=== PATIENT | male | born 1950 | race Caucasian/White ===

== ENCOUNTER → 2017-01-11 | Outpatient (CLI) | payer BC ==
[~2017-01-11] MED LIST: ASPEC325 PO; FLM4 PO; FLUO1TAB12 PO; LISI-461 PO; OMEG10007 PO; PLV75 PO; ZCR20 PO
== END | disposition home or self-care (01) ==
LOC: C.PATHSPEC 15:17
PROVIDERS: ATTEND Internal Medicine
DX: D23.5 Other benign neoplasm of skin of trunk (principal)

== ENCOUNTER → 2017-02-22 | Outpatient (CLI) | payer BC ==
[2017-02-22 14:06] LABS: URINE APPEARANCE TURBID (CLEAR); URINE BILIRUBIN NEG (NEG); URINE COLOR ORANGE; URINE NITRITE NEG (NEG); URINE SPECIFIC GRAVITY 1.024 (1.000-1.030); UROBILINOGEN NEG (NEG)
[2017-02-22 14:07] LABS: MANUAL MICROSCOPIC REQUIRED? NO; REVIEW REQ? NO
[2017-02-22 14:13] LABS: BLOOD UREA NITROGEN 15 mg/dl (7-18); BUN/CREATININE RATIO 15.3 (10-20); CALCIUM 8.7 mg/dl (8.5-10.1); CARBON DIOXIDE 26 mmol/L (21-32); CHLORIDE 107 mmol/L (98-107); GLUCOSE 134 mg/dl (70-99); POTASSIUM 3.7 mmol/L (3.5-5.1); SODIUM 141 mmol/L (136-145)
[2017-02-22 14:16] LABS: CHOLESTEROL 143 mg/dl (0-200); CHOLESTEROL/HDL RATIO 3.3; HDL CHOLESTEROL 43 mg/dl; TRIGLYCERIDES 126 mg/dl (0-150); VERY LOW DENSITY LIPOPROT CALC 25 mg/dl
[2017-02-22 14:30] LABS: ESTIMATED AVERAGE GLUCOSE 123 mg/dl; HA1C FLAG Normal (Normal)
== END | disposition home or self-care (01) ==
LOC: C.LABSPEC 12:42
PROVIDERS: ATTEND Internal Medicine
DX: Z00.00 Encounter for general adult medical examination without abnormal findings (principal); E11.9 Type 2 diabetes mellitus without complications; E78.5 Hyperlipidemia, unspecified; I10 Essential (primary) hypertension

== ENCOUNTER → 2017-09-15 | Outpatient (CLI) | payer BC ==
[2017-09-15 13:46] LABS: BLOOD UREA NITROGEN 17 mg/dl (7-18); BUN/CREATININE RATIO 17.4 (10-20); CALCIUM 8.4 mg/dl (8.5-10.1); CARBON DIOXIDE 24 mmol/L (21-32); CHLORIDE 109 mmol/L (98-107); CHOLESTEROL 146 mg/dl (0-200); CREATININE 0.98 mg/dl (0.60-1.40); GLUCOSE 151 mg/dl (70-99); POTASSIUM 3.7 mmol/L (3.5-5.1); SODIUM 141 mmol/L (136-145)
[2017-09-15 13:49] LABS: CHOLESTEROL/HDL RATIO 3.7; HDL CHOLESTEROL 39 mg/dl; TRIGLYCERIDES 166 mg/dl (0-150); VERY LOW DENSITY LIPOPROT CALC 33 mg/dl
[2017-09-15 13:51] LABS: ESTIMATED AVERAGE GLUCOSE 137 mg/dl; HA1C FLAG Normal (Normal)
== END | disposition home or self-care (01) ==
LOC: C.LABSPEC 12:29
PROVIDERS: ATTEND Internal Medicine
DX: E11.9 Type 2 diabetes mellitus without complications (principal); E78.5 Hyperlipidemia, unspecified; I10 Essential (primary) hypertension; Z11.59 Encounter for screening for other viral diseases

== ENCOUNTER → 2017-11-29 | Outpatient (CLI) | payer BC ==
[~2017-11-29] MED LIST changes: +ACET-1311 PO; +ASPI-113 PO; +DOCU100C PO; +OXYC-737 PO
--- NOTE | 2017-11-29 10:52 | DIAGNOSTIC IMAGING REPORT ---
CHEST PREADMISSION(PA/LAT) CLINICAL HISTORY: BRONCHITIS, R/O L SIDED PNEUMONIA dyspnea COMPARISON STUDY: No previous studies for comparison. FINDINGS: The bones soft tissues and hemidiaphragms are normal. The cardiomediastinal silhouette is normal. The lungs are clear. The pulmonary vasculature is normal. IMPRESSION: Negative chest. The above report was generated using voice recognition software. It may contain grammatical, syntax or spelling errors. Electronically signed by: Mick Dillard M.D. 11/29/2017 10:51 AM Dictated Date/Time: 11/29/2017 10:51 AM
== END | disposition home or self-care (01) ==
LOC: C.RAD 10:17
PROVIDERS: ATTEND Internal Medicine
DX: J40 Bronchitis, not specified as acute or chronic (principal)

== ENCOUNTER → 2018-02-16 | Outpatient (CLI) | payer BC ==
[~2018-02-16] MED LIST changes: -ACET-1311 PO; -ASPI-113 PO; -DOCU100C PO; -OXYC-737 PO
[2018-02-16 13:35] LABS: HEMOGLOBIN A1C 6.3 % (4.5-5.6)
[2018-02-16 13:47] LABS: BLOOD UREA NITROGEN 18 mg/dl (7-18); CARBON DIOXIDE 21 mmol/L (21-32); CREATININE 0.98 mg/dl (0.60-1.40); GLUCOSE 154 mg/dl (70-99); POTASSIUM 3.7 mmol/L (3.5-5.1); SODIUM 140 mmol/L (136-145)
[2018-02-16 13:50] LABS: CHOLESTEROL 150 mg/dl (0-200); LDL CHOLESTEROL (DIRECT) 100 mg/dl
== END | disposition home or self-care (01) ==
LOC: C.LABSPEC 12:32
PROVIDERS: ATTEND Internal Medicine
DX: E11.9 Type 2 diabetes mellitus without complications (principal); I10 Essential (primary) hypertension; E78.5 Hyperlipidemia, unspecified

== ENCOUNTER → 2018-06-25 | Outpatient (CLI) | payer BC ==
[~2018-06-25] MED LIST changes: +ACET-1311 PO; -ASPEC325 PO; +ASPI-113 PO; +DOCU100C PO
--- NOTE | 2018-06-25 14:42 | DIAGNOSTIC IMAGING REPORT ---
CHEST 2 VIEWS ROUTINE HISTORY: 67 years-old Male pat preoperative exam. No acute chest complaints COMPARISON: Chest radiograph 11/29/2017 TECHNIQUE: PA and lateral views of the chest FINDINGS: Mild right hemidiaphragmatic elevation. Cardiac mediastinal and hilar silhouettes are within normal limits. There is no pneumothorax, pleural effusion, focal airspace consolidation or overt pulmonary edema. The bones of the chest appear grossly intact. Multilevel spondylitic spurring of the spine. IMPRESSION: No acute process. The above report was generated using voice recognition software. It may contain grammatical, syntax or spelling errors. Electronically signed by: Jovanni Reed M.D. 06/25/2018 2:41 PM Dictated Date/Time: 06/25/2018 2:39 PM
[2018-06-25 14:55] LABS: BASO % 0.2 %; BASO ABS # 0.01 K/uL (0-0.2); EOS % 0.8 %; EOS ABS # 0.05 K/uL (0-0.5); HEMATOCRIT 42.6 % (42-52); HEMOGLOBIN 14.4 g/dL (14.0-18.0); IG# 0.02 K/uL (0.00-0.02); LYMPH ABS # 1.14 K/uL (1.2-3.4); MEAN CELL VOLUME 92.6 fL (80-100); MEAN CORPUSCULAR HEMOGLOBIN 31.3 pg (25-34); MEAN CORPUSCULAR HGB CONC 33.8 g/dl (32-36); MEAN PLATELET VOLUME 10.3 fL (7.4-10.4); MONO % 7.1 %; MONO ABS # 0.45 K/uL (0.11-0.59); NEUT % 73.6 %; NEUT ABS # 4.66 K/uL (1.4-6.5); PLATELET COUNT 212 K/uL (130-400); RED CELL DISTRIBUTION WIDTH CV 14.7 % (11.5-14.5); RED CELL DISTRIBUTION WIDTH SD 49.3 fL (36.4-46.3); WHITE BLOOD COUNT 6.33 K/uL (4.8-10.8)
[2018-06-25 15:01] LABS: BLOOD UREA NITROGEN 20 mg/dl (7-18); CALCIUM 8.5 mg/dl (8.5-10.1); CARBON DIOXIDE 25 mmol/L (21-32); CREATININE 1.01 mg/dl (0.60-1.40); GLUCOSE 208 mg/dl (70-99); POTASSIUM 4.2 mmol/L (3.5-5.1); SODIUM 140 mmol/L (136-145)
[2018-06-25 15:09] LABS: PTT PATIENT 25.4 SECONDS (21.0-31.0)
== END | disposition home or self-care (01) ==
LOC: C.RAD 13:46
PROVIDERS: ATTEND Surgery Vascular Surgery
DX: Z01.810 Encounter for preprocedural cardiovascular examination (principal); Z01.811 Encounter for preprocedural respiratory examination; Z01.812 Encounter for preprocedural laboratory examination

== ENCOUNTER 2018-06-29 05:58 | Observation (INO) | payer BC, OTHER ==
[2018-06-20 12:43] VITALS: BMI 26.0
--- NOTE | 2018-06-25 10:01 | DIAGNOSTIC IMAGING REPORT ---
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 3-D coronal and sagittal MIPS were obtained from the axial data set and were submitted for review. Additional 3-D rendering images were generated from a separate workstation. All measurements were obtained according to NASCET criteria. A dose lowering technique was used consistent with the principals of JEREMY. FINDINGS: CTA: The imaged inferior cardiac chambers are moderately enlarged with coronary arterial calcifications noted. The visualized ascending thoracic aorta appears mildly dilated measuring up to 4.1 cm in AP dimension. There is tortuosity of the descending thoracic aorta. Moderate mixed plaquing about the aorta and proximal vessels. There is fusiform aneurysmal dilation of the infrarenal abdominal aorta measuring up to 3.7 x 3.0 cm in AP and transverse dimension. Dilation of the left common iliac artery measures up to 2.4 cm. The bilateral common, external and internal iliac arteries are widely patent. Mixed plaque formation at the origin of the superior mesenteric artery which is widely patent. The celiac trunk and inferior mesenteric arteries are also widely patent. There is patency of the bilateral renal arteries. RIGHT LOWER EXTREMITY: The common femoral, profunda femoris and superficial femoral arteries are widely patent with moderate degree of mixed atheromatous and atherosclerotic plaquing present.. There is fusiform partially thrombosed aneurysmal dilation of the popliteal artery measuring up to 2.7 x 3.1 cm in AP and transverse dimension for a craniocaudal length of 6.0 cm, image 113 series 3 and image 11 series 301 which begins at the level of the distal femoral metaphysis extending to the level of the tibiofemoral articulation. Patent tibioperoneal trunk, posterior tibial, peroneal and anterior tibial arteries. Slightly diminished flow within the peroneal artery of the mid to distal lower leg with only two-vessel flow seen at the level of the ankle. LEFT LOWER EXTREMITY: The common femoral, profunda femoris and superficial femoral arteries are widely patent with moderate degree of mixed atheromatous and atherosclerotic plaquing. There is diminished flow about the left lower extremity extending from the knee distally. Within the limitations of the study, the popliteal artery, tibioperoneal trunk, posterior tibial, peroneal and anterior tibial arteries appear patent with three-vessel flow seen to level of the ankle. Degenerative changes about the knees and ankles. CT ABDOMEN AND PELVIS: Mild bronchial wall thickening about the lung bases. 4 mm solid nodule of the lateral basal segment left lower lobe, image 45 series 3. No pneumatosis or pneumoperitoneum. Gallbladder is mildly distended. Liver, spleen, and adrenal glands are unremarkable. The spleen appears mildly enlarged. Mild nonspecific bilateral perinephric stranding. 1.3 cm cyst of the inferior pole left kidney. Mild parenchymal thinning with cortical scarring of the superior pole right kidney. No ureteral calculi or obstructive uropathy. Prostamegaly. Partially decompressed bladder. Moderate fat filled left inguinal hernia. IVC is unremarkable. Mildly prominent likely physiologic nonenlarged inguinal lymph nodes. Small sliding-type hiatal hernia. No bowel obstruction or focal bowel wall thickening. Colonic diverticulosis without diverticulitis. Terminal ileum and appendix appear unremarkable. The soft tissues appear to be within normal limits. Small fat filled periumbilical hernia, diastases 1.6 cm. Bilateral gynecomastia. Degenerative changes of the spine noted. IMPRESSION: 1. Partially thrombosed popliteal artery aneurysm redemonstrated measuring up to 2.7 x 3.1 cm for a craniocaudal length of 6 cm. 2. Mild dilation of the ascending thoracic aorta is also noted along with fusiform aneurysmal dilation of the infrarenal abdominal aorta measuring up to 3.7 x 3.0 cm. Left common iliac artery is also dilated at 2.4 cm. 3. Diminished contrast opacification involving the left lower extremity arterial structures without evidence of a focal high-grade stenosis or vessel occlusion. 4. No acute intra-abdominal or intrapelvic abnormality identified. 5. Colonic diverticulosis without diverticulitis. 6. 4 mm solid nodule of the lateral basal segment left lower lobe. 7. Additional findings as above. Please refer to below summary of Fleischner criteria recommendations for follow-up of incidental CT nodules (Micha Mustafa, Guidelines for management of small pulmonary nodules detected on CT scans: A statement from the Fleischner Society, Radiology 237: [phone].) SOLID NODULES Solitary nodule size: <6 mm * Low risk patients: no follow-up needed * high risk patients: optional CT at 12 months Note: newly detected indeterminate nodule in persons 35 years of age or older. * Low risk patients: minimal or absent history of smoking and/or other known risk factors * high risk patients: history of smoking or of other known risk factors (e.g. first degree relative with lung cancer, or exposure to asbestos, radon, uranium) * if a nodule up to 8 mm is partly solid or is ground glass further follow-up is required after 24 months to exclude possible slow growing adenocarcinoma (BRAVO) The above report was generated using voice recognition software. It may contain grammatical, syntax or spelling errors. Electronically signed by: Jovanni Reed M.D. 06/25/2018 10:00 AM Dictated Date/Time: 06/25/2018 9:35 AM
--- NOTE | 2018-06-25 13:52 | PAT Medication Instructions ---
Service Date Jun 25, 2018. Current Home Medication List Acetaminophen (Tylenol), 3 TABS PO QD PRN for Pain Aspirin Enteric Coated (Ecotrin Or Generic), 325 MG PO QAM Clopidogrel Bisulfate (Clopidogrel), 75 MG PO QAM Docusate Sodium (Stool Softener), 100 MG PO BID Fish Oil (Gilbert-3), 1 CAP PO QAM Fluoxetine Hcl (Fluoxetine Hcl), 20 MG PO QAM Lisinopril (Zestril), 10 MG PO QAM Simvastatin (Simvastatin), 20 MG PO HS Tamsulosin HCl (Tamsulosin HCl), 0.4 MG PO QPM Medication Instructions For Your Scheduled Surgery - Hold the following medications starting 06/26/18: Fish Oil (Gilbert-3), 1 CAP PO QAM - Check with surgeon and prescribing physician for instructions: Aspirin Enteric Coated (Ecotrin Or Generic), 325 MG PO QAM Clopidogrel Bisulfate (Clopidogrel), 75 MG PO QAM - Hold the following medications the morning of surgery: Docusate Sodium (Stool Softener), 100 MG PO BID Lisinopril (Zestril), 10 MG PO QAM - Take the following medications the morning of surgery with a sip of water: Fluoxetine Hcl (Fluoxetine Hcl), 20 MG PO QAM Acetaminophen (Tylenol), 3 TABS PO QD PRN for Pain (okay to take up to 4 hours prior to surgery if needed) - Take the following medications as scheduled the night before surgery: Simvastatin (Simvastatin), 20 MG PO HS Tamsulosin HCl (Tamsulosin HCl), 0.4 MG PO QPM Docusate Sodium (Stool Softener), 100 MG PO BID Acetaminophen (Tylenol), 3 TABS PO QD PRN for Pain (if needed) If you have any questions please call us at [phone] or [phone] or [phone]
[2018-06-25 14:13] VITALS: Ht 182.9 cm; Wt 88.3 kg
[~2018-06-29] VITALS: Ht 182.9 cm; Wt 88.3 kg
[2018-06-29] VITALS (10 sets, daily range): BP systolic 120–153; BP diastolic 67–93; PULSE 56–68; TEMP 36.6–36.7; O2SAT 94–100
--- NOTE | 2018-06-29 05:39 | History and Physical ---
History & Physical Date of Service Jun 29, 2018. History & Physical CC: Right popliteal artery aneurysm HPI: I had the pleasure of seeing your patient in clinic today for followup of his incidentally diagnosed right popliteal artery aneurysm. As you know, he was recently in the emergency department for evaluation of right groin pain. The pain has significantly improved and he attributes it to muscle strain associated with getting in and out of the a large truck. At the time of workup for the right groin pain, he was found to have a right popliteal artery aneurysm that is 3.5 cm in diameter. He states that he has been asymptomatic and has not had any sudden onset of coolness or numbness of the foot, though does state that his bilateral feet are cool at most times. He denies any symptoms of claudication and states he is able to maintain a significant level of activity. 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 He also has hypertension and BPH. MEDICATIONS: Aspirin 325 daily, Plavix 75 daily, docusate, fluoxetine, lisinopril, omega-3 supplement, simvastatin 20, and tamsulosin 0.4 mg daily. He denies any known allergies to medications. FAMILY HISTORY: Significant for CAD and diabetes. 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 He is . He had a remote 5-pack-year history of smoking, however, quit almost 40 years ago. He does drink approximately 3 beers per week. He denies any illicit drug use. PHYSICAL EXAMINATION: Mr. Hill is well-appearing. His blood pressure is 124/ 78 on the left and 126/80 on the right. His heart rate is 64 and he is saturating at 95% on room air. His head is normocephalic and atraumatic. His neck does not have carotid bruits and is supple. His heart rate and rhythm are regular. His lungs are clear to auscultation bilaterally. His radial and femoral pulses are 2+. His left dorsalis pedis pulse is 2+ and right is 1+. His bilateral feet are cool and have sluggish capillary refill. His strength is 5/5 in bilateral upper and lower extremities. IMAGING: Mr. Hill does have a right popliteal artery aneurysm that is 3.5 cm in diameter with some clot noted therein. Imp: Popliteal artery aneurysm Plan: Because of the common incidence of bilateral popliteal aneurysms as well as the relationship to abdominal aortic aneurysms, we will schedule Mr. Hill for a CTA of the abdomen and pelvis with runoff to the lower extremities to evaluate for other sites of aneurysmal disease. We will plan on repairing the aneurysm endovascularly for Mr. Hill in the coming weeks. If you have any questions or concerns, please do not hesitate to contact us. Thank you very much for allowing us to participate in the care of your patient. Addendum: Patient underwent CTA which confirmed a right popliteal artery aneurysm and is now admitted for endovascular repair of his popliteal artery aneurysm. I have discussed the risks options and benefits of the procedure with the patient. The patient understands the risks options and benefits and agrees to the procedure.
[~2018-06-29 05:58] MED LIST changes: +OPTIRAY 320 IV PRN
[2018-06-29] MEDS ORDERED: CEFAZOLIN 2000MG IV PUSH 15 ML IV SCH (06:00)
[2018-06-29] MEDS ORDERED: LACTATED RINGER'S 1000ML 1,000 ML IV SCH ×2 (06:00)
[2018-06-29] MEDS ORDERED: HEPARIN SOD (PORCINE) 5000 UNIT/ML 1 ML VIAL ONE (06:59)
[2018-06-29] MEDS ORDERED: PAPAVERINE HCL INJ 30 MG/ML 2 ML VIAL ONE (06:59)
[2018-06-29] MEDS ORDERED: CEFAZOLIN SOD 1 GM VIAL ONE (07:00)
[2018-06-29] MEDS ORDERED: LIDOCAINE HCL 1% 20 ML VIAL ONE (07:00)
[2018-06-29] MEDS ORDERED: THROMBIN 5000 UNITS KIT ONE (07:00)
[2018-06-29] MEDS ORDERED: BUPIVACAINE/EPINEPHRINE 0.5% MPF 1:200,000 30 ML VIAL ONE (07:00)
[2018-06-29] MEDS ORDERED: IODIXANOL (VISIPAQUE) 270 MG/ML 50ML ONE (07:00)
[2018-06-29] MEDS ORDERED: GELATIN SPONGE SZ 100 ONE (07:01)
[2018-06-29] MEDS ORDERED: EpHEDrine SULFATE INJ 50 MG/ML AMP IV PRN (07:15)
[2018-06-29] MEDS ORDERED: ONDANSETRON INJ 2 MG/ML 2 ML VIAL IV PRN ×2 (07:15→09:45)
[2018-06-29] MEDS ORDERED: ATROPINE SULFATE 0.1 MG/ML 5ML SYR IV PRN (07:15)
[2018-06-29] MEDS ORDERED: FENTANYL CITRATE INJ 50 MCG/1 ML 2 ML VIAL IV PRN (07:15)
--- NOTE | 2018-06-29 07:16 | History & Physical Bridge Note ---
H&P Re-Evaluation Bridge Note: I have examined the patient, reviewed the History & Physical and in the interval since the performance of the History & Physical I have noted the following changes of clinical significance: No changes noted
[2018-06-29] MEDS ORDERED: FENTANYL CITRATE INJ 50 MCG/1 ML 2 ML VIAL ONE ×3 (07:32→09:11)
[2018-06-29] MEDS ORDERED: MIDAZOLAM HCL 1 MG/ML 2ML VIAL ONE ×2 (07:32→08:47)
[2018-06-29] MEDS ORDERED: THROMBIN FOR SOLN 20000 UNIT KIT ONE (07:38)
[2018-06-29] MEDS ORDERED: IV FLUIDS COMPLETED PRN ×2 (08:15→10:00)
[2018-06-29] MEDS ORDERED: KETAMINE HCL INJ 50 MG/ML 10 ML VIAL ONE (08:24)
[2018-06-29] MEDS ORDERED: ONDANSETRON INJ 2 MG/ML 2 ML VIAL ONE (08:41)
[2018-06-29] MEDS ORDERED: LIDOCAINE HCL 2% 2 ML VIAL (20MG/ML) ONE (08:41)
[2018-06-29] MEDS ORDERED: HEPARIN SOD (PORCINE) 1000 UNIT/ML 10 ML VIAL ONE (08:41)
[2018-06-29] MEDS ORDERED: PROPOFOL IV EMULSION 10 MG/ML 20 ML VIAL ONE ×2 (08:41→08:49)
[2018-06-29] MEDS ORDERED: GLYCOPYRROLATE INJ 0.2 MG/ML VIAL ONE (09:18)
[2018-06-29] MEDS ORDERED: ARISTA ABSORBABLE HEMOSTAT 3GM TOP ONE (09:31)
[2018-06-29] MEDS ORDERED: D5W AND 1/2NSS 1,000 ML IV SCH (09:32)
--- NOTE | 2018-06-29 09:32 | [facility] Post Operative Brief Note ---
Immediate Operative Summary Operative Date Jun 29, 2018. Pre-Operative Diagnosis Right popliteal artery aneurysm Post-Operative Diagnosis Same Procedure(s) Performed Endovascular Repair with Stenting of Right Popliteal Artery Aneurysm Surgeon Dr Hood Profile Shaper Operator Surgeon(s) Poornima Cruz MD Estimated Blood Loss 25 Findings Consistent with Post-Op Diagnosis Specimens None Anesthesia Type MAC Disposition Accompanied Pt To Recover: no Disposition: Recovery Room / PACU
[2018-06-29] MEDS ORDERED: IODIXANOL (VISIPAQUE) 270 MG/ML 50ML XX ONE (09:33)
[2018-06-29] MEDS ORDERED: ACETAMINOPHEN 325 MG TAB PO PRN (09:45)
[2018-06-29] MEDS ORDERED: OXYCODONE/ACETAMINOPHEN 5-325 TAB PO PRN (09:45)
--- NOTE | 2018-06-29 10:30 | Anesthesiology Progress Note ---
Anesthesia Post Op Note Date & Time Jun 29, 2018 at 10:30 Vital Signs Pain Intensity: 0 Vital Signs Past 12 Hours Date Time Temp Pulse Resp B/P (MAP) Pulse Ox O2 Delivery O2 Flow Rate FiO2 06/29/18 10:25 36.4 65 16 110/77 96 Room Air 06/29/18 10:15 36.4 73 16 117/76 96 Room Air 06/29/18 10:05 74 16 112/77 96 Room Air 06/29/18 09:55 71 16 108/75 96 Room Air 06/29/18 09:46 36.4 73 16 115/72 95 Oxymask 10 06/29/18 06:43 95 Room Air Notes Mental Status: alert / awake / arousable, participated in evaluation Pt Amnestic to Procedure: Yes Nausea / Vomiting: adequately controlled Pain: adequately controlled Airway Patency, RR, SpO2: stable & adequate BP & HR: stable & adequate Hydration State: stable & adequate Anesthetic Complications: no major complications apparent
[2018-06-29] MEDS: CEFAZOLIN IV 1,000 MG in SYRINGE 0 ML IV SCH ×2 (13:53→21:47)
[2018-06-29] MEDS ORDERED: NURSING DECISION MEDICATION ORDER SCH (15:15)
[2018-06-29] MEDS: DOCUSATE SODIUM 100 MG CAP PO SCH (20:50)
[2018-06-29] MEDS ORDERED: SIMVASTATIN 20 MG TAB PO SCH (21:00)
[2018-06-29] MEDS ORDERED: TAMSULOSIN HCL 0.4 MG CAP PO SCH (21:00)
[2018-06-30 03:10] VITALS: BP 125/75; PULSE 66; TEMP 37.1; O2SAT 95
[2018-06-30 06:55] VITALS: BP 134/76; PULSE 62; TEMP 36.9; O2SAT 95
--- NOTE | 2018-06-30 08:15 | Progress Note ---
Progress Note Date of Service: Jun 30, 2018. Subjective No complaints, Problem List Medical Problems: (1) Groin strain Status: Acute Objective Vital Signs Vital Signs Past 12 Hours Date Time Temp Pulse Resp B/P (MAP) Pulse Ox O2 Delivery O2 Flow Rate FiO2 06/30/18 06:55 36.9 62 16 134/76 (95) 95 Room Air 06/30/18 03:10 37.1 66 14 125/75 (92) 95 Room Air 06/30/18 00:00 Room Air 06/29/18 23:45 36.6 68 14 142/67 (92) 94 Room Air Exam Awake and alert VSS Afebrile Puncture site dry and clean No hematoma Good distal flow Imp: Post endo pop artery repair Plan: Doing well D/C today
--- NOTE | 2018-06-30 08:19 | Discharge Instructions ---
Discharge Instructions Date of Service Jun 30, 2018. Admission Reason for Admission: Right Popliteal Artery Aneurysm Discharge Discharge Diagnosis / Problem: Right popliteal artery aneuyrsm Discharge Goals Goal(s): Therapeutic intervention Activity Recommendations Activity Limitations: per Instructions/Follow-up section Lifting Limitations: none Exercise/Sports Limitations: none May Resume Sexual Activity: when tolerated Shower/Bathe: no limitations Driving or Machine Use: no limitations . Instructions / Follow-Up Instructions / Follow-Up Call [phone] to schedule a follow up appointment if one not already scheduled. SPECIAL CARE INSTRUCTIONS: Medications: * Continue to take your medications as directed. If you have been given a prescription for Plavix, please fill it immediately and take as directed. Incision Care: * Your puncture site may have some bruising and minor swelling for about one week. * You will have a small dressing covering your puncture site. You may remove the dressing after 24 hours and shower. You may let the warm soapy water run over it, but be sure to dry the puncture site well and keep it dry. * DO NOT IMMERSE THE INCISION IN A TUB/POOL/etc. UNTIL HEALED. * Puncture sites should be kept covered with a band-aid until it begins to heal. Restrictions: * Depending on whether you leg or arm was punctured to access the arteries, you will be required to lay flat, hold your arm still, or both, for about 4 hours after the procedure to prevent bleeding. * Limit your activity for the first 48 hours. You may walk and go up and down steps. Avoid excessive bending or movement at the puncture site. Possible Complications: * Excessive Swelling - after blood flow is improved you may notice increased swelling in the lower legs. This is a normal response. This usually depends on the amount of blockages in the leg, how long they have been there prior to your procedure and how much blood flow was restored. Elevating your legs will help to improve this. Please notify our office ([phone] ) if the swelling does not go away after lying in bed overnight. * Infection/Drainage/Bleeding - Drainage or bleeding from the puncture site should be minimal. If you have excessive bleeding or drainage, call our office ([phone]) right away. * Pain - You may experience some mild pain or soreness at your puncture site. If your pain does not improve, please contact our office ([phone]). Call your doctor and seek emergent treatment if you develop: * Temperature above 101 degrees * Any fever or chills * Any redness or purulent drainage from the puncture site * Any new dusky/blue colored toes or feet with coolness or sharp or aching pain. SKIN IRRITATION: * You may experience some redness and/or swelling in the area where radiation was administered. If any skin irritation occurs, please contact your family physician. FOLLOW UP VISIT: Keep any scheduled doctor appointments. Current Hospital Diet Patient's current hospital diet: AHA Diet (Heart Healthy) Discharge Diet Recommended Diet: AHA Diet (Heart Healthy) Procedures Procedures Performed: Endovascular Repair with Stenting of Right Popliteal Artery Aneurysm Pending Studies Studies pending at discharge: no Medical Emergencies . Who to Call and When: Medical Emergencies: If at any time you feel your situation is an emergency, please call 911 immediately. . Non-Emergent Contact Non-Emergency issues call your: Surgeon . "Provider Documentation" section prepared by Nathan Hood. .
[2018-06-30 08:22] VITALS: O2SAT 95
[2018-06-30 08:29] VITALS: BP 134/76; PULSE 62; TEMP 36.9; O2SAT 95
[2018-06-30] MEDS: DOCUSATE SODIUM 100 MG CAP PO SCH (08:38)
[2018-06-30] MEDS ORDERED: CLOPIDOGREL BISULFATE 75 MG TAB PO SCH (09:00)
[2018-06-30] MEDS ORDERED: ENOXAPARIN 30 MG/0.3 ML SYR SQ SCH (09:00)
[2018-06-30] MEDS ORDERED: ASPIRIN 325 MG ECTAB PO SCH (09:00)
[2018-06-30] MEDS ORDERED: LISINOPRIL 10 MG TAB PO SCH (09:00)
[2018-06-30] MEDS ORDERED: FLUOXETINE HCL 20 MG CAP PO SCH (09:00)
== END 2018-06-30 10:16 | disposition home or self-care (01) ==
LOC: C.ACU 05:58 → C.MSN 09:36 → ENRESERV 10:25
PROVIDERS: ADMIT Surgery Vascular Surgery; ATTEND Surgery Vascular Surgery
DX: I72.4 Aneurysm of artery of lower extremity (principal); I10 Essential (primary) hypertension; Z86.73 Personal history of transient ischemic attack (TIA), and cerebral infarction without residual deficits; Z79.82 Long term (current) use of aspirin

== ENCOUNTER → 2018-07-11 | Outpatient (CLI) | payer BC ==
[~2018-07-11] MED LIST changes: -OPTIRAY 320 IV PRN
--- NOTE | 2018-07-11 11:57 | DIAGNOSTIC IMAGING REPORT ---
RIGHT HIP 2 VIEWS HISTORY: Right HIP PAIN COMPARISON: None. FINDINGS: There is no fracture or dislocation. Soft tissues are unremarkable. The visualized pelvic bones are intact. Mild cartilage space narrowing and small marginal osteophyte within the right acetabulum. This is consistent with mild degenerative change. IMPRESSION: Moderate osteoarthritis within the right hip. No fractures. Electronically signed by: Alexey Hennessy M.D. 07/11/2018 11:56 AM Dictated Date/Time: 07/11/2018 11:49 AM
== END | disposition home or self-care (01) ==
LOC: C.RAD 10:50
PROVIDERS: ATTEND Internal Medicine
DX: M16.11 Unilateral primary osteoarthritis, right hip (principal)

== ENCOUNTER 2023-03-31 16:34 | Inpatient (IN) ==
[2023-03-31] MEDS ORDERED: PIPERACILLIN/TAZOBACTAM 4.5 GM/120 ML BAG IV ONE (16:43)
--- NOTE | 2023-03-31 16:53 | Emergency Department Note ---
Impression & Plan DKA (diabetic ketoacidosis), Acute pancreatitis, GUILLERMINA (acute kidney injury), Acute hyperkalemia, Elevated LFTs, Hypoxia, Metabolic acidosis ED Provider Note NAME: RADHA BERGMAN AGE: 72 SEX: M : 1950 ARRIVES VIA: Ambulance INFORMANT: Patient, EMS ED PROVIDER(S): Rome Corbett DO CHIEF COMPLAINT: Difficulty breathing HPI: The patient is a 72-year-old male who presented to the emergency department by ambulance for an evaluation of difficulty breathing. The patient was in his basement when family members thought he was having some difficulty breathing. On the way to check on him he seemed to be breathing very fast and he was some what confused. They called 911. The patient was evaluated by the prehospital personnel. He was found to have clear lungs but significant tachypnea and oxygen saturations were low. I did receive a prehospital notification about the patient. He was found to have hypoxia as well as hyperglycemia. The patient himself offers no complaints. He denies having any headache. He denies having any recent trauma. He denies having any abdominal pain or chest pain but he does seem somewhat slow and confused at times. ROS: See above HPI for pertinent positives & negatives. A total of 10 systems reviewed and were otherwise negative. PAST MEDICAL HISTORY: See Below PAST SURGICAL HISTORY: See Below FAMILY HISTORY: See Below SOCIAL HISTORY: See Below HOME MEDICATIONS: See Below ALLERGIES: See Below VITALS: See Below PHYSICAL EXAMINATION: GENERAL: Patient is very anxious. He is awake to verbal commands. He follows commands slowly. EYES: The conjunctivae are clear. The pupils are round and reactive. EARS, NOSE, MOUTH AND THROAT: The nose is without any evidence of any deformity. Mucous membranes are dry. NECK: The neck is nontender and supple. RESPIRATORY: Significant tachypnea was noted. Diminished breath sounds are noted at both bases but overall lungs were clear. CARDIOVASCULAR: Regular rate and rhythm noted there no murmurs rubs or gallops normal S1 normal S2. GASTROINTESTINAL: Abdomen is distended and tympanitic. There is significant tenderness over the entire abdomen. MUSCULOSKELETAL/EXTREMITIES: There is no evidence of gross deformity full range of motion is noted in the hips and shoulders. SKIN: The skin is cool and dry. There is no significant edema. NEUROLOGIC: Patient is awake to verbal commands. He is oriented to person place but not time. Strength was symmetric. MEDICAL DECISION MAKING: The patient is a 72-year-old male who presented to the emergency department with difficulty breathing. He was found to be hypoxic and tachypneic with clear lungs prior to arrival. The patient was found to have significant metabolic derangement with an acute elevation in his creatinine as well as his potassium. He was treated with IV fluid hydration as well as calcium and insulin and DuoNeb treatment. He was reevaluated multiple times. The patient did have a very distended abdomen. CT of the abdomen and pelvis was obtained. I discussed patient's laboratory and radiographic studies with him and his family members. He was treated with IV antibiotics as well. The patient continued to improve clinically. I discussed his condition with the on-call [place] [facility]ist group. They have agreed to evaluate the patient in the emergency department for further management and disposition. Triage Nursing notes reviewed. Prior medical records reviewed Vital Signs: reviewed and remarkable for tachypnea and hypothermia. Differential diagnosis: Infection, dehydration, metabolic abnormality, hypo/hyperglycemia, electrolyte disturbance, anemia, hypoxia, cardiac sources, intracerebral event, toxicologic, neurologic, as well as other pathologies. ER treatment provided: See below Diagnostics interpreted by me: ECG: EKG was obtained in the emergency department. My interpretation is sinus rhythm at 92 bpm. There is no ectopy. Nonspecific interventricular conduction delay was noted. This was compared to a tracing from July 31, 2022. There was a slight widening in the QRS complex otherwise no significant changes were noted. Cardiac Monitoring: An order was placed for continuous cardiac monitoring. The monitor shows a rate of 92 bpm with sinus rhythm. Laboratory studies: As stated above and show below. Imaging studies: See below. Radiographic imaging was reviewed by myself Consultation(s): I discussed this case with Dr. Bazan who is on-call for the [facility] hospitalist group. ED COURSE: Procedures: none Critical Care: I have personally spent greater than 45 minutes of critical care time in the direct management of this patient. This includes bedside care, interpretation of diagnostic studies, and testing, discussion with consultants, patient, and family members, and other required patient management activities. This 45 minutes is in excess of all separately billable procedures. 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 completed tx over 1 year ago; follows w/ [facility] last visit 06/2022 TIA (transient ischemic attack) x2 last one 8-10yrs ago; has problems processing info and takes longer to process, but can answer questions appropriately, per daughter Surgical History S/P colonoscopy S/P hernia repair Social History Smoking Status: Unknown if ever smoked Tobacco Type: Smokeless Tobacco (Dip or Chew) Second Hand Exposure: No; Do You Dip or Chew Tobacco: Yes; Hx Alcohol Use: Yes Alcohol type: beer Alcohol Intake Frequency: 2-4 x/Month Hx Substance Use: No Preferred Language: Latvian Communication Ability: Effective Visual Impairment: No Limitations Hearing Ability: Normal Ethnoarchaeologist Required: No Beliefs That Will Affect Care: None marital status: Current Living Situation: Alone Current Living Situation Comment: dtr goes to drs appointments - he lives by himself current occupational status: retired Feels Safe at Home: Yes Safety Concerns: Feels Safe At This Time Assistive Devices: None Allergies Allergies Allergy/AdvReac Type Severity Reaction Status Date / Time No Known Allergies Allergy Verified 07/31/22 18:11 Home Meds Home Medications Medication Instructions Recorded Confirmed clopidogrel 75 mg tablet 75 mg PO QAM 08/17/20 03/31/23 fluoxetine 20 mg capsule 20 mg PO QAM 08/17/20 03/31/23 lisinopril 10 mg tablet 10 mg PO QAM 08/17/20 03/31/23 metformin 500 mg tablet 1,000 mg PO BID 08/17/20 03/31/23 aspirin 81 mg tablet,delayed 81 mg PO DAILY 03/31/23 03/31/23 release levothyroxine 88 mcg tablet 88 mcg PO DAILY 03/31/23 03/31/23 (Synthroid) magnesium oxide 400 mg PO BID 03/31/23 03/31/23 simvastatin 40 mg tablet 40 mg PO DAILY 03/31/23 03/31/23 tamsulosin 0.4 mg capsule 0.4 mg PO DAILY 03/31/23 03/31/23 Previous Rx's Medication Instructions Recorded pantoprazole 40 mg tablet,delayed 40 mg PO DAILY #30 tabs 07/05/22 release Results & Data (ED) Vital Signs Vital Signs - 24 hr 03/31/23 16:51 03/31/23 16:38 03/31/23 17:30 Temperature 34.9 C L Temperature Source Rectal Pulse Rate 102 H 89 84 Pulse Rate from SpO2 Sensor 85 Respiratory Rate 35 H 45 H Respiratory Effort / Characteristics Spontaneous Respiratory Depth Shallow Respiratory Pattern Tachypnea Blood Pressure 107/80 94/70 L Blood Pressure Mean 89 78 Blood Pressure Position Lying Pulse Oximetry 88 L 88 L Oxygen Delivery Method Non-rebreather Non-rebreather Oxygen Flow Rate 15 Fraction of Inspired Oxygen Sepsis Recent Fever Within 48 Hours No Sepsis New/Unexplained Change in Mental Status Yes Sepsis Action Taken by Nursing Physician Notified 03/31/23 17:45 03/31/23 18:00 03/31/23 18:27 Temperature Temperature Source Pulse Rate 81 77 92 H Pulse Rate from SpO2 Sensor 79 76 Respiratory Rate 44 H 36 H 31 H Respiratory Effort / Characteristics Spontaneous Respiratory Depth Deep Respiratory Pattern Tachypnea Blood Pressure 93/66 L 111/76 Blood Pressure Mean 75 87 Blood Pressure Position Pulse Oximetry 90 93 90 Oxygen Delivery Method Non-rebreather Non-rebreather Oxygen Flow Rate 15 15 Fraction of Inspired Oxygen 70 Sepsis Recent Fever Within 48 Hours Sepsis New/Unexplained Change in Mental Status Sepsis Action Taken by Nursing 03/31/23 18:21 03/31/23 18:58 03/31/23 19:00 Temperature 35.3 C L 35.6 C L Temperature Source Pulse Rate 92 H 95 H 89 Pulse Rate from SpO2 Sensor 90 96 H 90 Respiratory Rate 33 H 35 H 31 H Respiratory Effort / Characteristics Respiratory Depth Respiratory Pattern Blood Pressure 115/83 121/87 127/70 Blood Pressure Mean 93 98 89 Blood Pressure Position Pulse Oximetry 90 92 95 Oxygen Delivery Method BiPAP BiPAP Oxygen Flow Rate Fraction of Inspired Oxygen 70 70 Sepsis Recent Fever Within 48 Hours Sepsis New/Unexplained Change in Mental Status Sepsis Action Taken by Nursing 03/31/23 19:15 03/31/23 19:39 Temperature 36.2 C L 36.4 C L Temperature Source Pulse Rate 84 84 Pulse Rate from SpO2 Sensor 85 85 Respiratory Rate 34 H 33 H Respiratory Effort / Characteristics Respiratory Depth Respiratory Pattern Blood Pressure 112/74 121/75 Blood Pressure Mean 86 90 Blood Pressure Position Pulse Oximetry 98 96 Oxygen Delivery Method BiPAP BiPAP Oxygen Flow Rate Fraction of Inspired Oxygen 70 70 Sepsis Recent Fever Within 48 Hours Sepsis New/Unexplained Change in Mental Status Sepsis Action Taken by [facility] Medications Current Medication List: was personally reviewed by me Laboratory Data Attestation: I reviewed the patient's lab results. 03/31/23 16:50 03/31/23 16:50 Lab Results 03/31/23 03/31/23 03/31/23 Range/Units 16:50 16:50 16:50 WBC 18.45 H (4.8-10.8) K/ul RBC 5.67 (4.70-6.10) M/uL Hgb 17.5 (14.0-18.0) g/dl POC Hgb (14.0-18.0) g/dl Hct 53.1 H (42.0-52.0) % POC Hct (42-52) % MCV 93.7 (80.0-100.0) fL MCH 30.9 (25.0-34.0) pg MCHC 33.0 (32.0-36.0) g/dL RDW Std Deviation 53.1 H (36.4-46.3) fL RDW Coeff of Dinorah 15.7 H (11.5-14.5) % Plt Count 210 (130-400) K/uL MPV 10.7 (9.4-12.4) fL Immature Gran % (Auto) 0.4 % Neut % (Auto) 90.6 % Lymph % (Auto) 3.1 % Nicholas % (Auto) 5.7 % Eos % (Auto) 0.0 % Baso % (Auto) 0.2 % Neut # (Auto) 16.72 H (1.40-6.50) K/uL Lymph # (Auto) 0.57 L (1.2-3.4) K/uL Nicholas # (Auto) 1.05 H (0.11-0.59) K/uL Eos # (Auto) 0.00 (0-0.50) K/uL Baso # (Auto) 0.03 (0-0.2) K/uL Immature Gran # (Auto) 0.08 (0.01-0.20) K/uL Dohle Bodies 1+ Polychromasia 1+ Echinocytes 2+ PT 13.0 H (9.0-12.0) Seconds INR 1.2 H (0.9-1.1) APTT 26.2 (21.0-31.0) Seconds PTT Ratio 0.9 ABG pH (7.35-7.45) ABG pCO2 (35-46) mmHg ABG pO2 (80-95) mmHg ABG HCO3 (19-24) mmol/L ABG O2 Saturation (90-95) % ABG Base Excess (-9-1.8) mEq/L Donnell Test (Pos) Oxygen Given POC Sodium (135-144) mmol/L Sodium 133 L (136-145) mmol/L POC Potassium (3.3-5.0) mmol/L Potassium 6.9 H* (3.5-5.1) mmol/L POC Chloride (101-112) mmol/L Chloride 98 (98-107) mmol/L Carbon Dioxide 11 L (21-32) mmol/L POC Total CO2 (24-31) mmol/L Anion Gap 24 H (3-11) POC Anion Gap (16-25) mmol/L POC BUN (7-18) mg/dl BUN 42 H (6-23) mg/dl Creatinine 2.35 H (0.6-1.4) mg/dl POC Creatinine (0.6-1.3) mg/dl Est Cr Clr Drug Dosing 32.1 ml/min Est GFR ( Amer) 30.9 ml/min Est GFR (Non-Af Amer) 26.6 ml/min BUN/Creatinine Ratio 17.9 (10-20) Glucose 576 H* (70-99(Fasting)) mg/dl POC Glucose (70-99) mg/dl POC Glucose (other) (70-99) mg/dl Lactate (0.4-2.0) mmol/L Calcium 9.1 (8.6-10.3) mg/dl POC Ioniz Calcium Misha (1.12-1.32) mmol/l Magnesium 2.1 (1.7-2.4) mg/dl Total Bilirubin 6.1 H (0.2-1.0) mg/dl Direct Bilirubin TNP AST 319 H (13-39) U/L ALT 721 H (7-52) U/L Alkaline Phosphatase 142 H (34-104) U/L Lactate Dehydrogenase (86-244) U/L Total Creatine Kinase (30-223) U/L Troponin I High Sens 29.8 H (0-20) pg/ml Total Protein 6.9 (6.0-8.3) gm/dl Albumin 4.1 (3.4-5.0) gm/dl Triglycerides (0-150) mg/dl Lipase 2410 H (11-82) U/L Procalcitonin (0-0.5) ng/ml TSH (0.300-4.500) uIu/ml Free T4 (0.61-1.60) ng/dl Urine Color Urine Appearance (Clear) Urine pH (4.5-7.5) Ur Specific [place] (1.000-1.030) Urine Protein (Negative) Urine Glucose (UA) (Negative) Urine Ketones (Negative) Urine Blood (Negative) Urine Nitrite (Negative) Urine Bilirubin (Negative) Urine Urobilinogen (Negative) Ur Leukocyte Esterase (Negative) Urine WBC (Auto) (0-5) /hpf Urine RBC (Auto) (0-4) /hpf U Hyaline Cast (Auto) (0-5) /lpf U Epithel Cells (Auto) (0-5) /lpf Urine Bacteria (Auto) (Negative) Salicylates (3.0-30) mg/dl Urine Opiates Screen (Neg) Ur Methadone, Qual (Neg) Acetaminophen (10-30) ug/ml Urine Barbiturates (Neg) Ur Phencyclidine (PCP) (Neg) U Amphetamin/Meth Scrn (Neg) MDMA (Ecstasy) Screen (Neg) U Benzodiazepines Scrn (Neg) Ur Cocaine Metabolite (Neg) U Marijuana (THC) Screen (Neg) Ethyl Alcohol mg/dL (<10.0) mg/dl Anaplasma Smear Babesia Smear Lyme Disease IgG Ab (Negative) Lyme Disease IgM Ab (Negative) SARS-CoV-2, RNA, NAAT (NEGATIVE) 03/31/23 03/31/23 03/31/23 Range/Units 16:50 16:54 17:20 WBC (4.8-10.8) K/ul RBC (4.70-6.10) M/uL Hgb (14.0-18.0) g/dl POC Hgb 17.7 (14.0-18.0) g/dl Hct (42.0-52.0) % POC Hct 52 (42-52) % MCV (80.0-100.0) fL MCH (25.0-34.0) pg MCHC (32.0-36.0) g/dL RDW Std Deviation (36.4-46.3) fL RDW Coeff of Dinorah (11.5-14.5) % Plt Count (130-400) K/uL MPV (9.4-12.4) fL Immature Gran % (Auto) % Neut % (Auto) % Lymph % (Auto) % Nicholas % (Auto) % Eos % (Auto) % Baso % (Auto) % Neut # (Auto) (1.40-6.50) K/uL Lymph # (Auto) (1.2-3.4) K/uL Nicholas # (Auto) (0.11-0.59) K/uL Eos # (Auto) (0-0.50) K/uL Baso # (Auto) (0-0.2) K/uL Immature Gran # (Auto) (0.01-0.20) K/uL Dohle Bodies Polychromasia Echinocytes PT (9.0-12.0) Seconds INR (0.9-1.1) APTT (21.0-31.0) Seconds PTT Ratio ABG pH (7.35-7.45) ABG pCO2 (35-46) mmHg ABG pO2 (80-95) mmHg ABG HCO3 (19-24) mmol/L ABG O2 Saturation (90-95) % ABG Base Excess (-9-1.8) mEq/L Donnell Test (Pos) Oxygen Given POC Sodium 133 L (135-144) mmol/L Sodium (136-145) mmol/L POC Potassium 7.2 H* (3.3-5.0) mmol/L Potassium (3.5-5.1) mmol/L POC Chloride 105 (101-112) mmol/L Chloride (98-107) mmol/L Carbon Dioxide (21-32) mmol/L POC Total CO2 13 L (24-31) mmol/L Anion Gap (3-11) POC Anion Gap 24.0 (16-25) mmol/L POC BUN 49 H (7-18) mg/dl BUN (6-23) mg/dl Creatinine (0.6-1.4) mg/dl POC Creatinine 2.2 H (0.6-1.3) mg/dl Est Cr Clr Drug Dosing ml/min Est GFR ( Amer) ml/min Est GFR (Non-Af Amer) ml/min BUN/Creatinine Ratio (10-20) Glucose (70-99(Fasting)) mg/dl POC Glucose (70-99) mg/dl POC Glucose (other) 571 H* (70-99) mg/dl Lactate 12.2 H* (0.4-2.0) mmol/L Calcium (8.6-10.3) mg/dl POC Ioniz Calcium Misha 1.06 L (1.12-1.32) mmol/l Magnesium (1.7-2.4) mg/dl Total Bilirubin (0.2-1.0) mg/dl Direct Bilirubin AST (13-39) U/L ALT (7-52) U/L Alkaline Phosphatase (34-104) U/L Lactate Dehydrogenase (86-244) U/L Total Creatine Kinase (30-223) U/L Troponin I High Sens (0-20) pg/ml Total Protein (6.0-8.3) gm/dl Albumin (3.4-5.0) gm/dl Triglycerides (0-150) mg/dl Lipase (11-82) U/L Procalcitonin 25.05 H (0-0.5) ng/ml TSH (0.300-4.500) uIu/ml Free T4 (0.61-1.60) ng/dl Urine Color Urine Appearance (Clear) Urine pH (4.5-7.5) Ur Specific [place] (1.000-1.030) Urine Protein (Negative) Urine Glucose (UA) (Negative) Urine Ketones (Negative) Urine Blood (Negative) Urine Nitrite (Negative) Urine Bilirubin (Negative) Urine Urobilinogen (Negative) Ur Leukocyte Esterase (Negative) Urine WBC (Auto) (0-5) /hpf Urine RBC (Auto) (0-4) /hpf U Hyaline Cast (Auto) (0-5) /lpf U Epithel Cells (Auto) (0-5) /lpf Urine Bacteria (Auto) (Negative) Salicylates (3.0-30) mg/dl Urine Opiates Screen (Neg) Ur Methadone, Qual (Neg) Acetaminophen (10-30) ug/ml Urine Barbiturates (Neg) Ur Phencyclidine (PCP) (Neg) U Amphetamin/Meth Scrn (Neg) MDMA (Ecstasy) Screen (Neg) U Benzodiazepines Scrn (Neg) Ur Cocaine Metabolite (Neg) U Marijuana (THC) Screen (Neg) Ethyl Alcohol mg/dL (<10.0) mg/dl Anaplasma Smear Babesia Smear Lyme Disease IgG Ab (Negative) Lyme Disease IgM Ab (Negative) SARS-CoV-2, RNA, NAAT (NEGATIVE) 03/31/23 03/31/23 03/31/23 Range/Units 17:24 17:25 18:30 WBC (4.8-10.8) K/ul RBC (4.70-6.10) M/uL Hgb (14.0-18.0) g/dl POC Hgb (14.0-18.0) g/dl Hct (42.0-52.0) % POC Hct (42-52) % MCV (80.0-100.0) fL MCH (25.0-34.0) pg MCHC (32.0-36.0) g/dL RDW Std Deviation (36.4-46.3) fL RDW Coeff of Dinorah (11.5-14.5) % Plt Count (130-400) K/uL MPV (9.4-12.4) fL Immature Gran % (Auto) % Neut % (Auto) % Lymph % (Auto) % Nicholas % (Auto) % Eos % (Auto) % Baso % (Auto) % Neut # (Auto) (1.40-6.50) K/uL Lymph # (Auto) (1.2-3.4) K/uL Nicholas # (Auto) (0.11-0.59) K/uL Eos # (Auto) (0-0.50) K/uL Baso # (Auto) (0-0.2) K/uL Immature Gran # (Auto) (0.01-0.20) K/uL Dohle Bodies Polychromasia Echinocytes PT (9.0-12.0) Seconds INR (0.9-1.1) APTT (21.0-31.0) Seconds PTT Ratio ABG pH 7.23 L (7.35-7.45) ABG pCO2 19 L (35-46) mmHg ABG pO2 65 L (80-95) mmHg ABG HCO3 8 L (19-24) mmol/L ABG O2 Saturation 91.1 (90-95) % ABG Base Excess -17.0 L (-9-1.8) mEq/L Donnell Test Pos (Pos) Oxygen Given ROOM AIR POC Sodium (135-144) mmol/L Sodium (136-145) mmol/L POC Potassium (3.3-5.0) mmol/L Potassium (3.5-5.1) mmol/L POC Chloride (101-112) mmol/L Chloride (98-107) mmol/L Carbon Dioxide (21-32) mmol/L POC Total CO2 (24-31) mmol/L Anion Gap (3-11) POC Anion Gap (16-25) mmol/L POC BUN (7-18) mg/dl BUN (6-23) mg/dl Creatinine (0.6-1.4) mg/dl POC Creatinine (0.6-1.3) mg/dl Est Cr Clr Drug Dosing ml/min Est GFR ( Amer) ml/min Est GFR (Non-Af Amer) ml/min BUN/Creatinine Ratio (10-20) Glucose (70-99(Fasting)) mg/dl POC Glucose (70-99) mg/dl POC Glucose (other) (70-99) mg/dl Lactate (0.4-2.0) mmol/L Calcium (8.6-10.3) mg/dl POC Ioniz Calcium Misha (1.12-1.32) mmol/l Magnesium (1.7-2.4) mg/dl Total Bilirubin (0.2-1.0) mg/dl Direct Bilirubin TNP AST (13-39) U/L ALT (7-52) U/L Alkaline Phosphatase (34-104) U/L Lactate Dehydrogenase (86-244) U/L Total Creatine Kinase (30-223) U/L Troponin I High Sens (0-20) pg/ml Total Protein (6.0-8.3) gm/dl Albumin (3.4-5.0) gm/dl Triglycerides (0-150) mg/dl Lipase (11-82) U/L Procalcitonin (0-0.5) ng/ml TSH (0.300-4.500) uIu/ml Free T4 (0.61-1.60) ng/dl Urine Color Urine Appearance (Clear) Urine pH (4.5-7.5) Ur Specific [place] (1.000-1.030) Urine Protein (Negative) Urine Glucose (UA) (Negative) Urine Ketones (Negative) Urine Blood (Negative) Urine Nitrite (Negative) Urine Bilirubin (Negative) Urine Urobilinogen (Negative) Ur Leukocyte Esterase (Negative) Urine WBC (Auto) (0-5) /hpf Urine RBC (Auto) (0-4) /hpf U Hyaline Cast (Auto) (0-5) /lpf U Epithel Cells (Auto) (0-5) /lpf Urine Bacteria (Auto) (Negative) Salicylates (3.0-30) mg/dl Urine Opiates Screen (Neg) Ur Methadone, Qual (Neg) Acetaminophen (10-30) ug/ml Urine Barbiturates (Neg) Ur Phencyclidine (PCP) (Neg) U Amphetamin/Meth Scrn (Neg) MDMA (Ecstasy) Screen (Neg) U Benzodiazepines Scrn (Neg) Ur Cocaine Metabolite (Neg) U Marijuana (THC) Screen (Neg) Ethyl Alcohol mg/dL (<10.0) mg/dl Anaplasma Smear Babesia Smear Lyme Disease IgG Ab (Negative) Lyme Disease IgM Ab (Negative) SARS-CoV-2, RNA, NAAT NEGATIVE (NEGATIVE) 03/31/23 03/31/23 03/31/23 Range/Units 18:31 18:58 18:58 WBC (4.8-10.8) K/ul RBC (4.70-6.10) M/uL Hgb (14.0-18.0) g/dl POC Hgb (14.0-18.0) g/dl Hct (42.0-52.0) % POC Hct (42-52) % MCV (80.0-100.0) fL MCH (25.0-34.0) pg MCHC (32.0-36.0) g/dL RDW Std Deviation (36.4-46.3) fL RDW Coeff of Dinorah (11.5-14.5) % Plt Count (130-400) K/uL MPV (9.4-12.4) fL Immature Gran % (Auto) % Neut % (Auto) % Lymph % (Auto) % Nicholas % (Auto) % Eos % (Auto) % Baso % (Auto) % Neut # (Auto) (1.40-6.50) K/uL Lymph # (Auto) (1.2-3.4) K/uL Nicholas # (Auto) (0.11-0.59) K/uL Eos # (Auto) (0-0.50) K/uL Baso # (Auto) (0-0.2) K/uL Immature Gran # (Auto) (0.01-0.20) K/uL Dohle Bodies Polychromasia Echinocytes PT (9.0-12.0) Seconds INR (0.9-1.1) APTT (21.0-31.0) Seconds PTT Ratio ABG pH (7.35-7.45) ABG pCO2 (35-46) mmHg ABG pO2 (80-95) mmHg ABG HCO3 (19-24) mmol/L ABG O2 Saturation (90-95) % ABG Base Excess (-9-1.8) mEq/L Donnell Test (Pos) Oxygen Given POC Sodium (135-144) mmol/L Sodium (136-145) mmol/L POC Potassium (3.3-5.0) mmol/L Potassium (3.5-5.1) mmol/L POC Chloride (101-112) mmol/L Chloride (98-107) mmol/L Carbon Dioxide (21-32) mmol/L POC Total CO2 (24-31) mmol/L Anion Gap (3-11) POC Anion Gap (16-25) mmol/L POC BUN (7-18) mg/dl BUN (6-23) mg/dl Creatinine (0.6-1.4) mg/dl POC Creatinine (0.6-1.3) mg/dl Est Cr Clr Drug Dosing ml/min Est GFR ( Amer) ml/min Est GFR (Non-Af Amer) ml/min BUN/Creatinine Ratio (10-20) Glucose (70-99(Fasting)) mg/dl POC Glucose (70-99) mg/dl POC Glucose (other) (70-99) mg/dl Lactate 5.2 H* (0.4-2.0) mmol/L Calcium (8.6-10.3) mg/dl POC Ioniz Calcium Misha (1.12-1.32) mmol/l Magnesium (1.7-2.4) mg/dl Total Bilirubin (0.2-1.0) mg/dl Direct Bilirubin AST (13-39) U/L ALT (7-52) U/L Alkaline Phosphatase (34-104) U/L Lactate Dehydrogenase (86-244) U/L Total Creatine Kinase (30-223) U/L Troponin I High Sens (0-20) pg/ml Total Protein (6.0-8.3) gm/dl Albumin (3.4-5.0) gm/dl Triglycerides (0-150) mg/dl Lipase (11-82) U/L Procalcitonin (0-0.5) ng/ml TSH 0.192 L (0.300-4.500) uIu/ml Free T4 1.06 (0.61-1.60) ng/dl Urine Color Dark Yellow Urine Appearance Cloudy A (Clear) Urine pH 5.0 (4.5-7.5) Ur Specific [place] 1.028 (1.000-1.030) Urine Protein 1+ H (Negative) Urine Glucose (UA) 3+ H (Negative) Urine Ketones 1+ H (Negative) Urine Blood Negative (Negative) Urine Nitrite Negative (Negative) Urine Bilirubin 1+ H (Negative) Urine Urobilinogen Negative (Negative) Ur Leukocyte Esterase Negative (Negative) Urine WBC (Auto) 5-10 H (0-5) /hpf Urine RBC (Auto) 5-10 H (0-4) /hpf U Hyaline Cast (Auto) 5-10 H (0-5) /lpf U Epithel Cells (Auto) 20-30 H (0-5) /lpf Urine Bacteria (Auto) Negative (Negative) Salicylates (3.0-30) mg/dl Urine Opiates Screen (Neg) Ur Methadone, Qual (Neg) Acetaminophen (10-30) ug/ml Urine Barbiturates (Neg) Ur Phencyclidine (PCP) (Neg) U Amphetamin/Meth Scrn (Neg) MDMA (Ecstasy) Screen (Neg) U Benzodiazepines Scrn (Neg) Ur Cocaine Metabolite (Neg) U Marijuana (THC) Screen (Neg) Ethyl Alcohol mg/dL (<10.0) mg/dl Anaplasma Smear Babesia Smear Lyme Disease IgG Ab (Negative) Lyme Disease IgM Ab (Negative) SARS-CoV-2, RNA, NAAT (NEGATIVE) 03/31/23 03/31/23 03/31/23 Range/Units 18:58 19:05 19:37 WBC (4.8-10.8) K/ul RBC (4.70-6.10) M/uL Hgb (14.0-18.0) g/dl POC Hgb (14.0-18.0) g/dl Hct (42.0-52.0) % POC Hct (42-52) % MCV (80.0-100.0) fL MCH (25.0-34.0) pg MCHC (32.0-36.0) g/dL RDW Std Deviation (36.4-46.3) fL RDW Coeff of Dinorah (11.5-14.5) % Plt Count (130-400) K/uL MPV (9.4-12.4) fL Immature Gran % (Auto) % Neut % (Auto) % Lymph % (Auto) % Nicholas % (Auto) % Eos % (Auto) % Baso % (Auto) % Neut # (Auto) (1.40-6.50) K/uL Lymph # (Auto) (1.2-3.4) K/uL Nicholas # (Auto) (0.11-0.59) K/uL Eos # (Auto) (0-0.50) K/uL Baso # (Auto) (0-0.2) K/uL Immature Gran # (Auto) (0.01-0.20) K/uL Dohle Bodies Polychromasia Echinocytes PT (9.0-12.0) Seconds INR (0.9-1.1) APTT (21.0-31.0) Seconds PTT Ratio ABG pH (7.35-7.45) ABG pCO2 (35-46) mmHg ABG pO2 (80-95) mmHg ABG HCO3 (19-24) mmol/L ABG O2 Saturation (90-95) % ABG Base Excess (-9-1.8) mEq/L Donnell Test (Pos) Oxygen Given POC Sodium (135-144) mmol/L Sodium 139 (136-145) mmol/L POC Potassium (3.3-5.0) mmol/L Potassium 5.2 H D (3.5-5.1) mmol/L POC Chloride (101-112) mmol/L Chloride 105 (98-107) mmol/L Carbon Dioxide 16 L (21-32) mmol/L POC Total CO2 (24-31) mmol/L Anion Gap 18 H (3-11) POC Anion Gap (16-25) mmol/L POC BUN (7-18) mg/dl BUN 41 H (6-23) mg/dl Creatinine 2.05 H D (0.6-1.4) mg/dl POC Creatinine (0.6-1.3) mg/dl Est Cr Clr Drug Dosing 36.8 ml/min Est GFR ( Amer) 36.4 ml/min Est GFR (Non-Af Amer) 31.4 ml/min BUN/Creatinine Ratio 20.0 (10-20) Glucose 390 H* (70-99(Fasting)) mg/dl POC Glucose 472 H* (70-99) mg/dl POC Glucose (other) (70-99) mg/dl Lactate (0.4-2.0) mmol/L Calcium 10.2 (8.6-10.3) mg/dl POC Ioniz Calcium Misha (1.12-1.32) mmol/l Magnesium (1.7-2.4) mg/dl Total Bilirubin (0.2-1.0) mg/dl Direct Bilirubin 3.1 H AST (13-39) U/L ALT (7-52) U/L Alkaline Phosphatase (34-104) U/L Lactate Dehydrogenase (86-244) U/L Total Creatine Kinase 136 (30-223) U/L Troponin I High Sens (0-20) pg/ml Total Protein (6.0-8.3) gm/dl Albumin (3.4-5.0) gm/dl Triglycerides 143 (0-150) mg/dl Lipase (11-82) U/L Procalcitonin (0-0.5) ng/ml TSH (0.300-4.500) uIu/ml Free T4 (0.61-1.60) ng/dl Urine Color Urine Appearance (Clear) Urine pH (4.5-7.5) Ur Specific [place] (1.000-1.030) Urine Protein (Negative) Urine Glucose (UA) (Negative) Urine Ketones (Negative) Urine Blood (Negative) Urine Nitrite (Negative) Urine Bilirubin (Negative) Urine Urobilinogen (Negative) Ur Leukocyte Esterase (Negative) Urine WBC (Auto) (0-5) /hpf Urine RBC (Auto) (0-4) /hpf U Hyaline Cast (Auto) (0-5) /lpf U Epithel Cells (Auto) (0-5) /lpf Urine Bacteria (Auto) (Negative) Salicylates (3.0-30) mg/dl Urine Opiates Screen Neg (Neg) Ur Methadone, Qual Neg (Neg) Acetaminophen (10-30) ug/ml Urine Barbiturates Neg (Neg) Ur Phencyclidine (PCP) Neg (Neg) U Amphetamin/Meth Scrn Neg (Neg) MDMA (Ecstasy) Screen Neg (Neg) U Benzodiazepines Scrn Neg (Neg) Ur Cocaine Metabolite Neg (Neg) U Marijuana (THC) Screen Neg (Neg) Ethyl Alcohol mg/dL (<10.0) mg/dl Anaplasma Smear Babesia Smear Lyme Disease IgG Ab (Negative) Lyme Disease IgM Ab (Negative) SARS-CoV-2, RNA, NAAT (NEGATIVE) 03/31/23 03/31/23 03/31/23 Range/Units 19:37 19:37 19:37 WBC (4.8-10.8) K/ul RBC (4.70-6.10) M/uL Hgb (14.0-18.0) g/dl POC Hgb (14.0-18.0) g/dl Hct (42.0-52.0) % POC Hct (42-52) % MCV (80.0-100.0) fL MCH (25.0-34.0) pg MCHC (32.0-36.0) g/dL RDW Std Deviation (36.4-46.3) fL RDW Coeff of Dinorah (11.5-14.5) % Plt Count (130-400) K/uL MPV (9.4-12.4) fL Immature Gran % (Auto) % Neut % (Auto) % Lymph % (Auto) % Nicholas % (Auto) % Eos % (Auto) % Baso % (Auto) % Neut # (Auto) (1.40-6.50) K/uL Lymph # (Auto) (1.2-3.4) K/uL Nicholas # (Auto) (0.11-0.59) K/uL Eos # (Auto) (0-0.50) K/uL Baso # (Auto) (0-0.2) K/uL Immature Gran # (Auto) (0.01-0.20) K/uL Dohle Bodies Polychromasia Echinocytes PT (9.0-12.0) Seconds INR (0.9-1.1) APTT (21.0-31.0) Seconds PTT Ratio ABG pH (7.35-7.45) ABG pCO2 (35-46) mmHg ABG pO2 (80-95) mmHg ABG HCO3 (19-24) mmol/L ABG O2 Saturation (90-95) % ABG Base Excess (-9-1.8) mEq/L Donnell Test (Pos) Oxygen Given POC Sodium (135-144) mmol/L Sodium (136-145) mmol/L POC Potassium (3.3-5.0) mmol/L Potassium (3.5-5.1) mmol/L POC Chloride (101-112) mmol/L Chloride (98-107) mmol/L Carbon Dioxide (21-32) mmol/L POC Total CO2 (24-31) mmol/L Anion Gap (3-11) POC Anion Gap (16-25) mmol/L POC BUN (7-18) mg/dl BUN (6-23) mg/dl Creatinine (0.6-1.4) mg/dl POC Creatinine (0.6-1.3) mg/dl Est Cr Clr Drug Dosing ml/min Est GFR ( Amer) ml/min Est GFR (Non-Af Amer) ml/min BUN/Creatinine Ratio (10-20) Glucose (70-99(Fasting)) mg/dl POC Glucose (70-99) mg/dl POC Glucose (other) (70-99) mg/dl Lactate (0.4-2.0) mmol/L Calcium (8.6-10.3) mg/dl POC Ioniz Calcium Misha (1.12-1.32) mmol/l Magnesium (1.7-2.4) mg/dl Total Bilirubin (0.2-1.0) mg/dl Direct Bilirubin AST (13-39) U/L ALT (7-52) U/L Alkaline Phosphatase (34-104) U/L Lactate Dehydrogenase 405 H (86-244) U/L Total Creatine Kinase (30-223) U/L Troponin I High Sens (0-20) pg/ml Total Protein (6.0-8.3) gm/dl Albumin (3.4-5.0) gm/dl Triglycerides (0-150) mg/dl Lipase (11-82) U/L Procalcitonin (0-0.5) ng/ml TSH (0.300-4.500) uIu/ml Free T4 (0.61-1.60) ng/dl Urine Color Urine Appearance (Clear) Urine pH (4.5-7.5) Ur Specific [place] (1.000-1.030) Urine Protein (Negative) Urine Glucose (UA) (Negative) Urine Ketones (Negative) Urine Blood (Negative) Urine Nitrite (Negative) Urine Bilirubin (Negative) Urine Urobilinogen (Negative) Ur Leukocyte Esterase (Negative) Urine WBC (Auto) (0-5) /hpf Urine RBC (Auto) (0-4) /hpf U Hyaline Cast (Auto) (0-5) /lpf U Epithel Cells (Auto) (0-5) /lpf Urine Bacteria (Auto) (Negative) Salicylates (3.0-30) mg/dl Urine Opiates Screen (Neg) Ur Methadone, Qual (Neg) Acetaminophen (10-30) ug/ml Urine Barbiturates (Neg) Ur Phencyclidine (PCP) (Neg) U Amphetamin/Meth Scrn (Neg) MDMA (Ecstasy) Screen (Neg) U Benzodiazepines Scrn (Neg) Ur Cocaine Metabolite (Neg) U Marijuana (THC) Screen (Neg) Ethyl Alcohol mg/dL (<10.0) mg/dl Anaplasma Smear See Comment Babesia Smear See Comment Lyme Disease IgG Ab Negative (Negative) Lyme Disease IgM Ab Positive A (Negative) SARS-CoV-2, RNA, NAAT (NEGATIVE) 03/31/23 03/31/23 Range/Units 19:37 19:37 WBC (4.8-10.8) K/ul RBC (4.70-6.10) M/uL Hgb (14.0-18.0) g/dl POC Hgb (14.0-18.0) g/dl Hct (42.0-52.0) % POC Hct (42-52) % MCV (80.0-100.0) fL MCH (25.0-34.0) pg MCHC (32.0-36.0) g/dL RDW Std Deviation (36.4-46.3) fL RDW Coeff of Dinorah (11.5-14.5) % Plt Count (130-400) K/uL MPV (9.4-12.4) fL Immature Gran % (Auto) % Neut % (Auto) % Lymph % (Auto) % Nicholas % (Auto) % Eos % (Auto) % Baso % (Auto) % Neut # (Auto) (1.40-6.50) K/uL Lymph # (Auto) (1.2-3.4) K/uL Nicholas # (Auto) (0.11-0.59) K/uL Eos # (Auto) (0-0.50) K/uL Baso # (Auto) (0-0.2) K/uL Immature Gran # (Auto) (0.01-0.20) K/uL Dohle Bodies Polychromasia Echinocytes PT (9.0-12.0) Seconds INR (0.9-1.1) APTT (21.0-31.0) Seconds PTT Ratio ABG pH (7.35-7.45) ABG pCO2 (35-46) mmHg ABG pO2 (80-95) mmHg ABG HCO3 (19-24) mmol/L ABG O2 Saturation (90-95) % ABG Base Excess (-9-1.8) mEq/L Donnell Test (Pos) Oxygen Given POC Sodium (135-144) mmol/L Sodium (136-145) mmol/L POC Potassium (3.3-5.0) mmol/L Potassium (3.5-5.1) mmol/L POC Chloride (101-112) mmol/L Chloride (98-107) mmol/L Carbon Dioxide (21-32) mmol/L POC Total CO2 (24-31) mmol/L Anion Gap (3-11) POC Anion Gap (16-25) mmol/L POC BUN (7-18) mg/dl BUN (6-23) mg/dl Creatinine (0.6-1.4) mg/dl POC Creatinine (0.6-1.3) mg/dl Est Cr Clr Drug Dosing ml/min Est GFR ( Amer) ml/min Est GFR (Non-Af Amer) ml/min BUN/Creatinine Ratio (10-20) Glucose (70-99(Fasting)) mg/dl POC Glucose (70-99) mg/dl POC Glucose (other) (70-99) mg/dl Lactate (0.4-2.0) mmol/L Calcium (8.6-10.3) mg/dl POC Ioniz Calcium Misha (1.12-1.32) mmol/l Magnesium (1.7-2.4) mg/dl Total Bilirubin (0.2-1.0) mg/dl Direct Bilirubin AST (13-39) U/L ALT (7-52) U/L Alkaline Phosphatase (34-104) U/L Lactate Dehydrogenase (86-244) U/L Total Creatine Kinase (30-223) U/L Troponin I High Sens (0-20) pg/ml Total Protein (6.0-8.3) gm/dl Albumin (3.4-5.0) gm/dl Triglycerides (0-150) mg/dl Lipase (11-82) U/L Procalcitonin (0-0.5) ng/ml TSH (0.300-4.500) uIu/ml Free T4 (0.61-1.60) ng/dl Urine Color Urine Appearance (Clear) Urine pH (4.5-7.5) Ur Specific [place] (1.000-1.030) Urine Protein (Negative) Urine Glucose (UA) (Negative) Urine Ketones (Negative) Urine Blood (Negative) Urine Nitrite (Negative) Urine Bilirubin (Negative) Urine Urobilinogen (Negative) Ur Leukocyte Esterase (Negative) Urine WBC (Auto) (0-5) /hpf Urine RBC (Auto) (0-4) /hpf U Hyaline Cast (Auto) (0-5) /lpf U Epithel Cells (Auto) (0-5) /lpf Urine Bacteria (Auto) (Negative) Salicylates < 3.0 L (3.0-30) mg/dl Urine Opiates Screen (Neg) Ur Methadone, Qual (Neg) Acetaminophen < 3 L (10-30) ug/ml Urine Barbiturates (Neg) Ur Phencyclidine (PCP) (Neg) U Amphetamin/Meth Scrn (Neg) MDMA (Ecstasy) Screen (Neg) U Benzodiazepines Scrn (Neg) Ur Cocaine Metabolite (Neg) U Marijuana (THC) Screen (Neg) Ethyl Alcohol mg/dL < 10.0 (<10.0) mg/dl Anaplasma Smear Babesia Smear Lyme Disease IgG Ab (Negative) Lyme Disease IgM Ab (Negative) SARS-CoV-2, RNA, NAAT (NEGATIVE) Administered Medications Heparin Sodium (Porcine) (Heparin Sod 5,000 Unit/0.5 Ml Vial) 5,000 units SQ Q12 [facility] Stop: 04/30/23 20:59 Last Admin: 03/31/23 22:06 Dose: 5,000 units Documented By: JIMMIE Insulin Human Regular 250 (units/ Sodium Chloride) 250 mls @ 8.8 mls/hr IV .Q24H [facility]; Protocol Stop: 04/30/23 19:14 Last Admin: 03/31/23 19:59 Dose: 8.8 units/hr, 8.8 mls/hr Documented By: DIO Co-signed By: ELLE Pantoprazole Sodium 40 mg/ (Syringe) 10 mls @ 5 mls/min IV DAILY@1100 [facility] Stop: 04/30/23 20:30 Last Admin: 03/31/23 21:58 Dose: 5 mls/min Documented By: JIMMIE Parenteral Electrolytes (Plasma-Lyte A Ph 7.4) 1,000 mls @ 150 mls/hr IV .Q6H40M [facility] Stop: 04/30/23 20:44 Last Admin: 03/31/23 21:52 Dose: 150 mls/hr Documented By: JIMMIE Insulin Aspart (Insulin Aspart Per Unit Charge) 0 units SC ACHS [facility] Stop: 04/30/23 20:59 Last Admin: 03/31/23 22:07 Dose: Not Given Documented By: JIMMIE Magnesium Oxide (Magnesium Oxide 400 Mg Tab) 400 mg PO BID [place] Stop: 04/30/23 20:59 Last Admin: 03/31/23 22:08 Dose: 400 mg Documented By: BRA Discontinued Medications Albuterol (Albut/Ipratrop 3mg/0.5mg Neb 3 Ml Vial) 12 ml NEB ONE ONE; Protocol Stop: 03/31/23 19:11 Last Admin: 03/31/23 19:55 Dose: 12 ml Documented By: ANTONINA Piperacillin Sod/Tazobactam Sod (Zosyn) 4.5 gm in 120 mls @ 240 mls/hr IV NOW ONE Stop: 03/31/23 17:12 Last Infusion: 03/31/23 18:08 Dose: 0 mls/hr Documented By: Admin: 03/31/23 17:08 Dose: 240 mls/hr Documented By: DIO Calcium Chloride 1,000 mg/ (Dextrose) 60 mls @ 240 mls/hr IV NOW STA Stop: 03/31/23 17:09 Last Infusion: 03/31/23 17:50 Dose: 0 mls/hr Documented By: Admin: 03/31/23 17:35 Dose: 240 mls/hr Documented By: ARS Sodium Chloride (Nss 1000ml) 1,000 mls @ 999 mls/hr IV .Q1H1M ONE Stop: 03/31/23 17:55 Last Infusion: 03/31/23 18:09 Dose: 0 mls/hr Documented By: Admin: 03/31/23 17:07 Dose: 999 mls/hr Documented By: BEZ Sodium Chloride (Nss 1000ml) 1,000 mls @ 999 mls/hr IV .Q1H1M ONE Stop: 03/31/23 18:45 Last Infusion: 03/31/23 19:12 Dose: 0 mls/hr Documented By: Admin: 03/31/23 18:06 Dose: 999 mls/hr Documented By: DIO Lactated Ringer's (Lr) 500 mls @ 999 mls/hr IV .Q31M ONE Stop: 03/31/23 19:38 Last Admin: 03/31/23 19:25 Dose: 999 mls/hr Documented By: RED Doxycycline Hyclate 100 mg/ (Dextrose) 110 mls @ 50 mls/hr IV NOW ONE Stop: 03/31/23 22:11 Last Admin: 03/31/23 19:59 Dose: 50 mls/hr Documented By: DIO Insulin Human Regular (Novolin-R Insulin Per Unit Charge) 10 units IV NOW STA Stop: 03/31/23 16:56 Last Admin: 03/31/23 17:08 Dose: 10 units Documented By: DIO Co-signed By: MARLEY Chapman (Stat Insulin Drip) 1 each N/A NOW STA Stop: 03/31/23 19:04 Last Admin: 03/31/23 20:04 Dose: 1 each Documented By: DIO Chapman (Dka Goal Range 150-250 Mg/Dl) 1 each N/A ONE ONE Stop: 03/31/23 19:04 Last Admin: 03/31/23 20:04 Dose: 1 each Documented By: DIO Imaging Data Attestation: I personally reviewed and interpreted this imaging study as follows: My Impression: 1 view chest x-ray was obtained in the emergency department. My interpretation is no free air, no definite infiltrate, final report below Radiologist's Impression: Chest X-Ray 03/31/23 16:40 SINGLE VIEW CHEST CLINICAL HISTORY: Sepsis. FINDINGS: An AP, portable, upright chest radiograph is compared to study dated 07/31/2022 and correlated with chest CT dated 04/04/2022. The heart is enlarged noting atherosclerotic calcification of the thoracic aorta. The pulmonary vasculature is noncongested. There is chronic elevation of the right hemidiaphragm with bibasilar scarring/atelectasis. No airspace consolidation or large pleural effusion is identified. No pneumothorax is seen. The skeletal structures are osteopenic. The bony thorax is grossly intact. Surgical clips are noted in the left axilla. IMPRESSION: Cardiomegaly with no acute cardiopulmonary abnormality identified. ACT 112: Negative or not required by law. Electronically signed by: Stephen Devlin M.D. 03/31/2023 5:36 PM Abdomen/Pelvis CT 03/31/23 17:45 CT SCAN OF THE ABDOMEN AND PELVIS WITHOUT IV CONTRAST CLINICAL HISTORY: Sepsis. Change in mental status. COMPARISON STUDY: Abdominal CT dated 07/29/2022. TECHNIQUE: CT scan of the abdomen and pelvis is performed from the lung bases to the proximal femora. Images are reviewed in the axial, sagittal, and coronal planes. IV contrast was not administered for this examination as per the referring clinician. Note that the examination was performed and significantly suboptimal fashion without oral and IV contrast. The examination is degraded by motion artifact, as well as by streak artifact from the arms which could not be elevated above the abdomen. A dose lowering technique was utilized adhering to the principles of ALARA. CT DOSE: 1703.59 mGy.cm FINDINGS: Lung bases: The heart is enlarged and without pericardial effusion. The coronary arteries are densely calcified. Evaluation of the lung bases is degraded by motion artifact. No airspace consolidation or pleural effusion is identified. A 3 mm pleural-based nodule in the right middle lobe on image #15 is unchanged. There is a small to moderate hiatal hernia. Gynecomastia is noted. Liver: Evaluation of the liver is compromised by streak artifact. The unenhanced liver is appears normal in size, contour, and attenuation. There is no intrahepatic biliary ductal dilatation. Gallbladder: Unremarkable. Spleen: Normal in size and attenuation. Pancreas: The unenhanced pancreas appears edematous. There is peripancreatic inflammation and fluid, and the appearance is typical for acute pancreatitis. No organized peripancreatic fluid collection is identified. Adrenal glands: Unremarkable. Kidneys: The unenhanced kidneys demonstrate mild cortical atrophy and are without hydronephrosis. There are no renal calculi identified. A 2.8 cm cyst arises from the left lower pole. Abdominal vasculature: There is advanced atherosclerotic calcification and ectasia of the abdominal aorta. 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 Bowel: There is mild colonic diverticulosis without CT evidence of acute diverticulitis. Moderate fecal attention is seen throughout the colon. No bowel obstruction is identified. The appendix is well-visualized and normal. Peritoneum: No discrete peritoneal free air is seen. There is a small volume of abdominopelvic ascites. There is a large fat-containing umbilical hernia. Lymphadenopathy: None. Pelvic viscera: The prostate gland is markedly enlarged and heterogeneous. The bladder is distended, and the wall is thickened/trabeculated indicating chronic outlet obstruction. There is a large fat-containing left inguinal hernia. There is evidence of previous right inguinal herniorrhaphy. Skeletal structures: The skeletal structures are osteopenic. Moderate lumbosacral spondylosis is observed. No lytic or blastic lesions are seen. There are chronic/healed right-sided rib fractures. IMPRESSION: 1. Suboptimal examination without oral and IV contrast. There is also streak and motion artifact. 2. Findings are typical for acute pancreatitis. Correlate with clinical and laboratory findings. 3. Small volume of abdominopelvic ascites. 4. Cardiomegaly with advanced coronary artery atherosclerosis. 5. Large fat-containing left inguinal hernia. 6. Marked prostatomegaly with evidence of chronic bladder outlet obstruction. 7. 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 8. Additional findings as above. ACT 112: Negative or not required by law. Electronically signed by: Stephen Devlin M.D. 03/31/2023 6:[address] 03/31/23 17:45 CT SCAN OF THE BRAIN WITHOUT IV CONTRAST CLINICAL HISTORY: Change in mental status. Sepsis. COMPARISON STUDY: CT of the brain dated 07/29/2022 TECHNIQUE: Unenhanced axial CT scan of the brain is performed from the vertex to the skull base. A dose lowering technique was utilized adhering to the principles of ALARA. FINDINGS: Brain parenchyma: There is age-related involutional change noting mild subcortical and periventricular microangiopathic disease. There is no hemorrhage, mass effect, or evidence of acute territorial ischemia by CT criteria. 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 There is a chronic lacunar infarct in the left thalamus. Garcia-white matter differentiation is preserved. No extra-axial fluid collection is seen. Ventricles, sulci, cisterns: Prominent secondary to involutional change. Intracranial vasculature: There is atherosclerotic calcification of the [place] carotid and vertebral arteries. Calvarium: Unremarkable. Sinuses and mastoids: The visualized paranasal sinuses are clear. The mastoid air cells are well pneumatized. Orbits: The bony orbits are grossly intact. IMPRESSION: There is no hemorrhage, mass effect, or evidence of acute territorial ischemia by CT criteria. ACT 112: Negative or not required by law. Electronically signed by: Stephen Devlin M.D. 03/31/2023 6:29 PM Discharge Plan Visit Data Chief Complaint: Weakness Stated Complaint: WEAKNESS, SOB, HYPERGLYCEMIA ED Provider: Rome Corbett Discharge Problem: DKA (diabetic ketoacidosis), Acute pancreatitis, GUILLERMINA (acute kidney injury), Acute hyperkalemia, Elevated LFTs, Hypoxia, Metabolic acidosis Patient Disposition: Admitted As Inpatient Discharge Instructions Interventions: ED Discharge Assessment Last Done: 03/31/23 20:28 DKA (diabetic ketoacidosis) Qualifiers: Diabetes mellitus type: type 1 Diabetes mellitus complication detail: with coma Qualified Code(s): E10.11 - Type 1 diabetes mellitus with ketoacidosis with coma Acute pancreatitis Qualifiers: Pancreatitis type: unspecified pancreatitis type Acute pancreatitis complication: unspecified Qualified Code(s): K85.90 - Acute pancreatitis without necrosis or infection, unspecified
[2023-03-31] MEDS ORDERED: SODIUM CHLORIDE 0.9% 1000ML 1,000 ML IV ONE ×2 (16:55→17:45)
[2023-03-31] MEDS ORDERED: CALCIUM CHLORIDE 10% 1,000 MG in DEXTROSE 5% 50 ML IV STA (16:55)
[2023-03-31] MEDS ORDERED: NovoLIN-R INSULIN PER UNIT CHARGE IV STA (16:55)
[2023-03-31 17:06] LABS: iSTAT Creatinine 2.2 mg/dl (0.6-1.3); iSTAT Hemoglobin 17.7 g/dl (14.0-18.0); iSTAT Ionized Calcium 1.06 mmol/l (1.12-1.32); iSTAT Potassium 7.2 mmol/L (3.3-5.0)
[2023-03-31 17:23] LABS: Hematocrit (blood only) 53.1 % (42.0-52.0); Hemoglobin 17.5 g/dl (14.0-18.0); Mean Corpuscular Hemoglobin 30.9 pg (25.0-34.0); Mean Corpuscular Volume 93.7 fL (80.0-100.0); Mean Platelet Volume 10.7 fL (9.4-12.4); Platelet Count 210 K/uL (130-400); RDW Coefficient of Variation 15.7 % (11.5-14.5); RDW Standard Deviation 53.1 fL (36.4-46.3); Red Blood Count 5.67 M/uL (4.70-6.10); White Blood Count 18.45 K/ul (4.8-10.8)
--- NOTE | 2023-03-31 17:38 | XRay Report ---
SINGLE VIEW CHEST CLINICAL HISTORY: Sepsis. FINDINGS: An AP, portable, upright chest radiograph is compared to study dated 07/31/2022 and correlate d with chest CT dated 04/04/2022. The heart is enlarged noting atherosclerotic calcification of the tho racic aorta. The pulmonary vasculature is noncongested. There is chronic elevation of the right hemid iaphragm with bibasilar scarring/atelectasis. No airspace consolidation or large pleural effusion is identified. No pneumothorax is seen. The skeletal structures are osteopenic. The bony thorax is gross ly intact. Surgical clips are noted in the left axilla. IMPRESSION: Cardiomegaly with no acute cardiopulmonary abnormality identified. ACT 112: Negative or not required by law. Electronically signed by: Stephen Devlin M.D. 03/31/2023 5:36 PM
[2023-03-31 17:41] LABS: Basophils # (auto) 0.03 K/uL (0-0.2); Basophils % (auto) 0.2 %; Dohle Bodies 1+; Echinocytes 2+; Immature Granulocytes # (auto) 0.08 K/uL (0.01-0.20); Immature Granulocytes % (auto) 0.4 %; Lymphocytes # (auto) 0.57 K/uL (1.2-3.4); Lymphocytes % (auto) 3.1 %; Monocytes # (auto) 1.05 K/uL (0.11-0.59); Monocytes % (auto) 5.7 %; Neutrophils # (auto) 16.72 K/uL (1.40-6.50); Neutrophils % (auto) 90.6 %; Polychromasia 1+
[2023-03-31 17:50] LABS: HCO3 ABG 8 mmol/L (19-24); Oxygen Saturation ABG 91.1 % (90-95); PCO2 ABG 19 mmHg (35-46); PO2 ABG 65 mmHg (80-95); pH ABG 7.23 (7.35-7.45)
[2023-03-31 17:53] LABS: INR 1.2 (0.9-1.1); Partial Thromboplastin Ratio 0.9; Partial Thromboplastin Time 26.2 Seconds (21.0-31.0)
[2023-03-31 18:12] LABS: Alanine Aminotransferase 721 U/L (7-52); Albumin Level 4.1 gm/dl (3.4-5.0); Alkaline Phosphatase 142 U/L (34-104); Anion Gap 24 (3-11); Aspartate Aminotransferase 319 U/L (13-39); BUN Creatinine Ratio 17.9 (10-20); Bilirubin,Total 6.1 mg/dl (0.2-1.0); Blood Urea Nitrogen 42 mg/dl (6-23); Calcium 9.1 mg/dl (8.6-10.3); Carbon Dioxide 11 mmol/L (21-32); Chloride 98 mmol/L (98-107); Creatinine Clr Calc Pharmacy 32.1 ml/min; Est GFR (African American) 30.9 ml/min; Est GFR (Non-African American) 26.6 ml/min; Glucose 576 mg/dl (70-99(Fasting)); Magnesium 2.1 mg/dl (1.7-2.4); Potassium 6.9 mmol/L (3.5-5.1); Sodium 133 mmol/L (136-145); Total Protein 6.9 gm/dl (6.0-8.3); Troponin I High Sensitivity 29.8 pg/ml (0-20)
--- NOTE | 2023-03-31 18:30 | CT Scan Report ---
CT SCAN OF THE BRAIN WITHOUT IV CONTRAST CLINICAL HISTORY: Change in mental status. Sepsis. COMPARISON STUDY: CT of the brain dated 07/29/2022 TECHNIQUE: Unenhanced axial CT scan of the brain is performed from the vertex to the skull base. A do se lowering technique was utilized adhering to the principles of ALARA. FINDINGS: Brain parenchyma: There is age-related involutional change noting mild subcortical and periventricula r microangiopathic disease. There is no hemorrhage, mass effect, or evidence of acute territorial isc hemia by CT criteria. 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 There is a chroni c lacunar infarct in the left thalamus. Garcia-white matter differentiation is preserved. No extra-axia l fluid collection is seen. Ventricles, sulci, cisterns: Prominent secondary to involutional change. Intracranial vasculature: There is atherosclerotic calcification of the cavernous carotid and vertebr al arteries. Calvarium: Unremarkable. Sinuses and mastoids: The visualized paranasal sinuses are clear. The mastoid air cells are well pneu matized. Orbits: The bony orbits are grossly intact. IMPRESSION: There is no hemorrhage, mass effect, or evidence of acute territorial ischemia by CT anival campbell. ACT 112: Negative or not required by law. Electronically signed by: Stephen Devlin M.D. 03/31/2023 6:29 PM
--- NOTE | 2023-03-31 18:52 | CT Scan Report ---
CT SCAN OF THE ABDOMEN AND PELVIS WITHOUT IV CONTRAST CLINICAL HISTORY: Sepsis. Change in mental status. COMPARISON STUDY: Abdominal CT dated 07/29/2022. TECHNIQUE: CT scan of the abdomen and pelvis is performed from the lung bases to the proximal femora. Images are reviewed in the axial, sagittal, and coronal planes. IV contrast was not administered for this examination as per the referring clinician. Note that the examination was performed and signifi cantly suboptimal fashion without oral and IV contrast. The examination is degraded by motion artifac t, as well as by streak artifact from the arms which could not be elevated above the abdomen. A dose lowering technique was utilized adhering to the principles of ALARA. CT DOSE: 1703.59 mGy.cm FINDINGS: Lung bases: The heart is enlarged and without pericardial effusion. The coronary arteries are densely calcified. Evaluation of the lung bases is degraded by motion artifact. No airspace consolidation or pleural effusion is identified. A 3 mm pleural-based nodule in the right middle lobe on image #15 is unchanged. There is a small to moderate hiatal hernia. Gynecomastia is noted. Liver: Evaluation of the liver is compromised by streak artifact. The unenhanced liver is appears nor mal in size, contour, and attenuation. There is no intrahepatic biliary ductal dilatation. Gallbladder: Unremarkable. Spleen: Normal in size and attenuation. Pancreas: The unenhanced pancreas appears edematous. There is peripancreatic inflammation and fluid, and the appearance is typical for acute pancreatitis. No organized peripancreatic fluid collection is identified. Adrenal glands: Unremarkable. Kidneys: The unenhanced kidneys demonstrate mild cortical atrophy and are without hydronephrosis. The re are no renal calculi identified. A 2.8 cm cyst arises from the left lower pole. Abdominal vasculature: There is advanced atherosclerotic calcification and ectasia of the abdominal a juan [place]. 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 There is aneurysmal dilat ation of the left common iliac artery which measures up to 2.7 cm. Bowel: There is mild colonic diverticulosis without CT evidence of acute diverticulitis. Moderate fec al attention is seen throughout the colon. No bowel obstruction is identified. The appendix is well- visualized and normal. Peritoneum: No discrete peritoneal free air is seen. There is a small volume of abdominopelvic ascite s. There is a large fat-containing umbilical hernia. Lymphadenopathy: None. Pelvic viscera: The prostate gland is markedly enlarged and heterogeneous. The bladder is distended, and the wall is thickened/trabeculated indicating chronic outlet obstruction. There is a large fat-co ntaining left inguinal hernia. There is evidence of previous right inguinal herniorrhaphy. Skeletal structures: The skeletal structures are osteopenic. Moderate lumbosacral spondylosis is obse rved. No lytic or blastic lesions are seen. There are chronic/healed right-sided rib fractures. IMPRESSION: 1. Suboptimal examination without oral and IV contrast. There is also streak and motion artifact. 2. Findings are typical for acute pancreatitis. Correlate with clinical and laboratory findings. 3. Small volume of abdominopelvic ascites. 4. Cardiomegaly with advanced coronary artery atherosclerosis. 5. Large fat-containing left inguinal hernia. 6. Marked prostatomegaly with evidence of chronic bladder outlet obstruction. 7. 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 8. Additional findings as above. ACT 112: Negative or not required by law. Electronically signed by: Stephen Devlin M.D. 03/31/2023 6:50 PM
[2023-03-31] MEDS ORDERED: STAT INSULIN DRIP STA (19:03)
[2023-03-31] MEDS ORDERED: DKA GOAL RANGE 150-250 mg/dl ONE (19:03)
[2023-03-31] MEDS ORDERED: DEXTROSE 50% 50 ML SYRINGE IV PRN (19:03)
[2023-03-31] MEDS ORDERED: CARBOHYDRATES FOR HYPOGLYCEMIA PO PRN (19:03)
[2023-03-31] MEDS ORDERED: GLUCAGON FOR INJ 1 MG VIAL SQ PRN (19:03)
[2023-03-31] MEDS ORDERED: GLUCOSE 10 TAB/TUBE PO PRN (19:03)
[2023-03-31] MEDS ORDERED: GLUCOSE 40% GEL 15 GM TUBE PO PRN (19:03)
[2023-03-31] MEDS ORDERED: SODIUM CHLORIDE 0.9% 1000ML 500 ML IV ONE (19:04)
[2023-03-31] MEDS ORDERED: LACTATED RINGER'S 500 ML IV ONE (19:08)
[2023-03-31] MEDS ORDERED: ALBUT/IPRATROP 3MG/0.5MG NEB 3 ML VIAL NEB ONE (19:10)
--- NOTE | 2023-03-31 19:13 | History & Physical Report ---
Date of Service March 31, 2023 Assessment & Plan (1) Acute pancreatitis: Plan: Severe pancreatitis regardless but LDH pending to complete scoring [place]'s criteria: 4-5, severe pancreatitis (consider ICU admission) [place] score: 4-5, high risk for severe pancreatitis No significant alcohol history Triglyceride level pending No CBD dilatation on CT, will get US liver and portal vein doppler Given severity of pancreatitis discussed with towboat operator (Luis Felipe WERNER) and patient will be admitted to ICU for ongoing care NSS 2L bolus given by ER, additional 500ml LR bolus now, will defer further IV fluids to ICU team (2) SIRS (systemic inflammatory response syndrome): Plan: Elevation in LFTs out of proportion to GUILLERMINA, not explained by pancreatitis without CBD dilatation on CT is concerning for a primary liver infection not just acute pancreatitis Blood cultures taken - empiric Zosyn given in ER, no specific source to continue this but will defer to ICU team given highly elevated procalcitonin and WBC although this can be alternatively be explained by severe pancreatitis. Generalized abdominal tenderness but doubtful spontaneous bacterial peritonitis given degree of ascites and this is amenable to paracentesis Lyme, anaplasmosis/babesiosis smear added, empiric doxycycline 100mg IV given, continue if smear positive, high suspicion of anaplasmosis given lack of alternative explanation for his overall clinical picture Recent melanoma surgery on his back although this area appears non-cellulitic Urine drug screen pending (3) Acute hepatitis: Plan: No previous liver problems known to patient or his daughters Hepatitis panel sent Acetaminophen level, alcohol level (family report he is not a heavy drinker) ?Anaplasmosis, smear pending Admission function unremarkable - INR 1.2, Plt 210 (4) High anion gap metabolic acidosis: Plan: Elevated lactic acid explains this without ketoacidosis and only 1+ ketones in urine do not suspect DKA Lactic acid unlikely to continue to respond to IV fluids give liver dysfunction Acetaminophen level, salicylate level, alcohol level pending (5) Hyperglycemia: Plan: ?secondary to acute pancreatitis Do not suspect DKA with only 1+ ketones in urine but agree with insulin IV drip with aim 150-250 initially Awaiting triglyceride level to determine if he needs constant IV insulin for this Consult pharmacy for ongoing glycemic control (6) Type 2 diabetes mellitus: Plan: Hemoglobin A1C 6.4 in September 2021, repeat with AM labs Holding metformin (7) Acute hyperkalemia: Plan: Calcium chloride 1g IV, Insulin 10 units IV in the ER Suspect secondary to GUILLERMINA and lisinopril use Stop lisinopril Continue to monitor as should come down with insulin IV drip Repeat BMP pending (8) GUILLERMINA (acute kidney injury): Plan: Suspect pre-renal, likely to improve with IV fluids alone (9) Acute respiratory failure with hypoxia: Plan: Requiring 15LPM O2 non-rebreather when he came into the ER BiPAP placed due to work of breathing, suspect due to metabolic acidosis and appropriate tachypnea Will defer ongoing management to ICU team to maintain O2 sats > 90% Suspect due to overall illness above rather than acute cardiopulmonary abnormality but if not resolving consider CT for PE (10) Malignant melanoma: Plan: History of this. Reportedly had melanoma removed on back 4 days ago. Site appears non cellulitic (11) Esophageal dysphagia: Plan: Switch oral pantoprazole to IV 40mg daily (12) HTN (hypertension): Plan: Holding lisinopril with current illness, hypotension and hyperkalemia (13) History of CVA (cerebrovascular accident): Plan: Presumably this is the reason for his aspirin and Plavix (14) Hypothyroidism: Plan: Continue levothyroxine TSH pending Plan VTE Prophylaxis - heparin 5000 units SQ BID Diet - NPO Disposition - admit to ICU Admission and Anticipated Discharge Date Admission Date: March 31, 2023 History of Present Illness Chief Complaint: Shortness of breath, confusion Primary Care Provider: Juanita Morgan MD Payam Hill is a 72 year old male who presents to the ER with confusion, shortness of breath and generalized weakness. The patient is unable to give me any significant history, he tells me both he woke up feeling ok this morning but also he has been sick for 3-4 days but cannot elaborate on this. His cognition is usually normal per his daughter although noted poor historian on his past medical history problem list. His daughter at bedside reports seeing him yesterday and he was his normal self. Today when she went to check on him he was breathing fast, appeared general unwell, pale and confused. At the time he reported no pain but did say he was unable to eat or drink anything today. Therefore EMS were called. Current he denies any fever, chills, respiratory, gastrointestinal or urinary symptoms. On Monday he underwent melena removal on his back. On Monday he restarted on metformin as his daughter asked him whether he had been taking as his pill bottles were empty and he was unable to say who long he had been out for. Otherwise no recent changes to his medications. In the ER CT and labs are concerning for acute pancreatitis. The patient denies any abdominal pain, nausea, vomiting or change in bowels. However when I press on his abdomen he is significantly tender. Allergies Allergy/AdvReac Type Severity Reaction Status Date / Time No Known Allergies Allergy Verified 07/31/22 18:11 Home Medications Medication Instructions Recorded Confirmed Type clopidogrel 75 mg tablet 75 mg PO QAM 08/17/20 03/31/23 History fluoxetine 20 mg capsule 20 mg PO QAM 08/17/20 03/31/23 History lisinopril 10 mg tablet 10 mg PO QAM 08/17/20 03/31/23 History metformin 500 mg tablet 1,000 mg PO BID 08/17/20 03/31/23 History pantoprazole 40 mg tablet,delayed 40 mg PO DAILY #30 tabs 07/05/22 03/31/23 Rx release aspirin 81 mg tablet,delayed 81 mg PO DAILY 03/31/23 03/31/23 History release levothyroxine 88 mcg tablet 88 mcg PO DAILY 03/31/23 03/31/23 History (Synthroid) magnesium oxide 400 mg PO BID 03/31/23 03/31/23 History simvastatin 40 mg tablet 40 mg PO DAILY 03/31/23 03/31/23 History tamsulosin 0.4 mg capsule 0.4 mg PO DAILY 03/31/23 03/31/23 History Past Med/Surg History Medical History (Updated 04/01/23 @ 07:07 by Casey Bazan MD) Aneurysm pts daughter unsure what type, they are watching, follows w/ ange last visit 07/01/2022 Borderline hyperlipidemia Diabetes Enlarged prostate History of COVID-19 11/16- congestion; no hospitalization, no current issues HTN (hypertension) Hypothyroidism Malignant melanoma On anticoagulant therapy plavix Poor historian phone interview done by pts daughter, whom recently took over his medical/care information after of his Skin cancer 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 w/ immunotherapy completed tx over 1 year ago; follows w/ [facility] last visit 06/2022 TIA (transient ischemic attack) x2 last one 8-10yrs ago; has problems processing info and takes longer to process, but can answer questions appropriately, per daughter Surgical History S/P colonoscopy S/P hernia repair Social History Smoking Status: Unknown if ever smoked Tobacco Type: Smokeless Tobacco (Dip or Chew) Second Hand Exposure: No; Do You Dip or Chew Tobacco: Yes; Hx Alcohol Use: Yes Alcohol type: beer Alcohol Intake Frequency: 2-4 x/Month Hx Substance Use: No Preferred Language: Telugu Communication Ability: Effective Visual Impairment: No Limitations Hearing Ability: Normal Geophysics Scientist Required: No Beliefs That Will Affect Care: None marital status: Current Living Situation: Alone Current Living Situation Comment: dtr goes to drs appointments - he lives by himself current occupational status: retired Feels Safe at Home: Yes Safety Concerns: Feels Safe At This Time Assistive Devices: None Review of Systems Review of Systems: All systems reviewed & are unremarkable except as noted in HPI & below Physical Exam Constitutional: well developed and + acute distress (respiratory); + not well nourished Eyes: PERRL and EOM intact bilaterally; sclerae not anicteric Respiratory: + labored breathing, + uses accessory muscles and + tachypneic; expiratory phase not prolonged and no stridor Auscultation: lungs clear to auscultation bilaterally; breath sounds present, no diminished lung sounds, no crackles, no rales, no rhonchi and no wheezes Cardiovascular: Rate/Rhythm: regular rhythm and + tachycardic Heart Sounds: no murmur Vessels: no JVD Extremities: + abnormal capillary refill (prolonged in peripheries 5 seconds, normal central), no calf tenderness and no pedal edema Gastrointestinal (Abdomen): Inspection/Auscultation: abdomen normal to inspection and + abdomen distended Percussion/Palpation: + abdomen tender (generalized without rebound tenderness), + guarding and + abdomen rigid; + abdomen not soft Musculoskeletal: no cyanosis or clubbing, extremities motor strength 5/5 Skin: + jaundice and + mottling Bandage removed surgical scar on upper back without surrounding cellulitis or fluctuance Neurologic: moves all extremities, awake and + confused; no focal motor deficits Speech / Cognition: normal speech Motor/Sensory: no tremor, no pronator drift, no asterixis and no sensory deficit Cranial Nerves: PERRL, EOM intact bilaterally, normal facial strength, tongue midline, able to rotate head bilaterally, able to elevate shoulders bilaterally, no nystagmus and symmetric palate elevation Psychiatric: Orientation: alert and oriented to person; + not oriented to place and + not oriented to time Genitourinary: no CVA tenderness Results & Data Results & Data Vital Signs (Past 12 Hours) Vital Signs Temp Pulse Resp BP Pulse Ox O2 Del Method O2 Flow Rate 03/31/23 18:58 35.3 C L 95 H 35 H 121/87 92 BiPAP 03/31/23 18:21 92 H 33 H 115/83 90 03/31/23 18:27 92 H 31 H 90 03/31/23 18:00 77 36 H 111/76 93 Non-rebreather 15 03/31/23 17:45 81 44 H 93/66 L 90 Non-rebreather 15 03/31/23 17:30 84 45 H 94/70 L 88 L Non-rebreather 15 03/31/23 16:38 34.9 C L 89 35 H 107/80 88 L Non-rebreather 03/31/23 16:51 102 H FiO2 03/31/23 18:58 70 03/31/23 18:21 03/31/23 18:27 70 03/31/23 18:00 03/31/23 17:45 03/31/23 17:30 03/31/23 16:38 03/31/23 16:51 Laboratory Results Abnormal lab results 03/31/23 03/31/23 03/31/23 Range/Units 16:50 16:50 16:50 WBC 18.45 H (4.8-10.8) K/ul Hct 53.1 H (42.0-52.0) % RDW Std Deviation 53.1 H (36.4-46.3) fL RDW Coeff of Dinorah 15.7 H (11.5-14.5) % Neut # (Auto) 16.72 H (1.40-6.50) K/uL Lymph # (Auto) 0.57 L (1.2-3.4) K/uL Boundary # (Auto) 1.05 H (0.11-0.59) K/uL PT 13.0 H (9.0-12.0) Seconds INR 1.2 H (0.9-1.1) ABG pH (7.35-7.45) ABG pCO2 (35-46) mmHg ABG pO2 (80-95) mmHg ABG HCO3 (19-24) mmol/L ABG Base Excess (-9-1.8) mEq/L POC Sodium (135-144) mmol/L Sodium 133 L (136-145) mmol/L POC Potassium (3.3-5.0) mmol/L Potassium 6.9 H* (3.5-5.1) mmol/L Carbon Dioxide 11 L (21-32) mmol/L POC Total CO2 (24-31) mmol/L Anion Gap 24 H (3-11) POC BUN (7-18) mg/dl BUN 42 H (6-23) mg/dl Creatinine 2.35 H (0.6-1.4) mg/dl POC Creatinine (0.6-1.3) mg/dl Glucose 576 H* (70-99(Fasting)) mg/dl POC Glucose (70-99) mg/dl POC Glucose (other) (70-99) mg/dl Lactate (0.4-2.0) mmol/L POC Ioniz Calcium Misha (1.12-1.32) mmol/l Total Bilirubin 6.1 H (0.2-1.0) mg/dl AST 319 H (13-39) U/L ALT 721 H (7-52) U/L Alkaline Phosphatase 142 H (34-104) U/L Troponin I High Sens 29.8 H (0-20) pg/ml Lipase 2410 H (11-82) U/L Procalcitonin (0-0.5) ng/ml Urine Appearance (Clear) Urine Protein (Negative) Urine Glucose (UA) (Negative) Urine Ketones (Negative) Urine Bilirubin (Negative) Urine WBC (Auto) (0-5) /hpf Urine RBC (Auto) (0-4) /hpf U Hyaline Cast (Auto) (0-5) /lpf U Epithel Cells (Auto) (0-5) /lpf 03/31/23 03/31/23 03/31/23 Range/Units 16:50 16:54 17:20 WBC (4.8-10.8) K/ul Hct (42.0-52.0) % RDW Std Deviation (36.4-46.3) fL RDW Coeff of Dinorah (11.5-14.5) % Neut # (Auto) (1.40-6.50) K/uL Lymph # (Auto) (1.2-3.4) K/uL Boundary # (Auto) (0.11-0.59) K/uL PT (9.0-12.0) Seconds INR (0.9-1.1) ABG pH (7.35-7.45) ABG pCO2 (35-46) mmHg ABG pO2 (80-95) mmHg ABG HCO3 (19-24) mmol/L ABG Base Excess (-9-1.8) mEq/L POC Sodium 133 L (135-144) mmol/L Sodium (136-145) mmol/L POC Potassium 7.2 H* (3.3-5.0) mmol/L Potassium (3.5-5.1) mmol/L Carbon Dioxide (21-32) mmol/L POC Total CO2 13 L (24-31) mmol/L Anion Gap (3-11) POC BUN 49 H (7-18) mg/dl BUN (6-23) mg/dl Creatinine (0.6-1.4) mg/dl POC Creatinine 2.2 H (0.6-1.3) mg/dl Glucose (70-99(Fasting)) mg/dl POC Glucose (70-99) mg/dl POC Glucose (other) 571 H* (70-99) mg/dl Lactate 12.2 H* (0.4-2.0) mmol/L POC Ioniz Calcium Misha 1.06 L (1.12-1.32) mmol/l Total Bilirubin (0.2-1.0) mg/dl AST (13-39) U/L ALT (7-52) U/L Alkaline Phosphatase (34-104) U/L Troponin I High Sens (0-20) pg/ml Lipase (11-82) U/L Procalcitonin 25.05 H (0-0.5) ng/ml Urine Appearance (Clear) Urine Protein (Negative) Urine Glucose (UA) (Negative) Urine Ketones (Negative) Urine Bilirubin (Negative) Urine WBC (Auto) (0-5) /hpf Urine RBC (Auto) (0-4) /hpf U Hyaline Cast (Auto) (0-5) /lpf U Epithel Cells (Auto) (0-5) /lpf 03/31/23 03/31/23 03/31/23 Range/Units 17:24 18:58 18:58 WBC (4.8-10.8) K/ul Hct (42.0-52.0) % RDW Std Deviation (36.4-46.3) fL RDW Coeff of Dinorah (11.5-14.5) % Neut # (Auto) (1.40-6.50) K/uL Lymph # (Auto) (1.2-3.4) K/uL Boundary # (Auto) (0.11-0.59) K/uL PT (9.0-12.0) Seconds INR (0.9-1.1) ABG pH 7.23 L (7.35-7.45) ABG pCO2 19 L (35-46) mmHg ABG pO2 65 L (80-95) mmHg ABG HCO3 8 L (19-24) mmol/L ABG Base Excess -17.0 L (-9-1.8) mEq/L POC Sodium (135-144) mmol/L Sodium (136-145) mmol/L POC Potassium (3.3-5.0) mmol/L Potassium (3.5-5.1) mmol/L Carbon Dioxide (21-32) mmol/L POC Total CO2 (24-31) mmol/L Anion Gap (3-11) POC BUN (7-18) mg/dl BUN (6-23) mg/dl Creatinine (0.6-1.4) mg/dl POC Creatinine (0.6-1.3) mg/dl Glucose (70-99(Fasting)) mg/dl POC Glucose (70-99) mg/dl POC Glucose (other) (70-99) mg/dl Lactate 5.2 H* (0.4-2.0) mmol/L POC Ioniz Calcium Misha (1.12-1.32) mmol/l Total Bilirubin (0.2-1.0) mg/dl AST (13-39) U/L ALT (7-52) U/L Alkaline Phosphatase (34-104) U/L Troponin I High Sens (0-20) pg/ml Lipase (11-82) U/L Procalcitonin (0-0.5) ng/ml Urine Appearance Cloudy A (Clear) Urine Protein 1+ H (Negative) Urine Glucose (UA) 3+ H (Negative) Urine Ketones 1+ H (Negative) Urine Bilirubin 1+ H (Negative) Urine WBC (Auto) 5-10 H (0-5) /hpf Urine RBC (Auto) 5-10 H (0-4) /hpf U Hyaline Cast (Auto) 5-10 H (0-5) /lpf U Epithel Cells (Auto) 20-30 H (0-5) /lpf // Range/Units 19:05 WBC (4.8-10.8) K/ul Hct (42.0-52.0) % RDW Std Deviation (36.4-46.3) fL RDW Coeff of Dinorah (11.5-14.5) % Neut # (Auto) (1.40-6.50) K/uL Lymph # (Auto) (1.2-3.4) K/uL Boundary # (Auto) (0.11-0.59) K/uL PT (9.0-12.0) Seconds INR (0.9-1.1) ABG pH (7.35-7.45) ABG pCO2 (35-46) mmHg ABG pO2 (80-95) mmHg ABG HCO3 (19-24) mmol/L ABG Base Excess (-9-1.8) mEq/L POC Sodium (135-144) mmol/L Sodium (136-145) mmol/L POC Potassium (3.3-5.0) mmol/L Potassium (3.5-5.1) mmol/L Carbon Dioxide (21-32) mmol/L POC Total CO2 (24-31) mmol/L Anion Gap (3-11) POC BUN (7-18) mg/dl BUN (6-23) mg/dl Creatinine (0.6-1.4) mg/dl POC Creatinine (0.6-1.3) mg/dl Glucose (70-99(Fasting)) mg/dl POC Glucose 472 H* (70-99) mg/dl POC Glucose (other) (70-99) mg/dl Lactate (0.4-2.0) mmol/L POC Ioniz Calcium Misha (1.12-1.32) mmol/l Total Bilirubin (0.2-1.0) mg/dl AST (13-39) U/L ALT (7-52) U/L Alkaline Phosphatase (34-104) U/L Troponin I High Sens (0-20) pg/ml Lipase (11-82) U/L Procalcitonin (0-0.5) ng/ml Urine Appearance (Clear) Urine Protein (Negative) Urine Glucose (UA) (Negative) Urine Ketones (Negative) Urine Bilirubin (Negative) Urine WBC (Auto) (0-5) /hpf Urine RBC (Auto) (0-4) /hpf U Hyaline Cast (Auto) (0-5) /lpf U Epithel Cells (Auto) (0-5) /lpf Diagnostic Findings CT SCAN OF THE BRAIN WITHOUT IV CONTRAST CLINICAL HISTORY: Change in mental status. Sepsis. COMPARISON STUDY: CT of the brain dated 07/29/2022 TECHNIQUE: Unenhanced axial CT scan of the brain is performed from the vertex to the skull base. A dose lowering technique was utilized adhering to the principles of ALARA. FINDINGS: Brain parenchyma: There is age-related involutional change noting mild subcortical and periventricular microangiopathic disease. There is no hemorrhage, mass effect, or evidence of acute territorial ischemia by CT criteria. 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 There is a chronic lacunar infarct in the left thalamus. Garcia-white matter diffe rentiation is preserved. No extra-axial fluid collection is seen. Ventricles, sulci, cisterns: Prominent secondary to involutional change. Intracranial vasculature: There is atherosclerotic calcification of the cavernous carotid and vertebral arteries. Calvarium: Unremarkable. Sinuses and mastoids: The visualized paranasal sinuses are clear. The mastoid air cells are well pneumatized. Orbits: The bony orbits are grossly intact. IMPRESSION: There is no hemorrhage, mass effect, or evidence of acute territorial ischemia by CT criteria. SINGLE VIEW CHEST CLINICAL HISTORY: Sepsis. FINDINGS: An AP, portable, upright chest radiograph is compared to study dated 07/31/2022 and correlated with chest CT dated 04/04/2022. The heart is enlarged noting atherosclerotic calcification of the thoracic aorta. The pulmonary vasculature is noncongested. There is chronic elevation of the right hemidiaphragm with bibasilar scarring/atelectasis. No airspace consolidation or large pleural effusion is identified. No pneumothorax is seen. The skeletal structures are osteopenic. The bony thorax is grossly intact. Surgical clips are noted in the left axilla. IMPRESSION: Cardiomegaly with no acute cardiopulmonary abnormality identified. CT SCAN OF THE ABDOMEN AND PELVIS WITHOUT IV CONTRAST CLINICAL HISTORY: Sepsis. Change in mental status. COMPARISON STUDY: Abdominal CT dated 07/29/2022. TECHNIQUE: CT scan of the abdomen and pelvis is performed from the lung bases to the proximal femora. Images are reviewed in the axial, sagittal, and coronal planes. IV contrast was not administered for this examination as per the referring clinician. Note that the examination was performed and significantly suboptimal fashion without oral and IV contrast. The examination is degraded by motion artifact, as well as by streak artifact from the arms which could not be elevated above the abdomen. A dose lowering technique was utilized adhering to the principles of ALARA. CT DOSE: 1703.59 mGy.cm FINDINGS: Lung bases: The heart is enlarged and without pericardial effusion. The coronary arteries are densely calcified. Evaluation of the lung bases is degraded by motion artifact. No airspace consolidation or pleural effusion is identified. A 3 mm pleural-based nodule in the right middle lobe on image #15 is unchanged. There is a small to moderate hiatal hernia. Gynecomastia is noted. Liver: Evaluation of the liver is compromised by streak artifact. The unenhanced liver is appears normal in size, contour, and attenuation. There is no intrahepatic biliary ductal dilatation. Gallbladder: Unremarkable. Spleen: Normal in size and attenuation. Pancreas: The unenhanced pancreas appears edematous. There is peripancreatic inflammation and fluid, and the appearance is typical for acute pancreatitis. No organized peripancreatic fluid collection is identified. Adrenal glands: Unremarkable. Kidneys: The unenhanced kidneys demonstrate mild cortical atrophy and are without hydronephrosis. There are no renal calculi identified. A 2.8 cm cyst arises from the left lower pole. Abdominal vasculature: There is advanced atherosclerotic calcification and ec karel of the abdominal aorta. 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 Bowel: There is mild colonic diverticulosis without CT evidence of acute diverticulitis. Moderate fecal attention is seen throughout the colon. No bowel obstruction is identified. The appendix is well-visualized and normal. Peritoneum: No discrete peritoneal free air is seen. There is a small volume of abdominopelvic ascites. There is a large fat-containing umbilical hernia. Lymphadenopathy: None. Pelvic viscera: The prostate gland is markedly enlarged and heterogeneous. The bladder is distended, and the wall is thickened/trabeculated indicating chronic outlet obstruction. There is a large fat-containing left inguinal hernia. There is evidence of previous right inguinal herniorrhaphy. Skeletal structures: The skeletal structures are osteopenic. Moderate lumbosacral spondylosis is observed. No lytic or blastic lesions are seen. There are chronic/healed right-sided rib fractures. IMPRESSION: 1. Suboptimal examination without oral and IV contrast. There is also streak and motion artifact. 2. Findings are typical for acute pancreatitis. Correlate with clinical and laboratory findings. 3. Small volume of abdominopelvic ascites. 4. Cardiomegaly with advanced coronary artery atherosclerosis. 5. Large fat-containing left inguinal hernia. 6. Marked prostatomegaly with evidence of chronic bladder outlet obstruction. 7. 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 8. Additional findings as above. Medications Administered ER Medications Given: Zosyn 4.5g IV Calcium chloride 1g IV NSS 1L bolus Insulin 10 units IV NSS 1L bolus ECG Rate (beats per minute): 92 Rhythm: normal sinus Findings: + 1st degree AV block and + LAFB Comparison ECG Date: from (July 31, 2022) Change: the following changes noted (peaking of T waves, RI interval increased) Code Status & VTE Plan Code Status DNR in the event or a cardiac arrest but all other treatment wanted outside of a cardiac arrest VTE Prophylaxis Plan VTE Prophylaxis will be ordered: Yes Critical Care Time Critical Care Time: Yes Total Critical Care Time: 40 PG Care Time/CCT Total # of Minutes Spent Total Time Spent with Patient: Total time spent is greater than 50% in coordination of care (as documented) at patient's floor/unit and/or counseling patient: Critical Care Time: Yes Total Critical Care Time: 40 Coding Level of Care Code 62583 INT INP/OBS CARE 75MIN Diagnoses Acute pancreatitis K85.90 Acute pancreatitis complication: unspecified Pancreatitis type: unspecified pancreatitis type SIRS (systemic inflammatory response syndrome) R65.10 Acute hepatitis B17.9 High anion gap metabolic acidosis E87.29 Hyperglycemia R73.9 Type 2 diabetes mellitus E11.9 Acute hyperkalemia E87.5 GUILLERMINA (acute kidney injury) N17.9 Acute respiratory failure with hypoxia J96.01 Malignant melanoma C43.9 Esophageal dysphagia R13.19 HTN (hypertension) I10 History of CVA (cerebrovascular accident) Z86.73 Hypothyroidism E03.9 Additional Codes Critical Care Time - Critical Care Time: Yes ([id number]) (1) Acute pancreatitis Acute pancreatitis complication: unspecified Pancreatitis type: unspecified pancreatitis type Qualified Code(s): K85.90 - Acute pancreatitis without necrosis or infection, unspecified
[2023-03-31] MEDS ORDERED: INSULIN REGULAR 250 UNITS in SODIUM CHLORIDE 0.9% 247.5 ML IV SCH (19:15)
[2023-03-31 19:26] LABS: Appearance Urine Cloudy (Clear); Bacteria Urine Automated Negative (Negative); Blood Urine Negative (Negative); Color Urine Dark Yellow; Epithelial Cell Urine Auto 20-30 /lpf (0-5); Glucose Urine UA 3+ (Negative); Ketones Urine 1+ (Negative); Leukocyte Esterase Urine Negative (Negative); Nitrite Urine Negative (Negative); Protein Urine 1+ (Negative); Specific Gravity Urine 1.028 (1.000-1.030); Urobilinogen Urine Negative (Negative)
[2023-03-31 19:30] LABS: Bilirubin Urine 1+ (Negative)
[2023-03-31 19:40] LABS: Allen Test Pos (Pos)
[2023-03-31 19:44] LABS: Lipase 2410 U/L (11-82)
[2023-03-31 19:55] LABS: Thyroid Stimulating Hormone 0.192 uIu/ml (0.300-4.500)
[2023-03-31] MEDS ORDERED: DOXYCYCLINE HYCLATE 100 MG in DEXTROSE 5% 100 ML IV ONE (20:00)
[2023-03-31 20:28] LABS: T4 Free Thyroxine 1.06 ng/dl (0.61-1.60)
[2023-03-31] MEDS ORDERED: PHARMACY GLYCEMIC MGMT CONSULT PRN (20:31)
[2023-03-31] MEDS ORDERED: PANTOprazole 40 MG in SYRINGE 0 ML IV SCH (20:31)
[2023-03-31 20:32] LABS: Acetaminophen < 3 ug/ml (10-30); Salicylate < 3.0 mg/dl (3.0-30)
[2023-03-31 20:38] LABS: Potassium 5.2 mmol/L (3.5-5.1)
[2023-03-31 20:45] LABS: Bilirubin Direct 3.1 mg/dl (0-0.2); Calcium 10.2 mg/dl (8.6-10.3); Creatinine Clr Calc Pharmacy 36.8 ml/min; Est GFR (African American) 36.4 ml/min; Est GFR (Non-African American) 31.4 ml/min
[2023-03-31 20:51] LABS: Lyme Ab IgG w/WB Rflx Negative (Negative)
[2023-03-31 20:59] LABS: Lyme Ab IgM w/WB Rflx Positive (Negative)
[2023-03-31] MEDS ORDERED: ICU Protocol for HYPERglycemia SCH (21:00)
[2023-03-31 21:16] LABS: Amphetamines+Metham, Urine Neg (Neg); Barbiturates, Urine Neg (Neg); Benzodiazepine, Urine Neg (Neg); Cocaine, Urine Neg (Neg); MDMA (Ecstacy), Urine Neg (Neg); Methadone, Urine Neg (Neg); Opiate, Urine Neg (Neg); Phencyclidine, Urine Neg (Neg)
--- NOTE | 2023-03-31 21:16 | Critical Care Consultation ---
Date of Consultation March 31, 2023 Assessment & Plan (1) Acute pancreatitis: Reason Critically Ill: 72-year-old male presents to the ICU with multisystem organ dysfunction including acute pancreatitis, acute hepatitis, hypoxic respiratory failure, DKA, metabolic acidosis, and GUILLERMINA. Neuro - [facility] ICU: Negative Encephalopathyimproved. CT head without acute intracranial findings History of TIAcontinue ASA, Plavix Cardiac - Elevated troponinmild elevation of troponin likely demand ischemia in the setting of hypoxia with GUILLERMINA. No ST elevation on EKG. Continuous monitoring on telemetry. Currently hemodynamically stable HLDcontinue statin Respiratory - Acute hypoxic respiratory failurepatient temporarily on BiPAP, now weaned to nasal cannula. Chest x-ray showing cardiomegaly without cardiopulmonary congestion. No hypercapnia on ABG. -Hypoxia improving, expect this is related to aggressive fluid resuscitation in the setting of pancreatitis. May have underlying diastolic dysfunction and could consider TTE. We will hold off on diuresis -Suspicion for PE is low considering oxygenation is improving and without tachycardia or hypotension. May consider CTA chest when renal function improves. -Continue with supplemental oxygen and wean as tolerated. Patient is high risk of elevating yards with pancreatitis -Continuous monitoring on pulse ox GI - Acute pancreatitisRanson score of 5 on admission consistent with severe pancreatitis and admitted to ICU -CT abdomen and pelvis consistent with acute pancreatitis without organized peripancreatic fluid collection and normal liver without ductal dilation -Received 2.5 L crystalloid bolus in the ED, continue with aggressive IV fluid resuscitation -Initial lipase of 2410, trend -We will continue with empiric antibiotics for now while infectious work-up is pending -GI consult Acute hepatitispatient with elevated liver enzymes. CT abdomen pelvis with normal liver without ductal dilation -Liver ultrasound with no evidence of gallstones, showing heterogeneous liver with trace perihepatic ascites -Portal vein US with patent hepatic and portal veins with normal directional flow -No significant alcohol history -Hepatitis panel pending -Acetaminophen and salicylate levels negative -Continue to trend LFTs -GI consulted RENAL/LYTES - AKIinitial creatinine 2.35 and BUN of 42. Improving following repeat BMP after fluid resuscitation. Suspect this is most likely prerenal in the setting of acute pancreatitis -Patient initially hyperkalemic with potassium of 7.2. Most likely related to severe acidosis which is now improving and repeat BMP shows potassium of 5.2. Currently responsive to medical treatment and no need for emergent dialysis. -Continue with fluid resuscitation with Plasma-Lyte at 150 mL/h -Continue to trend BMPs -Avoid nephrotoxins and renally adjust medications - BPHcontinue tamsulosin. Hernandez for strict I's and O's ENDO - DKApatient initially hyperglycemic with 1+ ketones in UA with evidence of mild DKA likely contributing to the patient's acidosis -Improved following fluid resuscitation and insulin drip -Hemoglobin A1c pending -We will transition to sliding scale once glucose is stable and acidosis has improved HEME - H&H stable, monitor routine CBC ID - Sepsis?Patient with elevated procalcitonin and lactate, leukocytosis of 18,000. Currently afebrile -No clear source of infection at this time and patient is currently undergoing treatment for severe pancreatitis -Blood cultures pending -Tick panel pending. Patient did receive 1 dose doxycycline in the ED -Continue with empiric Zosyn for now LINES/IV ACCESS - Peripheral IVs DVT PROPHYLAXIS - SCDs, subcu heparin I have personally spent 65 minutes of critical care time in the direct management of this patient. This is a life/limb threatening event. This includes time spent evaluating patient, direct bedside care, chart review, placing orders, interpretation of diagnostic studies, discussion with consultants, patient, and family members, as well as other required patient management activities. This time is exclusive of all separately billable procedures, and teaching time and separate from and in addition to any other critical care service time. Thank you for allowing us to participate in the care of this patient. Please refer to my attending physician's documentation for any further recommendations. (2) Acute hepatitis: (3) Acute respiratory failure with hypoxia: (4) Type 2 diabetes mellitus: (5) High anion gap metabolic acidosis: (6) SIRS (systemic inflammatory response syndrome): (7) DKA (diabetic ketoacidosis): (8) GUILLERMINA (acute kidney injury): (9) Acute hyperkalemia: History of Present Illness Attending Physician: Casey Bazan MD History of Present Illness Patient is a 72-year-old male with a past medical history of DM type II, HLD, hypothyroidism, HTN, GERD, BPH, TIA, melanoma who presented to the emergency department earlier today after having difficulty breathing. Family had called 911 after the patient was found to be in the basement with difficulty breathing and was found to be somewhat confused. In the emergency department patient was found to be tachypneic with a partially compensated metabolic acidosis, GUILLERMINA, elevated LFTs and a lipase, and lactic acidosis of 12. Patient was initially placed on BiPAP in the emergency department, and was given 2.5 L IV fluid bolus. He was also found to be hyperkalemic with potassium 7.2 which was treated with calcium, insulin, and DuoNeb. He is also noted to be hyper glycemic with lab work suspicious for a mild DKA, and he was started on insulin drip. He was also started on broad-spectrum antibiotics. CT abdomen and pelvis concerning for acute pancreatitis without organized peripancreatic fluid collection, and normal liver without intrahepatic biliary ductal dilation. Liver ultrasound without gallstones and with trace perihepatic ascites and portal renal ultrasound showed patent portal veins with normal directional flow. Patient is now admitted to ICU for further management. On evaluation, the patient is alert and oriented without acute distress. He is mildly tachypneic but no use of accessory muscles. He complains of mild shortness of breath and 2-day onset of general fatigue which was more associated with activity. Patient denies recent illness, fever, headache, dizziness, sore throat, congestion, cough, chest pain or palpitations, nausea vomiting or diarrhea, abdominal pain, changes in urinary stream or frequency, changes in gait, or swelling in hands or feet. Though he denies abdominal pain at rest, it is noted that his abdomen is very distended with generalized tenderness and guarding with light palpation. Patient denies any significant history of alcohol or ingestion of Tylenol, aspirin, or ibuprofen. He does have a history of Lyme disease and was given 1 dose of doxycycline for concern of anaplasmosis. Tick panel is pending. Allergies Allergy/AdvReac Type Severity Reaction Status Date / Time No Known Allergies Allergy Verified 07/31/22 18:11 Home Medications Medication Instructions Recorded Confirmed Type clopidogrel 75 mg tablet 75 mg PO QAM 08/17/20 03/31/23 History fluoxetine 20 mg capsule 20 mg PO QAM 08/17/20 03/31/23 History lisinopril 10 mg tablet 10 mg PO QAM 08/17/20 03/31/23 History metformin 500 mg tablet 1,000 mg PO BID 08/17/20 03/31/23 History pantoprazole 40 mg tablet,delayed 40 mg PO DAILY #30 tabs 07/05/22 03/31/23 Rx release aspirin 81 mg tablet,delayed 81 mg PO DAILY 03/31/23 03/31/23 History release levothyroxine 88 mcg tablet 88 mcg PO DAILY 03/31/23 03/31/23 History (Synthroid) magnesium oxide 400 mg PO BID 03/31/23 03/31/23 History simvastatin 40 mg tablet 40 mg PO DAILY 03/31/23 03/31/23 History tamsulosin 0.4 mg capsule 0.4 mg PO DAILY 03/31/23 03/31/23 History Patient History Medical History Aneurysm pts daughter unsure what type, they are watching, follows w/ ange last visit 07/01/2022 Borderline hyperlipidemia Diabetes Enlarged prostate History of COVID-19 11/16- congestion; no hospitalization, no current issues HTN (hypertension) Hypothyroidism Malignant melanoma On anticoagulant therapy plavix Poor historian phone interview done by pts daughter, whom recently took over his medic al/care information after of his Skin cancer 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 w/ immunotherapy completed tx over 1 year ago; follows w/ [facility] last visit 06/2022 TIA (transient ischemic attack) x2 last one 8-10yrs ago; has problems processing info and takes longer to process, but can answer questions appropriately, per daughter Surgical History S/P colonoscopy S/P hernia repair Social History Smoking Status: Unknown if ever smoked Tobacco Type: Smokeless Tobacco (Dip or Chew) Second Hand Exposure: No; Do You Dip or Chew Tobacco: Yes; Hx Alcohol Use: Yes Alcohol type: beer Alcohol Intake Frequency: 2-4 x/Month Hx Substance Use: No Preferred Language: Khmer Communication Ability: Effective Visual Impairment: No Limitations Hearing Ability: Normal News Cameraman Required: No Beliefs That Will Affect Care: None marital status: Current Living Situation: Alone Current Living Situation Comment: dtr goes to drs appointments - he lives by himself current occupational status: retired Feels Safe at Home: Yes Safety Concerns: Feels Safe At This Time Assistive Devices: None Review of Systems Review of Systems: All systems reviewed & are unremarkable except as noted in HPI & below Physical Exam Constitutional: WD/WN, vitals as above cooperative and comfortable Eyes: PERRL, conjunctivae normal, anicteric sclerae ENMT: external ear and nose normal, oropharynx normal Neck: trachea midline, no thyromegaly Respiratory: normal respiratory effort, lungs clear to auscultation Cardiovascular: RRR, no murmur, no edema Heart Sounds: normal S1 and normal S2; no murmur Vessels: no JVD Extremities: no edema Gastrointestinal (Abdomen): Abdomen distended, generalized tenderness in all 4 quadrants with light palpation, bowel sounds auscultated Musculoskeletal: no cyanosis or clubbing, extremities motor strength 5/5 Skin: Healing surgical wound on upper center back from prior malignant melanoma. No purulent drainage or erythema noted Neurologic: PERRL, EOMI, accommodation nl, no face palsy, no dysarthria Psychiatric: A+Ox3, euthymic affect Results & Data Results & Data Vital Signs (Past 12 Hours) Vital Signs Temp Pulse Pulse Resp BP BP Pulse Ox 03/31/23 20:51 36.8 C 89 24 143/86 H 100 03/31/23 19:50 36.5 C 101 H 28 H 128/91 94 03/31/23 19:45 36.5 C 95 H 31 H 113/94 95 03/31/23 19:39 36.4 C L 84 33 H 121/75 96 03/31/23 19:56 92 H 34 H 94 03/31/23 19:56 93 H 33 H 94 03/31/23 19:15 36.2 C L 84 34 H 112/74 98 03/31/23 19:00 35.6 C L 89 31 H 127/70 95 03/31/23 18:58 35.3 C L 95 H 35 H 121/87 92 03/31/23 18:21 92 H 33 H 115/83 90 03/31/23 18:27 92 H 31 H 90 03/31/23 18:00 77 36 H 111/76 93 03/31/23 17:45 81 44 H 93/66 L 90 03/31/23 17:30 84 45 H 94/70 L 88 L 03/31/23 16:38 34.9 C L 89 35 H 107/80 88 L 03/31/23 16:51 102 H O2 Del Method O2 Flow Rate FiO2 03/31/23 20:51 Room Air 50 03/31/23 19:50 BiPAP 70 03/31/23 19:45 BiPAP 70 03/31/23 19:39 BiPAP 70 03/31/23 19:56 55 03/31/23 19:56 BiPAP 55 03/31/23 19:15 BiPAP 70 03/31/23 19:00 BiPAP 70 03/31/23 18:58 BiPAP 70 03/31/23 18:21 03/31/23 18:27 70 03/31/23 18:00 Non-rebreather 15 03/31/23 17:45 Non-rebreather 15 03/31/23 17:30 Non-rebreather 15 03/31/23 16:38 Non-rebreather 03/31/23 16:51 Coding Level of Care Code 76630 CRITICAL CARE 1ST 30-74M Diagnoses Acute pancreatitis K85.90 Acute pancreatitis complication: unspecified Pancreatitis type: unspecified pancreatitis type Acute hepatitis B17.9 Acute respiratory failure with hypoxia J96.01 Type 2 diabetes mellitus E11.9 High anion gap metabolic acidosis E87.29 SIRS (systemic inflammatory response syndrome) R65.10 DKA (diabetic ketoacidosis) E10.11 Diabetes mellitus complication detail: with coma Diabetes mellitus type: type 1 GUILLERMINA (acute kidney injury) N17.9 Acute hyperkalemia E87.5 (1) Acute pancreatitis Acute pancreatitis complication: unspecified Pancreatitis type: unspecified pancreatitis type Qualified Code(s): K85.90 - Acute pancreatitis without necrosis or infection, unspecified (7) DKA (diabetic ketoacidosis) Diabetes mellitus complication detail: with coma Diabetes mellitus type: type 1 Qualified Code(s): E10.11 - Type 1 diabetes mellitus with ketoacidosis with coma
[2023-03-31 21:52] LABS: iSTAT Allen Test Pass; iSTAT Art Bld Gas pCO2 Correct 23 mmHg (35-46); iSTAT Art Bld Gas pH Corrected 7.426 (7.35-7.45); iSTAT Arterial Blood Gas HCO3 15 meg/L (19-24); iSTAT Arterial Blood Gas pCO2 23 mmHg (35-46); iSTAT Arterial Blood Gas pH 7.42 (7.35-7.45); iSTAT Arterial Blood Gas pO2 57 mmHg (80-95); iSTAT Arterial Blood Gas pO2 C 57; iSTAT Carbon Dioxide 16 mmol/L (24-31); iSTAT Hematocrit 43 % (42-52); iSTAT Hemoglobin 14.6 g/dl (14.0-18.0); iSTAT Potassium 4.2 mmol/L (3.3-5.0); iSTAT Site L Radial; iSTAT Sodium 138 mmol/L (135-144)
[2023-03-31] MEDS: PLASMA-LYTE A 1,000 ML IV SCH (21:52)
--- NOTE | 2023-03-31 21:57 | Ultrasound Report ---
ULTRASOUND RIGHT UPPER QUADRANT ABDOMEN CLINICAL HISTORY: Elevated hepatic transaminases. COMPARISON STUDY: Abdominal CT dated 03/31/2023 TECHNIQUE: Real-time, grayscale, and color flow sonography of the right upper quadrant of the abdomen was performed. Images are reviewed in the transverse and longitudinal planes. FINDINGS: Liver: The liver is normal in size and heterogeneous in echotexture. There is no intrahepatic biliary ductal dilatation. The main portal vein is patent. Gallbladder: The gallbladder is normal in appearance. No gallstones are identified. There is no gallb ladder wall thickening or pericholecystic fluid. A sonographic Dykes's sign could not be assessed. T he common bile duct measures up to 0.4 cm in diameter. Pancreas: Not visualized due to bowel gas. Right kidney: Survey images of the right kidney demonstrate cortical atrophy. Echotexture is normal. There is no hydronephrosis. Ascites: There is trace perihepatic ascites. IMPRESSION: 1. No gallstones are identified. 2. Heterogeneous liver with trace perihepatic ascites. 3. Nonvisualization of the pancreas. ACT 112: Negative or not required by law. Electronically signed by: Stephen Devlin M.D. 03/31/2023 9:56 PM
--- NOTE | 2023-03-31 22:02 | Ultrasound Report ---
DOPPLER ULTRASOUND OF THE HEPATIC AND PORTAL VASCULATURE CLINICAL HISTORY: Elevated hepatic transaminases. Pancreatitis. COMPARISON STUDY: Abdominal CT and abdominal ultrasound performed the same day 03/31/2023. FINDINGS: Real-time grayscale and color Doppler sonography of the hepatic and portal vasculature is p erformed. The main portal vein and right portal vein are patent with normal direction of flow. Veloci ties in the main portal vein measuring up to 26 cm/s. The left portal vein was not visualized. The ri ght hepatic vein and the middle hepatic vein are patent with preservation of the normal hepatic venou s waveforms. The left hepatic vein was not visualized. The hepatic artery is patent with velocities m easuring up to 106 cm/s. The abdominal aorta and IVC were not visualized due to overlying bowel gas. The splenic vein was not visualized. IMPRESSION: The visualized hepatic and portal veins are patent with normal direction of flow as detai led above. The left lobe vessels were not well-visualized. Electronically signed by: Stephen Devlin M.D. 03/31/2023 10:00 PM
[2023-03-31] MEDS: HEPARIN SOD 5,000 UNIT/0.5 ML VIAL SQ SCH (22:06)
[2023-03-31] MEDS: INSULIN ASPART PER UNIT CHARGE SC SCH (22:07)
[2023-03-31] MEDS: MAGNESIUM OXIDE 400 MG TAB PO SCH (22:08)
[2023-03-31] MEDS: PIPERACILLIN/TAZOBACTAM 4.5 GM in DEXTROSE 5% 100 ML IV SCH (22:38)
[2023-04-01 00:51] LABS: Calcium 8.8 mg/dl (8.6-10.3); Creatinine Clr Calc Pharmacy 52.8 ml/min; Est GFR (African American) 56.3 ml/min; Est GFR (Non-African American) 48.6 ml/min; Potassium 4.2 mmol/L (3.5-5.1)
[2023-04-01] MEDS: MoRPHine SULFATE 2 MG/ML CARP IV PRN ×2 (02:34→06:14)
[2023-04-01] MEDS: ONDANSETRON INJ 2 MG/ML 2 ML VIAL IV PRN (03:04)
[2023-04-01] MEDS: PLASMA-LYTE A 1,000 ML IV SCH ×3 (04:14→23:14)
[2023-04-01 05:18] LABS: Basophils # (auto) 0.04 K/uL (0-0.2); Basophils % (auto) 0.3 %; Hematocrit (blood only) 43.3 % (42.0-52.0); Hemoglobin 15.1 g/dl (14.0-18.0); Immature Granulocytes # (auto) 0.05 K/uL (0.01-0.20); Immature Granulocytes % (auto) 0.4 %; Lymphocytes # (auto) 0.92 K/uL (1.2-3.4); Lymphocytes % (auto) 6.9 %; Mean Corpuscular Hemoglobin 30.9 pg (25.0-34.0); Mean Corpuscular Hgb Conc 34.9 g/dL (32.0-36.0); Mean Corpuscular Volume 88.7 fL (80.0-100.0); Monocytes # (auto) 0.69 K/uL (0.11-0.59); Monocytes % (auto) 5.2 %; Neutrophils # (auto) 11.69 K/uL (1.40-6.50); Neutrophils % (auto) 87.2 %; Platelet Count 157 K/uL (130-400); RDW Coefficient of Variation 15.2 % (11.5-14.5); RDW Standard Deviation 49.4 fL (36.4-46.3); Red Blood Count 4.88 M/uL (4.70-6.10); White Blood Count 13.39 K/ul (4.8-10.8)
[2023-04-01 05:56] LABS: INR 1.3 (0.9-1.1); Prothrombin Time 13.6 Seconds (9.0-12.0)
[2023-04-01] MEDS: LEVOTHYROXINE SODIUM 88 MCG TABLET PO SCH (06:11)
[2023-04-01] MEDS: PIPERACILLIN/TAZOBACTAM 4.5 GM in DEXTROSE 5% 100 ML IV SCH ×3 (06:12→22:46)
[2023-04-01 06:30] LABS: Albumin Globulin Ratio 1.5 (0.9-2); Albumin Level 3.4 gm/dl (3.4-5.0); BUN Creatinine Ratio 28.9 (10-20); Calcium 8.6 mg/dl (8.6-10.3); Creatinine Clr Calc Pharmacy 55.9 ml/min; Est GFR (African American) 60.4 ml/min; Est GFR (Non-African American) 52.1 ml/min; Globulin 2.2 gm/dl (2.5-4.0); Magnesium 1.9 mg/dl (1.7-2.4); Phosphorus 3.1 mg/dl (2.5-4.9); Total Protein 5.6 gm/dl (6.0-8.3)
[2023-04-01] MEDS: INSULIN ASPART PER UNIT CHARGE SC SCH ×4 (07:56→21:12)
[2023-04-01 08:48] LABS: Estimated Average Glucose 171 mg/dl; Hemoglobin A1C 7.6 % (4.5-5.6)
[2023-04-01] MEDS: CLOPIDOGREL BISULFATE 75 MG TAB PO SCH (08:57)
[2023-04-01] MEDS: MAGNESIUM OXIDE 400 MG TAB PO SCH ×2 (08:57→21:12)
[2023-04-01] MEDS: ASPIRIN 81 MG ECTAB PO SCH (08:58)
[2023-04-01] MEDS: HEPARIN SOD 5,000 UNIT/0.5 ML VIAL SQ SCH ×2 (08:58→21:12)
[2023-04-01] MEDS: FLUoxetine HCL 20 MG CAP PO SCH (08:58)
--- NOTE | 2023-04-01 09:03 | Gastrointestinal Consultation ---
Date of Consultation April 01, 2023 Assessment & Plan (1) Acute pancreatitis: He has acute pancreatitis of unclear etiology. Could consider lipid induced but usually people have history of uncontrolled hyperlipidemia for this to be an issue. May well just be idiopathic acute pancreatitis. He seems to have some element of encephalopathy from this although I do not know what his baseline is. With me he has difficulty answering questions. At this point all we can do is continue aggressive fluid resuscitation and pain control. Also address any other complications that arise and follow as he progresses. (2) Acute hepatitis: Again working with lack of information but my guess is the elevated LFT's are related to the pancreatitis and will resolve as time goes on. Nothing acute to do to evaluate this at this time. History of Present Illness Reason for Consultation: acute pancreatitis, elevated LFT's Attending Physician: Emeka Parson MD History of Present Illness 72 year old man admitted with acute pancreatitis. He is somewhat confused now and is unable to cooperate with history. Apparently developed abdominal pain and was admitted to hospital with CT changes consistent with pancreatitis. No evidence of biliary tract disease. LFT's were elevated on admit as well. Allergies Allergy/AdvReac Type Severity Reaction Status Date / Time No Known Allergies Allergy Verified 07/31/22 18:11 Home Medications Medication Instructions Recorded Confirmed Type clopidogrel 75 mg tablet 75 mg PO QAM 08/17/20 03/31/23 History fluoxetine 20 mg capsule 20 mg PO QAM 08/17/20 03/31/23 History lisinopril 10 mg tablet 10 mg PO QAM 08/17/20 03/31/23 History metformin 500 mg tablet 1,000 mg PO BID 08/17/20 03/31/23 History pantoprazole 40 mg tablet,delayed 40 mg PO DAILY #30 tabs 07/05/22 03/31/23 Rx release aspirin 81 mg tablet,delayed 81 mg PO DAILY 03/31/23 03/31/23 History release levothyroxine 88 mcg tablet 88 mcg PO DAILY 03/31/23 03/31/23 History (Synthroid) magnesium oxide 400 mg PO BID 03/31/23 03/31/23 History simvastatin 40 mg tablet 40 mg PO DAILY 03/31/23 03/31/23 History tamsulosin 0.4 mg capsule 0.4 mg PO DAILY 03/31/23 03/31/23 History Patient History Medical History Aneurysm pts daughter unsure what type, they are watching, follows w/ [facility] last visit 07/01/2022 Borderline hyperlipidemia Diabetes Enlarged prostate History of COVID-19 11/16- congestion; no hospitalization, no current issues HTN (hypertension) Hypothyroidism Malignant melanoma On anticoagulant therapy plavix Poor historian phone interview done by pts daughter, whom recently took over his medical/care information after of his Skin cancer 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 w/ immunotherapy completed tx over 1 year ago; follows w/ [facility] last visit 06/2022 TIA (transient ischemic attack) x2 last one 8-10yrs ago; has problems processing info and takes longer to process, but can answer questions appropriately, per daughter Surgical History S/P colonoscopy S/P hernia repair Social History Smoking Status: Unknown if ever smoked Tobacco Type: Smokeless Tobacco (Dip or Chew) Second Hand Exposure: No; Do You Dip or Chew Tobacco: Yes; Hx Alcohol Use: Yes Alcohol type: beer Alcohol Intake Frequency: 2-4 x/Month Hx Substance Use: No Preferred Language: Telugu Communication Ability: Effective Visual Impairment: No Limitations Hearing Ability: Normal Line [employer] Required: No Beliefs That Will Affect Care: None marital status: Current Living Situation: Alone Current Living Situation Comment: dtr goes to drs appointments - he lives by himself current occupational status: retired Feels Safe at Home: Yes Safety Concerns: Feels Safe At This Time Assistive Devices: None Review of Systems Review of Systems: Unobtainable due to cognitive status Physical Exam Constitutional: WD/WN, vitals as above no acute distress Eyes: PERRL, conjunctivae normal, anicteric sclerae ENMT: external ear and nose normal, oropharynx normal Neck: trachea midline, no thyromegaly Respiratory: normal respiratory effort, lungs clear to auscultation Cardiovascular: RRR, no murmur, no edema Gastrointestinal (Abdomen): normal bowel sounds, soft, nontender, no hepatosplenomegaly Percussion/Palpation: + abdomen tender (diffusely) and + guarding Musculoskeletal: Extremities: no cyanosis and no clubbing Skin: no rashes, warm and dry Neurologic: PERRL, EOMI, accommodation nl, no face palsy, no dysarthria Psychiatric: Orientation: alert and oriented x 3 Results & Data Vital Signs (Past 12 Hours) Vital Signs Temp Pulse Resp BP Pulse Ox O2 Del Method O2 Flow Rate 04/01/23 06:27 96 Nasal Cannula 2 04/01/23 06:00 91 Room Air 04/01/23 06:27 91 Nasal Cannula 0 04/01/23 06:00 Room Air 04/01/23 03:00 Nasal Cannula 04/01/23 03:00 97 Nasal Cannula 2 04/01/23 03:50 37.2 C 77 35 H 97 4 04/01/23 03:40 37.2 C 78 32 H 97 04/01/23 03:30 36.9 C 78 37 H 95 04/01/23 03:20 36.9 C 81 35 H 95 04/01/23 03:10 36.9 C 83 33 H 94 04/01/23 03:00 36.9 C 85 33 H 95 04/01/23 03:00 124/76 04/01/23 02:50 36.7 C 79 35 H 97 04/01/23 02:40 36.6 C 82 36 H 96 04/01/23 02:37 36.6 C 86 38 H 96 04/01/23 02:37 133/76 04/01/23 02:30 36.6 C 84 35 H 96 04/01/23 02:20 37.3 C 76 35 H 98 04/01/23 02:10 37.1 C 86 34 H 98 04/01/23 02:01 153/74 H 04/01/23 02:01 37.1 C 78 36 H 99 04/01/23 02:00 37.5 C 79 31 H 98 04/01/23 01:50 37.5 C 96 H 34 H 100 04/01/23 01:40 37.5 C 74 37 H 100 04/01/23 01:30 37.5 C 77 36 H 99 04/01/23 01:20 37.5 C 83 34 H 97 04/01/23 01:10 37.5 C 81 36 H 96 04/01/23 01:00 37.5 C 98 H 36 H 96 04/01/23 01:00 142/87 H 04/01/23 00:50 37.5 C 36 H 95 04/01/23 00:40 37.5 C 89 34 H 95 04/01/23 00:30 37.4 C 83 33 H 95 04/01/23 00:20 37.4 C 85 36 H 95 04/01/23 00:10 37.4 C 85 32 H 96 04/01/23 02:00 Nasal Cannula 04/01/23 01:00 Nasal Cannula 04/01/23 00:00 Nasal Cannula 03/31/23 23:40 80 03/31/23 22:00 88 L Nasal Cannula 6 04/01/23 00:00 37.4 C 90 35 H 95 04/01/23 00:00 134/78 03/31/23 23:50 37.3 C 86 32 H 96 03/31/23 23:40 37.4 C 82 34 H 96 03/31/23 23:30 37.4 C 93 H 41 H 97 03/31/23 23:20 37.4 C 86 34 H 97 03/31/23 23:10 37.1 C 81 32 H 100 03/31/23 23:00 37.4 C 80 36 H 93 03/31/23 23:00 123/77 03/31/23 22:50 37.4 C 82 38 H 96 03/31/23 22:40 37.4 C 87 41 H 97 03/31/23 22:30 37.3 C 85 37 H 98 03/31/23 22:20 37.3 C 77 37 H 92 03/31/23 21:00 Nasal Cannula, BiPAP 03/31/23 22:00 Nasal Cannula 10 03/31/23 22:10 37.2 C 87 34 H 91 03/31/23 22:00 37.2 C 85 35 H 93 03/31/23 22:00 134/81 03/31/23 21:50 37.1 C 90 35 H 92 03/31/23 21:40 37.1 C 88 40 H 93 03/31/23 21:30 37.0 C 89 33 H 82 L 03/31/23 21:20 37.0 C 74 34 H 90 03/31/23 21:10 36.9 C 83 32 H 93 03/31/23 21:00 36.9 C 78 31 H 98 03/31/23 21:00 147/85 H Laboratory Results 04/01/23 04/01/23 04/01/23 Range/Units 08:29 07:30 07:11 WBC (4.8-10.8) K/ul RBC (4.70-6.10) M/uL Hgb (14.0-18.0) g/dl POC Hgb (14.0-18.0) g/dl Hct (42.0-52.0) % POC Hct (42-52) % MCV (80.0-100.0) fL MCH (25.0-34.0) pg MCHC (32.0-36.0) g/dL RDW Std Deviation (36.4-46.3) fL RDW Coeff of Dinorah (11.5-14.5) % Plt Count (130-400) K/uL MPV (9.4-12.4) fL Immature Gran % (Auto) % Neut % (Auto) % Lymph % (Auto) % Cobb % (Auto) % Eos % (Auto) % Baso % (Auto) % Neut # (Auto) (1.40-6.50) K/uL Lymph # (Auto) (1.2-3.4) K/uL Cobb # (Auto) (0.11-0.59) K/uL Eos # (Auto) (0-0.50) K/uL Baso # (Auto) (0-0.2) K/uL Immature Gran # (Auto) (0.01-0.20) K/uL Dohle Bodies Polychromasia Echinocytes PT (9.0-12.0) Seconds INR (0.9-1.1) APTT (21.0-31.0) Seconds PTT Ratio Sample Site POC pH (7.35-7.45) POC pCO2 (35-46) mmHg POC pO2 (80-95) mmHg POC HCO3 (19-24) amanda/L POC Base Excess (-9-1.8) amanda/L ABG pH (7.35-7.45) ABG pH (Temp Correct) (7.35-7.45) ABG pCO2 (35-46) mmHg ABG pCO2 (Temp Corrct (35-46) mmHg ABG pO2 (80-95) mmHg POC ABG pO2 at Pt Temp ABG HCO3 (19-24) mmol/L POC ABG O2 Sat (90-95) % ABG O2 Saturation (90-95) % ABG Base Excess (-9-1.8) mEq/L Donnell Test (Pos) Oxygen Given O2 Delivery Device POC Sodium (135-144) mmol/L Sodium (136-145) mmol/L POC Potassium (3.3-5.0) mmol/L Potassium (3.5-5.1) mmol/L POC Chloride (101-112) mmol/L Chloride (98-107) mmol/L Carbon Dioxide (21-32) mmol/L POC Total CO2 (24-31) mmol/L Anion Gap (3-11) POC Anion Gap (16-25) mmol/L POC BUN (7-18) mg/dl BUN (6-23) mg/dl Creatinine (0.6-1.4) mg/dl POC Creatinine (0.6-1.3) mg/dl Est Cr Clr Drug Dosing ml/min Est GFR ( Amer) ml/min Est GFR (Non-Af Amer) ml/min BUN/Creatinine Ratio (10-20) Glucose (70-99(Fasting)) mg/dl POC Glucose 133 H 117 H 108 H (70-99) mg/dl POC Glucose (other) (70-99) mg/dl Estimat Average Glucose mg/dl Hemoglobin A1c (4.5-5.6) % Lactate (0.4-2.0) mmol/L Calcium (8.6-10.3) mg/dl POC Ioniz Calcium Misha (1.12-1.32) mmol/l Ionized Calcium (1.12-1.32) mmol/L Phosphorus (2.5-4.9) mg/dl Magnesium (1.7-2.4) mg/dl Total Bilirubin (0.2-1.0) mg/dl Direct Bilirubin AST (13-39) U/L ALT (7-52) U/L Alkaline Phosphatase (34-104) U/L Lactate Dehydrogenase (86-244) U/L Total Creatine Kinase (30-223) U/L Troponin I High Sens (0-20) pg/ml Total Protein (6.0-8.3) gm/dl Albumin (3.4-5.0) gm/dl Globulin (2.5-4.0) gm/dl Albumin/Globulin Ratio (0.9-2) Triglycerides (0-150) mg/dl Lipase (11-82) U/L Procalcitonin (0-0.5) ng/ml TSH (0.300-4.500) uIu/ml Free T4 (0.61-1.60) ng/dl Urine Color Urine Appearance (Clear) Urine pH (4.5-7.5) Ur Specific [place] (1.000-1.030) Urine Protein (Negative) Urine Glucose (UA) (Negative) Urine Ketones (Negative) Urine Blood (Negative) Urine Nitrite (Negative) Urine Bilirubin (Negative) Urine Urobilinogen (Negative) Ur Leukocyte Esterase (Negative) Urine WBC (Auto) (0-5) /hpf Urine RBC (Auto) (0-4) /hpf U Hyaline Cast (Auto) (0-5) /lpf U Epithel Cells (Auto) (0-5) /lpf Urine Bacteria (Auto) (Negative) Nasal Screen MRSA (PCR) (Negative) Salicylates (3.0-30) mg/dl Urine Opiates Screen (Neg) Ur Methadone, Qual (Neg) Acetaminophen (10-30) ug/ml Urine Barbiturates (Neg) Ur Phencyclidine (PCP) (Neg) U Amphetamin/Meth Scrn (Neg) MDMA (Ecstasy) Screen (Neg) U Benzodiazepines Scrn (Neg) Ur Cocaine Metabolite (Neg) U Marijuana (THC) Screen (Neg) Ethyl Alcohol mg/dL (<10.0) mg/dl Anaplasma Smear A. phagocytophilum DNA Babesia Smear Babesia microti DNA PCR Lyme Disease IgG Ab (Negative) Lyme IgG (Western Blot) Lyme IgG 18 kDa Band Lyme IgG 23 kDa Band Lyme IgG 28 kDa Band Lyme IgG 30 kDa Band Lyme IgG 39 kDa Band Lyme IgG 41 kDa Band Lyme IgG 45 kDa Band Lyme IgG 58 kDa Band Lyme IgG 66 kDa Band Lyme IgG 93 kDa Band Lyme IgM Ab (WB) Lyme Disease IgM Ab (Negative) Lyme IgM 23 kDa Band Lyme IgM 39 kDa Band Lyme IgM 41 kDa Band Hepatitis A IgM Ab Hep Bs Antigen Hep Bs Ag Confirmation Hep B Core IgM Ab Hepatitis C Ab (EIA) Hep C Ab Signal/Cutoff SARS-CoV-2, RNA, NAAT (NEGATIVE) 0504/01/23 04/01/23 Range/Units 05:04 04:50 04:50 WBC (4.8-10.8) K/ul RBC (4.70-6.10) M/uL Hgb (14.0-18.0) g/dl POC Hgb (14.0-18.0) g/dl Hct (42.0-52.0) % POC Hct (42-52) % MCV (80.0-100.0) fL MCH (25.0-34.0) pg MCHC (32.0-36.0) g/dL RDW Std Deviation (36.4-46.3) fL RDW Coeff of Dinorah (11.5-14.5) % Plt Count (130-400) K/uL MPV (9.4-12.4) fL Immature Gran % (Auto) % Neut % (Auto) % Lymph % (Auto) % Cobb % (Auto) % Eos % (Auto) % Baso % (Auto) % Neut # (Auto) (1.40-6.50) K/uL Lymph # (Auto) (1.2-3.4) K/uL Cobb # (Auto) (0.11-0.59) K/uL Eos # (Auto) (0-0.50) K/uL Baso # (Auto) (0-0.2) K/uL Immature Gran # (Auto) (0.01-0.20) K/uL Dohle Bodies Polychromasia Echinocytes PT (9.0-12.0) Seconds INR (0.9-1.1) APTT (21.0-31.0) Seconds PTT Ratio Sample Site POC pH (7.35-7.45) POC pCO2 (35-46) mmHg POC pO2 (80-95) mmHg POC HCO3 (19-24) amanda/L POC Base Excess (-9-1.8) amanda/L ABG pH (7.35-7.45) ABG pH (Temp Correct) (7.35-7.45) ABG pCO2 (35-46) mmHg ABG pCO2 (Temp Corrct (35-46) mmHg ABG pO2 (80-95) mmHg POC ABG pO2 at Pt Temp ABG HCO3 (19-24) mmol/L POC ABG O2 Sat (90-95) % ABG O2 Saturation (90-95) % ABG Base Excess (-9-1.8) mEq/L Donnell Test (Pos) Oxygen Given O2 Delivery Device POC Sodium (135-144) mmol/L Sodium (136-145) mmol/L POC Potassium (3.3-5.0) mmol/L Potassium (3.5-5.1) mmol/L POC Chloride (101-112) mmol/L Chloride (98-107) mmol/L Carbon Dioxide (21-32) mmol/L POC Total CO2 (24-31) mmol/L Anion Gap (3-11) POC Anion Gap (16-25) mmol/L POC BUN (7-18) mg/dl BUN (6-23) mg/dl Creatinine (0.6-1.4) mg/dl POC Creatinine (0.6-1.3) mg/dl Est Cr Clr Drug Dosing ml/min Est GFR ( Amer) ml/min Est GFR (Non-Af Amer) ml/min BUN/Creatinine Ratio (10-20) Glucose (70-99(Fasting)) mg/dl POC Glucose 126 H (70-99) mg/dl POC Glucose (other) (70-99) mg/dl Estimat Average Glucose 171 mg/dl Hemoglobin A1c 7.6 H (4.5-5.6) % Lactate 2.4 H* (0.4-2.0) mmol/L Calcium (8.6-10.3) mg/dl POC Ioniz Calcium Misha (1.12-1.32) mmol/l Ionized Calcium (1.12-1.32) mmol/L Phosphorus (2.5-4.9) mg/dl Magnesium (1.7-2.4) mg/dl Total Bilirubin (0.2-1.0) mg/dl Direct Bilirubin AST (13-39) U/L ALT (7-52) U/L Alkaline Phosphatase (34-104) U/L Lactate Dehydrogenase (86-244) U/L Total Creatine Kinase (30-223) U/L Troponin I High Sens (0-20) pg/ml Total Protein (6.0-8.3) gm/dl Albumin (3.4-5.0) gm/dl Globulin (2.5-4.0) gm/dl Albumin/Globulin Ratio (0.9-2) Triglycerides (0-150) mg/dl Lipase (11-82) U/L Procalcitonin (0-0.5) ng/ml TSH (0.300-4.500) uIu/ml Free T4 (0.61-1.60) ng/dl Urine Color Urine Appearance (Clear) Urine pH (4.5-7.5) Ur Specific [place] (1.000-1.030) Urine Protein (Negative) Urine Glucose (UA) (Negative) Urine Ketones (Negative) Urine Blood (Negative) Urine Nitrite (Negative) Urine Bilirubin (Negative) Urine Urobilinogen (Negative) Ur Leukocyte Esterase (Negative) Urine WBC (Auto) (0-5) /hpf Urine RBC (Auto) (0-4) /hpf U Hyaline Cast (Auto) (0-5) /lpf U Epithel Cells (Auto) (0-5) /lpf Urine Bacteria (Auto) (Negative) Nasal Screen MRSA (PCR) (Negative) Salicylates (3.0-30) mg/dl Urine Opiates Screen (Neg) Ur Methadone, Qual (Neg) Acetaminophen (10-30) ug/ml Urine Barbiturates (Neg) Ur Phencyclidine (PCP) (Neg) U Amphetamin/Meth Scrn (Neg) MDMA (Ecstasy) Screen (Neg) U Benzodiazepines Scrn (Neg) Ur Cocaine Metabolite (Neg) U Marijuana (THC) Screen (Neg) Ethyl Alcohol mg/dL (<10.0) mg/dl Anaplasma Smear A. phagocytophilum DNA Babesia Smear Babesia microti DNA PCR Lyme Disease IgG Ab (Negative) Lyme IgG (Western Blot) Lyme IgG 18 kDa Band Lyme IgG 23 kDa Band Lyme IgG 28 kDa Band Lyme IgG 30 kDa Band Lyme IgG 39 kDa Band Lyme IgG 41 kDa Band Lyme IgG 45 kDa Band Lyme IgG 58 kDa Band Lyme IgG 66 kDa Band Lyme IgG 93 kDa Band Lyme IgM Ab (WB) Lyme Disease IgM Ab (Negative) Lyme IgM 23 kDa Band Lyme IgM 39 kDa Band Lyme IgM 41 kDa Band Hepatitis A IgM Ab Hep Bs Antigen Hep Bs Ag Confirmation Hep B Core IgM Ab Hepatitis C Ab (EIA) Hep C Ab Signal/Cutoff SARS-CoV-2, RNA, NAAT (NEGATIVE) 05/06/23 05/06/23 05/06/23 Range/Units 04:50 04:50 04:50 WBC 13.39 H (4.8-10.8) K/ul RBC 4.88 (4.70-6.10) M/uL Hgb 15.1 (14.0-18.0) g/dl POC Hgb (14.0-18.0) g/dl Hct 43.3 (42.0-52.0) % POC Hct (42-52) % MCV 88.7 D (80.0-100.0) fL MCH 30.9 (25.0-34.0) pg MCHC 34.9 (32.0-36.0) g/dL RDW Std Deviation 49.4 H (36.4-46.3) fL RDW Coeff of Dinorah 15.2 H (11.5-14.5) % Plt Count 157 (130-400) K/uL MPV 10.0 (9.4-12.4) fL Immature Gran % (Auto) 0.4 % Neut % (Auto) 87.2 % Lymph % (Auto) 6.9 % Cobb % (Auto) 5.2 % Eos % (Auto) 0.0 % Baso % (Auto) 0.3 % Neut # (Auto) 11.69 H (1.40-6.50) K/uL Lymph # (Auto) 0.92 L (1.2-3.4) K/uL Cobb # (Auto) 0.69 H (0.11-0.59) K/uL Eos # (Auto) 0.00 (0-0.50) K/uL Baso # (Auto) 0.04 (0-0.2) K/uL Immature Gran # (Auto) 0.05 (0.01-0.20) K/uL Dohle Bodies Polychromasia Echinocytes PT 13.6 H (9.0-12.0) Seconds INR 1.3 H (0.9-1.1) APTT (21.0-31.0) Seconds PTT Ratio Sample Site POC pH (7.35-7.45) POC pCO2 (35-46) mmHg POC pO2 (80-95) mmHg POC HCO3 (19-24) amanda/L POC Base Excess (-9-1.8) amadna/L ABG pH (7.35-7.45) ABG pH (Temp Correct) (7.35-7.45) ABG pCO2 (35-46) mmHg ABG pCO2 (Temp Corrct (35-46) mmHg ABG pO2 (80-95) mmHg POC ABG pO2 at Pt Temp ABG HCO3 (19-24) mmol/L POC ABG O2 Sat (90-95) % ABG O2 Saturation (90-95) % ABG Base Excess (-9-1.8) mEq/L Donnell Test (Pos) Oxygen Given O2 Delivery Device POC Sodium (135-144) mmol/L Sodium 139 (136-145) mmol/L POC Potassium (3.3-5.0) mmol/L Potassium 4.0 (3.5-5.1) mmol/L POC Chloride (101-112) mmol/L Chloride 109 H (98-107) mmol/L Carbon Dioxide 20 L (21-32) mmol/L POC Total CO2 (24-31) mmol/L Anion Gap 10 (3-11) POC Anion Gap (16-25) mmol/L POC BUN (7-18) mg/dl BUN 39 H (6-23) mg/dl Creatinine 1.35 (0.6-1.4) mg/dl POC Creatinine (0.6-1.3) mg/dl Est Cr Clr Drug Dosing 55.9 ml/min Est GFR ( Amer) 60.4 ml/min Est GFR (Non-Af Amer) 52.1 ml/min BUN/Creatinine Ratio 28.9 H (10-20) Glucose 143 H (70-99(Fasting)) mg/dl POC Glucose (70-99) mg/dl POC Glucose (other) (70-99) mg/dl Estimat Average Glucose mg/dl Hemoglobin A1c (4.5-5.6) % Lactate (0.4-2.0) mmol/L Calcium 8.6 (8.6-10.3) mg/dl POC Ioniz Calcium Misha (1.12-1.32) mmol/l Ionized Calcium (1.12-1.32) mmol/L Phosphorus 3.1 (2.5-4.9) mg/dl Magnesium 1.9 (1.7-2.4) mg/dl Total Bilirubin 4.0 H (0.2-1.0) mg/dl Direct Bilirubin AST 137 H (13-39) U/L ALT 450 H (7-52) U/L Alkaline Phosphatase 101 (34-104) U/L Lactate Dehydrogenase (86-244) U/L Total Creatine Kinase (30-223) U/L Troponin I High Sens (0-20) pg/ml Total Protein 5.6 L (6.0-8.3) gm/dl Albumin 3.4 (3.4-5.0) gm/dl Globulin 2.2 L (2.5-4.0) gm/dl Albumin/Globulin Ratio 1.5 (0.9-2) Triglycerides (0-150) mg/dl Lipase (11-82) U/L Procalcitonin (0-0.5) ng/ml TSH (0.300-4.500) uIu/ml Free T4 (0.61-1.60) ng/dl Urine Color Urine Appearance (Clear) Urine pH (4.5-7.5) Ur Specific [place] (1.000-1.030) Urine Protein (Negative) Urine Glucose (UA) (Negative) Urine Ketones (Negative) Urine Blood (Negative) Urine Nitrite (Negative) Urine Bilirubin (Negative) Urine Urobilinogen (Negative) Ur Leukocyte Esterase (Negative) Urine WBC (Auto) (0-5) /hpf Urine RBC (Auto) (0-4) /hpf U Hyaline Cast (Auto) (0-5) /lpf U Epithel Cells (Auto) (0-5) /lpf Urine Bacteria (Auto) (Negative) Nasal Screen MRSA (PCR) (Negative) Salicylates (3.0-30) mg/dl Urine Opiates Screen (Neg) Ur Methadone, Qual (Neg) Acetaminophen (10-30) ug/ml Urine Barbiturates (Neg) Ur Phencyclidine (PCP) (Neg) U Amphetamin/Meth Scrn (Neg) MDMA (Ecstasy) Screen (Neg) U Benzodiazepines Scrn (Neg) Ur Cocaine Metabolite (Neg) U Marijuana (THC) Screen (Neg) Ethyl Alcohol mg/dL (<10.0) mg/dl Anaplasma Smear A. phagocytophilum DNA Babesia Smear Babesia microti DNA PCR Lyme Disease IgG Ab (Negative) Lyme IgG (Western Blot) Lyme IgG 18 kDa Band Lyme IgG 23 kDa Band Lyme IgG 28 kDa Band Lyme IgG 30 kDa Band Lyme IgG 39 kDa Band Lyme IgG 41 kDa Band Lyme IgG 45 kDa Band Lyme IgG 58 kDa Band Lyme IgG 66 kDa Band Lyme IgG 93 kDa Band Lyme IgM Ab (WB) Lyme Disease IgM Ab (Negative) Lyme IgM 23 kDa Band Lyme IgM 39 kDa Band Lyme IgM 41 kDa Band Hepatitis A IgM Ab Hep Bs Antigen Hep Bs Ag Confirmation Hep B Core IgM Ab Hepatitis C Ab (EIA) Hep C Ab Signal/Cutoff SARS-CoV-2, RNA, NAAT (NEGATIVE) 04/01/23 04/01/23 04/01/23 Range/Units 03:11 01:07 00:17 WBC (4.8-10.8) K/ul RBC (4.70-6.10) M/uL Hgb (14.0-18.0) g/dl POC Hgb (14.0-18.0) g/dl Hct (42.0-52.0) % POC Hct (42-52) % MCV (80.0-100.0) fL MCH (25.0-34.0) pg MCHC (32.0-36.0) g/dL RDW Std Deviation (36.4-46.3) fL RDW Coeff of Dinorah (11.5-14.5) % Plt Count (130-400) K/uL MPV (9.4-12.4) fL Immature Gran % (Auto) % Neut % (Auto) % Lymph % (Auto) % Cobb % (Auto) % Eos % (Auto) % Baso % (Auto) % Neut # (Auto) (1.40-6.50) K/uL Lymph # (Auto) (1.2-3.4) K/uL Cobb # (Auto) (0.11-0.59) K/uL Eos # (Auto) (0-0.50) K/uL Baso # (Auto) (0-0.2) K/uL Immature Gran # (Auto) (0.01-0.20) K/uL Dohle Bodies Polychromasia Echinocytes PT (9.0-12.0) Seconds INR (0.9-1.1) APTT (21.0-31.0) Seconds PTT Ratio Sample Site POC pH (7.35-7.45) POC pCO2 (35-46) mmHg POC pO2 (80-95) mmHg POC HCO3 (19-24) amanda/L POC Base Excess (-9-1.8) amanda/L ABG pH (7.35-7.45) ABG pH (Temp Correct) (7.35-7.45) ABG pCO2 (35-46) mmHg ABG pCO2 (Temp Corrct (35-46) mmHg ABG pO2 (80-95) mmHg POC ABG pO2 at Pt Temp ABG HCO3 (19-24) mmol/L POC ABG O2 Sat (90-95) % ABG O2 Saturation (90-95) % ABG Base Excess (-9-1.8) mEq/L Donnell Test (Pos) Oxygen Given O2 Delivery Device POC Sodium (135-144) mmol/L Sodium (136-145) mmol/L POC Potassium (3.3-5.0) mmol/L Potassium (3.5-5.1) mmol/L POC Chloride (101-112) mmol/L Chloride (98-107) mmol/L Carbon Dioxide (21-32) mmol/L POC Total CO2 (24-31) mmol/L Anion Gap (3-11) POC Anion Gap (16-25) mmol/L POC BUN (7-18) mg/dl BUN (6-23) mg/dl Creatinine (0.6-1.4) mg/dl POC Creatinine (0.6-1.3) mg/dl Est Cr Clr Drug Dosing ml/min Est GFR ( Amer) ml/min Est GFR (Non-Af Amer) ml/min BUN/Creatinine Ratio (10-20) Glucose (70-99(Fasting)) mg/dl POC Glucose 124 H 152 H (70-99) mg/dl POC Glucose (other) (70-99) mg/dl Estimat Average Glucose mg/dl Hemoglobin A1c (4.5-5.6) % Lactate 2.7 H* (0.4-2.0) mmol/L Calcium (8.6-10.3) mg/dl POC Ioniz Calcium Misha (1.12-1.32) mmol/l Ionized Calcium (1.12-1.32) mmol/L Phosphorus (2.5-4.9) mg/dl Magnesium (1.7-2.4) mg/dl Total Bilirubin (0.2-1.0) mg/dl Direct Bilirubin AST (13-39) U/L ALT (7-52) U/L Alkaline Phosphatase (34-104) U/L Lactate Dehydrogenase (86-244) U/L Total Creatine Kinase (30-223) U/L Troponin I High Sens (0-20) pg/ml Total Protein (6.0-8.3) gm/dl Albumin (3.4-5.0) gm/dl Globulin (2.5-4.0) gm/dl Albumin/Globulin Ratio (0.9-2) Triglycerides (0-150) mg/dl Lipase (11-82) U/L Procalcitonin (0-0.5) ng/ml TSH (0.300-4.500) uIu/ml Free T4 (0.61-1.60) ng/dl Urine Color Urine Appearance (Clear) Urine pH (4.5-7.5) Ur Specific [place] (1.000-1.030) Urine Protein (Negative) Urine Glucose (UA) (Negative) Urine Ketones (Negative) Urine Blood (Negative) Urine Nitrite (Negative) Urine Bilirubin (Negative) Urine Urobilinogen (Negative) Ur Leukocyte Esterase (Negative) Urine WBC (Auto) (0-5) /hpf Urine RBC (Auto) (0-4) /hpf U Hyaline Cast (Auto) (0-5) /lpf U Epithel Cells (Auto) (0-5) /lpf Urine Bacteria (Auto) (Negative) Nasal Screen MRSA (PCR) (Negative) Salicylates (3.0-30) mg/dl Urine Opiates Screen (Neg) Ur Methadone, Qual (Neg) Acetaminophen (10-30) ug/ml Urine Barbiturates (Neg) Ur Phencyclidine (PCP) (Neg) U Amphetamin/Meth Scrn (Neg) MDMA (Ecstasy) Screen (Neg) U Benzodiazepines Scrn (Neg) Ur Cocaine Metabolite (Neg) U Marijuana (THC) Screen (Neg) Ethyl Alcohol mg/dL (<10.0) mg/dl Anaplasma Smear A. phagocytophilum DNA Babesia Smear Babesia microti DNA PCR Lyme Disease IgG Ab (Negative) Lyme IgG (Western Blot) Lyme IgG 18 kDa Band Lyme IgG 23 kDa Band Lyme IgG 28 kDa Band Lyme IgG 30 kDa Band Lyme IgG 39 kDa Band Lyme IgG 41 kDa Band Lyme IgG 45 kDa Band Lyme IgG 58 kDa Band Lyme IgG 66 kDa Band Lyme IgG 93 kDa Band Lyme IgM Ab (WB) Lyme Disease IgM Ab (Negative) Lyme IgM 23 kDa Band Lyme IgM 39 kDa Band Lyme IgM 41 kDa Band Hepatitis A IgM Ab Hep Bs Antigen Hep Bs Ag Confirmation Hep B Core IgM Ab Hepatitis C Ab (EIA) Hep C Ab Signal/Cutoff SARS-CoV-2, RNA, NAAT (NEGATIVE) 04/01/23 04/01/23 04/01/23 Range/Units 00:17 00:17 00:01 WBC (4.8-10.8) K/ul RBC (4.70-6.10) M/uL Hgb (14.0-18.0) g/dl POC Hgb (14.0-18.0) g/dl Hct (42.0-52.0) % POC Hct (42-52) % MCV (80.0-100.0) fL MCH (25.0-34.0) pg MCHC (32.0-36.0) g/dL RDW Std Deviation (36.4-46.3) fL RDW Coeff of Dinorah (11.5-14.5) % Plt Count (130-400) K/uL MPV (9.4-12.4) fL Immature Gran % (Auto) % Neut % (Auto) % Lymph % (Auto) % Cobb % (Auto) % Eos % (Auto) % Baso % (Auto) % Neut # (Auto) (1.40-6.50) K/uL Lymph # (Auto) (1.2-3.4) K/uL Cobb # (Auto) (0.11-0.59) K/uL Eos # (Auto) (0-0.50) K/uL Baso # (Auto) (0-0.2) K/uL Immature Gran # (Auto) (0.01-0.20) K/uL Dohle Bodies Polychromasia Echinocytes PT (9.0-12.0) Seconds INR (0.9-1.1) APTT (21.0-31.0) Seconds PTT Ratio Sample Site POC pH (7.35-7.45) POC pCO2 (35-46) mmHg POC pO2 (80-95) mmHg POC HCO3 (19-24) amanda/L POC Base Excess (-9-1.8) amanda/L ABG pH (7.35-7.45) ABG pH (Temp Correct) (7.35-7.45) ABG pCO2 (35-46) mmHg ABG pCO2 (Temp Corrct (35-46) mmHg ABG pO2 (80-95) mmHg POC ABG pO2 at Pt Temp ABG HCO3 (19-24) mmol/L POC ABG O2 Sat (90-95) % ABG O2 Saturation (90-95) % ABG Base Excess (-9-1.8) mEq/L Donnell Test (Pos) Oxygen Given O2 Delivery Device POC Sodium (135-144) mmol/L Sodium 140 (136-145) mmol/L POC Potassium (3.3-5.0) mmol/L Potassium 4.2 (3.5-5.1) mmol/L POC Chloride (101-112) mmol/L Chloride 108 H (98-107) mmol/L Carbon Dioxide 19 L (21-32) mmol/L POC Total CO2 (24-31) mmol/L Anion Gap 13 H (3-11) POC Anion Gap (16-25) mmol/L POC BUN (7-18) mg/dl BUN 40 H (6-23) mg/dl Creatinine 1.43 H D (0.6-1.4) mg/dl POC Creatinine (0.6-1.3) mg/dl Est Cr Clr Drug Dosing 52.8 ml/min Est GFR ( Amer) 56.3 ml/min Est GFR (Non-Af Amer) 48.6 ml/min BUN/Creatinine Ratio 28.0 H (10-20) Glucose 179 H (70-99(Fasting)) mg/dl POC Glucose 171 H (70-99) mg/dl POC Glucose (other) (70-99) mg/dl Estimat Average Glucose mg/dl Hemoglobin A1c (4.5-5.6) % Lactate (0.4-2.0) mmol/L Calcium 8.8 (8.6-10.3) mg/dl POC Ioniz Calcium Misha (1.12-1.32) mmol/l Ionized Calcium 1.12 (1.12-1.32) mmol/L Phosphorus (2.5-4.9) mg/dl Magnesium (1.7-2.4) mg/dl Total Bilirubin (0.2-1.0) mg/dl Direct Bilirubin AST (13-39) U/L ALT (7-52) U/L Alkaline Phosphatase (34-104) U/L Lactate Dehydrogenase (86-244) U/L Total Creatine Kinase (30-223) U/L Troponin I High Sens (0-20) pg/ml Total Protein (6.0-8.3) gm/dl Albumin (3.4-5.0) gm/dl Globulin (2.5-4.0) gm/dl Albumin/Globulin Ratio (0.9-2) Triglycerides (0-150) mg/dl Lipase 930 H (11-82) U/L Procalcitonin (0-0.5) ng/ml TSH (0.300-4.500) uIu/ml Free T4 (0.61-1.60) ng/dl Urine Color Urine Appearance (Clear) Urine pH (4.5-7.5) Ur Specific [place] (1.000-1.030) Urine Protein (Negative) Urine Glucose (UA) (Negative) Urine Ketones (Negative) Urine Blood (Negative) Urine Nitrite (Negative) Urine Bilirubin (Negative) Urine Urobilinogen (Negative) Ur Leukocyte Esterase (Negative) Urine WBC (Auto) (0-5) /hpf Urine RBC (Auto) (0-4) /hpf U Hyaline Cast (Auto) (0-5) /lpf U Epithel Cells (Auto) (0-5) /lpf Urine Bacteria (Auto) (Negative) Nasal Screen MRSA (PCR) (Negative) Salicylates (3.0-30) mg/dl Urine Opiates Screen (Neg) Ur Methadone, Qual (Neg) Acetaminophen (10-30) ug/ml Urine Barbiturates (Neg) Ur Phencyclidine (PCP) (Neg) U Amphetamin/Meth Scrn (Neg) MDMA (Ecstasy) Screen (Neg) U Benzodiazepines Scrn (Neg) Ur Cocaine Metabolite (Neg) U Marijuana (THC) Screen (Neg) Ethyl Alcohol mg/dL (<10.0) mg/dl Anaplasma Smear A. phagocytophilum DNA Babesia Smear Babesia microti DNA PCR Lyme Disease IgG Ab (Negative) Lyme IgG (Western Blot) Lyme IgG 18 kDa Band Lyme IgG 23 kDa Band Lyme IgG 28 kDa Band Lyme IgG 30 kDa Band Lyme IgG 39 kDa Band Lyme IgG 41 kDa Band Lyme IgG 45 kDa Band Lyme IgG 58 kDa Band Lyme IgG 66 kDa Band Lyme IgG 93 kDa Band Lyme IgM Ab (WB) Lyme Disease IgM Ab (Negative) Lyme IgM 23 kDa Band Lyme IgM 39 kDa Band Lyme IgM 41 kDa Band Hepatitis A IgM Ab Hep Bs Antigen Hep Bs Ag Confirmation Hep B Core IgM Ab Hepatitis C Ab (EIA) Hep C Ab Signal/Cutoff SARS-CoV-2, RNA, NAAT (NEGATIVE) 03/31/23 03/31/23 03/31/23 Range/Units 23:03 22:03 21:46 WBC (4.8-10.8) K/ul RBC (4.70-6.10) M/uL Hgb (14.0-18.0) g/dl POC Hgb (14.0-18.0) g/dl Hct (42.0-52.0) % POC Hct (42-52) % MCV (80.0-100.0) fL MCH (25.0-34.0) pg MCHC (32.0-36.0) g/dL RDW Std Deviation (36.4-46.3) fL RDW Coeff of Dinorah (11.5-14.5) % Plt Count (130-400) K/uL MPV (9.4-12.4) fL Immature Gran % (Auto) % Neut % (Auto) % Lymph % (Auto) % Cobb % (Auto) % Eos % (Auto) % Baso % (Auto) % Neut # (Auto) (1.40-6.50) K/uL Lymph # (Auto) (1.2-3.4) K/uL Cobb # (Auto) (0.11-0.59) K/uL Eos # (Auto) (0-0.50) K/uL Baso # (Auto) (0-0.2) K/uL Immature Gran # (Auto) (0.01-0.20) K/uL Dohle Bodies Polychromasia Echinocytes PT (9.0-12.0) Seconds INR (0.9-1.1) APTT (21.0-31.0) Seconds PTT Ratio Sample Site POC pH (7.35-7.45) POC pCO2 (35-46) mmHg POC pO2 (80-95) mmHg POC HCO3 (19-24) amanda/L POC Base Excess (-9-1.8) amanda/L ABG pH (7.35-7.45) ABG pH (Temp Correct) (7.35-7.45) ABG pCO2 (35-46) mmHg ABG pCO2 (Temp Corrct (35-46) mmHg ABG pO2 (80-95) mmHg POC ABG pO2 at Pt Temp ABG HCO3 (19-24) mmol/L POC ABG O2 Sat (90-95) % ABG O2 Saturation (90-95) % ABG Base Excess (-9-1.8) mEq/L Donnell Test (Pos) Oxygen Given O2 Delivery Device POC Sodium (135-144) mmol/L Sodium (136-145) mmol/L POC Potassium (3.3-5.0) mmol/L Potassium (3.5-5.1) mmol/L POC Chloride (101-112) mmol/L Chloride (98-107) mmol/L Carbon Dioxide (21-32) mmol/L POC Total CO2 (24-31) mmol/L Anion Gap (3-11) POC Anion Gap (16-25) mmol/L POC BUN (7-18) mg/dl BUN (6-23) mg/dl Creatinine (0.6-1.4) mg/dl POC Creatinine (0.6-1.3) mg/dl Est Cr Clr Drug Dosing ml/min Est GFR ( Amer) ml/min Est GFR (Non-Af Amer) ml/min BUN/Creatinine Ratio (10-20) Glucose (70-99(Fasting)) mg/dl POC Glucose 219 H 263 H (70-99) mg/dl POC Glucose (other) (70-99) mg/dl Estimat Average Glucose mg/dl Hemoglobin A1c (4.5-5.6) % Lactate (0.4-2.0) mmol/L Calcium (8.6-10.3) mg/dl POC Ioniz Calcium Misha (1.12-1.32) mmol/l Ionized Calcium (1.12-1.32) mmol/L Phosphorus (2.5-4.9) mg/dl Magnesium (1.7-2.4) mg/dl Total Bilirubin (0.2-1.0) mg/dl Direct Bilirubin AST (13-39) U/L ALT (7-52) U/L Alkaline Phosphatase (34-104) U/L Lactate Dehydrogenase (86-244) U/L Total Creatine Kinase (30-223) U/L Troponin I High Sens 30.9 H (0-20) pg/ml Total Protein (6.0-8.3) gm/dl Albumin (3.4-5.0) gm/dl Globulin (2.5-4.0) gm/dl Albumin/Globulin Ratio (0.9-2) Triglycerides (0-150) mg/dl Lipase (11-82) U/L Procalcitonin (0-0.5) ng/ml TSH (0.300-4.500) uIu/ml Free T4 (0.61-1.60) ng/dl Urine Color Urine Appearance (Clear) Urine pH (4.5-7.5) Ur Specific [place] (1.000-1.030) Urine Protein (Negative) Urine Glucose (UA) (Negative) Urine Ketones (Negative) Urine Blood (Negative) Urine Nitrite (Negative) Urine Bilirubin (Negative) Urine Urobilinogen (Negative) Ur Leukocyte Esterase (Negative) Urine WBC (Auto) (0-5) /hpf Urine RBC (Auto) (0-4) /hpf U Hyaline Cast (Auto) (0-5) /lpf U Epithel Cells (Auto) (0-5) /lpf Urine Bacteria (Auto) (Negative) Nasal Screen MRSA (PCR) (Negative) Salicylates (3.0-30) mg/dl Urine Opiates Screen (Neg) Ur Methadone, Qual (Neg) Acetaminophen (10-30) ug/ml Urine Barbiturates (Neg) Ur Phencyclidine (PCP) (Neg) U Amphetamin/Meth Scrn (Neg) MDMA (Ecstasy) Screen (Neg) U Benzodiazepines Scrn (Neg) Ur Cocaine Metabolite (Neg) U Marijuana (THC) Screen (Neg) Ethyl Alcohol mg/dL (<10.0) mg/dl Anaplasma Smear A. phagocytophilum DNA Babesia Smear Babesia microti DNA PCR Lyme Disease IgG Ab (Negative) Lyme IgG (Western Blot) Lyme IgG 18 kDa Band Lyme IgG 23 kDa Band Lyme IgG 28 kDa Band Lyme IgG 30 kDa Band Lyme IgG 39 kDa Band Lyme IgG 41 kDa Band Lyme IgG 45 kDa Band Lyme IgG 58 kDa Band Lyme IgG 66 kDa Band Lyme IgG 93 kDa Band Lyme IgM Ab (WB) Lyme Disease IgM Ab (Negative) Lyme IgM 23 kDa Band Lyme IgM 39 kDa Band Lyme IgM 41 kDa Band Hepatitis A IgM Ab Hep Bs Antigen Hep Bs Ag Confirmation Hep B Core IgM Ab Hepatitis C Ab (EIA) Hep C Ab Signal/Cutoff SARS-CoV-2, RNA, NAAT (NEGATIVE) 03/31/23 03/31/23 03/31/23 Range/Units 21:27 21:07 19:37 WBC (4.8-10.8) K/ul RBC (4.70-6.10) M/uL Hgb (14.0-18.0) g/dl POC Hgb 14.6 (14.0-18.0) g/dl Hct (42.0-52.0) % POC Hct 43 (42-52) % MCV (80.0-100.0) fL MCH (25.0-34.0) pg MCHC (32.0-36.0) g/dL RDW Std Deviation (36.4-46.3) fL RDW Coeff of Dinorah (11.5-14.5) % Plt Count (130-400) K/uL MPV (9.4-12.4) fL Immature Gran % (Auto) % Neut % (Auto) % Lymph % (Auto) % Cobb % (Auto) % Eos % (Auto) % Baso % (Auto) % Neut # (Auto) (1.40-6.50) K/uL Lymph # (Auto) (1.2-3.4) K/uL Cobb # (Auto) (0.11-0.59) K/uL Eos # (Auto) (0-0.50) K/uL Baso # (Auto) (0-0.2) K/uL Immature Gran # (Auto) (0.01-0.20) K/uL Dohle Bodies Polychromasia Echinocytes PT (9.0-12.0) Seconds INR (0.9-1.1) APTT (21.0-31.0) Seconds PTT Ratio Sample Site L Radial POC pH 7.42 (7.35-7.45) POC pCO2 23 L (35-46) mmHg POC pO2 57 L (80-95) mmHg POC HCO3 15 L (19-24) amanda/L POC Base Excess -10.0 L (-9-1.8) amanda/L ABG pH (7.35-7.45) ABG pH (Temp Correct) 7.426 (7.35-7.45) ABG pCO2 (35-46) mmHg ABG pCO2 (Temp Corrct 23 L (35-46) mmHg ABG pO2 (80-95) mmHg POC ABG pO2 at Pt Temp 57 ABG HCO3 (19-24) mmol/L POC ABG O2 Sat 91.0 (90-95) % ABG O2 Saturation (90-95) % ABG Base Excess (-9-1.8) mEq/L Donnell Test Pass (Pos) Oxygen Given O2 Delivery Device Cannula POC Sodium 138 (135-144) mmol/L Sodium (136-145) mmol/L POC Potassium 4.2 (3.3-5.0) mmol/L Potassium (3.5-5.1) mmol/L POC Chloride (101-112) mmol/L Chloride (98-107) mmol/L Carbon Dioxide (21-32) mmol/L POC Total CO2 16 L (24-31) mmol/L Anion Gap (3-11) POC Anion Gap (16-25) mmol/L POC BUN (7-18) mg/dl BUN (6-23) mg/dl Creatinine (0.6-1.4) mg/dl POC Creatinine (0.6-1.3) mg/dl Est Cr Clr Drug Dosing ml/min Est GFR ( Amer) ml/min Est GFR (Non-Af Amer) ml/min BUN/Creatinine Ratio (10-20) Glucose (70-99(Fasting)) mg/dl POC Glucose 300 H (70-99) mg/dl POC Glucose (other) (70-99) mg/dl Estimat Average Glucose mg/dl Hemoglobin A1c (4.5-5.6) % Lactate (0.4-2.0) mmol/L Calcium (8.6-10.3) mg/dl POC Ioniz Calcium Misha (1.12-1.32) mmol/l Ionized Calcium (1.12-1.32) mmol/L Phosphorus (2.5-4.9) mg/dl Magnesium (1.7-2.4) mg/dl Total Bilirubin (0.2-1.0) mg/dl Direct Bilirubin AST (13-39) U/L ALT (7-52) U/L Alkaline Phosphatase (34-104) U/L Lactate Dehydrogenase (86-244) U/L Total Creatine Kinase (30-223) U/L Troponin I High Sens (0-20) pg/ml Total Protein (6.0-8.3) gm/dl Albumin (3.4-5.0) gm/dl Globulin (2.5-4.0) gm/dl Albumin/Globulin Ratio (0.9-2) Triglycerides (0-150) mg/dl Lipase (11-82) U/L Procalcitonin (0-0.5) ng/ml TSH (0.300-4.500) uIu/ml Free T4 (0.61-1.60) ng/dl Urine Color Urine Appearance (Clear) Urine pH (4.5-7.5) Ur Specific [place] (1.000-1.030) Urine Protein (Negative) Urine Glucose (UA) (Negative) Urine Ketones (Negative) Urine Blood (Negative) Urine Nitrite (Negative) Urine Bilirubin (Negative) Urine Urobilinogen (Negative) Ur Leukocyte Esterase (Negative) Urine WBC (Auto) (0-5) /hpf Urine RBC (Auto) (0-4) /hpf U Hyaline Cast (Auto) (0-5) /lpf U Epithel Cells (Auto) (0-5) /lpf Urine Bacteria (Auto) (Negative) Nasal Screen MRSA (PCR) (Negative) Salicylates (3.0-30) mg/dl Urine Opiates Screen (Neg) Ur Methadone, Qual (Neg) Acetaminophen (10-30) ug/ml Urine Barbiturates (Neg) Ur Phencyclidine (PCP) (Neg) U Amphetamin/Meth Scrn (Neg) MDMA (Ecstasy) Screen (Neg) U Benzodiazepines Scrn (Neg) Ur Cocaine Metabolite (Neg) U Marijuana (THC) Screen (Neg) Ethyl Alcohol mg/dL (<10.0) mg/dl Anaplasma Smear A. phagocytophilum DNA Babesia Smear Babesia microti DNA PCR Lyme Disease IgG Ab (Negative) Lyme IgG (Western Blot) Pending Lyme IgG 18 kDa Band Pending Lyme IgG 23 kDa Band Pending Lyme IgG 28 kDa Band Pending Lyme IgG 30 kDa Band Pending Lyme IgG 39 kDa Band Pending Lyme IgG 41 kDa Band Pending Lyme IgG 45 kDa Band Pending Lyme IgG 58 kDa Band Pending Lyme IgG 66 kDa Band Pending Lyme IgG 93 kDa Band Pending Lyme IgM Ab (WB) Pending Lyme Disease IgM Ab (Negative) Lyme IgM 23 kDa Band Pending Lyme IgM 39 kDa Band Pending Lyme IgM 41 kDa Band Pending Hepatitis A IgM Ab Hep Bs Antigen Hep Bs Ag Confirmation Hep B Core IgM Ab Hepatitis C Ab (EIA) Hep C Ab Signal/Cutoff SARS-CoV-2, RNA, NAAT (NEGATIVE) 03/31/23 03/31/23 03/31/23 Range/Units 19:37 19:37 19:37 WBC (4.8-10.8) K/ul RBC (4.70-6.10) M/uL Hgb (14.0-18.0) g/dl POC Hgb (14.0-18.0) g/dl Hct (42.0-52.0) % POC Hct (42-52) % MCV (80.0-100.0) fL MCH (25.0-34.0) pg MCHC (32.0-36.0) g/dL RDW Std Deviation (36.4-46.3) fL RDW Coeff of Dinorah (11.5-14.5) % Plt Count (130-400) K/uL MPV (9.4-12.4) fL Immature Gran % (Auto) % Neut % (Auto) % Lymph % (Auto) % Cobb % (Auto) % Eos % (Auto) % Baso % (Auto) % Neut # (Auto) (1.40-6.50) K/uL Lymph # (Auto) (1.2-3.4) K/uL Cobb # (Auto) (0.11-0.59) K/uL Eos # (Auto) (0-0.50) K/uL Baso # (Auto) (0-0.2) K/uL Immature Gran # (Auto) (0.01-0.20) K/uL Dohle Bodies Polychromasia Echinocytes PT (9.0-12.0) Seconds INR (0.9-1.1) APTT (21.0-31.0) Seconds PTT Ratio Sample Site POC pH (7.35-7.45) POC pCO2 (35-46) mmHg POC pO2 (80-95) mmHg POC HCO3 (19-24) amanda/L POC Base Excess (-9-1.8) amanda/L ABG pH (7.35-7.45) ABG pH (Temp Correct) (7.35-7.45) ABG pCO2 (35-46) mmHg ABG pCO2 (Temp Corrct (35-46) mmHg ABG pO2 (80-95) mmHg POC ABG pO2 at Pt Temp ABG HCO3 (19-24) mmol/L POC ABG O2 Sat (90-95) % ABG O2 Saturation (90-95) % ABG Base Excess (-9-1.8) mEq/L Donnell Test (Pos) Oxygen Given O2 Delivery Device POC Sodium (135-144) mmol/L Sodium (136-145) mmol/L POC Potassium (3.3-5.0) mmol/L Potassium (3.5-5.1) mmol/L POC Chloride (101-112) mmol/L Chloride (98-107) mmol/L Carbon Dioxide (21-32) mmol/L POC Total CO2 (24-31) mmol/L Anion Gap (3-11) POC Anion Gap (16-25) mmol/L POC BUN (7-18) mg/dl BUN (6-23) mg/dl Creatinine (0.6-1.4) mg/dl POC Creatinine (0.6-1.3) mg/dl Est Cr Clr Drug Dosing ml/min Est GFR ( Amer) ml/min Est GFR (Non-Af Amer) ml/min BUN/Creatinine Ratio (10-20) Glucose (70-99(Fasting)) mg/dl POC Glucose (70-99) mg/dl POC Glucose (other) (70-99) mg/dl Estimat Average Glucose mg/dl Hemoglobin A1c (4.5-5.6) % Lactate (0.4-2.0) mmol/L Calcium (8.6-10.3) mg/dl POC Ioniz Calcium Misha (1.12-1.32) mmol/l Ionized Calcium (1.12-1.32) mmol/L Phosphorus (2.5-4.9) mg/dl Magnesium (1.7-2.4) mg/dl Total Bilirubin (0.2-1.0) mg/dl Direct Bilirubin AST (13-39) U/L ALT (7-52) U/L Alkaline Phosphatase (34-104) U/L Lactate Dehydrogenase (86-244) U/L Total Creatine Kinase (30-223) U/L Troponin I High Sens (0-20) pg/ml Total Protein (6.0-8.3) gm/dl Albumin (3.4-5.0) gm/dl Globulin (2.5-4.0) gm/dl Albumin/Globulin Ratio (0.9-2) Triglycerides (0-150) mg/dl Lipase (11-82) U/L Procalcitonin (0-0.5) ng/ml TSH (0.300-4.500) uIu/ml Free T4 (0.61-1.60) ng/dl Urine Color Urine Appearance (Clear) Urine pH (4.5-7.5) Ur Specific [place] (1.000-1.030) Urine Protein (Negative) Urine Glucose (UA) (Negative) Urine Ketones (Negative) Urine Blood (Negative) Urine Nitrite (Negative) Urine Bilirubin (Negative) Urine Urobilinogen (Negative) Ur Leukocyte Esterase (Negative) Urine WBC (Auto) (0-5) /hpf Urine RBC (Auto) (0-4) /hpf U Hyaline Cast (Auto) (0-5) /lpf U Epithel Cells (Auto) (0-5) /lpf Urine Bacteria (Auto) (Negative) Nasal Screen MRSA (PCR) (Negative) Salicylates < 3.0 L (3.0-30) mg/dl Urine Opiates Screen (Neg) Ur Methadone, Qual (Neg) Acetaminophen < 3 L (10-30) ug/ml Urine Barbiturates (Neg) Ur Phencyclidine (PCP) (Neg) U Amphetamin/Meth Scrn (Neg) MDMA (Ecstasy) Screen (Neg) U Benzodiazepines Scrn (Neg) Ur Cocaine Metabolite (Neg) U Marijuana (THC) Screen (Neg) Ethyl Alcohol mg/dL < 10.0 (<10.0) mg/dl Anaplasma Smear A. phagocytophilum DNA Babesia Smear Babesia microti DNA PCR Lyme Disease IgG Ab (Negative) Lyme IgG (Western Blot) Lyme IgG 18 kDa Band Lyme IgG 23 kDa Band Lyme IgG 28 kDa Band Lyme IgG 30 kDa Band Lyme IgG 39 kDa Band Lyme IgG 41 kDa Band Lyme IgG 45 kDa Band Lyme IgG 58 kDa Band Lyme IgG 66 kDa Band Lyme IgG 93 kDa Band Lyme IgM Ab (WB) Lyme Disease IgM Ab (Negative) Lyme IgM 23 kDa Band Lyme IgM 39 kDa Band Lyme IgM 41 kDa Band Hepatitis A IgM Ab Pending Hep Bs Antigen Pending Hep Bs Ag Confirmation Pending Hep B Core IgM Ab Pending Hepatitis C Ab (EIA) Pending Hep C Ab Signal/Cutoff Pending SARS-CoV-2, RNA, NAAT (NEGATIVE) 03/31/23 03/31/23 03/31/23 Range/Units 19:37 19:37 19:37 WBC (4.8-10.8) K/ul RBC (4.70-6.10) M/uL Hgb (14.0-18.0) g/dl POC Hgb (14.0-18.0) g/dl Hct (42.0-52.0) % POC Hct (42-52) % MCV (80.0-100.0) fL MCH (25.0-34.0) pg MCHC (32.0-36.0) g/dL RDW Std Deviation (36.4-46.3) fL RDW Coeff of Dinorah (11.5-14.5) % Plt Count (130-400) K/uL MPV (9.4-12.4) fL Immature Gran % (Auto) % Neut % (Auto) % Lymph % (Auto) % Cobb % (Auto) % Eos % (Auto) % Baso % (Auto) % Neut # (Auto) (1.40-6.50) K/uL Lymph # (Auto) (1.2-3.4) K/uL Cobb # (Auto) (0.11-0.59) K/uL Eos # (Auto) (0-0.50) K/uL Baso # (Auto) (0-0.2) K/uL Immature Gran # (Auto) (0.01-0.20) K/uL Dohle Bodies Polychromasia Echinocytes PT (9.0-12.0) Seconds INR (0.9-1.1) APTT (21.0-31.0) Seconds PTT Ratio Sample Site POC pH (7.35-7.45) POC pCO2 (35-46) mmHg POC pO2 (80-95) mmHg POC HCO3 (19-24) amanda/L POC Base Excess (-9-1.8) amanda/L ABG pH (7.35-7.45) ABG pH (Temp Correct) (7.35-7.45) ABG pCO2 (35-46) mmHg ABG pCO2 (Temp Corrct (35-46) mmHg ABG pO2 (80-95) mmHg POC ABG pO2 at Pt Temp ABG HCO3 (19-24) mmol/L POC ABG O2 Sat (90-95) % ABG O2 Saturation (90-95) % ABG Base Excess (-9-1.8) mEq/L Donnell Test (Pos) Oxygen Given O2 Delivery Device POC Sodium (135-144) mmol/L Sodium (136-145) mmol/L POC Potassium (3.3-5.0) mmol/L Potassium (3.5-5.1) mmol/L POC Chloride (101-112) mmol/L Chloride (98-107) mmol/L Carbon Dioxide (21-32) mmol/L POC Total CO2 (24-31) mmol/L Anion Gap (3-11) POC Anion Gap (16-25) mmol/L POC BUN (7-18) mg/dl BUN (6-23) mg/dl Creatinine (0.6-1.4) mg/dl POC Creatinine (0.6-1.3) mg/dl Est Cr Clr Drug Dosing ml/min Est GFR ( Amer) ml/min Est GFR (Non-Af Amer) ml/min BUN/Creatinine Ratio (10-20) Glucose (70-99(Fasting)) mg/dl POC Glucose (70-99) mg/dl POC Glucose (other) (70-99) mg/dl Estimat Average Glucose mg/dl Hemoglobin A1c (4.5-5.6) % Lactate (0.4-2.0) mmol/L Calcium (8.6-10.3) mg/dl POC Ioniz Calcium Misha (1.12-1.32) mmol/l Ionized Calcium (1.12-1.32) mmol/L Phosphorus (2.5-4.9) mg/dl Magnesium (1.7-2.4) mg/dl Total Bilirubin (0.2-1.0) mg/dl Direct Bilirubin AST (13-39) U/L ALT (7-52) U/L Alkaline Phosphatase (34-104) U/L Lactate Dehydrogenase (86-244) U/L Total Creatine Kinase (30-223) U/L Troponin I High Sens (0-20) pg/ml Total Protein (6.0-8.3) gm/dl Albumin (3.4-5.0) gm/dl Globulin (2.5-4.0) gm/dl Albumin/Globulin Ratio (0.9-2) Triglycerides (0-150) mg/dl Lipase (11-82) U/L Procalcitonin (0-0.5) ng/ml TSH (0.300-4.500) uIu/ml Free T4 (0.61-1.60) ng/dl Urine Color Urine Appearance (Clear) Urine pH (4.5-7.5) Ur Specific [place] (1.000-1.030) Urine Protein (Negative) Urine Glucose (UA) (Negative) Urine Ketones (Negative) Urine Blood (Negative) Urine Nitrite (Negative) Urine Bilirubin (Negative) Urine Urobilinogen (Negative) Ur Leukocyte Esterase (Negative) Urine WBC (Auto) (0-5) /hpf Urine RBC (Auto) (0-4) /hpf U Hyaline Cast (Auto) (0-5) /lpf U Epithel Cells (Auto) (0-5) /lpf Urine Bacteria (Auto) (Negative) Nasal Screen MRSA (PCR) (Negative) Salicylates (3.0-30) mg/dl Urine Opiates Screen (Neg) Ur Methadone, Qual (Neg) Acetaminophen (10-30) ug/ml Urine Barbiturates (Neg) Ur Phencyclidine (PCP) (Neg) U Amphetamin/Meth Scrn (Neg) MDMA (Ecstasy) Screen (Neg) U Benzodiazepines Scrn (Neg) Ur Cocaine Metabolite (Neg) U Marijuana (THC) Screen (Neg) Ethyl Alcohol mg/dL (<10.0) mg/dl Anaplasma Smear A. phagocytophilum DNA Pending Babesia Smear Babesia microti DNA PCR Pending Lyme Disease IgG Ab Negative (Negative) Lyme IgG (Western Blot) Lyme IgG 18 kDa Band Lyme IgG 23 kDa Band Lyme IgG 28 kDa Band Lyme IgG 30 kDa Band Lyme IgG 39 kDa Band Lyme IgG 41 kDa Band Lyme IgG 45 kDa Band Lyme IgG 58 kDa Band Lyme IgG 66 kDa Band Lyme IgG 93 kDa Band Lyme IgM Ab (WB) Lyme Disease IgM Ab Positive A (Negative) Lyme IgM 23 kDa Band Lyme IgM 39 kDa Band Lyme IgM 41 kDa Band Hepatitis A IgM Ab Hep Bs Antigen Hep Bs Ag Confirmation Hep B Core IgM Ab Hepatitis C Ab (EIA) Hep C Ab Signal/Cutoff SARS-CoV-2, RNA, NAAT (NEGATIVE) 03/31/23 03/31/23 03/31/23 Range/Units 19:37 19:37 19:37 WBC (4.8-10.8) K/ul RBC (4.70-6.10) M/uL Hgb (14.0-18.0) g/dl POC Hgb (14.0-18.0) g/dl Hct (42.0-52.0) % POC Hct (42-52) % MCV (80.0-100.0) fL MCH (25.0-34.0) pg MCHC (32.0-36.0) g/dL RDW Std Deviation (36.4-46.3) fL RDW Coeff of Dinorah (11.5-14.5) % Plt Count (130-400) K/uL MPV (9.4-12.4) fL Immature Gran % (Auto) % Neut % (Auto) % Lymph % (Auto) % Cobb % (Auto) % Eos % (Auto) % Baso % (Auto) % Neut # (Auto) (1.40-6.50) K/uL Lymph # (Auto) (1.2-3.4) K/uL Cobb # (Auto) (0.11-0.59) K/uL Eos # (Auto) (0-0.50) K/uL Baso # (Auto) (0-0.2) K/uL Immature Gran # (Auto) (0.01-0.20) K/uL Dohle Bodies Polychromasia Echinocytes PT (9.0-12.0) Seconds INR (0.9-1.1) APTT (21.0-31.0) Seconds PTT Ratio Sample Site POC pH (7.35-7.45) POC pCO2 (35-46) mmHg POC pO2 (80-95) mmHg POC HCO3 (19-24) amanda/L POC Base Excess (-9-1.8) amanda/L ABG pH (7.35-7.45) ABG pH (Temp Correct) (7.35-7.45) ABG pCO2 (35-46) mmHg ABG pCO2 (Temp Corrct (35-46) mmHg ABG pO2 (80-95) mmHg POC ABG pO2 at Pt Temp ABG HCO3 (19-24) mmol/L POC ABG O2 Sat (90-95) % ABG O2 Saturation (90-95) % ABG Base Excess (-9-1.8) mEq/L Donnell Test (Pos) Oxygen Given O2 Delivery Device POC Sodium (135-144) mmol/L Sodium 139 (136-145) mmol/L POC Potassium (3.3-5.0) mmol/L Potassium 5.2 H D (3.5-5.1) mmol/L POC Chloride (101-112) mmol/L Chloride 105 (98-107) mmol/L Carbon Dioxide 16 L (21-32) mmol/L POC Total CO2 (24-31) mmol/L Anion Gap 18 H (3-11) POC Anion Gap (16-25) mmol/L POC BUN (7-18) mg/dl BUN 41 H (6-23) mg/dl Creatinine 2.05 H D (0.6-1.4) mg/dl POC Creatinine (0.6-1.3) mg/dl Est Cr Clr Drug Dosing 36.8 ml/min Est GFR ( Amer) 36.4 ml/min Est GFR (Non-Af Amer) 31.4 ml/min BUN/Creatinine Ratio 20.0 (10-20) Glucose 390 H* (70-99(Fasting)) mg/dl POC Glucose (70-99) mg/dl POC Glucose (other) (70-99) mg/dl Estimat Average Glucose mg/dl Hemoglobin A1c (4.5-5.6) % Lactate (0.4-2.0) mmol/L Calcium 10.2 (8.6-10.3) mg/dl POC Ioniz Calcium Misha (1.12-1.32) mmol/l Ionized Calcium (1.12-1.32) mmol/L Phosphorus (2.5-4.9) mg/dl Magnesium (1.7-2.4) mg/dl Total Bilirubin (0.2-1.0) mg/dl Direct Bilirubin 3.1 H AST (13-39) U/L ALT (7-52) U/L Alkaline Phosphatase (34-104) U/L Lactate Dehydrogenase 405 H (86-244) U/L Total Creatine Kinase 136 (30-223) U/L Troponin I High Sens (0-20) pg/ml Total Protein (6.0-8.3) gm/dl Albumin (3.4-5.0) gm/dl Globulin (2.5-4.0) gm/dl Albumin/Globulin Ratio (0.9-2) Triglycerides 143 (0-150) mg/dl Lipase (11-82) U/L Procalcitonin (0-0.5) ng/ml TSH (0.300-4.500) uIu/ml Free T4 (0.61-1.60) ng/dl Urine Color Urine Appearance (Clear) Urine pH (4.5-7.5) Ur Specific [place] (1.000-1.030) Urine Protein (Negative) Urine Glucose (UA) (Negative) Urine Ketones (Negative) Urine Blood (Negative) Urine Nitrite (Negative) Urine Bilirubin (Negative) Urine Urobilinogen (Negative) Ur Leukocyte Esterase (Negative) Urine WBC (Auto) (0-5) /hpf Urine RBC (Auto) (0-4) /hpf U Hyaline Cast (Auto) (0-5) /lpf U Epithel Cells (Auto) (0-5) /lpf Urine Bacteria (Auto) (Negative) Nasal Screen MRSA (PCR) (Negative) Salicylates (3.0-30) mg/dl Urine Opiates Screen (Neg) Ur Methadone, Qual (Neg) Acetaminophen (10-30) ug/ml Urine Barbiturates (Neg) Ur Phencyclidine (PCP) (Neg) U Amphetamin/Meth Scrn (Neg) MDMA (Ecstasy) Screen (Neg) U Benzodiazepines Scrn (Neg) Ur Cocaine Metabolite (Neg) U Marijuana (THC) Screen (Neg) Ethyl Alcohol mg/dL (<10.0) mg/dl Anaplasma Smear See Comment A. phagocytophilum DNA Babesia Smear See Comment Babesia microti DNA PCR Lyme Disease IgG Ab (Negative) Lyme IgG (Western Blot) Lyme IgG 18 kDa Band Lyme IgG 23 kDa Band Lyme IgG 28 kDa Band Lyme IgG 30 kDa Band Lyme IgG 39 kDa Band Lyme IgG 41 kDa Band Lyme IgG 45 kDa Band Lyme IgG 58 kDa Band Lyme IgG 66 kDa Band Lyme IgG 93 kDa Band Lyme IgM Ab (WB) Lyme Disease IgM Ab (Negative) Lyme IgM 23 kDa Band Lyme IgM 39 kDa Band Lyme IgM 41 kDa Band Hepatitis A IgM Ab Hep Bs Antigen Hep Bs Ag Confirmation Hep B Core IgM Ab Hepatitis C Ab (EIA) Hep C Ab Signal/Cutoff SARS-CoV-2, RNA, NAAT (NEGATIVE) 03/31/23 03/31/23 03/31/23 Range/Units 19:05 18:58 18:58 WBC (4.8-10.8) K/ul RBC (4.70-6.10) M/uL Hgb (14.0-18.0) g/dl POC Hgb (14.0-18.0) g/dl Hct (42.0-52.0) % POC Hct (42-52) % MCV (80.0-100.0) fL MCH (25.0-34.0) pg MCHC (32.0-36.0) g/dL RDW Std Deviation (36.4-46.3) fL RDW Coeff of Dinorah (11.5-14.5) % Plt Count (130-400) K/uL MPV (9.4-12.4) fL Immature Gran % (Auto) % Neut % (Auto) % Lymph % (Auto) % Cobb % (Auto) % Eos % (Auto) % Baso % (Auto) % Neut # (Auto) (1.40-6.50) K/uL Lymph # (Auto) (1.2-3.4) K/uL Cobb # (Auto) (0.11-0.59) K/uL Eos # (Auto) (0-0.50) K/uL Baso # (Auto) (0-0.2) K/uL Immature Gran # (Auto) (0.01-0.20) K/uL Dohle Bodies Polychromasia Echinocytes PT (9.0-12.0) Seconds INR (0.9-1.1) APTT (21.0-31.0) Seconds PTT Ratio Sample Site POC pH (7.35-7.45) POC pCO2 (35-46) mmHg POC pO2 (80-95) mmHg POC HCO3 (19-24) amanda/L POC Base Excess (-9-1.8) amanda/L ABG pH (7.35-7.45) ABG pH (Temp Correct) (7.35-7.45) ABG pCO2 (35-46) mmHg ABG pCO2 (Temp Corrct (35-46) mmHg ABG pO2 (80-95) mmHg POC ABG pO2 at Pt Temp ABG HCO3 (19-24) mmol/L POC ABG O2 Sat (90-95) % ABG O2 Saturation (90-95) % ABG Base Excess (-9-1.8) mEq/L Donnell Test (Pos) Oxygen Given O2 Delivery Device POC Sodium (135-144) mmol/L Sodium (136-145) mmol/L POC Potassium (3.3-5.0) mmol/L Potassium (3.5-5.1) mmol/L POC Chloride (101-112) mmol/L Chloride (98-107) mmol/L Carbon Dioxide (21-32) mmol/L POC Total CO2 (24-31) mmol/L Anion Gap (3-11) POC Anion Gap (16-25) mmol/L POC BUN (7-18) mg/dl BUN (6-23) mg/dl Creatinine (0.6-1.4) mg/dl POC Creatinine (0.6-1.3) mg/dl Est Cr Clr Drug Dosing ml/min Est GFR ( Amer) ml/min Est GFR (Non-Af Amer) ml/min BUN/Creatinine Ratio (10-20) Glucose (70-99(Fasting)) mg/dl POC Glucose 472 H* (70-99) mg/dl POC Glucose (other) (70-99) mg/dl Estimat Average Glucose mg/dl Hemoglobin A1c (4.5-5.6) % Lactate (0.4-2.0) mmol/L Calcium (8.6-10.3) mg/dl POC Ioniz Calcium Misha (1.12-1.32) mmol/l Ionized Calcium (1.12-1.32) mmol/L Phosphorus (2.5-4.9) mg/dl Magnesium (1.7-2.4) mg/dl Total Bilirubin (0.2-1.0) mg/dl Direct Bilirubin AST (13-39) U/L ALT (7-52) U/L Alkaline Phosphatase (34-104) U/L Lactate Dehydrogenase (86-244) U/L Total Creatine Kinase (30-223) U/L Troponin I High Sens (0-20) pg/ml Total Protein (6.0-8.3) gm/dl Albumin (3.4-5.0) gm/dl Globulin (2.5-4.0) gm/dl Albumin/Globulin Ratio (0.9-2) Triglycerides (0-150) mg/dl Lipase (11-82) U/L Procalcitonin (0-0.5) ng/ml TSH (0.300-4.500) uIu/ml Free T4 (0.61-1.60) ng/dl Urine Color Dark Yellow Urine Appearance Cloudy A (Clear) Urine pH 5.0 (4.5-7.5) Ur Specific [place] 1.028 (1.000-1.030) Urine Protein 1+ H (Negative) Urine Glucose (UA) 3+ H (Negative) Urine Ketones 1+ H (Negative) Urine Blood Negative (Negative) Urine Nitrite Negative (Negative) Urine Bilirubin 1+ H (Negative) Urine Urobilinogen Negative (Negative) Ur Leukocyte Esterase Negative (Negative) Urine WBC (Auto) 5-10 H (0-5) /hpf Urine RBC (Auto) 5-10 H (0-4) /hpf U Hyaline Cast (Auto) 5-10 H (0-5) /lpf U Epithel Cells (Auto) 20-30 H (0-5) /lpf Urine Bacteria (Auto) Negative (Negative) Nasal Screen MRSA (PCR) (Negative) Salicylates (3.0-30) mg/dl Urine Opiates Screen Neg (Neg) Ur Methadone, Qual Neg (Neg) Acetaminophen (10-30) ug/ml Urine Barbiturates Neg (Neg) Ur Phencyclidine (PCP) Neg (Neg) U Amphetamin/Meth Scrn Neg (Neg) MDMA (Ecstasy) Screen Neg (Neg) U Benzodiazepines Scrn Neg (Neg) Ur Cocaine Metabolite Neg (Neg) U Marijuana (THC) Screen Neg (Neg) Ethyl Alcohol mg/dL (<10.0) mg/dl Anaplasma Smear A. phagocytophilum DNA Babesia Smear Babesia microti DNA PCR Lyme Disease IgG Ab (Negative) Lyme IgG (Western Blot) Lyme IgG 18 kDa Band Lyme IgG 23 kDa Band Lyme IgG 28 kDa Band Lyme IgG 30 kDa Band Lyme IgG 39 kDa Band Lyme IgG 41 kDa Band Lyme IgG 45 kDa Band Lyme IgG 58 kDa Band Lyme IgG 66 kDa Band Lyme IgG 93 kDa Band Lyme IgM Ab (WB) Lyme Disease IgM Ab (Negative) Lyme IgM 23 kDa Band Lyme IgM 39 kDa Band Lyme IgM 41 kDa Band Hepatitis A IgM Ab Hep Bs Antigen Hep Bs Ag Confirmation Hep B Core IgM Ab Hepatitis C Ab (EIA) Hep C Ab Signal/Cutoff SARS-CoV-2, RNA, NAAT (NEGATIVE) 03/31/23 03/31/23 03/31/23 Range/Units 18:58 18:31 18:30 WBC (4.8-10.8) K/ul RBC (4.70-6.10) M/uL Hgb (14.0-18.0) g/dl POC Hgb (14.0-18.0) g/dl Hct (42.0-52.0) % POC Hct (42-52) % MCV (80.0-100.0) fL MCH (25.0-34.0) pg MCHC (32.0-36.0) g/dL RDW Std Deviation (36.4-46.3) fL RDW Coeff of Dinorah (11.5-14.5) % Plt Count (130-400) K/uL MPV (9.4-12.4) fL Immature Gran % (Auto) % Neut % (Auto) % Lymph % (Auto) % Cobb % (Auto) % Eos % (Auto) % Baso % (Auto) % Neut # (Auto) (1.40-6.50) K/uL Lymph # (Auto) (1.2-3.4) K/uL Cobb # (Auto) (0.11-0.59) K/uL Eos # (Auto) (0-0.50) K/uL Baso # (Auto) (0-0.2) K/uL Immature Gran # (Auto) (0.01-0.20) K/uL Dohle Bodies Polychromasia Echinocytes PT (9.0-12.0) Seconds INR (0.9-1.1) APTT (21.0-31.0) Seconds PTT Ratio Sample Site POC pH (7.35-7.45) POC pCO2 (35-46) mmHg POC pO2 (80-95) mmHg POC HCO3 (19-24) amanda/L POC Base Excess (-9-1.8) amanda/L ABG pH (7.35-7.45) ABG pH (Temp Correct) (7.35-7.45) ABG pCO2 (35-46) mmHg ABG pCO2 (Temp Corrct (35-46) mmHg ABG pO2 (80-95) mmHg POC ABG pO2 at Pt Temp ABG HCO3 (19-24) mmol/L POC ABG O2 Sat (90-95) % ABG O2 Saturation (90-95) % ABG Base Excess (-9-1.8) mEq/L Donnell Test (Pos) Oxygen Given O2 Delivery Device POC Sodium (135-144) mmol/L Sodium (136-145) mmol/L POC Potassium (3.3-5.0) mmol/L Potassium (3.5-5.1) mmol/L POC Chloride (101-112) mmol/L Chloride (98-107) mmol/L Carbon Dioxide (21-32) mmol/L POC Total CO2 (24-31) mmol/L Anion Gap (3-11) POC Anion Gap (16-25) mmol/L POC BUN (7-18) mg/dl BUN (6-23) mg/dl Creatinine (0.6-1.4) mg/dl POC Creatinine (0.6-1.3) mg/dl Est Cr Clr Drug Dosing ml/min Est GFR ( Amer) ml/min Est GFR (Non-Af Amer) ml/min BUN/Creatinine Ratio (10-20) Glucose (70-99(Fasting)) mg/dl POC Glucose (70-99) mg/dl POC Glucose (other) (70-99) mg/dl Estimat Average Glucose mg/dl Hemoglobin A1c (4.5-5.6) % Lactate 5.2 H* (0.4-2.0) mmol/L Calcium (8.6-10.3) mg/dl POC Ioniz Calcium Misha (1.12-1.32) mmol/l Ionized Calcium (1.12-1.32) mmol/L Phosphorus (2.5-4.9) mg/dl Magnesium (1.7-2.4) mg/dl Total Bilirubin (0.2-1.0) mg/dl Direct Bilirubin TNP AST (13-39) U/L ALT (7-52) U/L Alkaline Phosphatase (34-104) U/L Lactate Dehydrogenase (86-244) U/L Total Creatine Kinase (30-223) U/L Troponin I High Sens (0-20) pg/ml Total Protein (6.0-8.3) gm/dl Albumin (3.4-5.0) gm/dl Globulin (2.5-4.0) gm/dl Albumin/Globulin Ratio (0.9-2) Triglycerides (0-150) mg/dl Lipase (11-82) U/L Procalcitonin (0-0.5) ng/ml TSH 0.192 L (0.300-4.500) uIu/ml Free T4 1.06 (0.61-1.60) ng/dl Urine Color Urine Appearance (Clear) Urine pH (4.5-7.5) Ur Specific [place] (1.000-1.030) Urine Protein (Negative) Urine Glucose (UA) (Negative) Urine Ketones (Negative) Urine Blood (Negative) Urine Nitrite (Negative) Urine Bilirubin (Negative) Urine Urobilinogen (Negative) Ur Leukocyte Esterase (Negative) Urine WBC (Auto) (0-5) /hpf Urine RBC (Auto) (0-4) /hpf U Hyaline Cast (Auto) (0-5) /lpf U Epithel Cells (Auto) (0-5) /lpf Urine Bacteria (Auto) (Negative) Nasal Screen MRSA (PCR) (Negative) Salicylates (3.0-30) mg/dl Urine Opiates Screen (Neg) Ur Methadone, Qual (Neg) Acetaminophen (10-30) ug/ml Urine Barbiturates (Neg) Ur Phencyclidine (PCP) (Neg) U Amphetamin/Meth Scrn (Neg) MDMA (Ecstasy) Screen (Neg) U Benzodiazepines Scrn (Neg) Ur Cocaine Metabolite (Neg) U Marijuana (THC) Screen (Neg) Ethyl Alcohol mg/dL (<10.0) mg/dl Anaplasma Smear A. phagocytophilum DNA Babesia Smear Babesia microti DNA PCR Lyme Disease IgG Ab (Negative) Lyme IgG (Western Blot) Lyme IgG 18 kDa Band Lyme IgG 23 kDa Band Lyme IgG 28 kDa Band Lyme IgG 30 kDa Band Lyme IgG 39 kDa Band Lyme IgG 41 kDa Band Lyme IgG 45 kDa Band Lyme IgG 58 kDa Band Lyme IgG 66 kDa Band Lyme IgG 93 kDa Band Lyme IgM Ab (WB) Lyme Disease IgM Ab (Negative) Lyme IgM 23 kDa Band Lyme IgM 39 kDa Band Lyme IgM 41 kDa Band Hepatitis A IgM Ab Hep Bs Antigen Hep Bs Ag Confirmation Hep B Core IgM Ab Hepatitis C Ab (EIA) Hep C Ab Signal/Cutoff SARS-CoV-2, RNA, NAAT (NEGATIVE) 03/31/23 03/31/23 03/31/23 Range/Units 17:25 17:24 17:20 WBC (4.8-10.8) K/ul RBC (4.70-6.10) M/uL Hgb (14.0-18.0) g/dl POC Hgb (14.0-18.0) g/dl Hct (42.0-52.0) % POC Hct (42-52) % MCV (80.0-100.0) fL MCH (25.0-34.0) pg MCHC (32.0-36.0) g/dL RDW Std Deviation (36.4-46.3) fL RDW Coeff of Dinorah (11.5-14.5) % Plt Count (130-400) K/uL MPV (9.4-12.4) fL Immature Gran % (Auto) % Neut % (Auto) % Lymph % (Auto) % Cobb % (Auto) % Eos % (Auto) % Baso % (Auto) % Neut # (Auto) (1.40-6.50) K/uL Lymph # (Auto) (1.2-3.4) K/uL Cobb # (Auto) (0.11-0.59) K/uL Eos # (Auto) (0-0.50) K/uL Baso # (Auto) (0-0.2) K/uL Immature Gran # (Auto) (0.01-0.20) K/uL Dohle Bodies Polychromasia Echinocytes PT (9.0-12.0) Seconds INR (0.9-1.1) APTT (21.0-31.0) Seconds PTT Ratio Sample Site POC pH (7.35-7.45) POC pCO2 (35-46) mmHg POC pO2 (80-95) mmHg POC HCO3 (19-24) amanda/L POC Base Excess (-9-1.8) amanda/L ABG pH 7.23 L (7.35-7.45) ABG pH (Temp Correct) (7.35-7.45) ABG pCO2 19 L (35-46) mmHg ABG pCO2 (Temp Corrct (35-46) mmHg ABG pO2 65 L (80-95) mmHg POC ABG pO2 at Pt Temp ABG HCO3 8 L (19-24) mmol/L POC ABG O2 Sat (90-95) % ABG O2 Saturation 91.1 (90-95) % ABG Base Excess -17.0 L (-9-1.8) mEq/L Donnell Test Pos (Pos) Oxygen Given ROOM AIR O2 Delivery Device POC Sodium (135-144) mmol/L Sodium (136-145) mmol/L POC Potassium (3.3-5.0) mmol/L Potassium (3.5-5.1) mmol/L POC Chloride (101-112) mmol/L Chloride (98-107) mmol/L Carbon Dioxide (21-32) mmol/L POC Total CO2 (24-31) mmol/L Anion Gap (3-11) POC Anion Gap (16-25) mmol/L POC BUN (7-18) mg/dl BUN (6-23) mg/dl Creatinine (0.6-1.4) mg/dl POC Creatinine (0.6-1.3) mg/dl Est Cr Clr Drug Dosing ml/min Est GFR ( Amer) ml/min Est GFR (Non-Af Amer) ml/min BUN/Creatinine Ratio (10-20) Glucose (70-99(Fasting)) mg/dl POC Glucose (70-99) mg/dl POC Glucose (other) (70-99) mg/dl Estimat Average Glucose mg/dl Hemoglobin A1c (4.5-5.6) % Lactate 12.2 H* (0.4-2.0) mmol/L Calcium (8.6-10.3) mg/dl POC Ioniz Calcium Misha (1.12-1.32) mmol/l Ionized Calcium (1.12-1.32) mmol/L Phosphorus (2.5-4.9) mg/dl Magnesium (1.7-2.4) mg/dl Total Bilirubin (0.2-1.0) mg/dl Direct Bilirubin AST (13-39) U/L ALT (7-52) U/L Alkaline Phosphatase (34-104) U/L Lactate Dehydrogenase (86-244) U/L Total Creatine Kinase (30-223) U/L Troponin I High Sens (0-20) pg/ml Total Protein (6.0-8.3) gm/dl Albumin (3.4-5.0) gm/dl Globulin (2.5-4.0) gm/dl Albumin/Globulin Ratio (0.9-2) Triglycerides (0-150) mg/dl Lipase (11-82) U/L Procalcitonin (0-0.5) ng/ml TSH (0.300-4.500) uIu/ml Free T4 (0.61-1.60) ng/dl Urine Color Urine Appearance (Clear) Urine pH (4.5-7.5) Ur Specific [place] (1.000-1.030) Urine Protein (Negative) Urine Glucose (UA) (Negative) Urine Ketones (Negative) Urine Blood (Negative) Urine Nitrite (Negative) Urine Bilirubin (Negative) Urine Urobilinogen (Negative) Ur Leukocyte Esterase (Negative) Urine WBC (Auto) (0-5) /hpf Urine RBC (Auto) (0-4) /hpf U Hyaline Cast (Auto) (0-5) /lpf U Epithel Cells (Auto) (0-5) /lpf Urine Bacteria (Auto) (Negative) Nasal Screen MRSA (PCR) (Negative) Salicylates (3.0-30) mg/dl Urine Opiates Screen (Neg) Ur Methadone, Qual (Neg) Acetaminophen (10-30) ug/ml Urine Barbiturates (Neg) Ur Phencyclidine (PCP) (Neg) U Amphetamin/Meth Scrn (Neg) MDMA (Ecstasy) Screen (Neg) U Benzodiazepines Scrn (Neg) Ur Cocaine Metabolite (Neg) U Marijuana (THC) Screen (Neg) Ethyl Alcohol mg/dL (<10.0) mg/dl Anaplasma Smear A. phagocytophilum DNA Babesia Smear Babesia microti DNA PCR Lyme Disease IgG Ab (Negative) Lyme IgG (Western Blot) Lyme IgG 18 kDa Band Lyme IgG 23 kDa Band Lyme IgG 28 kDa Band Lyme IgG 30 kDa Band Lyme IgG 39 kDa Band Lyme IgG 41 kDa Band Lyme IgG 45 kDa Band Lyme IgG 58 kDa Band Lyme IgG 66 kDa Band Lyme IgG 93 kDa Band Lyme IgM Ab (WB) Lyme Disease IgM Ab (Negative) Lyme IgM 23 kDa Band Lyme IgM 39 kDa Band Lyme IgM 41 kDa Band Hepatitis A IgM Ab Hep Bs Antigen Hep Bs Ag Confirmation Hep B Core IgM Ab Hepatitis C Ab (EIA) Hep C Ab Signal/Cutoff SARS-CoV-2, RNA, NAAT NEGATIVE (NEGATIVE) 03/31/23 03/31/23 03/31/23 Range/Units 16:54 16:50 16:50 WBC (4.8-10.8) K/ul RBC (4.70-6.10) M/uL Hgb (14.0-18.0) g/dl POC Hgb 17.7 (14.0-18.0) g/dl Hct (42.0-52.0) % POC Hct 52 (42-52) % MCV (80.0-100.0) fL MCH (25.0-34.0) pg MCHC (32.0-36.0) g/dL RDW Std Deviation (36.4-46.3) fL RDW Coeff of Dinorah (11.5-14.5) % Plt Count (130-400) K/uL MPV (9.4-12.4) fL Immature Gran % (Auto) % Neut % (Auto) % Lymph % (Auto) % Cobb % (Auto) % Eos % (Auto) % Baso % (Auto) % Neut # (Auto) (1.40-6.50) K/uL Lymph # (Auto) (1.2-3.4) K/uL Cobb # (Auto) (0.11-0.59) K/uL Eos # (Auto) (0-0.50) K/uL Baso # (Auto) (0-0.2) K/uL Immature Gran # (Auto) (0.01-0.20) K/uL Dohle Bodies Polychromasia Echinocytes PT (9.0-12.0) Seconds INR (0.9-1.1) APTT (21.0-31.0) Seconds PTT Ratio Sample Site POC pH (7.35-7.45) POC pCO2 (35-46) mmHg POC pO2 (80-95) mmHg POC HCO3 (19-24) amanda/L POC Base Excess (-9-1.8) amanda/L ABG pH (7.35-7.45) ABG pH (Temp Correct) (7.35-7.45) ABG pCO2 (35-46) mmHg ABG pCO2 (Temp Corrct (35-46) mmHg ABG pO2 (80-95) mmHg POC ABG pO2 at Pt Temp ABG HCO3 (19-24) mmol/L POC ABG O2 Sat (90-95) % ABG O2 Saturation (90-95) % ABG Base Excess (-9-1.8) mEq/L Donnell Test (Pos) Oxygen Given O2 Delivery Device POC Sodium 133 L (135-144) mmol/L Sodium 133 L (136-145) mmol/L POC Potassium 7.2 H* (3.3-5.0) mmol/L Potassium 6.9 H* (3.5-5.1) mmol/L POC Chloride 105 (101-112) mmol/L Chloride 98 (98-107) mmol/L Carbon Dioxide 11 L (21-32) mmol/L POC Total CO2 13 L (24-31) mmol/L Anion Gap 24 H (3-11) POC Anion Gap 24.0 (16-25) mmol/L POC BUN 49 H (7-18) mg/dl BUN 42 H (6-23) mg/dl Creatinine 2.35 H (0.6-1.4) mg/dl POC Creatinine 2.2 H (0.6-1.3) mg/dl Est Cr Clr Drug Dosing 32.1 ml/min Est GFR ( Amer) 30.9 ml/min Est GFR (Non-Af Amer) 26.6 ml/min BUN/Creatinine Ratio 17.9 (10-20) Glucose 576 H* (70-99(Fasting)) mg/dl POC Glucose (70-99) mg/dl POC Glucose (other) 571 H* (70-99) mg/dl Estimat Average Glucose mg/dl Hemoglobin A1c (4.5-5.6) % Lactate (0.4-2.0) mmol/L Calcium 9.1 (8.6-10.3) mg/dl POC Ioniz Calcium Misha 1.06 L (1.12-1.32) mmol/l Ionized Calcium (1.12-1.32) mmol/L Phosphorus (2.5-4.9) mg/dl Magnesium 2.1 (1.7-2.4) mg/dl Total Bilirubin 6.1 H (0.2-1.0) mg/dl Direct Bilirubin TNP AST 319 H (13-39) U/L ALT 721 H (7-52) U/L Alkaline Phosphatase 142 H (34-104) U/L Lactate Dehydrogenase (86-244) U/L Total Creatine Kinase (30-223) U/L Troponin I High Sens 29.8 H (0-20) pg/ml Total Protein 6.9 (6.0-8.3) gm/dl Albumin 4.1 (3.4-5.0) gm/dl Globulin (2.5-4.0) gm/dl Albumin/Globulin Ratio (0.9-2) Triglycerides (0-150) mg/dl Lipase 2410 H (11-82) U/L Procalcitonin 25.05 H (0-0.5) ng/ml TSH (0.300-4.500) uIu/ml Free T4 (0.61-1.60) ng/dl Urine Color Urine Appearance (Clear) Urine pH (4.5-7.5) Ur Specific [place] (1.000-1.030) Urine Protein (Negative) Urine Glucose (UA) (Negative) Urine Ketones (Negative) Urine Blood (Negative) Urine Nitrite (Negative) Urine Bilirubin (Negative) Urine Urobilinogen (Negative) Ur Leukocyte Esterase (Negative) Urine WBC (Auto) (0-5) /hpf Urine RBC (Auto) (0-4) /hpf U Hyaline Cast (Auto) (0-5) /lpf U Epithel Cells (Auto) (0-5) /lpf Urine Bacteria (Auto) (Negative) Nasal Screen MRSA (PCR) (Negative) Salicylates (3.0-30) mg/dl Urine Opiates Screen (Neg) Ur Methadone, Qual (Neg) Acetaminophen (10-30) ug/ml Urine Barbiturates (Neg) Ur Phencyclidine (PCP) (Neg) U Amphetamin/Meth Scrn (Neg) MDMA (Ecstasy) Screen (Neg) U Benzodiazepines Scrn (Neg) Ur Cocaine Metabolite (Neg) U Marijuana (THC) Screen (Neg) Ethyl Alcohol mg/dL (<10.0) mg/dl Anaplasma Smear A. phagocytophilum DNA Babesia Smear Babesia microti DNA PCR Lyme Disease IgG Ab (Negative) Lyme IgG (Western Blot) Lyme IgG 18 kDa Band Lyme IgG 23 kDa Band Lyme IgG 28 kDa Band Lyme IgG 30 kDa Band Lyme IgG 39 kDa Band Lyme IgG 41 kDa Band Lyme IgG 45 kDa Band Lyme IgG 58 kDa Band Lyme IgG 66 kDa Band Lyme IgG 93 kDa Band Lyme IgM Ab (WB) Lyme Disease IgM Ab (Negative) Lyme IgM 23 kDa Band Lyme IgM 39 kDa Band Lyme IgM 41 kDa Band Hepatitis A IgM Ab Hep Bs Antigen Hep Bs Ag Confirmation Hep B Core IgM Ab Hepatitis C Ab (EIA) Hep C Ab Signal/Cutoff SARS-CoV-2, RNA, NAAT (NEGATIVE) 03/31/23 03/31/23 03/31/23 Range/Units 16:50 16:50 16:00 WBC 18.45 H (4.8-10.8) K/ul RBC 5.67 (4.70-6.10) M/uL Hgb 17.5 (14.0-18.0) g/dl POC Hgb (14.0-18.0) g/dl Hct 53.1 H (42.0-52.0) % POC Hct (42-52) % MCV 93.7 (80.0-100.0) fL MCH 30.9 (25.0-34.0) pg MCHC 33.0 (32.0-36.0) g/dL RDW Std Deviation 53.1 H (36.4-46.3) fL RDW Coeff of Dinorah 15.7 H (11.5-14.5) % Plt Count 210 (130-400) K/uL MPV 10.7 (9.4-12.4) fL Immature Gran % (Auto) 0.4 % Neut % (Auto) 90.6 % Lymph % (Auto) 3.1 % Cobb % (Auto) 5.7 % Eos % (Auto) 0.0 % Baso % (Auto) 0.2 % Neut # (Auto) 16.72 H (1.40-6.50) K/uL Lymph # (Auto) 0.57 L (1.2-3.4) K/uL Cobb # (Auto) 1.05 H (0.11-0.59) K/uL Eos # (Auto) 0.00 (0-0.50) K/uL Baso # (Auto) 0.03 (0-0.2) K/uL Immature Gran # (Auto) 0.08 (0.01-0.20) K/uL Dohle Bodies 1+ Polychromasia 1+ Echinocytes 2+ PT 13.0 H (9.0-12.0) Seconds INR 1.2 H (0.9-1.1) APTT 26.2 (21.0-31.0) Seconds PTT Ratio 0.9 Sample Site POC pH (7.35-7.45) POC pCO2 (35-46) mmHg POC pO2 (80-95) mmHg POC HCO3 (19-24) amanda/L POC Base Excess (-9-1.8) amanda/L ABG pH (7.35-7.45) ABG pH (Temp Correct) (7.35-7.45) ABG pCO2 (35-46) mmHg ABG pCO2 (Temp Corrct (35-46) mmHg ABG pO2 (80-95) mmHg POC ABG pO2 at Pt Temp ABG HCO3 (19-24) mmol/L POC ABG O2 Sat (90-95) % ABG O2 Saturation (90-95) % ABG Base Excess (-9-1.8) mEq/L Donnell Test (Pos) Oxygen Given O2 Delivery Device POC Sodium (135-144) mmol/L Sodium (136-145) mmol/L POC Potassium (3.3-5.0) mmol/L Potassium (3.5-5.1) mmol/L POC Chloride (101-112) mmol/L Chloride (98-107) mmol/L Carbon Dioxide (21-32) mmol/L POC Total CO2 (24-31) mmol/L Anion Gap (3-11) POC Anion Gap (16-25) mmol/L POC BUN (7-18) mg/dl BUN (6-23) mg/dl Creatinine (0.6-1.4) mg/dl POC Creatinine (0.6-1.3) mg/dl Est Cr Clr Drug Dosing ml/min Est GFR ( Amer) ml/min Est GFR (Non-Af Amer) ml/min BUN/Creatinine Ratio (10-20) Glucose (70-99(Fasting)) mg/dl POC Glucose (70-99) mg/dl POC Glucose (other) (70-99) mg/dl Estimat Average Glucose mg/dl Hemoglobin A1c (4.5-5.6) % Lactate (0.4-2.0) mmol/L Calcium (8.6-10.3) mg/dl POC Ioniz Calcium Misha (1.12-1.32) mmol/l Ionized Calcium (1.12-1.32) mmol/L Phosphorus (2.5-4.9) mg/dl Magnesium (1.7-2.4) mg/dl Total Bilirubin (0.2-1.0) mg/dl Direct Bilirubin AST (13-39) U/L ALT (7-52) U/L Alkaline Phosphatase (34-104) U/L Lactate Dehydrogenase (86-244) U/L Total Creatine Kinase (30-223) U/L Troponin I High Sens (0-20) pg/ml Total Protein (6.0-8.3) gm/dl Albumin (3.4-5.0) gm/dl Globulin (2.5-4.0) gm/dl Albumin/Globulin Ratio (0.9-2) Triglycerides (0-150) mg/dl Lipase (11-82) U/L Procalcitonin (0-0.5) ng/ml TSH (0.300-4.500) uIu/ml Free T4 (0.61-1.60) ng/dl Urine Color Urine Appearance (Clear) Urine pH (4.5-7.5) Ur Specific [place] (1.000-1.030) Urine Protein (Negative) Urine Glucose (UA) (Negative) Urine Ketones (Negative) Urine Blood (Negative) Urine Nitrite (Negative) Urine Bilirubin (Negative) Urine Urobilinogen (Negative) Ur Leukocyte Esterase (Negative) Urine WBC (Auto) (0-5) /hpf Urine RBC (Auto) (0-4) /hpf U Hyaline Cast (Auto) (0-5) /lpf U Epithel Cells (Auto) (0-5) /lpf Urine Bacteria (Auto) (Negative) Nasal Screen MRSA (PCR) Negative (Negative) Salicylates (3.0-30) mg/dl Urine Opiates Screen (Neg) Ur Methadone, Qual (Neg) Acetaminophen (10-30) ug/ml Urine Barbiturates (Neg) Ur Phencyclidine (PCP) (Neg) U Amphetamin/Meth Scrn (Neg) MDMA (Ecstasy) Screen (Neg) U Benzodiazepines Scrn (Neg) Ur Cocaine Metabolite (Neg) U Marijuana (THC) Screen (Neg) Ethyl Alcohol mg/dL (<10.0) mg/dl Anaplasma Smear A. phagocytophilum DNA Babesia Smear Babesia microti DNA PCR Lyme Disease IgG Ab (Negative) Lyme IgG (Western Blot) Lyme IgG 18 kDa Band Lyme IgG 23 kDa Band Lyme IgG 28 kDa Band Lyme IgG 30 kDa Band Lyme IgG 39 kDa Band Lyme IgG 41 kDa Band Lyme IgG 45 kDa Band Lyme IgG 58 kDa Band Lyme IgG 66 kDa Band Lyme IgG 93 kDa Band Lyme IgM Ab (WB) Lyme Disease IgM Ab (Negative) Lyme IgM 23 kDa Band Lyme IgM 39 kDa Band Lyme IgM 41 kDa Band Hepatitis A IgM Ab Hep Bs Antigen Hep Bs Ag Confirmation Hep B Core IgM Ab Hepatitis C Ab (EIA) Hep C Ab Signal/Cutoff SARS-CoV-2, RNA, NAAT (NEGATIVE) Diagnostic Findings Chest X-Ray 03/31/23 16:40 SINGLE VIEW CHEST CLINICAL HISTORY: Sepsis. FINDINGS: An AP, portable, upright chest radiograph is compared to study dated 07/31/2022 and correlated with chest CT dated 04/04/2022. The heart is enlarged noting atherosclerotic calcification of the thoracic aorta. The pulmonary vasculature is noncongested. There is chronic elevation of the right hemidiaphragm with bibasilar scarring/atelectasis. No airspace consolidation or large pleural effusion is identified. No pneumothorax is seen. The skeletal structures are osteopenic. The bony thorax is grossly intact. Surgical clips are noted in the left axilla. IMPRESSION: Cardiomegaly with no acute cardiopulmonary abnormality identified. ACT 112: Negative or not required by law. Electronically signed by: Stephen Devlin M.D. 03/31/2023 5:36 PM Abdomen/Pelvis CT 03/31/23 17:45 CT SCAN OF THE ABDOMEN AND PELVIS WITHOUT IV CONTRAST CLINICAL HISTORY: Sepsis. Change in mental status. COMPARISON STUDY: Abdominal CT dated 07/29/2022. TECHNIQUE: CT scan of the abdomen and pelvis is performed from the lung bases to the proximal femora. Images are reviewed in the axial, sagittal, and coronal planes. IV contrast was not administered for this examination as per the referring clinician. Note that the examination was performed and significantly suboptimal fashion without oral and IV contrast. The examination is degraded by motion artifact, as well as by streak artifact from the arms which could not be elevated above the abdomen. A dose lowering technique was utilized adhering to the principles of ALARA. CT DOSE: 1703.59 mGy.cm FINDINGS: Lung bases: The heart is enlarged and without pericardial effusion. The coronary arteries are densely calcified. Evaluation of the lung bases is degraded by motion artifact. No airspace consolidation or pleural effusion is identified. A 3 mm pleural-based nodule in the right middle lobe on image #15 is unchanged. There is a small to moderate hiatal hernia. Gynecomastia is noted. Liver: Evaluation of the liver is compromised by streak artifact. The unenhanced liver is appears normal in size, contour, and attenuation. There is no intrahep atic biliary ductal dilatation. Gallbladder: Unremarkable. Spleen: Normal in size and attenuation. Pancreas: The unenhanced pancreas appears edematous. There is peripancreatic inflammation and fluid, and the appearance is typical for acute pancreatitis. No organized peripancreatic fluid collection is identified. Adrenal glands: Unremarkable. Kidneys: The unenhanced kidneys demonstrate mild cortical atrophy and are without hydronephrosis. There are no renal calculi identified. A 2.8 cm cyst arises from the left lower pole. Abdominal vasculature: There is advanced atherosclerotic calcification and ectasia of the abdominal aorta. 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 Bowel: There is mild colonic diverticulosis without CT evidence of acute diverticulitis. Moderate fecal attention is seen throughout the colon. No bowel obstruction is identified. The appendix is well-visualized and normal. Peritoneum: No discrete peritoneal free air is seen. There is a small volume of abdominopelvic ascites. There is a large fat-containing umbilical hernia. Lymphadenopathy: None. Pelvic viscera: The prostate gland is markedly enlarged and heterogeneous. The bladder is distended, and the wall is thickened/trabeculated indicating chronic outlet obstruction. There is a large fat-containing left inguinal hernia. There is evidence of previous right inguinal herniorrhaphy. Skeletal structures: The skeletal structures are osteopenic. Moderate lumbosacral spondylosis is observed. No lytic or blastic lesions are seen. There are chronic/healed right-sided rib fractures. IMPRESSION: 1. Suboptimal examination without oral and IV contrast. There is also streak and motion artifact. 2. Findings are typical for acute pancreatitis. Correlate with clinical and laboratory findings. 3. Small volume of abdominopelvic ascites. 4. Cardiomegaly with advanced coronary artery atherosclerosis. 5. Large fat-containing left inguinal hernia. 6. Marked prostatomegaly with evidence of chronic bladder outlet obstruction. 7. 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 8. Additional findings as above. ACT 112: Negative or not required by law. Electronically signed by: Stephen Devlin M.D. 03/31/2023 6:[address] 03/31/23 17:45 CT SCAN OF THE BRAIN WITHOUT IV CONTRAST CLINICAL HISTORY: Change in mental status. Sepsis. COMPARISON STUDY: CT of the brain dated 07/29/2022 TECHNIQUE: Unenhanced axial CT scan of the brain is performed from the vertex to the skull base. A dose lowering technique was utilized adhering to the principles of ALARA. FINDINGS: Brain parenchyma: There is age-related involutional change noting mild subcortical and periventricular microangiopathic disease. There is no hemorrhage, mass effect, or evidence of acute territorial ischemia by CT criteria. 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 There is a chronic lacunar infarct in the left thalamus. Garcia-white matter differentiation is preserved. No extra-axial fluid collection is seen. Ventricles, sulci, cisterns: Prominent secondary to involutional change. Intracranial vasculature: There is atherosclerotic calcification of the cavernous carotid and vertebral arteries. Calvarium: Unremarkable. Sinuses and mastoids: The visualized paranasal sinuses are clear. The mastoid air cells are well pneumatized. Orbits: The bony orbits are grossly intact. IMPRESSION: There is no hemorrhage, mass effect, or evidence of acute territorial ischemia by CT criteria. ACT 112: Negative or not required by law. Electronically signed by: Stephen Devlin M.D. 03/31/2023 6:29 PM Liver Ultrasound 03/31/23 19:50 ULTRASOUND RIGHT UPPER QUADRANT ABDOMEN CLINICAL HISTORY: Elevated hepatic transaminases. COMPARISON STUDY: Abdominal CT dated 03/31/2023 TECHNIQUE: Real-time, grayscale, and color flow sonography of the right upper quadrant of the abdomen was performed. Images are reviewed in the transverse and longitudinal planes. FINDINGS: Liver: The liver is normal in size and heterogeneous in echotexture. There is no intrahepatic biliary ductal dilatation. The main portal vein is patent. Gallbladder: The gallbladder is normal in appearance. No gallstones are identified. There is no gallbladder wall thickening or pericholecystic fluid. A sonographic Dykes's sign could not be assessed. The common bile duct measures up to 0.4 cm in diameter. Pancreas: Not visualized due to bowel gas. Right kidney: Survey images of the right kidney demonstrate cortical atrophy. Echotexture is normal. There is no hydronephrosis. Ascites: There is trace perihepatic ascites. IMPRESSION: 1. No gallstones are identified. 2. Heterogeneous liver with trace perihepatic ascites. 3. Nonvisualization of the pancreas. ACT 112: Negative or not required by law. Electronically signed by: Stephen Devlin M.D. 03/31/2023 9:56 PM Portal Vein US 03/31/23 19:50 DOPPLER ULTRASOUND OF THE HEPATIC AND PORTAL VASCULATURE CLINICAL HISTORY: Elevated hepatic transaminases. Pancreatitis. COMPARISON STUDY: Abdominal CT and abdominal ultrasound performed the same day 03/31/2023. FINDINGS: Real-time grayscale and color Doppler sonography of the hepatic and portal vasculature is performed. The main portal vein and right portal vein are patent with normal direction of flow. Velocities in the main portal vein measuring up to 26 cm/s. The left portal vein was not visualized. The right hepatic vein and the middle hepatic vein are patent with preservation of the normal hepatic venous waveforms. The left hepatic vein was not visualized. The hepatic artery is patent with velocities measuring up to 106 cm/s. The abdominal aorta and IVC were not visualized due to overlying bowel gas. The splenic vein was not visualized. IMPRESSION: The visualized hepatic and portal veins are patent with normal direction of flow as detailed above. The left lobe vessels were not well- visualized. Electronically signed by: Stephen Devlin M.D. 03/31/2023 10:00 PM (1) Acute pancreatitis Acute pancreatitis complication: unspecified Pancreatitis type: unspecified pancreatitis type Qualified Code(s): K85.90 - Acute pancreatitis without necrosis or infection, unspecified
--- NOTE | 2023-04-01 10:00 | Critical Care Progress Note ---
Date of Service April 01, 2023 Assessment & Plan (1) Acute pancreatitis: Plan: Reason Critically Ill: 72-year-old male presents to the ICU with multisystem organ dysfunction including acute pancreatitis, acute hepatitis, hypoxic respiratory failure, DKA, metabolic acidosis, and GUILLERMINA. Neuro - [facility] ICU: Negative Encephalopathyimproving History of TIAcontinue ASA, Plavix Cardiac - Elevated troponinmild elevation of troponin likely demand ischemia in the setting of hypoxia with GUILLERMINA. HLDcontinue statin Respiratory - Acute hypoxic respiratory failureimproving, decreased oxygen requirement -suspect largely VQ mismatch from pancreatits GI - Acute pancreatitispossibly ideopathic -lipase downtrending - triglycerides WNL Acute hepatitis unclear etiology at this time -Liver ultrasound with no evidence of gallstones, showing heterogeneous liver with trace perihepatic ascites -Portal vein US with patent hepatic and portal veins with normal directional flow -No significant alcohol history -Hepatitis panel pending -Acetaminophen and salicylate levels negative -LFTs improving -GI consult reviewed RENAL/LYTES - AKIimproving - BPHcontinue tamsulosin. Bender for strict I's and O' - D/C bender per protocol, once patient can follow instructions may d/c and track I/O with urinal ENDO - DKA resolved - transition off infusion Clear liquid diet - advance as tolerated HEME - H&H stable, monitor routine CBC ID - Doubtful this represents sepsis -Blood cultures pending: likely discontinue in 48 hours -Hx of lyme exposure: peripheral smear negative - Hepatits serology pending LINES/IV ACCESS - Peripheral IVs DVT PROPHYLAXIS - SCDs, transition to lovenox in am after heparin this evening Dispo: stable for downgrade out of ICU (2) Acute hepatitis: (3) Acute respiratory failure with hypoxia: (4) Type 2 diabetes mellitus: (5) High anion gap metabolic acidosis: (6) SIRS (systemic inflammatory response syndrome): (7) DKA (diabetic ketoacidosis): (8) GUILLERMINA (acute kidney injury): (9) Acute hyperkalemia: Admission and Anticipated Discharge Date Admission Date: March 31, 2023 Subjective Patient denies pain however he is unable to tell me exact date or month. He is aware he is in a hospital in [place]. Physical Exam Physical Exam: General: Alert. nontoxic. Oriented to self and location not oriented to time Skin: Warm, dry, Head: Atraumatic Ears, nose, mouth and throat: airway patent Cardiovascular: Normal peripheral perfusion Respiratory: no respiratory distress Gastrointestinal: Non distended, hypoactive bowel sounds, tenderness with deep palpation, no guarding no rebound Musculoskeletal: No deformity Results & Data Results & Data Vital Signs (Past 12 Hours) Vital Signs Temp Pulse Resp BP Pulse Ox O2 Del Method O2 Flow Rate 04/01/23 06:27 96 Nasal Cannula 2 04/01/23 06:00 91 Room Air 04/01/23 06:27 91 Nasal Cannula 0 04/01/23 06:00 Room Air 04/01/23 03:00 Nasal Cannula 04/01/23 03:00 97 Nasal Cannula 2 04/01/23 03:50 37.2 C 77 35 H 97 4 04/01/23 03:40 37.2 C 78 32 H 97 04/01/23 03:30 36.9 C 78 37 H 95 04/01/23 03:20 36.9 C 81 35 H 95 04/01/23 03:10 36.9 C 83 33 H 94 04/01/23 03:00 36.9 C 85 33 H 95 04/01/23 03:00 124/76 04/01/23 02:50 36.7 C 79 35 H 97 04/01/23 02:40 36.6 C 82 36 H 96 04/01/23 02:37 36.6 C 86 38 H 96 04/01/23 02:37 133/76 04/01/23 02:30 36.6 C 84 35 H 96 04/01/23 02:20 37.3 C 76 35 H 98 04/01/23 02:10 37.1 C 86 34 H 98 04/01/23 02:01 153/74 H 04/01/23 02:01 37.1 C 78 36 H 99 04/01/23 02:00 37.5 C 79 31 H 98 04/01/23 01:50 37.5 C 96 H 34 H 100 04/01/23 01:40 37.5 C 74 37 H 100 04/01/23 01:30 37.5 C 77 36 H 99 04/01/23 01:20 37.5 C 83 34 H 97 04/01/23 01:10 37.5 C 81 36 H 96 04/01/23 01:00 37.5 C 98 H 36 H 96 04/01/23 01:00 142/87 H 04/01/23 00:50 37.5 C 36 H 95 04/01/23 00:40 37.5 C 89 34 H 95 04/01/23 00:30 37.4 C 83 33 H 95 04/01/23 00:20 37.4 C 85 36 H 95 04/01/23 00:10 37.4 C 85 32 H 96 04/01/23 02:00 Nasal Cannula 04/01/23 01:00 Nasal Cannula 04/01/23 00:00 Nasal Cannula 03/31/23 23:40 80 03/31/23 22:00 88 L Nasal Cannula 6 04/01/23 00:00 37.4 C 90 35 H 95 04/01/23 00:00 134/78 03/31/23 23:50 37.3 C 86 32 H 96 03/31/23 23:40 37.4 C 82 34 H 96 03/31/23 23:30 37.4 C 93 H 41 H 97 03/31/23 23:20 37.4 C 86 34 H 97 03/31/23 23:10 37.1 C 81 32 H 100 03/31/23 23:00 37.4 C 80 36 H 93 03/31/23 23:00 123/77 03/31/23 22:50 37.4 C 82 38 H 96 03/31/23 22:40 37.4 C 87 41 H 97 03/31/23 22:30 37.3 C 85 37 H 98 03/31/23 22:20 37.3 C 77 37 H 92 03/31/23 22:00 Nasal Cannula 10 03/31/23 22:10 37.2 C 87 34 H 91 03/31/23 22:00 37.2 C 85 35 H 93 03/31/23 22:00 134/81 Critical Care Results & Data Vital Signs (Past 12 Hours) Vital Signs Temp Pulse Resp BP Pulse Ox O2 Del Method O2 Flow Rate 04/01/23 06:27 96 Nasal Cannula 2 04/01/23 06:00 91 Room Air 04/01/23 06:27 91 Nasal Cannula 0 04/01/23 06:00 Room Air 04/01/23 03:00 Nasal Cannula 04/01/23 03:00 97 Nasal Cannula 2 04/01/23 03:50 37.2 C 77 35 H 97 4 04/01/23 03:40 37.2 C 78 32 H 97 04/01/23 03:30 36.9 C 78 37 H 95 04/01/23 03:20 36.9 C 81 35 H 95 04/01/23 03:10 36.9 C 83 33 H 94 04/01/23 03:00 36.9 C 85 33 H 95 04/01/23 03:00 124/76 04/01/23 02:50 36.7 C 79 35 H 97 04/01/23 02:40 36.6 C 82 36 H 96 04/01/23 02:37 36.6 C 86 38 H 96 04/01/23 02:37 133/76 04/01/23 02:30 36.6 C 84 35 H 96 04/01/23 02:20 37.3 C 76 35 H 98 04/01/23 02:10 37.1 C 86 34 H 98 04/01/23 02:01 153/74 H 04/01/23 02:01 37.1 C 78 36 H 99 04/01/23 02:00 37.5 C 79 31 H 98 04/01/23 01:50 37.5 C 96 H 34 H 100 04/01/23 01:40 37.5 C 74 37 H 100 04/01/23 01:30 37.5 C 77 36 H 99 04/01/23 01:20 37.5 C 83 34 H 97 04/01/23 01:10 37.5 C 81 36 H 96 04/01/23 01:00 37.5 C 98 H 36 H 96 04/01/23 01:00 142/87 H 04/01/23 00:50 37.5 C 36 H 95 04/01/23 00:40 37.5 C 89 34 H 95 04/01/23 00:30 37.4 C 83 33 H 95 04/01/23 00:20 37.4 C 85 36 H 95 04/01/23 00:10 37.4 C 85 32 H 96 04/01/23 02:00 Nasal Cannula 04/01/23 01:00 Nasal Cannula 04/01/23 00:00 Nasal Cannula 03/31/23 23:40 80 04/01/23 00:00 37.4 C 90 35 H 95 04/01/23 00:00 134/78 03/31/23 23:50 37.3 C 86 32 H 96 03/31/23 23:40 37.4 C 82 34 H 96 03/31/23 23:30 37.4 C 93 H 41 H 97 03/31/23 23:20 37.4 C 86 34 H 97 03/31/23 23:10 37.1 C 81 32 H 100 03/31/23 23:00 37.4 C 80 36 H 93 03/31/23 23:00 123/77 Lab & Micro Results (Past 24 Hours) RBC 4.88 M/uL (4.70-6.10) 04/01/23 WBC 13.39 K/ul (4.8-10.8) H 04/01/23 Hgb 15.1 g/dl (14.0-18.0) 04/01/23 Hct 43.3 % (42.0-52.0) 04/01/23 MCV 88.7 fL (80.0-100.0) 04/01/23 MCH 30.9 pg (25.0-34.0) 04/01/23 MCHC 34.9 g/dL (32.0-36.0) 04/01/23 RDW Standard Deviation 49.4 fL (36.4-46.3) H 04/01/23 RDW Coefficient of Variation 15.2 % (11.5-14.5) H 04/01/23 Plt Count 157 K/uL (130-400) 04/01/23 MPV 10.0 fL (9.4-12.4) 04/01/23 Neutrophils (%) (Auto) 87.2 % 04/01/23 Lymphocytes (%) (Auto) 6.9 % 04/01/23 Monocytes # (Auto) 0.69 K/uL (0.11-0.59) H 04/01/23 Eosinophils # (Auto) 0.00 K/uL (0-0.50) 04/01/23 Immature Granulocyte % (Auto) 0.4 % 04/01/23 Neutrophils # (Auto) 11.69 K/uL (1.40-6.50) H 04/01/23 Lymphocytes # (Auto) 0.92 K/uL (1.2-3.4) L 04/01/23 Monocytes # (Auto) 0.69 K/uL (0.11-0.59) H 04/01/23 Eosinophils # (Auto) 0.00 K/uL (0-0.50) 04/01/23 Basophils # (Auto) 0.04 K/uL (0-0.2) 04/01/23 Immature Granulocyte # (Auto) 0.05 K/uL (0.01-0.20) 3 Polychromasia 1+ 03/31/23 Echinocytes 2+ 03/31/23 Dohle Bodies 1+ 03/31/23 Na 139 mmol/L (136-145) 04/01/23 K 4.0 mmol/L (3.5-5.1) 04/01/23 Cl 109 mmol/L (98-107) H 04/01/23 CO2 20 mmol/L (21-32) L 04/01/23 Anion Gap 10 (3-11) 04/01/23 BUN 39 mg/dl (6-23) H 04/01/23 Creatinine 1.35 mg/dl (0.6-1.4) 04/01/23 Estimated GFR ( Amer) 60.4 ml/min 04/01/23 Estimated GFR (Non-Af Amer) 52.1 ml/min 04/01/23 BUN/Creatinine Ratio 28.9 (10-20) H 04/01/23 Glu 143 mg/dl (70-99(Fasting)) H 04/01/23 Ca 8.6 mg/dl (8.6-10.3) 04/01/23 Phosphorus Level 3.1 mg/dl (2.5-4.9) 04/01/23 Total Bilirubin 4.0 mg/dl (0.2-1.0) H 04/01/23 Direct Bilirubin 3.1 mg/dl (0-0.2) H 03/31/23 AST 137 U/L (13-39) H 04/01/23 ALT 450 U/L (7-52) H 04/01/23 Alkaline Phosphatase 101 U/L (34-104) 04/01/23 TP 5.6 gm/dl (6.0-8.3) L 04/01/23 Albumin 3.4 gm/dl (3.4-5.0) 04/01/23 Globulin 2.2 gm/dl (2.5-4.0) L 04/01/23 Albumin/Globulin Ratio 1.5 (0.9-2) 04/01/23 Lactate Dehydrogenase 405 U/L (86-244) H 03/31/23 Mg 1.9 mg/dl (1.7-2.4) 04/01/23 04:50 Calcium Level 8.6 mg/dl (8.6-10.3) 04/01/23 04:50 Ionized Calcium 1.12 mmol/L (1.12-1.32) 04/01/23 00:17 Prothromb Time International Ratio 1.3 (0.9-1.1) H 04/01/23 04 :50 Arterial Blood pH 7.23 (7.35-7.45) L 03/31/23 17:24 Arterial Blood Partial Pressure CO2 19 mmHg (35-46) L 03/31/23 17:24 Arterial Blood Partial Pressure O2 65 mmHg (80-95) L 03/31/23 1 7:24 Arterial Blood HCO3 8 mmol/L (19-24) L 03/31/23 17:24 Arterial Blood Base Excess -17.0 mEq/L (-9-1.8) L 03/31/23 17:2 4 Arterial Blood Oxygen Saturation 91.1 % (90-95) 03/31/23 17:24 Blood Gas Oxygen Given ROOM AIR 03/31/23 17:24 Donnell Test Pass 03/31/23 21:27 Diagnostic Findings (Past 24 Hours) Chest X-Ray 03/31/23 16:40 SINGLE VIEW CHEST CLINICAL HISTORY: Sepsis. FINDINGS: An AP, portable, upright chest radiograph is compared to study dated 07/31/2022 and correlated with chest CT dated 04/04/2022. The heart is enlarged noting atherosclerotic calcification of the thoracic aorta. The pulmonary vasculature is noncongested. There is chronic elevation of the right hemidiaphragm with bibasilar scarring/atelectasis. No airspace consolidation or large pleural effusion is identified. No pneumothorax is seen. The skeletal structures are osteopenic. The bony thorax is grossly intact. Surgical clips are noted in the left axilla. IMPRESSION: Cardiomegaly with no acute cardiopulmonary abnormality identified. ACT 112: Negative or not required by law. Electronically signed by: Stephen Devlin M.D. 03/31/2023 5:36 PM Abdomen/Pelvis CT 03/31/23 17:45 CT SCAN OF THE ABDOMEN AND PELVIS WITHOUT IV CONTRAST CLINICAL HISTORY: Sepsis. Change in mental status. COMPARISON STUDY: Abdominal CT dated 07/29/2022. TECHNIQUE: CT scan of the abdomen and pelvis is performed from the lung bases to the proximal femora. Images are reviewed in the axial, sagittal, and coronal planes. IV contrast was not administered for this examination as per the referring clinician. Note that the examination was performed and significantly suboptimal fashion without oral and IV contrast. The examination is degraded by motion artifact, as well as by streak artifact from the arms which could not be elevated above the abdomen. A dose lowering technique was utilized adhering to the principles of ALARA. CT DOSE: 1703.59 mGy.cm FINDINGS: Lung bases: The heart is enlarged and without pericardial effusion. The coronary arteries are densely calcified. Evaluation of the lung bases is degraded by motion artifact. No airspace consolidation or pleural effusion is identified. A 3 mm pleural-based nodule in the right middle lobe on image #15 is unchanged. There is a small to moderate hiatal hernia. Gynecomastia is noted. Liver: Evaluation of the liver is compromised by streak artifact. The unenhanced liver is appears normal in size, contour, and attenuation. There is no intrahepatic biliary ductal dilatation. Gallbladder: Unremarkable. Spleen: Normal in size and attenuation. Pancreas: The unenhanced pancreas appears edematous. There is peripancreatic inflammation and fluid, and the appearance is typical for acute pancreatitis. No organized peripancreatic fluid collection is identified. Adrenal glands: Unremarkable. Kidneys: The unenhanced kidneys demonstrate mild cortical atrophy and are without hydronephrosis. There are no renal calculi identified. A 2.8 cm cyst arises from the left lower pole. Abdominal vasculature: There is advanced atherosclerotic calcification and ectasia of the abdominal aorta. 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 Bowel: There is mild colonic diverticulosis without CT evidence of acute diverticulitis. Moderate fecal attention is seen throughout the colon. No bowel obstruction is identified. The appendix is well-visualized and normal. Peritoneum: No discrete peritoneal free air is seen. There is a small volume of abdominopelvic ascites. There is a large fat-containing umbilical hernia. Lymphadenopathy: None. Pelvic viscera: The prostate gland is markedly enlarged and heterogeneous. The bladder is distended, and the wall is thickened/trabeculated indicating chronic outlet obstruction. There is a large fat-containing left inguinal hernia. There is evidence of previous right inguinal herniorrhaphy. Skeletal structures: The skeletal structures are osteopenic. Moderate lumbosacral spondylosis is observed. No lytic or blastic lesions are seen. There are chronic/healed right-sided rib fractures. IMPRESSION: 1. Suboptimal examination without oral and IV contrast. There is also streak and motion artifact. 2. Findings are typical for acute pancreatitis. Correlate with clinical and laboratory findings. 3. Small volume of abdominopelvic ascites. 4. Cardiomegaly with advanced coronary artery atherosclerosis. 5. Large fat-containing left inguinal hernia. 6. Marked prostatomegaly with evidence of chronic bladder outlet obstruction. 7. 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 8. Additional findings as above. ACT 112: Negative or not required by law. Electronically signed by: Stephen Devlin M.D. 03/31/2023 6:[address] 03/31/23 17:45 CT SCAN OF THE BRAIN WITHOUT IV CONTRAST CLINICAL HISTORY: Change in mental status. Sepsis. COMPARISON STUDY: CT of the brain dated 07/29/2022 TECHNIQUE: Unenhanced axial CT scan of the brain is performed from the vertex to the skull base. A dose lowering technique was utilized adhering to the principles of ALARA. FINDINGS: Brain parenchyma: There is age-related involutional change noting mild subcortical and periventricular microangiopathic disease. There is no hemorrhage, mass effect, or evidence of acute territorial ischemia by CT criteria. 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 There is a chronic lacunar infarct in the left thalamus. Garcia-white matter differentiation is preserved. No extra-axial fluid collection is seen. Ventricles, sulci, cisterns: Prominent secondary to involutional change. Intracranial vasculature: There is atherosclerotic calcification of the cavernous carotid and vertebral arteries. Calvarium: Unremarkable. Sinuses and mastoids: The visualized paranasal sinuses are clear. The mastoid air cells are well pneumatized. Orbits: The bony orbits are grossly intact. IMPRESSION: There is no hemorrhage, mass effect, or evidence of acute territorial ischemia by CT criteria. ACT 112: Negative or not required by law. Electronically signed by: Stephen Devlin M.D. 03/31/2023 6:29 PM Liver Ultrasound 03/31/23 19:50 ULTRASOUND RIGHT UPPER QUADRANT ABDOMEN CLINICAL HISTORY: Elevated hepatic transaminases. COMPARISON STUDY: Abdominal CT dated 03/31/2023 TECHNIQUE: Real-time, grayscale, and color flow sonography of the right upper quadrant of the abdomen was performed. Images are reviewed in the transverse and longitudinal planes. FINDINGS: Liver: The liver is normal in size and heterogeneous in echotexture. There is no intrahepatic biliary ductal dilatation. The main portal vein is patent. Gallbladder: The gallbladder is normal in appearance. No gallstones are identified. There is no gallbladder wall thickening or pericholecystic fluid. A sonographic Dykes's sign could not be assessed. The common bile duct measures up to 0.4 cm in diameter. Pancreas: Not visualized due to bowel gas. Right kidney: Survey images of the right kidney demonstrate cortical atrophy. Echotexture is normal. There is no hydronephrosis. Ascites: There is trace perihepatic ascites. IMPRESSION: 1. No gallstones are identified. 2. Heterogeneous liver with trace perihepatic ascites. 3. Nonvisualization of the pancreas. ACT 112: Negative or not required by law. Electronically signed by: Stephen Devlin M.D. 03/31/2023 9:56 PM Portal Vein US 03/31/23 19:50 DOPPLER ULTRASOUND OF THE HEPATIC AND PORTAL VASCULATURE CLINICAL HISTORY: Elevated hepatic transaminases. Pancreatitis. COMPARISON STUDY: Abdominal CT and abdominal ultrasound performed the same day 03/31/2023. FINDINGS: Real-time grayscale and color Doppler sonography of the hepatic and portal vasculature is performed. The main portal vein and right portal vein are patent with normal direction of flow. Velocities in the main portal vein measuring up to 26 cm/s. The left portal vein was not visualized. The right hepatic vein and the middle hepatic vein are patent with preservation of the normal hepatic venous waveforms. The left hepatic vein was not visualized. The hepatic artery is patent with velocities measuring up to 106 cm/s. The abdominal aorta and IVC were not visualized due to overlying bowel gas. The splenic vein was not visualized. IMPRESSION: The visualized hepatic and portal veins are patent with normal direction of flow as detailed above. The left lobe vessels were not well- visualized. Electronically signed by: Stephen Devlin M.D. 03/31/2023 10:00 PM I & O Totals 24 Hours 03/31/23 04/01/23 04/02/23 06:59 06:59 06:59 Intake Total 3901.697 / 3901.697 6.165 / 6.165 Output Total 810 / 810 Balance 3091.697 / 3091.697 6.165 / 6.165 Cumulative 03/31/23 16:12 thru 04/01/23 07:30 Intake Total 3907.862 Output Total 810 Balance 3097.862 RT Ventilator Mngmt (Last Documented) Ventilator Ordered Settings Respiratory Rate 35 04/01/23 03:50 Fraction of Inspired Oxygen 50 03/31/23 20:51 Ventilator - PT Measurements Respiratory Rate 35 Coding Level of Care Code 13770 SUB INP/OBS CARE 3/50MIN Diagnoses Acute pancreatitis K85.90 Acute pancreatitis complication: unspecified Pancreatitis type: unspecified pancreatitis type Acute hepatitis B17.9 Acute respiratory failure with hypoxia J96.01 Type 2 diabetes mellitus E11.9 High anion gap metabolic acidosis E87.29 SIRS (systemic inflammatory response syndrome) R65.10 DKA (diabetic ketoacidosis) E10.11 Diabetes mellitus complication detail: with coma Diabetes mellitus type: type 1 GUILLERMINA (acute kidney injury) N17.9 Acute hyperkalemia E87.5 (1) Acute pancreatitis Acute pancreatitis complication: unspecified Pancreatitis type: unspecified pancreatitis type Qualified Code(s): K85.90 - Acute pancreatitis without necrosis or infection, unspecified (7) DKA (diabetic ketoacidosis) Diabetes mellitus complication detail: with coma Diabetes mellitus type: type 1 Qualified Code(s): E10.11 - Type 1 diabetes mellitus with ketoacidosis with coma
--- NOTE | 2023-04-01 12:44 | Hospitalist Progress Note ---
Date of Service April 01, 2023 Assessment & Plan (1) Acute pancreatitis: Plan: Currently n.p.o. on IV fluids. Pain control measures. Lipase improved to 930 from 2410. Serial labs. No overt liver or gallbladder disease seen on imaging. Apparently he has no significant alcohol history. No CBD dilatation on CT, will get US liver and portal vein doppler. (2) SIRS (systemic inflammatory response syndrome): Plan: Present on admission. He is not requiring vasopressor support. He remains on intravenous Zosyn. Blood cultures negative to date. No overt infectious process involving the gallbladder. Spontaneous bacterial peritonitis remains in the differential. Lyme, anaplasmosis/babesiosis smear pending. Recent melanoma surgery on his back although this area appears non-cellulitic. (3) Acute hepatitis: Plan: Elevated LFTs on admission. Serial labs. Patient is unable to provide any accurate history regarding any recent alcohol intake. Apparently he has no past history of alcoholism. (4) High anion gap metabolic acidosis: Plan: Present on admission. Improving. Serial labs. (5) Hyperglycemia: Plan: Suspected DKA present on admission. Now on insulin drip. Serial labs. IV fluids. (6) Type 2 diabetes mellitus: Plan: Hemoglobin A1C 6.4 in September 2021. Suspected DKA present on admission. Currently on insulin drip. Holding metformin (7) Acute hyperkalemia: Plan: Due to acidosis and renal failure present on admission. Now improved. Lisinopril has been discontinued. Serial labs. (8) GUILLERMINA (acute kidney injury): Plan: Probably prerenal. Continue IV fluids. Monitor intake and output. Lisinopril has been discontinued (9) Acute respiratory failure with hypoxia: Plan: Required 15LPM O2 non-rebreather when he came into the ER. BiPAP placed due to work of breathing, suspect due to metabolic acidosis. Now resolved. Serial chest x-ray (10) Malignant melanoma: Plan: Reportedly had melanoma removed from his back 4 days ago. Site appears non cellulitic (11) Esophageal dysphagia: Plan: Switch oral pantoprazole to IV for now (12) HTN (hypertension): Plan: Holding lisinopril with current illness, hypotension and hyperkalemia (13) History of CVA (cerebrovascular accident): Plan: Currently on aspirin and Plavix (14) Hypothyroidism: Plan: Continue levothyroxine. TSH pending Plan VTE Prophylaxis - heparin 5000 units SQ BID Diet - NPO currently Disposition -to be determined Admission and Anticipated Discharge Date Admission Date: March 31, 2023 Subjective The patient is awake but disoriented. I do not believe this is his baseline. He denies any discomfort but upon abdominal exam he is diffusely tender and bowel sounds are absent. He remains on an insulin drip. Bicarb has improved from 11 up to 20. Creatinine also improved from 2.3 down to 1.3. He remains n.p.o. Portal vein ultrasound negative for thrombosis. Lipase has trended down to 930. He remains on intravenous Zosyn. Liver ultrasound is unremarkable. He is not requiring pressor support at this time Review of Systems Review of Systems: The patient is unable to answer any questions reliably regarding review of systems Physical Exam Physical Exam: General-alert but disoriented to time and place. No acute distress HEENT-head atraumatic and normocephalic, pupils equal and reactive to light, extraocular muscles intact Neck-no lymphadenopathy or thyromegaly, trachea midline Chest-clear to auscultation percussion. No rales wheezing or rhonchi Cardiac-slightly tachycardic rate, regular rhythm, normal S1 and S2 Abdomen-slightly dilated. Diffusely tender. Absent bowel sounds Extremities-no cyanosis, clubbing, or edema Neuro-cranial nerves II through XII intact, motor and sensory function within normal limits, strength symmetrical , no focal deficits Psych-disoriented. Cannot assess. Results & Data Results & Data Vital Signs (Past 12 Hours) Vital Signs Temp Pulse Resp BP Pulse Ox O2 Del Method O2 Flow Rate 04/01/23 12:00 37.4 C 70 30 H 137/86 95 04/01/23 11:00 37.1 C 72 32 H 143/85 H 94 04/01/23 10:00 36.7 C 71 28 H 135/86 94 04/01/23 09:00 37.2 C 73 28 H 149/88 H 96 04/01/23 08:00 37.2 C 64 29 H 124/73 94 04/01/23 07:00 37.2 C 71 29 H 115/70 96 High Flow Nasal Cannula 1 04/01/23 08:00 High Flow Nasal Cannula 2 04/01/23 06:27 96 Nasal Cannula 2 04/01/23 06:00 91 Room Air 04/01/23 06:27 91 Nasal Cannula 0 04/01/23 06:00 Room Air 04/01/23 03:00 Nasal Cannula 04/01/23 03:00 97 Nasal Cannula 2 04/01/23 03:50 37.2 C 77 35 H 97 4 04/01/23 03:40 37.2 C 78 32 H 97 04/01/23 03:30 36.9 C 78 37 H 95 04/01/23 03:20 36.9 C 81 35 H 95 04/01/23 03:10 36.9 C 83 33 H 94 04/01/23 03:00 36.9 C 85 33 H 95 04/01/23 03:00 124/76 04/01/23 02:50 36.7 C 79 35 H 97 04/01/23 02:40 36.6 C 82 36 H 96 04/01/23 02:37 36.6 C 86 38 H 96 04/01/23 02:37 133/76 04/01/23 02:30 36.6 C 84 35 H 96 04/01/23 02:20 37.3 C 76 35 H 98 04/01/23 02:10 37.1 C 86 34 H 98 04/01/23 02:01 153/74 H 04/01/23 02:01 37.1 C 78 36 H 99 04/01/23 02:00 37.5 C 79 31 H 98 04/01/23 01:50 37.5 C 96 H 34 H 100 04/01/23 01:40 37.5 C 74 37 H 100 04/01/23 01:30 37.5 C 77 36 H 99 04/01/23 01:20 37.5 C 83 34 H 97 04/01/23 01:10 37.5 C 81 36 H 96 04/01/23 01:00 37.5 C 98 H 36 H 96 04/01/23 01:00 142/87 H 04/01/23 00:50 37.5 C 36 H 95 04/01/23 00:40 37.5 C 89 34 H 95 04/01/23 02:00 Nasal Cannula 04/01/23 01:00 Nasal Cannula Laboratory Results 04/01/23 04:50 04/01/23 04:50 PG Care Time/CCT Total # of Minutes Spent Total Time Spent with Patient: Total time spent is greater than 50% in coordination of care (as documented) at patient's floor/unit and/or counseling patient: Coding Level of Care Code 44753 SUB INP/OBS CARE 3/50MIN Diagnoses Acute pancreatitis K85.90 Acute pancreatitis complication: unspecified Pancreatitis type: unspecified pancreatitis type SIRS (systemic inflammatory response syndrome) R65.10 Acute hepatitis B17.9 High anion gap metabolic acidosis E87.29 Hyperglycemia R73.9 Type 2 diabetes mellitus E11.9 Acute hyperkalemia E87.5 GUILLERMINA (acute kidney injury) N17.9 Acute respiratory failure with hypoxia J96.01 Malignant melanoma C43.9 Esophageal dysphagia R13.19 HTN (hypertension) I10 History of CVA (cerebrovascular accident) Z86.73 Hypothyroidism E03.9 (1) Acute pancreatitis Acute pancreatitis complication: unspecified Pancreatitis type: unspecified pancreatitis type Qualified Code(s): K85.90 - Acute pancreatitis without necrosis or infection, unspecified
[2023-04-01] MEDS ORDERED: LANTUS PER UNIT CHARGE SC ONE (13:15)
--- NOTE | 2023-04-01 13:16 | Pharmacy Report ---
Pharmacy Glycemic Short Note 2 - Date of Service April 01, 2023 - Glycemic Short BSG Results (Last 24 hours): 03/31/23 03/31/23 03/31/23 16:50 16:54 19:05 Glucose 576 H* POC Glucose 472 H* POC Glucose (other) 571 H* 03/31/23 03/31/23 03/31/23 19:37 21:07 22:03 Glucose 390 H* POC Glucose 300 H 263 H POC Glucose (other) 03/31/23 04/01/23 04/01/23 23:03 00:01 00:17 Glucose 179 H POC Glucose 219 H 171 H POC Glucose (other) 04/01/23 04/01/23 04/01/23 01:07 03:11 04:50 Glucose 143 H POC Glucose 152 H 124 H POC Glucose (other) 04/01/23 04/01/23 04/01/23 05:04 07:11 07:30 Glucose POC Glucose 126 H 108 H 117 H POC Glucose (other) 04/01/23 04/01/23 04/01/23 08:29 09:31 10:30 Glucose POC Glucose 133 H 131 H 140 H POC Glucose (other) 04/01/23 04/01/23 11:31 12:33 Glucose POC Glucose 155 H 181 H POC Glucose (other) OUTPATIENT ANTIDIABETIC REGIMEN: * metformin 1000 mg PO BID * HBA1C = 7.6% (04/01/23) ASSESSMENT: * Mr Hill is a 72 y/o M with a PMH of T2DM who presents with severe pancreatitis. He was initiated on an insulin infusion. * This morning BSGs are stable, within goal range. Insulin infusion reduced to 1 unit/hr. * Patient transitioned from NPO to clear liquid diet at lunch. * Will transition to SQ insulin. Will start with Lantus 25 units (~ 1 unit/hr - also is slightly less than full weight-based stress of 2). Titrate tomorrow based upon BSGs and overnight requirements. * Novolog weight-based stress of 2-3. PLAN FOR INPATIENT GLYCEMIC CONTROL: * Hold outpatient oral diabetes medications * Basal insulin * Lantus 25 units SQ x 1 then re-evaluate tomorrow * Bolus insulin * NovoLog per scale ACHS or Q6hrs while NPO * Goal Range: Low 110 mg/dL - High 140 mg/dL * Correction Factor: 25 mg/dL/unit * Nutritional / Prandial insulin per carb ratio of 1 unit per 6 grams CHO consumed
[2023-04-01] MEDS ORDERED: DC IV INSULIN INFUSION 1 EA DEVI ONE (19:00)
[2023-04-02] MEDS: INSULIN ASPART PER UNIT CHARGE SC SCH ×5 (00:29→18:06)
[2023-04-02] MEDS: PIPERACILLIN/TAZOBACTAM 4.5 GM in DEXTROSE 5% 100 ML IV SCH (06:04)
[2023-04-02] MEDS: LEVOTHYROXINE SODIUM 88 MCG TABLET PO SCH (06:05)
[2023-04-02] MEDS: CLOPIDOGREL BISULFATE 75 MG TAB PO SCH (08:31)
[2023-04-02] MEDS: FLUoxetine HCL 20 MG CAP PO SCH (08:31)
[2023-04-02] MEDS: MAGNESIUM OXIDE 400 MG TAB PO SCH ×2 (08:31→20:30)
[2023-04-02] MEDS: ASPIRIN 81 MG ECTAB PO SCH (08:32)
[2023-04-02] MEDS: ENOXAPARIN INJ 40 MG/0.4 ML SYR SQ SCH (08:57)
[2023-04-02] MEDS ORDERED: LANTUS PER UNIT CHARGE SC SCH (09:00)
[2023-04-02 09:29] LABS: Basophils # (auto) 0.04 K/uL (0-0.2); Basophils % (auto) 0.3 %; Eosinophils # (auto) 0.13 K/uL (0-0.50); Eosinophils % (auto) 1.1 %; Hematocrit (blood only) 42.1 % (42.0-52.0); Hemoglobin 14.5 g/dl (14.0-18.0); Immature Granulocytes # (auto) 0.09 K/uL (0.01-0.20); Immature Granulocytes % (auto) 0.7 %; Lymphocytes # (auto) 0.66 K/uL (1.2-3.4); Lymphocytes % (auto) 5.4 %; Mean Corpuscular Hemoglobin 30.5 pg (25.0-34.0); Mean Corpuscular Hgb Conc 34.4 g/dL (32.0-36.0); Mean Corpuscular Volume 88.4 fL (80.0-100.0); Mean Platelet Volume 10.5 fL (9.4-12.4); Monocytes # (auto) 0.55 K/uL (0.11-0.59); Monocytes % (auto) 4.5 %; Neutrophils # (auto) 10.81 K/uL (1.40-6.50); Platelet Count 137 K/uL (130-400); RDW Standard Deviation 49.1 fL (36.4-46.3); Red Blood Count 4.76 M/uL (4.70-6.10); White Blood Count 12.28 K/ul (4.8-10.8)
[2023-04-02 09:32] LABS: Albumin Globulin Ratio 1.3 (0.9-2); Albumin Level 3.4 gm/dl (3.4-5.0); BUN Creatinine Ratio 31.8 (10-20); Bilirubin,Total 2.4 mg/dl (0.2-1.0); Calcium 7.5 mg/dl (8.6-10.3); Creatinine Clr Calc Pharmacy 88.8 ml/min; Est GFR (African American) 100.9 ml/min; Est GFR (Non-African American) 87.1 ml/min; Globulin 2.6 gm/dl (2.5-4.0); Potassium 3.9 mmol/L (3.5-5.1)
[2023-04-02] MEDS ORDERED: OPTIRAY 320 100ml IV ONE (10:17)
[2023-04-02] MEDS: SODIUM CHLORIDE 0.9% 1000ML 1,000 ML IV SCH ×2 (10:41→20:07)
--- NOTE | 2023-04-02 10:53 | CT Scan Report ---
CT OF THE ABDOMEN AND PELVIS WITH CONTRAST CLINICAL HISTORY: Ileus, tenderness. COMPARISON STUDY: CT of the abdomen and pelvis and right upper quadrant ultrasound March 31, 2023. TECHNIQUE: Following IV administration of 95 mL of Optiray, axial images of the abdomen and pelvis we re obtained from the lung bases to the proximal femurs. Images were reviewed in the axial, sagittal, and coronal planes. IV contrast was administered without complication. Automated exposure control wa s utilized for the study. A dose lowering technique was utilized adhering to the principles of ALARA . CT DOSE: 708.81 mGy.cm FINDINGS: Small bilateral pleural effusions have developed since CT of March 31, 2023. Associated subple ural opacity reflects atelectasis. No hepatic lesions are noted. There is no biliary ductal dilatatio n. There is a probable common bile duct calculus measuring 4 mm on axial image 178 of 805 156. The ga llbladder is mildly distended. The spleen, adrenal glands and kidneys are unremarkable with the excep tion of a left renal cyst. Moderate peripancreatic stranding and fluid is noted. The pancreas is jasmyn atous. The head is slightly heterogeneous. A small amount of ascites within the abdomen and pelvis cunningham s slightly increased. The appendix is normal. There has been interval development of multiple loops o f mildly dilated fluid-filled small bowel. Possible transition point within the distal ileum within t he right lower quadrant on axial image [id number] is noted. Terminal ileum is decompressed. There is col onic diverticulosis. There is no evidence for acute diverticulitis. Note is made of a small tubular f ocus of extraluminal gas just deep to the right anterior abdominal wall on axial image [id number]. The s ource for this gas is not clear on this exam. No additional foci of extraluminal gas are present. A F oley balloon within the bladder is noted. The prostate is enlarged. Right inguinal hernia repair is n oted. Fat-containing left inguinal hernia is present. 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 Interstitial dilatation of the left common iliac artery is present. There is extensive plaque. IMPRESSION: 1. Findings consistent with acute pancreatitis, as shown on CT of March 31, 2023. Persistent peripancrea tic infiltration and fluid. A small amount of fluid within the abdomen and pelvis has increased since prior CT. 2. Suspected 4 mm common bile duct calculus. Therefore, the findings suggest gallstone pancreatitis. 3. Interval development of multiple loops of mildly dilated fluid-filled mid small bowel. Given pancr eatitis, this may reflect an ileus. However, a partial small bowel obstruction could appear similar g iven possible transition point within the distal ileum. 4. Small focus of extraluminal gas within the right anterior abdomen, possibly within a vein. The elva rce and clinical significance is gas is unclear. If persistent symptoms, short-term follow-up CT of t he abdomen and pelvis is recommended. 5. Small bilateral pleural effusions. ACT 112: Negative or not required by law. Electronically signed by: Valente Manriquez M.D. 04/02/2023 10:51 AM
--- NOTE | 2023-04-02 11:03 | Gastroenterology Progress Note ---
Date of Service April 02, 2023 Assessment & Plan (1) Acute pancreatitis: Plan: I can't tell how much better or worse he is now. Now with CBD stone. Will let therapeutic GI decide timing of ERCP Admission and Anticipated Discharge Date Admission Date: March 31, 2023 Subjective A little more oriented today. Doesn't elaborate much on abdominal pain until abdomen is palpated and then he says it hurts. CT done this morning now shows 4mm CBD stone Physical Exam Constitutional: WD/WN, vitals as above Gastrointestinal (Abdomen): Percussion/Palpation: + abdomen tender Results & Data Vital Signs (Past 12 Hours) Vital Signs Temp Pulse Pulse Resp BP Pulse Ox O2 Del Method 04/02/23 08:00 Room Air 04/02/23 08:02 37.1 C 75 22 138/78 93 Room Air 04/02/23 07:35 81 04/02/23 03:16 36.8 C 72 18 121/78 95 Room Air 04/01/23 23:03 85 Diagnostic Findings Chest X-Ray 03/31/23 16:40 SINGLE VIEW CHEST CLINICAL HISTORY: Sepsis. FINDINGS: An AP, portable, upright chest radiograph is compared to study dated 07/31/2022 and correlated with chest CT dated 04/04/2022. The heart is enlarged noting atherosclerotic calcification of the thoracic aorta. The pulmonary vasculature is noncongested. There is chronic elevation of the right hemidiaphragm with bibasilar scarring/atelectasis. No airspace consolidation or large pleural effusion is identified. No pneumothorax is seen. The skeletal structures are osteopenic. The bony thorax is grossly intact. Surgical clips are noted in the left axilla. IMPRESSION: Cardiomegaly with no acute cardiopulmonary abnormality identified. ACT 112: Negative or not required by law. Electronically signed by: Stephen Devlin M.D. 03/31/2023 5:[address] 03/31/23 17:45 CT SCAN OF THE BRAIN WITHOUT IV CONTRAST CLINICAL HISTORY: Change in mental status. Sepsis. COMPARISON STUDY: CT of the brain dated 07/29/2022 TECHNIQUE: Unenhanced axial CT scan of the brain is performed from the vertex to the skull base. A dose lowering technique was utilized adhering to the principles of ALARA. FINDINGS: Brain parenchyma: There is age-related involutional change noting mild subcortical and periventricular microangiopathic disease. There is no hemorrhage, mass effect, or evidence of acute territorial ischemia by CT criteria. 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 There is a chronic lacunar infarct in the left thalamus. Garcia-white matter differentiation is preserved. No extra-axial fluid collection is seen. Ventricles, sulci, cisterns: Prominent secondary to involutional change. Intracranial vasculature: There is atherosclerotic calcification of the cavernous carotid and vertebral arteries. Calvarium: Unremarkable. Sinuses and mastoids: The visualized paranasal sinuses are clear. The mastoid air cells are well pneumatized. Orbits: The bony orbits are grossly intact. IMPRESSION: There is no hemorrhage, mass effect, or evidence of acute territorial ischemia by CT criteria. ACT 112: Negative or not required by law. Electronically signed by: Stephen Devlin M.D. 03/31/2023 6:29 PM Liver Ultrasound 03/31/23 19:50 ULTRASOUND RIGHT UPPER QUADRANT ABDOMEN CLINICAL HISTORY: Elevated hepatic transaminases. COMPARISON STUDY: Abdominal CT dated 03/31/2023 TECHNIQUE: Real-time, grayscale, and color flow sonography of the right upper quadrant of the abdomen was performed. Images are reviewed in the transverse and longitudinal planes. FINDINGS: Liver: The liver is normal in size and heterogeneous in echotexture. There is no intrahepatic biliary ductal dilatation. The main portal vein is patent. Gallbladder: The gallbladder is normal in appearance. No gallstones are identified. There is no gallbladder wall thickening or pericholecystic fluid. A sonographic Dykes's sign could not be assessed. The common bile duct measures up to 0.4 cm in diameter. Pancreas: Not visualized due to bowel gas. Right kidney: Survey images of the right kidney demonstrate cortical atrophy. Echotexture is normal. There is no hydronephrosis. Ascites: There is trace perihepatic ascites. IMPRESSION: 1. No gallstones are identified. 2. Heterogeneous liver with trace perihepatic ascites. 3. Nonvisualization of the pancreas. ACT 112: Negative or not required by law. Electronically signed by: Stephen Devlin M.D. 03/31/2023 9:56 PM Portal Vein US 03/31/23 19:50 DOPPLER ULTRASOUND OF THE HEPATIC AND PORTAL VASCULATURE CLINICAL HISTORY: Elevated hepatic transaminases. Pancreatitis. COMPARISON STUDY: Abdominal CT and abdominal ultrasound performed the same day 03/31/2023. FINDINGS: Real-time grayscale and color Doppler sonography of the hepatic and portal vasculature is performed. The main portal vein and right portal vein are patent with normal direction of flow. Velocities in the main portal vein measuring up to 26 cm/s. The left portal vein was not visualized. The right hepatic vein and the middle hepatic vein are patent with preservation of the normal hepatic venous waveforms. The left hepatic vein was not visualized. The hepatic artery is patent with velocities measuring up to 106 cm/s. The abdominal aorta and IVC were not visualized due to overlying bowel gas. The splenic vein was not visualized. IMPRESSION: The visualized hepatic and portal veins are patent with normal direction of flow as detailed above. The left lobe vessels were not well- visualized. Electronically signed by: Stephen Devlin M.D. 03/31/2023 10:00 PM Abdomen/Pelvis CT 04/02/23 09:44 CT OF THE ABDOMEN AND PELVIS WITH CONTRAST CLINICAL HISTORY: Ileus, tenderness. COMPARISON STUDY: CT of the abdomen and pelvis and right upper quadrant ultrasound March 31, 2023. TECHNIQUE: Following IV administration of 95 mL of Optiray, axial images of the abdomen and pelvis were obtained from the lung bases to the proximal femurs. Images were reviewed in the axial, sagittal, and coronal planes. IV contrast was administered without complication. Automated exposure control was utilized for the study. A dose lowering technique was utilized adhering to the principles of ALARA. CT DOSE: 708.81 mGy.cm FINDINGS: Small bilateral pleural effusions have developed since CT of March 31, 2023. Associated subpleural opacity reflects atelectasis. No hepatic lesions are noted. There is no biliary ductal dilatation. There is a probable common bile duct calculus measuring 4 mm on axial image 178 of 805 156. The gallbladder is mildly distended. The spleen, adrenal glands and kidneys are unremarkable with the exception of a left renal cyst. Moderate peripancreatic stranding and fluid is noted. The pancreas is edematous. The head is slightly heterogeneous. A small amount of ascites within the abdomen and pelvis has slightly increased. The appendix is normal. There has been interval development of multiple loops of mildly dilated fluid-filled small bowel. Possible transition point within the distal ileum within the right lower quadrant on axial image [id number] is noted. Terminal ileum is decompressed. There is colonic diverticulosis. There is no evidence for acute diverticulitis. Note is made of a small tubular focus of extraluminal gas just deep to the right anterior abdominal wall on axial image 294 [id number]. The source for this gas is not clear on this exam. No additional foci of extraluminal gas are present. A Hernandez balloon within the bladder is noted. The prostate is enlarged. Right inguinal hernia repair is noted. Fat-containing left inguinal hernia is present. 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 Interstitial dilatation of the left common iliac artery is present. There is extensive plaque. IMPRESSION: 1. Findings consistent with acute pancreatitis, as shown on CT of March 31, 2023. Persistent peripancreatic infiltration and fluid. A small amount of fluid within the abdomen and pelvis has increased since prior CT. 2. Suspected 4 mm common bile duct calculus. Therefore, the findings suggest gallstone pancreatitis. 3. Interval development of multiple loops of mildly dilated fluid-filled mid small bowel. Given pancreatitis, this may reflect an ileus. However, a partial small bowel obstruction could appear similar given possible transition point within the distal ileum. 4. Small focus of extraluminal gas within the right anterior abdomen, possibly within a vein. The source and clinical significance is gas is unclear. If persistent symptoms, short-term follow-up CT of the abdomen and pelvis is recommended. 5. Small bilateral pleural effusions. ACT 112: Negative or not required by law. Electronically signed by: Valente Manriquez M.D. 04/02/2023 10:51 AM (1) Acute pancreatitis Acute pancreatitis complication: unspecified Pancreatitis type: unspecified pancreatitis type Qualified Code(s): K85.90 - Acute pancreatitis without necrosis or infection, unspecified
--- NOTE | 2023-04-02 11:28 | Hospitalist Progress Note ---
Date of Service April 02, 2023 Assessment & Plan (1) Acute pancreatitis: Plan: Currently n.p.o. on IV fluids. Pain control measures. Lipase improved to 123 from 2410. Serial labs. No overt liver or gallbladder disease seen on imaging. Apparently he has no significant alcohol history. No CBD dilatation on CT. liver ultrasound unremarkable. Portal vein ultrasound negative for thrombosis. (2) SIRS (systemic inflammatory response syndrome): Plan: Present on admission. Now resolved. Cultures negative. Antibiotics discontinued (3) Acute hepatitis: Plan: Elevated LFTs on admission. Probably due to pancreatitis. Improving. Apparently he has no past history of alcoholism. (4) High anion gap metabolic acidosis: Plan: Present on admission. Now resolved. Cultures are negative. Antibiotics discontinued. Serial labs. (5) Hyperglycemia: Plan: Suspected DKA present on admission. Treated with an insulin drip. Resolved. He is now on basal Lantus therapy. He does not take insulin at home however. Hopefully, when things settle down, he can be placed back on his usual oral medications and avoid insulin (6) Type 2 diabetes mellitus: Plan: Hemoglobin A1C 6.4 in September 2021. Suspected DKA present on admission. Now resolved. Metformin is on hold. He is on basal Lantus therapy but does not typically use insulin at home. (7) Acute hyperkalemia: Plan: Due to acidosis and renal failure present on admission. Now resolved. Erin nopril has been discontinued. Serial labs. (8) GUILLERMINA (acute kidney injury): Plan: Appears to be prerenal. Resolved with IV fluids. Monitor intake and output. Lisinopril has been discontinued (9) Acute respiratory failure with hypoxia: Plan: Required 15LPM O2 non-rebreather when he came into the ER. Now resolved. He is on room air. Serial chest x-ray as needed (10) Malignant melanoma: Plan: Reportedly had melanoma removed from his back 4 days ago. Site appears non cellulitic (11) Esophageal dysphagia: Plan: He currently is n.p.o. on IV Protonix for now (12) HTN (hypertension): Plan: Lisinopril has been discontinued and probably should not be restarted due to presence of hyperkalemia on admission although he was acidotic on admission whi ch likely contributed to the hyperkalemia. Blood pressure is currently stable (13) History of CVA (cerebrovascular accident): Plan: Currently on aspirin and Plavix (14) Hypothyroidism: Plan: Continue levothyroxine. Plan VTE Prophylaxis - heparin 5000 units SQ BID Diet - NPO currently. Waiting for ileus to resolve Disposition -to be determined Admission and Anticipated Discharge Date Admission Date: March 31, 2023 Subjective Alert but he remains encephalopathic. Clinical examination is consistent with ileus. This is confirmed by CT scan. No overt obstruction. He is now n.p.o. He is off the insulin drip and on Lantus. Creatinine improved to 0.8. Lipase down to 123. Cultures are negative. Will can discontinue antibiotic. Continue IV fluids for now. I spoke with his daughter, Christiane, by phone. Review of Systems Review of Systems: The patient is unable to answer any questions reliably regarding review of systems Physical Exam Physical Exam: General-alert but disoriented to time and place. No acute distress HEENT-head atraumatic and normocephalic, pupils equal and reactive to light, extraocular muscles intact Neck-no lymphadenopathy or thyromegaly, trachea midline Chest-clear to auscultation percussion. No rales wheezing or rhonchi Cardiac-slightly tachycardic rate, regular rhythm, normal S1 and S2 Abdomen-slightly dilated. Diffusely tender. Absent bowel sounds Extremities-no cyanosis, clubbing, or edema Neuro-cranial nerves II through XII intact, motor and sensory function within normal limits, strength symmetrical , no focal deficits Psych-disoriented. Cannot assess. Results & Data Results & Data Vital Signs (Past 12 Hours) Vital Signs Temp Pulse Pulse Resp BP Pulse Ox O2 Del Method 04/02/23 08:00 Room Air 04/02/23 08:02 37.1 C 75 22 138/78 93 Room Air 04/02/23 07:35 81 04/02/23 03:16 36.8 C 72 18 121/78 95 Room Air Laboratory Results 04/02/23 06:19 04/02/23 06:19 PG Care Time/CCT Total # of Minutes Spent Total Time Spent with Patient: Total time spent is greater than 50% in coordination of care (as documented) at patient's floor/unit and/or counseling patient: Coding Level of Care Code 28494 SUB INP/OBS CARE 3/50MIN Diagnoses Acute pancreatitis K85.90 Acute pancreatitis complication: unspecified Pancreatitis type: unspecified pancreatitis type SIRS (systemic inflammatory response syndrome) R65.10 Acute hepatitis B17.9 High anion gap metabolic acidosis E87.29 Hyperglycemia R73.9 Type 2 diabetes mellitus E11.9 Acute hyperkalemia E87.5 GUILLERMINA (acute kidney injury) N17.9 Acute respiratory failure with hypoxia J96.01 Malignant melanoma C43.9 Esophageal dysphagia R13.19 HTN (hypertension) I10 History of CVA (cerebrovascular accident) Z86.73 Hypothyroidism E03.9 (1) Acute pancreatitis Acute pancreatitis complication: unspecified Pancreatitis type: unspecified pancreatitis type Qualified Code(s): K85.90 - Acute pancreatitis without necrosis or infection, unspecified
[2023-04-02] MEDS ORDERED: Nursing to Pharmacy Communication SCH (14:30)
[2023-04-02 23:47] LABS: HBSAG NON-REACTIVE (NON-REACTIVE); Hepatitis A Antibody IgM NON-REACTIVE (NON-REACTIVE); Hepatitis B Core Antibody IgM NON-REACTIVE (NON-REACTIVE)
[2023-04-03] MEDS: INSULIN ASPART PER UNIT CHARGE SC SCH ×5 (00:30→23:50)
[2023-04-03] MEDS: SODIUM CHLORIDE 0.9% 1000ML 1,000 ML IV SCH (05:40)
[2023-04-03] MEDS: LEVOTHYROXINE SODIUM 88 MCG TABLET PO SCH (05:41)
[2023-04-03 07:01] LABS: Hematocrit (blood only) 37.9 % (42.0-52.0); Hemoglobin 13.5 g/dl (14.0-18.0); Mean Corpuscular Hemoglobin 31.1 pg (25.0-34.0); Mean Corpuscular Hgb Conc 35.6 g/dL (32.0-36.0); Mean Corpuscular Volume 87.3 fL (80.0-100.0); Mean Platelet Volume 10.1 fL (9.4-12.4); Platelet Count 123 K/uL (130-400); RDW Coefficient of Variation 14.6 % (11.5-14.5); RDW Standard Deviation 47.1 fL (36.4-46.3); Red Blood Count 4.34 M/uL (4.70-6.10); White Blood Count 12.23 K/ul (4.8-10.8)
[2023-04-03 07:30] LABS: Albumin Globulin Ratio 1.2 (0.9-2); Albumin Level 3.1 gm/dl (3.4-5.0); BUN Creatinine Ratio 40.8 (10-20); Bilirubin,Total 1.6 mg/dl (0.2-1.0); Est GFR (African American) 126.5 ml/min; Est GFR (Non-African American) 109.2 ml/min; Globulin 2.6 gm/dl (2.5-4.0); Potassium 3.4 mmol/L (3.5-5.1); Total Protein 5.7 gm/dl (6.0-8.3)
[2023-04-03 07:36] LABS: Basophils # (auto) 0.02 K/uL (0-0.2); Basophils % (auto) 0.2 %; Immature Granulocytes # (auto) 0.04 K/uL (0.01-0.20); Immature Granulocytes % (auto) 0.3 %; Lymphocytes # (auto) 0.62 K/uL (1.2-3.4); Lymphocytes % (auto) 5.1 %; Monocytes # (auto) 0.52 K/uL (0.11-0.59); Monocytes % (auto) 4.3 %; Neutrophils # (auto) 11.03 K/uL (1.40-6.50); Neutrophils % (auto) 90.1 %
[2023-04-03] MEDS: ENOXAPARIN INJ 40 MG/0.4 ML SYR SQ SCH ×2 (08:13→08:36)
[2023-04-03] MEDS: MAGNESIUM OXIDE 400 MG TAB PO SCH ×2 (08:13→20:33)
[2023-04-03] MEDS: FLUoxetine HCL 20 MG CAP PO SCH (08:13)
[2023-04-03] MEDS ORDERED: POTASSIUM CHLORIDE 20 MEQ in SODIUM CHLORIDE 0.9% 1000ML 1,000 ML IV SCH (08:30)
[2023-04-03] MEDS ORDERED: PIPERACILLIN/TAZOBACTAM 4.5 GM (over 30 mins) IV ONE (08:45)
--- NOTE | 2023-04-03 09:43 | Surgery Consultation ---
Date of Consultation April 03, 2023 History of Present Illness Attending Physician: Casey Falcon MD History of Present Illness This is a 72yM with a PMH of DM2, HLD, HTN, hypothyroid, CVA on plavix CT a/p performed showed findings consistent with acute pancreatitis with a suspected 4 mm common bile duct calculus, concerning for gallstone pancreatitis. Allergies Allergy/AdvReac Type Severity Reaction Status Date / Time No Known Allergies Allergy Verified 07/31/22 18:11 Home Medications Medication Instructions Recorded Confirmed Type clopidogrel 75 mg tablet 75 mg PO QAM 08/17/20 03/31/23 History fluoxetine 20 mg capsule 20 mg PO QAM 08/17/20 03/31/23 History lisinopril 10 mg tablet 10 mg PO QAM 08/17/20 03/31/23 History metformin 500 mg tablet 1,000 mg PO BID 08/17/20 03/31/23 History pantoprazole 40 mg tablet,delayed 40 mg PO DAILY #30 tabs 07/05/22 03/31/23 Rx release aspirin 81 mg tablet,delayed 81 mg PO DAILY 03/31/23 03/31/23 History release levothyroxine 88 mcg tablet 88 mcg PO DAILY 03/31/23 03/31/23 History (Synthroid) magnesium oxide 400 mg PO BID 03/31/23 03/31/23 History simvastatin 40 mg tablet 40 mg PO DAILY 03/31/23 03/31/23 History tamsulosin 0.4 mg capsule 0.4 mg PO DAILY 03/31/23 03/31/23 History Patient History Medical History Aneurysm pts daughter unsure what type, they are watching, follows w/ ange last visit 07/01/2022 Borderline hyperlipidemia Diabetes Enlarged prostate History of COVID-19 11/16- congestion; no hospitalization, no current issues HTN (hypertension) Hypothyroidism Malignant melanoma On anticoagulant therapy plavix Poor historian phone interview done by pts daughter, whom recently took over his medical/care information after of his Skin cancer 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 w/ immunotherapy completed tx over 1 year ago; follows w/ [facility] last visit 06/2022 TIA (transient ischemic attack) x2 last one 8-10yrs ago; has problems processing info and takes longer to process, but can answer questions appropriately, per daughter Surgical History S/P colonoscopy S/P hernia repair Social History Smoking Status: Unknown if ever smoked Tobacco Type: Smokeless Tobacco (Dip or Chew) Second Hand Exposure: No; Do You Dip or Chew Tobacco: Yes; Hx Alcohol Use: Yes Alcohol type: beer Alcohol Intake Frequency: 2-4 x/Month Hx Substance Use: No Preferred Language: B[place]ian Communication Ability: Effective Visual Impairment: No Limitations Hearing Ability: Normal Indoor Sports [employer] Manager Required: No Beliefs That Will Affect Care: None marital status: Current Living Situation: Alone Current Living Situation Comment: dtr goes to drs appointments - he lives by himself current occupational status: retired Feels Safe at Home: Yes Safety Concerns: Feels Safe At This Time Assistive Devices: None Results & Data Vital Signs (Past 12 Hours) Vital Signs Temp Pulse Pulse Resp BP Pulse Ox O2 Del Method 04/03/23 07:47 76 04/03/23 07:23 36.7 C 65 16 145/91 H 93 Room Air 04/03/23 03:42 37.1 C 76 18 148/87 H 93 Room Air 04/02/23 22:12 79 04/02/23 23:33 36.7 C 82 18 151/91 H [address] Air Diagnostic Findings [address] OF THE ABDOMEN AND PELVIS WITH CONTRAST CLINICAL HISTORY: Ileus, tenderness. COMPARISON STUDY: CT of the abdomen and pelvis and right upper quadrant ultrasound March 31, 2023. TECHNIQUE: Following IV administration of 95 mL of Optiray, axial images of the abdomen and pelvis were obtained from the lung bases to the proximal femurs. Images were reviewed in the axial, sagittal, and coronal planes. IV contrast was administered without complication. Automated exposure control was utilized for the study. A dose lowering technique was utilized adhering to the principles of ALARA. CT DOSE: 708.81 mGy.cm FINDINGS: Small bilateral pleural effusions have developed since CT of March 31, 2023. Associated subpleural opacity reflects atelectasis. No hepatic lesions are noted. There is no biliary ductal dilatation. There is a probable common bile duct calculus measuring 4 mm on axial image 178 of 805 156. The gallbladder is mildly distended. The spleen, adrenal glands and kidneys are unremarkable with the exception of a left renal cyst. Moderate peripancreatic stranding and fluid is noted. The pancreas is edematous. The head is slightly heterogeneous. A small amount of ascites within the abdomen and pelvis has slightly increased. The appendix is normal. There has been interval development of multiple loops of mildly dilated fluid-filled small bowel. Possible transition point within the distal ileum within the right lower quadrant on axial image 388 556 is noted. Terminal ileum is decompressed. There is colonic diverticulosis. There is no evidence for acute diverticulitis. Note is made of a small tubular focus of extraluminal gas just deep to the right anterior abdominal wall on axial image 294 556. The source for this gas is not clear on this exam. No additional foci of extraluminal gas are present. A Hernandez balloon within the bladder is noted. The prostate is enlarged. Right inguinal hernia repair is noted. Fat-containing left inguinal hernia is present. 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 Interstitial dilatation of the left common iliac artery is present. There is extensive plaque. IMPRESSION: 1. Findings consistent with acute pancreatitis, as shown on CT of March 31, 2023. Persistent peripancreatic infiltration and fluid. A small amount of fluid within the abdomen and pelvis has increased since prior CT. 2. Suspected 4 mm common bile duct calculus. Therefore, the findings suggest gallstone pancreatitis. 3. Interval development of multiple loops of mildly dilated fluid-filled mid small bowel. Given pancreatitis, this may reflect an ileus. However, a partial small bowel obstruction could appear similar given possible transition point within the distal ileum. 4. Small focus of extraluminal gas within the right anterior abdomen, possibly within a vein. The source and clinical significance is gas is unclear. If persistent symptoms, short-term follow-up CT of the abdomen and pelvis is recommended. 5. Small bilateral pleural effusions. ACT 112: Negative or not required by law. Electronically signed by: Valente Manriquez M.D. 04/02/2023 10:51 AM ULTRASOUND RIGHT UPPER QUADRANT ABDOMEN CLINICAL HISTORY: Elevated hepatic transaminases. COMPARISON STUDY: Abdominal CT dated 03/31/2023 TECHNIQUE: Real-time, grayscale, and color flow sonography of the right upper quadrant of the abdomen was performed. Images are reviewed in the transverse and longitudinal planes. FINDINGS: Liver: The liver is normal in size and heterogeneous in echotexture. There is no intrahepatic biliary ductal dilatation. The main portal vein is patent. Gallbladder: The gallbladder is normal in appearance. No gallstones are identified. There is no gallbladder wall thickening or pericholecystic fluid. A sonographic Dykes's sign could not be assessed. The common bile duct measures up to 0.4 cm in diameter. Pancreas: Not visualized due to bowel gas. Right kidney: Survey images of the right kidney demonstrate cortical atrophy. Echotexture is normal. There is no hydronephrosis. Ascites: There is trace perihepatic ascites. IMPRESSION: 1. No gallstones are identified. 2. Heterogeneous liver with trace perihepatic ascites. 3. Nonvisualization of the pancreas. ACT 112: Negative or not required by law. Electronically signed by: Stephen Devlin M.D. 03/31/2023 9:56 PM PG Care Time/CCT Total # of Minutes Spent Total Time Spent with Patient: Total time spent is greater than 50% in coordination of care (as documented) at patient's floor/unit and/or counseling patient: Coding Diagnoses
[2023-04-03] MEDS: NSS + 20MEQ KCL 20 MEQ/1,000 ML BAG IV SCH ×2 (10:00→20:37)
[2023-04-03] MEDS: PANTOprazole 40 MG in SYRINGE 0 ML IV SCH (10:00)
--- NOTE | 2023-04-03 10:54 | Gastroenterology Progress Note ---
Date of Service April 03, 2023 Assessment & Plan (1) SIRS (systemic inflammatory response syndrome): (2) Acute pancreatitis: Plan: Pt is a 72 yo male admitted w SIRS, found to have pancreatitis. LFTs up, but trending down. Noted on repeat CT study now with contrast that he may have 4mm CBD stone, so suspect he has gallstone pancreatitis. He is also noted to have ileus on CT - IVF hydration - He was on Plavix and ASA for hx of stroke. Last dose of Plavix was yesterday. He may have CL diet today but keep NPO after midnight for ERCP tomorrow in OR by Dr. Perez - Consult surgery to eval for possible cholecystectomy - For ileus: encourage OOB, ambulation when mental status improve and if safe; keep K >4 to promote GI motility; avoid narcotic. KUB daily until resolution of ileus noted - Above plans reviewed w pt's daughter (Gail) Admission and Anticipated Discharge Date Admission Date: March 31, 2023 Supervising Physician Co-Signing Physician Notes Patient was seen and examined on 04/03 with ALPHONSO Robles whose note reflects our findings and plan. Patient with what appears to be gallstone pancreatitis. ?4mm CBD stone on imaging that was repeated. LFTs improving. He will need eventual cholecystectomy. ERCP planned for Monday. Hold anticoagulants please. Subjective Pt oriented to self and place only. Denies having pain, n/v. Review of Systems Review of Systems: Unobtainable due to cognitive status and Other Physical Exam Constitutional: WD/WN, vitals as above well groomed, cooperative and comfortable Eyes: PERRL, conjunctivae normal, anicteric sclerae ENMT: external ear and nose normal, oropharynx normal Respiratory: normal respiratory effort, lungs clear to auscultation Cardiovascular: RRR, no murmur, no edema Gastrointestinal (Abdomen): normal bowel sounds, soft, nontender, no hepatosplenomegaly Skin: no rashes, warm and dry no jaundice Neurologic: Motor/Sensory: no asterixis Psychiatric: oriented to self and place only Lymphatic: no lymphedema Results & Data Vital Signs (Past 12 Hours) Vital Signs Temp Pulse Pulse Resp BP Pulse Ox O2 Del Method 04/03/23 07:47 76 04/03/23 07:23 36.7 C 65 16 145/91 H 93 Room Air 04/03/23 03:42 37.1 C 76 18 148/87 H 93 Room Air 04/02/23 23:33 36.7 C 82 18 151/91 H 91 Room Air (2) Acute pancreatitis Acute pancreatitis complication: unspecified Pancreatitis type: unspecified pancreatitis type Qualified Code(s): K85.90 - Acute pancreatitis without necrosis or infection, unspecified
--- NOTE | 2023-04-03 11:27 | Surgery Consultation ---
Date of Consultation April 03, 2023 Assessment & Plan (1) Acute pancreatitis: His ultrasound and 2 CT scan images and results were personally viewed by myself Most likely cause of his pancreatitis is gallstones He is scheduled for an ERCP tomorrow with GI At this point due to his severe pancreatitis and the fact that he is on Plavix as well as has an ileus from his pancreatitis we will hold off on any cholecystectomy at this time Plan would be to recover him from his acute pancreatitis and possibly schedule h im as an outpatient for cholecystectomy versus advance GI procedure for gallbladder drainage We will follow the patient while in the hospital (2) Elevated LFTs: History of Present Illness Reason for Consultation: Gallstone pancreatitis Attending Physician: Casey Falcon MD History of Present Illness Is a 72-year-old male who was admitted to the hospital on March 31 with severe acute pancreatitis. He also had acute renal failure at that time and was admitted to the ICU. He had an elevated lactate which is since come down. Initial ultrasound of the abdomen revealed no gallstones and initial CT of the abdomen revealed pancreatitis and unremarkable gallbladder. CT scan performed yesterday showed a suspected 4 mm distal common bile duct stone. The patient is since moved out of the ICU and looks to be improving clinically as his renal failure has improved and lipase has nearly come down to normal. Today I saw him and he is still complaining of diffuse abdominal pain, similar to his pain when he was admitted. Pain is without radiation. He has never had this type of pain in the past. He denies any previous abdominal surgeries. He does take aspirin and Plavix for history of a CVA in the past. He denies any nausea or vomiting. He does complain of bloating and distention. He denies any bowel movement or any flatus at this time. Allergies Allergy/AdvReac Type Severity Reaction Status Date / Time No Known Allergies Allergy Verified 07/31/22 18:11 Home Medications Medication Instructions Recorded Confirmed Type clopidogrel 75 mg tablet 75 mg PO QAM 08/17/20 03/31/23 History fluoxetine 20 mg capsule 20 mg PO QAM 08/17/20 03/31/23 History lisinopril 10 mg tablet 10 mg PO QAM 08/17/20 03/31/23 History metformin 500 mg tablet 1,000 mg PO BID 08/17/20 03/31/23 History pantoprazole 40 mg tablet,delayed 40 mg PO DAILY #30 tabs 07/05/22 03/31/23 Rx release aspirin 81 mg tablet,delayed 81 mg PO DAILY 03/31/23 03/31/23 History release levothyroxine 88 mcg tablet 88 mcg PO DAILY 03/31/23 03/31/23 History (Synthroid) magnesium oxide 400 mg PO BID 03/31/23 03/31/23 History simvastatin 40 mg tablet 40 mg PO DAILY 03/31/23 03/31/23 History tamsulosin 0.4 mg capsule 0.4 mg PO DAILY 03/31/23 03/31/23 History Patient History Medical History Aneurysm pts daughter unsure what type, they are watching, follows w/ ange last visit 07/01/2022 Borderline hyperlipidemia Diabetes Enlarged prostate History of COVID-19 11/16- congestion; no hospitalization, no current issues HTN (hypertension) Hypothyroidism Malignant melanoma On anticoagulant therapy plavix Poor historian phone interview done by pts daughter, whom recently took over his medical/care information after of his Skin cancer 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 w/ immunotherapy completed tx over 1 year ago; follows w/ [facility] last visit 06/2022 TIA (transient ischemic attack) x2 last one 8-10yrs ago; has problems processing info and takes longer to process, but can answer questions appropriately, per daughter Surgical History S/P colonoscopy S/P hernia repair Social History Smoking Status: Unknown if ever smoked Tobacco Type: Smokeless Tobacco (Dip or Chew) Second Hand Exposure: No; Do You Dip or Chew Tobacco: Yes; Hx Alcohol Use: Yes Alcohol type: beer Alcohol Intake Frequency: 2-4 x/Month Hx Substance Use: No Preferred Language: Icelandic Communication Ability: Effective Visual Impairment: No Limitations Hearing Ability: Normal Deflector Operator Required: No Beliefs That Will Affect Care: None marital status: Current Living Situation: Alone Current Living Situation Comment: dtr goes to drs appointments - he lives by himself current occupational status: retired Feels Safe at Home: Yes Safety Concerns: Feels Safe At This Time Assistive Devices: None Review of Systems Constitutional: no fever and no chills Eyes: no worsening vision Scleral icterus Ear, Nose, Mouth, Throat: + dysphagia; no ear pain and no hearing loss Respiratory: + dyspnea; no cough Cardiovascular: no chest pain and no dyspnea on exertion Gastrointestinal: + abdominal pain; no nausea, no vomiting, no constipation and no diarrhea/loose stools Genitourinary: no dysuria Musculoskeletal: no back pain and no neck pain Integumentary: no acne, no rash and no skin ulcer Neurologic: + confusion; no headache(s) Psychiatric: no behavioral changes and no depression Hematologic / Lymphatic: + easy bleeding and + easy bruising On Plavix Physical Exam Constitutional: WD/WN, vitals as above Eyes: PERRL, conjunctivae normal, anicteric sclerae ENMT: external ear and nose normal, oropharynx normal Neck: trachea midline, no thyromegaly Respiratory: normal respiratory effort, lungs clear to auscultation Cardiovascular: RRR, no murmur, no edema Gastrointestinal (Abdomen): Inspection/Auscultation: + abdomen distended and + visible herniation (At umbilicus); + abdomen abnormal to inspection Percussion/Palpation: + abdomen tender (Diffuse generalized) and abdomen soft; no guarding and abdomen not rigid Musculoskeletal: no cyanosis or clubbing, extremities motor strength 5/5 Skin: no rashes, warm and dry Neurologic: PERRL, EOMI, accommodation nl, no face palsy, no dysarthria Psychiatric: A+Ox3, euthymic affect Results & Data Vital Signs (Past 12 Hours) Vital Signs Temp Pulse Pulse Resp BP Pulse Ox O2 Del Method 04/03/23 07:47 76 04/03/23 07:23 36.7 C 65 16 145/91 H 93 Room Air 04/03/23 03:42 37.1 C 76 18 148/87 H 93 Room Air 04/02/23 23:33 36.7 C 82 18 151/91 H 91 Room Air PG Care Time/CCT Total # of Minutes Spent Total Time Spent with Patient: Total time spent is greater than 50% in coordination of care (as documented) at patient's floor/unit and/or counseling patient: Coding Level of Care Code 08377 IN/OBS CONSULT LVL 4,60M Diagnoses Acute pancreatitis K85.90 Acute pancreatitis complication: unspecified Pancreatitis type: unspecified pancreatitis type Elevated LFTs R79.89 (1) Acute pancreatitis Acute pancreatitis complication: unspecified Pancreatitis type: unspecified pancreatitis type Qualified Code(s): K85.90 - Acute pancreatitis without necrosis or infection, unspecified
--- NOTE | 2023-04-03 12:11 | Hospitalist Progress Note ---
Date of Service April 03, 2023 Assessment & Plan (1) Acute pancreatitis: Plan: Peak lipase 2410. Likely due to gallstones given the CT a/p findings on 04/02 showing concern for choledocholithiasis. Pancreatitis complicated by ileus. GI following. Gen surg following. Clears started this am by GI. He remains quite tender on exam today - see below. (2) Abdominal pain: Plan: Could be from resolving pancreatitis, the ileus itself with resulting abd distension, brewing cholecystitis, or some other entity. Yesterday his CT was c/w ileus, not SBO - but today he has significant tenderness around the site of his umbilicus. Will obtain 2-view abd x-rays - r/o free air, development of SBO, etc. Recheck LFTs and lipase in am. (3) Choledocholithiasis: Plan: Suspected, based on CT abd/pelvis yesterday. [facility] are following and are planning ERCP tomorrow. Restart zosyn IV. Blood cx's from admission negative. LFTs are down-trending. (4) Sepsis: Plan: uncertain but possible with #3 could have element of infection due to recent biliary obstruction cont IV zosyn blood cx's negative to date (5) Ileus: Plan: 2nd to #1. Cont clears as long as abd x-rays are stable. Defer on NG tube unless he develops significant vomiting. Keep K and Mag wnl. Add KCL to IV fluids. Abd x-rays ordered - see #2 above. (6) Acute metabolic encephalopathy: Plan: 2nd to #1, #3, other factors. Supportive care. Avoid sedatives/benzos. (7) Acute hepatitis: Plan: Improving. 2nd to #3. LFTs in am. Can't rule out a partially treated cholecystitis but imaging has not suggested such. (8) High anion gap metabolic acidosis: Plan: Present on admission. Now resolved. 2nd to DKA & lactic acidosis. (9) Type 2 diabetes mellitus: Plan: Hemoglobin A1C 7.6% this admission. Resolved DKA (had been on insulin infusion). Metformin is on hold. Cont bolus insulin therapy. Basal on hold but suspect we will need to resume given clears are being started. (10) Acute hyperkalemia: Plan: present on admission - resolved now with hypokalemia due to NPO status (11) GUILLERMINA (acute kidney injury): Plan: resolved (12) Acute respiratory failure with hypoxia: Plan: 2nd to acidosis at time of admission. required non-rebreather by report at time of ER presentation. resolved. (13) Malignant melanoma: Plan: back, s/p removal just prior to admission (14) Esophageal dysphagia: Plan: cont PPI (15) HTN (hypertension): Plan: Bps satisfactory JOSÉ MIGUEL inhibitor on hold (16) History of CVA (cerebrovascular accident): Plan: Currently on aspirin and Plavix - hold both due to need for ERCP (17) Hypothyroidism: Plan: Continue levothyroxine. TSH 0.192 - will not adjust at this time. Simply repeat as outpatient. (18) DKA (diabetic ketoacidosis): Plan: present on admission - resolved Plan VTE Prophylaxis - heparin 5000 units SC BID add flutter valve add incentive spirometry Admission and Anticipated Discharge Date Admission Date: March 31, 2023 Subjective tele wnl overnight patient with waxing/waning mental status per staff during my rounds he c/o central abd pain near his umbilicus "very hard" / distended abdomen remains passing little flatus if any no vomiting denies nausea per staff he had an episode in which he appeared mottled this was when he was working with PT earlier in the am Review of Systems Review of Systems: gen - weak cv - no chest pain pulm - no dyspnea GI - bloated/distended Physical Exam Physical Exam: gen - looks tired, weak, flushed on face mouth - MMM neck - no JVD heart - RRR, s1 s2, no murmur lungs - CTA b/l, decreased BS bases abd - very distended, BS+ but decreased, very tender over his umbilicus with borderline guarding, umbilical hernia present - reducible; no HSM ext - cool distal legs but pulses 1-2+ b/l skin - no jaundice; no rash; no mottling during my exam psych - oriented to person/place but cannot tell me the details of why he is here other than "my stomach" Results & Data Results & Data Vital Signs (Past 12 Hours) Vital Signs Temp Pulse Pulse Resp BP Pulse Ox O2 Del Method 04/03/23 11:42 36.7 C 79 19 155/91 H 91 Room Air 05/08/23 07:47 76 04/03/23 07:23 36.7 C 65 16 145/91 H 93 Room Air 04/03/23 03:42 37.1 C 76 18 148/87 H 93 Room Air Laboratory Results Laboratory Results - last 24 hr 03/31/23 04/02/23 04/03/23 19:37 17:52 00:21 WBC RBC Hgb Hct MCV MCH MCHC RDW Std Deviation RDW Coeff of Dinorah Plt Count MPV Immature Gran % (Auto) Neut % (Auto) Lymph % (Auto) [place] % (Auto) Eos % (Auto) Baso % (Auto) Neut # (Auto) Lymph # (Auto) [place] # (Auto) Eos # (Auto) Baso # (Auto) Immature Gran # (Auto) Sodium Potassium Chloride Carbon Dioxide Anion Gap BUN Creatinine Est Cr Clr Drug Dosing Est GFR ( Amer) Est GFR (Non-Af Amer) BUN/Creatinine Ratio Glucose POC Glucose 133 H 124 H Calcium Magnesium Total Bilirubin AST ALT Alkaline Phosphatase Total Protein Albumin Globulin Albumin/Globulin Ratio Hepatitis A IgM Ab NON-REACTIVE Hep Bs Antigen NON-REACTIVE Hep Bs Ag Confirmation TNP Hep B Core IgM Ab NON-REACTIVE Hepatitis C Ab (EIA) NON-REACTIVE Hep C Ab Signal/Cutoff 0.05 04/03/23 04/03/23 04/03/23 05:44 06:41 06:41 WBC 12.23 H RBC 4.34 L Hgb 13.5 L Hct 37.9 L MCV 87.3 MCH 31.1 MCHC 35.6 RDW Std Deviation 47.1 H RDW Coeff of Dinorah 14.6 H Plt Count 123 L MPV 10.1 Immature Gran % (Auto) 0.3 Neut % (Auto) 90.1 Lymph % (Auto) 5.1 [place] % (Auto) 4.3 Eos % (Auto) 0.0 Baso % (Auto) 0.2 Neut # (Auto) 11.03 H Lymph # (Auto) 0.62 L [place] # (Auto) 0.52 Eos # (Auto) 0.00 Baso # (Auto) 0.02 Immature Gran # (Auto) 0.04 Sodium 137 Potassium 3.4 L Chloride 105 Carbon Dioxide 22 Anion Gap 10 BUN 20 Creatinine 0.49 L D Est Cr Clr Drug Dosing 154.0 Est GFR ( Amer) 126.5 Est GFR (Non-Af Amer) 109.2 BUN/Creatinine Ratio 40.8 H Glucose 132 H POC Glucose 125 H Calcium 7.0 L Magnesium 2.0 Total Bilirubin 1.6 H AST 23 ALT 131 H Alkaline Phosphatase 83 Total Protein 5.7 L Albumin 3.1 L Globulin 2.6 Albumin/Globulin Ratio 1.2 Hepatitis A IgM Ab Hep Bs Antigen Hep Bs Ag Confirmation Hep B Core IgM Ab Hepatitis C Ab (EIA) Hep C Ab Signal/Cutoff 04/03/23 11:45 WBC RBC Hgb Hct MCV MCH MCHC RDW Std Deviation RDW Coeff of Dinorah Plt Count MPV Immature Gran % (Auto) Neut % (Auto) Lymph % (Auto) [place] % (Auto) Eos % (Auto) Baso % (Auto) Neut # (Auto) Lymph # (Auto) [place] # (Auto) Eos # (Auto) Baso # (Auto) Immature Gran # (Auto) Sodium Potassium Chloride Carbon Dioxide Anion Gap BUN Creatinine Est Cr Clr Drug Dosing Est GFR ( Amer) Est GFR (Non-Af Amer) BUN/Creatinine Ratio Glucose POC Glucose 149 H Calcium Magnesium Total Bilirubin AST ALT Alkaline Phosphatase Total Protein Albumin Globulin Albumin/Globulin Ratio Hepatitis A IgM Ab Hep Bs Antigen Hep Bs Ag Confirmation Hep B Core IgM Ab Hepatitis C Ab (EIA) Hep C Ab Signal/Cutoff Diagnostic Findings blood cx's from admission negative PG Care Time/CCT Total # of Minutes Spent Total Time Spent with Patient: Total time spent is greater than 50% in coordination of care (as documented) at patient's floor/unit and/or counseling patient: Coding Level of Care Code 89108 SUB INP/OBS CARE 3/50MIN Diagnoses Acute pancreatitis K85.90 Acute pancreatitis complication: unspecified Pancreatitis type: unspecified pancreatitis type Abdominal pain R10.9 Choledocholithiasis K80.50 Sepsis A41.9 Ileus K56.7 Acute metabolic encephalopathy G93.41 Acute hepatitis B17.9 High anion gap metabolic acidosis E87.29 Type 2 diabetes mellitus E11.9 Acute hyperkalemia E87.5 GUILLERMINA (acute kidney injury) N17.9 Acute respiratory failure with hypoxia J96.01 Malignant melanoma C43.9 Esophageal dysphagia R13.19 HTN (hypertension) I10 History of CVA (cerebrovascular accident) Z86.73 Hypothyroidism E03.9 DKA (diabetic ketoacidosis) E10.11 Diabetes mellitus complication detail: with coma Diabetes mellitus type: type 1 (1) Acute pancreatitis Acute pancreatitis complication: unspecified Pancreatitis type: unspecified pancreatitis type Qualified Code(s): K85.90 - Acute pancreatitis without nec rosis or infection, unspecified (18) DKA (diabetic ketoacidosis) Diabetes mellitus complication detail: with coma Diabetes mellitus type: type 1 Qualified Code(s): E10.11 - Type 1 diabetes mellitus with ketoacidosis with coma
--- NOTE | 2023-04-03 13:42 | Pharmacy Report ---
Pharmacy Glycemic Short Note 2 - Date of Service April 03, 2023 - Glycemic Short BSG Results (Last 24 hours): 04/02/23 04/03/23 04/03/23 17:52 00:21 05:44 Glucose POC Glucose 133 H 124 H 125 H 04/03/23 04/03/23 06:41 11:45 Glucose 132 H POC Glucose 149 H OUTPATIENT ANTIDIABETIC REGIMEN: * metformin 1000 mg PO BID * HBA1C = 7.6% (04/01/23) ASSESSMENT: 04/03 * Patient received total of 30 units of insulin yesterday, of which 25 units were basal insulin * Fasting BSG 125 mg/dL - only day 2 of starting basal insulin, not quite at steady state with dosing * Patient NPO this morning, confirmed with RN he will be NPO rest of the day. Will provide a reduced dose of basal insulin with dinner 04/01 * Mr Hill is a 72 y/o M with a PMH of T2DM who presents with severe panc reatitis. He was initiated on an insulin infusion. * This morning BSGs are stable, within goal range. Insulin infusion reduced to 1 unit/hr. * Patient transitioned from NPO to clear liquid diet at lunch. * Will transition to SQ insulin. Will start with Lantus 25 units (~ 1 unit/hr - also is slightly less than full weight-based stress of 2). Titrate tomorrow based upon BSGs and overnight requirements. * Novolog weight-based stress of 2-3. PLAN FOR INPATIENT GLYCEMIC CONTROL: * Hold outpatient oral diabetes medications * Basal insulin * Lantus 0-10 units daily at dinner * Bolus insulin * NovoLog per scale ACHS or Q6hrs while NPO * Goal Range: Low 110 mg/dL - High 140 mg/dL * Correction Factor: 25 mg/dL/unit * Nutritional / Prandial insulin per carb ratio of 1 unit per 6 grams CHO consumed
[2023-04-03] MEDS: PIPERACILLIN/TAZOBACTAM 4.5 GM in DEXTROSE 5% 100 ML IV SCH ×2 (14:39→20:36)
--- NOTE | 2023-04-03 15:54 | XRay Report ---
XR abdomen min 2V CLINICAL HISTORY: ileus, severe tenderness TECHNIQUE: 2 views of the abdomen were obtained. Comparison: Comparison is made to CT abdomen pelvis 04/02/2023 FINDINGS: Lung bases are unremarkable. Degenerative changes are seen in the visualized skeleton. Multiple gas-d istended loops of small bowel measure up to 43 mm in diameter. A moderate amount of stool is noted wi thin the large bowel. IMPRESSION: Multiple gas-distended loops of small bowel compatible with ileus in this patient with pancreatitis. ACT 112: Negative or not required by law. Electronically signed by: Humphrey Paiz M.D. 04/03/2023 3:53 PM
[2023-04-03] MEDS ORDERED: LANTUS PER UNIT CHARGE SC SCH ×2 (18:00)
[2023-04-04] MEDS: PIPERACILLIN/TAZOBACTAM 4.5 GM in DEXTROSE 5% 100 ML IV SCH ×3 (05:11→20:47)
[2023-04-04] MEDS ORDERED: TAMSULOSIN HCL 0.4 MG CAP PO ONE (05:27)
[2023-04-04] MEDS: INSULIN ASPART PER UNIT CHARGE SC SCH ×4 (06:05→23:45)
[2023-04-04 06:11] LABS: Appearance Urine Clear (Clear); Bacteria Urine Automated Negative (Negative); Bilirubin Urine Negative (Negative); Blood Urine 3+ (Negative); Color Urine Dark Yellow; Epithelial Cell Urine Auto >30 /lpf (0-5); Glucose Urine UA 3+ (Negative); Ketones Urine 1+ (Negative); Leukocyte Esterase Urine Trace (Negative); Nitrite Urine Negative (Negative); Protein Urine 2+ (Negative); Specific Gravity Urine 1.027 (1.000-1.030); Urobilinogen Urine Negative (Negative)
[2023-04-04] MEDS: LEVOTHYROXINE SODIUM 88 MCG TABLET PO SCH (06:45)
[2023-04-04 06:59] LABS: Basophils # (auto) 0.03 K/uL (0-0.2); Basophils % (auto) 0.2 %; Hematocrit (blood only) 40.8 % (42.0-52.0); Hemoglobin 14.1 g/dl (14.0-18.0); Immature Granulocytes # (auto) 0.11 K/uL (0.01-0.20); Immature Granulocytes % (auto) 0.8 %; Lymphocytes # (auto) 0.54 K/uL (1.2-3.4); Mean Corpuscular Hemoglobin 31.1 pg (25.0-34.0); Mean Corpuscular Hgb Conc 34.6 g/dL (32.0-36.0); Mean Corpuscular Volume 89.9 fL (80.0-100.0); Mean Platelet Volume 9.7 fL (9.4-12.4); Monocytes # (auto) 0.79 K/uL (0.11-0.59); Monocytes % (auto) 5.8 %; Neutrophils # (auto) 12.14 K/uL (1.40-6.50); Neutrophils % (auto) 89.2 %; Platelet Count 154 K/uL (130-400); RDW Standard Deviation 49.6 fL (36.4-46.3); Red Blood Count 4.54 M/uL (4.70-6.10); White Blood Count 13.61 K/ul (4.8-10.8)
[2023-04-04] MEDS: NSS + 20MEQ KCL 20 MEQ/1,000 ML BAG IV SCH ×2 (07:00→18:51)
[2023-04-04 07:28] LABS: Albumin Globulin Ratio 1.1 (0.9-2); Albumin Level 3.3 gm/dl (3.4-5.0); BUN Creatinine Ratio 18.9 (10-20); Bilirubin,Total 1.6 mg/dl (0.2-1.0); Calcium 7.3 mg/dl (8.6-10.3); Creatinine Clr Calc Pharmacy 59.4 ml/min; Est GFR (Non-African American) 56.1 ml/min; Globulin 3.1 gm/dl (2.5-4.0); Potassium 3.9 mmol/L (3.5-5.1); Total Protein 6.4 gm/dl (6.0-8.3)
[2023-04-04] MEDS: PHENAZOPYRIDINE HCL 200 MG TAB PO PRN (08:53)
[2023-04-04] MEDS: ENOXAPARIN INJ 40 MG/0.4 ML SYR SQ SCH (08:54)
[2023-04-04] MEDS: MAGNESIUM OXIDE 400 MG TAB PO SCH ×2 (08:54→20:16)
[2023-04-04] MEDS: FLUoxetine HCL 20 MG CAP PO SCH (08:54)
[2023-04-04] MEDS ORDERED: INDOMETHACIN 50 MG SUPP PR ONE ×2 (09:01→16:06)
--- NOTE | 2023-04-04 11:08 | Surgery Progress Note ---
Date of Service April 04, 2023 Assessment & Plan (1) Acute pancreatitis: Plan: Patient here with concern for gallstones pancreatitis Today's labs show WBC 13, Tb 1.6(1.6), lipase 24 Abdomen remains distended with generalized discomfort to palpation GI planning on performing ERCP sometime today We will f/u on ERCP results, however no plans for inpatient acute philly this admission. he may f/u with us as outpatient (2) Choledocholithiasis: Admission and Anticipated Discharge Date Admission Date: March 31, 2023 Supervising Physician Co-Signing Physician Notes I personally saw and evaluated the patient with Diana Laguerre PA-C and agree with assessment and plan. 72-year-old male with gallstone pancreatitis He is getting an ERCP today, we will follow-up these results With his fairly severe bout of pancreatitis, will hold off on cholecystectomy at this time No plans for cholecystectomy this admission We will continue to follow Subjective Patient says he feels okay. Not very talkative, offers no complaints. Discussed with RN, pt had large BM yesterday. Physical Exam Physical Exam: awake Constitutional: no acute distress Respiratory: normal respiratory effort Gastrointestinal (Abdomen): Inspection/Auscultation: + abdomen distended Percussion/Palpation: + abdomen tender (generalized discomfort throughout ) and abdomen soft Results & Data Vital Signs (Past 12 Hours) Vital Signs Temp Pulse Pulse Resp BP Pulse Ox O2 Del Method 04/04/23 08:35 36.8 C 74 18 131/72 93 Room Air 04/04/23 08:00 80 04/04/23 02:31 36.6 C 77 17 153/95 H 95 Room Air 04/04/23 00:00 72 PG Care Time/CCT Total # of Minutes Spent Total Time Spent with Patient: Total time spent is greater than 50% in coordination of care (as documented) at patient's floor/unit and/or counseling patient: Coding Level of Care Code 24715 SUB INP/OBS CARE 12/21MIN Diagnoses Acute pancreatitis K85.90 Acute pancreatitis complication: unspecified Pancreatitis type: unspecified pancreatitis type Choledocholithiasis K80.50 (1) Acute pancreatitis Acute pancreatitis complication: unspecified Pancreatitis type: unspecified pancreatitis type Qualified Code(s): K85.90 - Acute pancreatitis without necrosis or infection, unspecified
--- NOTE | 2023-04-04 12:30 | Gastroenterology Progress Note ---
Date of Service April 04, 2023 Assessment & Plan (1) SIRS (systemic inflammatory response syndrome): (2) Acute pancreatitis: Plan: Pt is a 72 yo male admitted w SIRS, found to have pancreatitis. LFTs up, but trending down. Noted on repeat CT study now with contrast that he may have 4mm CBD stone, so suspect he has gallstone pancreatitis. He is also noted to have ileus on CT. - IVF hydration - He was on Plavix and ASA for hx of stroke. Last dose of Plavix was 04/02. Keep NPO after midnight for ERCP today in OR by Dr. Perez. Consent should be obtained from his daughter, Gail, whose contact # is in chart. - Surgery to eval for possible cholecystectomy -> f/u in OP setting wo immediate plans for ph[place] - For ileus: encourage OOB, ambulation when mental status improve and if safe; keep K >4 to promote GI motility; avoid narcotic. KUB daily until resolution of ileus noted Admission and Anticipated Discharge Date Admission Date: March 31, 2023 Supervising Physician Co-Signing Physician Notes I performed a history and physical examination of the patient today, including specifically on physical exam - soft abdomen. I have discussed the patient's management with the advanced practitioner. Please refer to the nurse practitioner's note for the documented findings and plan of care. Spoke to his daughter and she consented for ERCP. Patient's daughter was explained in detail regarding risks, benefits, limitations and alternatives of the above endoscopic procedure. Risks of intravenous sedation used for procedure were also explained. Risks include, but not limited to perforation, bleeding, infection, respiratory distress, cardiac arrest and . Subjective Pt oriented to self and place only. He denies abd pain, n/v. Review of Systems Review of Systems: All systems reviewed & are unremarkable except as noted in HPI & below Physical Exam Constitutional: WD/WN, vitals as above well groomed, cooperative and comfortable Eyes: PERRL, conjunctivae normal, anicteric sclerae ENMT: external ear and nose normal, oropharynx normal Respiratory: normal respiratory effort, lungs clear to auscultation Cardiovascular: RRR, no murmur, no edema Gastrointestinal (Abdomen): TTP RLQ Skin: no rashes, warm and dry no jaundice Neurologic: Motor/Sensory: no asterixis oriented to self and place only Lymphatic: no lymphedema Results & Data Vital Signs (Past 12 Hours) Vital Signs Temp Pulse Pulse Resp BP Pulse Ox O2 Del Method 04/04/23 12:02 36.5 C 68 19 125/76 93 Room Air 04/04/23 08:35 36.8 C 74 18 131/72 93 Room Air 04/04/23 08:00 80 04/04/23 02:31 36.6 C 77 17 153/95 H 95 Room Air (2) Acute pancreatitis Acute pancreatitis complication: unspecified Pancreatitis type: unspecified pancreatitis type Qualified Code(s): K85.90 - Acute pancreatitis without necrosis or infection, unspecified
[2023-04-04] MEDS: PANTOprazole 40 MG in SYRINGE 0 ML IV SCH (13:00)
--- NOTE | 2023-04-04 13:16 | Hospitalist Progress Note ---
Date of Service April 04, 2023 Assessment & Plan (1) Acute pancreatitis: Plan: Peak lipase 2410. Lipase now normal today. However, patient still very ill with complicating ileus, sepsis, etc. Acute pancreatitis likely due to gallstones given the CT a/p findings on 04/02 showing concern for choledocholithiasis. GI following. Gen surg following. Is NPO for ERCP today. Cont IVF, supportive care, IV antibiotics. (2) Abdominal pain: Plan: Abdominal pain remains. Now localizing more so to the RUQ and high epigastric region. He is quite tender and even having some guarding. Concerning for cholecystitis. The ileus itself could be contributing as well. Serial abx x-rays noted. LFTs and lipase today noted. Leukocytosis noted. Check lactate and procalcitonin now. Cont IV zosyn. (3) Choledocholithiasis: Plan: Suspected, based on CT abd/pelvis 04/02/23. [facility] GI consult appreciated; ERCP planned for today. Cont IV zosyn. Cont IV fluids. Blood cx's from admission negative. LFTs/lipase/other labs noted today. (4) Sepsis: Plan: suspected with #3 could have element of infection due to biliary obstruction or even cholangitis can't fully rule out cholecystitis cont IV zosyn blood cx's negative to date (5) Ileus: Plan: 2nd to #1. Ongoing. NPO. Defer on NG tube unless he develops significant vomiting. Keep K and Mag wnl. Potassium wnl today. Abd x-rays from yesterday/today noted (ongoing ileus). Cont IV fluids. Cont supportive care. (6) Acute metabolic encephalopathy: Plan: 2nd to #1, #3, #4, etc Fortunately no agitation. Supportive care. Avoid sedatives/benzos. (7) Acute hepatitis: Plan: LFTs are about the same as yesterday. 2nd to #3. Check daily LFTs. Can't rule out a partially treated cholecystitis. (8) High anion gap metabolic acidosis: Plan: Present on admission. resolved. 2nd to DKA & lactic acidosis. (9) Type 2 diabetes mellitus: Plan: Hemoglobin A1C 7.6% this admission. Resolved DKA (had been on insulin infusion). Metformin is on hold. Cont bolus insulin therapy. Basal resumed by pharmacy glycemic team last pm. BSGs remain controlled. (10) Acute hyperkalemia: Plan: present on admission - resolved (11) GUILLERMINA (acute kidney injury): Plan: resolved - peak Cr had been 2.3, trended to <1, now back up over 1 today could be due to bender issues overnight could be due to ongoing sepsis/infection monitor closely consider repeating BMP later today (12) Acute respiratory failure with hypoxia: Plan: 2nd to acidosis at time of admission. required non-rebreather by report at time of ER presentation. resolved. He is 8+ liters positive for the admission and showing signs of 3rd spacing on exam and CT. Watch for development of pulmonary edema. (13) Malignant melanoma: Plan: back, s/p removal just prior to admission (14) Esophageal dysphagia: Plan: cont PPI (15) HTN (hypertension): Plan: Bps satisfactory JOSÉ MIGUEL inhibitor on hold (16) History of CVA (cerebrovascular accident): Plan: Currently on aspirin and Plavix - holding both due to need for ERCP (17) Hypothyroidism: Plan: Continue levothyroxine. TSH 0.192 - will not adjust at this time. Simply repeat as outpatient. (18) DKA (diabetic ketoacidosis): Plan: present on admission - resolved Plan VTE Prophylaxis - lovenox on hold for ERCP today pulmonary toilet with flutter valve and incentive spirometry if possible left message for pt's daughter, Gail, on her voicemail this afternoon following the ERCP Admission and Anticipated Discharge Date Admission Date: March 31, 2023 Subjective tele overnight wnl - no arrhythmia patient oriented to place but can't tell me any details about his stay other than "my belly" couldn't tell me the year but knew it was Monday had large BM yesterday per nursing staff despite the BM he c/o ongoing bloating and pain he now states the pain is worst over the RUQ denies dyspnea or chest pain no nausea or emesis Review of Systems Review of Systems: gen - feels poorly, weak cv - no cp pulm - no dyspnea at rest - voiding difficulties overnight; catheter was "blocked" by report and removed; since then unable to empty his bladder, only voiding 50cc or so each time with PVRs of 300cc+ GI - see HPI Physical Exam Physical Exam: gen - looks tired, weak, flushed on face, mild quiet tachypnea; mildly confused mouth - MMM neck - no JVD heart - RRR, s1 s2, no murmur lungs - CTA b/l, decreased BS bases with some rales abd - severely distended, BS+ and slightly higher pitched today; very tender with guarding over the RUQ and epigastric region, umbilical hernia remains reducible; no HSM; yesterday he was very tender in the LLQ and RLQ but not today ext - cool distal legs, pulses 1-2+ b/l skin - no jaundice; no rash eyes - no icterus Results & Data Results & Data Vital Signs (Past 12 Hours) Vital Signs Temp Pulse Pulse Resp BP Pulse Ox O2 Del Method 04/04/23 12:02 36.5 C 68 19 125/76 93 Room Air 04/04/23 08:35 36.8 C 74 18 131/72 93 Room Air 04/04/23 08:00 80 04/04/23 02:31 36.6 C 77 17 153/95 H 95 Room Air Laboratory Results Laboratory Results - last 24 hr 04/03/23 04/03/23 04/04/23 16:36 23:14 05:40 WBC RBC Hgb Hct MCV MCH MCHC RDW Std Deviation RDW Coeff of Dinorah Plt Count MPV Immature Gran % (Auto) Neut % (Auto) Lymph % (Auto) [place] % (Auto) Eos % (Auto) Baso % (Auto) Neut # (Auto) Lymph # (Auto) [place] # (Auto) Eos # (Auto) Baso # (Auto) Immature Gran # (Auto) Sodium Potassium Chloride Carbon Dioxide Anion Gap BUN Creatinine Est Cr Clr Drug Dosing Est GFR ( Amer) Est GFR (Non-Af Amer) BUN/Creatinine Ratio Glucose POC Glucose 169 H 170 H Calcium Total Bilirubin AST ALT Alkaline Phosphatase Total Protein Albumin Globulin Albumin/Globulin Ratio Lipase Urine Color Dark Yellow Urine Appearance Clear Urine pH 6.0 Ur Specific [place] 1.027 Urine Protein 2+ H Urine Glucose (UA) 3+ H Urine Ketones 1+ H Urine Blood 3+ H Urine Nitrite Negative Urine Bilirubin Negative Urine Urobilinogen Negative Ur Leukocyte Esterase Trace H Urine WBC (Auto) 5-10 H Urine RBC (Auto) 10-30 H U Hyaline Cast (Auto) 1-5 U Epithel Cells (Auto) >30 H Urine Bacteria (Auto) Negative Urine Yeast Not Reportable 04/04/23 04/04/23 04/04/23 05:54 06:36 06:36 WBC 13.61 H RBC 4.54 L Hgb 14.1 Hct 40.8 L MCV 89.9 MCH 31.1 MCHC 34.6 RDW Std Deviation 49.6 H RDW Coeff of Dinorah 15.0 H Plt Count 154 MPV 9.7 Immature Gran % (Auto) 0.8 Neut % (Auto) 89.2 Lymph % (Auto) 4.0 [place] % (Auto) 5.8 Eos % (Auto) 0.0 Baso % (Auto) 0.2 Neut # (Auto) 12.14 H Lymph # (Auto) 0.54 L [place] # (Auto) 0.79 H Eos # (Auto) 0.00 Baso # (Auto) 0.03 Immature Gran # (Auto) 0.11 Sodium 141 Potassium 3.9 Chloride 108 H Carbon Dioxide 23 Anion Gap 10 BUN 24 H Creatinine 1.27 D Est Cr Clr Drug Dosing 59.4 Est GFR ( Amer) 65.0 Est GFR (Non-Af Amer) 56.1 BUN/Creatinine Ratio 18.9 Glucose 85 POC Glucose 90 Calcium 7.3 L Total Bilirubin 1.6 H AST 26 ALT 98 H Alkaline Phosphatase 109 H Total Protein 6.4 Albumin 3.3 L Globulin 3.1 Albumin/Globulin Ratio 1.1 Lipase 24 Urine Color Urine Appearance Urine pH Ur Specific [place] Urine Protein Urine Glucose (UA) Urine Ketones Urine Blood Urine Nitrite Urine Bilirubin Urine Urobilinogen Ur Leukocyte Esterase Urine WBC (Auto) Urine RBC (Auto) U Hyaline Cast (Auto) U Epithel Cells (Auto) Urine Bacteria (Auto) Urine Yeast 04/04/23 12:36 WBC RBC Hgb Hct MCV MCH MCHC RDW Std Deviation RDW Coeff of Dinorah Plt Count MPV Immature Gran % (Auto) Neut % (Auto) Lymph % (Auto) [place] % (Auto) Eos % (Auto) Baso % (Auto) Neut # (Auto) Lymph # (Auto) [place] # (Auto) Eos # (Auto) Baso # (Auto) Immature Gran # (Auto) Sodium Potassium Chloride Carbon Dioxide Anion Gap BUN Creatinine Est Cr Clr Drug Dosing Est GFR ( Amer) Est GFR (Non-Af Amer) BUN/Creatinine Ratio Glucose POC Glucose 93 Calcium Total Bilirubin AST ALT Alkaline Phosphatase Total Protein Albumin Globulin Albumin/Globulin Ratio Lipase Urine Color Urine Appearance Urine pH Ur Specific [place] Urine Protein Urine Glucose (UA) Urine Ketones Urine Blood Urine Nitrite Urine Bilirubin Urine Urobilinogen Ur Leukocyte Esterase Urine WBC (Auto) Urine RBC (Auto) U Hyaline Cast (Auto) U Epithel Cells (Auto) Urine Bacteria (Auto) Urine Yeast PG Care Time/CCT Total # of Minutes Spent Total Time Spent with Patient: Total time spent is greater than 50% in coordination of care (as documented) at patient's floor/unit and/or counseling patient: Coding Level of Care Code 16365 SUB INP/OBS CARE 235MIN Diagnoses Acute pancreatitis K85.90 Acute pancreatitis complication: unspecified Pancreatitis type: unspecified pancreatitis type Abdominal pain R10.9 Choledocholithiasis K80.50 Sepsis A41.9 Ileus K56.7 Acute metabolic encephalopathy G93.41 Acute hepatitis B17.9 High anion gap metabolic acidosis E87.29 Type 2 diabetes mellitus E11.9 Acute hyperkalemia E87.5 GUILLERMINA (acute kidney injury) N17.9 Acute respiratory failure with hypoxia J96.01 Malignant melanoma C43.9 Esophageal dysphagia R13.19 HTN (hypertension) I10 History of CVA (cerebrovascular accident) Z86.73 Hypothyroidism E03.9 DKA (diabetic ketoacidosis) E10.11 Diabetes mellitus complication detail: with coma Diabetes mellitus type: type 1 (1) Acute pancreatitis Acute pancreatitis complication: unspecified Pancreatitis type: unspecified pancreatitis type Qualified Code(s): K85.90 - Acute pancreatitis without necrosis or infection, unspecified (18) DKA (diabetic ketoacidosis) Diabetes mellitus complication detail: with coma Diabetes mellitus type: type 1 Qualified Code(s): E10.11 - Type 1 diabetes mellitus with ketoacidosis with coma
--- NOTE | 2023-04-04 13:44 | XRay Report ---
KUB HISTORY: Acute generalized abdominal pain with distention re-eval ileus COMPARISON: Abdominal radiographs 04/03/2023, CT abdomen and pelvis 04/02/2023 FINDINGS: Persistent air-filled dilated loops of small bowel which measure up to 4.3 cm, similar to p rior. Air is also noted within nondilated loops of large bowel. No renal calculi. No ureteral calcul i. No pneumoperitoneum or pneumatosis. No fracture. IMPRESSION: Unchanged appearance of the persistent small bowel distention suggestive of ileus versus partial obst ruction. Continued follow-up recommended. ACT 112: Negative or not required by law. The above report was generated using voice recognition software. It may contain grammatical, syntax o r spelling errors. Electronically signed by: Shan Reed M.D. 04/04/2023 1:42 PM
[2023-04-04 15:42] LABS: 18KDIGG Band REACTIVE; 23KDIGG Band NON-REACTIVE; 23KDIGM Band REACTIVE; 28KDIGG Band NON-REACTIVE; 30KDIGG Band NON-REACTIVE; 39KDIGG Band NON-REACTIVE; 39KDIGM Band NON-REACTIVE; 41KDIGG Band REACTIVE; 41KDIGM Band NON-REACTIVE; 45KDIGG Band NON-REACTIVE; 58KDIGG Band REACTIVE; 66KDIGG Band NON-REACTIVE; 93KDIGG Band REACTIVE; Lyme Antibodies, WB IgG NEGATIVE (NEGATIVE); Lyme Antibodies, WB IgM NEGATIVE (NEGATIVE)
--- NOTE | 2023-04-04 16:05 | Anesthesiology Consultation ---
Date of Service April 04, 2023 Assessment & Plan (1) Encounter for pre-operative examination: Chart Review Chart Review: Acceptable Risk for Surgery History Surgery Operation Date: 04/04/23 07:00 Proposed Procedures p Endoscopic Retrograde Cholangiopancreato - Ollie Perez MD Height/Weight Height: 6 ft 1 in Weight: 88 kg Allergies Allergy/AdvReac Type Severity Reaction Status Date / Time No Known Allergies Allergy Verified 07/31/22 18:11 Medications Home Medications Medication Instructions Recorded Confirmed Last Taken clopidogrel 75 mg tablet 75 mg PO QAM 08/17/20 03/31/23 07/31/22 fluoxetine 20 mg capsule 20 mg PO QAM 08/17/20 03/31/23 07/31/22 lisinopril 10 mg tablet 10 mg PO QAM 08/17/20 03/31/23 07/31/22 metformin 500 mg tablet 1,000 mg PO BID 08/17/20 03/31/23 07/31/22 08:00 pantoprazole 40 mg tablet,delayed 40 mg PO DAILY #30 tabs 07/05/22 03/31/23 07/31/22 release aspirin 81 mg tablet,delayed 81 mg PO DAILY 03/31/23 03/31/23 Unknown release levothyroxine 88 mcg tablet 88 mcg PO DAILY 03/31/23 03/31/23 Unknown (Synthroid) magnesium oxide 400 mg PO BID 03/31/23 03/31/23 Unknown simvastatin 40 mg tablet 40 mg PO DAILY 03/31/23 03/31/23 Unknown tamsulosin 0.4 mg capsule 0.4 mg PO DAILY 03/31/23 03/31/23 Unknown Active Medications Generic Name Dose Route Start Last Admin Trade Name Freq PRN Reason Stop Dose Admin Aspirin 81 mg 04/01/23 09:00 04/02/23 08:32 Aspirin 81 Mg Ectab PO 05/01/23 08:59 81 mg DAILY SOLANGE Administration Clopidogrel Bisulfate 75 mg 04/01/23 09:00 04/02/23 08:31 Clopidogrel Bisulfate 75 Mg Tab PO 05/01/23 08:59 75 mg QAM SOLANGE Administration Enoxaparin Sodium 40 mg 04/02/23 09:00 04/04/23 08:54 Enoxaparin Inj 40 Mg/0.4 Ml Syr SQ 05/02/23 08:59 Not Given QAM SOLANGE Fluoxetine HCl 20 mg 04/01/23 09:00 04/04/23 08:54 Fluoxetine Hcl 20 Mg Cap PO 05/01/23 08:59 20 mg QAM SOLANGE Administration Piperacillin Sod/Tazobactam 120 mls @ 30 mls/hr 04/03/23 13:30 04/04/23 14:48 Sod 4.5 gm/ Dextrose IV 04/13/23 13:29 30 mls/hr Q8H SOLANGE Administration Protocol Pantoprazole Sodium 40 mg/ 10 mls @ 5 mls/min 04/03/23 11:00 04/04/23 13:00 Syringe IV 05/03/23 10:59 5 mls/min DAILY@1100 SOLANGE Administration Potassium Chloride/Sodium Chloride 20 meq in 1,000 mls @ 100 mls/hr 04/03/23 08:45 04/04/23 07:00 Normal Saline W/20 Meq Kcl IV 05/03/23 08:44 100 mls/hr .Q10H SOLANGE Administration Insulin Aspart 0 units 04/02/23 18:00 04/04/23 13:00 Insulin Aspart Per Unit Charge SC 05/02/23 17:59 Not Given Q6 SOLANGE Levothyroxine Sodium 88 mcg 04/01/23 06:30 04/04/23 06:45 Levothyroxine Sodium 88 Mcg Tablet PO 05/01/23 06:29 88 mcg DAILYBB SOLANGE Administration Magnesium Oxide 400 mg 03/31/23 21:00 04/04/23 08:54 Magnesium Oxide 400 Mg Tab PO 04/30/23 20:59 400 mg BID SOLANGE Administration Morphine Sulfate 2 mg 04/01/23 02:13 04/01/23 06:14 Morphine Sulfate 2 Mg/Ml Carp IV 04/15/23 02:12 2 mg Q4H PRN Administration Pain Ondansetron HCl 4 mg 04/01/23 02:37 04/01/23 03:04 Ondansetron Inj 2 Mg/Ml 2 Ml Vial IV 05/01/23 02:36 4 mg Q4H PRN Administration Nausea Phenazopyridine HCl 200 mg 04/04/23 05:14 04/04/23 08:53 Phenazopyridine Hcl 200 Mg Tab PO 05/04/23 05:13 200 mg TID PRN Administration urinary discomfort NPO Date Last Intake of Fluids: 05/08/23 Time Last Intake of Fluids: 23:55 Date Last Intake of Solids: 04/03/23 Time Last Intake of Solids: 23:55 Past Medical History Medical History (Updated 04/04/23 @ 16:05 by Chase Mcpherson MD) Acute pancreatitis Aneurysm pts daughter unsure what type, they are watching, follows w/ ange last visit 07/01/2022 Borderline hyperlipidemia Diabetes Enlarged prostate History of COVID-19 11/16- congestion; no hospitalization, no current issues HTN (hypertension) Hypothyroidism Malignant melanoma On anticoagulant therapy plavix Poor historian phone interview done by pts daughter, whom recently took over his medical/care information after of his Skin cancer 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 w/ immunotherapy completed tx over 1 year ago; follows w/ [facility] last visit 06/2022 TIA (transient ischemic attack) x2 last one 8-10yrs ago; has problems processing info and takes longer to pro cess, but can answer questions appropriately, per daughter Past Surgical History Surgical History S/P colonoscopy S/P hernia repair Social History Smoking Status: Unknown if ever smoked tobacco type: smokeless tobacco Do You Dip or Chew Tobacco: Yes Hx Alcohol Use: Yes Alcohol type: beer alcohol intake frequency: a few times a month Alcohol Intake Frequency Comment: couple beers last monday - dtr states he drinks a couple times a month Hx Substance Use: No substance use type: does not use Physical Exam Vital Signs Last Vital Signs Temp 36.7 C 04/04/23 15:59 Pulse 64 04/04/23 15:59 Resp 20 04/04/23 15:59 BP 119/76 04/04/23 15:59 Pulse Ox 95 04/04/23 15:59 O2 Del Method Room Air 04/04/23 15:59 O2 Flow Rate 2 04/01/23 08:00 FiO2 50 03/31/23 20:51 Testing Laboratory Results 04/04/23 06:36 04/04/23 06:36 PT 13.6 Seconds (9.0-12.0) H 04/01/23 04:50 INR 1.3 (0.9-1.1) H 04/01/23 04:50 APTT 26.2 Seconds (21.0-31.0) 03/31/23 16:50 Hemoglobin A1c 7.6 % (4.5-5.6) H 04/01/23 04:50 Urine Color Dark Yellow 04/04/23 05:40 Urine Appearance Clear (Clear) 04/04/23 05:40 Urine pH 6.0 (4.5-7.5) 04/04/23 05:40 Ur Specific [place] 1.027 (1.000-1.030) 04/04/23 05:40 Urine Protein 2+ (Negative) H 04/04/23 05:40 Urine Glucose (UA) 3+ (Negative) H 04/04/23 05:40 Urine Ketones 1+ (Negative) H 04/04/23 05:40 Urine Nitrite Negative (Negative) 04/04/23 05:40 Ur Leukocyte Esterase Trace (Negative) H 04/04/23 05:40 Urine WBC (Auto) 5-10 /hpf (0-5) H 04/04/23 05:40 Urine RBC (Auto) 10-30 /hpf (0-4) H 04/04/23 05:40 U Hyaline Cast (Auto) 1-5 /lpf (0-5) 04/04/23 05:40 U Epithel Cells (Auto) >30 /lpf (0-5) H 04/04/23 05:40 Urine Bacteria (Auto) Negative (Negative) 04/04/23 05:40 03/31/23 17:20 Aerobic Blood Culture - Preliminary Blood No growth in Aerobic bottle after 48 hours. Anaerobic Blood Culture - Preliminary No growth in Anaerobic bottle after 48 hours. 03/31/23 17:18 Aerobic Blood Culture - Preliminary Blood No growth in Aerobic bottle after 48 hours. Anaerobic Blood Culture - Final 04/04/23 04/04/23 12:36 05:54 POC Glucose 93 90
[2023-04-04] MEDS ORDERED: fentaNYL citrate PF 100 MCG/2 ML VIAL IV PRN (16:07)
[2023-04-04] MEDS ORDERED: ATROPINE SULFATE 0.1 MG/ML 10ML SYR IV PRN (16:07)
[2023-04-04] MEDS ORDERED: ONDANSETRON INJ 2 MG/ML 2 ML VIAL IV PRN (16:07)
[2023-04-04] MEDS ORDERED: ONDANSETRON INJ 2 MG/ML 2 ML VIAL ONE (17:03)
[2023-04-04] MEDS ORDERED: LIDOCAINE 2% 2 ML VIAL/AMP(20MG/ML) INFIL ONE (17:03)
[2023-04-04] MEDS ORDERED: DEXAMETHASONE SOD INJ 4 MG/ML VIAL ONE (17:03)
[2023-04-04] MEDS ORDERED: PROPOFOL IV EMULSION 10 MG/ML 20 ML VIAL IV ONE (17:03)
[2023-04-04] MEDS ORDERED: fentaNYL citrate PF 100 MCG/2 ML VIAL ONE (17:04)
[2023-04-04] MEDS ORDERED: SUCCINYLCHOLINE CHLORIDE 20 MG/ML 10 ML VIAL IV ONE (17:04)
[2023-04-04] MEDS ORDERED: LARYING-O-JET KIT (LTA) ONE (17:04)
[2023-04-04] MEDS ORDERED: ROCURONIUM BROMIDE 10 MG/ML 5 ML VIAL IV ONE (17:04)
--- NOTE | 2023-04-04 17:46 | Operative Report ---
Post Operative Report Pre & Post Diagnosis Operation Date: 04/04/23 07:00 Pre-Op Diagnosis: Multiorgan failure, sepsis Post-Op Diagnosis: Multiorgan failure, sepsis I identified the patient and participated in the time-out.: Yes Procedure Operation Date: 04/04/23 07:00 Actual Procedures p Endoscopic Retrograde Cholangiopancreatotomy(Not Applicable) - Ollie Perez MD Surgeon Ollie ePrez MD Hand Chain Maker None Estimated Blood Loss 0 Findings See Below (CBD stones removed, stent placed.) Specimens None Description of Procedure ERCP I attest to the content of the Intraoperative Record and any orders documented therein. Any exceptions are noted below.
--- NOTE | 2023-04-04 17:52 | GI REPORT ---
Patient Name: Payma Hill Procedure Date: 04/04/2023 4:56 PM Date of : 1950 Admit Type: Inpatient Age: 72 Gender: Male Attending MD: Ollie Perez MD, Procedure: ERCP Providers: Ollie Perez MD Referring MD: Casey Falcon Indications: For therapy of bile duct stone(s) Medicines: General Anesthesia Complications: No immediate complications. Estimated Blood Loss: Estimated blood loss: none. Procedure: Pre-Anesthesia Assessment: - Prior to the procedure, a History and Physical was performed, and patient medications, allergies and sensitivities were reviewed. The patient's tolerance of previous anesthesia was reviewed. - The risks and benefits of the procedure and the sedation options and risks were discussed with the patient. All questions were answered and informed consent was obtained. - Patient identification and proposed procedure were verified prior to the procedure by the physician and the nurse. The procedure was verified in the procedure room. - Pre-procedure physical examination revealed no contraindications to sedation. After obtaining informed consent, the scope was passed under direct vision. Throughout the procedure, the patient's blood pressure, pulse, and oxygen saturations were monitored continuously. The Duodenoscope was introduced through the mouth, and advanced to the duodenum and used to inject contrast into the bile duct. The ERCP was accomplished without difficulty. The patient tolerated the procedure well. Findings: The type proof reproducer film was normal. The esophagus was successfully intubated under direct vision. The scope was advanced to a normal major papilla in the descending duodenum without detailed examination of the pharynx, larynx and associated structures, and upper GI tract. The upper GI tract was grossly normal. A 0.025 inch x 270 cm angled Visiglide wire was passed into the biliary tree. The short-nosed traction sphincterotome was passed over the guidewire and the bile duct was then deeply cannulated. Contrast was injected. I personally interpreted the bile duct images. Ductal flow of contrast was adequate. Image quality was adequate. Contrast extended to the main bile duct. Opacification of the entire biliary tree was successful. The maximum diameter of the ducts was 9 mm. Biliary sphincterotomy was made with a monofilament traction (standard) sphincterotome using ERBE electrocautery. There was no post-sphincterotomy bleeding. The biliary tree was swept with a 12 mm balloon starting at the bifurcation. Two stones were removed. No stones remained. One 7 Fr by 7 cm plastic biliary stent with a single external pigtail and a single internal pigtail was placed into the common bile duct. Bile flowed through the stent. The stent was in good position. Impression: - Choledocholithiasis was found. Complete removal was accomplished by biliary sphincterotomy and balloon extraction. - One plastic biliary stent was placed into the common bile duct. Recommendation: - Return patient to hospital [facility] for ongoing care. - Repeat ERCP in 3 months to remove stent. - Follow up with general surgery for cholecystectomy. Ollie Perez MD 04/04/2023 5:51:34 PM This report has been signed electronically. Note Initiated On: 04/04/2023 4:56 PM Number of Addenda: 0 I attest to the content of the Intraoperative Record and orders documented therein, exceptions below {[id number]}
--- NOTE | 2023-04-04 18:38 | Anesthesiology Progress Note ---
Date of Service April 04, 2023 Anesthesia Post Procedure Vital Signs Vital Signs: Temp Pulse Pulse Resp BP BP Pulse Ox 04/04/23 18:35 36.5 C 68 24 123/77 93 04/04/23 18:25 71 22 120/71 95 04/04/23 18:15 70 23 118/79 96 04/04/23 18:06 36.2 C L 70 16 126/80 96 04/04/23 15:59 36.7 C 64 20 119/76 119/76 95 04/04/23 12:02 36.5 C 68 19 125/76 93 04/04/23 08:35 36.8 C 74 18 131/72 93 04/04/23 08:00 80 04/04/23 02:31 36.6 C 77 17 153/95 H 95 04/04/23 00:00 72 04/03/23 20:00 04/03/23 23:02 36.5 C 80 20 152/89 H 95 04/03/23 19:07 36.7 C 80 18 152/93 H 93 O2 Del Method O2 Flow Rate 04/04/23 18:35 Room Air 04/04/23 18:25 Oxymask 5 04/04/23 18:15 Oxymask 5 04/04/23 18:06 Oxymask 5 04/04/23 15:59 Room Air 04/04/23 12:02 Room Air 04/04/23 08:35 Room Air 04/04/23 08:00 04/04/23 02:31 Room Air 04/04/23 00:00 04/03/23 20:00 Room Air 04/03/23 23:02 Room Air 04/03/23 19:07 Room Air Pain Intensity Abdomen: Pain Intensity: 0 Transfer of Care Handoff Completed per policy Notes Mental Status: alert / awake / arousable Patient Amnestic to Procedure: Yes Nausea / Vomiting: adequately controlled Pain: adequately controlled Airway Patency, RR, SpO2: stable & adequate BP & HR: stable & adequate Hydration State: stable & adequate Anesthetic Complications: no major complications apparent
--- NOTE | 2023-04-04 18:51 | Fluoroscopy Report ---
[place] ERCP biliary ductal CLINICAL HISTORY: EXPLORE DUCTS TECHNIQUE: 8 views were obtained with the C-arm in the OR with the above procedure. Total fluoroscopy time was 2 minutes 37 seconds. Radiation dose was 84.8 mGy. Comparison: None available at the time of this dictation. FINDINGS/IMPRESSION: Intraoperative images were obtained of ERCP. A biliary stent is noted in the fin al images. Please correlate with intraoperative fluoroscopy and operative report. ACT 112: Negative or not required by law. Electronically signed by: Humphrey Paiz M.D. 04/04/2023 6:50 PM
[2023-04-05] MEDS: NSS + 20MEQ KCL 20 MEQ/1,000 ML BAG IV SCH ×2 (04:28→14:57)
[2023-04-05] MEDS: PIPERACILLIN/TAZOBACTAM 4.5 GM in DEXTROSE 5% 100 ML IV SCH ×3 (06:06→21:13)
[2023-04-05] MEDS: INSULIN ASPART PER UNIT CHARGE SC SCH ×3 (06:18→21:00)
[2023-04-05 07:08] LABS: Basophils # (auto) 0.02 K/uL (0-0.2); Basophils % (auto) 0.2 %; Eosinophils # (auto) 0.01 K/uL (0-0.50); Eosinophils % (auto) 0.1 %; Hematocrit (blood only) 37.8 % (42.0-52.0); Hemoglobin 12.6 g/dl (14.0-18.0); Immature Granulocytes # (auto) 0.07 K/uL (0.01-0.20); Immature Granulocytes % (auto) 0.6 %; Lymphocytes # (auto) 0.72 K/uL (1.2-3.4); Lymphocytes % (auto) 6.4 %; Mean Corpuscular Hemoglobin 30.7 pg (25.0-34.0); Mean Corpuscular Hgb Conc 33.3 g/dL (32.0-36.0); Mean Platelet Volume 10.4 fL (9.4-12.4); Monocytes # (auto) 0.66 K/uL (0.11-0.59); Monocytes % (auto) 5.9 %; Neutrophils # (auto) 9.74 K/uL (1.40-6.50); Neutrophils % (auto) 86.8 %; Platelet Count 151 K/uL (130-400); RDW Standard Deviation 50.7 fL (36.4-46.3); Red Blood Count 4.11 M/uL (4.70-6.10); White Blood Count 11.22 K/ul (4.8-10.8)
[2023-04-05] MEDS: LEVOTHYROXINE SODIUM 88 MCG TABLET PO SCH (07:14)
[2023-04-05 07:27] LABS: Albumin Level 2.9 gm/dl (3.4-5.0); BUN Creatinine Ratio 28.6 (10-20); Bilirubin,Total 1.1 mg/dl (0.2-1.0); Calcium 6.9 mg/dl (8.6-10.3); Creatinine Clr Calc Pharmacy 107.8 ml/min; Est GFR (African American) 109.3 ml/min; Est GFR (Non-African American) 94.3 ml/min; Globulin 2.8 gm/dl (2.5-4.0); Potassium 4.1 mmol/L (3.5-5.1); Total Protein 5.7 gm/dl (6.0-8.3)
[2023-04-05] MEDS: FLUoxetine HCL 20 MG CAP PO SCH (08:07)
[2023-04-05] MEDS ORDERED: STAT IV STA (08:22)
[2023-04-05] MEDS ORDERED: CALCIUM GLUCONATE 10% 2,000 MG in DEXTROSE 5% 50 ML IV ONE (08:22)
[2023-04-05] MEDS: MAGNESIUM OXIDE 400 MG TAB PO SCH ×2 (08:36→21:08)
--- NOTE | 2023-04-05 10:24 | Gastroenterology Progress Note ---
Date of Service April 05, 2023 Assessment & Plan (1) SIRS (systemic inflammatory response syndrome): (2) Acute pancreatitis: Plan: Pt is a 72 yo male admitted w SIRS, found to have pancreatitis. LFTs up, but trending down. Noted on repeat CT study now with contrast that he may have 4mm CBD stone, so suspect he has gallstone pancreatitis. He is also noted to have ileus on CT. S/P ERCP w choledocholithiasis removal, biliary sphincterectomy, CBD stent placement LFTs trending down. Pt not having abd pain, n/v. - IV antibx - Surgery to eval for possible cholecystectomy -> f/u in OP setting wo immediate plans for [place] - For ileus: encourage OOB, ambulation when mental status improve and if safe; keep K >4 to promote GI motility; avoid narcotic. KUB daily until resolution of ileus noted - Repeat ERCP in 3 months to remove biliary stent - GI sign off; pls recall prn Admission and Anticipated Discharge Date Admission Date: March 31, 2023 Supervising Physician Co-Signing Physician Notes Kimberly was seen and examined with ALPHONSO Jhaveri whose ntoe reflects our findings and plan. Subjective Pt denies abd pain, n/v. Feel hungry. LFTs trending down Review of Systems Review of Systems: All systems reviewed & are unremarkable except as noted in HPI & below Physical Exam Constitutional: WD/WN, vitals as above well groomed, cooperative and comfortable Eyes: PERRL, conjunctivae normal, anicteric sclerae ENMT: external ear and nose normal, oropharynx normal Respiratory: normal respiratory effort, lungs clear to auscultation Cardiovascular: RRR, no murmur, no edema Gastrointestinal (Abdomen): normal bowel sounds, soft, nontender, no hepatosplenomegaly Skin: no rashes, warm and dry no jaundice Neurologic: Motor/Sensory: no asterixis oriented to self and place only Lymphatic: no lymphedema Results & Data Vital Signs (Past 12 Hours) Vital Signs Temp Pulse Pulse Resp BP Pulse Ox O2 Del Method 04/05/23 08:00 71 04/05/23 07:34 36.6 C 67 18 135/81 95 Room Air 04/05/23 03:56 36.7 C 71 20 135/78 95 Room Air 04/04/23 23:00 65 04/04/23 22:57 36.6 C 73 22 130/75 94 Room Air (2) Acute pancreatitis Acute pancreatitis complication: unspecified Pancreatitis type: unspecified pancreatitis type Qualified Code(s): K85.90 - Acute pancreatitis without necrosis or infection, unspecified
--- NOTE | 2023-04-05 10:29 | Surgery Progress Note ---
Date of Service April 05, 2023 Assessment & Plan (1) Acute pancreatitis: Plan: Patient here with concern for gallstones pancreatitis S/p ERCP yesterday with confirmed choledocholithiasis Today's labs show WBC 11(13), Tb 1.1 (1.6) Abdomen remains distended with improved discomfort this AM. He is passing some flatus No plans for lap ph[place] while in house, may recover from his ailments and f/u with us as an outpatient Admission and Anticipated Discharge Date Admission Date: March 31, 2023 Supervising Physician Co-Signing Physician Notes I personally saw and evaluated the patient with Diana Laguerre PA-C and agree with assessment and plan. 72-year-old male with gallstone pancreatitis status post ERCP yesterday ERCP results and images personally viewed by myself, he has a patent cystic duct therefore no acute cholecystitis He is improved today and has less tenderness on exam He is tolerating clear liquids, can likely advance as tolerated No plans for cholecystectomy this admission Plan would be to have him recover from his severe pancreatitis and have him see me in the office to discuss elective cholecystectomy Subjective Patient says pain improved. Tolerating liquid diet. No n/v. Passing flatus. Physical Exam Physical Exam: appears more awake/alert than yesterday Respiratory: normal respiratory effort Gastrointestinal (Abdomen): Inspection/Auscultation: + abdomen distended Percussion/Palpation: + abdomen tender (improved generalized discomfort to palpation) and abdomen soft Results & Data Vital Signs (Past 12 Hours) Vital Signs Temp Pulse Pulse Resp BP Pulse Ox O2 Del Method 04/05/23 08:00 71 04/05/23 07:34 36.6 C 67 18 135/81 95 Room Air 04/05/23 03:56 36.7 C 71 20 135/78 95 Room Air 04/04/23 23:00 65 04/04/23 22:57 36.6 C 73 22 130/75 94 Room Air PG Care Time/CCT Total # of Minutes Spent Total Time Spent with Patient: Total time spent is greater than 50% in coordination of care (as documented) at patient's floor/unit and/or counseling patient: Coding Level of Care Code 20509 SUB INP/OBS CARE 1/25MIN Diagnoses Acute pancreatitis K85.90 Acute pancreatitis complication: unspecified Pancreatitis type: unspecified pancreatitis type (1) Acute pancreatitis Acute pancreatitis complication: unspecified Pancreatitis type: unspecified pancreatitis type Qualified Code(s): K85.90 - Acute pancreatitis without necrosis or infection, unspecified
[2023-04-05 11:16] LABS: Magnesium 2.1 mg/dl (1.7-2.4)
[2023-04-05] MEDS ORDERED: Nursing to Pharmacy Communication SCH (11:45)
[2023-04-05] MEDS: PANTOprazole 40 MG in SYRINGE 0 ML IV SCH (13:07)
--- NOTE | 2023-04-05 17:10 | Hospitalist Progress Note ---
Date of Service April 05, 2023 Assessment & Plan (1) Acute pancreatitis: Plan: Peak lipase 2410. Lipase has normalized. Course complicated by ileus, sepsis, etc. Acute pancreatitis likely due to gallstones given the choledocholithiasis as confirmed on ERCP. GI following. Gen surg following. He is 10+ liters positive for this stay -- lower fluid rate to 50cc/hr. Mild drop in HCO3 noted -- change NSS to LR. Cont supportive care and IV antibiotics. (2) Abdominal pain: Plan: Abdominal pain much improved today s/p ERCP yesterday and also with biochemical resolution of acute pancreatitis. The guarding he had yesterday is resolved. He tolerated clears today without any pain. LFTs mildly high but stable. Leukocytosis slightly improved. Lactate yesterday normal. Procal has trended down nicely. Cont IV zosyn - he is about day 5-6 today (had 1 day where he had no IV abx). (3) Choledocholithiasis: Plan: s/p ERCP yesterday with 2 stones removed and stent placed. Appreciate [facility] GI consult and assistance. Cont IV zosyn and IVF as above. Can likely change to PO abx in a couple of days once PO intake improves and ileus is better. Blood cx's from admission negative. Repeat LFTs am. (4) Sepsis: Plan: suspected can't fully rule out cholecystitis no purulent bile on ERCP yesterday thus no cholangitis cont IV zosyn blood cx's negative to date plan 10 days of IV/PO abx in total (5) Ileus: Plan: 2nd to #1. Ongoing. But finally passing stools. Clears started & he is tolerating such. Defer diet advancement to GI/gen surg. Cont IV fluids. Cont supportive care. (6) Acute metabolic encephalopathy: Plan: 2nd to #1, #3, #4, etc Fortunately no agitation. Improving albeit slowly. Supportive care. Avoid sedatives/benzos. (7) Acute hepatitis: Plan: LFTs are about the same as yesterday. 2nd to #3. Check daily LFTs. Can't rule out a partially treated cholecystitis. (8) High anion gap metabolic acidosis: Plan: Present on admission. resolved. 2nd to DKA & lactic acidosis. (9) Type 2 diabetes mellitus: Plan: Hemoglobin A1C 7.6% this admission. Resolved DKA (had been on insulin infusion). Metformin is on hold. Cont bolus insulin therapy. BSGs remain controlled. (10) Acute hyperkalemia: Plan: present on admission - resolved (11) GUILLERMINA (acute kidney injury): Plan: resolved - peak Cr had been 2.3, trended to <1 BMP am (12) Acute respiratory failure with hypoxia: Plan: 2nd to acidosis at time of admission. required non-rebreather by report at time of ER presentation. resolved. He is 10+ liters positive for the admission and showing signs of 3rd spacing on exam and CT. CXR obtained today without edema or large effusions but [id number] lower fluid rate to 50cc/hr. (13) Malignant melanoma: Plan: back, s/p removal just prior to admission (14) Esophageal dysphagia: Plan: cont PPI (15) HTN (hypertension): Plan: Bps satisfactory JOSÉ MIGUEL inhibitor on hold (16) History of CVA (cerebrovascular accident): Plan: Currently on aspirin and Plavix - holding both due to recent ERCP (17) Hypothyroidism: Plan: Continue levothyroxine. TSH 0.192 - will not adjust at this time. Simply repeat as outpatient. (18) DKA (diabetic ketoacidosis): Plan: present on admission - resolved (19) Hypocalcemia: Plan: calcium gluconate 2gm IV x 1 repeat calcium level am Plan VTE Prophylaxis - resume SC lovenox today pulmonary toilet with flutter valve and incentive spirometry spoke with pt's daughter, Gail this pm; update given PT, OT when able Admission and Anticipated Discharge Date Admission Date: March 31, 2023 Subjective tele overnight wnl per staff had LARGE liquid BM today patient still distended & bloated but did tolerate some jello today no nausea no vomiting upper abd pain is resolved still confused - can't tell me really why he is here other than "my belly" took him a while to remember it was May Review of Systems Review of Systems: gen - very tired, weak cv - no cp pulm - a little dyspneic at times but no cough GI - denies pain today - bender in place Physical Exam Physical Exam: gen - looks a little better today; still flushed; still with "quiet" tachypnea mouth - MMM neck - no JVD heart - RRR, s1 s2, no murmur lungs - CTA b/l, decreased BS bases; gets tachypneic with moving in bed abd - severely distended -scantly better today; still with decreased BS+; no tenderness today; no guarding today; umbilical hernia remains reducible; no HSM ext - pulses 2+ b/l skin - no jaundice; no rash eyes - no icterus psych - slightly less confused today than prior exams Results & Data Results & Data Vital Signs (Past 12 Hours) Vital Signs Temp Pulse Pulse Resp BP Pulse Ox O2 Del Method 04/05/23 16:01 36.5 C 72 18 164/79 H 97 Room Air 04/05/23 15:46 70 04/05/23 11:28 36.4 C L 67 19 148/84 H 94 Room Air 04/05/23 08:00 71 04/05/23 07:34 36.6 C 67 18 135/81 95 Room Air Laboratory Results Laboratory Results - last 24 hr 04/04/23 04/04/23 04/05/23 18:08 23:36 06:12 WBC RBC Hgb Hct MCV MCH MCHC RDW Std Deviation RDW Coeff of Dinorah Plt Count MPV Immature Gran % (Auto) Neut % (Auto) Lymph % (Auto) [place] % (Auto) Eos % (Auto) Baso % (Auto) Neut # (Auto) Lymph # (Auto) [place] # (Auto) Eos # (Auto) Baso # (Auto) Immature Gran # (Auto) Sodium Potassium Chloride Carbon Dioxide Anion Gap BUN Creatinine Est Cr Clr Drug Dosing Est GFR ( Amer) Est GFR (Non-Af Amer) BUN/Creatinine Ratio Glucose POC Glucose 102 H 110 H 114 H Calcium Magnesium Total Bilirubin AST ALT Alkaline Phosphatase Total Protein Albumin Globulin Albumin/Globulin Ratio 04/05/23 04/05/23 04/05/23 06:13 06:13 07:31 WBC 11.22 H RBC 4.11 L Hgb 12.6 L Hct 37.8 L MCV 92.0 MCH 30.7 MCHC 33.3 RDW Std Deviation 50.7 H RDW Coeff of Dinorah 15.0 H Plt Count 151 MPV 10.4 Immature Gran % (Auto) 0.6 Neut % (Auto) 86.8 Lymph % (Auto) 6.4 [place] % (Auto) 5.9 Eos % (Auto) 0.1 Baso % (Auto) 0.2 Neut # (Auto) 9.74 H Lymph # (Auto) 0.72 L [place] # (Auto) 0.66 H Eos # (Auto) 0.01 Baso # (Auto) 0.02 Immature Gran # (Auto) 0.07 Sodium 142 Potassium 4.1 Chloride 112 H Carbon Dioxide 19 L Anion Gap 11 BUN 20 Creatinine 0.70 D Est Cr Clr Drug Dosing 107.8 Est GFR ( Amer) 109.3 Est GFR (Non-Af Amer) 94.3 BUN/Creatinine Ratio 28.6 H Glucose 110 H POC Glucose 109 H Calcium 6.9 L Magnesium 2.1 Total Bilirubin 1.1 H AST 29 ALT 71 H Alkaline Phosphatase 116 H Total Protein 5.7 L Albumin 2.9 L Globulin 2.8 Albumin/Globulin Ratio 1.0 04/05/23 04/05/23 11:25 16:14 WBC RBC Hgb Hct MCV MCH MCHC RDW Std Deviation RDW Coeff of Dinorah Plt Count MPV Immature Gran % (Auto) Neut % (Auto) Lymph % (Auto) [place] % (Auto) Eos % (Auto) Baso % (Auto) Neut # (Auto) Lymph # (Auto) [place] # (Auto) Eos # (Auto) Baso # (Auto) Immature Gran # (Auto) Sodium Potassium Chloride Carbon Dioxide Anion Gap BUN Creatinine Est Cr Clr Drug Dosing Est GFR ( Amer) Est GFR (Non-Af Amer) BUN/Creatinine Ratio Glucose POC Glucose 147 H 141 H Calcium Magnesium Total Bilirubin AST ALT Alkaline Phosphatase Total Protein Albumin Globulin Albumin/Globulin Ratio PG Care Time/CCT Total # of Minutes Spent Total Time Spent with Patient: Total time spent is greater than 50% in coordination of care (as documented) at patient's floor/unit and/or counseling patient: Coding Level of Care Code 16328 SUB INP/OBS CARE 3/50MIN Diagnoses Acute pancreatitis K85.90 Acute pancreatitis complication: unspecified Pancreatitis type: unspecified pancreatitis type Abdominal pain R10.9 Choledocholithiasis K80.50 Sepsis A41.9 Ileus K56.7 Acute metabolic encephalopathy G93.41 Acute hepatitis B17.9 High anion gap metabolic acidosis E87.29 Type 2 diabetes mellitus E11.9 Acute hyperkalemia E87.5 GUILLERMINA (acute kidney injury) N17.9 Acute respiratory failure with hypoxia J96.01 Malignant melanoma C43.9 Esophageal dysphagia R13.19 HTN (hypertension) I10 History of CVA (cerebrovascular accident) Z86.73 Hypothyroidism E03.9 DKA (diabetic ketoacidosis) E10.11 Diabetes mellitus complication detail: with coma Diabetes mellitus type: type 1 Hypocalcemia E83.51 (1) Acute pancreatitis Acute pancreatitis complication: unspecified Pancreatitis type: unspecified pancreatitis type Qualified Code(s): K85.90 - Acute pancreatitis without necrosis or infection, unspecified (18) DKA (diabetic ketoacidosis) Diabetes mellitus complication detail: with coma Diabetes mellitus type: type 1 Qualified Code(s): E10.11 - Type 1 diabetes mellitus with ketoacidosis with coma
[2023-04-05] MEDS: LACTATED RINGER'S 1,000 ML IV SCH (17:18)
[2023-04-05] MEDS ORDERED: ENOXAPARIN INJ 40 MG/0.4 ML SYR SQ ONE (17:45)
--- NOTE | 2023-04-05 17:53 | XRay Report ---
XR chest 1V portable HISTORY: 72 years-old Male fluid overload, tachypnea acute shortness of breath COMPARISON: March 31, 2023 TECHNIQUE: AP view of the chest FINDINGS: Cardiac silhouette is enlarged. Atherosclerosis of the aorta. Surgical clips of the left axilla. No p neumothorax. Trace pleural effusion suggested. No pneumothorax or overt pulmonary edema. Degenerative changes of the shoulders and spine. IMPRESSION: 1. Cardiomegaly without overt pulmonary edema. 2. Trace pleural effusions. ACT 112: Negative or not required by law. The above report was generated using voice recognition software. It may contain grammatical, syntax o r spelling errors. Electronically signed by: Shan Reed M.D. 04/05/2023 5:51 PM
[2023-04-05] MEDS: MELATONIN 3 MG TAB PO SCH (21:08)
[2023-04-06] MEDS: LEVOTHYROXINE SODIUM 88 MCG TABLET PO SCH (05:40)
[2023-04-06] MEDS: PIPERACILLIN/TAZOBACTAM 4.5 GM in DEXTROSE 5% 100 ML IV SCH ×3 (05:40→21:16)
[2023-04-06 08:22] LABS: Babesia microti DNA Not Detected (Not Detected)
[2023-04-06] MEDS: INSULIN ASPART PER UNIT CHARGE SC SCH ×4 (08:23→21:07)
[2023-04-06] MEDS: ENOXAPARIN INJ 40 MG/0.4 ML SYR SQ SCH (08:57)
[2023-04-06 08:58] LABS: Basophils # (auto) 0.03 K/uL (0-0.2); Basophils % (auto) 0.3 %; Eosinophils # (auto) 0.02 K/uL (0-0.50); Eosinophils % (auto) 0.2 %; Hematocrit (blood only) 37.2 % (42.0-52.0); Hemoglobin 12.4 g/dl (14.0-18.0); Immature Granulocytes # (auto) 0.07 K/uL (0.01-0.20); Immature Granulocytes % (auto) 0.7 %; Lymphocytes % (auto) 6.6 %; Mean Corpuscular Hemoglobin 30.8 pg (25.0-34.0); Mean Corpuscular Hgb Conc 33.3 g/dL (32.0-36.0); Mean Corpuscular Volume 92.5 fL (80.0-100.0); Mean Platelet Volume 9.5 fL (9.4-12.4); Monocytes # (auto) 0.66 K/uL (0.11-0.59); Monocytes % (auto) 6.3 %; Neutrophils # (auto) 9.08 K/uL (1.40-6.50); Neutrophils % (auto) 85.9 %; Platelet Count 158 K/uL (130-400); RDW Coefficient of Variation 14.9 % (11.5-14.5); RDW Standard Deviation 50.8 fL (36.4-46.3); Red Blood Count 4.02 M/uL (4.70-6.10); White Blood Count 10.56 K/ul (4.8-10.8)
[2023-04-06] MEDS: MAGNESIUM OXIDE 400 MG TAB PO SCH ×2 (08:58→21:11)
[2023-04-06] MEDS: FLUoxetine HCL 20 MG CAP PO SCH (08:58)
--- NOTE | 2023-04-06 09:13 | Surgery Progress Note ---
Date of Service April 06, 2023 Assessment & Plan (1) Acute pancreatitis: Plan: He is improving slowly and tolerating clear liquid diet Can advance his diet as tolerated Again there is no plans for cholecystectomy this admission, can restart his Plavix from a surgical standpoint He can follow-up with me as an outpatient to discuss elective cholecystectomy once he is improved (2) Choledocholithiasis: Admission and Anticipated Discharge Date Admission Date: March 31, 2023 Subjective Patient seen and examined. Has minimal abdominal pain. Denies nausea or vomiting. No bowel movement today, but passing flatus. Still has some distention. Review of Systems Constitutional: no fever and no chills Physical Exam Constitutional: WD/WN, vitals as above Gastrointestinal (Abdomen): Inspection/Auscultation: + abdomen distended; + abdomen abnormal to inspection Percussion/Palpation: + abdomen tender (Minimal diffuse) and abdomen soft; no guarding and abdomen not rigid Results & Data Vital Signs (Past 12 Hours) Vital Signs Temp Pulse Pulse Resp BP Pulse Ox O2 Del Method 04/06/23 08:00 36.8 C 66 18 113/79 97 Room Air 04/06/23 07:23 64 04/06/23 03:22 36.5 C 62 20 131/76 95 Room Air 04/05/23 22:57 73 04/05/23 23:05 36.6 C 66 18 134/77 95 Room Air PG Care Time/CCT Total # of Minutes Spent Total Time Spent with Patient: Total time spent is greater than 50% in coordination of care (as documented) at patient's floor/unit and/or counseling patient: Coding Level of Care Code 68847 SUB INP/OBS CARE 12/21MIN Diagnoses Acute pancreatitis K85.90 Acute pancreatitis complication: unspecified Pancreatitis type: unspecified pancreatitis type Choledocholithiasis K80.50 (1) Acute pancreatitis Acute pancreatitis complication: unspecified Pancreatitis type: unspecified pancreatitis type Qualified Code(s): K85.90 - Acute pancreatitis without necrosis or infection, unspecified
[2023-04-06 09:23] LABS: Albumin Level 2.6 gm/dl (3.4-5.0); BUN Creatinine Ratio 23.2 (10-20); Bilirubin,Total 1.2 mg/dl (0.2-1.0); Calcium 6.9 mg/dl (8.6-10.3); Creatinine Clr Calc Pharmacy 109.4 ml/min; Est GFR (African American) 109.9 ml/min; Est GFR (Non-African American) 94.8 ml/min; Globulin 2.7 gm/dl (2.5-4.0); Potassium 3.6 mmol/L (3.5-5.1); Total Protein 5.3 gm/dl (6.0-8.3)
--- NOTE | 2023-04-06 09:33 | Pharmacy Report ---
Pharmacy Glycemic Short Note 2 - Date of Service April 06, 2023 - Glycemic Short BSG Results (Last 24 hours): 04/05/23 04/05/23 04/05/23 11:25 16:14 19:50 Glucose POC Glucose 147 H 141 H 127 H 04/06/23 04/06/23 07:31 08:42 Glucose 171 H POC Glucose 168 H OUTPATIENT ANTIDIABETIC REGIMEN: * metformin 1000 mg PO BID * HBA1C = 7.6% (04/01/23) ASSESSMENT: 04/06: * Patient was NPO yesterday and the day before and did not receive any insulin for the last two days. * BSGs yesterday were [phone] mg/dl. * Fasting BSG today was 168 mg/dl. Diet is now ordered and patient is tolerating clears. * Pre-lunch BSG elevated at 201 mg/dl. Added basal insulin on a scale at HS. 04/03 * Patient received total of 30 units of insulin yesterday, of which 25 units were basal insulin * Fasting BSG 125 mg/dL - only day 2 of starting basal insulin, not quite at steady state with dosing * Patient NPO this morning, confirmed with RN he will be NPO rest of the day. Will provide a reduced dose of basal insulin with dinner 04/01 * Mr Hill is a 72 y/o M with a PMH of T2DM who presents with severe pancreatitis. He was initiated on an insulin infusion. * This morning BSGs are stable, within goal range. Insulin infusion reduced to 1 unit/hr. * Patient transitioned from NPO to clear liquid diet at lunch. * Will transition to SQ insulin. Will start with Lantus 25 units (~ 1 unit/hr - also is slightly less than full weight-based stress of 2). Titrate tomorrow based upon BSGs and overnight requirements. * Novolog weight-based stress of 2-3. PLAN FOR INPATIENT GLYCEMIC CONTROL: * Hold outpatient oral diabetes medications * Basal insulin * Lantus 0-10 units SC HS - 0 units for BSG less than 150 mg/dl - 10 units for BSG 150 mg/dl or above * Bolus insulin * NovoLog per scale ACHS or Q6hrs while NPO * Goal Range: Low 110 mg/dL - High 140 mg/dL * Correction Factor: 25 mg/dL/unit * Nutritional / Prandial insulin per carb ratio of 1 unit per 9 grams CHO consumed
[2023-04-06] MEDS ORDERED: STAT IV STA (10:23)
[2023-04-06] MEDS ORDERED: CALCIUM GLUCONATE 10% 1,000 MG in DEXTROSE 5% 50 ML IV ONE (10:45)
[2023-04-06] MEDS: PANTOprazole 40 MG in SYRINGE 0 ML IV SCH (11:00)
[2023-04-06] MEDS: CALCITRIOL 0.25 MCG CAPSULE PO SCH (11:00)
--- NOTE | 2023-04-06 19:56 | Hospitalist Progress Note ---
Date of Service April 06, 2023 Assessment & Plan (1) Acute pancreatitis: Plan: Peak lipase 2410. Lipase has normalized. Course complicated by ileus, sepsis, choledocholithiasis, and needing ICU level of care early on in admission. Acute pancreatitis likely due to gallstones given the choledocholithiasis as confirmed on ERCP. GI following. Gen surg following. Appreciate both teams recommendations/assistance. He is 10+ liters positive for this stay -- lowered fluid rate to 50cc/hr. Appetite still not great. Cont supportive care and IV antibiotics. He is about 7 days into a zosyn course to cover the biliary tract. Can likely transition to PO augmentin tomorrow. (2) Abdominal pain: Plan: Improved/Resolved s/p ERCP and retrieval of CBD stones as well as resolution of acute pancreatitis. Ileus also likely contributed to pain. LFTs mildly high but stable. Leukocytosis resolved. Procal has trended down nicely from 25 to 5. Cont IV zosyn - he is about day 6-7 today (had 1 day where he had no IV abx). Transition to PO augmentin x 3 more days tomorrow. (3) Choledocholithiasis: Plan: s/p ERCP 04/05/23 with 2 stones removed and stent placed. Appreciate [facility] GI consult and assistance. Cont IV zosyn and IVF as above. Can likely change to PO abx tomorrow. Blood cx's from admission negative. Repeat LFTs am. LFTs today similar to prior but stable. (4) Sepsis: Plan: suspected can't fully rule out cholecystitis but unlikely at this point no purulent bile on ERCP thus no over cholangitis (but certainly his clinical course may have been c/w such) cont IV zosyn blood cx's negative to date plan 10 days of IV/PO abx in total (5) Ileus: Plan: 2nd to #1. Ongoing but passing stools and flatus. Clears started & he is tolerating such. Defer diet advancement to GI/gen surg. Cont IV fluids. Cont supportive care. Really encouraged him to get OOB to chair as this will help the ileus. (6) Acute metabolic encephalopathy: Plan: 2nd to #1, #3, #4, etc Fortunately no agitation. Improving albeit slowly. Supportive care. Avoid sedatives/benzos. (7) Acute hepatitis: Plan: LFTs are about the same as yesterday. Stable. 2nd to #3. Check daily LFTs. Can't rule out a partially treated cholecystitis. (8) High anion gap metabolic acidosis: Plan: Present on admission. resolved. 2nd to DKA & lactic acidosis. (9) Type 2 diabetes mellitus: Plan: Hemoglobin A1C 7.6% this admission. Resolved DKA (had been on insulin infusion). Metformin is on hold. Cont bolus insulin therapy. BSGs remain reasonablly controlled. (10) Acute hyperkalemia: Plan: present on admission - resolved (11) GUILLERMINA (acute kidney injury): Plan: resolved - peak Cr had been 2.3, trended to <1 Cr today again stable at 0.69 BMP am (12) Acute respiratory failure with hypoxia: Plan: 2nd to acidosis at time of admission. required non-rebreather by report at time of ER presentation. resolved. He is 10+ liters positive for the admission and showing signs of 3rd spacing on exam and CT. CXR obtained 04/05 without edema or large effusions but [id number] lowered fluid rate to 50cc/hr. (13) Malignant melanoma: Plan: back, s/p removal just prior to admission (14) Esophageal dysphagia: Plan: cont PPI can change to PO PPI tomorrow (15) HTN (hypertension): Plan: Bps satisfactory JOSÉ MIGUEL inhibitor on hold (16) History of CVA (cerebrovascular accident): Plan: Was taking aspirin and Plavix pre-hospital - holding both due to recent ERCP (17) Hypothyroidism: Plan: Continue levothyroxine. TSH 0.192 - will not adjust at this time. Simply repeat as outpatient. (18) DKA (diabetic ketoacidosis): Plan: present on admission - resolved (19) Hypocalcemia: Plan: calcium gluconate 1gm IV x 1 start rocaltrol repeat calcium level am check 25-OH vit D in am (20) Depression: Plan: long-standing per daughter remains on 20mg prozac daily could consider dose increase, changing to a more activating SSRI, or adding another agent such as wellbutrin or other Plan VTE Prophylaxis - SC lovenox pulmonary toilet with flutter valve and incentive spirometry spoke with pt's daughter (she is 1 of 3 daughters) at bedside today and updated her PT, OT when able rehab post-d/c Admission and Anticipated Discharge Date Admission Date: March 31, 2023 Subjective patient denies BM today but nursing documentation show he had one just after midnight overnight throughout the day today, however, no BM and passing little flatus he has not been oob to chair today - during the visit I encouraged him to do such even if it was for only an hour or two very reluctant to do so he admits that he is sad that he will need rehab after discharge daughter/son-in-law present during my visit and daughter states he has struggled with depression for years patient denies abd pain today Review of Systems Review of Systems: gen - tired, weak, little appetite cv - no chest pain pulm - denies dyspnea GI - no nausea/emesis; ongoing bloating/distension Physical Exam Physical Exam: gen - despondent today, offered little in the way of conversation, but NAD mouth - MMM neck - no JVD heart - RRR, s1 s2, no murmur lungs - CTA b/l, decreased BS bases only abd - severely distended - modestly better again today; still with decreased BS+; no tenderness; no guarding; umbilical hernia remains reducible; no HSM ext - pulses 2+ b/l, no edema skin - no jaundice; no rash eyes - no icterus psych - restricted affect, awake, alert Results & Data Results & Data Vital Signs (Past 12 Hours) Vital Signs Temp Pulse Pulse Resp BP Pulse Ox O2 Del Method 04/06/23 16:00 36.7 C 87 16 119/74 97 Room Air 04/06/23 15:30 64 04/06/23 12:00 36.8 C 74 16 128/78 97 Room Air 04/06/23 08:00 36.8 C 66 18 113/79 97 Room Air Laboratory Results Laboratory Results - last 24 hr 03/31/23 03/31/23 04/06/23 19:37 19:37 07:31 WBC RBC Hgb Hct MCV MCH MCHC RDW Std Deviation RDW Coeff of Dinorah Plt Count MPV Immature Gran % (Auto) Neut % (Auto) Lymph % (Auto) [place] % (Auto) Eos % (Auto) Baso % (Auto) Neut # (Auto) Lymph # (Auto) [place] # (Auto) Eos # (Auto) Baso # (Auto) Immature Gran # (Auto) Sodium Potassium Chloride Carbon Dioxide Anion Gap BUN Creatinine Est Cr Clr Drug Dosing Est GFR ( Amer) Est GFR (Non-Af Amer) BUN/Creatinine Ratio Glucose POC Glucose 168 H Calcium Total Bilirubin AST ALT Alkaline Phosphatase Total Protein Albumin Globulin Albumin/Globulin Ratio A. phagocytophilum DNA Negative Babesia microti DNA PCR Not Detected 04/06/23 04/06/23 04/06/23 08:42 08:42 11:21 WBC 10.56 RBC 4.02 L Hgb 12.4 L Hct 37.2 L MCV 92.5 MCH 30.8 MCHC 33.3 RDW Std Deviation 50.8 H RDW Coeff of Dinorah 14.9 H Plt Count 158 MPV 9.5 Immature Gran % (Auto) 0.7 Neut % (Auto) 85.9 Lymph % (Auto) 6.6 [place] % (Auto) 6.3 Eos % (Auto) 0.2 Baso % (Auto) 0.3 Neut # (Auto) 9.08 H Lymph # (Auto) 0.70 L [place] # (Auto) 0.66 H Eos # (Auto) 0.02 Baso # (Auto) 0.03 Immature Gran # (Auto) 0.07 Sodium 137 Potassium 3.6 Chloride 108 H Carbon Dioxide 21 Anion Gap 8 BUN 16 Creatinine 0.69 Est Cr Clr Drug Dosing 109.4 Est GFR ( Amer) 109.9 Est GFR (Non-Af Amer) 94.8 BUN/Creatinine Ratio 23.2 H Glucose 171 H POC Glucose 201 H Calcium 6.9 L Total Bilirubin 1.2 H AST 25 ALT 60 H Alkaline Phosphatase 116 H Total Protein 5.3 L Albumin 2.6 L Globulin 2.7 Albumin/Globulin Ratio 1.0 A. phagocytophilum DNA Babesia microti DNA PCR 04/06/23 16:31 WBC RBC Hgb Hct MCV MCH MCHC RDW Std Deviation RDW Coeff of Dinorah Plt Count MPV Immature Gran % (Auto) Neut % (Auto) Lymph % (Auto) [place] % (Auto) Eos % (Auto) Baso % (Auto) Neut # (Auto) Lymph # (Auto) [place] # (Auto) Eos # (Auto) Baso # (Auto) Immature Gran # (Auto) Sodium Potassium Chloride Carbon Dioxide Anion Gap BUN Creatinine Est Cr Clr Drug Dosing Est GFR ( Amer) Est GFR (Non-Af Amer) BUN/Creatinine Ratio Glucose POC Glucose 116 H Calcium Total Bilirubin AST ALT Alkaline Phosphatase Total Protein Albumin Globulin Albumin/Globulin Ratio A. phagocytophilum DNA Babesia microti DNA PCR PG Care Time/CCT Total # of Minutes Spent Total Time Spent with Patient: Total time spent is greater than 50% in coordination of care (as documented) at patient's floor/unit and/or counseling patient: Coding Level of Care Code 94614 SUB INP/OBS CARE 3/50MIN Diagnoses Acute pancreatitis K85.90 Acute pancreatitis complication: unspecified Pancreatitis type: unspecified pancreatitis type Abdominal pain R10.9 Choledocholithiasis K80.50 Sepsis A41.9 Ileus K56.7 Acute metabolic encephalopathy G93.41 Acute hepatitis B17.9 High anion gap metabolic acidosis E87.29 Type 2 diabetes mellitus E11.9 Acute hyperkalemia E87.5 GUILLERMINA (acute kidney injury) N17.9 Acute respiratory failure with hypoxia J96.01 Malignant melanoma C43.9 Esophageal dysphagia R13.19 HTN (hypertension) I10 History of CVA (cerebrovascular accident) Z86.73 Hypothyroidism E03.9 DKA (diabetic ketoacidosis) E10.11 Diabetes mellitus complication detail: with coma Diabetes mellitus type: type 1 Hypocalcemia E83.51 Depression F32.A (1) Acute pancreatitis Acute pancreatitis complication: unspecified Pancreatitis type: unspecified pancreatitis type Qualified Code(s): K85.90 - Acute pancreatitis without necrosis or infection, unspecified (18) DKA (diabetic ketoacidosis) Diabetes mellitus complication detail: with coma Diabetes mellitus type: type 1 Qualified Code(s): E10.11 - Type 1 diabetes mellitus with ketoacidosis with coma
[2023-04-06] MEDS: LANTUS PER UNIT CHARGE SC SCH (21:09)
[2023-04-06] MEDS: MELATONIN 3 MG TAB PO SCH (21:11)
[2023-04-06] MEDS: LACTATED RINGER'S 1,000 ML IV SCH (21:18)
[2023-04-07] MEDS: LEVOTHYROXINE SODIUM 88 MCG TABLET PO SCH (06:05)
[2023-04-07 07:09] LABS: Hematocrit (blood only) 37.6 % (42.0-52.0); Hemoglobin 12.8 g/dl (14.0-18.0); Mean Corpuscular Hemoglobin 30.5 pg (25.0-34.0); Mean Corpuscular Volume 89.5 fL (80.0-100.0); Mean Platelet Volume 9.9 fL (9.4-12.4); Platelet Count 182 K/uL (130-400); RDW Coefficient of Variation 14.5 % (11.5-14.5); RDW Standard Deviation 46.9 fL (36.4-46.3); White Blood Count 11.76 K/ul (4.8-10.8)
[2023-04-07 07:25] LABS: Albumin Level 2.6 gm/dl (3.4-5.0); BUN Creatinine Ratio 21.9 (10-20); Bilirubin,Total 0.9 mg/dl (0.2-1.0); Calcium 7.2 mg/dl (8.6-10.3); Creatinine Clr Calc Pharmacy 117.9 ml/min; Est GFR (African American) 113.4 ml/min; Est GFR (Non-African American) 97.8 ml/min; Globulin 2.7 gm/dl (2.5-4.0); Potassium 3.5 mmol/L (3.5-5.1); Total Protein 5.3 gm/dl (6.0-8.3)
[2023-04-07 07:58] LABS: Vitamin D, 25 Hydrox 11.9 ng/ml (30-100)
[2023-04-07] MEDS: PHENAZOPYRIDINE HCL 200 MG TAB PO PRN (08:15)
[2023-04-07] MEDS: MAGNESIUM OXIDE 400 MG TAB PO SCH ×2 (08:15→20:10)
[2023-04-07] MEDS: FLUoxetine HCL 20 MG CAP PO SCH (08:15)
[2023-04-07] MEDS: ENOXAPARIN INJ 40 MG/0.4 ML SYR SQ SCH (08:15)
[2023-04-07] MEDS: CALCITRIOL 0.25 MCG CAPSULE PO SCH (08:15)
[2023-04-07] MEDS: AMOXICILLIN/CLAVULANATE 875 MG TAB PO SCH ×2 (08:21→17:25)
[2023-04-07] MEDS: PANTOprazole 40 MG TAB PO SCH (08:21)
[2023-04-07] MEDS: INSULIN ASPART PER UNIT CHARGE SC SCH ×4 (08:54→20:16)
--- NOTE | 2023-04-07 10:12 | Surgery Progress Note ---
Date of Service April 07, 2023 Assessment & Plan (1) Acute pancreatitis: Plan: He is improving slowly and tolerating clear liquid diet Can advance his diet as tolerates from our standpoint as he is willing Again there is no plans for cholecystectomy this admission, can restart his Plavix from a surgical standpoint He can follow-up with me as an outpatient to discuss elective cholecystectomy once he is improved We will sign off, please call with any questions/concerns. [facility] on wknd if needed Admission and Anticipated Discharge Date Admission Date: March 31, 2023 Subjective Patient says he is feeling about the same as yesterday. Tolerating clears, but not hungry for more. No nausea/vomiting. Passing flatus. Had a small BM yesterday documented. Physical Exam Physical Exam: awake/alert, no distress Gastrointestinal (Abdomen): Inspection/Auscultation: + abdomen distended Percussion/Palpation: + abdomen tender (generalized discomfort to palpation) and abdomen soft Results & Data Vital Signs (Past 12 Hours) Vital Signs Temp Pulse Pulse Resp BP Pulse Ox O2 Del Method 04/07/23 07:06 36.6 C 65 18 145/83 H 93 Room Air 04/07/23 04:28 36.7 C 72 16 151/75 H 94 Room Air 04/07/23 00:00 71 04/06/23 22:34 36.5 C 57 L 16 137/86 94 Room Air PG Care Time/CCT Total # of Minutes Spent Total Time Spent with Patient: Total time spent is greater than 50% in coordination of care (as documented) at patient's floor/unit and/or counseling patient: Coding Level of Care Code 77363 SUB INP/OBS CARE 12/21MIN Diagnoses Acute pancreatitis K85.90 Acute pancreatitis complication: unspecified Pancreatitis type: unspecified pancreatitis type (1) Acute pancreatitis Acute pancreatitis complication: unspecified Pancreatitis type: unspecified pancreatitis type Qualified Code(s): K85.90 - Acute pancreatitis without necrosis or infection, unspecified
[2023-04-07] MEDS: TAMSULOSIN HCL 0.4 MG CAP PO SCH (10:25)
--- NOTE | 2023-04-07 11:13 | Pharmacy Report ---
Pharmacy Glycemic Short Note 2 - Date of Service April 07, 2023 - Glycemic Short BSG Results (Last 24 hours): 04/06/23 04/06/23 04/06/23 11:21 16:31 20:27 Glucose POC Glucose 201 H 116 H 105 H 04/07/23 04/07/23 06:51 07:26 Glucose 159 H POC Glucose 144 H OUTPATIENT ANTIDIABETIC REGIMEN: * metformin 1000 mg PO BID * HBA1C = 7.6% (04/01/23) ASSESSMENT: 04/07: * BSGs yesterday were [phone] mg/dl. Patient received only 7 units total of Novolog bolus with morning meals yesterday. No basal dose needed. * Novolog parameters continued the same but reduced basal dose scale at HS. 04/06: * Patient was NPO yesterday and the day before and did not receive any insulin for the last two days. * BSGs yesterday were [phone] mg/dl. * Fasting BSG today was 168 mg/dl. Diet is now ordered and patient is tolerating clears. * Pre-lunch BSG elevated at 201 mg/dl. Added basal insulin on a scale at HS. 04/03 * Patient received total of 30 units of insulin yesterday, of which 25 units were basal insulin * Fasting BSG 125 mg/dL - only day 2 of starting basal insulin, not quite at steady state with dosing * Patient NPO this morning, confirmed with RN he will be NPO rest of the day. Will provide a reduced dose of basal insulin with dinner 04/01 * Mr Hill is a 72 y/o M with a PMH of T2DM who presents with severe p ancreatitis. He was initiated on an insulin infusion. * This morning BSGs are stable, within goal range. Insulin infusion reduced to 1 unit/hr. * Patient transitioned from NPO to clear liquid diet at lunch. * Will transition to SQ insulin. Will start with Lantus 25 units (~ 1 unit/hr - also is slightly less than full weight-based stress of 2). Titrate tomorrow based upon BSGs and overnight requirements. * Novolog weight-based stress of 2-3. PLAN FOR INPATIENT GLYCEMIC CONTROL: * Hold outpatient oral diabetes medications * Basal insulin * Lantus 0-5 units SC HS - 0 units for BSG less than 150 mg/dl - 5 units for BSG 150 mg/dl or above * Bolus insulin * NovoLog per scale ACHS or Q6hrs while NPO * Goal Range: Low 110 mg/dL - High 140 mg/dL * Correction Factor: 25 mg/dL/unit * Nutritional / Prandial insulin per carb ratio of 1 unit per 9 grams CHO consumed
[2023-04-07] MEDS: PIPERACILLIN/TAZOBACTAM 4.5 GM in DEXTROSE 5% 100 ML IV SCH (15:31)
[2023-04-07] MEDS ORDERED: FUROSEMIDE 20 MG TAB PO ONE (17:34)
[2023-04-07] MEDS ORDERED: FUROSEMIDE 40 MG TAB PO ONE (17:34)
--- NOTE | 2023-04-07 17:41 | Hospitalist Progress Note ---
Date of Service April 07, 2023 Assessment & Plan (1) Acute pancreatitis: Plan: Peak lipase 2410. Lipase has normalized. Course complicated by ileus, sepsis, choledocholithiasis, and needing ICU level of care early on in admission. Acute pancreatitis likely due to gallstones given the choledocholithiasis as confirmed on ERCP. GI following. Gen surg following. Appreciate both teams recommendations/assistance. advance diet to full liquids. stop IVF (he is 10+ liters positive for this stay and weight has trended up again today). stop IV zosyn; change to augmentin 875mg PO BID x 3 days then stop all abx. (2) Abdominal pain: Plan: Improved/Resolved s/p ERCP and retrieval of CBD stones as well as resolution of acute pancreatitis. Ileus also likely contributed to pain. LFTs mildly high but stable. Procal has trended down nicely from 25 to 5. No fevers. stop IV zosyn; transition to PO augmentin. (3) Choledocholithiasis: Plan: s/p ERCP 04/05/23 with 2 stones removed and stent placed. Appreciate [facility] GI consult and assistance. Blood cx's from admission negative. Repeat LFTs am. LFTs today again improving. abx - change zosyn to augmentin today. (4) Sepsis: Plan: suspected can't fully rule out cholecystitis but unlikely at this point no purulent bile on ERCP thus no over cholangitis (but certainly his clinical course may have been c/w such) plan 10 days of IV/PO abx in total change zosyn to PO augmentin today (5) Ileus: Plan: 2nd to #1. Ongoing but passing stools and flatus. Advance diet to full liquids. Again encouraged him to get OOB to chair and more activity in general. (6) Acute metabolic encephalopathy: Plan: IMPROVED. 2nd to severe pancreatitis with choledocholithiasis and sepsis. Supportive care. Avoid sedatives/benzos. (7) Acute hepatitis: Plan: LFTs improving. 2nd to #3. Check daily LFTs. Can't rule out a partially treated cholecystitis but felt less likely. (8) High anion gap metabolic acidosis: Plan: Present on admission. 2nd to DKA & lactic acidosis. Resolved. (9) Type 2 diabetes mellitus: Plan: Hemoglobin A1C 7.6% this admission. Resolved DKA (had been on insulin infusion). Metformin is on hold. Cont bolus insulin therapy. BSGs remain controlled. (10) Acute hyperkalemia: Plan: present on admission - resolved 2nd GUILLERMINA (11) GUILLERMINA (acute kidney injury): Plan: resolved - peak Cr had been 2.3, trended to <1 Cr today stable BMP am stop IVF provide gentle diuresis remove bender soon (12) Acute respiratory failure with hypoxia: Plan: 2nd to acidosis at time of admission. required non-rebreather by report at time of ER presentation. resolved. He is 10+ liters positive for the admission and showing signs of 3rd spacing on exam and CT. CXR obtained 04/05 without edema or large effusions but [id number] stop IV fluids and provide gentle diuresis. (13) Malignant melanoma: Plan: back, s/p removal just prior to admission (14) Esophageal dysphagia: Plan: cont PPI (15) HTN (hypertension): Plan: Bps satisfactory JOSÉ MIGUEL inhibitor on hold (16) History of CVA (cerebrovascular accident): Plan: Was taking aspirin and Plavix pre-hospital - holding both due to recent ERCP If doing well by the am tomorrow resume plavix, then ultimately resume asa a day or two after that (17) Hypothyroidism: Plan: Continue levothyroxine. TSH 0.192 - will not adjust at this time. Simply repeat as outpatient. (18) DKA (diabetic ketoacidosis): Plan: present on admission - resolved (19) Depression: Plan: long-standing per daughter remains on 20mg prozac daily could consider dose increase, changing to a more activating SSRI, or adding another agent such as wellbutrin or other (20) Hypocalcemia: Plan: due at least in part to vit D def s/p calcium gluconate several times + rocaltrol while here total calcium level 7.2 today; corrected for low albumin about 8.2 replace low vit D repeat total calcium level in am (21) Vitamin D deficiency: Plan: 25-OH vit D level = 11.9 provide ergocalciferol 50,000 units x 1 now then repeat weekly for 7 more weeks also remains on calcitriol 0.25mcg daily. trend calcium levels Plan VTE Prophylaxis - SC lovenox cont pulmonary toilet with flutter valve and incentive spirometry stop IVF today he remains 10+ liters of fluid positive for admission provide lasix x 1 and re-eval tomorrow spoke with pt's daughter (she is 1 of 3 daughters) at bedside today and updated her PT, OT when able rehab post-d/c will be needed can d/c telemetry tomorrow Admission and Anticipated Discharge Date Admission Date: March 31, 2023 Subjective pt lying in bed comfortably he did sit in the chair some today he has tolerated clears, then had full liquids and tolerated this as well no abd pain today - just bloating passing flatus and did have BM last pm continues to feel tired & weak denies any new complaints daughter was present at bedside during the visit tele - NSR Review of Systems Review of Systems: gen - no fevers, no chills, no sweats cv - no chest pain pulm - denies dyspnea; denies that he was short of breath with walking/transferring to chair GI - no vomiting - bender remains in place Physical Exam Physical Exam: gen - affect more full today but doesn't initiate conversation or offer much history, NAD eyes - no icterus mouth - MMM neck - no JVD heart - RRR, s1 s2, no murmur lungs - CTA b/l, decreased BS bases with crackles bases b/l abd - mod-severe distension - modestly better again today; still with decreased BS+; no tenderness; no guarding; small umbilical hernia remains reducible; no HSM ext - pulses 2+ b/l, no edema skin - no jaundice; no rash psych - affect slightly more full today - even smiled once; awake, alert Results & Data Results & Data Vital Signs (Past 12 Hours) Vital Signs Temp Pulse Pulse Resp BP Pulse Ox O2 Del Method 04/07/23 16:00 71 04/07/23 16:06 36.7 C 79 18 124/80 91 Room Air 04/07/23 11:02 36.5 C 79 18 135/79 92 Room Air 04/07/23 08:00 69 04/07/23 07:06 36.6 C 65 18 145/83 H 93 Room Air Laboratory Results Laboratory Results - last 24 hr 03/31/23 04/06/23 04/07/23 19:37 20:27 06:51 WBC 11.76 H RBC 4.20 L Hgb 12.8 L Hct 37.6 L MCV 89.5 MCH 30.5 MCHC 34.0 RDW Std Deviation 46.9 H RDW Coeff of Dinorah 14.5 Plt Count 182 MPV 9.9 Sodium Potassium Chloride Carbon Dioxide Anion Gap BUN Creatinine Est Cr Clr Drug Dosing Est GFR ( Amer) Est GFR (Non-Af Amer) BUN/Creatinine Ratio Glucose POC Glucose 105 H Calcium Total Bilirubin AST ALT Alkaline Phosphatase Total Protein Albumin Globulin Albumin/Globulin Ratio Vitamin B12 25-OH Vitamin D Total A. phagocytophilum DNA Negative 04/07/23 04/07/23 04/07/23 06:51 06:51 07:26 WBC RBC Hgb Hct MCV MCH MCHC RDW Std Deviation RDW Coeff of Dinorah Plt Count MPV Sodium 136 Potassium 3.5 Chloride 105 Carbon Dioxide 22 Anion Gap 9 BUN 14 Creatinine 0.64 Est Cr Clr Drug Dosing 117.9 Est GFR ( Amer) 113.4 Est GFR (Non-Af Amer) 97.8 BUN/Creatinine Ratio 21.9 H Glucose 159 H POC Glucose 144 H Calcium 7.2 L Total Bilirubin 0.9 AST 25 ALT 52 Alkaline Phosphatase 119 H Total Protein 5.3 L Albumin 2.6 L Globulin 2.7 Albumin/Globulin Ratio 1.0 Vitamin B12 869 25-OH Vitamin D Total 11.9 L A. phagocytophilum DNA 04/07/23 04/07/23 11:30 16:04 WBC RBC Hgb Hct MCV MCH MCHC RDW Std Deviation RDW Coeff of Dinorah Plt Count MPV Sodium Potassium Chloride Carbon Dioxide Anion Gap BUN Creatinine Est Cr Clr Drug Dosing Est GFR ( Amer) Est GFR (Non-Af Amer) BUN/Creatinine Ratio Glucose POC Glucose 146 H 151 H Calcium Total Bilirubin AST ALT Alkaline Phosphatase Total Protein Albumin Globulin Albumin/Globulin Ratio Vitamin B12 25-OH Vitamin D Total A. phagocytophilum DNA PG Care Time/CCT Total # of Minutes Spent Total Time Spent with Patient: Total time spent is greater than 50% in coordination of care (as documented) at patient's floor/unit and/or counseling patient: Coding Level of Care Code 52643 SUB INP/OBS CARE 3/50MIN Diagnoses Acute pancreatitis K85.90 Acute pancreatitis complication: unspecified Pancreatitis type: unspecified pancreatitis type Abdominal pain R10.9 Choledocholithiasis K80.50 Sepsis A41.9 Ileus K56.7 Acute metabolic encephalopathy G93.41 Acute hepatitis B17.9 High anion gap metabolic acidosis E87.29 Type 2 diabetes mellitus E11.9 Acute hyperkalemia E87.5 GUILLERMINA (acute kidney injury) N17.9 Acute respiratory failure with hypoxia J96.01 Malignant melanoma C43.9 Esophageal dysphagia R13.19 HTN (hypertension) I10 History of CVA (cerebrovascular accident) Z86.73 Hypothyroidism E03.9 DKA (diabetic ketoacidosis) E10.11 Diabetes mellitus complication detail: with coma Diabetes mellitus type: type 1 Depression F32.A Hypocalcemia E83.51 Vitamin D deficiency E55.9 (1) Acute pancreatitis Acute pancreatitis complication: unspecified Pancreatitis type: unspecified pancreatitis type Qualified Code(s): K85.90 - Acute pancreatitis without necrosis or infection, unspecified (18) DKA (diabetic ketoacidosis) Diabetes mellitus complication detail: with coma Diabetes mellitus type: type 1 Qualified Code(s): E10.11 - Type 1 diabetes mellitus with ketoacidosis with coma
[2023-04-07] MEDS ORDERED: ERGOCALCIFEROL 50,000 UNITS 1250 MCG CAP PO ONE (17:45)
[2023-04-07] MEDS: LACTATED RINGER'S 1,000 ML IV SCH (17:51)
[2023-04-07] MEDS: POTASSIUM CHLORIDE CRTAB 20 MEQ TABCR PO SCH ×2 (18:12→20:25)
[2023-04-07] MEDS: MELATONIN 3 MG TAB PO SCH (20:11)
[2023-04-07] MEDS: LANTUS PER UNIT CHARGE SC SCH (20:17)
[2023-04-08] MEDS: LEVOTHYROXINE SODIUM 88 MCG TABLET PO SCH (05:33)
[2023-04-08 07:18] LABS: Hematocrit (blood only) 39.5 % (42.0-52.0); Hemoglobin 13.2 g/dl (14.0-18.0); Mean Corpuscular Hemoglobin 30.3 pg (25.0-34.0); Mean Corpuscular Hgb Conc 33.4 g/dL (32.0-36.0); Mean Corpuscular Volume 90.8 fL (80.0-100.0); Mean Platelet Volume 9.9 fL (9.4-12.4); Platelet Count 199 K/uL (130-400); RDW Coefficient of Variation 14.5 % (11.5-14.5); RDW Standard Deviation 48.6 fL (36.4-46.3); Red Blood Count 4.35 M/uL (4.70-6.10); White Blood Count 12.41 K/ul (4.8-10.8)
[2023-04-08 07:20] LABS: Albumin Globulin Ratio 0.9 (0.9-2); Albumin Level 2.6 gm/dl (3.4-5.0); BUN Creatinine Ratio 21.7 (10-20); Bilirubin,Total 0.7 mg/dl (0.2-1.0); Calcium 7.8 mg/dl (8.6-10.3); Creatinine Clr Calc Pharmacy 125.8 ml/min; Est GFR (African American) 116.4 ml/min; Est GFR (Non-African American) 100.5 ml/min; Globulin 2.9 gm/dl (2.5-4.0); Potassium 3.6 mmol/L (3.5-5.1); Total Protein 5.5 gm/dl (6.0-8.3)
[2023-04-08] MEDS: POTASSIUM CHLORIDE CRTAB 20 MEQ TABCR PO SCH ×2 (07:47→20:54)
[2023-04-08] MEDS: CALCITRIOL 0.25 MCG CAPSULE PO SCH (07:48)
[2023-04-08] MEDS: MAGNESIUM OXIDE 400 MG TAB PO SCH ×2 (07:48→20:54)
[2023-04-08] MEDS: TAMSULOSIN HCL 0.4 MG CAP PO SCH (07:48)
[2023-04-08] MEDS: ENOXAPARIN INJ 40 MG/0.4 ML SYR SQ SCH (07:48)
[2023-04-08] MEDS: AMOXICILLIN/CLAVULANATE 875 MG TAB PO SCH ×2 (07:48→17:46)
[2023-04-08] MEDS: FLUoxetine HCL 20 MG CAP PO SCH (07:48)
[2023-04-08] MEDS: PANTOprazole 40 MG TAB PO SCH (07:48)
[2023-04-08] MEDS: INSULIN ASPART PER UNIT CHARGE SC SCH ×4 (08:29→21:17)
[2023-04-08] MEDS ORDERED: FUROSEMIDE INJ 20 MG/2 ML VIAL IV ONE (08:45)
--- NOTE | 2023-04-08 10:58 | Hospitalist Progress Note ---
Date of Service April 08, 2023 Assessment & Plan (1) Acute pancreatitis: Plan: Peak lipase 2410. Lipase has normalized. Course complicated by ileus, sepsis, choledocholithiasis, and needing ICU level of care early on in admission. Acute pancreatitis likely due to gallstones given the choledocholithiasis as confirmed on ERCP. Pancreatitis resolved. advance diet to full liquids. cont augmentin 875mg PO BID x 2 more days then stop all abx. (2) Abdominal pain: Plan: Resolved s/p ERCP and retrieval of CBD stones as well as resolution of acute pancreatitis. Ileus also likely contributed to pain. Has ongoing distension but no pain. LFTs cont to improve. Procal has trended down nicely from 25 to 5. No fevers. Repeat procal in am. finish augmentin course. (3) Choledocholithiasis: Plan: s/p ERCP 04/05/23 with 2 stones removed and stent placed. Appreciate [facility] GI consult and assistance. Blood cx's from admission negative. LFTs today again improving. 2 more days of augmentin then d/c all abx. would have completed a total of 10 days. (4) Sepsis: Plan: suspected can't fully rule out cholecystitis but unlikely no purulent bile on ERCP thus no over cholangitis (but certainly his clinical course may have been c/w such) plan 10 days of IV/PO abx in total (zosyn/augmentin) (5) Ileus: Plan: 2nd to #1. Ongoing but passing stools and flatus. Advance diet to full liquids. Again encouraged him to get OOB to chair and more activity in general. Keep electrolytes wnl. (6) Acute metabolic encephalopathy: Plan: IMPROVED but still confused at times. Recall of events is very poor. Insight is poor. 2nd to severe pancreatitis with choledocholithiasis and sepsis. Supportive care. Avoid sedatives/benzos. (7) Acute hepatitis: Plan: LFTs improving/nearly normalized. 2nd to #3. Check LFTs in 48 hours. Can't rule out a partially treated cholecystitis but unlikely. (8) High anion gap metabolic acidosis: Plan: Present on admission. 2nd to DKA & lactic acidosis. Resolved. (9) Type 2 diabetes mellitus: Plan: Hemoglobin A1C 7.6% this admission. Resolved DKA (had been on insulin infusion). Metformin is on hold. Cont bolus insulin therapy. BSGs remain controlled. Pharmacy managing. (10) Acute hyperkalemia: Plan: present on admission - resolved 2nd GUILLERMINA (11) GUILLERMINA (acute kidney injury): Plan: resolved - peak Cr had been 2.3, trended to <1 (12) Acute respiratory failure with hypoxia: Plan: 2nd to acidosis at time of admission. required non-rebreather by report at time of ER presentation. resolved. He is 10+ liters positive for the admission and showing signs of 3rd spacing on exam and CT. CXR obtained 04/05 without edema or large effusions but [id number] stop IV fluids and provide gentle diuresis. (13) Malignant melanoma: Plan: back, s/p removal just prior to admission (14) Esophageal dysphagia: Plan: cont PPI (15) HTN (hypertension): Plan: Bps satisfactory JOSÉ MIGUEL inhibitor on hold (16) History of CVA (cerebrovascular accident): Plan: Was taking aspirin and Plavix pre-hospital resume plavix then resume asa in 48 hours (17) Hypothyroidism: Plan: Continue levothyroxine. TSH 0.192 - will not adjust at this time. Simply repeat as outpatient. (18) DKA (diabetic ketoacidosis): Plan: present on admission - resolved (19) Depression: Plan: long-standing per daughter remains on 20mg prozac daily could consider dose increase, changing to a more activating SSRI, or adding another agent such as wellbutrin or other (20) Hypocalcemia: Plan: due at least in part to vit D def s/p calcium gluconate several times + rocaltrol while here IMPROVING replace low vit D repeat total calcium level in am (21) Vitamin D deficiency: Plan: 25-OH vit D level = 11.9 provide ergocalciferol 50,000 units x 1 now then repeat weekly for 7 more weeks also remains on calcitriol 0.25mcg daily. trend calcium levels Plan VTE Prophylaxis - SC lovenox cont pulmonary toilet with flutter valve and incentive spirometry provide lasix 20mg IV x 1 again today for positive fluid balance daughters updated this week multiple times PT, OT rehab post-d/c will be needed d/c telemetry ok to move to med-surg Admission and Anticipated Discharge Date Admission Date: March 31, 2023 Subjective tele overnight wnl ectopy only NSR otherwise passing flatus no stool overnight denies abd pain bloating still present - a little better today not motivated to get OOB not sleeping well still can't tell me why he was in the hospital Review of Systems Review of Systems: cv - no chest pain pulm - no dyspnea GI - no nausea/emesis; tolerating clears Physical Exam Physical Exam: gen - NAD, affect flat eyes - no icterus mouth - MMM neck - no JVD heart - RRR, s1 s2, no murmur lungs - CTA b/l, decreased BS bases with crackles bases b/l - but crackles are better today abd - mod-severe distension - modestly better once again today; still with decreased BS+ but a little more active today; no tenderness; no guarding; small umbilical hernia remains reducible; no HSM ext - pulses 2+ b/l, no edema Results & Data Results & Data Vital Signs (Past 12 Hours) Vital Signs Temp Pulse Pulse Resp BP Pulse Ox O2 Del Method 04/08/23 08:00 79 04/08/23 07:30 36.8 C 80 18 132/83 90 Room Air 04/08/23 03:16 36.4 C L 75 18 146/87 H 94 Room Air 04/08/23 00:00 91 H Laboratory Results Laboratory Results - last 48 hr 04/07/23 04/07/23 04/07/23 11:30 16:04 20:09 WBC RBC Hgb Hct MCV MCH MCHC RDW Std Deviation RDW Coeff of Dinorah Plt Count MPV Immature Gran % (Auto) Neut % (Auto) Lymph % (Auto) [place] % (Auto) Eos % (Auto) Baso % (Auto) Neut # (Auto) Lymph # (Auto) [place] # (Auto) Eos # (Auto) Baso # (Auto) Immature Gran # (Auto) Sodium Potassium Chloride Carbon Dioxide Anion Gap BUN Creatinine Est Cr Clr Drug Dosing Est GFR ( Amer) Est GFR (Non-Af Amer) BUN/Creatinine Ratio Glucose POC Glucose 146 H 151 H 155 H Calcium Magnesium Total Bilirubin AST ALT Alkaline Phosphatase Total Protein Albumin Globulin Albumin/Globulin Ratio Procalcitonin 04/08/23 04/08/23 04/08/23 06:36 06:36 07:27 WBC 12.41 H RBC 4.35 L Hgb 13.2 L Hct 39.5 L MCV 90.8 MCH 30.3 MCHC 33.4 RDW Std Deviation 48.6 H RDW Coeff of Dinorah 14.5 Plt Count 199 MPV 9.9 Immature Gran % (Auto) Neut % (Auto) Lymph % (Auto) [place] % (Auto) Eos % (Auto) Baso % (Auto) Neut # (Auto) Lymph # (Auto) [place] # (Auto) Eos # (Auto) Baso # (Auto) Immature Gran # (Auto) Sodium 136 Potassium 3.6 Chloride 105 Carbon Dioxide 21 Anion Gap 10 BUN 13 Creatinine 0.60 Est Cr Clr Drug Dosing 125.8 Est GFR ( Amer) 116.4 Est GFR (Non-Af Amer) 100.5 BUN/Creatinine Ratio 21.7 H Glucose 191 H POC Glucose 179 H Calcium 7.8 L Magnesium Total Bilirubin 0.7 AST 25 ALT 45 Alkaline Phosphatase 114 H Total Protein 5.5 L Albumin 2.6 L Globulin 2.9 Albumin/Globulin Ratio 0.9 Procalcitonin 04/08/23 04/08/23 11:18 16:27 WBC RBC Hgb Hct MCV MCH MCHC RDW Std Deviation RDW Coeff of Dinorah Plt Count MPV Immature Gran % (Auto) Neut % (Auto) Lymph % (Auto) [place] % (Auto) Eos % (Auto) Baso % (Auto) Neut # (Auto) Lymph # (Auto) [place] # (Auto) Eos # (Auto) Baso # (Auto) Immature Gran # (Auto) Sodium Potassium Chloride Carbon Dioxide Anion Gap BUN Creatinine Est Cr Clr Drug Dosing Est GFR ( Amer) Est GFR (Non-Af Amer) BUN/Creatinine Ratio Glucose POC Glucose 197 H 168 H Calcium Magnesium Total Bilirubin AST ALT Alkaline Phosphatase Total Protein Albumin Globulin Albumin/Globulin Ratio Procalcitonin PG Care Time/CCT Total # of Minutes Spent Total Time Spent with Patient: Total time spent is greater than 50% in coordination of care (as documented) at patient's floor/unit and/or counseling patient: Coding Level of Care Code 97242 SUB INP/OBS CARE 2/35MIN Diagnoses Acute pancreatitis K85.90 Acute pancreatitis complication: unspecified Pancreatitis type: unspecified pancreatitis type Abdominal pain R10.9 Choledocholithiasis K80.50 Sepsis A41.9 Ileus K56.7 Acute metabolic encephalopathy G93.41 Acute hepatitis B17.9 High anion gap metabolic acidosis E87.29 Type 2 diabetes mellitus E11.9 Acute hyperkalemia E87.5 GUILLERMINA (acute kidney injury) N17.9 Acute respiratory failure with hypoxia J96.01 Malignant melanoma C43.9 Esophageal dysphagia R13.19 HTN (hypertension) I10 History of CVA (cerebrovascular accident) Z86.73 Hypothyroidism E03.9 DKA (diabetic ketoacidosis) E10.11 Diabetes mellitus complication detail: with coma Diabetes mellitus type: type 1 Depression F32.A Hypocalcemia E83.51 Vitamin D deficiency E55.9 (1) Acute pancreatitis Acute pancreatitis complication: unspecified Pancreatitis type: unspecified pancreatitis type Qualified Code(s): K85.90 - Acute pancreatitis without necrosis or infection, unspecified (18) DKA (diabetic ketoacidosis) Diabetes mellitus complication detail: with coma Diabetes mellitus type: type 1 Qualified Code(s): E10.11 - Type 1 diabetes mellitus with ketoacidosis with coma
[2023-04-08] MEDS ORDERED: LANTUS PER UNIT CHARGE SC SCH (16:30)
[2023-04-08] MEDS: ONDANSETRON INJ 2 MG/ML 2 ML VIAL IV PRN ×2 (19:27→19:46)
[2023-04-08] MEDS: MELATONIN 3 MG TAB PO SCH (20:54)
[2023-04-09] MEDS: LEVOTHYROXINE SODIUM 88 MCG TABLET PO SCH (06:03)
[2023-04-09 06:54] LABS: Basophils # (auto) 0.02 K/uL (0-0.2); Basophils % (auto) 0.2 %; Eosinophils # (auto) 0.03 K/uL (0-0.50); Eosinophils % (auto) 0.3 %; Hematocrit (blood only) 36.5 % (42.0-52.0); Hemoglobin 12.3 g/dl (14.0-18.0); Immature Granulocytes # (auto) 0.05 K/uL (0.01-0.20); Immature Granulocytes % (auto) 0.5 %; Lymphocytes # (auto) 0.88 K/uL (1.2-3.4); Lymphocytes % (auto) 8.1 %; Mean Corpuscular Hemoglobin 30.1 pg (25.0-34.0); Mean Corpuscular Hgb Conc 33.7 g/dL (32.0-36.0); Mean Corpuscular Volume 89.2 fL (80.0-100.0); Mean Platelet Volume 10.4 fL (9.4-12.4); Monocytes # (auto) 0.59 K/uL (0.11-0.59); Monocytes % (auto) 5.4 %; Neutrophils # (auto) 9.28 K/uL (1.40-6.50); Neutrophils % (auto) 85.5 %; Platelet Count 210 K/uL (130-400); RDW Coefficient of Variation 14.2 % (11.5-14.5); RDW Standard Deviation 46.3 fL (36.4-46.3); Red Blood Count 4.09 M/uL (4.70-6.10); White Blood Count 10.85 K/ul (4.8-10.8)
[2023-04-09 07:12] LABS: BUN Creatinine Ratio 19.7 (10-20); Creatinine Clr Calc Pharmacy 114.3 ml/min; Est GFR (African American) 111.9 ml/min; Est GFR (Non-African American) 96.6 ml/min; Magnesium 1.6 mg/dl (1.7-2.4); Potassium 3.6 mmol/L (3.5-5.1)
[2023-04-09] MEDS: INSULIN ASPART PER UNIT CHARGE SC SCH ×4 (08:43→21:20)
[2023-04-09] MEDS: MAGNESIUM OXIDE 400 MG TAB PO SCH ×2 (08:46→20:41)
[2023-04-09] MEDS: POTASSIUM CHLORIDE CRTAB 20 MEQ TABCR PO SCH ×2 (08:46→20:40)
[2023-04-09] MEDS: ENOXAPARIN INJ 40 MG/0.4 ML SYR SQ SCH (08:46)
[2023-04-09] MEDS: FLUoxetine HCL 20 MG CAP PO SCH (08:47)
[2023-04-09] MEDS: TAMSULOSIN HCL 0.4 MG CAP PO SCH (08:47)
[2023-04-09] MEDS: AMOXICILLIN/CLAVULANATE 875 MG TAB PO SCH ×2 (08:47→18:28)
[2023-04-09] MEDS: PHENAZOPYRIDINE HCL 200 MG TAB PO PRN (08:47)
[2023-04-09] MEDS: CALCITRIOL 0.25 MCG CAPSULE PO SCH (08:47)
[2023-04-09] MEDS: PANTOprazole 40 MG TAB PO SCH (08:47)
[2023-04-09] MEDS ORDERED: LANTUS PER UNIT CHARGE SC SCH (09:00)
[2023-04-09] MEDS: CLOPIDOGREL BISULFATE 75 MG TAB PO SCH (09:31)
[2023-04-09] MEDS: MAGNESIUM SULFATE / D5W 1 GM/100 ML BAG IV SCH ×2 (09:50→13:11)
[2023-04-09] MEDS: FUROSEMIDE INJ 20 MG/2 ML VIAL IV SCH (09:51)
[2023-04-09] MEDS ORDERED: FLUoxetine HCL 20 MG CAP PO ONE (10:15)
--- NOTE | 2023-04-09 15:07 | Pharmacy Report ---
Pharmacy Glycemic Short Note 2 - Date of Service April 09, 2023 - Glycemic Short BSG Results (Last 24 hours): 04/08/23 04/08/23 04/09/23 16:27 20:36 05:53 Glucose 225 H POC Glucose 168 H 241 H 04/09/23 04/09/23 07:26 12:22 Glucose POC Glucose 202 H 196 H OUTPATIENT ANTIDIABETIC REGIMEN: * metformin 1000 mg PO BID * HBA1C = 7.6% (04/01/23) ASSESSMENT: 04/08: * Fasting BSG continues to trend upward. Will increase basal insulin. * Post prandial BSGs are fluctuating. I suspect patient needs more carb coverage. Increased needs potentially due to increased oral intake? Will tighten Novolog parameters. 04/07: * BSGs yesterday were [phone] mg/dl. Patient received only 7 units total of Novolog bolus with morning meals yesterday. No basal dose needed. * Novolog parameters continued the same but reduced basal dose scale at HS. 04/06: * Patient was NPO yesterday and the day before and did not receive any insulin for the last two days. * BSGs yesterday were [phone] mg/dl. * Fasting BSG today was 168 mg/dl. Diet is now ordered and patient is tolerating clears. * Pre-lunch BSG elevated at 201 mg/dl. Added basal insulin on a scale at HS. 5 * Patient received total of 30 units of insulin yesterday, of which 25 units were basal insulin * Fasting BSG 125 mg/dL - only day 2 of starting basal insulin, not quite at steady state with dosing * Patient NPO this morning, confirmed with RN he will be NPO rest of the day. Will provide a reduced dose of basal insulin with dinner 04/01 * Mr Hill is a 72 y/o M with a PMH of T2DM who presents with severe pancreatitis. He was initiated on an insulin infusion. * This morning BSGs are stable, within goal range. Insulin infusion reduced to 1 unit/hr. * Patient transitioned from NPO to clear liquid diet at lunch. * Will transition to SQ insulin. Will start with Lantus 25 units (~ 1 unit/hr - also is slightly less than full weight-based stress of 2). Titrate tomorrow based upon BSGs and overnight requirements. * Novolog weight-based stress of 2-3. PLAN FOR INPATIENT GLYCEMIC CONTROL: * Hold outpatient oral diabetes medications * Basal insulin * Lantus 14 units SQ qAM * Bolus insulin * NovoLog per scale ACHS or Q6hrs while NPO * Goal Range: Low 110 mg/dL - High 140 mg/dL * Correction Factor: 20 mg/dL/unit * Nutritional / Prandial insulin per carb ratio of 1 unit per 7 grams CHO consumed
--- NOTE | 2023-04-09 18:08 | Hospitalist Progress Note ---
Date of Service April 09, 2023 Assessment & Plan (1) Acute pancreatitis: Plan: Peak lipase 2410. Lipase has normalized. Course complicated by ileus, sepsis, choledocholithiasis, and needing ICU level of care early on in admission. Acute pancreatitis likely due to gallstones given the choledocholithiasis as confirmed on ERCP. Pancreatitis resolved. diet - full liquids. No advancement today due to ongoing ileus. Cont augmentin 875mg PO BID x 1 more day then stop all abx. Since we are obtaining CTA chest will also obtain CT a/p to re-eval GB, ileus, etc. (2) Abdominal pain: Plan: Resolved s/p ERCP and retrieval of CBD stones as well as resolution of acute pancreatitis. Ileus also likely contributed to pain. Has ongoing distension but no pain. LFTs cont to improve. Procal has trended down nicely from 25 to 5 to <1 today. finish augmentin course. see above re: CT (3) Choledocholithiasis: Plan: s/p ERCP 04/05/23 with 2 stones removed and stent placed. Appreciate [facility] GI consult and assistance. Blood cx's from admission negative. LFTs have improved nicely during the hospital stay. 1 more day of augmentin then d/c all abx. would have completed a total of 10 days. (4) Sepsis: Plan: suspected can't fully rule out cholecystitis but unlikely no purulent bile on ERCP thus no over cholangitis (but certainly his clinical course may have been c/w such) plan 10 days of IV/PO abx in total (zosyn/augmentin) CT a/p today as above (5) Ileus: Plan: 2nd to #1. Ongoing but passing stools and flatus. Tolerating full liquids but still very, very distended. Again encouraged him to get OOB to chair and more activity in general. Keep electrolytes wnl. CT a/p - reeval this issue. (6) Acute metabolic encephalopathy: Plan: IMPROVED but still confused at times. Recall of events is very poor. Insight is poor. 2nd to severe pancreatitis with choledocholithiasis and sepsis. Supportive care. Avoid sedatives/benzos. (7) Acute hepatitis: Plan: LFTs improving/nearly normalized. 2nd to #3. Check LFTs in 48 hours. Can't rule out a partially treated cholecystitis but unlikely. (8) High anion gap metabolic acidosis: Plan: Present on admission. 2nd to DKA & lactic acidosis. Resolved. (9) Type 2 diabetes mellitus: Plan: Hemoglobin A1C 7.6% this admission. Resolved DKA (had been on insulin infusion). Metformin is on hold. Cont bolus insulin therapy. BSGs reasonable today Pharmacy managing. (10) Acute hyperkalemia: Plan: present on admission - resolved 2nd GUILLERMINA (11) GUILLERMINA (acute kidney injury): Plan: resolved - peak Cr had been 2.3, trended to <1 (12) Acute respiratory failure with hypoxia: Plan: 2nd to acidosis at time of admission. required non-rebreather by report at time of ER presentation. resolved. He is 10+ liters positive for the admission and showing signs of 3rd spacing on exam and CT. CXR obtained 04/05 without edema or large effusions but [id number] stop IV fluids and provide gentle diuresis. Now requiring NC O2 overnight. effusions? PEs? pulm edema? atelectasis due to abd distension? CTA chest today ordered (13) Malignant melanoma: Plan: back, s/p removal just prior to admission wounds look good today - c/d/i (14) Esophageal dysphagia: Plan: cont PPI (15) HTN (hypertension): Plan: Bps satisfactory JOSÉ MIGUEL inhibitor on hold (16) History of CVA (cerebrovascular accident): Plan: Was taking aspirin and Plavix pre-hospital resumed plavix resume asa in am (17) Hypothyroidism: Plan: Continue levothyroxine. TSH 0.192 - will not adjust at this time. Simply repeat as outpatient. (18) DKA (diabetic ketoacidosis): Plan: present on admission - resolved (19) Depression: Plan: long-standing per daughter will increase to 40mg prozac daily consider adding another agent such as wellbutrin or other (20) Hypocalcemia: Plan: due at least in part to vit D def s/p calcium gluconate several times + rocaltrol while here IMPROVING replace low vit D repeat total calcium level in am (21) Vitamin D deficiency: Plan: 25-OH vit D level = 11.9 provide ergocalciferol 50,000 units x 1 now then repeat weekly for 7 more weeks also remains on calcitriol 0.25mcg daily. trend calcium levels Plan VTE Prophylaxis - SC lovenox cont pulmonary toilet with flutter valve and incentive spirometry provide lasix 20mg IV x 1 again today for positive fluid balance daughters updated this week multiple times updated Gail by phone jaziel (daughter) PT, OT rehab post-d/c will be needed Admission and Anticipated Discharge Date Admission Date: March 31, 2023 Subjective had moderate BM this afternoon passing some flatus sitting in chair during the visit he was placed on O2 last pm when he was transferred from 2nd floor to 3rd floor requiring 2 L NC O2 he denies feeling dyspneic no cough no vomiting tolerating full liquids still distended Review of Systems Review of Systems: gen - no fevers or chills; tired cv - no chest pain pulm - no cough or wheezing GI - no emesis or vomiting; denies abd pain Physical Exam Physical Exam: gen - NAD, affect flat but more talkative today than yesterday; sitting in chair by window eyes - no icterus mouth - MM dry today neck - no JVD heart - RRR, s1 s2, no murmur lungs - CTA b/l, decreased BS bases - worse today; no significant crackles today abd - mod-severe distension - same as yesterday; still with decreased BS+; no tenderness; no guarding; small umbilical hernia remains reducible; no HSM ext - pulses 2+ b/l, no edema Results & Data Results & Data Vital Signs (Past 12 Hours) Vital Signs Temp Pulse Resp BP Pulse Ox O2 Del Method O2 Flow Rate 04/09/23 15:12 36.7 C 76 16 122/68 94 Nasal Cannula 2 04/09/23 08:35 Nasal Cannula 04/09/23 07:56 36.8 C 80 16 120/70 93 Nasal Cannula 2 Laboratory Results Laboratory Results - last 48 hr 04/09/23 04/09/23 04/09/23 05:53 05:53 05:53 WBC 10.85 H RBC 4.09 L Hgb 12.3 L Hct 36.5 L MCV 89.2 MCH 30.1 MCHC 33.7 RDW Std Deviation 46.3 RDW Coeff of Dinorah 14.2 Plt Count 210 MPV 10.4 Immature Gran % (Auto) 0.5 Neut % (Auto) 85.5 Lymph % (Auto) 8.1 [place] % (Auto) 5.4 Eos % (Auto) 0.3 Baso % (Auto) 0.2 Neut # (Auto) 9.28 H Lymph # (Auto) 0.88 L [place] # (Auto) 0.59 Eos # (Auto) 0.03 Baso # (Auto) 0.02 Immature Gran # (Auto) 0.05 Sodium 137 Potassium 3.6 Chloride 105 Carbon Dioxide 25 Anion Gap 7 BUN 13 Creatinine 0.66 Est Cr Clr Drug Dosing 114.3 Est GFR ( Amer) 111.9 Est GFR (Non-Af Amer) 96.6 BUN/Creatinine Ratio 19.7 Glucose 225 H POC Glucose Calcium 8.0 L Magnesium 1.6 L Procalcitonin 0.69 H 04/09/23 04/09/23 07:26 12:22 WBC RBC Hgb Hct MCV MCH MCHC RDW Std Deviation RDW Coeff of Dinorah Plt Count MPV Immature Gran % (Auto) Neut % (Auto) Lymph % (Auto) [place] % (Auto) Eos % (Auto) Baso % (Auto) Neut # (Auto) Lymph # (Auto) [place] # (Auto) Eos # (Auto) Baso # (Auto) Immature Gran # (Auto) Sodium Potassium Chloride Carbon Dioxide Anion Gap BUN Creatinine Est Cr Clr Drug Dosing Est GFR ( Amer) Est GFR (Non-Af Amer) BUN/Creatinine Ratio Glucose POC Glucose 202 H 196 H Calcium Magnesium Procalcitonin PG Care Time/CCT Total # of Minutes Spent Total Time Spent with Patient: Total time spent is greater than 50% in coordination of care (as documented) at patient's floor/unit and/or counseling patient: Coding Level of Care Code 89191 SUB INP/OBS CARE 3/50MIN Diagnoses Acute pancreatitis K85.90 Acute pancreatitis complication: unspecified Pancreatitis type: unspecified pancreatitis type Abdominal pain R10.9 Choledocholithiasis K80.50 Sepsis A41.9 Ileus K56.7 Acute metabolic encephalopathy G93.41 Acute hepatitis B17.9 High anion gap metabolic acidosis E87.29 Type 2 diabetes mellitus E11.9 Acute hyperkalemia E87.5 GUILLERMINA (acute kidney injury) N17.9 Acute respiratory failure with hypoxia J96.01 Malignant melanoma C43.9 Esophageal dysphagia R13.19 HTN (hypertension) I10 History of CVA (cerebrovascular accident) Z86.73 Hypothyroidism E03.9 DKA (diabetic ketoacidosis) E10.11 Diabetes mellitus complication detail: with coma Diabetes mellitus type: type 1 Depression F32.A Hypocalcemia E83.51 Vitamin D deficiency E55.9 (1) Acute pancreatitis Acute pancreatitis complication: unspecified Pancreatitis type: unspecified pancreatitis type Qualified Code(s): K85.90 - Acute pancreatitis without necrosis or infection, unspecified (18) DKA (diabetic ketoacidosis) Diabetes mellitus complication detail: with coma Diabetes mellitus type: type 1 Qualified Code(s): E10.11 - Type 1 diabetes mellitus with ketoacidosis with coma
[2023-04-09] MEDS: MELATONIN 3 MG TAB PO SCH (20:40)
[2023-04-10] MEDS: LEVOTHYROXINE SODIUM 88 MCG TABLET PO SCH (05:54)
[2023-04-10] MEDS: CLOPIDOGREL BISULFATE 75 MG TAB PO SCH (07:36)
[2023-04-10] MEDS: ASPIRIN 81 MG ECTAB PO SCH (07:36)
[2023-04-10] MEDS: ENOXAPARIN INJ 40 MG/0.4 ML SYR SQ SCH ×2 (07:43→11:48)
[2023-04-10] MEDS: INSULIN ASPART PER UNIT CHARGE SC SCH ×4 (08:31→22:56)
[2023-04-10] MEDS ORDERED: OPTIRAY 320 500ml IV ONE (08:55)
[2023-04-10] MEDS ORDERED: LANTUS PER UNIT CHARGE SC SCH (09:00)
--- NOTE | 2023-04-10 09:32 | CT Scan Report ---
CT ANGIOGRAM OF THE CHEST CLINICAL HISTORY: Hypoxia COMPARISON STUDY: Chest x-ray dated 04/05/2023. The chest CT dated 04/04/2022 and 10/29/2019. TECHNIQUE: Following the IV administration of 119 cc of Optiray 320, CT angiogram of the chest was pe rformed from the upper abdomen to the thoracic inlet utilizing the pulmonary embolus protocol. Images are reviewed in the axial, sagittal, and coronal planes. 3-D MIPS images are created and assessed. I V contrast was administered without complication. A dose lowering technique was utilized adhering to the principles of ALARA. CT DOSE: 1709.68 mGy.cm FINDINGS: Thyroid: Atrophic. Thoracic aorta: There is atherosclerotic calcification of the thoracic aorta. There is ectasia of the aortic root which measures 4.9 cm. There is mild aneurysmal dilatation of the ascending thoracic aor ta which measures up to 4.2 cm diameter. The remainder of the thoracic aorta is normal in caliber and the arch demonstrates 4-vessel variant anatomy. No dissection is seen. Pulmonary vasculature: The main pulmonary arteries are dilated suggesting pulmonary artery hypertensi on. There are no filling defects identified in main, lobar, or proximal segmental pulmonary branches to suggest pulmonary embolus. Evaluation of the segmental and subsegmental branches is compromised by motion artifact. Heart: The heart is enlarged noting trace pericardial effusion. The coronary arteries are densely rosana cified. Lungs and pleural spaces: Evaluation of the lung parenchyma is compromised by motion artifact. There are small pleural effusions with dependent atelectasis. No airspace consolidation is seen typical for pneumonia. Secretions are noted in the distal trachea and right mainstem bronchus. A 3 mm pleural-ba sed nodule in the right middle lobe seen on image #74 and a 4 mm left lower lobe nodule seen on image #53 are unchanged from prior examinations and of doubtful significance. Mediastinum: There is no mediastinal lymphadenopathy. Kathy: Clear. Axillae: Surgical clips are noted in the left axilla. There is no axillary lymphadenopathy. Upper abdomen: There is a small hiatal hernia. The tip of a common bile duct stent is seen in the hep atic hilum. Inflammation adjacent to the stomach is likely related to the patient's known history of pancreatitis. Skeletal structures: The skeletal structures are osteopenic. No lytic or blastic bony lesions are see n. IMPRESSION: 1. There is no evidence of central pulmonary embolus in the main, lobar, or proximal segmental pulmon sunny arteries. The segmental and subsegmental branches are not well assessed due to motion artifact. 2. Cardiomegaly. 3. Small pleural effusions with dependent atelectasis. 4. Ectasia of the aortic root and mild aneurysmal dilatation of the ascending thoracic aorta is simil ar to previous. 5. Additional findings as above. ACT 112: Negative or not required by law. Electronically signed by: Stephen Devlin M.D. 04/10/2023 9:29 AM
[2023-04-10] MEDS: CALCITRIOL 0.25 MCG CAPSULE PO SCH (09:48)
[2023-04-10] MEDS: MAGNESIUM OXIDE 400 MG TAB PO SCH ×2 (09:48→22:56)
[2023-04-10] MEDS: FUROSEMIDE INJ 20 MG/2 ML VIAL IV SCH (09:48)
[2023-04-10] MEDS: POTASSIUM CHLORIDE CRTAB 20 MEQ TABCR PO SCH ×2 (09:48→22:55)
[2023-04-10] MEDS: FLUoxetine HCL 20 MG CAP PO SCH (09:48)
[2023-04-10] MEDS: TAMSULOSIN HCL 0.4 MG CAP PO SCH (09:49)
[2023-04-10] MEDS: PANTOprazole 40 MG TAB PO SCH (09:49)
--- NOTE | 2023-04-10 09:57 | CT Scan Report ---
ABDOMEN AND PELVIS CT WITH IV CONTRAST HISTORY: Acute epigastric abdominal pain with distention pancreatitis, ileus, ongoing severe distens ion TECHNIQUE: Multiaxial CT images of the abdomen and pelvis were performed following the IV administrat ion of 119 cc of Optiray, A dose lowering technique was utilized adhering to the principles of ALARA . COMPARISON STUDY: CTA of the chest of same day, CT abdomen and pelvis 04/02/2023 FINDINGS: Cardiomegaly with extensive coronary artery calcifications. Ectasia of the aortic root agai n noted along with mild aneurysmal dilation of the ascending thoracic aorta. Small pleural effusions with mild dependent bibasilar consolidation suggestive of atelectasis. No definite pneumatosis or pne umoperitoneum identified. There is a wedge-shaped area of decreased attenuation involving the mid splenic bending to the capsul e on image 117 measuring 1.6 x 1.0 cm, new from prior. Additional similar appearing lesion of the sup erior spleen, 3.4 cm. Spleen measures 13.9 cm in length. Patent splenic and portal veins. There is mi ld narrowing of the superior mesenteric vein on image 154 series 7 secondary to the edema within the lesser sac. Interstitial and peripancreatic edema with fluid within the lesser sac has progressed fro m prior. Symmetric enhancement of the pancreas. No pancreatic ductal dilation or acute peripancreatic fluid collection. Mildly distended gallbladder. Mild wall thickening of the common bile duct. A comm on bile duct stent is in place. No definite choledocholithiasis identified. Unremarkable liver. Mild periportal lymphadenopathy with lymph nodes measuring up to 1.5 cm, which are likely reactive. Unremarkable adrenal glands. Mild nonspecific bilateral perinephric stranding. Mild cortical scarring with parenchymal thinning of the superior pole right kidney. There are a few cysts noted within the kidneys bilaterally measuring up to 2.9 cm on the left. Several subcentimeter hypodensities of the ki dneys are too small to characterize. Mild bladder wall thickening with partial distention. A Hernandez ca theter is in place. Air within the urinary bladder lumen. Prostamegaly. Small fat filled left inguina l hernia. Atherosclerosis of the abdominal aorta. 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 Prior right inguin al hernia repair. Mild nonspecific distal esophageal wall thickening. Wall thickening of the duodenum and proximal stom ach. Colonic diverticulosis. Scattered air-fluid levels noted throughout the large and small bowel. A ppendix is upper limits of normal in size. Decreased small bowel distention compared to the prior kevin dy. Small bowel loops measure up to 3.1 cm in the central abdomen. Anasarca. Small fat filled umbilic al hernia. No acute fracture. IMPRESSION: 1. Mild progression of the interstitial edematous pancreatitis. No acute peripancreatic fluid collect ion or pancreatic ductal dilation. 2. Status post placement of a common bile duct stent which appears in satisfactory positioning. No ch oledocholithiasis identified. 3. Mild splenomegaly with interval development of two acute splenic infarcts measuring up to 3.4 cm. 4. Decreased small bowel distention with persistent ileus. 5. Small pleural effusions with mild bibasilar atelectasis. 6. Additional findings as above. ACT 112: Negative or not required by law. The above report was generated using voice recognition software. It may contain grammatical, syntax o r spelling errors. Electronically signed by: Shan Reed M.D. 04/10/2023 9:56 AM
[2023-04-10 10:08] LABS: Calcium 7.6 mg/dl (8.6-10.3); Magnesium 1.7 mg/dl (1.7-2.4); Potassium 4.2 mmol/L (3.5-5.1)
[2023-04-10 10:14] LABS: BUN Creatinine Ratio 18.8 (10-20); Creatinine Clr Calc Pharmacy 94.3 ml/min; Est GFR (African American) 103.4 ml/min; Est GFR (Non-African American) 89.2 ml/min
--- NOTE | 2023-04-10 22:32 | Ultrasound Report ---
Exam(s): US VENOUS RIGHT UPPER EXTREMITY EXAM: US Duplex Right Upper Extremity Veins CLINICAL HISTORY: Reason for exam: biceps/triceps swelling, pain; eval DVT. TECHNIQUE: Real-time duplex ultrasound scan of the right upper extremity veins integrating B-mode two-dimensional vascular structure, Doppler spectral analysis, color flow Doppler imaging and compression. COMPARISON: No relevant prior studies available. FINDINGS: Deep veins: Unremarkable. No DVT of the RIGHT upper extremity. Superficial veins: Superficial thrombus in the RIGHT cephalic vein. Soft tissues: Subcutaneous edema. IMPRESSION: 1. Superficial thrombus in the RIGHT cephalic vein. 2. No DVT of the RIGHT upper extremity. Electronically signed by: Issac Zuluaga MD 04/10/23 22:31 PM
[2023-04-10] MEDS: MELATONIN 3 MG TAB PO SCH (22:55)
[2023-04-11] MEDS: LEVOTHYROXINE SODIUM 88 MCG TABLET PO SCH (05:56)
[2023-04-11] MEDS: ASPIRIN 81 MG ECTAB PO SCH (08:43)
[2023-04-11] MEDS: CLOPIDOGREL BISULFATE 75 MG TAB PO SCH (08:43)
[2023-04-11] MEDS: ENOXAPARIN INJ 40 MG/0.4 ML SYR SQ SCH (08:43)
[2023-04-11] MEDS: CALCITRIOL 0.25 MCG CAPSULE PO SCH (08:43)
[2023-04-11] MEDS: FLUoxetine HCL 20 MG CAP PO SCH (08:43)
[2023-04-11] MEDS: TAMSULOSIN HCL 0.4 MG CAP PO SCH (08:44)
[2023-04-11] MEDS: FUROSEMIDE INJ 20 MG/2 ML VIAL IV SCH (08:44)
[2023-04-11] MEDS: PANTOprazole 40 MG TAB PO SCH (08:44)
[2023-04-11] MEDS: MAGNESIUM OXIDE 400 MG TAB PO SCH ×2 (08:44→21:49)
[2023-04-11] MEDS: INSULIN ASPART PER UNIT CHARGE SC SCH ×4 (08:47→21:50)
[2023-04-11] MEDS: POTASSIUM CHLORIDE CRTAB 20 MEQ TABCR PO SCH ×2 (08:54→21:49)
[2023-04-11] MEDS ORDERED: LANTUS PER UNIT CHARGE SC SCH ×2 (09:00→21:00)
--- NOTE | 2023-04-11 09:40 | Pharmacy Report ---
Pharmacy Glycemic Short Note 2 - Date of Service April 11, 2023 - Glycemic Short BSG Results (Last 24 hours): 04/10/23 04/10/23 04/10/23 07:48 11:32 16:55 Glucose 230 H POC Glucose 257 H 218 H 04/10/23 04/11/23 21:07 07:52 Glucose POC Glucose 204 H 100 H OUTPATIENT ANTIDIABETIC REGIMEN: * Metformin 1000 mg PO BID * HBA1C = 7.6% (04/01/23) ASSESSMENT: 04/11: * Payam received 55 units of insulin yesterday, 20 units basal + 35 units bolus. BSGs were uncontrolled: [phone] mg/dL. * Postprandials trended down yesterday after tightening Novolog parameters at lunchtime. Will continue today. * Fasting BSG was 100 mg/dL this AM. Plan to decrease basal dose today given sharp decline in fasting BSG ([phone]). * Will give reduced basal dose this AM and add scaled basal dose at HS. Plan to transition to BID for now. 04/08: * Fasting BSG continues to trend upward. Will increase basal insulin. * Post prandial BSGs are fluctuating. I suspect patient needs more carb coverage. Increased needs potentially due to increased oral intake? Will tighten Novolog parameters. 04/07: * BSGs yesterday were [phone] mg/dl. Patient received only 7 units total of Novolog bolus with morning meals yesterday. No basal dose needed. * Novolog parameters continued the same but reduced basal dose scale at HS. 04/06: * Patient was NPO yesterday and the day before and did not receive any insulin for the last two days. * BSGs yesterday were [phone] mg/dl. * Fasting BSG today was 168 mg/dl. Diet is now ordered and patient is tolerating clears. * Pre-lunch BSG elevated at 201 mg/dl. Added basal insulin on a scale at HS. 04/03: * Patient received total of 30 units of insulin yesterday, of which 25 units were basal insulin * Fasting BSG 125 mg/dL - only day 2 of starting basal insulin, not quite at steady state with dosing * Patient NPO this morning, confirmed with RN he will be NPO rest of the day. Will provide a reduced dose of basal insulin with dinner 5/6: * Mr Hill is a 72 y/o M with a PMH of T2DM who presents with severe pancreatitis. He was initiated on an insulin infusion. * This morning BSGs are stable, within goal range. Insulin infusion reduced to 1 unit/hr. * Patient transitioned from NPO to clear liquid diet at lunch. * Will transition to SQ insulin. Will start with Lantus 25 units (~ 1 unit/hr - also is slightly less than full weight-based stress of 2). Titrate tomorrow based upon BSGs and overnight requirements. * Novolog weight-based stress of 2-3. PLAN FOR INPATIENT GLYCEMIC CONTROL: * Hold outpatient oral diabetes medications * Basal insulin * Lantus 10 units SC AM * Lantus 2-6 units SC HS per scale (see eMAR for more details) * Bolus insulin * NovoLog per scale ACHS or Q6hrs while NPO * Goal Range: Low 110 mg/dL - High 140 mg/dL * Correction Factor: 15 mg/dL/unit * Nutritional / Prandial insulin per carb ratio of 1 unit per 5 grams CHO consumed
--- NOTE | 2023-04-11 09:49 | Gastroenterology Progress Note ---
Date of Service April 11, 2023 Assessment & Plan (1) Acute pancreatitis: Plan: 72 year old male admitted w SIRS, gallstone pancreatitis, ileus S/P ERCP w choledocholithiasis removal, biliary sphincterectomy, CBD stent placement clinically feeling well. Repeat CT yesterday shows mild progression of the interstitial edematous pancreatitis, mild splenomegaly with interval development of two acute splenic infarcts and decreased small bowel distention with p ersistent ileus. Appreciate general surgery recommendations/management regarding splenic infarct Regarding ileus, he is pain free, tolerate PO and moving bowels Would encourage ambulation as tolerated, OOB to chair as tolerated Would use Miralax 1 capful daily for a bowel regimen Ongoing management/correction of elecrolytes per primary service Regarding his pancreatitis, he is s/p ERCP for biliary decompression w/ normalized LFTs Would continue smaller, more frequent, low fat foods as tolerated Antiemetics PRN while avoiding narcotic analgesia in the setting of ileus Analgesia PRN Repeat ERCP in 3 months to remove biliary stent Recall GI as needed Thank you for allowing us to participate in the care of this patient. Please call with any acute changes, questions or concerns. Please see addendum below with additional recommendation from my supervising physician. Admission and Anticipated Discharge Date Admission Date: March 31, 2023 Supervising Physician Co-Signing Physician Notes I personally saw and evaluated the patinet on 04/11/2023 with ALPHONSO Velazquez and agree with her findings and plan of care. GI was asked to re-evaluate as CT imaging noted slight worsening of pancreatitis however patient is clinically improved and tolerating a liquid diet. He denies any abdominal pain. He is also having bowel movements and passed a stool right before we evaluated him this AM. CT from yesterday reviewed with ongoing ileus reported. CBD stent appears in good position. There were 2 new acute splenic infarcts noted. On physical exam patient is sitting up in the chair. Abdomen is soft, non- tender, non-distended. Patient is clinically improving without any abdominal pain. Would advance diet as tolerated. Miralax 17 g BID to help with ileus and ensure patient is getting up out of bed working with physical therapy and into a chair which will help as well. Will arrange outpatient ERCP in 3 months for stent removal at that time. Agree with him following up outpatient with general surgery to discuss cholecys tectomy. Hortensia Guerra DO Gastroenterology and Hepatology Subjective Gi was asked to re-evaluate. Hx gallstone panc. S/P ERCP w choledocholithiasis removal, biliary sphincterectomy, CBD stent placement Re-imaged showing progressive panc, ileus and splenic infarct He notes his abd pain is improving. He is hungry, tolerating PO He is moving his bowels with report of a large BM yesterday No BM yet today Denies black or bloody stools No fevers CTAP 2022: 1. Mild progression of the interstitial edematous pancreatitis. No acute peripancreatic fluid collection or pancreatic ductal dilation. Status post placement of a common bile duct stent which appears in satisfactory positioning. No choledocholithiasis identified.. Mild splenomegaly with interval development of two acute splenic infarcts measuring up to 3.4 cm. Decreased small bowel distention with persistent ileus. Small pleural effusions with mild bibasilar atelectasis. Review of Systems Review of Systems: All systems reviewed & are unremarkable except as noted in HPI & below Physical Exam Constitutional: WD/WN, vitals as above Sitting upright in bed eating breakfast Respiratory: normal respiratory effort, lungs clear to auscultation Cardiovascular: Rate/Rhythm: regular rate Gastrointestinal (Abdomen): Inspection/Auscultation: abdomen normal to inspection, + abdomen distended (mild) and normal bowel sounds Percussion/Palpation: + abdomen tender (mild) and abdomen soft Skin: no rashes, warm and dry Results & Data Vital Signs (Past 12 Hours) Vital Signs Temp Pulse Resp BP Pulse Ox O2 Del Method O2 Flow Rate 04/11/23 07:05 36.6 C 75 18 121/74 95 Nasal Cannula 1 Laboratory Results 04/11/23 04/10/23 04/10/23 Range/Units 07:52 21:07 16:55 Sodium (136-145) mmol/L Potassium (3.5-5.1) mmol/L Chloride (98-107) mmol/L Carbon Dioxide (21-32) mmol/L Anion Gap (3-11) BUN (6-23) mg/dl Creatinine (0.6-1.4) mg/dl Est Cr Clr Drug Dosing ml/min Est GFR ( Amer) ml/min Est GFR (Non-Af Amer) ml/min BUN/Creatinine Ratio (10-20) Glucose (70-99(Fasting)) mg/dl POC Glucose 100 H 204 H 218 H (70-99) mg/dl Calcium (8.6-10.3) mg/dl Magnesium (1.7-2.4) mg/dl 04/10/23 04/10/23 Range/Units 11:32 07:48 Sodium 136 (136-145) mmol/L Potassium 4.2 (3.5-5.1) mmol/L Chloride 101 (98-107) mmol/L Carbon Dioxide 26 (21-32) mmol/L Anion Gap 9 (3-11) BUN 15 (6-23) mg/dl Creatinine 0.80 (0.6-1.4) mg/dl Est Cr Clr Drug Dosing 94.3 ml/min Est GFR ( Amer) 103.4 ml/min Est GFR (Non-Af Amer) 89.2 ml/min BUN/Creatinine Ratio 18.8 (10-20) Glucose 230 H (70-99(Fasting)) mg/dl POC Glucose 257 H (70-99) mg/dl Calcium 7.6 L (8.6-10.3) mg/dl Magnesium 1.7 (1.7-2.4) mg/dl (1) Acute pancreatitis Acute pancreatitis complication: unspecified Pancreatitis type: unspecified pancreatitis type Qualified Code(s): K85.90 - Acute pancreatitis without necrosis or infection, unspecified
--- NOTE | 2023-04-11 11:18 | Hospitalist Progress Note ---
Date of Service April 10, 2023 Assessment & Plan (1) Swelling of right upper extremity: Plan: obtain upper ext venous duplex - r/o DVT, r/o superficial phlebitis elevate arm on pillows await doppler (2) Acute pancreatitis: Plan: Peak lipase 2410. Lipase has normalized. Course complicated by ileus, sepsis, choledocholithiasis, and needing ICU level of care early on in admission. Acute pancreatitis due to gallstones given the choledocholithiasis as confirmed on ERCP. Pancreatitis resolved. diet - full liquids. No advancement today due to ongoing ileus and CT showing progressive pancreatitis findings. [facility] about [facility] and they will see again in the next 24 hours. Cont augmentin 875mg PO BID today then stop all abx. 10 days of Rx completed. (3) Splenic infarct: Plan: [address] a/p this am likely due to #2 this should not require anticoagulation (4) Abdominal pain: Plan: Resolved s/p ERCP and retrieval of CBD stones as well as resolution of acute pancreatitis. Ileus also likely contributed to pain. Splenic infarcts seen on CT may have contributed to pain last week. Fortunately his abd pain is resolved. LFTs have improved over the last few days - nearly normal on last check. Procal has trended down nicely from 25 to 5 to <1 finish augmentin course today. (5) Choledocholithiasis: Plan: s/p ERCP 04/05/23 with 2 stones removed and stent placed. Appreciate [facility] GI consult and assistance. Blood cx's from admission negative. LFTs have improved nicely during the hospital stay. d/c augmentin after today's abx doses. he has completed a total of 10 days. (6) Sepsis: Plan: suspected can't fully rule out a partially treated cholecystitis but unlikely as multiple imaging studies have not shown acute cholecystitis findings no purulent bile on ERCP thus no overt cholangitis (but certainly his clinical course may have been c/w such) today is day 10 of 10 of IV/PO abxl (zosyn/augmentin) CT a/p today as above (7) Ileus: Plan: 2nd to acute pancreatitis. Gradually improving. CT a/p today shows the dilated loops of bowel are improved from last study the previous week. passing stools and flatus albeit not that frequently. Tolerating full liquids. Again encouraged him to get OOB to chair and more activity in general. Keep electrolytes wnl. (8) Acute metabolic encephalopathy: Plan: IMPROVED but still intermittently confused. Recall of events is very poor. Insight is poor. Motivation is poor. Altered MS 2nd to severe pancreatitis with choledocholithiasis and sepsis. Supportive care. Avoid sedatives/benzos. Melatonin 3mg HS to reinforce sleep/wake cycle. (9) Acute hepatitis: Plan: LFTs improving/nearly normalized. 2nd to choledocholithiasis. Can't rule out a partially treated cholecystitis but unlikely. (10) High anion gap metabolic acidosis: Plan: Present on admission. 2nd to DKA & lactic acidosis. Resolved. (11) Type 2 diabetes mellitus: Plan: Hemoglobin A1C 7.6% this admission. Resolved DKA (had been on insulin infusion early in stay). Metformin is on hold. Cont bolus insulin therapy. BSGs remain high - pharmacy to adjust insulins. (12) GUILLERMINA (acute kidney injury): Plan: resolved - peak Cr had been 2.3, trended to <1 Creatinine has been stable over the last several days (13) Acute respiratory failure with hypoxia: Plan: 2nd to acidosis at time of admission. required non-rebreather by report at time of ER presentation. resolved. He had been 10+ liters positive for the admission and was showing signs of 3rd spacing on exam and CT. CXR obtained 04/05 without edema or large effusions but [id number] stop IV fluids and provided gentle diuresis for several days. Despite minimal O2 requirement his weight is down to about his weight from admission. No large effusions on CTA today. No PEs. No pulm edema. No pneumonia. Mild O2 requirement likely atelectasis from poor inspiratory effort in setting of massively distended abdomen. (14) Malignant melanoma: Plan: back, s/p removal just prior to admission wounds continues to look with intact sutures need to figure out who performed his surgery and when sutures should be removed (15) Esophageal dysphagia: Plan: cont PPI (16) HTN (hypertension): Plan: Bps satisfactory JOSÉ MIGUEL inhibitor remains on hold (17) History of CVA (cerebrovascular accident): Plan: Was taking aspirin and Plavix pre-hospital These were on hold for his ERCP Both plavix & asa now resumed (18) Hypothyroidism: Plan: Continue levothyroxine. TSH 0.192 - will not adjust at this time. Simply repeat as outpatient. (19) DKA (diabetic ketoacidosis): Plan: present on admission - resolved (20) Depression: Plan: long-standing per daughter will increase to 40mg prozac daily consider adding another agent such as wellbutrin or other in the next week or two family counseled that prozac increase will take several weeks to take effect (21) Hypocalcemia: Plan: Total calcium level today 7.6 corrected for low albumin the calcium level is wnl low calcium is due at least in part to vit D def s/p calcium gluconate several times + rocaltrol while here replace low vit D (22) Vitamin D deficiency: Plan: 25-OH vit D level = 11.9 provided ergocalciferol 50,000 units x 1 on 04/07/23 then repeat weekly for 7 more weeks also remains on calcitriol 0.25mcg daily. trend calcium levels Plan VTE Prophylaxis - SC lovenox cont pulmonary toilet with flutter valve and incentive spirometry daughters updated this past week multiple times including today cont PT, OT rehab post-d/c will be needed Admission and Anticipated Discharge Date Admission Date: March 31, 2023 Subjective patient sitting in chair by the window denies any specific complaints no nausea, emesis or abd pain passing flatus no stool yet today denies any dyspnea but still requiring small amount of NC o2 staff are encouraging him to do incentive & flutter with respect to full liquids - taking very little of his trays - eats the ice cream but that is it of note - staff and family noted right arm swelling today Review of Systems Review of Systems: gen - weak, fatigue, poor appetite cv - no chest pain pulm - no dyspnea or cough GI - bloating a little better; no pain - bender removed today Physical Exam Physical Exam: gen - NAD, sitting in chair by window, actually smiled and laughed a little today eyes - no icterus mouth - buccal mucosa is moist but tongue is very dry neck - no JVD heart - RRR, s1 s2, no murmur lungs - CTA b/l, decreased BS bases with focal rhonchi L base abd - mod distension today - improved from prior exam; BS+ although diminished; no tenderness; no guarding; small umbilical hernia remains reducible; no HSM ext - pulses 2+ b/l feet musculo - right upper arm swollen with mild warmth; the area of concern is proximal to a right antecubital IV; no palpable cord; left arm is wnl skin - upper back - linear vertical wound from melanoma resection, sutures intact, clean Results & Data Results & Data Vital Signs (Past 12 Hours) Vital Signs Temp Pulse Resp BP Pulse Ox O2 Del Method O2 Flow Rate 04/10/23 14:16 36.4 C L 79 16 128/78 94 Nasal Cannula 1 Laboratory Results Laboratory Results - last 48 hr 04/09/23 04/09/23 04/09/23 12:22 17:06 20:35 Sodium Potassium Chloride Carbon Dioxide Anion Gap BUN Creatinine Est Cr Clr Drug Dosing Est GFR ( Amer) Est GFR (Non-Af Amer) BUN/Creatinine Ratio Glucose POC Glucose 196 H 183 H 234 H Calcium Magnesium 04/10/23 04/10/23 04/10/23 07:48 07:55 11:32 Sodium 136 Potassium 4.2 Chloride 101 Carbon Dioxide 26 Anion Gap 9 BUN 15 Creatinine 0.80 Est Cr Clr Drug Dosing 94.3 Est GFR ( Amer) 103.4 Est GFR (Non-Af Amer) 89.2 BUN/Creatinine Ratio 18.8 Glucose 230 H POC Glucose 233 H 257 H Calcium 7.6 L Magnesium 1.7 04/10/23 16:55 Sodium Potassium Chloride Carbon Dioxide Anion Gap BUN Creatinine Est Cr Clr Drug Dosing Est GFR ( Amer) Est GFR (Non-Af Amer) BUN/Creatinine Ratio Glucose POC Glucose 218 H Calcium Magnesium Diagnostic Findings CT ANGIOGRAM OF THE CHEST CLINICAL HISTORY: Hypoxia COMPARISON STUDY: Chest x-ray dated 04/05/2023. The chest CT dated 04/04/2022 and 10/29/2019. TECHNIQUE: Following the IV administration of 119 cc of Optiray 320, CT angiogram of the chest was performed from the upper abdomen to the thoracic inlet utilizing the pulmonary embolus protocol. Images are reviewed in the axial, sagittal, and coronal planes. 3-D MIPS images are created and assessed. IV contrast was administered without complication. A dose lowering technique was utilized adhering to the principles of ALARA. CT DOSE: 1709.68 mGy.cm FINDINGS: Thyroid: Atrophic. Thoracic aorta: There is atherosclerotic calcification of the thoracic aorta. There is ectasia of the aortic root which measures 4.9 cm. There is mild aneurysmal dilatation of the ascending thoracic aorta which measures up to 4.2 cm diameter. The remainder of the thoracic aorta is normal in caliber and the arch demonstrates 4-vessel variant anatomy. No dissection is seen. Pulmonary vasculature: The main pulmonary arteries are dilated suggesting pulmonary artery hypertension. There are no filling defects identified in main, lobar, or proximal segmental pulmonary branches to suggest pulmonary embolus. Evaluation of the segmental and subsegmental branches is compromised by motion artifact. Heart: The heart is enlarged noting trace pericardial effusion. The coronary arteries are densely calcified. Lungs and pleural spaces: Evaluation of the lung parenchyma is compromised by motion artifact. There are small pleural effusions with dependent atelectasis. No airspace consolidation is seen typical for pneumonia. Secretions are noted in the distal trachea and right mainstem bronchus. A 3 mm pleural-based nodule in the right middle lobe seen on image #74 and a 4 mm left lower lobe nodule seen on image #53 are unchanged from prior examinations and of doubtful significance. Mediastinum: There is no mediastinal lymphadenopathy. Kathy: Clear. Axillae: Surgical clips are noted in the left axilla. There is no axillary lymphadenopathy. Upper abdomen: There is a small hiatal hernia. The tip of a common bile duct stent is seen in the hepatic hilum. Inflammation adjacent to the stomach is likely related to the patient's known history of pancreatitis. Skeletal structures: The skeletal structures are osteopenic. No lytic or blastic bony lesions are seen. IMPRESSION: 1. There is no evidence of central pulmonary embolus in the main, lobar, or proximal segmental pulmonary arteries. The segmental and subsegmental branches are not well assessed due to motion artifact. 2. Cardiomegaly. 3. Small pleural effusions with dependent atelectasis. 4. Ectasia of the aortic root and mild aneurysmal dilatation of the ascending thoracic aorta is similar to previous. 5. Additional findings as above. ACT 112: Negative or not required by law. Electronically signed by: Stephen Devlin M.D. 04/10/2023 9:29 AM Dictated:04/10/23918 Transcribed: 04/10/[address] WITH IV CONTRAST HISTORY: Acute epigastric abdominal pain with distention pancreatitis, ileus, ongoing severe distension TECHNIQUE: Multiaxial CT images of the abdomen and pelvis were performed following the IV administration of 119 cc of Optiray, A dose lowering technique was utilized adhering to the principles of ALARA. COMPARISON STUDY: CTA of the chest of same day, CT abdomen and pelvis 04/02/2023 FINDINGS: Cardiomegaly with extensive coronary artery calcifications. Ectasia of the aortic root again noted along with mild aneurysmal dilation of the ascending thoracic aorta. Small pleural effusions with mild dependent bibasilar consolida tion suggestive of atelectasis. No definite pneumatosis or pneumoperitoneum identified. There is a wedge-shaped area of decreased attenuation involving the mid splenic bending to the capsule on image 117 measuring 1.6 x 1.0 cm, new from prior. Additional similar appearing lesion of the superior spleen, 3.4 cm. Spleen measures 13.9 cm in length. Patent splenic and portal veins. There is mild narro wing of the superior mesenteric vein on image 154 series 7 secondary to the edema within the lesser sac. Interstitial and peripancreatic edema with fluid within the lesser sac has progressed from prior. Symmetric enhancement of the pancreas. No pancreatic ductal dilation or acute peripancreatic fluid collection. Mildly distended gallbladder. Mild wall thickening of the common bile duct. A common bile duct stent is in place. No definite choledocholithiasis identified. Unremarkable liver. Mild periportal lymphadenopathy with lymph nodes measuring up to 1.5 cm, which are likely reactive. Unremarkable adrenal glands. Mild nonspecific bilateral perinephric stranding. Mild cortical scarring with parenchymal thinning of the superior pole right kidney. There are a few cysts noted within the kidneys bilaterally measuring up to 2.9 cm on the left. Several subcentimeter hypodensities of the kidneys are too small to characterize. Mild bladder wall thickening with partial distention. A Bender catheter is in place. Air within the urinary bladder lumen. Prostamegaly. Small fat filled left inguinal hernia. Atherosclerosis of the abdominal aorta. 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 Prior right inguinal hernia repair. Mild nonspecific distal esophageal wall thickening. Wall thickening of the duodenum and proximal stomach. Colonic diverticulosis. Scattered air-fluid levels noted throughout the large and small bowel. Appendix is upper limits of normal in size. Decreased small bowel distention compared to the prior study. Small bowel loops measure up to 3.1 cm in the central abdomen. Anasarca. Small fat filled umbilical hernia. No acute fracture. IMPRESSION: 1. Mild progression of the interstitial edematous pancreatitis. No acute peripancreatic fluid collection or pancreatic ductal dilation. 2. Status post placement of a common bile duct stent which appears in satisfactory positioning. No choledocholithiasis identified. 3. Mild splenomegaly with interval development of two acute splenic infarcts measuring up to 3.4 cm. 4. Decreased small bowel distention with persistent ileus. 5. Small pleural effusions with mild bibasilar atelectasis. 6. Additional findings as above. ACT 112: Negative or not required by law. The above report was generated using voice recognition software. It may contain grammatical, syntax or spelling errors. Electronically signed by: Shan Reed M.D. 04/10/2023 9:56 AM Dictated:04/10/23 09 Transcribed: 04/10/23942 PG Care Time/CCT Total # of Minutes Spent Total Time Spent with Patient: Total time spent is greater than 50% in coordination of care (as documented) at patient's floor/unit and/or counseling patient: Coding Level of Care Code 08775 SUB INP/OBS CARE 3/50MIN Diagnoses Swelling of right upper extremity M79.89 Acute pancreatitis K85.90 Acute pancreatitis complication: unspecified Pancreatitis type: unspecified pancreatitis type Splenic infarct D73.5 Abdominal pain R10.9 Choledocholithiasis K80.50 Sepsis A41.9 Ileus K56.7 Acute metabolic encephalopathy G93.41 Acute hepatitis B17.9 High anion gap metabolic acidosis E87.29 Type 2 diabetes mellitus E11.9 GUILLERMINA (acute kidney injury) N17.9 Acute respiratory failure with hypoxia J96.01 Malignant melanoma C43.9 Esophageal dysphagia R13.19 HTN (hypertension) I10 History of CVA (cerebrovascular accident) Z86.73 Hypothyroidism E03.9 DKA (diabetic ketoacidosis) E10.11 Diabetes mellitus complication detail: with coma Diabetes mellitus type: type 1 Depression F32.A Hypocalcemia E83.51 Vitamin D deficiency E55.9 (2) Acute pancreatitis Acute pancreatitis complication: unspecified Pancreatitis type: unspecified pancreatitis type Qualified Code(s): K85.90 - Acute pancreatitis without necrosis or infection, unspecified (19) DKA (diabetic ketoacidosis) Diabetes mellitus complication detail: with coma Diabetes mellitus type: type 1 Qualified Code(s): E10.11 - Type 1 diabetes mellitus with ketoacidosis with coma
[2023-04-11] MEDS ORDERED: POLYETHYLENE (MIRALAX) 17 GM PACK PO SCH (14:30)
--- NOTE | 2023-04-11 14:37 | Hospitalist Progress Note ---
Date of Service April 11, 2023 Assessment & Plan (1) Acute pancreatitis: Plan: Peak lipase 2410. Lipase has normalized. Course complicated by ileus, sepsis, choledocholithiasis, and needing ICU level of care early on in admission. Acute pancreatitis due to gallstones given the choledocholithiasis as confirmed on ERCP. Also with 2 new splenic infarcts on repeat CT abd/pel likely related to pancreatitis Ileus resolving, moving bowels Pancreatitis resolved. Abd pain improved Adv diet to low fat Completted course of antibiotics through IV and then augmentin 875mg PO BID for total 10 days plan for outpt ERCP and removal of stent in 3 months with GI plan for outpt Gen Surg elective cholecystectomy (2) Swelling of right upper extremity: Plan: obtain upper ext venous duplex - r/o DVT, r/o superficial phlebitis elevate arm on pillows Doppler shows cephalic vein thrombus, no DVT add warm compresses (3) Splenic infarct: Plan: 2 infarcts seen on repeat CT a/p likely due to #2 this should not require anticoagulation discussed with Surgery who agrees 2/2 pancreatitis (4) Abdominal pain: Plan: Resolved s/p ERCP and retrieval of CBD stones as well as resolution of acute pancreatitis. Ileus also likely contributed to pain. Splenic infarcts seen on CT may have contributed to pain Fortunately his abd pain is resolved. LFTs have improved over the last few days - nearly normal on last check. Procal has trended down nicely from 25 to 5 to <1 (5) Choledocholithiasis: Plan: s/p ERCP 04/05/23 with 2 stones removed and stent placed. Appreciate [facility] GI consult and assistance. Blood cx's from admission negative. LFTs have improved nicely during the hospital stay. completed course of augmentin needs CBD stent removal in 3 mo with GI (6) Sepsis: Plan: suspected can't fully rule out a partially treated cholecystitis but unlikely as multiple imaging studies have not shown acute cholecystitis findings no purulent bile on ERCP thus no overt cholangitis (but certainly his clinical course may have been c/w such) Resolved, completed abx course (7) Ileus: Plan: 2nd to acute pancreatitis. Gradually improving. CT a/p shows the dilated loops of bowel are improved from last study the previous week. passing stools and flatus albeit not that frequently. Tolerating full liquids. Adv to low fat Again encouraged him to get OOB to chair and more activity in general. Keep electrolytes wnl. Add on Miralax bid as per GI (8) Acute metabolic encephalopathy: Plan: IMPROVED but still intermittently confused. Recall of events is very poor. Insight is poor. Motivation is poor. Altered MS 2nd to severe pancreatitis with choledocholithiasis and sepsis. Supportive care. Avoid sedatives/benzos. Melatonin 3mg HS to reinforce sleep/wake cycle. (9) Acute hepatitis: Plan: LFTs improving/nearly normalized. 2nd to choledocholithiasis. Can't rule out a partially treated cholecystitis but unlikely. (10) High anion gap metabolic acidosis: Plan: Present on admission. 2nd to DKA & lactic acidosis. Resolved. (11) Type 2 diabetes mellitus: Plan: Hemoglobin A1C 7.6% this admission. Resolved DKA (had been on insulin infusion early in stay). Metformin is on hold. Cont bolus insulin therapy. BSGs remain high - pharmacy to adjust insulins. (12) GUILLERMINA (acute kidney injury): Plan: resolved - peak Cr had been 2.3, trended to <1 Creatinine has been stable over the last several days (13) Acute respiratory failure with hypoxia: Plan: 2nd to acidosis at time of admission. required non-rebreather by report at time of ER presentation. resolved. He had been 10+ liters positive for the admission and was showing signs of 3rd spacing on exam and CT. CXR obtained 04/05 without edema or large effusions but [id number] stopped IV fluids and provided gentle diuresis for several days. Improving, weaning off O2, now on ly +6L for total stay -continue IV lasix daily follow I/Os, daily weights No large effusions on CTA No PEs. No pulm edema. No pneumonia. Mild O2 requirement likely atelectasis from poor inspiratory effort in setting of massively distended abdomen. (14) Malignant melanoma: Plan: back, s/p removal just prior to admission wounds continues to look with intact sutures need to figure out who performed his surgery and when sutures should be removed- likely [facility] as he (15) Esophageal dysphagia: Plan: cont PPI (16) HTN (hypertension): Plan: Bps satisfactory JOSÉ MIGUEL inhibitor remains on hold (17) History of CVA (cerebrovascular accident): Plan: Was taking aspirin and Plavix pre-hospital These were on hold for his ERCP Both plavix & asa now resumed (18) Hypothyroidism: Plan: Continue levothyroxine. TSH 0.192 - will not adjust at this time. Simply repeat as outpatient. (19) DKA (diabetic ketoacidosis): Plan: present on admission - resolved (20) Depression: Plan: long-standing per daughter increased to 40mg prozac daily consider adding another agent such as wellbutrin or other in the next week or two family counseled that prozac increase will take several weeks to take effect (21) Hypocalcemia: Plan: Total calcium level 7.6 corrected for low albumin the calcium level is wnl low calcium is due at least in part to vit D def s/p calcium gluconate several times + rocaltrol while here replace low vit D (22) Vitamin D deficiency: Plan: 25-OH vit D level = 11.9 provided ergocalciferol 50,000 units x 1 on 04/07/23 then repeat weekly for 7 more weeks also remains on calcitriol 0.25mcg daily. trend calcium levels Plan VTE Prophylaxis - SC lovenox cont pulmonary toilet with flutter valve and incentive spirometry cont PT, OT rehab post-d/c will be needed-ok for discharge tomorrow-d/w CM Admission and Anticipated Discharge Date Admission Date: March 31, 2023 Subjective Pt reports feeling a little better today. Moved bowels this AM.Ate low fat diet for lunch Physical Exam Constitutional: WD/WN, vitals as above Respiratory: normal respiratory effort, lungs clear to auscultation Cardiovascular: RRR, no murmur, no edema Gastrointestinal (Abdomen): normal bowel sounds, soft, nontender, no hepatosplenomegaly Results & Data Results & Data Vital Signs (Past 12 Hours) Vital Signs Temp Pulse Resp BP Pulse Ox O2 Del Method O2 Flow Rate 04/11/23 08:00 Nasal Cannula 1 04/11/23 07:05 36.6 C 75 18 121/74 95 Nasal Cannula 1 Laboratory Results no labs PG Care Time/CCT Total # of Minutes Spent Total Time Spent with Patient: Total time spent is greater than 50% in coordination of care (as documented) at patient's floor/unit and/or counseling patient: Coding Level of Care Code 16690 SUB INP/OBS CARE 2/35MIN Diagnoses Acute pancreatitis K85.90 Acute pancreatitis complication: unspecified Pancreatitis type: unspecified pancreatitis type Swelling of right upper extremity M79.89 Splenic infarct D73.5 Abdominal pain R10.9 Choledocholithiasis K80.50 Sepsis A41.9 Ileus K56.7 Acute metabolic encephalopathy G93.41 Acute hepatitis B17.9 High anion gap metabolic acidosis E87.29 Type 2 diabetes mellitus E11.9 GUILLERMINA (acute kidney injury) N17.9 Acute respiratory failure with hypoxia J96.01 Malignant melanoma C43.9 Esophageal dysphagia R13.19 HTN (hypertension) I10 History of CVA (cerebrovascular accident) Z86.73 Hypothyroidism E03.9 DKA (diabetic ketoacidosis) E10.11 Diabetes mellitus complication detail: with coma Diabetes mellitus type: type 1 Depression F32.A Hypocalcemia E83.51 Vitamin D deficiency E55.9 (1) Acute pancreatitis Acute pancreatitis complication: unspecified Pancreatitis type: unspecified pancreatitis type Qualified Code(s): K85.90 - Acute pancreatitis without necrosis or infection, unspecified (19) DKA (diabetic ketoacidosis) Diabetes mellitus complication detail: with coma Diabetes mellitus type: type 1 Qualified Code(s): E10.11 - Type 1 diabetes mellitus with ketoacidosis with coma
[2023-04-11] MEDS: POLYETHYLENE (MIRALAX) 17 GM PACK PO SCH ×2 (15:11→21:49)
--- NOTE | 2023-04-11 17:05 | Hospitalist Progress Note ---
Date of Service April 02, 2023 Assessment & Plan Admission and Anticipated Discharge Date Admission Date: March 31, 2023 Results & Data Results & Data Vital Signs (Past 12 Hours) Vital Signs Temp Pulse Pulse Resp BP Pulse Ox O2 Del Method 04/02/23 08:00 Room Air 04/02/23 08:02 37.1 C 75 22 138/78 93 Room Air 04/02/23 07:35 81 04/02/23 03:16 36.8 C 72 18 121/78 95 Room Air PG Care Time/CCT Total # of Minutes Spent Total Time Spent with Patient: Total time spent is greater than 50% in coordination of care (as documented) at patient's floor/unit and/or counseling patient: Coding Level of Care Code 17555 SUB INP/OBS CARE 2/35MIN Diagnoses
[2023-04-11] MEDS: MELATONIN 3 MG TAB PO SCH (21:49)
[2023-04-12] MEDS: LEVOTHYROXINE SODIUM 88 MCG TABLET PO SCH (05:34)
[2023-04-12 07:27] LABS: Basophils # (auto) 0.02 K/uL (0-0.2); Basophils % (auto) 0.3 %; Eosinophils # (auto) 0.02 K/uL (0-0.50); Eosinophils % (auto) 0.3 %; Hematocrit (blood only) 33.8 % (42.0-52.0); Hemoglobin 11.3 g/dl (14.0-18.0); Immature Granulocytes # (auto) 0.06 K/uL (0.01-0.20); Immature Granulocytes % (auto) 0.8 %; Lymphocytes # (auto) 1.18 K/uL (1.2-3.4); Lymphocytes % (auto) 14.9 %; Mean Corpuscular Hemoglobin 30.5 pg (25.0-34.0); Mean Corpuscular Hgb Conc 33.4 g/dL (32.0-36.0); Mean Corpuscular Volume 91.4 fL (80.0-100.0); Monocytes # (auto) 0.57 K/uL (0.11-0.59); Monocytes % (auto) 7.2 %; Neutrophils # (auto) 6.06 K/uL (1.40-6.50); Neutrophils % (auto) 76.5 %; Platelet Count 271 K/uL (130-400); RDW Coefficient of Variation 14.1 % (11.5-14.5); RDW Standard Deviation 47.3 fL (36.4-46.3); White Blood Count 7.91 K/ul (4.8-10.8)
[2023-04-12 07:55] LABS: Albumin Globulin Ratio 0.9 (0.9-2); Albumin Level 2.5 gm/dl (3.4-5.0); BUN Creatinine Ratio 18.4 (10-20); Bilirubin,Total 0.5 mg/dl (0.2-1.0); Creatinine Clr Calc Pharmacy 99.3 ml/min; Est GFR (African American) 105.6 ml/min; Est GFR (Non-African American) 91.1 ml/min; Globulin 2.9 gm/dl (2.5-4.0); Magnesium 1.7 mg/dl (1.7-2.4); Potassium 4.2 mmol/L (3.5-5.1); Total Protein 5.4 gm/dl (6.0-8.3)
[2023-04-12] MEDS: TAMSULOSIN HCL 0.4 MG CAP PO SCH (08:36)
[2023-04-12] MEDS: PANTOprazole 40 MG TAB PO SCH (08:36)
[2023-04-12] MEDS: MAGNESIUM OXIDE 400 MG TAB PO SCH ×2 (08:36→21:34)
[2023-04-12] MEDS: CLOPIDOGREL BISULFATE 75 MG TAB PO SCH (08:36)
[2023-04-12] MEDS: CALCITRIOL 0.25 MCG CAPSULE PO SCH (08:37)
[2023-04-12] MEDS: FUROSEMIDE INJ 20 MG/2 ML VIAL IV SCH (08:37)
[2023-04-12] MEDS: ASPIRIN 81 MG ECTAB PO SCH (08:37)
[2023-04-12] MEDS: FLUoxetine HCL 20 MG CAP PO SCH (08:37)
[2023-04-12] MEDS: POLYETHYLENE (MIRALAX) 17 GM PACK PO SCH ×2 (08:38→21:35)
[2023-04-12] MEDS: ENOXAPARIN INJ 40 MG/0.4 ML SYR SQ SCH (08:38)
[2023-04-12] MEDS: POTASSIUM CHLORIDE CRTAB 20 MEQ TABCR PO SCH ×2 (08:55→21:37)
[2023-04-12] MEDS: LANTUS PER UNIT CHARGE SC SCH (08:56)
[2023-04-12] MEDS: INSULIN ASPART PER UNIT CHARGE SC SCH ×4 (08:56→21:37)
--- NOTE | 2023-04-12 12:22 | Pharmacy Report ---
Pharmacy Glycemic Short Note 2 - Date of Service April 12, 2023 - Glycemic Short BSG Results (Last 24 hours): 04/11/23 04/11/23 04/12/23 16:59 21:00 05:54 Glucose 214 H POC Glucose 137 H 87 04/12/23 04/12/23 08:05 11:46 Glucose POC Glucose 200 H 226 H OUTPATIENT ANTIDIABETIC REGIMEN: * Metformin 1000 mg PO BID * HBA1C = 7.6% (04/01/23) ASSESSMENT: 04/12/23 * Patient's BSGs yesterday were [phone] mg/dL. Patient received 55 units of insulin (12 units of basal and 43 units of bolus). * Fasting today is 200 mg/dL. * Will give Lantus 15 units SQ daily as 20 units was too aggressive. * Continue Novolog. Patient ate a large amount of carbohydrates with dinner (146 grams) and BSG stayed steady so therefore is appropriate. 04/11: * Payam received 55 units of insulin yesterday, 20 units basal + 35 units bolus. BSGs were uncontrolled: [phone] mg/dL. * Postprandials trended down yesterday after tightening Novolog parameters at lunchtime. Will continue today. * Fasting BSG was 100 mg/dL this AM. Plan to decrease basal dose today given sharp decline in fasting BSG ([phone]). * Will give reduced basal dose this AM and add scaled basal dose at HS. Plan to transition to BID for now. 04/08: * Fasting BSG continues to trend upward. Will increase basal insulin. * Post prandial BSGs are fluctuating. I suspect patient needs more carb coverage. Increased needs potentially due to increased oral intake? Will tighten Novolog parameters. 04/07: * BSGs yesterday were [phone] mg/dl. Patient received only 7 units total of Novolog bolus with morning meals yesterday. No basal dose needed. * Novolog parameters continued the same but reduced basal dose scale at HS. 04/06: * Patient was NPO yesterday and the day before and did not receive any insulin for the last two days. * BSGs yesterday were [phone] mg/dl. * Fasting BSG today was 168 mg/dl. Diet is now ordered and patient is tolerating clears. * Pre-lunch BSG elevated at 201 mg/dl. Added basal insulin on a scale at HS. 04/03: * Patient received total of 30 units of insulin yesterday, of which 25 units were basal insulin * Fasting BSG 125 mg/dL - only day 2 of starting basal insulin, not quite at steady state with dosing * Patient NPO this morning, confirmed with RN he will be NPO rest of the day. Will provide a reduced dose of basal insulin with dinner 04/01: * Mr Hill is a 72 y/o M with a PMH of T2DM who presents with severe pancreatitis. He was initiated on an insulin infusion. * This morning BSGs are stable, within goal range. Insulin infusion reduced to 1 unit/hr. * Patient transitioned from NPO to clear liquid diet at lunch. * Will transition to SQ insulin. Will start with Lantus 25 units (~ 1 unit/hr - also is slightly less than full weight-based stress of 2). Titrate tomorrow based upon BSGs and overnight requirements. * Novolog weight-based stress of 2-3. PLAN FOR INPATIENT GLYCEMIC CONTROL: * Hold outpatient oral diabetes medications * Basal insulin * Lantus 15 units SQ daily * Bolus insulin * NovoLog per scale ACHS or Q6hrs while NPO * Goal Range: Low 110 mg/dL - High 140 mg/dL * Correction Factor: 15 mg/dL/unit * Nutritional / Prandial insulin per carb ratio of 1 unit per 5 grams CHO consumed
--- NOTE | 2023-04-12 18:16 | Hospitalist Progress Note ---
Date of Service April 12, 2023 Assessment & Plan (1) Acute pancreatitis: Plan: Peak lipase 2410. Lipase has normalized. Course complicated by ileus, sepsis, choledocholithiasis, and needing ICU level of care early on in admission. Acute pancreatitis due to gallstones given the choledocholithiasis as confirmed on ERCP. Also with 2 new splenic infarcts on repeat CT abd/pel likely related to pancreatitis Ileus resolving, moving bowels Pancreatitis resolved. Abd pain resolved, Tolerating low fat diet Completed course of antibiotics through IV and then augmentin 875mg PO BID for total 10 days plan for outpt ERCP and removal of stent in 3 months with GI plan for outpt Gen Surg elective cholecystectomy (2) Swelling of right upper extremity: Plan: obtain upper ext venous duplex - r/o DVT, r/o superficial phlebitis elevate arm on pillows Doppler shows cephalic vein thrombus, no DVT continue warm compresses (3) Splenic infarct: Plan: 2 infarcts seen on repeat CT a/p likely due to #2 this should not require anticoagulation discussed with Surgery who agrees 2/2 pancreatitis (4) Abdominal pain: Plan: Resolved s/p ERCP and retrieval of CBD stones as well as resolution of acute pancreatitis. Ileus also likely contributed to pain. Splenic infarcts seen on CT may have contributed to pain Fortunately his abd pain is resolved. LFTs have improved over the last few days -only AST minimally elevated Procal has trended down nicely from 25 to 5 to <1 (5) Choledocholithiasis: Plan: s/p ERCP 04/05/23 with 2 stones removed and stent placed. Appreciate [facility] GI consult and assistance. Blood cx's from admission negative. LFTs have improved nicely during the hospital stay. completed course of augmentin needs CBD stent removal in 3 mo with GI (6) Sepsis: Plan: suspected can't fully rule out a partially treated cholecystitis but unlikely as multiple imaging studies have not shown acute cholecystitis findings no purulent bile on ERCP thus no overt cholangitis (but certainly his clinical course may have been c/w such) Resolved, completed abx course (7) Ileus: Plan: 2nd to acute pancreatitis. Now resolved CT a/p shows the dilated loops of bowel are improved from last study the previous week. Again encouraged him to get OOB to chair and more activity in general. Keep electrolytes wnl. Continue Miralax bid as per GI (8) Acute metabolic encephalopathy: Plan: IMPROVED but still intermittently confused. Recall of events is very poor. He is oriented to person and place, town Insight and Motivation poor. Altered MS 2nd to severe pancreatitis with choledocholithiasis and sepsis. Supportive care. Avoid sedatives/benzos. Melatonin 3mg HS to reinforce sleep/wake cycle. (9) High anion gap metabolic acidosis: Plan: Present on admission. 2nd to DKA & lactic acidosis. Resolved. (10) Type 2 diabetes mellitus: Plan: Hemoglobin A1C 7.6% this admission. Resolved DKA (had been on insulin infusion early in stay). Metformin is on hold. Cont bolus insulin therapy. BSGs remain high - pharmacy to adjust insulins. (11) GUILLERMINA (acute kidney injury): Plan: resolved - peak Cr had been 2.3, trended to <1 Creatinine has been stable over the last several days (12) Acute respiratory failure with hypoxia: Plan: 2nd to acidosis at time of admission. required non-rebreather by report at time of ER presentation. resolved. He had been 10+ liters positive for the admission and was showing signs of 3rd spacing on exam and CT. CXR obtained 04/05 without edema or large effusions but [id number] stopped IV fluids and provided gentle diuresis for several days. Continues to diurese, weaning off O2, now on ly +5L for total stay -continue IV lasix daily until discharge follow I/Os, daily weights No large effusions on CTA,No PEs, No pulm edema, No pneumonia. Mild O2 requirement likely atelectasis from poor inspiratory effort in setting of being bedbound for so long (13) Malignant melanoma: Plan: back, s/p removal just prior to admission wounds continues to look with intact sutures He had procedure at [facility] and they reported these are dissolvable sutures (14) Esophageal dysphagia: Plan: cont PPI (15) HTN (hypertension): Plan: Bps satisfactory JOSÉ MIGUEL inhibitor remains on hold (16) History of CVA (cerebrovascular accident): Plan: continue DAPT (17) Hypothyroidism: Plan: Continue levothyroxine. TSH 0.192 - will not adjust at this time. Simply repeat as outpatient. (18) DKA (diabetic ketoacidosis): Plan: present on admission - resolved (19) Depression: Plan: long-standing per daughter increased to 40mg prozac daily consider adding another agent such as wellbutrin or other in the next week or two family counseled that prozac increase will take several weeks to take effect (20) Hypocalcemia: Plan: Total calcium level 7.6 corrected for low albumin the calcium level is wnl low calcium is due at least in part to vit D def s/p calcium gluconate several times + rocaltrol while here replace low vit D (21) Vitamin D deficiency: Plan: 25-OH vit D level = 11.9 provided ergocalciferol 50,000 units x 1 on 04/07/23 then repeat weekly for 7 more weeks also remains on calcitriol 0.25mcg daily. trend calcium levels Plan VTE Prophylaxis - SC lovenox cont pulmonary toilet with flutter valve and incentive spirometry cont PT, OT rehab planned and awaiting insurance auth Admission and Anticipated Discharge Date Admission Date: March 31, 2023 Subjective Pt denies abd pain. Moved his bowels today. Has no other complaints. Physical Exam Constitutional: WD/WN, vitals as above Respiratory: normal respiratory effort, lungs clear to auscultation Cardiovascular: RRR, no murmur, no edema Gastrointestinal (Abdomen): normal bowel sounds, soft, nontender, no hepatosplenomegaly Results & Data Results & Data Vital Signs (Past 12 Hours) Vital Signs Temp Pulse Resp BP Pulse Ox O2 Del Method O2 Flow Rate 04/12/23 14:42 36.6 C 70 17 117/73 95 Nasal Cannula 2 04/12/23 08:30 Nasal Cannula 1 04/12/23 07:45 36.8 C 65 16 115/71 96 Nasal Cannula 1.5 Laboratory Results CBC, CMP, Magnesium reviewed PG Care Time/CCT Total # of Minutes Spent Total Time Spent with Patient: Total time spent is greater than 50% in coordination of care (as documented) at patient's floor/unit and/or counseling patient: Coding Level of Care Code 72234 SUB INP/OBS CARE 2/35MIN Diagnoses Acute pancreatitis K85.90 Acute pancreatitis complication: unspecified Pancreatitis type: unspecified pancreatitis type Swelling of right upper extremity M79.89 Splenic infarct D73.5 Abdominal pain R10.9 Choledocholithiasis K80.50 Sepsis A41.9 Ileus K56.7 Acute metabolic encephalopathy G93.41 High anion gap metabolic acidosis E87.29 Type 2 diabetes mellitus E11.9 GUILLERMINA (acute kidney injury) N17.9 Acute respiratory failure with hypoxia J96.01 Malignant melanoma C43.9 Esophageal dysphagia R13.19 HTN (hypertension) I10 History of CVA (cerebrovascular accident) Z86.73 Hypothyroidism E03.9 DKA (diabetic ketoacidosis) E10.11 Diabetes mellitus complication detail: with coma Diabetes mellitus type: type 1 Depression F32.A Hypocalcemia E83.51 Vitamin D deficiency E55.9 (1) Acute pancreatitis Acute pancreatitis complication: unspecified Pancreatitis type: unspecified pancreatitis type Qualified Code(s): K85.90 - Acute pancreatitis without necrosis or infection, unspecified (18) DKA (diabetic ketoacidosis) Diabetes mellitus complication detail: with coma Diabetes mellitus type: type 1 Qualified Code(s): E10.11 - Type 1 diabetes mellitus with ketoacidosis with coma
[2023-04-12] MEDS: MELATONIN 3 MG TAB PO SCH (21:37)
[2023-04-13] MEDS: LEVOTHYROXINE SODIUM 88 MCG TABLET PO SCH (06:37)
[2023-04-13] MEDS: ENOXAPARIN INJ 40 MG/0.4 ML SYR SQ SCH (08:32)
[2023-04-13] MEDS: POLYETHYLENE (MIRALAX) 17 GM PACK PO SCH ×2 (08:33→20:42)
[2023-04-13] MEDS: ASPIRIN 81 MG ECTAB PO SCH (08:33)
[2023-04-13] MEDS: CLOPIDOGREL BISULFATE 75 MG TAB PO SCH (08:33)
[2023-04-13] MEDS: FLUoxetine HCL 20 MG CAP PO SCH (08:34)
[2023-04-13] MEDS: FUROSEMIDE INJ 20 MG/2 ML VIAL IV SCH (08:34)
[2023-04-13] MEDS: PANTOprazole 40 MG TAB PO SCH (08:34)
[2023-04-13] MEDS: TAMSULOSIN HCL 0.4 MG CAP PO SCH (08:34)
[2023-04-13] MEDS: CALCITRIOL 0.25 MCG CAPSULE PO SCH (08:35)
[2023-04-13] MEDS: MAGNESIUM OXIDE 400 MG TAB PO SCH ×2 (08:35→20:46)
[2023-04-13] MEDS: LANTUS PER UNIT CHARGE SC SCH (08:47)
[2023-04-13] MEDS: POTASSIUM CHLORIDE CRTAB 20 MEQ TABCR PO SCH (08:47)
[2023-04-13] MEDS: INSULIN ASPART PER UNIT CHARGE SC SCH ×4 (08:48→20:46)
[2023-04-13 09:08] LABS: Albumin Globulin Ratio 0.9 (0.9-2); Albumin Level 2.7 gm/dl (3.4-5.0); BUN Creatinine Ratio 19.5 (10-20); Bilirubin,Total 0.5 mg/dl (0.2-1.0); Calcium 8.2 mg/dl (8.6-10.3); Est GFR (African American) 105.1 ml/min; Est GFR (Non-African American) 90.7 ml/min; Magnesium 1.6 mg/dl (1.7-2.4); Potassium 4.3 mmol/L (3.5-5.1); Total Protein 5.7 gm/dl (6.0-8.3)
[2023-04-13] MEDS: MAGNESIUM SULFATE / D5W 1 GM/100 ML BAG IV SCH ×2 (11:16→13:07)
--- NOTE | 2023-04-13 13:21 | Hospitalist Progress Note ---
Date of Service April 13, 2023 Assessment & Plan (1) Acute pancreatitis: Plan: Peak lipase 2410. Lipase has normalized. Course complicated by ileus, sepsis, choledocholithiasis, and needing ICU level of care early on in admission. Acute pancreatitis due to gallstones given the choledocholithiasis as confirmed on ERCP. Also with 2 new splenic infarcts on repeat CT abd/pel likely related to pancreatitis Ileus resolved, moving bowels Pancreatitis resolved. Abd pain resolved, Tolerating low fat diet Completed course of antibiotics through IV and then augmentin 875mg PO BID for total 10 days plan for outpt ERCP and removal of stent in 3 months with GI plan for outpt Gen Surg elective cholecystectomy (2) Swelling of right upper extremity: Plan: obtain upper ext venous duplex - r/o DVT, r/o superficial phlebitis elevate arm on pillows Doppler shows cephalic vein thrombus, no DVT continue warm compresses (3) Splenic infarct: Plan: 2 infarcts seen on repeat CT a/p likely due to #2 this should not require anticoagulation discussed with Surgery who agrees 2/2 pancreatitis (4) Abdominal pain: Plan: Resolved s/p ERCP and retrieval of CBD stones as well as resolution of acute pancreatitis. Ileus also likely contributed to pain. Splenic infarcts seen on CT may have contributed to pain Fortunately his abd pain is resolved. LFTs have improved over the last few days - AST/ALT remain minimally elevated Procal has trended down nicely from 25 to 5 to <1 (5) Choledocholithiasis: Plan: s/p ERCP 04/05/23 with 2 stones removed and stent placed. Appreciate [facility] GI consult and assistance. Blood cx's from admission negative. LFTs have improved nicely during the hospital stay. completed course of augmentin needs CBD stent removal in 3 mo with GI (6) Sepsis: Plan: suspected can't fully rule out a partially treated cholecystitis but unlikely as multiple imaging studies have not shown acute cholecystitis findings no purulent bile on ERCP thus no overt cholangitis (but certainly his clinical course may have been c/w such) Resolved, completed abx course (7) Ileus: Plan: 2nd to acute pancreatitis. Now resolved CT a/p shows the dilated loops of bowel are improved from last study the previous week. Again encouraged him to get OOB to chair and more activity in general. Keep electrolytes wnl. Continue Miralax bid as per GI (8) Acute metabolic encephalopathy: Plan: IMPROVED but still intermittently confused. Recall of events is very poor. He is oriented to person and place, town Insight and Motivation poor. Altered MS 2nd to severe pancreatitis with choledocholithiasis and sepsis. Supportive care. Avoid sedatives/benzos. Melatonin 3mg HS to reinforce sleep/wake cycle. May have some underlying cognitive impairment (9) High anion gap metabolic acidosis: Plan: Present on admission. 2nd to DKA & lactic acidosis. Resolved. (10) Type 2 diabetes mellitus: Plan: Hemoglobin A1C 7.6% this admission. Resolved DKA (had been on insulin infusion early in stay). Metformin is on hold. Cont bolus insulin therapy. BSGs remain high - pharmacy to adjust insulins. (11) GUILLERMINA (acute kidney injury): Plan: resolved - peak Cr had been 2.3, trended to <1 Creatinine has been stable and normal (12) Acute respiratory failure with hypoxia: Plan: 2nd to acidosis at time of admission. required non-rebreather by report at time of ER presentation. Still on 1LNC at rest--> will ask RN to wean off but may need 2 step prior to discharge He had been 10+ liters positive for the admission and was showing signs of 3rd spacing on exam and CT. CXR obtained 04/05 without edema or large effusions but [id number] stopped IV fluids and provided gentle diuresis for several days. Continues to diurese, weaning off O2, now only +4.8L for total stay -continue IV lasix daily until discharge follow I/Os, daily weights replace magnesium today No large effusions on CTA,No PEs, No pulm edema, No pneumonia. Mild O2 requirement likely atelectasis from poor inspiratory effort in setting of being bedbound for so long-encourage ambulation (13) Malignant melanoma: Plan: back, s/p removal just prior to admission wounds continues to look with intact sutures He had procedure at [facility] and they reported these are dissolvable sutures (14) Esophageal dysphagia: Plan: cont PPI (15) HTN (hypertension): Plan: Bps satisfactory JOSÉ MIGUEL inhibitor remains on hold but can be restarted on discharge (16) History of CVA (cerebrovascular accident): Plan: continue DAPT (17) Hypothyroidism: Plan: Continue levothyroxine. TSH 0.192 - will not adjust at this time. Simply repeat as outpatient. (18) DKA (diabetic ketoacidosis): Plan: present on admission - resolved (19) Depression: Plan: long-standing per daughter increased to 40mg prozac daily consider adding another agent such as wellbutrin or other in the next week or two family counseled that prozac increase will take several weeks to take effect (20) Hypocalcemia: Plan: Total calcium level 7.6 corrected for low albumin the calcium level is wnl low calcium is due at least in part to vit D def s/p calcium gluconate several times + rocaltrol while here replace low vit D (21) Vitamin D deficiency: Plan: 25-OH vit D level = 11.9 provided ergocalciferol 50,000 units x 1 on 04/07/23 then repeat weekly for 7 more weeks also remains on calcitriol 0.25mcg daily. trend calcium levels Plan VTE Prophylaxis - SC lovenox cont pulmonary toilet with flutter valve and incentive spirometry Dispo-did peer to peer for approval for rehab with insurance today x 15 min and this was denied. Family has decided to bring him home with home health tomorrow May need home O2 Admission and Anticipated Discharge Date Admission Date: March 31, 2023 Subjective No complaints, just moved bowels, is eating. No abd pain Physical Exam Constitutional: WD/WN, vitals as above Respiratory: normal respiratory effort, lungs clear to auscultation Cardiovascular: RRR, no murmur, no edema Gastrointestinal (Abdomen): normal bowel sounds, soft, nontender, no hepatosplenomegaly Results & Data Results & Data Vital Signs (Past 12 Hours) Vital Signs Temp Pulse Resp BP Pulse Ox O2 Del Method O2 Flow Rate 04/13/23 07:39 36.7 C 72 16 131/75 94 Nasal Cannula 1 Laboratory Results CBC, CMP, magnesium level reviewed PG Care Time/CCT Total # of Minutes Spent Total Time Spent with Patient: Total time spent is greater than 50% in coordination of care (as documented) at patient's floor/unit and/or counseling patient: Coding Level of Care Code 36777 SUB INP/OBS CARE 2/35MIN Diagnoses Acute pancreatitis K85.90 Acute pancreatitis complication: unspecified Pancreatitis type: unspecified pancreatitis type Swelling of right upper extremity M79.89 Splenic infarct D73.5 Abdominal pain R10.9 Choledocholithiasis K80.50 Sepsis A41.9 Ileus K56.7 Acute metabolic encephalopathy G93.41 High anion gap metabolic acidosis E87.29 Type 2 diabetes mellitus E11.9 GUILLERMINA (acute kidney injury) N17.9 Acute respiratory failure with hypoxia J96.01 Malignant melanoma C43.9 Esophageal dysphagia R13.19 HTN (hypertension) I10 History of CVA (cerebrovascular accident) Z86.73 Hypothyroidism E03.9 DKA (diabetic ketoacidosis) E10.11 Diabetes mellitus complication detail: with coma Diabetes mellitus type: type 1 Depression F32.A Hypocalcemia E83.51 Vitamin D deficiency E55.9 (1) Acute pancreatitis Acute pancreatitis complication: unspecified Pancreatitis type: unspecified pancreatitis type Qualified Code(s): K85.90 - Acute pancreatitis without necrosis or infection, unspecified (18) DKA (diabetic ketoacidosis) Diabetes mellitus complication detail: with coma Diabetes mellitus type: type 1 Qualified Code(s): E10.11 - Type 1 diabetes mellitus with ketoacidosis with coma
[2023-04-13] MEDS: MELATONIN 3 MG TAB PO SCH (20:46)
[2023-04-14] MEDS: LEVOTHYROXINE SODIUM 88 MCG TABLET PO SCH (05:53)
[2023-04-14 08:07] LABS: Hematocrit (blood only) 36.8 % (42.0-52.0); Hemoglobin 12.1 g/dl (14.0-18.0); Red Blood Count 4.04 M/uL (4.70-6.10); White Blood Count 8.72 K/ul (4.8-10.8)
[2023-04-14 08:08] LABS: Basophils # (auto) 0.03 K/uL (0-0.2); Basophils % (auto) 0.3 %; Eosinophils # (auto) 0.04 K/uL (0-0.50); Eosinophils % (auto) 0.5 %; Immature Granulocytes # (auto) 0.08 K/uL (0.01-0.20); Immature Granulocytes % (auto) 0.9 %; Lymphocytes # (auto) 1.36 K/uL (1.2-3.4); Lymphocytes % (auto) 15.6 %; Mean Corpuscular Hgb Conc 32.9 g/dL (32.0-36.0); Mean Corpuscular Volume 91.1 fL (80.0-100.0); Mean Platelet Volume 9.7 fL (9.4-12.4); Monocytes # (auto) 0.63 K/uL (0.11-0.59); Monocytes % (auto) 7.2 %; Neutrophils # (auto) 6.58 K/uL (1.40-6.50); Neutrophils % (auto) 75.5 %; Platelet Count 307 K/uL (130-400); RDW Coefficient of Variation 13.8 % (11.5-14.5); RDW Standard Deviation 46.5 fL (36.4-46.3)
[2023-04-14 08:18] LABS: BUN Creatinine Ratio 19.1 (10-20); Calcium 8.4 mg/dl (8.6-10.3); Creatinine Clr Calc Pharmacy 84.8 ml/min; Est GFR (Non-African American) 85.4 ml/min; Magnesium 1.9 mg/dl (1.7-2.4); Potassium 4.1 mmol/L (3.5-5.1)
[2023-04-14] MEDS: INSULIN ASPART PER UNIT CHARGE SC SCH (08:42)
[2023-04-14] MEDS: ENOXAPARIN INJ 40 MG/0.4 ML SYR SQ SCH (08:56)
[2023-04-14] MEDS: FLUoxetine HCL 20 MG CAP PO SCH (08:56)
[2023-04-14] MEDS: TAMSULOSIN HCL 0.4 MG CAP PO SCH (08:56)
[2023-04-14] MEDS: POLYETHYLENE (MIRALAX) 17 GM PACK PO SCH (08:56)
[2023-04-14] MEDS: CLOPIDOGREL BISULFATE 75 MG TAB PO SCH (08:56)
[2023-04-14] MEDS: MAGNESIUM OXIDE 400 MG TAB PO SCH (08:56)
[2023-04-14] MEDS: PANTOprazole 40 MG TAB PO SCH (08:57)
[2023-04-14] MEDS: ASPIRIN 81 MG ECTAB PO SCH (08:57)
[2023-04-14] MEDS: CALCITRIOL 0.25 MCG CAPSULE PO SCH (08:57)
[2023-04-14] MEDS: LANTUS PER UNIT CHARGE SC SCH (09:00)
--- NOTE | 2023-04-14 11:00 | Discharge Summary ---
Discharge Summary Date of Service April 14, 2023 Notes For Next Care Provider Needs cholecystectomy and f/u with Surgery within 2 weeks. Needs repeat ERCP in 3 months for biliary stent removal. Increased Prozac-assess for improvement in mood. Required insulin while hospitalized but likely does not need at home now that no longer acutely ill--> glucometer given and needs close f/u to assess for need for second diabetes agent (obviously avoid meds that increase risk for pancreatitis) Medication Changes From Visit Added calcitriol daily Increased Prozac to 40mg daily Added Miralax daily Admission HPI Per Admitting Provider Payam Hill is a 72 year old male who presents to the ER with confusion, shortness of breath and generalized weakness. The patient is unable to give me any significant history, he tells me both he woke up feeling ok this morning but also he has been sick for 3-4 days but cannot elaborate on this. His cognition is usually normal per his daughter although noted poor historian on his past medical history problem list. His daughter at bedside reports seeing him yesterday and he was his normal self. Today when she went to check on him he was breathing fast, appeared general unwell, pale and confused. At the time he reported no pain but did say he was unable to eat or drink anything today. Therefore EMS were called. Current he denies any fever, chills, respiratory, gastrointestinal or urinary symptoms. On Monday he underwent melena removal on his back. On Monday he restarted on metformin as his daughter asked him whether he had been taking as his pill bottles were empty and he was unable to say who long he had been out for. Otherwise no recent changes to his medications. In the ER CT and labs are concerning for acute pancreatitis. The patient denies any abdominal pain, nausea, vomiting or change in bowels. However when I press on his abdomen he is significantly tender. Principal Dx & Hospital Course #1 = Principal Diagnosis (1) Acute pancreatitis: Peak lipase 2410. Lipase has normalized. Course complicated by ileus, sepsis, choledocholithiasis, and needing ICU level of care early on in admission. Acute pancreatitis due to gallstones given the choledocholithiasis as confirmed on ERCP. Also with 2 new splenic infarcts on repeat CT abd/pel likely related to pancreatitis Ileus resolved, moving bowels Pancreatitis resolved. Abd pain resolved, Tolerating low fat diet Completed course of antibiotics both IV and then augmentin 875mg PO BID for total 10 days plan for outpt ERCP and removal of stent in 3 months with GI plan for outpt Gen Surg elective cholecystectomy wthin 1 month (2) Swelling of right upper extremity: obtained upper ext venous duplex -Doppler shows cephalic vein thrombus, no DVT elevate arm on pillows continue warm compresses (3) Splenic infarct: 2 infarcts seen on repeat CT a/p likely due to pancreatitis this does not require anticoagulation discussed with Surgery who agrees 2/2 pancreatitis (4) Abdominal pain: Resolved s/p ERCP and retrieval of CBD stones as well as resolution of acute pancreatitis. Ileus also likely contributed to pain. Splenic infarcts seen on CT may have contributed to pain Fortunately his abd pain is resolved. LFTs have almost normalized Procal has trended down nicely from 25 to 5 to <1 (5) Choledocholithiasis: s/p ERCP 04/05/23 with 2 stones removed and stent placed. Appreciate [facility] GI consult and assistance. Blood cx's from admission negative. LFTs have improved nicely during the hospital stay. completed course of augmentin needs CBD stent removal in 3 mo with GI (6) Sepsis: suspected can't fully rule out a partially treated cholecystitis but unlikely as multiple imaging studies have not shown acute cholecystitis findings no purulent bile on ERCP thus no overt cholangitis (but certainly his clinical course may have been c/w such) Resolved, completed abx course (7) Ileus: 2nd to acute pancreatitis. Now resolved CT a/p shows the dilated loops of bowel are improved from last study the previous week. Again encouraged him to get OOB to chair and more activity in general. Keep electrolytes wnl. Continue Miralax daily (8) Acute metabolic encephalopathy: much improved, back to baseline (9) High anion gap metabolic acidosis: Present on admission. 2nd to DKA & lactic acidosis. Resolved. (10) Type 2 diabetes mellitus: Hemoglobin A1C 7.6% this admission. Resolved DKA (had been on insulin infusion early in stay). Metformin is on hold but will be restarted on discharge required insulin while here but because he is typically well controlled at home, no need for insulin on discharge. Suspect hyperglycemia on admission 2/2 acute illness/stress response. Will get him set up with a glucometer for home glucose monitoring and if consistently above 200, advised to f/u with PCP (11) GUILLERMINA (acute kidney injury): resolved - peak Cr had been 2.3, trended to <1 Creatinine has been stable and normal (12) Acute respiratory failure with hypoxia: 2nd to acidosis at time of admission. required non-rebreather by report at time of ER presentation. Now weaned off O2 t rest and with exertion Was given IV lasix for many days to diurese, also encouraged ambulation and likely some component of atelectasis (13) Malignant melanoma: back, s/p removal just prior to admission wounds continues to look with intact sutures He had procedure at [facility] and they reported these are dissolvable sutures He will have f/u with DERM as outpt (14) Esophageal dysphagia: cont PPI (15) HTN (hypertension): Bps satisfactory JOSÉ MIGUEL inhibitor remains on hold but can be restarted on discharge (16) History of CVA (cerebrovascular accident): continue DAPT (17) Hypothyroidism: Continue levothyroxine. TSH 0.192 - will not adjust at this time. Simply repeat as outpatient. (18) DKA (diabetic ketoacidosis): present on admission - resolved (19) Depression: long-standing per daughter increased to 40mg prozac daily consider adding another agent such as wellbutrin or other in the next week or two family counseled that prozac increase will take several weeks to take effect (20) Hypocalcemia: Total calcium level 7.6 corrected for low albumin the calcium level is wnl low calcium is due at least in part to vit D def s/p calcium gluconate several times + rocaltrol while here replace low vit D (21) Vitamin D deficiency: 25-OH vit D level = 11.9 provided ergocalciferol 50,000 units x 1 on 04/07/23 then repeat weekly for 7 more weeks also remains on calcitriol 0.25mcg daily. trend calcium levels Plan VTE Prophylaxis - SC lovenox Dispo-dc to home with home health. Discussed care with family at bedside Discharge Exam Constitutional WD/WN, vitals as above Respiratory normal respiratory effort, lungs clear to auscultation Cardiovascular RRR, no murmur, no edema Gastrointestinal (Abdomen) normal bowel sounds, soft, nontender, no hepatosplenomegaly Psychiatric Orientation: alert, oriented to person, oriented to place and cooperative Updated Medication List Medication Instructions Recorded Confirmed Type clopidogrel 75 mg tablet 75 mg PO QAM 08/17/20 03/31/23 History lisinopril 10 mg tablet 10 mg PO QAM 08/17/20 03/31/23 History metformin 500 mg tablet 1,000 mg PO BID 08/17/20 03/31/23 History pantoprazole 40 mg tablet,delayed 40 mg PO DAILY #30 tabs 07/05/22 03/31/23 Rx release aspirin 81 mg tablet,delayed 81 mg PO DAILY 03/31/23 03/31/23 History release levothyroxine 88 mcg tablet 88 mcg PO DAILY 03/31/23 03/31/23 History (Synthroid) magnesium oxide 400 mg PO BID 03/31/23 03/31/23 History simvastatin 40 mg tablet 40 mg PO DAILY 03/31/23 03/31/23 History tamsulosin 0.4 mg capsule 0.4 mg PO DAILY 03/31/23 03/31/23 History calcitriol 0.25 mcg capsule 0.25 mcg PO QAM #30 caps 04/14/23 Rx fluoxetine 40 mg capsule 40 mg PO DAILY #30 caps 04/14/23 Rx melatonin 3 mg tablet 3 mg PO HS #30 tabs 04/14/23 Rx polyethylene glycol 3350 17 gram 17 g PO DAILY PRN constipation #30 04/14/23 Rx oral powder packet (Miralax) ea Hospital Stay Data Consultations 03/31/23 19:03 ED Decision to Admit Stat 03/31/23 20:31 Consult Bartender Manager Routine 04/01/23 00:43 Consult Gastroenterology Routine 04/03/23 09:24 Consult General Surgery Routine Procedures Performed Operation Date: 04/04/23 07:00 Actual Procedures p Endoscopic Retrograde Cholangiopancreatotomy(Not Applicable) - Ollie Perez MD Diagnostic Imagining Performed 03/31/23 17:45 CT abd pelvis wo con Stat CT head/brain wo con Stat 03/31/23 19:50 US liver Stat US portal veins doppler [US duplex portal hepatic veins] Stat 04/02/23 09:44 CT Abd and Pelvis [CT abd pelvis IV con only] Urgent 04/04/23 [place] ERCP biliary ductal Routine 04/09/23 18:03 CT abd pelvis IV con only Urgent CT angio chest PE protocol Urgent 04/10/23 17:46 US venous doppler UE RT Urgent Pending Results Patient Have Any Pending Studies at Discharge: No Discharge Instructions Given to Patient (Per Discharging Provider) You were admitted with sepsis from pancreatitis and gallstones. You had a stent placed in your bile duct which relieved your symptoms. You will need to have your gallbladder removed in the next month or so and then have the stent removed in 3 months with GI. You completed a 10 day course of antibiotics and do not need any more at home. You were given Miralax to help with constipation which is now resolved. You were also found to have Vitamin D deficiency and low calcium and were s tarted on a vitamin D supplement called calcitriol. Total Time Total Time Spent Total Time Spent (In Minutes): 40 min Coding Level of Care Code 54723 INP/OBS DISCH >30 MIN Diagnoses Acute pancreatitis K85.90 Acute pancreatitis complication: unspecified Pancreatitis type: unspecified pancreatitis type Swelling of right upper extremity M79.89 Splenic infarct D73.5 Abdominal pain R10.9 Choledocholithiasis K80.50 Sepsis A41.9 Ileus K56.7 Acute metabolic encephalopathy G93.41 High anion gap metabolic acidosis E87.29 Type 2 diabetes mellitus E11.9 GUILLERMINA (acute kidney injury) N17.9 Acute respiratory failure with hypoxia J96.01 Malignant melanoma C43.9 Esophageal dysphagia R13.19 HTN (hypertension) I10 History of CVA (cerebrovascular accident) Z86.73 Hypothyroidism E03.9 DKA (diabetic ketoacidosis) E10.11 Diabetes mellitus complication detail: with coma Diabetes mellitus type: type 1 Depression F32.A Hypocalcemia E83.51 Vitamin D deficiency E55.9
== END 2023-04-14 12:21 | disposition home health service (06) | DRG 871 ==
LOC: ED 16:34 → SUATTDRO 19:44 → 1E 19:44 → 2S 04-01 22:36 → 3W 04-08 15:16

== ENCOUNTER 2023-05-20 18:49 | Inpatient (IN) ==
[2023-05-20] MEDS ORDERED: ONDANSETRON INJ 2 MG/ML 2 ML VIAL IV STA (19:06)
[2023-05-20] MEDS ORDERED: SODIUM CHLORIDE 0.9% 1000ML 500 ML IV ONE (19:06)
[2023-05-20] MEDS ORDERED: fentaNYL citrate PF 100 MCG/2 ML VIAL IV PRN (19:06)
[2023-05-20] MEDS ORDERED: ALBUT/IPRATROP 3MG/0.5MG NEB 3 ML VIAL NEB STA (19:12)
--- NOTE | 2023-05-20 19:12 | Emergency Department Note ---
Impression & Plan Acute postoperative abdominal pain, Abscess, intra-abdominal, postoperative, Acute pancreatitis, Elevated troponin ED Provider Note INFORMANT: Patient and family ED PROVIDER(S): Robert Ramirez MD CHIEF COMPLAINT: Shortness of breath and abdominal pain PLAN: Disposition: Admitted Condition: Guarded Outpatient prescription management: none Referral: None MEDICAL DECISION MAKING: Patient presented by ambulance because of acute abdominal pain and feeling short of breath. He appeared to be splinting due to significant abdominal pain. Blood work was obtained. I-STAT performed. Patient had a chest x-ray which revealed no acute disease. He was transitioned from CPAP by EMS to high flow nasal cannula oxygen here. Patient was given Zofran and IV fentanyl. He did fe el better with this. Patient was taken emergently to CT imaging. DuoNeb was performed. He was feeling better with this and breathing easier. CT was concerning for developing abscess versus possible biloma. I did consult with general surgery and discussed the case with Bhavesh Acosta PA-C who was working with Dr. Capps. Surgery did evaluate the patient in the ED. I did provide a dose of IV Zosyn as well as IV fluids. Surgery agreed. He asked for medicine admission. Consultation was made with Dr. Devan Stewart of the [facility] service. Patient was evaluated in the ER for further management. Discussed with sales engineer account manager After review of the information above and other included data, I feel the patient requires admission. Triage Nursing notes reviewed and agree them. Vital Signs: reviewed and remarkable for hypoxia Prior /Outside records reviewed: Prior surgical notes reviewed. Differential diagnosis: Complication of cholecystectomy, perforation, obstruction, mesenteric ischemia, aortic pathology, inflammatory bowel disease, renal colic, PUD, pancreatitis, biliary pathology, hernia, volvulus, constipation,appendicitis, testicular torsion, infections, diverticulitis, UTI, as well as other pathologies. Diagnostics, as interpreted by me: ECG: Twelve-lead ECG reveals a normal sinus rhythm at 100 bpm. Left anterior fascicular block. LVH. Nonspecific ST abnormality. No ST elevation or depression. Cardiac Monitoring: Cardiac monitoring ordered by me: The patient was placed on continuous cardiac monitoring and observed. It revealed a sinus tachycardic rhythm at 106 beats per minute without ectopy or evidence of dysrhythmia. Medical decision rules: none Imaging studies: CT imaging and chest x-ray as noted above. HPI: The patient is a 72 year old male who presents to the Emergency Room with complaints of abdominal pain and shortness of breath. This started over the last day or 2 and is worsening. The patient also notes the following associated symptoms, difficulty taking a deep breath secondary to abdominal pain, bloating. The patient has tried taking 2 oxycodone this afternoon for relieving factors. Current pain is rated as 8/10. Patient just had a cholecystectomy done 4 days ago. Pt denies LOC, headache, fevers, chills, diaphoresis, visual changes, neck pain, chest pain, breathing difficulties, nausea, vomiting, abdominal pain, back pain, melena, hematochezia, urinary symptoms, numbness, weakness, lymphadenopathy, rash, or other complaints. PAST MEDICAL HISTORY: See Below, gallstone pancreatitis PAST SURGICAL HISTORY: See Below, ERCP, cholecystectomy SOCIAL HISTORY: See Below, former smoker HOME MEDICATIONS: See Below ALLERGIES: See Below VITALS: See Below PHYSICAL EXAMINATION: GENERAL: Awake, alert, uncomfortable-appearing, in moderate distress HENT: Normocephalic, atraumatic. Oropharynx unremarkable. EYES: Normal conjunctiva. Sclera non-icteric. NECK: Inspection normal. Non-tender. Supple. No nuchal rigidity. FROM. No masses. RESPIRATORY: Clear to auscultation. No wheezes. No rales. Normal respiratory effort. CARDIAC: Tachycardic rate. Normal rhythm. No murmurs. No rubs. Extremities warm and well perfused. Pulses equal. No JVD. GI: Soft, non-distended. Generalized tenderness to palpation worse in the right upper. Patient with rebound and guarding. RECTAL: Deferred. MUSCULOSKELETAL: Atraumatic. Chest examination reveals no tenderness. The back is symmetrical on inspection without obvious abnormality. There is no CVA tend erness to palpation. No joint edema. LOWER EXTREMITIES: Calves are equal size bilaterally and non-tender. No edema. No discoloration. NEURO: Normal sensorium. No sensory or motor deficits noted. SKIN: No rash or jaundice noted. CRITICAL CARE: I have personally spent greater than 50 minutes of critical care time in the direct management of this patient. This includes bedside care, interpretation of diagnostic studies, and testing, discussion with consultants, patient, and family members, and other required patient management activities. These minutes are in excess of all separately billable procedures. 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 Hood Borderline hyperlipidemia Choledocholithiasis Depression Diabetes mellitus, type 2 Enlarged prostate History of COVID-19 11/16- congestion > resolved HTN (hypertension) Hx of melanoma of skin Hypothyroidism Poor historian phone interview done by pts daughter TIA (transient ischemic attack) x2, Most recent 8+ years ago- residual problems with taking longer to process info Surgical History Family history of reaction to anesthesia daughter > post-op nausea H/O umbilical hernia repair (05/16/23) p Laparoscopic Cholecystectomy(Not Applicable) - Deepak Pickering DO s and Open Umbilical Hernia Repair(Not Applicable) - Deepak Pickering DO History of ERCP + stent (plans for removal after lap [place]) History of esophagogastroduodenoscopy (EGD) Hx laparoscopic cholecystectomy (05/16/23) p Laparoscopic Cholecystectomy(Not Applicable) - Deepak Pickering DO s and Open Umbilical Hernia Repair(Not Applicable) - Deepak Pickering DO S/P colonoscopy S/P hernia repair inguinal Social History Smoking Status: Former smoker Tobacco Type: Smokeless Tobacco (Dip or Chew) Cigarettes Per Day: quit smoking 40+ years; Second Hand Exposure: No; Do You Dip or Chew Tobacco: No; Tobacco Cessation Education Requested by Patient: No Hx Alcohol Use: No Hx Substance Use: No Preferred Language: Czech Communication Ability: Effective Visual Impairment: No Limitations Hearing Ability: Normal Bezel Cutter Required: No Beliefs That Will Affect Care: None marital status: Current Living Situation: Alone Current Living Situation Comment: dtr goes to [facility] - he lives by himself current occupational status: retired Other Information That Helps Us Care for You: No Feels Safe at Home: Yes Safety Concerns: Feels Safe At This Time Assistive Devices: Glasses Allergies Allergies Allergy/AdvReac Type Severity Reaction Status Date / Time No Known Allergies Allergy Verified 05/16/23 05:35 Home Meds Home Medications Medication Instructions Recorded Confirmed clopidogrel 75 mg tablet 75 mg PO QAM 08/17/20 05/20/23 lisinopril 10 mg tablet 0 mg PO QAM 08/17/20 05/20/23 metformin 500 mg tablet 1,000 mg PO BID 08/17/20 05/20/23 aspirin 81 mg tablet,delayed 81 mg PO DAILY 03/31/23 05/20/23 release levothyroxine 88 mcg tablet 88 mcg PO QAM 03/31/23 05/20/23 (Synthroid) magnesium oxide 400 mg PO BID 03/31/23 05/20/23 simvastatin 40 mg tablet 40 mg PO DAILY 03/31/23 05/20/23 tamsulosin 0.4 mg capsule 0.4 mg PO DAILY 03/31/23 05/20/23 fluoxetine 40 mg capsule 40 mg PO HS 05/12/23 05/20/23 multivit with 1 tab PO DAILY 05/12/23 05/20/23 [id number] 18 mg iron-800 mcg-150 mg tablet (Vitamin D3 Complete) pantoprazole 40 mg tablet,delayed 40 mg PO QAM 05/12/23 05/20/23 release nitroglycerin 0.3 mg sublingual 0.3 mg sublingual DAILY 05/20/23 05/20/23 tablet polyethylene glycol 3350 17 gram 0 g PO DAILY PRN constipation 05/20/23 05/20/23 oral powder packet (Miralax) Previous Rx's Medication Instructions Recorded blood sugar diagnostic (OneTouch #25 ea 04/14/23 Verio test strips) calcitriol 0.25 mcg capsule 0.25 mcg PO QAM #30 caps 04/14/23 lancets 33 gauge (OneTouch Delica #100 ea 04/14/23 Lancets) oxycodone 5 mg tablet 5 - 10 mg PO .[id number] PRN pain, 05/16/23 for initial therapy, max 6 tabs per day #15 tabs Results & Data (ED) Vital Signs Vital Signs - 24 hr 05/20/23 19:00 05/20/23 19:00 05/20/23 19:00 Temperature 37.1 C Temperature Source Oral Pulse Rate 100 H Pulse Rate from SpO2 Sensor Respiratory Rate 31 H Respiratory Effort / Characteristics Non-Labored Non-Labored Respiratory Depth Shallow Shallow Respiratory Pattern Regular Agonal Blood Pressure 133/89 Blood Pressure Mean 103 Pulse Oximetry 83 L Oxygen Delivery Method Room Air Non-rebreather Non-rebreather Oxygen Flow Rate 15 15 Fraction of Inspired Oxygen Sepsis Recent Fever Within 48 Hours No Sepsis New/Unexplained Change in Mental Status No Sepsis Action Taken by Nursing No Action Required 05/20/23 19:05 05/20/23 18:57 05/20/23 19:00 Temperature Temperature Source Pulse Rate 104 H Pulse Rate from SpO2 Sensor 97 H Respiratory Rate 34 H 39 H 32 H Respiratory Effort / Characteristics Respiratory Depth Respiratory Pattern Blood Pressure 133/91 116/84 Blood Pressure Mean 104 93 Pulse Oximetry 88 L 92 94 Oxygen Delivery Method High Flow Nasal Cannula Non-rebreather Non-rebreather Oxygen Flow Rate 40 15 15 Fraction of Inspired Oxygen 100 Sepsis Recent Fever Within 48 Hours Sepsis New/Unexplained Change in Mental Status Sepsis Action Taken by Nursing 05/20/23 19:29 05/20/23 19:30 05/20/23 20:00 Temperature Temperature Source Pulse Rate 93 H 93 H 91 H Pulse Rate from SpO2 Sensor Respiratory Rate 31 H 31 H 30 H Respiratory Effort / Characteristics Respiratory Depth Respiratory Pattern Blood Pressure 142/87 H 134/90 122/87 Blood Pressure Mean 118 110 99 Pulse Oximetry 99 98 95 Oxygen Delivery Method Non-rebreather Non-rebreather Non-rebreather Oxygen Flow Rate 15 15 15 Fraction of Inspired Oxygen Sepsis Recent Fever Within 48 Hours Sepsis New/Unexplained Change in Mental Status Sepsis Action Taken by Nursing 05/20/23 20:30 05/20/23 21:00 05/20/23 19:05 Temperature Temperature Source Pulse Rate 90 90 103 H Pulse Rate from SpO2 Sensor Respiratory Rate 29 H 27 H Respiratory Effort / Characteristics Respiratory Depth Respiratory Pattern Blood Pressure 121/83 121/83 Blood Pressure Mean 94 96 Pulse Oximetry 98 98 Oxygen Delivery Method Non-rebreather Non-rebreather Oxygen Flow Rate 15 15 Fraction of Inspired Oxygen Sepsis Recent Fever Within 48 Hours Sepsis New/Unexplained Change in Mental Status Sepsis Action Taken by Nursing 05/20/23 21:30 05/20/23 22:01 05/20/23 22:31 Temperature Temperature Source Pulse Rate 91 H 92 H 88 Pulse Rate from SpO2 Sensor Respiratory Rate 29 H 29 H 27 H Respiratory Effort / Characteristics Respiratory Depth Respiratory Pattern Blood Pressure 120/84 153/117 H 125/76 Blood Pressure Mean 101 123 95 Pulse Oximetry 96 97 93 Oxygen Delivery Method Non-rebreather Non-rebreather Non-rebreather Oxygen Flow Rate 15 15 15 Fraction of Inspired Oxygen Sepsis Recent Fever Within 48 Hours Sepsis New/Unexplained Change in Mental Status Sepsis Action Taken by Nursing Laboratory Data 05/20/23 19:04 05/20/23 19:04 Lab Results 05/20/23 05/20/23 05/20/23 Range/Units 19:04 19:04 19:08 WBC 10.47 (4.8-10.8) K/ul RBC 4.14 L (4.70-6.10) M/uL Hgb 12.6 L (14.0-18.0) g/dl POC Hgb 12.9 L (14.0-18.0) g/dl Hct 37.0 L (42.0-52.0) % POC Hct 38 L (42-52) % MCV 89.4 (80.0-100.0) fL MCH 30.4 (25.0-34.0) pg MCHC 34.1 (32.0-36.0) g/dL RDW Std Deviation 52.2 H (36.4-46.3) fL RDW Coeff of Dinorah 15.9 H (11.5-14.5) % Plt Count 199 (130-400) K/uL MPV 10.1 (9.4-12.4) fL Immature Gran % (Auto) 0.4 % Neut % (Auto) 90.0 % Lymph % (Auto) 3.4 % Teller % (Auto) 5.9 % Eos % (Auto) 0.0 % Baso % (Auto) 0.3 % Neut # (Auto) 9.42 H (1.40-6.50) K/uL Lymph # (Auto) 0.36 L (1.2-3.4) K/uL Teller # (Auto) 0.62 H (0.11-0.59) K/uL Eos # (Auto) 0.00 (0-0.50) K/uL Baso # (Auto) 0.03 (0-0.2) K/uL Immature Gran # (Auto) 0.04 (0.01-0.20) K/uL POC Sodium 136 (135-144) mmol/L Sodium 135 L (136-145) mmol/L POC Potassium 3.7 (3.3-5.0) mmol/L Potassium 3.7 (3.5-5.1) mmol/L POC Chloride 101 (101-112) mmol/L Chloride 101 (98-107) mmol/L Carbon Dioxide 21 (21-32) mmol/L POC Total CO2 19 L (24-31) mmol/L Anion Gap 13 H (3-11) POC Anion Gap 21.0 (16-25) mmol/L POC BUN 21 H (7-18) mg/dl BUN 23 (6-23) mg/dl Creatinine 0.75 (0.6-1.4) mg/dl POC Creatinine 0.6 (0.6-1.3) mg/dl Est Cr Clr Drug Dosing Not Reportable Est GFR ( Amer) 106.2 ml/min Est GFR (Non-Af Amer) 91.6 ml/min BUN/Creatinine Ratio 30.7 H (10-20) Glucose 244 H (70-99(Fasting)) mg/dl POC Glucose (other) 246 H (70-99) mg/dl Calcium 8.7 (8.6-10.3) mg/dl POC Ioniz Calcium Misha 1.00 L (1.12-1.32) mmol/l Total Bilirubin 1.6 H (0.2-1.0) mg/dl AST 14 (13-39) U/L ALT 23 (7-52) U/L Alkaline Phosphatase 71 (34-104) U/L Troponin I High Sens 38.4 H (0-20) pg/ml Total Protein 6.6 (6.0-8.3) gm/dl Albumin 3.5 (3.4-5.0) gm/dl Globulin 3.1 (2.5-4.0) gm/dl Albumin/Globulin Ratio 1.1 (0.9-2) Lipase 3 L (11-82) U/L Urine Color Urine Appearance (Clear) Urine pH (4.5-7.5) Ur Specific Bypro (1.000-1.030) Urine Protein (Negative) Urine Glucose (UA) (Negative) Urine Ketones (Negative) Urine Blood (Negative) Urine Nitrite (Negative) Urine Bilirubin (Negative) Urine Urobilinogen (Negative) Ur Leukocyte Esterase (Negative) Urine WBC (Auto) (0-5) /hpf Urine RBC (Auto) (0-4) /hpf U Hyaline Cast (Auto) (0-5) /lpf U Epithel Cells (Auto) (0-5) /lpf Urine Bacteria (Auto) (Negative) Urine Crystals (None Prsent) Uric Acid Crystals (None Prsent) SARS-CoV-2, RNA, NAAT (NEGATIVE) 05/20/23 05/20/23 Range/Units 19:58 22:04 WBC (4.8-10.8) K/ul RBC (4.70-6.10) M/uL Hgb (14.0-18.0) g/dl POC Hgb (14.0-18.0) g/dl Hct (42.0-52.0) % POC Hct (42-52) % MCV (80.0-100.0) fL MCH (25.0-34.0) pg MCHC (32.0-36.0) g/dL RDW Std Deviation (36.4-46.3) fL RDW Coeff of Dinorah (11.5-14.5) % Plt Count (130-400) K/uL MPV (9.4-12.4) fL Immature Gran % (Auto) % Neut % (Auto) % Lymph % (Auto) % Teller % (Auto) % Eos % (Auto) % Baso % (Auto) % Neut # (Auto) (1.40-6.50) K/uL Lymph # (Auto) (1.2-3.4) K/uL Teller # (Auto) (0.11-0.59) K/uL Eos # (Auto) (0-0.50) K/uL Baso # (Auto) (0-0.2) K/uL Immature Gran # (Auto) (0.01-0.20) K/uL POC Sodium (135-144) mmol/L Sodium (136-145) mmol/L POC Potassium (3.3-5.0) mmol/L Potassium (3.5-5.1) mmol/L POC Chloride (101-112) mmol/L Chloride (98-107) mmol/L Carbon Dioxide (21-32) mmol/L POC Total CO2 (24-31) mmol/L Anion Gap (3-11) POC Anion Gap (16-25) mmol/L POC BUN (7-18) mg/dl BUN (6-23) mg/dl Creatinine (0.6-1.4) mg/dl POC Creatinine (0.6-1.3) mg/dl Est Cr Clr Drug Dosing Est GFR ( Amer) ml/min Est GFR (Non-Af Amer) ml/min BUN/Creatinine Ratio (10-20) Glucose (70-99(Fasting)) mg/dl POC Glucose (other) (70-99) mg/dl Calcium (8.6-10.3) mg/dl POC Ioniz Calcium Misha (1.12-1.32) mmol/l Total Bilirubin (0.2-1.0) mg/dl AST (13-39) U/L ALT (7-52) U/L Alkaline Phosphatase (34-104) U/L Troponin I High Sens (0-20) pg/ml Total Protein (6.0-8.3) gm/dl Albumin (3.4-5.0) gm/dl Globulin (2.5-4.0) gm/dl Albumin/Globulin Ratio (0.9-2) Lipase (11-82) U/L Urine Color Dark Yellow Urine Appearance Turbid A (Clear) Urine pH 5.0 (4.5-7.5) Ur Specific Bypro > 1.045 H (1.000-1.030) Urine Protein Trace H (Negative) Urine Glucose (UA) 3+ H (Negative) Urine Ketones Trace H (Negative) Urine Blood Negative (Negative) Urine Nitrite Negative (Negative) Urine Bilirubin Negative (Negative) Urine Urobilinogen Negative (Negative) Ur Leukocyte Esterase Negative (Negative) Urine WBC (Auto) 1-5 (0-5) /hpf Urine RBC (Auto) 0-4 (0-4) /hpf U Hyaline Cast (Auto) 0 (0-5) /lpf U Epithel Cells (Auto) 5-10 H (0-5) /lpf Urine Bacteria (Auto) Negative (Negative) Urine Crystals Uric Acid A (None Prsent) Uric Acid Crystals Present A (None Prsent) SARS-CoV-2, RNA, NAAT NEGATIVE (NEGATIVE) Administered Medications Potassium Chloride/Sodium Chloride (Normal Saline W/20 Meq Kcl) 20 meq in 1,000 mls @ 80 mls/hr IV .[id number] [facility] Stop: 06/20/23 00:29 Last Admin: 05/21/23 00:27 Dose: 80 mls/hr Documented By: TRISTON Piperacillin Sod/Tazobactam (Sod 4.5 gm/ Dextrose) 120 mls @ 30 mls/hr IV Q8H [facility]; Protocol Stop: 05/31/23 01:59 Last Admin: 05/21/23 02:10 Dose: 30 mls/hr Documented By: TRISTON Insulin Aspart (Insulin Aspart Per Unit Charge) 0 units SC Q6 [facility] Stop: 06/20/23 00:59 Last Admin: 05/21/23 00:58 Dose: 3 units Documented By: TRISTON Co-signed By: ADWOA Discontinued Medications Albuterol (Albut/Ipratrop 3mg/0.5mg Neb 3 Ml Vial) 3 ml NEB NOW STA; Protocol Stop: 05/20/23 19:13 Last Admin: 05/20/23 19:50 Dose: 3 ml Documented By: MERCEDES Fentanyl Citrate (Fentanyl Citrate Pf 100 Mcg/2 Ml Vial) 50 mcg IV Q15M PRN PRN Reason: Pain Stop: 06/03/23 19:05 Last Admin: 05/20/23 19:42 Dose: 50 mcg Documented By: MERCEDES Sodium Chloride (Nss 1000ml) 500 mls @ 999 mls/hr IV .Q31M ONE Stop: 05/20/23 19:36 Last Infusion: 05/20/23 20:01 Dose: 0 mls/hr Documented By: Admin: 05/20/23 19:30 Dose: 999 mls/hr Documented By: MERCEDES Sodium Chloride (Nss 1000ml) 1,000 mls @ 125 mls/hr IV .Q8H [facility] Stop: 06/19/23 19:14 Last Infusion: 05/21/23 00:00 Dose: 0 mls/hr Documented By: Admin: 05/20/23 19:46 Dose: 125 mls/hr Documented By: MERCEDES Piperacillin Sod/Tazobactam Sod (Zosyn) 4.5 gm in 120 mls @ 240 mls/hr IV NOW ONE Stop: 05/20/23 19:55 Last Infusion: 05/20/23 20:47 Dose: 0 mls/hr Documented By: Admin: 05/20/23 20:17 Dose: 240 mls/hr Documented By: MERCEDES Vancomycin HCl 1,750 mg/ (Sodium Chloride) 535 mls @ 200 mls/hr IV 0000 ONE Stop: 05/21/23 02:40 Last Admin: 05/21/23 00:33 Dose: 200 mls/hr Documented By: TRISTON Ioversol (Optiray 320 100ml) 94 ml IV ONCE ONE Stop: 05/20/23 19:24 Last Admin: 05/20/23 19:23 Dose: 94 ml Documented By: MARGO Ondansetron HCl (Ondansetron Inj 2 Mg/Ml 2 Ml Vial) 4 mg IV NOW STA Stop: 05/20/23 19:07 Last Admin: 05/20/23 19:42 Dose: 4 mg Documented By: MERCEDES Imaging Data Radiologist's Impression: Abdomen/Pelvis CT 05/20/23 19:05 CT abd pelvis IV con only CLINICAL HISTORY: post op right sided abd pain, recent philly TECHNIQUE: Helical axial images of the abdomen and pelvis were obtained and dis played. Automated dose lowering techniques and/or adjustment according to patient size were utilized for this exam. This exam was performed with intravenous contrast. CT DOSE: 1233.86 mGy.cm COMPARISON: Comparison is made to CT abdomen pelvis 04/10/2023 FINDINGS: Lower chest: There is a small right pleural effusion with atelectasis noted. Liver: Unremarkable. No focal lesions are seen. Gallbladder and biliary tree: Patient is status post cholecystectomy. There is a irregular gas and fluid collection in the gallbladder fossa with surrounding fat stranding. The common bile duct is mildly prominent. A biliary stent is in satisfactory appearance with the proximal tip at the confluence of the intrahepatic bile ducts and its distal tip in the duodenum. Pancreas: There is more confluent heterogeneous fat stranding around the pancreas. No jey necrosis of the pancreatic parenchyma is seen. No discrete fluid collections are seen. Spleen: A tiny wedge-shaped hypodensity in the spleen may represent residua of previously noted splenic infarct. Adrenals: Unremarkable. Kidneys and ureters: Renal cysts are seen. Bladder: Unremarkable. Reproductive organs: Prostatomegaly is seen. Bowel: Diverticulosis is seen without diverticulitis. The appendix is normal. Lymph nodes Retroperitoneal: Unremarkable. Pelvic: Unremarkable. Mesenteric: Unremarkable. Peritoneum: Prominent fat stranding is seen in the right upper quadrant and more confluent fat stranding surrounds the pancreas. There is a irregular gas and fluid collection in the gallbladder fossa as well as a small amount of free ascites. A small amount of distant pneumoperitoneum is seen most prominently in the left upper quadrant. Vessels: Saccular aneurysm in the infrarenal aorta measures approximately 26 mm in diameter. Extensive calcified and noncalcified atherosclerotic disease is seen. 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 Abdominal wall: Left fat containing inguinal hernia. Postsurgical fat stranding and subcutaneous emphysema noted in the umbilicus. Bones: Degenerative changes in the visualized spine. IMPRESSION: 1. Findings are concerning for bile duct injury versus postsurgical infection at the cholecystectomy site. Satisfactory appearance of the biliary stent. 2. Subacute appearing peripancreatic inflammatory changes are compatible with history of prior pancreatitis. No pseudocysts are seen. 3. A small residual splenic infarct remains. 4. Additional findings as above. ACT 112: Negative or not required by law. Electronically signed by: Humphrey Paiz M.D. 05/20/2023 8:18 PM Chest X-Ray 05/20/23 19:05 XR chest 1V portable CLINICAL HISTORY: Dyspnea TECHNIQUE: Single frontal radiograph of the chest was obtained. Comparison: Comparison is made to chest radiograph 05/03/2023 FINDINGS: No lines and tubes are seen. The cardiomediastinal silhouette is normal. Elevation of right hemidiaphragm is noted. Lungs are inflated but clear. No evid ence of pleural effusion or pneumothorax. Incidentally noted left axillary clips. IMPRESSION: No acute chest disease. ACT 112: Negative or not required by law. Electronically signed by: Humphrey Paiz M.D. 05/20/2023 7:23 PM Discharge Plan Visit Data Chief Complaint: Shortness of Breath/Dyspnea Stated Complaint: AB PAIN, HYPOXIA ED Provider: Robert Ramirez Discharge Problem: Acute postoperative abdominal pain, Abscess, intra-abdominal, postoperative, Acute pancreatitis, Elevated troponin Patient Disposition: Admitted As Inpatient Discharge Instructions Interventions: ED Discharge Assessment Last Done: 05/20/23 23:34
[2023-05-20] MEDS ORDERED: SODIUM CHLORIDE 0.9% 1000ML 1,000 ML IV SCH (19:15)
[2023-05-20 19:20] LABS: iSTAT Creatinine 0.6 mg/dl (0.6-1.3); iSTAT Hemoglobin 12.9 g/dl (14.0-18.0); iSTAT Potassium 3.7 mmol/L (3.3-5.0)
[2023-05-20 19:21] LABS: Basophils # (auto) 0.03 K/uL (0-0.2); Basophils % (auto) 0.3 %; Hemoglobin 12.6 g/dl (14.0-18.0); Immature Granulocytes # (auto) 0.04 K/uL (0.01-0.20); Immature Granulocytes % (auto) 0.4 %; Lymphocytes # (auto) 0.36 K/uL (1.2-3.4); Lymphocytes % (auto) 3.4 %; Mean Corpuscular Hemoglobin 30.4 pg (25.0-34.0); Mean Corpuscular Hgb Conc 34.1 g/dL (32.0-36.0); Mean Corpuscular Volume 89.4 fL (80.0-100.0); Mean Platelet Volume 10.1 fL (9.4-12.4); Monocytes # (auto) 0.62 K/uL (0.11-0.59); Monocytes % (auto) 5.9 %; Neutrophils # (auto) 9.42 K/uL (1.40-6.50); Platelet Count 199 K/uL (130-400); RDW Coefficient of Variation 15.9 % (11.5-14.5); RDW Standard Deviation 52.2 fL (36.4-46.3); Red Blood Count 4.14 M/uL (4.70-6.10); White Blood Count 10.47 K/ul (4.8-10.8)
[2023-05-20] MEDS ORDERED: OPTIRAY 320 100ml IV ONE (19:23)
--- NOTE | 2023-05-20 19:24 | XRay Report ---
XR chest 1V portable CLINICAL HISTORY: Dyspnea TECHNIQUE: Single frontal radiograph of the chest was obtained. Comparison: Comparison is made to chest radiograph 05/03/2023 FINDINGS: No lines and tubes are seen. The cardiomediastinal silhouette is normal. Elevation of right hemidiaph ragm is noted. Lungs are inflated but clear. No evidence of pleural effusion or pneumothorax. Inciden tally noted left axillary clips. IMPRESSION: No acute chest disease. ACT 112: Negative or not required by law. Electronically signed by: Humphrey Paiz M.D. 05/20/2023 7:23 PM
[2023-05-20] MEDS ORDERED: PIPERACILLIN/TAZOBACTAM 4.5 GM/120 ML BAG IV ONE (19:26)
[2023-05-20 19:39] LABS: Anion Gap 13 (3-11); BUN Creatinine Ratio 30.7 (10-20); Blood Urea Nitrogen 23 mg/dl (6-23); Calcium 8.7 mg/dl (8.6-10.3); Carbon Dioxide 21 mmol/L (21-32); Chloride 101 mmol/L (98-107); Est GFR (African American) 106.2 ml/min; Est GFR (Non-African American) 91.6 ml/min; Glucose 244 mg/dl (70-99(Fasting)); Potassium 3.7 mmol/L (3.5-5.1); Sodium 135 mmol/L (136-145)
[2023-05-20 19:47] LABS: Troponin I High Sensitivity 38.4 pg/ml (0-20)
--- NOTE | 2023-05-20 20:13 | Surgery Consultation ---
Date of Consultation May 20, 2023 Assessment & Plan (1) Acute postoperative abdominal pain: I discussed with the treating emergency room physician. After discussion with the radiologist there is concern the patient is developing a fluid collection in the gallbladder fossa from his previous surgery. It is unclear if this represents either a developing postoperative infection or a biloma. The radiologist did not feel that the fluid was consistent with blood making hematoma less likely. We recommended proceeding in the following manner: Patient to be admitted to the hospital N.p.o. status should be implemented Analgesics to be provided Antiemetics to be provided Fluid resuscitation with IV fluids has been initiated and should continue Broad-spectrum antibiotics have been initiated in the form of Zosyn and should continue.The patient has had blood and urine cultures obtained and these results to be followed with appropriate adjustments made antibiotics based on these results Serial labs should be followed Additional recommendations be forthcoming based on his clinical course as unfolds and serial labs as they become available We had a lengthy discussion with the patient and his family members who are present at the bedside. Supervising Physician Co-Signing Physician Notes As per Bhavesh Acosta physician [employer] assistant At this point we will institute broad-spectrum antibiotics We will plan to get a HIDA scan to rule out a bile leak even though the patient has a biliary stent he certainly could have a bile leak especially if the stent is occluded History of Present Illness Reason for Consultation: Postoperative abdominal pain, concern for biliary leak or infection History of Present Illness This is a 72-year-old male who presented to the emergency department secondary to abdominal pain. This patient was admitted to [facility] from March 31 through April 14 of this year. During this admission patient had gallstone pancreatitis that was complicated by sepsis, ileus, and choledocholithiasis. Patient did undergo an ERCP with stent placement on April 05 of this year. As recommended by gastroenterology that the stent remained in place for approximately 3 months. As it was felt that patient's pancreatitis was secondary to gallstones plans were put in place for cholecystectomy but the patient was discharged home prior to undergoing this procedure. Patient was brought back to the hospital on May 16, 4 days ago, where he underwent a laparoscopic cholecystectomy and an umbilical hernia repair by Dr. Deepak Pickering. Patient was discharged home following his surgery on the same day. Patient notes that he was doing well initially upon return home but for the past 1 to 2 days he has not been feeling well. Patient proved to be a poor historian but could tell me that he had some pain in his abdomen that was greatest in the right upper quadrant and epigastric area. He denies any nausea or vomiting. He denies any fevers, shakes, or chills. He notes he has not been eating much because he has had a poor appetite. He is unsure when he had his most recent bowel movement. Because of his symptomatology he did present to the emergency department. Since arrival to the hospital the patient has had labs and imaging which I independently reviewed. The patient did have a chest x-ray that did appear to have some bilateral basilar atelectasis but no evidence of pneumonia. A CT scan of the abdomen pelvis was performed that showed patient had a developing fluid collection with air-fluid level in the gallbladder fossa. I discussed this with the radiology department and the radiologist felt that this could be either representing a developing abscess or biloma. The patient was noted to have a stent in the bile duct from previous ERCP that was felt to be in good position. The pancreas did appear inflamed on this study but this was not new compared to prior CT scan in March of this year. In addition the patient was noted to have a localized area of free intraperitoneal air just underneath the right hemidiaphragm. Labs include a CBC her white blood cell count was normal at 10.4. The patient's hemoglobin and hematocrit were 12.6 and 37.0. These values did not represent a significant drop from previous values. His platelet count was 199,000. Chemistry profile showed sodium was 135 with a normal potassium. BUN and creatinine were both within the normal range. LFTs included a slight elevation of the patient's total bilirubin at 1.6. The AST, ALT, and alkaline phosphatase are all within the normal range. The patient did have a slight elevation of a high-sensitivity troponin at 38.4. An EKG showed normal sinus rhythm with some nonspecific ST-T wave changes. Since arrival to the emergency department the patient has been administered intravenous fluids and be given antibiotics in the form of Zosyn. At the time of my interview the patient did appear uncomfortable but noted that he did did note some improvement since arrival to the hospital. Allergies Allergy/AdvReac Type Severity Reaction Status Date / Time No Known Allergies Allergy Verified 05/16/23 05:35 Home Medications Medication Instructions Recorded Confirmed Type clopidogrel 75 mg tablet 75 mg PO QAM 08/17/20 05/20/23 History lisinopril 10 mg tablet 0 mg PO QAM 08/17/20 05/20/23 History metformin 500 mg tablet 1,000 mg PO BID 08/17/20 05/20/23 History aspirin 81 mg tablet,delayed 81 mg PO DAILY 03/31/23 05/20/23 History release levothyroxine 88 mcg tablet 88 mcg PO QAM 03/31/23 05/20/23 History (Synthroid) magnesium oxide 400 mg PO BID 03/31/23 05/20/23 History simvastatin 40 mg tablet 40 mg PO DAILY 03/31/23 05/20/23 History tamsulosin 0.4 mg capsule 0.4 mg PO DAILY 03/31/23 05/20/23 History blood [facility]/14/23 04/27/23 Rx Verio test strips) calcitriol 0.25 mcg capsule 0.25 mcg PO QAM #30 caps 04/14/23 05/20/23 Rx lancets 33 gauge ([facility] #[facility] ea 04/14/23 04/27/23 Rx Lancets) fluoxetine 40 mg capsule 40 mg PO HS 05/12/23 05/20/23 History multivit with 1 tab PO DAILY 05/12/23 05/20/23 History [id number]#190herbal 18 mg iron-800 mcg-150 mg tablet (Vitamin D3 Complete) pantoprazole 40 mg tablet,delayed 40 mg PO QAM 05/12/23 05/20/23 History release oxycodone 5 mg tablet 5 - 10 mg PO .[id number] PRN pain, 05/16/23 05/20/23 Rx for initial therapy, max 6 tabs per day #15 tabs nitroglycerin 0.3 mg sublingual 0.3 mg sublingual DAILY 05/20/23 05/20/23 History tablet polyethylene glycol 3350 17 gram 0 g PO DAILY PRN constipation 05/20/23 05/20/23 History oral powder packet (Miralax) Patient History Medical History Acute pancreatitis Hospitalized 03/2023 > acute kidney/liver failure 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 Hood Borderline hyperlipidemia Choledocholithiasis Depression Diabetes mellitus, type 2 Enlarged prostate History of COVID-19 11/16- congestion > resolved HTN (hypertension) Hx of melanoma of skin Hypothyroidism Poor historian phone interview done by pts daughter TIA (transient ischemic attack) x2, Most recent 8+ years ago- residual problems with taking longer to process info Surgical History Family history of reaction to anesthesia daughter > post-op nausea H/O umbilical hernia repair (05/16/23) p Laparoscopic Cholecystectomy(Not Applicable) - Deepak Pickering DO s and Open Umbilical Hernia Repair(Not Applicable) - Deepak Pickering DO History of ERCP + stent (plans for removal after lap [place]) History of esophagogastroduodenoscopy (EGD) Hx laparoscopic cholecystectomy (05/16/23) p Laparoscopic Cholecystectomy(Not Applicable) - Deepak Pickering DO s and Open Umbilical Hernia Repair(Not Applicable) - Deepak Pickering DO S/P colonoscopy S/P hernia repair inguinal Social History Smoking Status: Former smoker Tobacco Type: Smokeless Tobacco (Dip or Chew) Cigarettes Per Day: quit smoking 40+ years; Second Hand Exposure: No; Do You Dip or Chew Tobacco: No; Tobacco Cessation Education Requested by Patient: No Hx Alcohol Use: No Hx Substance Use: No Preferred Language: Croatian Communication Ability: Effective Visual Impairment: No Limitations Hearing Ability: Normal Permit Coordinator Required: No Beliefs That Will Affect Care: None marital status: Current Living Situation: Alone Current Living Situation Comment: dtr goes to drs appointments - he lives by himself current occupational status: retired Other Information That Helps Us Care for You: No Feels Safe at Home: Yes Safety Concerns: Feels Safe At This Time Assistive Devices: Glasses Review of Systems Constitutional: + fatigue and + anorexia; no fever and no chills Eyes: + corrective lenses Ear, Nose, Mouth, Throat: no hearing loss Respiratory: no cough and no dyspnea Cardiovascular: no chest pain Gastrointestinal: as per Subjective / HPI and + abdominal pain; no nausea and no vomiting Genitourinary: no dysuria Musculoskeletal: no back pain Integumentary: no rash Neurologic: no localized weakness Physical Exam Constitutional: well developed, well nourished and + ill appearing Eyes: No scleral jaundice noted ENMT: Ears: no hearing impairment and no external ear abnormality Mouth: no oropharynx abnormality Neck: trachea midline Respiratory: Patient was not using accessory muscles to aid in respiration. His respirations did appear shallow however. There is no wheezing or rails noted. Cardiovascular: Rate/Rhythm: regular rate, regular rhythm and + tachycardic Vessels: dorsalis pedis pulses present and radial pulses present Gastrointestinal (Abdomen): Patient's abdomen has slight distention and is firm/rigid. All of his surgical incisions from his laparoscopic surgery are healing well without signs of infection. Patient did have tenderness with palpation to even light touch in the right upper quadrant and to a lesser degree the epigastric area. There is no pain with palpation on the left side of his abdomen. Musculoskeletal: No calf tenderness. No lower extremity edema. Feet are warm and well-perfused. Pulses are palpable in all 4 extremities Skin: no jaundice Neurologic: moves all extremities Results & Data Vital Signs (Past 12 Hours) Vital Signs Temp Pulse Resp BP Pulse Ox O2 Del Method O2 Flow Rate 05/20/23 20:00 91 H 30 H 122/87 95 Non-rebreather 15 05/20/23 19:30 93 H 31 H 134/90 98 Non-rebreather 15 05/20/23 19:29 93 H 31 H 142/87 H 99 Non-rebreather 15 05/20/23 19:00 32 H 116/84 94 Non-rebreather 15 05/20/23 18:57 104 H 39 H 133/91 92 Non-rebreather 15 05/20/23 19:05 34 H 88 L High Flow Nasal Cannula 40 05/20/23 19:00 Non-rebreather 15 05/20/23 19:00 Non-rebreather 15 05/20/23 19:00 37.1 C 100 H 31 H 133/89 83 L Room Air FiO2 05/20/23 20:00 05/20/23 19:30 05/20/23 19:29 05/20/23 19:00 05/20/23 18:57 05/20/23 19:05 100 05/20/23 19:00 05/20/23 19:00 05/20/23 19:00 PG Care Time/CCT Total # of Minutes Spent Total Time Spent with Patient: Total time spent is greater than 50% in coordination of care (as documented) at patient's floor/unit and/or counseling patient: Coding Level of Care Code None Diagnoses Acute postoperative abdominal pain G89.18; R10.9
[2023-05-20 20:18] LABS: Alanine Aminotransferase 23 U/L (7-52); Albumin Globulin Ratio 1.1 (0.9-2); Albumin Level 3.5 gm/dl (3.4-5.0); Alkaline Phosphatase 71 U/L (34-104); Aspartate Aminotransferase 14 U/L (13-39); Bilirubin,Total 1.6 mg/dl (0.2-1.0); Globulin 3.1 gm/dl (2.5-4.0); Total Protein 6.6 gm/dl (6.0-8.3)
--- NOTE | 2023-05-20 20:19 | CT Scan Report ---
CT abd pelvis IV con only CLINICAL HISTORY: post op right sided abd pain, recent philly TECHNIQUE: Helical axial images of the abdomen and pelvis were obtained and displayed. Automated dose lowering techniques and/or adjustment according to patient size were utilized for this exam. This e xam was performed with intravenous contrast. CT DOSE: 1233.86 mGy.cm COMPARISON: Comparison is made to CT abdomen pelvis 04/10/2023 FINDINGS: Lower chest: There is a small right pleural effusion with atelectasis noted. Liver: Unremarkable. No focal lesions are seen. Gallbladder and biliary tree: Patient is status post cholecystectomy. There is a irregular gas and fl uid collection in the gallbladder fossa with surrounding fat stranding. The common bile duct is mildl y prominent. A biliary stent is in satisfactory appearance with the proximal tip at the confluence of the intrahepatic bile ducts and its distal tip in the duodenum. Pancreas: There is more confluent heterogeneous fat stranding around the pancreas. No jey necrosis of the pancreatic parenchyma is seen. No discrete fluid collections are seen. Spleen: A tiny wedge-shaped hypodensity in the spleen may represent residua of previously noted splen ic infarct. Adrenals: Unremarkable. Kidneys and ureters: Renal cysts are seen. Bladder: Unremarkable. Reproductive organs: Prostatomegaly is seen. Bowel: Diverticulosis is seen without diverticulitis. The appendix is normal. Lymph nodes Retroperitoneal: Unremarkable. Pelvic: Unremarkable. Mesenteric: Unremarkable. Peritoneum: Prominent fat stranding is seen in the right upper quadrant and more confluent fat strand ing surrounds the pancreas. There is a irregular gas and fluid collection in the gallbladder fossa as well as a small amount of free ascites. A small amount of distant pneumoperitoneum is seen most prom inently in the left upper quadrant. Vessels: Saccular aneurysm in the infrarenal aorta measures approximately 26 mm in diameter. Extensiv e calcified and noncalcified atherosclerotic disease is seen. 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 Abdominal wall: Left fat containing inguinal hernia. Postsurgical fat stranding and subcutaneous emph ysema noted in the umbilicus. Bones: Degenerative changes in the visualized spine. IMPRESSION: 1. Findings are concerning for bile duct injury versus postsurgical infection at the cholecystectomy site. Satisfactory appearance of the biliary stent. 2. Subacute appearing peripancreatic inflammatory changes are compatible with history of prior pancr eatitis. No pseudocysts are seen. 3. A small residual splenic infarct remains. 4. Additional findings as above. ACT 112: Negative or not required by law. Electronically signed by: Humphrey Paiz M.D. 05/20/2023 8:18 PM
[2023-05-20 20:22] LABS: Lipase 3 U/L (11-82)
--- NOTE | 2023-05-20 21:35 | History & Physical Report ---
Date of Service May 20, 2023 Assessment & Plan (1) Abscess, intra-abdominal, postoperative: (2) Elevated troponin: (3) Acute pancreatitis: (4) Acute postoperative abdominal pain: (5) Type 2 diabetes mellitus: (6) Splenic infarct: (7) HTN (hypertension): (8) Hypothyroidism: (9) Umbilical hernia: (10) Gallstone pancreatitis: Plan Postoperative intra-abdominal infection/gallstone pancreatitis/status post laparoscopic cholecystectomy and umbilical hernia repair/recent splenic infarcts- NPO Patient did complete a course of IV antibiotics from 03/31-04/14, and then 10 days of Augmentin twice daily upon discharge. He then underwent surgery for lap philly and umbilical hernia repair on 05/16 Zosyn 4.5 g IV every 8 hours Vancomycin IV per pharmacokinetic monitoring Zofran 4 mg IV every 6 hours as needed Pantoprazole 40 mg IV daily NSS + KCl 20 mEq at 80 mils per hour Acetaminophen 1 g IV every 8 hours as needed for mild pain or fever Toradol 15 mg IV every 6 hours as needed for moderate pain Dilaudid 0.25 mg IV every 4 hours as needed for severe pain General surgery has seen in the ED and will follow Elevated troponin/hypertension/cerebrovascular disease- The patient will be admitted to telemetry for serial cardiac enzymes, serial EKG's, cardiac rhythm monitoring and a 2-D echocardiogram with Dopplers. Troponin 38.4 at admission, likely type II supply/demand mismatch Hold aspirin, clopidogrel, lisinopril while n.p.o. Hypothyroidism- Hold levothyroxine 88 mcg daily unless n.p.o. for significant interval time, and then start IV half dose Diabetes mellitus- Hold metformin Placed on Accu-Cheks with NovoLog SSI Hyperlipidemia- Hold simvastatin BPH- Hold tamsulosin Monitor I's and O's closely while n.p.o. and receiving IV fluids Depression- Hold fluoxetine while n.p.o. History of Present Illness Chief Complaint: The patient presents to the emergency department with complaint of acute abdominal pain, shortness of breath, decreased oral intake, nausea without vomiting, and generally feeling unwell Primary Care Provider: Juanita Morgan MD The patient is a 72-year-old male with past medical history significant for esophageal dysphagia, diabetes mellitus, history of CVA, depression, splenic infarct, gallstone pancreatitis, umbilical hernia, hypothyroidism and hypertension. He was admitted to [facility] from 03/31-04/14/2023 for gallstone pancreatitis with 2 new splenic infarcts, ileus and had placement of a biliary stent. During that admission he also underwent ERCP and had stones removed from his common bile duct. He was then discharged on 10 days of Augmentin, with surgical follow-up in the outpatient setting, and then underwent a laparoscopic cholecystectomy and open umbilical hernia repair on 05/16/2023. The patient as noted above has had abdominal pain, nausea without vomiting, shortness of breath, decreased oral intake and generally feeling unwell. CT of abdomen and pelvis scan in the emergency department today: Possible bile duct injury, postsurgical infection, evidence of previous pancreatitis, and evidence of previous splenic infarcts. Significant abnormal laboratories: WBC 10.47, glucose 244, troponin 38.4, total bilirubin 1.6 From the ED the patient received the following: Normal saline 500 mL, then at 125 mils per hour. Zofran 4 mg IV, DuoNeb, Zosyn 4.5 g IV and fentanyl 50 mcg IV. Patient was assessed by surgery in the emergency department, and felt that the patient would be best served by medical admission, and quieting the patient down, and then reassessment for any possible surgical needs. Allergies Allergy/AdvReac Type Severity Reaction Status Date / Time No Known Allergies Allergy Verified 05/16/23 05:35 Home Medications Medication Instructions Recorded Confirmed Type clopidogrel 75 mg tablet 75 mg PO QAM 08/17/20 05/20/23 History lisinopril 10 mg tablet 0 mg PO QAM 08/17/20 05/20/23 History metformin 500 mg tablet 1,000 mg PO BID 08/17/20 05/20/23 History aspirin 81 mg tablet,delayed 81 mg PO DAILY 03/31/23 05/20/23 History release levothyroxine 88 mcg tablet 88 mcg PO QAM 03/31/23 05/20/23 History (Synthroid) magnesium oxide 400 mg PO BID 03/31/23 05/20/23 History simvastatin 40 mg tablet 40 mg PO DAILY 03/31/23 05/20/23 History tamsulosin 0.4 mg capsule 0.4 mg PO DAILY 03/31/23 05/20/23 History blood sugar diagnostic (OneTouch #25 ea 04/14/23 04/27/23 Rx Verio test strips) calcitriol 0.25 mcg capsule 0.25 mcg PO QAM #30 caps 04/14/23 05/20/23 Rx lancets 33 gauge (OneTouch Delica #100 ea 04/14/23 04/27/23 Rx Lancets) fluoxetine 40 mg capsule 40 mg PO HS 05/12/23 05/20/23 History multivit with 1 tab PO DAILY 05/12/23 05/20/23 History [id number]#190herbal 18 mg iron-800 mcg-150 mg tablet (Vitamin D3 Complete) pantoprazole 40 mg tablet,delayed 40 mg PO QAM 05/12/23 05/20/23 History release oxycodone 5 mg tablet 5 - 10 mg PO .[id number] PRN pain, 05/16/23 05/20/23 Rx for initial therapy, max 6 tabs per day #15 tabs nitroglycerin 0.3 mg sublingual 0.3 mg sublingual DAILY 05/20/23 05/20/23 History tablet polyethylene glycol 3350 17 gram 0 g PO DAILY PRN constipation 05/20/23 05/20/23 History oral powder packet (Miralax) Past Med/Surg History Medical History Acute pancreatitis Hospitalized 03/2023 > acute kidney/liver failure 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 Hood Borderline hyperlipidemia Choledocholithiasis Depression Diabetes mellitus, type 2 Enlarged prostate History of COVID-19 11/16- congestion > resolved HTN (hypertension) Hx of melanoma of skin Hypothyroidism Poor historian phone interview done by pts daughter TIA (transient ischemic attack) x2, Most recent 8+ years ago- residual problems with taking longer to process info Surgical History Family history of reaction to anesthesia daughter > post-op nausea H/O umbilical hernia repair (05/16/23) p Laparoscopic Cholecystectomy(Not Applicable) - Deepak Pickering DO s and Open Umbilical Hernia Repair(Not Applicable) - Deepak Pickering DO History of ERCP + stent (plans for removal after lap philly) History of esophagogastroduodenoscopy (EGD) Hx laparoscopic cholecystectomy (05/16/23) p Laparoscopic Cholecystectomy(Not Applicable) - Deepak Pickering, DO s and Open Umbilical Hernia Repair(Not Applicable) - Deepak Pickering DO S/P colonoscopy S/P hernia repair inguinal Social History Smoking Status: Former smoker Tobacco Type: Smokeless Tobacco (Dip or Chew) Cigarettes Per Day: quit smoking 40+ years; Second Hand Exposure: No; Do You Dip or Chew Tobacco: No; Tobacco Cessation Education Requested by Patient: No Hx Alcohol Use: No Hx Substance Use: No Preferred Language: [place] Communication Ability: Effective Visual Impairment: No Limitations Hearing Ability: Normal [employer] Worker Required: No Beliefs That Will Affect Care: None marital status: Current Living Situation: Alone Current Living Situation Comment: dtr goes to drs appointments - he lives by himself current occupational status: retired Other Information That Helps Us Care for You: No Feels Safe at Home: Yes Safety Concerns: Feels Safe At This Time Assistive Devices: Glasses Review of Systems Review of Systems: The patient denies chest pain, palpitations, cough, lower extremity swelling, sore throat, fevers, chills, sweats, blood in urine or stool, dysuria, urinary frequency or urgency, lightheadedness, dizziness, headache, memory loss, loss of consciousness, rash, abnormal bruising or bleeding, imbalance, focal or generalized weakness, numbness or tingling in arms or legs, generalized arthralgias or myalgias, back or neck pain, or night sweats. The review of systems is otherwise negative other than for that already noted above, and at least 10 systems have been reviewed. Physical Exam Physical Exam: The patient is awake, alert and oriented 3, well developed and well nourished, normocephalic and atraumatic, lying in bed and in no acute distress. HEENT--PERRL, EOMI, mucous membranes and oropharynx dry. Neck--supple. No JVD. No bruits. Thyroid normal, trachea midline, no adenopathy. Heart--normal S1 and S2. No murmurs, rubs or gallops. Lungs--clear bilaterally, no respiratory distress, no accessory muscle use. Abdomen--normal bowel sounds and soft, mild generalized tenderness. Mild erythema around incision sites Extremities--no cyanosis or clubbing. No edema. Dermatologic--see above Neurologic--cranial nerves II through XII grossly intact. Rheumatologic--limited exam due to pain and general illness Psychiatric--normal affect. Results & Data Results & Data Vital Signs (Past 12 Hours) Vital Signs Temp Pulse Resp BP Pulse Ox O2 Del Method O2 Flow Rate 05/20/23 19:05 103 H 05/20/23 21:00 90 27 H 121/83 98 Non-rebreather 15 05/20/23 20:30 90 29 H 121/83 98 Non-rebreather 15 05/20/23 20:00 91 H 30 H 122/87 95 Non-rebreather 15 05/20/23 19:30 93 H 31 H 134/90 98 Non-rebreather 15 05/20/23 19:29 93 H 31 H 142/87 H 99 Non-rebreather 15 05/20/23 19:00 32 H 116/84 94 Non-rebreather 15 05/20/23 18:57 104 H 39 H 133/91 92 Non-rebreather 15 05/20/23 19:05 34 H 88 L High Flow Nasal Cannula 40 05/20/23 19:00 Non-rebreather 15 05/20/23 19:00 Non-rebreather 15 05/20/23 19:00 37.1 C 100 H 31 H 133/89 83 L Room Air FiO2 05/20/23 19:05 05/20/23 21:00 05/20/23 20:30 05/20/23 20:00 05/20/23 19:30 05/20/23 19:29 05/20/23 19:00 05/20/23 18:57 05/20/23 19:05 100 05/20/23 19:00 05/20/23 19:00 05/20/23 19:00 Laboratory Results Laboratory Results WBC 10.47 K/ul (4.8-10.8) 05/20/23 19:04 RBC 4.14 M/uL (4.70-6.10) L 05/20/23 19:04 Hgb 12.6 g/dl (14.0-18.0) L 05/20/23 19:04 POC Hgb 12.9 g/dl (14.0-18.0) L 05/20/23 19:08 Hct 37.0 % (42.0-52.0) L 05/20/23 19:04 POC Hct 38 % (42-52) L 05/20/23 19:08 MCV 89.4 fL (80.0-100.0) 05/20/23 19:04 MCH 30.4 pg (25.0-34.0) 05/20/23 19:04 MCHC 34.1 g/dL (32.0-36.0) 05/20/23 19:04 RDW Std Deviation 52.2 fL (36.4-46.3) H 05/20/23 19:04 RDW Coeff of Dinorah 15.9 % (11.5-14.5) H 05/20/23 19:04 Plt Count 199 K/uL (130-400) 05/20/23 19:04 MPV 10.1 fL (9.4-12.4) 05/20/23 19:04 Immature Gran % (Auto) 0.4 % 05/20/23 19:04 Neut % (Auto) 90.0 % 05/20/23 19:04 Lymph % (Auto) 3.4 % 05/20/23 19:04 [place] % (Auto) 5.9 % 05/20/23 19:04 Eos % (Auto) 0.0 % 05/20/23 19:04 Baso % (Auto) 0.3 % 05/20/23 19:04 Neut # (Auto) 9.42 K/uL (1.40-6.50) H 05/20/23 19:04 Lymph # (Auto) 0.36 K/uL (1.2-3.4) L 05/20/23 19:04 [place] # (Auto) 0.62 K/uL (0.11-0.59) H 05/20/23 19:04 Eos # (Auto) 0.00 K/uL (0-0.50) 05/20/23 19:04 Baso # (Auto) 0.03 K/uL (0-0.2) 05/20/23 19:04 Immature Gran # (Auto) 0.04 K/uL (0.01-0.20) 05/20/23 19:04 POC Sodium 136 mmol/L (135-144) 05/20/23 19:08 Sodium 135 mmol/L (136-145) L 05/20/23 19:04 POC Potassium 3.7 mmol/L (3.3-5.0) 05/20/23 19:08 Potassium 3.7 mmol/L (3.5-5.1) 05/20/23 19:04 POC Chloride 101 mmol/L (101-112) 05/20/23 19:08 Chloride 101 mmol/L (98-107) 05/20/23 19:04 Carbon Dioxide 21 mmol/L (21-32) 05/20/23 19:04 POC Total CO2 19 mmol/L (24-31) L 05/20/23 19:08 Anion Gap 13 (3-11) H 05/20/23 19:04 POC Anion Gap 21.0 mmol/L (16-25) 05/20/23 19:08 POC BUN 21 mg/dl (7-18) H 05/20/23 19:08 BUN 23 mg/dl (6-23) 05/20/23 19:04 Creatinine 0.75 mg/dl (0.6-1.4) 05/20/23 19:04 POC Creatinine 0.6 mg/dl (0.6-1.3) 05/20/23 19:08 Est Cr Clr Drug Dosing Not Reportable 05/20/23 19:04 Est GFR ( Amer) 106.2 ml/min 05/20/23 19:04 Est GFR (Non-Af Amer) 91.6 ml/min 05/20/23 19:04 BUN/Creatinine Ratio 30.7 (10-20) H 05/20/23 19:04 Glucose 244 mg/dl (70-99(Fasting)) H 05/20/23 19:04 POC Glucose 210 mg/dl (70-99) H 05/20/23 23:56 POC Glucose (other) 246 mg/dl (70-99) H 05/20/23 19:08 Calcium 8.7 mg/dl (8.6-10.3) 05/20/23 19:04 POC Ioniz Calcium Misha 1.00 mmol/l (1.12-1.32) L 05/20/23 19:08 Total Bilirubin 1.6 mg/dl (0.2-1.0) H 05/20/23 19:04 AST 14 U/L (13-39) 05/20/23 19:04 ALT 23 U/L (7-52) 05/20/23 19:04 Alkaline Phosphatase 71 U/L (34-104) 05/20/23 19:04 Troponin I High Sens 43.3 pg/ml (0-20) H 05/20/23 23:12 Total Protein 6.6 gm/dl (6.0-8.3) 05/20/23 19:04 Albumin 3.5 gm/dl (3.4-5.0) 05/20/23 19:04 Globulin 3.1 gm/dl (2.5-4.0) 05/20/23 19:04 Albumin/Globulin Ratio 1.1 (0.9-2) 05/20/23 19:04 Lipase 3 U/L (11-82) L 05/20/23 19:04 Urine Color Dark Yellow 05/20/23 22:04 Urine Appearance Turbid (Clear) A 05/20/23 22:04 Urine pH 5.0 (4.5-7.5) 05/20/23 22:04 Ur Specific [place] > 1.045 (1.000-1.030) H 05/20/23 22:04 Urine Protein Trace (Negative) H 05/20/23 22:04 Urine Glucose (UA) 3+ (Negative) H 05/20/23 22:04 Urine Ketones Trace (Negative) H 05/20/23 22:04 Urine Blood Negative (Negative) 05/20/23 22:04 Urine Nitrite Negative (Negative) 05/20/23 22:04 Urine Bilirubin Negative (Negative) 05/20/23 22:04 Urine Urobilinogen Negative (Negative) 05/20/23 22:04 Ur Leukocyte Esterase Negative (Negative) 05/20/23 22:04 Urine WBC (Auto) 1-5 /hpf (0-5) 05/20/23 22:04 Urine RBC (Auto) 0-4 /hpf (0-4) 05/20/23 22:04 U Hyaline Cast (Auto) 0 /lpf (0-5) 05/20/23 22:04 U Epithel Cells (Auto) 5-10 /lpf (0-5) H 05/20/23 22:04 Urine Bacteria (Auto) Negative (Negative) 05/20/23 22:04 Urine Crystals Uric Acid (None Prsent) A 05/20/23 22:04 Uric Acid Crystals Present (None Prsent) A 05/20/23 22:04 SARS-CoV-2, RNA, NAAT NEGATIVE (NEGATIVE) 05/20/23 19:58 Impressions Abdomen/Pelvis CT 05/20/23 19:05 CT abd pelvis IV con only CLINICAL HISTORY: post op right sided abd pain, recent philly TECHNIQUE: Helical axial images of the abdomen and pelvis were obtained and displayed. Automated dose lowering techniques and/or adjustment according to patient size were utilized for this exam. This exam was performed with intravenous contrast. CT DOSE: 1233.86 mGy.cm COMPARISON: Comparison is made to CT abdomen pelvis 04/10/2023 FINDINGS: Lower chest: There is a small right pleural effusion with atelectasis noted. Liver: Unremarkable. No focal lesions are seen. Gallbladder and biliary tree: Patient is status post cholecystectomy. There is a irregular gas and fluid collection in the gallbladder fossa with surrounding fat stranding. The common bile duct is mildly prominent. A biliary stent is in satisfactory appearance with the proximal tip at the confluence of the intrahepatic bile ducts and its distal tip in the duodenum. Pancreas: There is more confluent heterogeneous fat stranding around the pancreas. No jey necrosis of the pancreatic parenchyma is seen. No discrete fluid collections are seen. Spleen: A tiny wedge-shaped hypodensity in the spleen may represent residua of previously noted splenic infarct. Adrenals: Unremarkable. Kidneys and ureters: Renal cysts are seen. Bladder: Unremarkable. Reproductive organs: Prostatomegaly is seen. Bowel: Diverticulosis is seen without diverticulitis. The appendix is normal. Lymph nodes Retroperitoneal: Unremarkable. Pelvic: Unremarkable. Mesenteric: Unremarkable. Peritoneum: Prominent fat stranding is seen in the right upper quadrant and more confluent fat stranding surrounds the pancreas. There is a irregular gas and fluid collection in the gallbladder fossa as well as a small amount of free ascites. A small amount of distant pneumoperitoneum is seen most prominently in the left upper quadrant. Vessels: Saccular aneurysm in the infrarenal aorta measures approximately 26 mm in diameter. Extensive calcified and noncalcified atherosclerotic disease is seen. 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 Abdominal wall: Left fat containing inguinal hernia. Postsurgical fat stranding and subcutaneous emphysema noted in the umbilicus. Bones: Degenerative changes in the visualized spine. IMPRESSION: 1. Findings are concerning for bile duct injury versus postsurgical infection at the cholecystectomy site. Satisfactory appearance of the biliary stent. 2. Subacute appearing peripancreatic inflammatory changes are compatible with history of prior pancreatitis. No pseudocysts are seen. 3. A small residual splenic infarct remains. 4. Additional findings as above. ACT 112: Negative or not required by law. Electronically signed by: Humphrey Paiz M.D. 05/20/2023 8:18 PM Chest X-Ray 05/20/23 19:05 XR chest 1V portable CLINICAL HISTORY: Dyspnea TECHNIQUE: Single frontal radiograph of the chest was obtained. Comparison: Comparison is made to chest radiograph 05/03/2023 FINDINGS: No lines and tubes are seen. The cardiomediastinal silhouette is normal. Elevation of right hemidiaphragm is noted. Lungs are inflated but clear. No evidence of pleural effusion or pneumothorax. Incidentally noted left axillary clips. IMPRESSION: No acute chest disease. ACT 112: Negative or not required by law. Electronically signed by: Humphrey Paiz M.D. 05/20/2023 7:23 PM Code Status & VTE Plan Code Status Full code PG Care Time/CCT Total # of Minutes Spent Total Time Spent with Patient: Total time spent is greater than 50% in coordination of care (as documented) at patient's floor/unit and/or counseling patient: Coding Level of Care Code 54507 INT INP/OBS CARE 3/75MIN Diagnoses Abscess, intra-abdominal, postoperative T81.43XA Elevated troponin R77.8 Acute pancreatitis K85.90 Acute postoperative abdominal pain G89.18; R10.9 Type 2 diabetes mellitus E11.9 Splenic infarct D73.5 HTN (hypertension) I10 Hypothyroidism E03.9 Umbilical hernia K42.9 Gallstone pancreatitis K85.10
[2023-05-20 22:28] LABS: Appearance Urine Turbid (Clear); Bacteria Urine Automated Negative (Negative); Bilirubin Urine Negative (Negative); Blood Urine Negative (Negative); Cast Urine Automated 0 /lpf (0-5); Color Urine Dark Yellow; Glucose Urine UA 3+ (Negative); Ketones Urine Trace (Negative); Leukocyte Esterase Urine Negative (Negative); Nitrite Urine Negative (Negative); Protein Urine Trace (Negative); RBC Urine Automated 0-4 /hpf (0-4); Specific Gravity Urine > 1.045 (1.000-1.030); Urobilinogen Urine Negative (Negative)
[2023-05-20] MEDS ORDERED: GLUCOSE 40% GEL 15 GM TUBE PO PRN (22:33)
[2023-05-20] MEDS ORDERED: CARBOHYDRATES FOR HYPOGLYCEMIA PO PRN (22:33)
[2023-05-20] MEDS ORDERED: DEXTROSE 50% 50 ML SYRINGE IV PRN (22:33)
[2023-05-20] MEDS ORDERED: GLUCOSE 10 TAB/TUBE PO PRN (22:33)
[2023-05-20] MEDS ORDERED: GLUCAGON FOR INJ 1 MG VIAL SQ PRN (22:33)
[2023-05-20] MEDS ORDERED: KETOROLAC TROMETHAMINE 15 MG/ML VIAL IV PRN (22:39)
[2023-05-20] MEDS ORDERED: HYDROmorphone INJ 0.5 MG/0.5 ML SYR IV PRN (22:39)
[2023-05-20] MEDS ORDERED: VANCOMYCIN CONSULT ACTIVE PRN (22:39)
[2023-05-20] MEDS ORDERED: ACETAMINOPHEN 1,000 MG/100 ML VIAL IV PRN (22:39)
[2023-05-20 23:03] LABS: Uric Acid Crystals Urine Present (None Prsent)
[2023-05-21] MEDS ORDERED: VANCOMYCIN HCL 1,750 MG in SODIUM CHLORIDE 0.9% 500 ML IV ONE
[2023-05-21] MEDS ORDERED: GLUCOSE 40% GEL 15 GM TUBE PO PRN (00:10)
[2023-05-21] MEDS ORDERED: VANCOMYCIN CONSULT ACTIVE PRN (00:10)
[2023-05-21] MEDS ORDERED: DEXTROSE 50% 50 ML SYRINGE IV PRN (00:10)
[2023-05-21] MEDS ORDERED: HYDROmorphone INJ 0.5 MG/0.5 ML SYR IV PRN (00:10)
[2023-05-21] MEDS ORDERED: VANCOMYCIN HCL 1,000 MG in SODIUM CHLORIDE 0.9% 250 ML IV SCH ×2 (00:10→10:00)
[2023-05-21] MEDS ORDERED: ONDANSETRON INJ 2 MG/ML 2 ML VIAL IV PRN (00:10)
[2023-05-21] MEDS ORDERED: PIPERACILLIN/TAZOBACTAM 4.5 GM in DEXTROSE 5% 100 ML IV SCH (00:10)
[2023-05-21] MEDS ORDERED: GLUCOSE 10 TAB/TUBE PO PRN (00:10)
[2023-05-21] MEDS ORDERED: GLUCAGON FOR INJ 1 MG VIAL SQ PRN (00:10)
[2023-05-21] MEDS ORDERED: ACETAMINOPHEN 1000 MG/100 ML IV IV PRN (00:10)
[2023-05-21] MEDS ORDERED: KETOROLAC TROMETHAMINE 15 MG/ML VIAL IV PRN (00:10)
[2023-05-21] MEDS ORDERED: NSS + 20MEQ KCL 20 MEQ/1,000 ML BAG IV SCH (00:10)
[2023-05-21] MEDS ORDERED: CARBOHYDRATES FOR HYPOGLYCEMIA PO PRN (00:10)
[2023-05-21] MEDS: NSS + 20MEQ KCL 20 MEQ/1,000 ML BAG IV SCH ×2 (00:27→13:45)
[2023-05-21] MEDS: INSULIN ASPART PER UNIT CHARGE SC SCH ×4 (00:58→18:16)
[2023-05-21] MEDS: PIPERACILLIN/TAZOBACTAM 4.5 GM in DEXTROSE 5% 100 ML IV SCH ×3 (02:10→18:21)
--- NOTE | 2023-05-21 05:23 | Surgery Progress Note ---
Date of Service May 21, 2023 Assessment & Plan (1) Acute postoperative abdominal pain: Plan: The patient has been admitted on the hospitalist service. We recommend proceeding as follows: There is concern the patient has a fluid collection in the gallbladder fossa potentially representing either a hematoma, biloma, or infectious process Maintain n.p.o. status Continue intravenous fluids Continue broad-spectrum antibiotics in form of Zosyn. It was previously stated that patient had blood and urine culture sent but this is incorrect and previously viewed cultures were from a previous admission. I have ordered blood cultures to be drawn with a.m. labs this morning. The patient remains afebrile without leukocytosis. A.m. labs are ordered and are pending. We will follow for results of these The patient appears to have made some clinical improvement. We will continue to follow serial exams and follow serial labs. If there is ongoing concern about fluid collection in the gallbladder fossa consideration can be given to reimaging the patient and if there is concern for an infected fluid collection a determination can be made if it is amenable to IR drainage Admission and Anticipated Discharge Date Admission Date: May 20, 2023 Supervising Physician Co-Signing Physician Notes As per Bhavesh Acosta physician pastry assistant Patient still has moderate amount of tenderness in right upper quadrant right flank area Rest of the abdomen pretty much unremarkable We will proceed with ordering a HIDA scan Subjective Patient is resting comfortably in bed. He notes continued abdominal pain in the right upper quadrant of his abdomen. He has not had any nausea or vomiting. Since admission he has not had a bowel movement or had any flatus. He denies any fevers, shakes, or chills. He notes that his shortness of breath that was noted in the emergency department has improved. I discussed with the table games shift manager nurse who did not voice any acute concerns. Physical Exam Constitutional: Patient does not appear to be in any distress and appears to be more comfortable than what was noted at the time of my exam in the emergency department Respiratory: Breath sounds are slightly decreased at bases but are without rales,, rhonchi, or wheezing. Patient is not using accessory muscles to aid in respiration Cardiovascular: Rate/Rhythm: regular rate and regular rhythm Gastrointestinal (Abdomen): Abdomen is noted to be slightly distended. Bowel sounds are present. Patient has pain with palpation of the right upper quadrant with associated guarding--- similar to what was noted in the emergency department. Results & Data Vital Signs (Past 12 Hours) Vital Signs Temp Pulse Pulse Resp BP BP Pulse Ox 05/21/23 03:38 36.6 C 75 18 121/78 96 05/21/23 02:25 97 05/21/23 00:05 83 05/21/23 00:00 05/20/23 22:45 86 05/21/23 00:11 36.5 C 82 18 136/84 99 05/20/23 23:30 85 26 H 132/88 99 05/20/23 23:00 88 26 H 126/86 98 05/20/23 22:31 88 27 H 125/76 93 05/20/23 22:01 92 H 29 H 153/117 H 97 05/20/23 21:30 91 H 29 H 120/84 96 05/20/23 19:05 103 H 05/20/23 21:00 90 27 H 121/83 98 05/20/23 20:30 90 29 H 121/83 98 05/20/23 20:00 91 H 30 H 122/87 95 05/20/23 19:30 93 H 31 H 134/90 98 05/20/23 19:29 93 H 31 H 142/87 H 99 05/20/23 19:00 32 H 116/84 94 05/20/23 18:57 104 H 39 H 133/91 92 05/20/23 19:05 34 H 88 L 05/20/23 19:00 05/20/23 19:00 05/20/23 19:00 37.1 C 100 H 31 H 133/89 83 L O2 Del Method O2 Flow Rate FiO2 05/21/23 03:38 Nasal Cannula 6 05/21/23 02:25 Nasal Cannula 6 05/21/23 00:05 05/21/23 00:00 Non-rebreather 15 05/20/23 22:45 05/21/23 00:11 Non-rebreather 15 05/20/23 23:30 Non-rebreather 15 05/20/23 23:00 Non-rebreather 15 05/20/23 22:31 Non-rebreather 15 05/20/23 22:01 Non-rebreather 15 05/20/23 21:30 Non-rebreather 15 05/20/23 19:05 05/20/23 21:00 Non-rebreather 15 05/20/23 20:30 Non-rebreather 15 05/20/23 20:00 Non-rebreather 15 05/20/23 19:30 Non-rebreather 15 05/20/23 19:29 Non-rebreather 15 05/20/23 19:00 Non-rebreather 15 05/20/23 18:57 Non-rebreather 15 05/20/23 19:05 High Flow Nasal Cannula 40 100 05/20/23 19:00 Non-rebreather 15 05/20/23 19:00 Non-rebreather 15 05/20/23 19:00 Room Air PG Care Time/CCT Total # of Minutes Spent Total Time Spent with Patient: Total time spent is greater than 50% in coordination of care (as documented) at patient's floor/unit and/or counseling patient: Coding Level of Care Code None Diagnoses Acute postoperative abdominal pain G89.18; R10.9
[2023-05-21 05:34] LABS: Basophils # (auto) 0.01 K/uL (0-0.2); Basophils % (auto) 0.1 %; Hematocrit (blood only) 32.3 % (42.0-52.0); Hemoglobin 10.9 g/dl (14.0-18.0); Immature Granulocytes # (auto) 0.03 K/uL (0.01-0.20); Immature Granulocytes % (auto) 0.3 %; Lymphocytes # (auto) 0.81 K/uL (1.2-3.4); Lymphocytes % (auto) 8.4 %; Mean Corpuscular Hemoglobin 30.5 pg (25.0-34.0); Mean Corpuscular Hgb Conc 33.7 g/dL (32.0-36.0); Mean Corpuscular Volume 90.5 fL (80.0-100.0); Mean Platelet Volume 10.1 fL (9.4-12.4); Monocytes # (auto) 0.51 K/uL (0.11-0.59); Monocytes % (auto) 5.3 %; Neutrophils # (auto) 8.25 K/uL (1.40-6.50); Neutrophils % (auto) 85.9 %; Platelet Count 171 K/uL (130-400); RDW Coefficient of Variation 15.9 % (11.5-14.5); RDW Standard Deviation 53.1 fL (36.4-46.3); Red Blood Count 3.57 M/uL (4.70-6.10); White Blood Count 9.61 K/ul (4.8-10.8)
[2023-05-21 05:52] LABS: Albumin Globulin Ratio 1.1 (0.9-2); BUN Creatinine Ratio 31.8 (10-20); Bilirubin,Total 1.2 mg/dl (0.2-1.0); Calcium 7.8 mg/dl (8.6-10.3); Est GFR (African American) 111.9 ml/min; Est GFR (Non-African American) 96.6 ml/min; Globulin 2.7 gm/dl (2.5-4.0); Magnesium 1.5 mg/dl (1.7-2.4); Potassium 3.8 mmol/L (3.5-5.1); Total Protein 5.7 gm/dl (6.0-8.3)
[2023-05-21 05:58] LABS: Troponin I High Sensitivity 39.1 pg/ml (0-20)
[2023-05-21] MEDS: ALBUT/IPRATROP 3MG/0.5MG NEB 3 ML VIAL NEB SCH ×4 (07:25→19:44)
[2023-05-21] MEDS ORDERED: INSULIN ASPART PER UNIT CHARGE SC SCH ×2 (07:30)
--- NOTE | 2023-05-21 08:23 | Hospitalist Progress Note ---
Date of Service May 21, 2023 Assessment & Plan (1) Acute postoperative abdominal pain: Plan: Patient is status post laparoscopic cholecystectomy for choledocholithiasis and gallstone pancreatitis on 05/16, represents with abdominal pain Imaging suggest fluid collection in the gallbladder fossa concern for postoperative seroma, infection, possible bile leak. Evaluation by surgery recommends conservative management broad-spectrum antibiotics in the way of Zosyn and blood and urine cultures. Patient remains n.p.o. and will be supported with IV fluids and parenteral pain medications at this time Consideration of interventional radiology consultation on 05/22 CT and presentation also commented on previously known splenic infarction (2) Elevated troponin: Plan: Mild elevated troponin without changes on EKG trend troponin does not really reveal a significant rise therefore this is likely demand ischemia from physiological stressors (3) Type 2 diabetes mellitus: Plan: Initial glucose was in poor control remains on basal bolus insulin at this time Typically home metformin (4) HTN (hypertension): Plan: Chronic stable hypertension traditionally on lisinopril 10 Cardiovascular risk prevention with aspirin and Plavix and simvastatin (5) Hypothyroidism: Plan: Chronic and stable remains on Synthroid replacement Plan For constipation patient given dose of MiraLAX therapy Admission and Anticipated Discharge Date Admission Date: May 20, 2023 Subjective Patient complains of feeling constipated. He has significant abdominal discomfort. He is flushed and looks uncomfortable He does not have an acute abdomen but is tender throughout mostly focused in the right upper quadrant Physical Exam Physical Exam: Awake alert appropriate abdominal pain complains of constipation Abdomen shows hypoactive bowel sounds tenderness with some rebound qualities laparoscopic cholecystectomy sites look clean dry and intact Card exam is regular lungs are clear Results & Data Results & Data Vital Signs (Past 12 Hours) Vital Signs Temp Pulse Pulse Resp BP BP Pulse Ox 05/21/23 07:52 97.3 F L 74 18 121/77 96 05/21/23 07:27 70 18 98 05/21/23 06:22 97 05/21/23 03:38 97.9 F 75 18 121/78 96 05/21/23 02:25 97 05/21/23 00:05 83 05/21/23 00:00 05/20/23 22:45 86 05/21/23 00:11 97.7 F 82 18 136/84 99 05/20/23 23:30 85 26 H 132/88 99 05/20/23 23:00 88 26 H 126/86 98 05/20/23 22:31 88 27 H 125/76 93 05/20/23 22:01 92 H 29 H 153/117 H 97 05/20/23 21:30 91 H 29 H 120/84 96 05/20/23 21:00 90 27 H 121/83 98 05/20/23 20:30 90 29 H 121/83 98 O2 Del Method O2 Flow Rate 05/21/23 07:52 Nasal Cannula 3 05/21/23 07:27 Nasal Cannula 4 05/21/23 06:22 Nasal Cannula 4 05/21/23 03:38 Nasal Cannula 6 05/21/23 02:25 Nasal Cannula 6 05/21/23 00:05 05/21/23 00:00 Non-rebreather 15 05/20/23 22:45 05/21/23 00:11 Non-rebreather 15 05/20/23 23:30 Non-rebreather 15 05/20/23 23:00 Non-rebreather 15 05/20/23 22:31 Non-rebreather 15 05/20/23 22:01 Non-rebreather 15 05/20/23 21:30 Non-rebreather 15 05/20/23 21:00 Non-rebreather 15 05/20/23 20:30 Non-rebreather 15 Laboratory Results Reviewed CBC reviewed chemistry reviewed liver function tests PG Care Time/CCT Total # of Minutes Spent Total Time Spent with Patient: Total time spent is greater than 50% in coordination of care (as documented) at patient's floor/unit and/or counseling patient: Coding Level of Care Code 85452 SUB INP/OBS CARE 3/50MIN Diagnoses Acute postoperative abdominal pain G89.18; R10.9 Elevated troponin R77.8 Type 2 diabetes mellitus E11.9 HTN (hypertension) I10 Hypothyroidism E03.9
[2023-05-21] MEDS: CALCITRIOL 0.25 MCG CAPSULE PO SCH (09:39)
[2023-05-21] MEDS: TAMSULOSIN HCL 0.4 MG CAP PO SCH (09:39)
--- NOTE | 2023-05-21 09:43 | Post Operative Brief Note ---
Immediate Post Op Note v1 Date of Surgery May 21, 2023 I identified the patient and participated in the time-out.: Yes Surgeon Harry Capps MD, FACS
--- NOTE | 2023-05-21 10:16 | XCELERA ---
[id number]
[2023-05-21] MEDS: PANTOprazole 40 MG in SYRINGE 0 ML IV SCH (11:49)
[2023-05-21] MEDS ORDERED: POLYETHYLENE (MIRALAX) 17 GM PACK PO ONE (14:36)
[2023-05-21] MEDS: FLUoxetine HCL 20 MG CAP PO SCH (20:11)
[2023-05-22] MEDS: INSULIN ASPART PER UNIT CHARGE SC SCH ×6 (00:01→20:33)
[2023-05-22] MEDS: NSS + 20MEQ KCL 20 MEQ/1,000 ML BAG IV SCH ×2 (01:00→13:49)
[2023-05-22] MEDS: PIPERACILLIN/TAZOBACTAM 4.5 GM in DEXTROSE 5% 100 ML IV SCH ×3 (01:00→18:04)
[2023-05-22 06:00] LABS: Basophils # (auto) 0.01 K/uL (0-0.2); Basophils % (auto) 0.1 %; Eosinophils # (auto) 0.07 K/uL (0-0.50); Hematocrit (blood only) 32.2 % (42.0-52.0); Hemoglobin 10.6 g/dl (14.0-18.0); Immature Granulocytes # (auto) 0.04 K/uL (0.01-0.20); Immature Granulocytes % (auto) 0.5 %; Lymphocytes % (auto) 8.2 %; Mean Corpuscular Hemoglobin 30.6 pg (25.0-34.0); Mean Corpuscular Hgb Conc 32.9 g/dL (32.0-36.0); Mean Corpuscular Volume 93.1 fL (80.0-100.0); Mean Platelet Volume 10.1 fL (9.4-12.4); Monocytes # (auto) 0.45 K/uL (0.11-0.59); Monocytes % (auto) 6.2 %; Neutrophils # (auto) 6.12 K/uL (1.40-6.50); Platelet Count 161 K/uL (130-400); RDW Coefficient of Variation 15.9 % (11.5-14.5); Red Blood Count 3.46 M/uL (4.70-6.10); White Blood Count 7.29 K/ul (4.8-10.8)
[2023-05-22 06:18] LABS: Albumin Level 2.7 gm/dl (3.4-5.0); BUN Creatinine Ratio 18.9 (10-20); Bilirubin,Total 1.1 mg/dl (0.2-1.0); Calcium 7.7 mg/dl (8.6-10.3); Creatinine Clr Calc Pharmacy 81.4 ml/min; Est GFR (African American) 98.5 ml/min; Globulin 2.6 gm/dl (2.5-4.0); Magnesium 1.6 mg/dl (1.7-2.4); Potassium 4.2 mmol/L (3.5-5.1); Total Protein 5.3 gm/dl (6.0-8.3)
[2023-05-22] MEDS: LEVOTHYROXINE SODIUM 88 MCG TABLET PO SCH (06:46)
[2023-05-22] MEDS: ALBUT/IPRATROP 3MG/0.5MG NEB 3 ML VIAL NEB SCH ×4 (07:46→19:49)
--- NOTE | 2023-05-22 07:52 | Surgery Progress Note ---
Date of Service May 22, 2023 Assessment & Plan (1) Abscess, intra-abdominal, postoperative: Plan: This point we will start the patient on oral intake Hopefully the patient will get a HIDA scan this morning is apparently this test is not done over the week Admission and Anticipated Discharge Date Admission Date: May 20, 2023 Subjective Feels better overall but still has some right-sided discomfort No nausea has been kept n.p.o. Physical Exam Physical Exam: Alert coherent resting comfortably The sclera is nonicteric Oral mucosa moist The abdomen is soft except guarding and palpable fullness lateral right upper quadrant Results & Data Vital Signs (Past 12 Hours) Vital Signs Temp Pulse Pulse Resp BP Pulse Ox O2 Del Method 05/22/23 07:46 53 L 12 94 Room Air 05/22/23 07:28 36.6 C 58 L 19 126/71 95 Nasal Cannula 05/22/23 06:40 52 L 05/22/23 03:43 36.4 C L 60 18 120/69 95 Room Air 05/21/23 23:00 55 L 05/21/23 23:38 36.6 C 62 20 122/62 95 Room Air O2 Flow Rate FiO2 05/22/23 07:46 21 05/22/23 07:28 3 05/22/23 06:40 05/22/23 03:43 05/21/23 23:00 05/21/23 23:38
--- NOTE | 2023-05-22 07:54 | Hospitalist Progress Note ---
Date of Service May 22, 2023 Assessment & Plan (1) Acute postoperative abdominal pain: Plan: Patient is status post laparoscopic cholecystectomy for choledocholithiasis and gallstone pancreatitis on 05/16, represents with abdominal pain Imaging suggest fluid collection in the gallbladder fossa concern for postoperative seroma, infection, bile leak has been ruled out by nuclear medicine scan Surgeries advance diet and endorses continuation of Zosyn blood cultures are negative to date CT and presentation also commented on previously known splenic infarction (2) Elevated troponin: Plan: Mild elevated troponin without changes on EKG trend troponin does not really reveal a significant rise therefore this is likely demand ischemia from physiological stressors Echo shows preserved EF, no RWMA, dialated aortic root to 4.9 will need follow up (3) Type 2 diabetes mellitus: Plan: Initial glucose was in poor control remains on basal bolus insulin at this time Typically home metformin (4) HTN (hypertension): Plan: Chronic stable hypertension traditionally on lisinopril 10 Cardiovascular risk prevention with aspirin and Plavix and simvastatin these are currently on hold will likely resume at discharge (5) Hypothyroidism: Plan: Chronic and stable remains on Synthroid replacement Plan For constipation patient given dose of MiraLAX therapy Admission and Anticipated Discharge Date Admission Date: May 20, 2023 Subjective Patient seen in presence of daughter. Patient's improve dramatically. Patient has less abdominal pain significantly. Put on a for liquid diet by surgery. Physical Exam Physical Exam: Awake alert appropriate abdominal pain complains of constipation Abdomen shows normoactive bowel sounds. Surgical sites intact. His pain is much less than 1 day prior Card exam is regular lungs are clear Results & Data Results & Data Vital Signs (Past 12 Hours) Vital Signs Temp Pulse Pulse Resp BP Pulse Ox O2 Del Method 05/22/23 07:46 53 L 12 94 Room Air 05/22/23 07:28 97.9 F 58 L 19 126/71 95 Nasal Cannula 05/22/23 06:40 52 L 05/22/23 03:43 97.5 F L 60 18 120/69 95 Room Air 05/21/23 23:00 55 L 05/21/23 23:38 97.9 F 62 20 122/62 95 Room Air O2 Flow Rate FiO2 05/22/23 07:46 21 05/22/23 07:28 3 05/22/23 06:40 05/22/23 03:43 05/21/23 23:00 05/21/23 23:38 Laboratory Results Reviewed CBC reviewed chemistry Diagnostic Findings Nuclear biliary scan does not show any evidence of bile leak PG Care Time/CCT Total # of Minutes Spent Total Time Spent with Patient: Total time spent is greater than 50% in coordination of care (as documented) at patient's floor/unit and/or counseling patient: Coding Level of Care Code 33960 SUB INP/OBS CARE 3/50MIN Diagnoses Acute postoperative abdominal pain G89.18; R10.9 Elevated troponin R77.8 Type 2 diabetes mellitus E11.9 HTN (hypertension) I10 Hypothyroidism E03.9
--- NOTE | 2023-05-22 09:37 | Nuclear Medicine Report ---
NUCLEAR HEPATOBILIARY SCAN CLINICAL HISTORY: Status post cholecystectomy. Assess for bile leak. COMPARISON STUDY: Abdominal CT dated 05/20/2023. TECHNIQUE: Dynamic images of the liver and anterior abdomen were obtained every 5 minutes for a total of 30 minutes following the IV administration of 4.9 mCi of technetium 99m Mebrofenin. Additional st atic image was acquired at 15 minutes. FINDINGS: The hepatobiliary scan shows prompt and homogeneous hepatic uptake. There is visualized act ivity within the intra and extrahepatic biliary tree at 10 minutes. There is normal biliary to bowel transit, with small bowel visualized by 15 minutes. There is no abnormal tracer within the gallbladd er fossa to suggest bile leak.. IMPRESSION: There is no scintigraphic evidence of bile leak. ACT 112: Negative or not required by law. Electronically signed by: Stephen Devlin M.D. 05/22/2023 9:36 AM
[2023-05-22] MEDS: CALCITRIOL 0.25 MCG CAPSULE PO SCH (09:40)
[2023-05-22] MEDS: MAGNESIUM SULFATE / D5W 1 GM/100 ML BAG IV SCH ×2 (09:45→11:25)
[2023-05-22] MEDS: TAMSULOSIN HCL 0.4 MG CAP PO SCH (10:46)
[2023-05-22] MEDS: PANTOprazole 40 MG in SYRINGE 0 ML IV SCH (12:46)
[2023-05-22] MEDS ORDERED: Nursing to Pharmacy Communication SCH (16:30)
[2023-05-22] MEDS: FLUoxetine HCL 20 MG CAP PO SCH (20:32)
[2023-05-23] MEDS: PIPERACILLIN/TAZOBACTAM 4.5 GM in DEXTROSE 5% 100 ML IV SCH ×3 (02:27→18:10)
[2023-05-23] MEDS: LEVOTHYROXINE SODIUM 88 MCG TABLET PO SCH (05:37)
[2023-05-23 07:02] LABS: Basophils # (auto) 0.03 K/uL (0-0.2); Basophils % (auto) 0.4 %; Eosinophils # (auto) 0.13 K/uL (0-0.50); Eosinophils % (auto) 1.7 %; Hematocrit (blood only) 30.1 % (42.0-52.0); Hemoglobin 10.2 g/dl (14.0-18.0); Immature Granulocytes # (auto) 0.08 K/uL (0.01-0.20); Lymphocytes # (auto) 0.77 K/uL (1.2-3.4); Lymphocytes % (auto) 9.9 %; Mean Corpuscular Hemoglobin 30.3 pg (25.0-34.0); Mean Corpuscular Hgb Conc 33.9 g/dL (32.0-36.0); Mean Corpuscular Volume 89.3 fL (80.0-100.0); Monocytes % (auto) 6.5 %; Neutrophils # (auto) 6.23 K/uL (1.40-6.50); Neutrophils % (auto) 80.5 %; Platelet Count 194 K/uL (130-400); RDW Coefficient of Variation 15.7 % (11.5-14.5); RDW Standard Deviation 51.1 fL (36.4-46.3); Red Blood Count 3.37 M/uL (4.70-6.10); White Blood Count 7.74 K/ul (4.8-10.8)
[2023-05-23] MEDS: ALBUT/IPRATROP 3MG/0.5MG NEB 3 ML VIAL NEB SCH (07:09)
[2023-05-23 07:16] LABS: Albumin Level 2.6 gm/dl (3.4-5.0); BUN Creatinine Ratio 18.6 (10-20); Bilirubin,Total 0.9 mg/dl (0.2-1.0); Calcium 7.5 mg/dl (8.6-10.3); Creatinine Clr Calc Pharmacy 124.2 ml/min; Est GFR (African American) 117.2 ml/min; Est GFR (Non-African American) 101.1 ml/min; Globulin 2.7 gm/dl (2.5-4.0); Magnesium 1.7 mg/dl (1.7-2.4); Potassium 3.5 mmol/L (3.5-5.1); Total Protein 5.3 gm/dl (6.0-8.3)
--- NOTE | 2023-05-23 07:41 | Electrocardiogram Report ---
Test Reason : Blood Pressure : / mmHG Vent. Rate : 100 BPM Atrial Rate : 100 BPM P-R Int : 166 ms QRS Dur : 106 ms QT Int : 360 ms P-R-T Axes : 011 -49 068 degrees QTc Int : 464 ms Poor data quality, interpretation may be adversely affected Normal sinus rhythm Left anterior fascicular block Minimal voltage criteria for LVH, may be normal variant ( [place] product ) Nonspecific ST and T wave abnormality Abnormal ECG When compared with ECG of 31-JUL-2022 14:11, Vent. rate has increased BY 35 BPM QT has lengthened Confirmed by Jh Deutsch ([id number]) on 05/23/2023 7:40:26 AM Referred By: REFERRED SELF Confirmed By:Jh Deutsch
--- NOTE | 2023-05-23 08:11 | Hospitalist Progress Note ---
Date of Service May 23, 2023 Assessment & Plan (1) Acute postoperative abdominal pain: Plan: Patient is status post laparoscopic cholecystectomy for choledocholithiasis and gallstone pancreatitis on 05/16, represents with abdominal pain concern for GB fossa infection Imaging suggest fluid collection in the gallbladder fossa concern for postoperative seroma, infection, bile leak has been ruled out by nuclear medicine scan Surgeries advance diet and endorses continuation of Zosyn blood cultures are negative to date CT and presentation also commented on previously known splenic infarction, repeat CT shows gas and fluid containing collection in the gallbladder fossa, [facility],not defined abscess formation, spoke to surgery and are comfortable with watchful waiting continuing antibiotics, family is aware of plan. Acute respiratory failure with hypoxia treated and resolved (2) Elevated troponin: Plan: Mild elevated troponin without changes on EKG trend troponin does not really reveal a significant rise therefore this is likely demand ischemia from physiological stressors Echo shows preserved EF, no RWMA, dialated aortic root to 4.9 will need follow up (3) Type 2 diabetes mellitus: Plan: Initial glucose was in poor control remains on basal bolus insulin at this time Typically home metformin (4) HTN (hypertension): Plan: Chronic stable hypertension traditionally on lisinopril 10 Cardiovascular risk prevention with aspirin and Plavix and simvastatin these are currently on hold will likely resume at discharge (5) Hypothyroidism: Plan: Chronic and stable remains on Synthroid replacement Admission and Anticipated Discharge Date Admission Date: May 20, 2023 Subjective this pt is mildly confused, but family says is close to baseline, spoke to surgery, will have watchful waiting still some right upper quadrant pain Physical Exam Physical Exam: Awake alert appropriate abdominal pain complains of constipation Abdomen shows normoactive bowel sounds. Surgical sites intact. His pain is much less than 1 day prior, but still present Card exam is regular lungs are clear Results & Data Results & Data Vital Signs (Past 12 Hours) Vital Signs Temp Pulse Pulse Resp BP Pulse Ox O2 Del Method 05/23/23 08:03 98.2 F 55 L 16 124/69 95 Room Air 05/23/23 07:09 56 L 16 96 Room Air 05/23/23 03:00 98.1 F 57 L 18 120/68 95 Room Air 05/22/23 23:00 98.1 F 62 18 116/66 94 Room Air Laboratory Results review cbc reviewed chemistry PG Care Time/CCT Total # of Minutes Spent Total Time Spent with Patient: Total time spent is greater than 50% in coordination of care (as documented) at patient's floor/unit and/or counseling patient: Coding Level of Care Code 99774 SUB INP/OBS CARE 350MIN Diagnoses Acute postoperative abdominal pain G89.18; R10.9 Elevated troponin R77.8 Type 2 diabetes mellitus E11.9 HTN (hypertension) I10 Hypothyroidism E03.9
--- NOTE | 2023-05-23 08:48 | Electrocardiogram Report ---
Test Reason : Blood Pressure : / mmHG Vent. Rate : 061 BPM Atrial Rate : 061 BPM P-R Int : 178 ms QRS Dur : 114 ms QT Int : 430 ms P-R-T Axes : 025 -42 -27 degrees QTc Int : 432 ms Normal sinus rhythm Left axis deviation Abnormal ECG When compared with ECG of 20-MAY-2023 18:55, Vent. rate has decreased BY 39 BPM T wave inversion now evident in Inferior leads Confirmed by Salbador Salgado ([id number]) on 05/23/2023 8:48:03 AM Referred By: REFERRED SELF Confirmed By:Salbador Salgado
[2023-05-23] MEDS: INSULIN ASPART PER UNIT CHARGE SC SCH ×4 (08:55→20:45)
[2023-05-23] MEDS: TAMSULOSIN HCL 0.4 MG CAP PO SCH (08:59)
[2023-05-23] MEDS: CALCITRIOL 0.25 MCG CAPSULE PO SCH (08:59)
[2023-05-23] MEDS: PANTOprazole 40 MG in SYRINGE 0 ML IV SCH (10:46)
--- NOTE | 2023-05-23 10:47 | CT Scan Report ---
CT SCAN OF THE CHEST WITHOUT IV CONTRAST CLINICAL HISTORY: Dyspnea. COMPARISON STUDY: Chest CT dated 04/10/2023. Chest x-ray dated 05/20/2023. Abdominal CT dated 3. TECHNIQUE: CT scan of the thorax was performed from the thoracic inlet to the upper abdomen. Images are reviewed in the axial, sagittal, and coronal planes. IV contrast was not administered for this ex amination as per the referring clinician. A dose lowering technique was utilized adhering to the wesley [facility]. CT DOSE: 501.87 mGy.cm FINDINGS: Thyroid: Atrophic. Thoracic aorta: There is atherosclerotic calcification of the thoracic aorta. There is ectasia of the aortic root which measures 4.9 cm. There is mild aneurysmal dilatation of the ascending thoracic aor ta which measures up to 4.2 cm diameter. The remainder of the thoracic aorta is normal in caliber and the arch demonstrates 4-vessel variant anatomy. Heart: The heart is enlarged and without pericardial effusion. The pulmonary trunk is dilated measuri ng up to 3.5 cm diameter. This suggests pulmonary artery hypertension. The coronary arteries and aort ic valve leaflets are densely calcified. There is diminished attenuation of the cardiac blood pool as compared to the myocardium suggesting anemia. Lungs and pleural spaces: There is a small right pleural effusion with basilar atelectasis. Trace ple ural effusion is seen on the left. The trachea and central airways are clear. A 5 mm pleural-based no dule the left lung base on image #166 and a 3 mm right lower lobe nodule on image number #33 are unch anged. There are scattered calcified granulomas. Mediastinum: There is no mediastinal lymphadenopathy. Kathy: Not well assessed without IV contrast. Axillae: Surgical clips are noted in the left axilla. There is no axillary lymphadenopathy. Upper abdomen: There is perihepatic fluid. Pneumobilia is seen in the left lobe of liver. The gallbla dder is surgically absent. A gas and fluid containing collection is partially visualized in the gallb ladder fossa. The proximal end of a common bile duct stent is partially visualized. A small hiatal he rnia is noted. Skeletal structures: The skull structures are osteopenic. No lytic or blastic bony lesions are seen. There are chronic/healed right posterior rib fractures. Degenerative change is noted in the shoulders and spine. IMPRESSION: 1. Cardiomegaly. 2. Small right and trace left pleural effusions with dependent atelectasis. 3. Ectasia of the aortic root and mild aneurysmal dilatation of the ascending thoracic aorta is simil ar to previous. See above. 4. A gas and fluid containing collection in the gallbladder fossa is partially visualized, and there is increasing perihepatic fluid around the right lobe as compared to the 05/20/2023 examination. The s terility of this fluid cannot be assessed by imaging and abscess is not excluded. A bile leak is not excluded, especially given the increasing perihepatic fluid. 5. A common bile duct stent is partially visualized. Pneumobilia suggests patency of the stent. 6. Additional findings as above. ACT 112: Negative or not required by law. Electronically signed by: Stephen Devlin M.D. 05/23/2023 10:46 AM
[2023-05-23] MEDS ORDERED: Nursing to Pharmacy Communication SCH ×2 (11:45→17:45)
--- NOTE | 2023-05-23 11:45 | Surgery Progress Note ---
Date of Service May 23, 2023 Assessment & Plan (1) Abscess, intra-abdominal, postoperative: Plan: Patient here s/p lap [place] on 05/16 with abdominal pain Today labs show WBC 7 and LFTs within normal limits HIDA scan obtained yesterday negative for bile leak CT chest today showed increasing fluid collection in the RUQ Hospitalists to speak w/ tertiary center for possible IR drainage as they are not available here Otherwise would continue IV abx and monitoring Admission and Anticipated Discharge Date Admission Date: May 20, 2023 Supervising Physician Co-Signing Physician Notes I personally saw and evaluated the patient with Diana Laguerre PA-C and agree with the assessment and plan. 72-year-old male postoperative day 7 laparoscopic cholecystectomy with concern for postoperative intra-abdominal infection He certainly has a collection with air in it in the gallbladder fossa and right abdomen with tenderness there could certainly be an infection We will continue his IV antibiotics and reach out to interventional radiology at a tertiary center to see if they can look at the images to see if they can drain this percutaneously Otherwise he is completely stable hemodynamically/clinically and you can advance his diet as tolerated A bile leak has been ruled out with a HIDA scan We will continue to follow Subjective Patient says he is feeling okay, however is tender in the RUQ. Reports he was previously tolerating a diet okay and has been having + bowel function. Physical Exam Physical Exam: awake and in no distress Respiratory: normal respiratory effort Gastrointestinal (Abdomen): Inspection/Auscultation: + abdominal surgical incision (c/d/i no signs of infection) Percussion/Palpation: + abdomen tender (ttp in the RUQ) and abdomen soft Results & Data Vital Signs (Past 12 Hours) Vital Signs Temp Pulse Pulse Pulse Resp BP Pulse Ox 05/23/23 11:33 37.0 C 60 18 110/69 93 05/23/23 08:03 36.8 C 55 L 16 124/69 95 05/23/23 07:57 56 L 05/23/23 07:09 56 L 16 96 05/23/23 03:00 36.7 C 57 L 18 120/68 95 O2 Del Method 05/23/23 11:33 Room Air 05/23/23 08:03 Room Air 05/23/23 07:57 05/23/23 07:09 Room Air 05/23/23 03:00 Room Air PG Care Time/CCT Total # of Minutes Spent Total Time Spent with Patient: Total time spent is greater than 50% in coordination of care (as documented) at patient's floor/unit and/or counseling patient: Coding Level of Care Code None Diagnoses Abscess, intra-abdominal, postoperative T81.43XA
[2023-05-23] MEDS ORDERED: INSULIN ASPART PER UNIT CHARGE SC SCH ×2 (12:00→21:00)
[2023-05-23] MEDS: FLUoxetine HCL 20 MG CAP PO SCH (20:47)
[2023-05-24] MEDS: PIPERACILLIN/TAZOBACTAM 4.5 GM in DEXTROSE 5% 100 ML IV SCH ×3 (01:40→10:32)
[2023-05-24] MEDS: LEVOTHYROXINE SODIUM 88 MCG TABLET PO SCH (06:08)
[2023-05-24 06:39] LABS: Hemoglobin 11.2 g/dl (14.0-18.0); Mean Corpuscular Hemoglobin 30.1 pg (25.0-34.0); Mean Corpuscular Hgb Conc 32.9 g/dL (32.0-36.0); Mean Corpuscular Volume 91.4 fL (80.0-100.0); Mean Platelet Volume 9.8 fL (9.4-12.4); Platelet Count 230 K/uL (130-400); RDW Coefficient of Variation 15.3 % (11.5-14.5); RDW Standard Deviation 51.2 fL (36.4-46.3); Red Blood Count 3.72 M/uL (4.70-6.10); White Blood Count 7.84 K/ul (4.8-10.8)
[2023-05-24 06:56] LABS: Albumin Globulin Ratio 0.9 (0.9-2); Albumin Level 2.7 gm/dl (3.4-5.0); Bilirubin,Total 0.8 mg/dl (0.2-1.0); Calcium 7.8 mg/dl (8.6-10.3); Creatinine Clr Calc Pharmacy 84.2 ml/min; Est GFR (African American) 99.9 ml/min; Est GFR (Non-African American) 86.2 ml/min; Globulin 2.9 gm/dl (2.5-4.0); Potassium 3.6 mmol/L (3.5-5.1); Total Protein 5.6 gm/dl (6.0-8.3)
[2023-05-24] MEDS: INSULIN ASPART PER UNIT CHARGE SC SCH ×2 (07:58→12:16)
--- NOTE | 2023-05-24 07:59 | Surgery Progress Note ---
Date of Service May 24, 2023 Assessment & Plan (1) Abscess, intra-abdominal, postoperative: Plan: Patient here s/p lap [place] on 05/16 with abdominal pain Today labs show WBC 7.8. vitals stable CT chest showed increase in RUQ collection, Hospitalists to speak w/ tertiary center [facility] for possible IR drainage as they are not available here If no plans for transfer he may stay here and continue on IV abx while in house Will see how he fairs with diet advancement and monitoring HIDA negative for bile leak Admission and Anticipated Discharge Date Admission Date: May 20, 2023 Supervising Physician Co-Signing Physician Notes I personally saw and evaluated the patient with Diana Laguerre PA-C and agree with the assessment and plan. 72-year-old male postoperative day 8 laparoscopic cholecystectomy with concern for postoperative intra-abdominal infection He is improved clinically and tolerating a heart healthy diet He still some tenderness in the right abdomen but remains without fever or leukocytosis He is stable to be discharged from a surgical standpoint with p.o. antibiotics and I will see him next week for follow-up to keep a close eye on his clinical progress Surgery will sign off at this time, please call with any questions or concerns Subjective Patient offers no complaints. Denies abdominal pain,nausea,vomiting, fevers. Doesn't have much hunger, but willing to try this AM. Passing small amount of gas. Physical Exam Physical Exam: awake, no distress Respiratory: normal respiratory effort Gastrointestinal (Abdomen): Inspection/Auscultation: + abdominal surgical incision (c/d/i, some mild redness at belly button incision, no drainage); abdomen not distended Percussion/Palpation: + abdomen tender (some RUQ ttp ) and abdomen soft Results & Data Vital Signs (Past 12 Hours) Vital Signs Temp Pulse Pulse Resp BP BP Pulse Ox 05/24/23 07:05 58 L 05/24/23 07:04 36.8 C 78 17 138/76 96 05/24/23 03:00 37.0 C 58 L 16 136/70 95 05/23/23 22:55 36.4 C L 56 L 20 138/72 96 05/23/23 22:47 58 L 05/23/23 21:27 O2 Del Method 05/24/23 07:05 05/24/23 07:04 Room Air 05/24/23 03:00 Room Air 05/23/23 22:55 Room Air 05/23/23 22:47 05/23/23 21:27 Room Air PG Care Time/CCT Total # of Minutes Spent Total Time Spent with Patient: Total time spent is greater than 50% in coordination of care (as documented) at patient's floor/unit and/or counseling patient: Coding Level of Care Code None Diagnoses Abscess, intra-abdominal, postoperative T81.43XA
[2023-05-24] MEDS: TAMSULOSIN HCL 0.4 MG CAP PO SCH (09:22)
[2023-05-24] MEDS: CALCITRIOL 0.25 MCG CAPSULE PO SCH (09:22)
[2023-05-24] MEDS: PANTOprazole 40 MG in SYRINGE 0 ML IV SCH (10:33)
--- NOTE | 2023-05-24 16:46 | Communication Note ---
Date of Service: May 24, 2023 I was informed that as patient was getting ready to be discharged there was some purulent drainage noted from his laparoscopic epigastric incision. I was able to probe and open up the wound with a q-tip and expressed a small amount of purulent drainage. I then lightly packed it with a corner of kerlex gauze, covered with dry 4x4 gauze, and tegaderm tape. Informed patient and family to remove this dressing/packing on Monday05/26/23. Then they may change dressing daily with dry gauze and medipore tape until healed. He is being sent home on oral augmentin for 10 days which should cover him for this. He has follow up in the office scheduled with Dr. Pickering for June 01. Encouraged patient to keep this appointment. If he notices any worsening redness of his incisions or new drainage, fevers/chills, etc he is to call the office sooner for further recommendations. Patient and family agreeable and comfortable with the plan. He is to be discharged to home today.
--- NOTE | 2023-05-24 18:20 | Discharge Summary ---
Date of Service May 24, 2023 Admission HPI Per Admitting Provider The patient is a 72-year-old male with past medical history significant for esophageal dysphagia, diabetes mellitus, history of CVA, depression, splenic infarct, gallstone pancreatitis, umbilical hernia, hypothyroidism and hypertension. He was admitted to [facility] from 03/31-04/14/2023 for gallstone pancreatitis with 2 new splenic infarcts, ileus and had placement of a biliary stent. During that admission he also underwent ERCP and had stones removed from his common bile duct. He was then discharged on 10 days of Augmentin, with surgical follow-up in the outpatient setting, and then underwent a laparoscopic cholecystectomy and open umbilical hernia repair on 05/16/2023. The patient as noted above has had abdominal pain, nausea without vomiting, shortness of breath, decreased oral intake and generally feeling unwell. CT of abdomen and pelvis scan in the emergency department today: Possible bile duct injury, postsurgical infection, evidence of previous pancreatitis, and evidence of previous splenic infarcts. Significant abnormal laboratories: WBC 10.47, glucose 244, troponin 38.4, total bilirubin 1.6 From the ED the patient received the following: Normal saline 500 mL, then at 125 mils per hour. Zofran 4 mg IV, DuoNeb, Zosyn 4.5 g IV and fentanyl 50 mcg IV. Patient was assessed by surgery in the emergency department, and felt that the patient would be best served by medical admission, and quieting the patient down, and then reassessment for any possible surgical needs. Principal Diagnosis Post laparoscopic cholecystectomy gallbladder fossa infection and seroma Discharge Exam Awake alert appropriate abdominal pain complains of constipation Abdomen shows normoactive bowel sounds. Surgical sites intact. His pain is much less, but still present Card exam is regular lungs are clear Discharge Data Allergies Allergy/AdvReac Type Severity Reaction Status Date / Time No Known Allergies Allergy Verified 05/16/23 05:35 Consultations 05/20/23 20:14 ED Decision to Admit Stat 05/21/23 21:31 Consult General Surgery Routine Ordered Studies 05/20/23 19:05 CT abd pelvis IV con only Stat 05/23/23 10:02 CT chest diagnostic wo con Routine Hospital Course (1) Acute postoperative abdominal pain: Patient is status post laparoscopic cholecystectomy for choledocholithiasis and gallstone pancreatitis on 05/16, with abdominal pain concern for GB fossa infection Imaging suggest fluid collection in the gallbladder fossa concern for postoperative seroma, infection, bile leak has been ruled out by nuclear medicine scan Surgeries endorses discharge and outpatient antibiotics with outpatient follow- up blood cultures are negative to date CT and presentation also commented on previously known splenic infarction, repeat CT shows gas and fluid containing collection in the gallbladder fossa, spoke to Wendy BARRETT,not defined abscess formation, spoke to surgery and are comfortable with watchful waiting continuing antibiotics, family is aware of plan. Acute respiratory failure with hypoxia treated and resolved (2) Elevated troponin: Mild elevated troponin without changes on EKG trend troponin does not really reveal a significant rise therefore this is likely demand ischemia from physiological stressors Echo shows preserved EF, no RWMA, dialated aortic root to 4.9 will need follow up (3) Type 2 diabetes mellitus: Initial glucose was in poor control remains on basal bolus insulin at this time Resume outpatient metformin (4) HTN (hypertension): Chronic stable hypertension traditionally on lisinopril 10 this is discontinued at time of discharge will require blood pressure surveillance as an outpatient Cardiovascular risk prevention with aspirin and Plavix and simvastatin (5) Hypothyroidism: Chronic and stable remains on Synthroid replacement Total Time Total Time Spent Total Time Spent (In Minutes): It required greater than 30 minutes to prepare this patient for discharge Discharge Plan Discharge Items Patient Disposition: Home - Self-Care Reason For Visit: ELEV TROPONIN, INTRA-ABDOMINAL INFECTION, HYPOXIA Discharge Diagnosis: Postoperative infection after gallbladder removal Elevation of troponin felt to be demand ischemia Activity: Per Instructions section Activity Comment: Gradually increase activity no strenuous exercise until released by surgery Non-emergency contact: Primary Care Provider and Surgeon Call non-emergency contact if: your symptoms worsen Follow-up/Referrals: Deepak Pickering DO [Physician] - 06/01/23 1:00 pm (June 01 at 1:00 PM follow up with general surgery) Juanita Morgan MD [Primary Care Provider] - (Dr. Rani Neumann MondayJune 02 at 2:25PM [address], [place] [address]) Diet: Heart Healthy Addtl Attending Provider Instructions: Continue take your antibiotics until you see your surgery physician follow-up Follow typical postoperative instructions as listed on your previous discharge such as no strenuous exercise no submersion bathing Use pain medicine cautiously Pending Studies at Discharge: No Stand-Alone Forms: My [employer], Smoking Cessation Medications and DC Order Prescriptions: New amoxicillin-pot clavulanate 875-125 mg tablet 1 tab PO BID Qty: 20 0RF Continued clopidogrel 75 mg tablet 75 mg PO QAM Hold Instructions: Resume on 05/19/23. Patient Comments: has holding instructions metformin 500 mg tablet 1,000 mg PO BID Rx Instructions: per daughter she isn't sure if its a full 1000mg daily aspirin 81 mg Tablet,Delayed Release (Dr/Ec) 81 mg PO DAILY simvastatin 40 mg tablet 40 mg PO DAILY levothyroxine [Synthroid] 88 mcg tablet 88 mcg PO QAM tamsulosin 0.4 mg capsule 0.4 mg PO DAILY magnesium oxide 400 mg magnesium Tablet 400 mg PO BID calcitriol 0.25 mcg Capsule 0.25 mcg PO QAM Qty: 30 0RF (DME) OneTouch Verio test strips Strip See Rx Instructions .Route Qty: 25 2RF Rx Instructions: to test blood glucose once per day (DME) lancets [OneTouch Delica Lancets] 33 gauge misc See Rx Instructions .Route Qty: 100 0RF Rx Instructions: to test blood glucose once daily nitroglycerin 0.3 mg tablet, sublingual 0.3 mg sublingual DAILY polyethylene glycol 3350 [Miralax] 17 gram powder in packet 0 g PO DAILY PRN (Reason: constipation) Rx Instructions: OTC Per daughter surgeons said to hold off on giving him any doses. fluoxetine 40 mg capsule 40 mg PO HS pantoprazole 40 mg tablet,delayed release (DR/EC) 40 mg PO QAM Vitamin D3 Complete 18 mg iron-800 mcg-150 mg Tablet 1 tab PO DAILY Patient Comments: + vitamin c oxycodone 5 mg tablet 5 - 10 mg PO .[id number] PRN (Reason: pain, for initial therapy, max 6 tabs per day) Qty: 15 0RF Discontinued lisinopril 10 mg tablet 0 mg PO QAM Patient Comments: per daughter, this is currently on hold. Rx Instructions: per daughter, this is currently on hold. Discharge Orders: Discharge Order (Routine); Ordered 05/24/23 Ordered By: Mynor Broussard/Other Patient Handouts: Your Diabetes Healthcare Team, Long-Term Complications of Diabetes, Managing Type 2 Diabetes, Preventing Pressure Injuries, Surg Site Prevent Infection Admission Data Admit Date/Time: 05/20/23 22:34 Attending Provider: Mynor Branham Admit Provider: Devan Stewart Primary Care Provider: Juanita Morgan Other Providers: Devan Stewart ; Harry Capps ; [facility] Other Interventions: Discharge Summary Assessment (RN) Last Done: 05/24/23 14:59 Coding Level of Care Code 12773 INP/OBS DISCH >30 MIN Diagnoses Acute postoperative abdominal pain G89.18; R10.9 Elevated troponin R77.8 Type 2 diabetes mellitus E11.9 HTN (hypertension) I10 Hypothyroidism E03.9
== END 2023-05-24 17:00 | disposition home health service (06) | DRG 862 ==
LOC: ED 18:49 → SUATTDRO 22:34 → 2S 22:34

== ENCOUNTER 2023-07-09 20:03 | Observation (INO) ==
[2023-07-09] MEDS ORDERED: SODIUM CHLORIDE 0.9% 1000ML 1,000 ML IV SCH (22:00)
[2023-07-09] MEDS ORDERED: SODIUM CHLORIDE 0.9% 1000ML 500 ML IV ONE (22:00)
[2023-07-09 22:23] LABS: Albumin Globulin Ratio 1.3 (0.9-2); Albumin Level 4.1 gm/dl (3.4-5.0); BUN Creatinine Ratio 21.1 (10-20); Bilirubin,Total 0.8 mg/dl (0.2-1.0); Calcium 9.5 mg/dl (8.6-10.3); Creatinine Clr Calc Pharmacy 94.3 ml/min; Est GFR (African American) 104.9 ml/min; Est GFR (Non-African American) 90.5 ml/min; Globulin 3.2 gm/dl (2.5-4.0); Magnesium 1.4 mg/dl (1.7-2.4); Potassium 4.2 mmol/L (3.5-5.1); Total Protein 7.3 gm/dl (6.0-8.3)
--- NOTE | 2023-07-09 22:41 | CT Scan Report ---
Exam(s): CT HEAD Without Contrast EXAM: CT Head Without Intravenous Contrast CLINICAL HISTORY: Reason for exam: dizzy, off balance x 2 days. TECHNIQUE: Axial computed tomography images of the head/brain without intravenous contrast. CTDI is 37.78 mGy and DLP is 625.8 mGy-cm. Automated exposure control was utilized for the study. A dose lowering technique was utilized adhering to the principles of ALARA. COMPARISON: Head CT 03/31/2023 FINDINGS: Brain: No intracranial hemorrhage, mass-effect, or cerebral edema. Chronic infarcts within the cerebellum and left thalamus. Ventricles: Unremarkable. Bones/joints: Unremarkable. No fracture. Soft tissues: Unremarkable. Sinuses: No acute sinusitis. Mastoid air cells: Unremarkable as visualized. IMPRESSION: 1. No acute intracranial abnormality. 2. Chronic infarcts within the cerebellum and left thalamus. Electronically signed by: Kamlesh Velasquez MD 07/09/23 22:40 PM
[2023-07-09] MEDS: MAGNESIUM SULFATE / D5W 1 GM/100 ML BAG IV SCH (23:04)
[2023-07-09 23:22] LABS: Appearance Urine Clear (Clear); Bilirubin Urine Negative (Negative); Blood Urine Negative (Negative); Color Urine Yellow; Glucose Urine UA 3+ (Negative); Ketones Urine 1+ (Negative); Leukocyte Esterase Urine Negative (Negative); Nitrite Urine Negative (Negative); Protein Urine Negative (Negative); Specific Gravity Urine 1.041 (1.000-1.030); Urobilinogen Urine Negative (Negative)
[2023-07-09 23:25] LABS: Basophils # (auto) 0.02 K/uL (0-0.2); Basophils % (auto) 0.3 %; Eosinophils # (auto) 0.06 K/uL (0-0.50); Hematocrit (blood only) 32.6 % (42.0-52.0); Hemoglobin 10.8 g/dl (14.0-18.0); Immature Granulocytes # (auto) 0.01 K/uL (0.01-0.20); Immature Granulocytes % (auto) 0.2 %; Lymphocytes # (auto) 1.45 K/uL (1.2-3.4); Lymphocytes % (auto) 23.9 %; Mean Corpuscular Hemoglobin 30.2 pg (25.0-34.0); Mean Corpuscular Hgb Conc 33.1 g/dL (32.0-36.0); Mean Corpuscular Volume 91.1 fL (80.0-100.0); Mean Platelet Volume 10.2 fL (9.4-12.4); Monocytes # (auto) 0.44 K/uL (0.11-0.59); Monocytes % (auto) 7.3 %; Neutrophils # (auto) 4.08 K/uL (1.40-6.50); Neutrophils % (auto) 67.3 %; Platelet Count 173 K/uL (130-400); RDW Coefficient of Variation 16.6 % (11.5-14.5); RDW Standard Deviation 55.4 fL (36.4-46.3); Red Blood Count 3.58 M/uL (4.70-6.10); White Blood Count 6.06 K/ul (4.8-10.8)
--- NOTE | 2023-07-09 23:40 | Emergency Department Note ---
Impression & Plan Gait instability, Dizziness, Hypomagnesemia ED Provider Note CHIEF COMPLAINT: Off balance, weakness HISTORY OF PRESENT ILLNESS: This 73-year-old male patient past medical history of stroke, hypothyroid, hypertension, malignant melanoma, pancreatitis presents to the emergency department with complaints of gait imbalance and excessive weakness over the last several days. Patient apparently lives at home alone but is frequently tended to by his daughter who does not live far away. She stated they were busy the last several nights and were not able to have him over to eat. He was not able to tell her if/what he ate over those days. Today is the patient's birthday and she went to pick them up for dinner. When he got out of the car at the restaurant, he stumbled quite a bit and required the assistance of his son-in-law and grandson. She thought perhaps the patient's blood sugar w as low and gave him a root beer and sub. He did not seem to be improving. She checked his blood sugar and it was over 200. Patient states this is getting worse over the last 24 hours or so. He denies any confusion or difficulty using his extremities. He denies any room spinning or persistent nausea. He has not had any difficulty with his bowels or urination. REVIEW OF SYSTEMS: A review of systems was performed with positives and pertinent negatives listed in the history of present illness. 10 systems were reviewed and are otherwise negative. ALLERGIES: see below MEDICATIONS: see below PMH: see below SOCIAL HISTORY: see below DDx: Infection, dehydration, metabolic abnormality, hypo/hyperglycemia, electrolyte disturbance, anemia, hypoxia, cardiac sources, intracerebral event, toxicologic, neurologic, as well as other pathologies. PHYSICAL EXAM: Vital signs reviewed. General: Well-appearing 73 yo male, in no significant distress. HEENT: No scleral icterus, PERRLA, neck supple. Atraumatic. Cardiovascular: Regular rate and rhythm, no extra sounds. Pulmonary: Clear to auscultation bilaterally, normal work of breathing. Abdomen: Soft, nontender, nondistended, positive bowel sounds. Musculoskeletal: Atraumatic, no peripheral edema. Neurologic: Patient awake alert and oriented x 3, speech is clear. Intact [id number], negative pronator drift. Equal strength in all 4 extremities. Skin: Warm, dry, no rash EMERGENCY DEPARTMENT COURSE/MDM: This patient was evaluated and appeared to be in no significant distress. IV access was obtained and laboratory work was drawn. External medical records were reviewed including imaging. CT imaging of the head was performed and reveals no acute intracranial abnormality but there is evidence of previous infarct in the cerebellum and left thalamus. Patient's laboratory work is fairly reassuring. He was hydrated with normal saline solution, given IV magnesium repletion as well as 25 mg of p.o. meclizine. An ambulatory trial was performed by nursing staff stated the patient was at least a 1 assist to the bathroom. He did not seem to be steady on his feet. Given his previous stroke history, continued gait imbalance and the fact that he lives at home alone COVID the patient's case was discussed with the hospitalist service for further evaluation and management. MONITORING: An order for cardiac monitoring was placed and the patient is noted to be in a NSR at 70 beats per minute. RADIOLOGY: To my interpretation reveals no evidence of acute intracranial abnormality, otherwise defer to radiology. Chest x-ray to my interpretation reveals no evidence of focal lung consolidation or failure. Otherwise defer to radiology. EKG: To my interpretation reveals normal sinus rhythm at 65 bpm. Left anterior fascicular block, LVH with QRS widening. QTc of 432. No significant change from previous dated May 22, 2023. 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 Hood Borderline hyperlipidemia Choledocholithiasis Depression Diabetes mellitus, type 2 Enlarged prostate History of COVID-19 11/16- congestion > resolved HTN (hypertension) Hx of melanoma of skin Hypothyroidism Poor historian phone interview done by pts daughter TIA (transient ischemic attack) x2, Most recent 8+ years ago- residual problems with taking longer to process info Surgical History Family history of reaction to anesthesia daughter > post-op nausea H/O umbilical hernia repair (05/16/23) p Laparoscopic Cholecystectomy(Not Applicable) - Deepak Pickering DO s and Open Umbilical Hernia Repair(Not Applicable) - Deepak Pickering DO History of ERCP + stent (plans for removal after lap [place]) History of esophagogastroduodenoscopy (EGD) Hx laparoscopic cholecystectomy (05/16/23) p Laparoscopic Cholecystectomy(Not Applicable) - Deepak Pickering DO s and Open Umbilical Hernia Repair(Not Applicable) - Deepak Pickering DO S/P colonoscopy S/P hernia repair inguinal Social History Smoking Status: Never smoker Tobacco Type: Smokeless Tobacco (Dip or Chew) Cigarettes Per Day: quit smoking 40+ years; Second Hand Exposure: No; Do You Dip or Chew Tobacco: No; Hx Alcohol Use: No Hx Substance Use: No Preferred Language: Arabic Communication Ability: Effective Visual Impairment: No Limitations Hearing Ability: Normal Canvas Goods Maker Required: No Beliefs That Will Affect Care: None marital status: Current Living Situation: Alone Current Living Situation Comment: dtr goes to drs appointments - he lives by himself current occupational status: retired Feels Safe at Home: Yes Assistive Devices: Glasses Allergies Allergies Allergy/AdvReac Type Severity Reaction Status Date / Time No Known Allergies Allergy Verified 07/09/23 22:16 Home Meds Home Medications Medication Instructions Recorded Confirmed clopidogrel 75 mg tablet 75 mg PO QAM 08/17/20 07/09/23 metformin 500 mg tablet 1,000 mg PO BID 08/17/20 07/09/23 aspirin 81 mg tablet,delayed 81 mg PO DAILY 03/31/23 07/09/23 release levothyroxine 88 mcg tablet 88 mcg PO QAM 03/31/23 07/09/23 (Synthroid) magnesium oxide 400 mg PO BID 03/31/23 07/09/23 simvastatin 40 mg tablet 40 mg PO DAILY 03/31/23 07/09/23 tamsulosin 0.4 mg capsule 0.4 mg PO DAILY 03/31/23 07/09/23 fluoxetine 40 mg capsule 40 mg PO HS 05/12/23 07/09/23 multivit with 1 tab PO DAILY 05/12/23 07/09/23 [id number] 18 mg iron-800 mcg-150 mg tablet (Vitamin D3 Complete) nitroglycerin 0.3 mg sublingual 0.3 mg sublingual DAILY 05/20/23 07/09/23 tablet polyethylene glycol 3350 17 gram 0 g PO DAILY PRN constipation 05/20/23 07/09/23 oral powder packet (Miralax) lisinopril 10 mg tablet 10 mg PO DAILY 07/09/23 07/09/23 Previous Rx's Medication Instructions Recorded blood sugar diagnostic (OneTouch #25 ea 04/14/23 Verio test strips) calcitriol 0.25 mcg capsule 0.25 mcg PO QAM #30 caps 04/14/23 pantoprazole 40 mg tablet,delayed 40 mg PO QAM #90 tabs 06/08/23 release Results & Data (ED) Vital Signs Vital Signs - 24 hr 07/09/23 20:08 07/09/23 20:34 07/09/23 20:43 Temperature 36 C L Temperature Source Temporal Artery Scan Pulse Rate 85 70 65 Pulse Rate from SpO2 Sensor Respiratory Rate 18 14 16 Respiratory Effort / Characteristics Non-Labored Respiratory Depth Normal Blood Pressure 107/76 Blood Pressure Mean 86 Pulse Oximetry 94 Oxygen Delivery Method Room Air Oxygen Flow Rate Sepsis Recent Fever Within 48 Hours No Sepsis New/Unexplained Change in Mental Status No Sepsis Action Taken by Nursing No Action Required 07/09/23 20:43 07/09/23 20:34 07/09/23 20:56 Temperature Temperature Source Pulse Rate 69 Pulse Rate from SpO2 Sensor Respiratory Rate Respiratory Effort / Characteristics Respiratory Depth Blood Pressure 124/70 Blood Pressure Mean 85 Pulse Oximetry 98 Oxygen Delivery Method Room Air Oxygen Flow Rate 0 Sepsis Recent Fever Within 48 Hours Sepsis New/Unexplained Change in Mental Status Sepsis Action Taken by Nursing 07/09/23 21:00 07/09/23 21:00 07/09/23 21:30 Temperature Temperature Source Pulse Rate 68 67 Pulse Rate from SpO2 Sensor 67 67 Respiratory Rate 23 19 Respiratory Effort / Characteristics Respiratory Depth Blood Pressure 121/73 Blood Pressure Mean 89 Pulse Oximetry 96 97 Oxygen Delivery Method Oxygen Flow Rate Sepsis Recent Fever Within 48 Hours Sepsis New/Unexplained Change in Mental Status Sepsis Action Taken by Intermediate Medications Current Medication List: was personally reviewed by me Laboratory Data Attestation: I reviewed the patient's lab results. 07/09/23 23:10 07/09/23 20:30 Lab Results 07/09/23 07/09/23 07/09/23 Range/Units 20:30 20:30 20:47 WBC Cancelled RBC Cancelled Hgb Cancelled Hct Cancelled MCV Cancelled MCH Cancelled MCHC Cancelled RDW Std Deviation Cancelled RDW Coeff of Dinorah Cancelled Plt Count Cancelled MPV Cancelled Immature Gran % (Auto) Cancelled Neut % (Auto) Cancelled Lymph % (Auto) Cancelled Rogers % (Auto) Cancelled Eos % (Auto) Cancelled Baso % (Auto) Cancelled Neut # (Auto) Cancelled Lymph # (Auto) Cancelled Rogers # (Auto) Cancelled Eos # (Auto) Cancelled Baso # (Auto) Cancelled Immature Gran # (Auto) Cancelled Absolute Nucleated RBC Cancelled Nucleated RBC % (auto) Cancelled Neutrophils % (Manual) Cancelled Band Neutrophils % Cancelled Lymphocytes % (Manual) Cancelled Prolymphocyte % Cancelled Reactive Lymphs % (Man) Cancelled Monocytes % (Manual) Cancelled Eosinophils % (Manual) Cancelled Basophils % (Manual) Cancelled Metamyelocytes % (Man) Cancelled Myelocytes % (Man) Cancelled Promyelocytes % (Man) Cancelled Blast Cells % (Manual) Cancelled Plasma Cell % (Manual) Cancelled Other Cells % Cancelled Nucleated RBC % Cancelled Neutrophils # (Manual) Cancelled Band Neutrophils # Cancelled Total Absolute Neuts Cancelled Lymphocytes # (Manual) Cancelled Prolymphocyte # Cancelled Reactive Lymphs # Cancelled Total Abs Lymphocytes Cancelled Monocytes # (Manual) Cancelled Eosinophils # (Manual) Cancelled Basophils # (Manual) Cancelled Metamyelocytes # (Man) Cancelled Myelocytes # (Manual) Cancelled Promyelocytes # (Man) Cancelled Blast Cells # (Man) Cancelled Plasma Cell # (Manual) Cancelled Other Cells # Cancelled Nucleated RBCs # (Man) Cancelled Hypersegmented Neuts Cancelled Hyposegmented Neuts Cancelled Hypogranular Neuts Cancelled Large Granular Lymphs Cancelled # Lrg Granular Lymphs Cancelled Hairy Cells Cancelled Smudge Cells Cancelled Toxic Granulation Cancelled Toxic Vacuolation Cancelled Dohle Bodies Cancelled Vicente Rods Cancelled Platelet Estimate Cancelled Hypogranular Platelets Cancelled Giant Platelets Cancelled Platelet Satelliting Cancelled RBC Morphology Cancelled Polychromasia Cancelled Hypochromasia Cancelled Poikilocytosis Cancelled Basophilic Stippling Cancelled Anisocytosis Cancelled Microcytosis Cancelled Macrocytosis Cancelled Spherocytes Cancelled Pappenheimer Bodies Cancelled Sickle Cells Cancelled Target Cells Cancelled Tear Drop Cells Cancelled Ovalocytes Cancelled Stomatocytes Cancelled [place] Bodies Cancelled Echinocytes Cancelled Acanthocytes (Spur) Cancelled Rouleaux Cancelled RBC Agglutinates Cancelled Schistocytes Cancelled Sezary Cell Cancelled Sodium 136 (136-145) mmol/L Potassium 4.2 (3.5-5.1) mmol/L Chloride 102 (98-107) mmol/L Carbon Dioxide 21 (21-32) mmol/L Anion Gap 13 H (3-11) BUN 16 (6-23) mg/dl Creatinine 0.76 (0.6-1.4) mg/dl Est Cr Clr Drug Dosing 94.3 ml/min Est GFR ( Amer) 104.9 ml/min Est GFR (Non-Af Amer) 90.5 ml/min BUN/Creatinine Ratio 21.1 H (10-20) Glucose 275 H (70-99(Fasting)) mg/dl POC Glucose 289 H (70-99) mg/dl Calcium 9.5 (8.6-10.3) mg/dl Magnesium 1.4 L (1.7-2.4) mg/dl Total Bilirubin 0.8 (0.2-1.0) mg/dl AST 15 (13-39) U/L ALT 12 (7-52) U/L Alkaline Phosphatase 66 (34-104) U/L Troponin I High Sens 9.3 (0-20) pg/ml Total Protein 7.3 (6.0-8.3) gm/dl Albumin 4.1 (3.4-5.0) gm/dl Globulin 3.2 (2.5-4.0) gm/dl Albumin/Globulin Ratio 1.3 (0.9-2) Urine Color Urine Appearance (Clear) Urine pH (4.5-7.5) Ur Specific [place] (1.000-1.030) Urine Protein (Negative) Urine Glucose (UA) (Negative) Urine Ketones (Negative) Urine Blood (Negative) Urine Nitrite (Negative) Urine Bilirubin (Negative) Urine Urobilinogen (Negative) Ur Leukocyte Esterase (Negative) Blood Parasites ID Cancelled 07/09/23 07/09/23 Range/Units 23:10 23:10 WBC 6.06 RBC 3.58 L Hgb 10.8 L Hct 32.6 L MCV 91.1 MCH 30.2 MCHC 33.1 RDW Std Deviation 55.4 H RDW Coeff of Dinorah 16.6 H Plt Count 173 MPV 10.2 Immature Gran % (Auto) 0.2 Neut % (Auto) 67.3 Lymph % (Auto) 23.9 Rogers % (Auto) 7.3 Eos % (Auto) 1.0 Baso % (Auto) 0.3 Neut # (Auto) 4.08 Lymph # (Auto) 1.45 Rogers # (Auto) 0.44 Eos # (Auto) 0.06 Baso # (Auto) 0.02 Immature Gran # (Auto) 0.01 Absolute Nucleated RBC Nucleated RBC % (auto) Neutrophils % (Manual) Band Neutrophils % Lymphocytes % (Manual) Prolymphocyte % Reactive Lymphs % (Man) Monocytes % (Manual) Eosinophils % (Manual) Basophils % (Manual) Metamyelocytes % (Man) Myelocytes % (Man) Promyelocytes % (Man) Blast Cells % (Manual) Plasma Cell % (Manual) Other Cells % Nucleated RBC % Neutrophils # (Manual) Band Neutrophils # Total Absolute Neuts Lymphocytes # (Manual) Prolymphocyte # Reactive Lymphs # Total Abs Lymphocytes Monocytes # (Manual) Eosinophils # (Manual) Basophils # (Manual) Metamyelocytes # (Man) Myelocytes # (Manual) Promyelocytes # (Man) Blast Cells # (Man) Plasma Cell # (Manual) Other Cells # Nucleated RBCs # (Man) Hypersegmented Neuts Hyposegmented Neuts Hypogranular Neuts Large Granular Lymphs # Lrg Granular Lymphs Hairy Cells Smudge Cells Toxic Granulation Toxic Vacuolation Dohle Bodies Vicente Rods Platelet Estimate Hypogranular Platelets Giant Platelets Platelet Satelliting RBC Morphology Polychromasia Hypochromasia Poikilocytosis Basophilic Stippling Anisocytosis Microcytosis Macrocytosis Spherocytes Pappenheimer Bodies Sickle Cells Target Cells Tear Drop Cells Ovalocytes Stomatocytes Del[place] Bodies Echinocytes Acanthocytes (Spur) Rouleaux RBC Agglutinates Schistocytes Sezary Cell Sodium (136-145) mmol/L Potassium (3.5-5.1) mmol/L Chloride (98-107) mmol/L Carbon Dioxide (21-32) mmol/L Anion Gap (3-11) BUN (6-23) mg/dl Creatinine (0.6-1.4) mg/dl Est Cr Clr Drug Dosing ml/min Est GFR ( Amer) ml/min Est GFR (Non-Af Amer) ml/min BUN/Creatinine Ratio (10-20) Glucose (70-99(Fasting)) mg/dl POC Glucose (70-99) mg/dl Calcium (8.6-10.3) mg/dl Magnesium (1.7-2.4) mg/dl Total Bilirubin (0.2-1.0) mg/dl AST (13-39) U/L ALT (7-52) U/L Alkaline Phosphatase (34-104) U/L Troponin I High Sens (0-20) pg/ml Total Protein (6.0-8.3) gm/dl Albumin (3.4-5.0) gm/dl Globulin (2.5-4.0) gm/dl Albumin/Globulin Ratio (0.9-2) Urine Color Yellow Urine Appearance Clear (Clear) Urine pH 5.0 (4.5-7.5) Ur Specific [place] 1.041 H (1.000-1.030) Urine Protein Negative (Negative) Urine Glucose (UA) 3+ H (Negative) Urine Ketones 1+ H (Negative) Urine Blood Negative (Negative) Urine Nitrite Negative (Negative) Urine Bilirubin Negative (Negative) Urine Urobilinogen Negative (Negative) Ur Leukocyte Esterase Negative (Negative) Blood Parasites ID Administered Medications Discontinued Medications Aspirin (Aspirin 81 Mg Ectab) 81 mg PO DAILY [facility] Stop: 08/09/23 08:59 Last Admin: 07/10/23 08:17 Dose: 81 mg Documented By: GISELLE Calcitriol (Calcitriol 0.25 Mcg Capsule) 0.25 mcg PO QAM [facility] Stop: 08/09/23 08:59 Last Admin: 07/10/23 08:17 Dose: 0.25 mcg Documented By: GISELLE Clopidogrel Bisulfate (Clopidogrel Bisulfate 75 Mg Tab) 75 mg PO QAM [facility] Stop: 08/09/23 08:59 Last Admin: 07/10/23 08:17 Dose: 75 mg Documented By: GISELLE Sodium Chloride (Nss 1000ml) 500 mls @ 999 mls/hr IV .Q31M ONE Stop: 07/09/23 22:30 Last Infusion: 07/09/23 22:50 Dose: 0 mls/hr Documented By: Admin: 07/09/23 22:16 Dose: 999 mls/hr Documented By: JOSSY Sodium Chloride (Nss 1000ml) 1,000 mls @ 125 mls/hr IV .Q8H [facility] Stop: 08/08/23 21:59 Last Infusion: 07/10/23 02:20 Dose: 0 mls/hr Documented By: Infusion: 07/10/23 02:19 Dose: 0 mls/hr Documented By: Admin: 07/09/23 22:39 Dose: 125 mls/hr Documented By: JOSSY Magnesium Sulfate/Dextrose (Magnesium Sulfate / D5w) 1 gm in 100 mls @ 200 mls/hr IV Q30M [facility] Stop: 07/09/23 23:34 Last Infusion: 07/10/23 00:29 Dose: 0 mls/hr Documented By: Admin: 07/10/23 00:28 Dose: 100 mls/hr Documented By: Infusion: 07/10/23 00:28 Dose: 0 mls/hr Documented By: Admin: 07/09/23 23:04 Dose: 200 mls/hr Documented By: JOSSY Magnesium Sulfate/Dextrose (Magnesium Sulfate / D5w) 1 gm in 100 mls @ 50 mls/hr IV 0200 ONE Stop: 07/10/23 03:59 Last Infusion: 07/10/23 04:30 Dose: 0 mls/hr Documented By: Admin: 07/10/23 02:30 Dose: 50 mls/hr Documented By: SARATH Lactated Ringer's (Lr) 1,000 mls @ 125 mls/hr IV .Q8H [facility] Stop: 07/10/23 17:43 Last Admin: 07/10/23 11:19 Dose: 125 mls/hr Documented By: Infusion: 07/10/23 11:19 Dose: 0 mls/hr Documented By: Admin: 07/10/23 02:18 Dose: 125 mls/hr Documented By: SARATH Insulin Aspart (Insulin Aspart Per Unit Charge) 0 units SC ACHS [facility] Stop: 08/09/23 07:29 Last Admin: 07/10/23 14:29 Dose: 3 units Documented By: GISELLE Co-signed By: RSJim Admin: 07/10/23 09:13 Dose: 3 units Documented By: GISELLE Co-signed By: BALJEET Insulin Glargine (Lantus Per Unit Charge) 7 units SQ BID [facility] Stop: 08/09/23 08:59 Last Admin: 07/10/23 08:25 Dose: 7 units Documented By: GISELLE Co-signed By: JED Insulin Human Regular (Novolin-R Insulin Per Unit Charge) 5 units SC NOW STA Stop: 07/10/23 00:54 Last Admin: 07/10/23 01:25 Dose: 5 units Documented By: SARATH Co-signed By: NICHOLAS Levothyroxine Sodium (Levothyroxine Sodium 88 Mcg Tablet) 88 mcg PO DAILYBB [facility] Stop: 08/09/23 06:29 Last Admin: 07/10/23 07:16 Dose: 88 mcg Documented By: GISELLE Lisinopril (Lisinopril 10 Mg Tab) 10 mg PO DAILY [facility] Stop: 08/09/23 08:59 Last Admin: 07/10/23 08:17 Dose: 10 mg Documented By: GISELLE Meclizine HCl (Meclizine Hcl 25 Mg Tab) 25 mg PO NOW STA Stop: 07/09/23 23:52 Last Admin: 07/10/23 01:25 Dose: 25 mg Documented By: SARATH Pantoprazole Sodium (Pantoprazole 40 Mg Tab) 40 mg PO QAM [facility] Stop: 08/09/23 08:59 Last Admin: 07/10/23 08:16 Dose: 40 mg Documented By: GISELLE Potassium Chloride (Potassium Chloride Crtab 20 Meq Tabcr) 40 meq PO NOW STA Stop: 07/10/23 09:04 Last Admin: 07/10/23 09:15 Dose: 40 meq Documented By: GISELLE Simvastatin (Simvastatin 40 Mg Tab) 40 mg PO DAILY [facility] Stop: 08/09/23 08:59 Last Admin: 07/10/23 08:16 Dose: 40 mg Documented By: GISELLE Tamsulosin HCl (Tamsulosin Hcl 0.4 Mg Cap) 0.4 mg PO DAILY [facility] Stop: 08/09/23 08:59 Last Admin: 07/10/23 08:16 Dose: 0.4 mg Documented By: GISELLE Imaging Data Radiologist's Impression: Head CT 07/09/23 20:16 Exam(s): CT HEAD Without Contrast EXAM: CT Head Without Intravenous Contrast CLINICAL HISTORY: Reason for exam: dizzy, off balance x 2 days. TECHNIQUE: Axial computed tomography images of the head/brain without intravenous contrast. CTDI is 37.78 mGy and DLP is 625.8 mGy-cm. Automated exposure control was utilized for the study. A dose lowering technique was utilized adhering to the principles of ALARA. COMPARISON: Head CT 03/31/2023 FINDINGS: Brain: No intracranial hemorrhage, mass-effect, or cerebral edema. Chronic infarcts within the cerebellum and left thalamus. Ventricles: Unremarkable. Bones/joints: Unremarkable. No fracture. Soft tissues: Unremarkable. Sinuses: No acute sinusitis. Mastoid air cells: Unremarkable as visualized. IMPRESSION: 1. No acute intracranial abnormality. 2. Chronic infarcts within the cerebellum and left thalamus. Electronically signed by: Kamlesh Velasquez MD 07/09/23 22:40 PM Discharge Plan Visit Data Chief Complaint: Neuro Symptoms/Deficit Stated Complaint: DIZZY,BLOOD SUGAR 200S ED Provider: Courtney Griffith Discharge Problem: Gait instability, Dizziness, Hypomagnesemia Patient Disposition: Admitted As Inpatient Discharge Instructions Interventions: ED Discharge Assessment Last Done: 07/10/23 01:44
[2023-07-09] MEDS ORDERED: MECLIZINE HCL 25 MG TAB PO STA (23:51)
[2023-07-10 00:15] LABS: Troponin I High Sensitivity 9.3 pg/ml (0-20)
[2023-07-10] MEDS: MAGNESIUM SULFATE / D5W 1 GM/100 ML BAG IV SCH (00:28)
[2023-07-10] MEDS ORDERED: NovoLIN-R INSULIN PER UNIT CHARGE SC STA (00:53)
--- NOTE | 2023-07-10 00:53 | History & Physical Report ---
Date of Service July 10, 2023 Assessment & Plan (1) Dizziness: Plan: 73yo male reports two days of dizziness, generalized weakness. Symptoms seem to be associated with positional changes. Possibly orthostasis. Of note, patient did feel similarly when he had an issue with his gallbladder - he is currently showing no evidence of infection except low body temperature at 36 Do not suspect new acute CVA given lack of focal symptoms and improvement with IVF and Mg. Patient is already on ASA, Plavix and Simvastatin which he is compliant with. -Admit to medical with telemetry -Check orthostatic VS -Continue IVF LR at 125mL/hr x 2L -Mg repletion -PT/OT evaluation -Repeat labs in AM - assess WBC count and anion gap - if either worsen would pursue infectious workup (2) Hypomagnesemia: Plan: Mg=1.4 -Received 2gm in ER - will give 1 additional gram -Repeat level in AM (3) Diabetes: Plan: With hyperglycemia. Overall fairly well controlled -Hold metformin -Regular insulin 5u SQ now -Lantus 5u BID and ISS - goal blood sugar 110 - 140 (4) Hypothyroidism: Plan: Chronic. -Continue Synthroid -Check TSH (5) HTN (hypertension): Plan: Blood pressure stable -Continue Lisinopril -Montior -Check orthostatics History of Present Illness Chief Complaint: dizziness Primary Care Provider: Juanita Morgan MD Payam Hill is a pleasant 73yo male with history of HTN, DM, Hypothyroidism, prior CVA with no residual deficits presenting with weakness and lightheadedness. Today is his birthday. He was going out to dinner with his daughter last night to celebrate his birthday. When he went to get out of the car he became very lightheaded and weak. His daughter thought it may be low blood sugar so they got him into the restaurant and got him something to eat and a root beer to drink. He continued to feel dizzy and lightheaded. When he went home he checked his blood sugar and it was 260. He has felt dizziness intermittently for the last two days. He reports it is mostly after postural changes. He denies headache, visual change, vertigo, chest pain, palpitations, cough, SOB. Denies abdominal pain, nausea, vomiting, diarrhea, fever or chills. No urinary complaints. No palpitations. No slurred speech, focal numbness/tingling or weakness. No falls. He reports he eats and drinks well at home but his daughters do not think he takes in enough fluids. Patient reports that he still felt slightly off while in the ER but began to feel better after receiving IVF and Magnesium. He reports he now feels back to baseline. In the ER he is afebrile, HD stable. Temperature is slightly low at 36. ER Course: Magnesium x 2gm IV NSS 500mL bolus now at 125mL/hr Allergies Allergy/AdvReac Type Severity Reaction Status Date / Time No Known Allergies Allergy Verified 07/09/23 22:16 Home Medications Medication Instructions Recorded Confirmed Type clopidogrel 75 mg tablet 75 mg PO QAM 08/17/20 07/09/23 History metformin 500 mg tablet 1,000 mg PO BID 08/17/20 07/09/23 History aspirin 81 mg tablet,delayed 81 mg PO DAILY 03/31/23 07/09/23 History release levothyroxine 88 mcg tablet 88 mcg PO QAM 03/31/23 07/09/23 History (Synthroid) magnesium oxide 400 mg PO BID 03/31/23 07/09/23 History simvastatin 40 mg tablet 40 mg PO DAILY 03/31/23 07/09/23 History tamsulosin 0.4 mg capsule 0.4 mg PO DAILY 03/31/23 07/09/23 History blood sugar diagnostic (OneTouch #25 ea 04/14/23 07/09/23 Rx Verio test strips) calcitriol 0.25 mcg capsule 0.25 mcg PO QAM #30 caps 04/14/23 07/09/23 Rx fluoxetine 40 mg capsule 40 mg PO HS 05/12/23 07/09/23 History multivit with 1 tab PO DAILY 05/12/23 07/09/23 History [id number] 18 mg iron-800 mcg-150 mg tablet (Vitamin D3 Complete) nitroglycerin 0.3 mg sublingual 0.3 mg sublingual DAILY 05/20/23 07/09/23 History tablet polyethylene glycol 3350 17 gram 0 g PO DAILY PRN constipation 05/20/23 07/09/23 History oral powder packet (Miralax) pantoprazole 40 mg tablet,delayed 40 mg PO QAM #90 tabs 06/08/23 07/09/23 Rx release lisinopril 10 mg tablet 10 mg PO DAILY 07/09/23 07/09/23 History Past Med/Surg History Medical History Acute pancreatitis Hospitalized 03/2023 > acute kidney/liver failure 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 Hood Borderline hyperlipidemia Choledocholithiasis Depression Diabetes mellitus, type 2 Enlarged prostate History of COVID-19 11/16- congestion > resolved HTN (hypertension) Hx of melanoma of skin Hypothyroidism Poor historian phone interview done by pts daughter TIA (transient ischemic attack) x2, Most recent 8+ years ago- residual problems with taking longer to process info Surgical History Family history of reaction to anesthesia daughter > post-op nausea H/O umbilical hernia repair (05/16/23) p Laparoscopic Cholecystectomy(Not Applicable) - Deepak Pickering DO s and Open Umbilical Hernia Repair(Not Applicable) - Deepak Pickering DO History of ERCP + stent (plans for removal after lap [place]) History of esophagogastroduodenoscopy (EGD) Hx laparoscopic cholecystectomy (05/16/23) p Laparoscopic Cholecystectomy(Not Applicable) - Deepak Pickering DO s and Open Umbilical Hernia Repair(Not Applicable) - Deepak Pickering DO S/P colonoscopy S/P hernia repair inguinal Social History Smoking Status: Never smoker Tobacco Type: Smokeless Tobacco (Dip or Chew) Cigarettes Per Day: quit smoking 40+ years; Second Hand Exposure: No; Do You Dip or Chew Tobacco: No; Hx Alcohol Use: No Hx Substance Use: No Preferred Language: Cambodian Communication Ability: Effective Visual Impairment: No Limitations Hearing Ability: Normal [employer] Super[employer] Required: No Beliefs That Will Affect Care: None marital status: Current Living Situation: Alone Current Living Situation Comment: dtr goes to drs appointments - he lives by himself current occupational status: retired Feels Safe at Home: Yes Assistive Devices: None Review of Systems Review of Systems: All systems reviewed & are unremarkable except as noted in HPI & below Physical Exam Physical Exam: General: patient resting comfortably, NAD, non-toxic in appearance, AA&O x 4 Skin: warm, dry, intact, no rashes or lesions HEENT: NC/AT, PERRL, EOMI, anicteric sclera, conjunctiva without injection, external ear normal to inspection and nontender, nares patent, moist mucus membranes, dentition intact, no oropharyngeal lesions, neck supple, trachea midline, no LAD, no thyromegaly, no JVD Heart: +S1/S2, regular, no m/r/g Lungs: equal air entry bilaterally, no rales/rhonchi/wheezes Abd: +BS, soft, NT/ND, no masses/organomegaly/ascites Ext: warm, 2+ pulses in UE/LE bilaterally, no clubbing/cyanosis or edema Neuro: Pt AA&O x 4, speech clear and appropriate, non facial droop, CN II-XII grossly intact, sensation to light touch intact, MS 5/5 in UE/LE bilaterally, no dysmetria, no nystagmus, negative HINTS testing Results & Data Results & Data Vital Signs (Past 12 Hours) Vital Signs Temp Pulse Resp BP Pulse Ox O2 Del Method O2 Flow Rate 07/09/23 21:30 67 19 97 07/09/23 21:00 68 23 96 07/09/23 21:00 121/73 07/09/23 20:56 98 Room Air 0 07/09/23 20:34 69 07/09/23 20:43 124/70 07/09/23 20:43 65 16 07/09/23 20:34 70 14 07/09/23 20:08 36 C L 85 18 107/76 94 Room Air Laboratory Results Laboratory Results WBC 6.06 K/ul (4.8-10.8) 07/09/23 23:10 RBC 3.58 M/uL (4.70-6.10) L 07/09/23 23:10 Hgb 10.8 g/dl (14.0-18.0) L 07/09/23 23:10 Hct 32.6 % (42.0-52.0) L 07/09/23 23:10 MCV 91.1 fL (80.0-100.0) 07/09/23 23:10 MCH 30.2 pg (25.0-34.0) 07/09/23 23:10 MCHC 33.1 g/dL (32.0-36.0) 07/09/23 23:10 RDW Std Deviation 55.4 fL (36.4-46.3) H 07/09/23 23:10 RDW Coeff of Dinorah 16.6 % (11.5-14.5) H 07/09/23 23:10 Plt Count 173 K/uL (130-400) 07/09/23 23:10 MPV 10.2 fL (9.4-12.4) 07/09/23 23:10 Immature Gran % (Auto) 0.2 % 07/09/23 23:10 Neut % (Auto) 67.3 % 07/09/23 23:10 Lymph % (Auto) 23.9 % 07/09/23 23:10 [place] % (Auto) 7.3 % 07/09/23 23:10 Eos % (Auto) 1.0 % 07/09/23 23:10 Baso % (Auto) 0.3 % 07/09/23 23:10 Neut # (Auto) 4.08 K/uL (1.40-6.50) 07/09/23 23:10 Lymph # (Auto) 1.45 K/uL (1.2-3.4) 07/09/23 23:10 [place] # (Auto) 0.44 K/uL (0.11-0.59) 07/09/23 23:10 Eos # (Auto) 0.06 K/uL (0-0.50) 07/09/23 23:10 Baso # (Auto) 0.02 K/uL (0-0.2) 07/09/23 23:10 Immature Gran # (Auto) 0.01 K/uL (0.01-0.20) 07/09/23 23:10 Absolute Nucleated RBC Cancelled 07/09/23 20:30 Nucleated RBC % (auto) Cancelled 07/09/23 20:30 Neutrophils % (Manual) Cancelled 07/09/23 20:30 Band Neutrophils % Cancelled 07/09/23 20:30 Lymphocytes % (Manual) Cancelled 07/09/23 20:30 Prolymphocyte % Cancelled 07/09/23 20:30 Reactive Lymphs % (Man) Cancelled 07/09/23 20:30 Monocytes % (Manual) Cancelled 07/09/23 20:30 Eosinophils % (Manual) Cancelled 07/09/23 20:30 Basophils % (Manual) Cancelled 07/09/23 20:30 Metamyelocytes % (Man) Cancelled 07/09/23 20:30 Myelocytes % (Man) Cancelled 07/09/23 20:30 Promyelocytes % (Man) Cancelled 07/09/23 20:30 Blast Cells % (Manual) Cancelled 07/09/23 20:30 Plasma Cell % (Manual) Cancelled 07/09/23 20:30 Other Cells % Cancelled 07/09/23 20:30 Nucleated RBC % Cancelled 07/09/23 20:30 Neutrophils # (Manual) Cancelled 07/09/23 20:30 Band Neutrophils # Cancelled 07/09/23 20:30 Total Absolute Neuts Cancelled 07/09/23 20:30 Lymphocytes # (Manual) Cancelled 07/09/23 20:30 Prolymphocyte # Cancelled 07/09/23 20:30 Reactive Lymphs # Cancelled 07/09/23 20:30 Total Abs Lymphocytes Cancelled 07/09/23 20:30 Monocytes # (Manual) Cancelled 07/09/23 20:30 Eosinophils # (Manual) Cancelled 07/09/23 20:30 Basophils # (Manual) Cancelled 07/09/23 20:30 Metamyelocytes # (Man) Cancelled 07/09/23 20:30 Myelocytes # (Manual) Cancelled 07/09/23 20:30 Promyelocytes # (Man) Cancelled 07/09/23 20:30 Blast Cells # (Man) Cancelled 07/09/23 20:30 Plasma Cell # (Manual) Cancelled 07/09/23 20:30 Other Cells # Cancelled 07/09/23 20:30 Nucleated RBCs # (Man) Cancelled 07/09/23 20:30 Hypersegmented Neuts Cancelled 07/09/23 20:30 Hyposegmented Neuts Cancelled 07/09/23 20:30 Hypogranular Neuts Cancelled 07/09/23 20:30 Large Granular Lymphs Cancelled 07/09/23 20:30 # Lrg Granular Lymphs Cancelled 07/09/23 20:30 Hairy Cells Cancelled 07/09/23 20:30 Smudge Cells Cancelled 07/09/23 20:30 Toxic Granulation Cancelled 07/09/23 20:30 Toxic Vacuolation Cancelled 07/09/23 20:30 Dohle Bodies Cancelled 07/09/23 20:30 Vicente Rods Cancelled 07/09/23 20:30 Platelet Estimate Cancelled 07/09/23 20:30 Hypogranular Platelets Cancelled 07/09/23 20:30 Giant Platelets Cancelled 07/09/23 20:30 Platelet Satelliting Cancelled 07/09/23 20:30 RBC Morphology Cancelled 07/09/23 20:30 Polychromasia Cancelled 07/09/23 20:30 Hypochromasia Cancelled 07/09/23 20:30 Poikilocytosis Cancelled 07/09/23 20:30 Basophilic Stippling Cancelled 07/09/23 20:30 Anisocytosis Cancelled 07/09/23 20:30 Microcytosis Cancelled 07/09/23 20:30 Macrocytosis Cancelled 07/09/23 20:30 Spherocytes Cancelled 07/09/23 20:30 Pappenheimer Bodies Cancelled 07/09/23 20:30 Sickle Cells Cancelled 07/09/23 20:30 Target Cells Cancelled 07/09/23 20:30 Tear Drop Cells Cancelled 07/09/23 20:30 Ovalocytes Cancelled 07/09/23 20:30 Stomatocytes Cancelled 07/09/23 20:30 Delgado-Yetter Bodies Cancelled 07/09/23 20:30 Echinocytes Cancelled 07/09/23 20:30 Acanthocytes (Spur) Cancelled 07/09/23 20:30 Rouleaux Cancelled 07/09/23 20:30 RBC Agglutinates Cancelled 07/09/23 20:30 Schistocytes Cancelled 07/09/23 20:30 Sezary Cell Cancelled 07/09/23 20:30 Sodium 136 mmol/L (136-145) 07/09/23 20:30 Potassium 4.2 mmol/L (3.5-5.1) 07/09/23 20:30 Chloride 102 mmol/L (98-107) 07/09/23 20:30 Carbon Dioxide 21 mmol/L (21-32) 07/09/23 20:30 Anion Gap 13 (3-11) H 07/09/23 20:30 BUN 16 mg/dl (6-23) 07/09/23 20:30 Creatinine 0.76 mg/dl (0.6-1.4) 07/09/23 20:30 Est Cr Clr Drug Dosing 94.3 ml/min 07/09/23 20:30 Est GFR ( Amer) 104.9 ml/min 07/09/23 20:30 Est GFR (Non-Af Amer) 90.5 ml/min 07/09/23 20:30 BUN/Creatinine Ratio 21.1 (10-20) H 07/09/23 20:30 Glucose 275 mg/dl (70-99(Fasting)) H 07/09/23 20:30 POC Glucose 289 mg/dl (70-99) H 07/09/23 20:47 Calcium 9.5 mg/dl (8.6-10.3) 07/09/23 20:30 Magnesium 1.4 mg/dl (1.7-2.4) L 07/09/23 20:30 Total Bilirubin 0.8 mg/dl (0.2-1.0) 07/09/23 20:30 AST 15 U/L (13-39) 07/09/23 20:30 ALT 12 U/L (7-52) 07/09/23 20:30 Alkaline Phosphatase 66 U/L (34-104) 07/09/23 20:30 Troponin I High Sens 9.3 pg/ml (0-20) 07/09/23 20:30 Total Protein 7.3 gm/dl (6.0-8.3) 07/09/23 20:30 Albumin 4.1 gm/dl (3.4-5.0) 07/09/23 20:30 Globulin 3.2 gm/dl (2.5-4.0) 07/09/23 20:30 Albumin/Globulin Ratio 1.3 (0.9-2) 07/09/23 20:30 Urine Color Yellow 07/09/23 23:10 Urine Appearance Clear (Clear) 07/09/23 23:10 Urine pH 5.0 (4.5-7.5) 07/09/23 23:10 Ur Specific [place] 1.041 (1.000-1.030) H 07/09/23 23:10 Urine Protein Negative (Negative) 07/09/23 23:10 Urine Glucose (UA) 3+ (Negative) H 07/09/23 23:10 Urine Ketones 1+ (Negative) H 07/09/23 23:10 Urine Blood Negative (Negative) 07/09/23 23:10 Urine Nitrite Negative (Negative) 07/09/23 23:10 Urine Bilirubin Negative (Negative) 07/09/23 23:10 Urine Urobilinogen Negative (Negative) 07/09/23 23:10 Ur Leukocyte Esterase Negative (Negative) 07/09/23 23:10 Blood Parasites ID Cancelled 07/09/23 20:[address] 07/09/23 20:16 Exam(s): CT HEAD Without Contrast EXAM: CT Head Without Intravenous Contrast CLINICAL HISTORY: Reason for exam: dizzy, off balance x 2 days. TECHNIQUE: Axial computed tomography images of the head/brain without intravenous contrast. CTDI is 37.78 mGy and DLP is 625.8 mGy-cm. Automated exposure control was utilized for the study. A dose lowering technique was utilized adhering to the principles of ALARA. COMPARISON: Head CT 03/31/2023 FINDINGS: Brain: No intracranial hemorrhage, mass-effect, or cerebral edema. Chronic infarcts within the cerebellum and left thalamus. Ventricles: Unremarkable. Bones/joints: Unremarkable. No fracture. Soft tissues: Unremarkable. Sinuses: No acute sinusitis. Mastoid air cells: Unremarkable as visualized. IMPRESSION: 1. No acute intracranial abnormality. 2. Chronic infarcts within the cerebellum and left thalamus. Electronically signed by: Kamlesh Velasquez MD 07/09/23 22:40 PM PG Care Time/CCT Total # of Minutes Spent Total Time Spent with Patient: Total time spent is greater than 50% in coordination of care (as documented) at patient's floor/unit and/or counseling patient: Coding Level of Care Code 24089 INT INP/OBS CARE 2/55MIN Diagnoses Dizziness R42 Hypomagnesemia E83.42 Diabetes E11.9 Hypothyroidism E03.9 HTN (hypertension) I10
[2023-07-10] MEDS ORDERED: ACETAMINOPHEN 325 MG TAB PO PRN (01:44)
[2023-07-10] MEDS ORDERED: CARBOHYDRATES FOR HYPOGLYCEMIA PO PRN (01:44)
[2023-07-10] MEDS ORDERED: ONDANSETRON INJ 2 MG/ML 2 ML VIAL IV PRN (01:44)
[2023-07-10] MEDS ORDERED: DEXTROSE 50% 50 ML SYRINGE IV PRN (01:44)
[2023-07-10] MEDS ORDERED: GLUCOSE 40% GEL 15 GM TUBE PO PRN (01:44)
[2023-07-10] MEDS ORDERED: GLUCAGON FOR INJ 1 MG VIAL SQ PRN (01:44)
[2023-07-10] MEDS ORDERED: GLUCOSE 10 TAB/TUBE PO PRN (01:44)
[2023-07-10] MEDS ORDERED: POLYETHYLENE (MIRALAX) 17 GM PACK PO PRN (01:44)
[2023-07-10] MEDS ORDERED: MAGNESIUM SULFATE / D5W 1 GM/100 ML BAG IV ONE (02:00)
[2023-07-10] MEDS: LACTATED RINGER'S 1,000 ML IV SCH ×2 (02:18→11:19)
[2023-07-10] MEDS ORDERED: LEVOTHYROXINE SODIUM 88 MCG TABLET PO SCH (06:30)
--- NOTE | 2023-07-10 07:05 | XRay Report ---
XR chest 1V portable HISTORY: dizzy COMPARISON: Chest 05/20/2023. FINDINGS: The lungs are clear. The cardiomediastinal is top normal in size. No pleural effusions. No pneumothorax. There are surgical clips again noted within the left axilla and right upper quadrant. IMPRESSION: No acute process. ACT 112: Negative or not required by law. Electronically signed by: Alexey Hennessy M.D. 07/10/2023 7:04 AM
--- NOTE | 2023-07-10 07:13 | Hospitalist Progress Note ---
Date of Service July 10, 2023 Assessment & Plan (1) Dizziness: (2) Type 2 diabetes mellitus: (3) History of CVA (cerebrovascular accident): (4) HTN (hypertension): (5) Hypothyroidism: Plan Pt is a 73yo male with history of HTN, DM, Hypothyroidism, and prior CVA with no residual deficits presenting on 07/09/23 with weakness and lightheadedness. Pt doing well today. Tried to call the primary and secondary contact multiple times today (his daughters) but unable to get in contact with them. Pt states his daughter (primary contact) should be off work at 3:30pm, but called at 4:30pm and unable to get in contact with her. Will reattempt to contact either contact once more this evening and then try again tomorrow to see if we can figure out what is baseline mentation is. Pt noted that he lives independent but that his daughter takes care of his bills, implying this may be his baseline level of mentation prior to considering discharge. Pt is without his cellphone and cannot recall the phone numbers for any of his family members. Will just reattempt to touch base with his contacts tomorrow. #Lightheadedness Do not suspect new acute CVA given lack of focal symptoms and improvement with IVF and Mg. Patient is already on ASA, Plavix and Simvastatin which he is compliant with. - CXR and head CT unremarkable for acute processes -Check orthostatic VS -Continue IVF LR at 125mL/hr x 2L -Mg repletion -PT/OT evaluation #Hypomagnesemia - Mg=1.4, repeat 1.9 after repletion -Received 2gm in ER - will give 1 additional gram -Repeat level in AM #Diabetes With hyperglycemia. Overall fairly well controlled -Hold metformin -Regular insulin 5u SQ now -Lantus 5u BID and ISS - goal blood sugar 110 - 140 #Hypothyroidism Plan: Chronic. -TSH 1.5 -Continue Synthroid #HTN (hypertension) Plan: Blood pressure stable, 110s-120s systolic -Continue Lisinopril -Montior -Check orthostatics VTE proph: Dispo: med with telemetry Admission and Anticipated Discharge Date Admission Date: July 10, 2023 Supervising Physician Co-Signing Physician Notes I personally examined the patient and verified all harrell points of history and exam, discussed case, and agree with decision making with Dr Mcdonnell feeling OK no complaints doesn't really remember why he's here vitals noted nad heent nc at mmm breathing unlabored no accessory muscles good effort skin no rashes no pallor or icterus neuro no focal deficits weak/lightheaded - due to dehydration - poor PO fluid intake per resident physician discussion with dtrs. safe for home, encourage 60-70oz fluids, outpt f/u otherwise as above Subjective Pt is a 73yo male with history of HTN, DM, Hypothyroidism, and prior CVA with no residual deficits presenting on 07/09/23 with weakness and lightheadedness. Today, gathering history from the patient was attempted, but it seems that pt has limited memory. While he is alert and oriented, he responds "I don't know" to many questions, stating he does not know what happened last night aside from he went to dinner with his daughter and felt weak and so she brought him in. He denies chest pain, SOB, headache, vision changes, or issues with bowel or bladder function. He is able to tell me his name, birthday, and that he is at a hospital in [place], but cannot tell me the year. He states that he feels okay and has no complaints at this time. Review of Systems Review of Systems: Per HPI. Physical Exam Physical Exam: General:Alert and oriented to person and place but not time, no acute distress, HEENT: Normocephalic, moist oral mucosa, Cardio: Regular rate and rhythm, no murmur, Resp:Lungs clear to auscultation b/l, no wheezes or rhonchi, GI: Soft and nontender, nondistended, bowel sounds active Skin: Warm, pink, dry, Psych: Mood-affect congruence. Results & Data Results & Data Vital Signs (Past 12 Hours) Vital Signs Temp Pulse Resp BP Pulse Ox O2 Del Method O2 Flow Rate 07/10/23 05:30 52 L 23 97 07/10/23 05:00 53 L 18 122/71 95 Room Air 07/10/23 04:30 54 L 13 96 07/10/23 04:00 63 24 130/69 96 07/10/23 03:30 55 L 20 94 07/10/23 03:00 54 L 13 125/74 97 07/10/23 02:30 57 L 16 96 07/10/23 02:16 58 L 21 158/103 H 98 07/10/23 02:00 56 L 19 128/76 07/10/23 01:30 60 15 07/10/23 01:00 58 L 19 135/73 07/10/23 00:30 59 L 24 07/10/23 00:00 58 L 14 131/77 07/09/23 23:30 61 22 07/09/23 23:00 55 L 19 125/73 07/09/23 22:30 78 16 97 07/09/23 22:00 64 18 123/75 96 07/10/23 00:55 59 L 07/09/23 21:30 67 19 97 07/09/23 21:00 68 23 96 07/09/23 21:00 121/73 07/09/23 20:56 98 Room Air 0 07/09/23 20:34 69 07/09/23 20:43 124/70 07/09/23 20:43 65 16 07/09/23 20:34 70 14 07/09/23 20:08 36 C L 85 18 107/76 94 Room Air Resident Activity Tracking Resident Involvement: Resident Care Provided Care Provided: Adult Hospital Medicine
[2023-07-10 07:49] LABS: Basophils # (auto) 0.03 K/uL (0-0.2); Basophils % (auto) 0.5 %; Eosinophils # (auto) 0.09 K/uL (0-0.50); Eosinophils % (auto) 1.6 %; Hematocrit (blood only) 34.5 % (42.0-52.0); Hemoglobin 11.3 g/dl (14.0-18.0); Immature Granulocytes # (auto) 0.02 K/uL (0.01-0.20); Immature Granulocytes % (auto) 0.3 %; Lymphocytes # (auto) 1.77 K/uL (1.2-3.4); Lymphocytes % (auto) 30.8 %; Mean Corpuscular Hgb Conc 32.8 g/dL (32.0-36.0); Mean Corpuscular Volume 91.5 fL (80.0-100.0); Mean Platelet Volume 9.8 fL (9.4-12.4); Monocytes # (auto) 0.46 K/uL (0.11-0.59); Neutrophils # (auto) 3.38 K/uL (1.40-6.50); Neutrophils % (auto) 58.8 %; Platelet Count 160 K/uL (130-400); RDW Coefficient of Variation 16.4 % (11.5-14.5); RDW Standard Deviation 55.7 fL (36.4-46.3); Red Blood Count 3.77 M/uL (4.70-6.10); White Blood Count 5.75 K/ul (4.8-10.8)
[2023-07-10 07:58] LABS: BUN Creatinine Ratio 22.2 (10-20); Calcium 8.2 mg/dl (8.6-10.3); Creatinine Clr Calc Pharmacy 113.7 ml/min; Est GFR (African American) 113.3 ml/min; Est GFR (Non-African American) 97.8 ml/min; Potassium 3.4 mmol/L (3.5-5.1)
[2023-07-10] MEDS ORDERED: LANTUS PER UNIT CHARGE SQ SCH (09:00)
[2023-07-10] MEDS ORDERED: PANTOprazole 40 MG TAB PO SCH (09:00)
[2023-07-10] MEDS ORDERED: CALCITRIOL 0.25 MCG CAPSULE PO SCH (09:00)
[2023-07-10] MEDS ORDERED: ASPIRIN 81 MG ECTAB PO SCH (09:00)
[2023-07-10] MEDS ORDERED: CLOPIDOGREL BISULFATE 75 MG TAB PO SCH (09:00)
[2023-07-10] MEDS ORDERED: SIMVASTATIN 40 MG TAB PO SCH (09:00)
[2023-07-10] MEDS ORDERED: lisinopril 10 MG TAB PO SCH (09:00)
[2023-07-10] MEDS ORDERED: TAMSULOSIN HCL 0.4 MG CAP PO SCH (09:00)
[2023-07-10] MEDS ORDERED: POTASSIUM CHLORIDE CRTAB 20 MEQ TABCR PO STA (09:03)
[2023-07-10] MEDS: INSULIN ASPART PER UNIT CHARGE SC SCH ×2 (09:13→14:29)
--- NOTE | 2023-07-10 14:10 | Electrocardiogram Report ---
Test Reason : Blood Pressure : / mmHG Vent. Rate : 065 BPM Atrial Rate : 065 BPM P-R Int : 174 ms QRS Dur : 116 ms QT Int : 416 ms P-R-T Axes : 038 -47 021 degrees QTc Int : 432 ms Normal sinus rhythm Left anterior fascicular block Left ventricular hypertrophy with QRS widening ( R in aVL ) Abnormal ECG When compared with ECG of 22-MAY-2023 10:40, No significant change was found Confirmed by Rome Butler ([id number]) on 07/10/2023 2:09:50 PM Referred By: REFERRED SELF Confirmed By:Rome Butler
--- NOTE | 2023-07-10 14:12 | Electrocardiogram Report ---
Test Reason : Blood Pressure : / mmHG Vent. Rate : 057 BPM Atrial Rate : 057 BPM P-R Int : 194 ms QRS Dur : 110 ms QT Int : 430 ms P-R-T Axes : 054 -45 -16 degrees QTc Int : 418 ms Sinus bradycardia Left anterior fascicular block Minimal voltage criteria for LVH, may be normal variant Abnormal ECG When compared with ECG of 09-JUL-2023 20:50, (unconfirmed) No significant change was found Confirmed by Rome Butler ([id number]) on 07/10/2023 2:12:39 PM Referred By: REFERRED SELF Confirmed By:Rome Butler
--- NOTE | 2023-07-10 17:32 | Billing Data ---
Date of Service July 10, 2023 Coding Level of Care Code 65131 IN/OBS DISCH 30 MIN/LESS
--- NOTE | 2023-07-10 17:49 | Discharge Summary ---
Date of Service July 10, 2023 Admission HPI Per Admitting Provider Payam Hill is a pleasant 73yo male with history of HTN, DM, Hypothyroidism, prior CVA with no residual deficits presenting with weakness and lightheadedness. Today is his birthday. He was going out to dinner with his daughter last night to celebrate his birthday. When he went to get out of the car he became very lightheaded and weak. His daughter thought it may be low blood sugar so they got him into the restaurant and got him something to eat and a root beer to drink. He continued to feel dizzy and lightheaded. When he went home he checked his blood sugar and it was 260. He has felt dizziness intermittently for the last two days. He reports it is mostly after postural changes. He denies headache, visual change, vertigo, chest pain, palpitations, cough, SOB. Denies abdominal pain, nausea, vomiting, diarrhea, fever or chills. No urinary complaints. No palpitations. No slurred speech, focal numbness/tingling or weakness. No falls. He reports he eats and drinks well at home but his daughters do not think he takes in enough fluids. Patient reports that he still felt slightly off while in the ER but began to feel better after receiving IVF and Magnesium. He reports he now feels back to baseline. In the ER he is afebrile, HD stable. Temperature is slightly low at 36. ER Course: Magnesium x 2gm IV NSS 500mL bolus now at 125mL/hr Admission Exam Per Admitting Provider General: patient resting comfortably, NAD, non-toxic in appearance, AA&O x 4 Skin: warm, dry, intact, no rashes or lesions HEENT: NC/AT, PERRL, EOMI, anicteric sclera, conjunctiva without injection, external ear normal to inspection and nontender, nares patent, moist mucus membranes, dentition intact, no oropharyngeal lesions, neck supple, trachea midline, no LAD, no thyromegaly, no JVD Heart: +S1/S2, regular, no m/r/g Lungs: equal air entry bilaterally, no rales/rhonchi/wheezes Abd: +BS, soft, NT/ND, no masses/organomegaly/ascites Ext: warm, 2+ pulses in UE/LE bilaterally, no clubbing/cyanosis or edema Neuro: Pt AA&O x 4, speech clear and appropriate, non facial droop, CN II-XII grossly intact, sensation to light touch intact, MS 5/5 in UE/LE bilaterally, no dysmetria, no nystagmus, negative HINTS testing Principal Diagnosis Dehydration Discharge Exam General:Alert and oriented to person and place but not time, no acute distress, HEENT: Normocephalic, moist oral mucosa, Cardio: Regular rate and rhythm, no murmur, Resp:Lungs clear to auscultation b/l, no wheezes or rhonchi, GI: Soft and nontender, nondistended, bowel sounds active Skin: Warm, pink, dry, Psych: Mood-affect congruence. Discharge Data Allergies Allergy/AdvReac Type Severity Reaction Status Date / Time No Known Allergies Allergy Verified 07/09/23 22:16 Consultations 07/10/23 00:40 ED Decision to Admit Stat Ordered Studies 07/09/23 20:16 CT head/brain wo con Stat Hospital Course (1) Dizziness: (2) Type 2 diabetes mellitus: (3) History of CVA (cerebrovascular accident): (4) HTN (hypertension): (5) Hypothyroidism: Plan Pt is a 73yo male with history of HTN, DM, Hypothyroidism, and prior CVA with no residual deficits presenting on 07/09/23 with weakness and lightheadedness. Spoke with daughter Gail in the ED at bedside. She states that while the patient lives independently, she and her sister typically come over and check on him at least daily and take care of his bills. She states that this is his baseline mental status since his last stroke and that he struggles with short term memory. She states that they have had trouble trying to get him adequate hydration and notes that he has been in the hospital before for dehydration. She states that she was hoping to take him home today if he did well with fluids overnight. Agree with plan since patient is stable at this time and back to his baseline mental status, and staying in the hospital would likely worsen his confusion. Daughter noted he became more confused when previously admitted and got better once back home. Discussed with daughter adequate hydration consisting of around 60 to 70 mL a day for him. #Lightheadedness Do not suspect new acute CVA given lack of focal symptoms and improvement with IVF and Mg. Patient is already on ASA, Plavix and Simvastatin which he is compliant with. - CXR and head CT unremarkable for acute processes -Check orthostatic VS -Continue IVF LR at 125mL/hr x 2L -Mg repleted #Hypomagnesemia - Mg=1.4, repeat 1.9 after initial repletion -Received 2gm in ER - then 1 additional gram #Diabetes With hyperglycemia. Overall fairly well controlled -Hold metformin while inpatient -Regular insulin 5u SQ now -Lantus 5u BID and ISS - goal blood sugar 110 - 140 #Hypothyroidism Plan: Chronic. -TSH 1.5 -Continue Synthroid #HTN (hypertension) Plan: Blood pressure stable, 110s-120s systolic -Continue Lisinopril -Montior -Check orthostatics VTE proph: Dispo: home Patient to resume all his home medications upon discharge. Total Time Total Time Spent Total Time Spent (In Minutes): As per attending attestation. Discharge Plan Discharge Items Patient Disposition: Home - Self-Care Reason For Visit: WEAKNESS, DIZZINESS, HYPOMAGNESEMIA Discharge Diagnosis: Dehydration Activity: Resume your previous activity Non-emergency contact: Primary Care Provider Call non-emergency contact if: you have any medication questions and your symptoms worsen Follow-up/Referrals: Juanita Morgan MD [Primary Care Provider] - Diet: Regular Addtl Attending Provider Instructions: You were admitted for weakness, lightheadedness, and low magnesium. You were treated with IV fluids and magnesium repletion. Your symptoms have improved, and we feel it is safe for you to return home. When you get home, we recommend you intake 60 to 70 mL of fluids (around 6 glasses of water) a day. Medications: Your medication list has been reviewed and reconciled upon discharge to ensure accuracy and continuity of care. An updated list of all your medications is included with your hospital discharge paperwork. Please review this list closely, and make note of any changes. If you have any issues filling these prescriptions, please call [phone] and ask to leave a message for Dr. Mcdonnell. Take your medications as instructed; do not skip a dose of your medicines. Make sure all of your doctors know every medicine you are taking (including azku-goh-lyauutu medicines, vitamins, and supplements). Call your primary care provider before taking any new medicines (including over- the-counter medicines, vitamins, and supplements), because some of these may interact with your current medications, or may make your symptoms worse. Tell your primary care provider if you cannot afford your medications. Activity: You can do normal everyday activities as your body allows. Take rest breaks if you feel tired. Do not overexert. Stop activity if you have pain, shortness of breath or feel dizzy. Follow-up appointments: Make an appointment with your primary care physician within one week of discharge. A copy of this summary will be sent to them. Every time you see your primary care physician, or any other doctor, bring your medication list, a list of questions, and your recent weights. CONTACT YOUR PRIMARY CARE PROVIDER if you experience any of the following: Shortness of breath or difficulty breathing Swelling of your feet, ankles, hands or abdomen Feeling tired with normal activity or experiencing dizziness or fainting Difficulty following your treatment plan, or difficulty taking medications CALL 911 OR GO TO THE EMERGENCY DEPARTMENT if you experience any of the following: Severe abdominal pain or nausea/vomiting Severe chest pain, or chest pain that radiates (moves) to your jaw or arm Sudden, severe shortness of breath or difficulty breathing Thank you for allowing us to participate in your care. Pending Studies at Discharge: No Stand-Alone Forms: [facility] Medications and DC Order Prescriptions: Continued clopidogrel 75 mg tablet 75 mg PO QAM Hold Instructions: Resume on 05/19/23. Patient Comments: has holding instructions metformin 500 mg tablet 1,000 mg PO BID Rx Instructions: per daughter she isn't sure if its a full 1000mg daily pantoprazole 40 mg tablet,delayed release (DR/EC) 40 mg PO QAM Qty: 90 3RF aspirin 81 mg Tablet,Delayed Release (Dr/Ec) 81 mg PO DAILY simvastatin 40 mg tablet 40 mg PO DAILY levothyroxine [Synthroid] 88 mcg tablet 88 mcg PO QAM tamsulosin 0.4 mg capsule 0.4 mg PO DAILY magnesium oxide 400 mg magnesium Tablet 400 mg PO BID calcitriol 0.25 mcg Capsule 0.25 mcg PO QAM Qty: 30 0RF (DME) OneTouch Verio test strips Strip See Rx Instructions .Route Qty: 25 2RF Rx Instructions: to test blood glucose once per day nitroglycerin 0.3 mg tablet, sublingual 0.3 mg sublingual DAILY polyethylene glycol 3350 [Miralax] 17 gram powder in packet 0 g PO DAILY PRN (Reason: constipation) Rx Instructions: OTC Per daughter surgeons said to hold off on giving him any doses. lisinopril 10 mg tablet 10 mg PO DAILY fluoxetine 40 mg capsule 40 mg PO HS Vitamin D3 Complete 18 mg iron-800 mcg-150 mg Tablet 1 tab PO DAILY Patient Comments: + vitamin c Discharge Orders: Discharge Order (Routine); Ordered 07/10/23 Ordered By: Cori Mcdonnell Admission Data Admit Date/Time: 07/10/23 00:53 Attending Provider: Daniel Prater Admit Provider: Shelly Aguirre Primary Care Provider: Juanita Morgan Other Providers: Shelly Aguirre Resident Activity Tracking Resident Involvement: Resident Care Provided Care Provided: Adult Hospital Medicine
[2023-07-10] MEDS ORDERED: FLUoxetine HCL 20 MG CAP PO SCH (21:00)
== END 2023-07-10 19:10 | disposition home or self-care (01) | DRG 641 ==
LOC: ED 20:03 → INTOOBSV 07-10 00:53 → EDINP 07-10 00:53 → SUATTDRO 07-10 00:53 → EDINP 07-10 01:44

== ENCOUNTER 2024-08-29 13:50 | Inpatient (IN) ==
--- NOTE | 2024-08-29 14:32 | Emergency Department Note ---
Impression & Plan Fall, Abnormal LFTs, Closed right humeral fracture, Hypoxia, Acute hyperglycemia ED Provider Note NAME: RADHA BREGMAN AGE: 74 SEX: M : 1950 ARRIVES VIA: Ambulance INFORMANT: Patient, EMS, the patient's daughter ED PROVIDER(S): Rome Corbett DO CHIEF COMPLAINT: Fall HPI: The patient is a 74-year-old male who presented to the emergency department for an evaluation after being found on the floor. The last time his family saw him was last evening. They think around 7 PM. They found the patient on the floor in his bathroom today. The patient complained of right shoulder pain. He arrived via ambulance. I was called to the room by nursing because the patient appeared to have significant pain as well as difficulty breathing. The patient denied having any chest pain. He denied having abdominal pain. He was not able to stand because of the pain in his right arm. He was not able to bear weight but he complains of no hip pain or lower extremity pain. The patient was placed on oxygen prior to arrival. ROS: See above HPI for pertinent positives & negatives. A total of 10 systems reviewed and were otherwise negative. PAST MEDICAL HISTORY: See Below PAST SURGICAL HISTORY: See Below FAMILY HISTORY: See Below SOCIAL HISTORY: See Below HOME MEDICATIONS: See Below ALLERGIES: See Below VITALS: See Below PHYSICAL EXAMINATION: GENERAL: The patient is awake and alert. The patient is nonanxious appearing. EYES: The conjunctivae are clear. The pupils are round and reactive. EARS, NOSE, MOUTH AND THROAT: The nose is without any evidence of any deformity. NECK: The neck is nontender and supple. RESPIRATORY: Normal respiratory effort is noted there is no evidence of wheezing rhonchi or rales CARDIOVASCULAR: Regular rate and rhythm noted there no murmurs rubs or gallops normal S1 normal S2. GASTROINTESTINAL: The abdomen is soft. Abdomen is nontender. MUSCULOSKELETAL/EXTREMITIES: There was swelling and ecchymosis over the right humeral head. Range of motion was limited secondary to pain. There is no pain in the right elbow or right forearm. SKIN: Skin was warm and dry. Pulses are symmetric in both feet. NEUROLOGIC: Patient is awake and oriented to person and place. He did recognize his daughters and knew their names. The patient was able to do simple math. Strength was symmetric. There is no facial droop. MEDICAL DECISION MAKING: The is a 74-year-old male who presented to the emergency department for an evaluation after a fall. He was found on his floor by family members. The patient was found to have a proximal right humerus fracture. The patient was treated with pain medication in the emergency department. He was placed on supplemental oxygen. The patient was reevaluated multiple times. He did appear to have some signs of infection suggested by laboratory studies. He was treated with IV fluids as well as IV antibiotics. He was found to have elevated liver function studies. For this reason further radiographic studies were obtained as well as trauma studies to ensure there is no intracranial or cervical spine injury. The patient was found of possible choledocholithiasis. His exam is not consistent with ascending cholangitis. I discussed his condition with the on- call dynamics ax solution architect. I also discussed his condition with the on-call [facility] hospitalist. They have agreed to evaluate the patient in the emergency department for further management and disposition. Triage Nursing notes reviewed. Prior medical records reviewed Vital Signs: reviewed and remarkable for initial hypoxia. Differential diagnosis: Infection, hypoglycemia, electrolyte abnormalities, overdose, toxicologic, cardiac sources, intracerebral event, neurologic, trauma, as well as other pathologies. ER treatment provided: See below Diagnostics interpreted by me: ECG: EKG was obtained in the emergency department. My interpretation is sinus tachycardia at 101 bpm. There was no ectopy. LVH was noted by voltage criteria. This was compared to a tracing from July 09, 2023. There is an increase in the rate otherwise no changes were noted. Cardiac Monitoring: An order was placed for continuous cardiac monitoring. The monitor shows a rate of 70 bpm with sinus rhythm. Laboratory studies: As stated above and show below. Imaging studies: See below. Radiographic imaging was reviewed by myself Consultation(s): I discussed this case with Dr Montero who is on-call for gastroenterology. I discussed this case with Dr. Bazan [facility] COURSE: Procedures: none Critical Care: I have personally spent greater than 45 minutes of critical care time in the direct management of this patient. This includes bedside care, interpretation of diagnostic studies, and testing, discussion with consultants, patient, and family members, and other required patient management activities. This 45 minutes is in excess of all separately billable procedures. Past Med/Surg History Problem List (Updated 08/29/24 @ 18:26 by Rome Corbett DO) Acute hyperglycemia (Acute) Hypoxia (Acute) Closed right humeral fracture (Acute) Abnormal LFTs (Acute) Fall (Acute) Hypomagnesemia (Acute) Dizziness (Acute) Gait instability (Acute) Status post umbilical hernia repair, follow-up exam Status post laparoscopic cholecystectomy Abscess, intra-abdominal, postoperative (Acute) Acute pancreatitis (Acute) Elevated troponin (Acute) Acute postoperative abdominal pain (Acute) Encounter for pre-operative examination Groin strain (Acute) Popliteal artery aneurysm (Acute) Borderline high cholesterol Malignant melanoma (Acute) Surgical wound, non healing (Acute) Esophageal dysphagia Type 2 diabetes mellitus History of CVA (cerebrovascular accident) Hypocalcemia Depression Vitamin D deficiency Splenic infarct Swelling of right upper extremity Gallstone pancreatitis Umbilical hernia Hypothyroidism HTN (hypertension) Medical History Dizziness Diabetes mellitus, type 2 Depression Hx of melanoma of skin Choledocholithiasis Acute pancreatitis Hospitalized 03/2023 > acute kidney/liver failure Borderline hyperlipidemia Poor historian phone interview done by pts daughter History of COVID-19 11/16- congestion > resolved 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 Hood Enlarged prostate Diabetes TIA (transient ischemic attack) x2, Most recent 8+ years ago- residual problems with taking longer to process info Surgical History H/O umbilical hernia repair (05/16/23) p Laparoscopic Cholecystectomy(Not Applicable) - Deepak Pickering DO s and Open Umbilical Hernia Repair(Not Applicable) - Deepak Pickering DO Hx laparoscopic cholecystectomy (05/16/23) p Laparoscopic Cholecystectomy(Not Applicable) - Deepak Pickering DO s and Open Umbilical Hernia Repair(Not Applicable) - Deepak Pickering DO Family history of reaction to anesthesia daughter > post-op nausea History of esophagogastroduodenoscopy (EGD) History of ERCP + stent (plans for removal after lap [place]) S/P colonoscopy S/P hernia repair inguinal Social History Smoking Status: Former smoker Tobacco Type: Cigarettes Cigarettes Per Day: quit smoking 40+ years; Second Hand Exposure: No; Do You Dip or Chew Tobacco: No; Hx Alcohol Use: No Hx Substance Use: No Preferred Language: Thai Communication Ability: Effective Visual Impairment: No Limitations Hearing Ability: Normal 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 Beliefs That Will Affect Care: None marital status: Current Living Situation: Alone Current Living Situation Comment: dtr goes to drs appointments - he lives by himself current occupational status: retired Feels Safe at Home: Yes Assistive Devices: Glasses Allergies Allergies Allergy/AdvReac Type Severity Reaction Status Date / Time No Known Allergies Allergy Verified 07/09/23 22:16 Home Meds Home Medications Medication Instructions Recorded Confirmed clopidogrel 75 mg tablet 75 mg PO QAM 08/17/20 07/09/23 metformin 500 mg tablet 1,000 mg PO BID 08/17/20 07/09/23 aspirin 81 mg tablet,delayed 81 mg PO DAILY 03/31/23 07/09/23 release levothyroxine 88 mcg tablet 88 mcg PO QAM 03/31/23 07/09/23 (Synthroid) magnesium oxide 400 mg PO BID 03/31/23 07/09/23 simvastatin 40 mg tablet 40 mg PO DAILY 03/31/23 07/09/23 tamsulosin 0.4 mg capsule 0.4 mg PO DAILY 03/31/23 07/09/23 fluoxetine 40 mg capsule 40 mg PO HS 05/12/23 07/09/23 multivit with 1 tab PO DAILY 05/12/23 07/09/23 [id number] 18 mg iron-800 mcg-150 mg tablet (Vitamin D3 Complete) nitroglycerin 0.3 mg sublingual 0.3 mg sublingual DAILY 05/20/23 07/09/23 tablet polyethylene glycol 3350 17 gram 0 g PO DAILY PRN constipation 05/20/23 07/09/23 oral powder packet (Miralax) lisinopril 10 mg tablet 10 mg PO DAILY 07/09/23 07/09/23 Previous Rx's Medication Instructions Recorded blood sugar diagnostic (OneTouch #25 ea 04/14/23 Verio test strips) calcitriol 0.25 mcg capsule 0.25 mcg PO QAM #30 caps 04/14/23 pantoprazole 40 mg tablet,delayed 40 mg PO QAM #90 tabs 06/08/23 release Results & Data (ED) Vital Signs Vital Signs - 24 hr 08/29/24 13:56 08/29/24 14:03 08/29/24 15:00 Temperature 36.6 C Temperature Source Oral Pulse Rate 99 H 100 H Pulse Rate [Finger] 100 H Respiratory Rate 42 H 34 H Blood Pressure 142/102 H Blood Pressure [Right Arm] 120/92 Blood Pressure Mean 115 Blood Pressure Mean [Right Arm] 101 Pulse Oximetry 85 L 86 L Oxygen Delivery Method Room Air Oxymask Oxygen Flow Rate 8 Sepsis Recent Fever Within 48 Hours No Sepsis New/Unexplained Change in Mental Status Yes Sepsis Action Taken by Nursing Physician Notified 08/29/24 15:24 08/29/24 15:43 08/29/24 16:00 Temperature Temperature Source Pulse Rate Pulse Rate [Finger] 75 73 Respiratory Rate 32 H 26 H 26 H Blood Pressure Blood Pressure [Right Arm] 149/86 H 136/86 Blood Pressure Mean Blood Pressure Mean [Right Arm] 107 102 Pulse Oximetry 94 100 100 Oxygen Delivery Method Non-rebreather Non-rebreather Non-rebreather Oxygen Flow Rate 15 Sepsis Recent Fever Within 48 Hours Sepsis New/Unexplained Change in Mental Status Sepsis Action Taken by Nursing 08/29/24 16:30 08/29/24 17:00 08/29/24 18:02 Temperature Temperature Source Pulse Rate 70 Pulse Rate [Finger] 73 71 Respiratory Rate 24 22 Blood Pressure Blood Pressure [Right Arm] 140/85 141/87 H Blood Pressure Mean Blood Pressure Mean [Right Arm] 103 105 Pulse Oximetry 100 95 Oxygen Delivery Method Non-rebreather Room Air Oxygen Flow Rate Sepsis Recent Fever Within 48 Hours Sepsis New/Unexplained Change in Mental Status Sepsis Action Taken by Snf Medications Current Medication List: was personally reviewed by me Laboratory Data Attestation: I reviewed the patient's lab results. 08/29/24 14:02 08/29/24 14:02 Lab Results 08/29/24 08/29/24 08/29/24 Range/Units 14:02 14:27 14:43 WBC 7.60 (4.8-10.8) K/ul RBC 5.12 (4.70-6.10) M/uL Hgb 15.7 (14.0-18.0) g/dl Hct 45.3 (42.0-52.0) % MCV 88.5 (80.0-100.0) fL MCH 30.7 (25.0-34.0) pg MCHC 34.7 (32.0-36.0) g/dL RDW Std Deviation 51.8 H (36.4-46.3) fL RDW Coeff of Dinorah 15.9 H (11.5-14.5) % Plt Count 180 (130-400) K/uL MPV 10.8 (9.4-12.4) fL Immature Gran % (Auto) 0.4 % Neut % (Auto) 87.8 % Lymph % (Auto) 4.7 % [place] % (Auto) 7.0 % Eos % (Auto) 0.0 % Baso % (Auto) 0.1 % Neut # (Auto) 6.67 H (1.40-6.50) K/uL Lymph # (Auto) 0.36 L (1.20-3.40) K/uL [place] # (Auto) 0.53 (0.11-0.59) K/uL Eos # (Auto) 0.00 (0.00-0.50) K/uL Baso # (Auto) 0.01 (0.00-0.20) K/uL Immature Gran # (Auto) 0.03 (0.01-0.20) K/uL PT 11.4 (9.0-12.0) Seconds INR 1.1 (0.9-1.1) APTT 28 (21-31) Seconds PTT Ratio 1.0 VBG pH 7.46 H (7.36-7.41) VBG pCO2 20 L (38-50) mmHg VBG pO2 37 mmHg VBG HCO3 14 mmol/L VBG O2 Saturation 67.5 % VBG Base Excess -7.3 mEq/L Sodium 137 (136-145) mmol/L Potassium 4.6 (3.5-5.1) mmol/L Chloride 100 (98-107) mmol/L Carbon Dioxide 18 L (21-32) mmol/L Anion Gap 19 H (3-11) BUN 17 (6-23) mg/dl Creatinine 1.05 (0.6-1.4) mg/dl Est Cr Clr Drug Dosing 67.7 ml/min eGFR 74.49 BUN/Creatinine Ratio 16.2 (10-20) Glucose 400 H* (70-99(Fasting)) mg/dl POC Glucose (70-99) mg/dl Lactate 4.6 H* (0.4-2.0) mmol/L Calcium 9.4 (8.6-10.3) mg/dl Magnesium 1.7 (1.7-2.4) mg/dl Total Bilirubin 2.5 H (0.2-1.0) mg/dl Direct Bilirubin 0.6 H (0-0.2) mg/dl AST 209 H (13-39) U/L ALT 396 H (7-52) U/L Alkaline Phosphatase 160 H (34-104) U/L Total Creatine Kinase 139 (30-223) U/L Troponin I High Sens 19.4 (0-20) pg/ml Total Protein 7.9 (6.0-8.3) gm/dl Albumin 4.6 (3.4-5.0) gm/dl Lipase 8 L (11-82) U/L Procalcitonin 1.41 H (0-0.5) ng/ml Urine Color [place] Urine Appearance Clear (Clear) Urine pH 5.0 (4.5-7.5) Ur Specific [place] 1.045 H (1.000-1.030) Urine Protein Trace H (Negative) Urine Glucose (UA) 3+ H (Negative) Urine Ketones 2+ H (Negative) Urine Blood Negative (Negative) Urine Nitrite Negative (Negative) Urine Bilirubin Negative (Negative) Urine Urobilinogen Negative (Negative) Ur Leukocyte Esterase Negative (Negative) Urine WBC (Auto) 0-5 (0-5) /hpf Urine RBC (Auto) 0-2 (0-2) /hpf U Hyaline Cast (Auto) 0-2 (0-2) /lpf U Epithel Cells (Auto) 0-2 (0-2) /hpf Urine Bacteria (Auto) None Seen (None Seen) SARS-CoV-2 (PCR) NEGATIVE (Negative) Influenza Type A (PCR) Negative (Neg) Influenza Type B (PCR) Negative (Neg) RSV (RT-PCR) Negative (Neg) 08/29/24 08/29/24 Range/Units 17:07 18:11 WBC (4.8-10.8) K/ul RBC (4.70-6.10) M/uL Hgb (14.0-18.0) g/dl Hct (42.0-52.0) % MCV (80.0-100.0) fL MCH (25.0-34.0) pg MCHC (32.0-36.0) g/dL RDW Std Deviation (36.4-46.3) fL RDW Coeff of Dinorah (11.5-14.5) % Plt Count (130-400) K/uL MPV (9.4-12.4) fL Immature Gran % (Auto) % Neut % (Auto) % Lymph % (Auto) % [place] % (Auto) % Eos % (Auto) % Baso % (Auto) % Neut # (Auto) (1.40-6.50) K/uL Lymph # (Auto) (1.20-3.40) K/uL [place] # (Auto) (0.11-0.59) K/uL Eos # (Auto) (0.00-0.50) K/uL Baso # (Auto) (0.00-0.20) K/uL Immature Gran # (Auto) (0.01-0.20) K/uL PT (9.0-12.0) Seconds INR (0.9-1.1) APTT (21-31) Seconds PTT Ratio VBG pH (7.36-7.41) VBG pCO2 (38-50) mmHg VBG pO2 mmHg VBG HCO3 mmol/L VBG O2 Saturation % VBG Base Excess mEq/L Sodium (136-145) mmol/L Potassium (3.5-5.1) mmol/L Chloride (98-107) mmol/L Carbon Dioxide (21-32) mmol/L Anion Gap (3-11) BUN (6-23) mg/dl Creatinine (0.6-1.4) mg/dl Est Cr Clr Drug Dosing ml/min eGFR BUN/Creatinine Ratio (10-20) Glucose (70-99(Fasting)) mg/dl POC Glucose 276 H (70-99) mg/dl Lactate 2.6 H* (0.4-2.0) mmol/L Calcium (8.6-10.3) mg/dl Magnesium (1.7-2.4) mg/dl Total Bilirubin (0.2-1.0) mg/dl Direct Bilirubin (0-0.2) mg/dl AST (13-39) U/L ALT (7-52) U/L Alkaline Phosphatase (34-104) U/L Total Creatine Kinase (30-223) U/L Troponin I High Sens (0-20) pg/ml Total Protein (6.0-8.3) gm/dl Albumin (3.4-5.0) gm/dl Lipase (11-82) U/L Procalcitonin (0-0.5) ng/ml Urine Color Urine Appearance (Clear) Urine pH (4.5-7.5) Ur Specific [place] (1.000-1.030) Urine Protein (Negative) Urine Glucose (UA) (Negative) Urine Ketones (Negative) Urine Blood (Negative) Urine Nitrite (Negative) Urine Bilirubin (Negative) Urine Urobilinogen (Negative) Ur Leukocyte Esterase (Negative) Urine WBC (Auto) (0-5) /hpf Urine RBC (Auto) (0-2) /hpf U Hyaline Cast (Auto) (0-2) /lpf U Epithel Cells (Auto) (0-2) /hpf Urine Bacteria (Auto) (None Seen) SARS-CoV-2 (PCR) (Negative) Influenza Type A (PCR) (Neg) Influenza Type B (PCR) (Neg) RSV (RT-PCR) (Neg) Administered Medications Discontinued Medications Sodium Chloride (Nss) 1,000 mls @ 999 mls/hr IV .Q1H1M ONE Stop: 08/29/24 16:16 Last Infusion: 08/29/24 16:58 Dose: Infused Documented By: Admin: 08/29/24 15:50 Dose: 999 mls/hr Documented By: ISABELLE Piperacillin Sod/Tazobactam Sod (Zosyn) 4.5 gm in 100 mls @ 200 mls/hr IV NOW ONE Stop: 08/29/24 15:45 Last Infusion: 08/29/24 16:23 Dose: Infused Documented By: Admin: 08/29/24 15:50 Dose: 200 mls/hr Documented By: ISABELLE Sodium Chloride (Nss) 1,000 mls @ 999 mls/hr IV .Q1H1M ONE Stop: 08/29/24 17:46 Last Infusion: 08/29/24 18:05 Dose: Infused Documented By: Admin: 08/29/24 16:53 Dose: 999 mls/hr Documented By: ISABELLE Sodium Chloride (Nss) 500 mls @ 999 mls/hr IV .Q31M ONE Stop: 08/29/24 17:16 Last Infusion: 08/29/24 18:06 Dose: Infused Documented By: Admin: 08/29/24 16:54 Dose: 999 mls/hr Documented By: ISABELLE Ioversol (Optiray 320 125ml) 119 ml IV ONCE ONE Stop: 08/29/24 15:36 Last Admin: 08/29/24 15:35 Dose: 119 ml Documented By: KATLYN Imaging Data Attestation: I personally reviewed and interpreted this imaging study as follows: My Impression: CT the brain was obtained in the emergency department. My interpretation is no intracranial hemorrhage or mass effect, final report below. CT of the chest was obtained in the emergency department. My interpretation is no free air or definite infiltrate, final report below. X-ray of the chest and right shoulder were obtained in the emergency department. My interpretation is proximal right humerus fracture, final report below. Radiologist's Impression: Cervical Spine CT 08/29/24 14:19 CT cervical spine wo con CLINICAL HISTORY: 74 years-old Male with fall. Acute neck injury status post fall COMPARISON: Head CT of same day, CT cervical spine June 28, 2022 TECHNIQUE: Multiple axial CT images of the cervical spine were obtained without contrast. A dose lowering technique was utilized adhering to the principles of ALARA. FINDINGS: Multilevel degenerative changes of the cervical spine include moderate disc space narrowing at C5-C6. There is a moderate-sized posterior disc osteophyte complex at C4-C5. Multilevel facet arthrosis is predominantly moderate. Suboptimal dilation of the central canal and neural foramen by CT technique. The cervical soft tissues appear unremarkable. The visualized lung apices appear clear. IMPRESSION: No acute cervical spine fracture or subluxation identified. ACT 112: Negative or not required by law. The above report was generated using voice recognition software. It may contain grammatical, syntax or spelling errors. Electronically signed by: Shan Reed M.D. 08/29/2024 4:[address] 08/29/24 14:19 CT SCAN OF THE BRAIN WITHOUT IV CONTRAST CLINICAL HISTORY: Change in mental status. COMPARISON STUDY: CT of the brain dated 07/09/2023. TECHNIQUE: Unenhanced axial CT scan of the brain is performed from the vertex to the skull base. A dose lowering technique was utilized adhering to the principles of ALARA. FINDINGS: Brain parenchyma: There is age-related involutional change noting mild subcortical and periventricular microangiopathic disease. There is no hemorrhage, mass effect, or evidence of acute territorial ischemia by CT criteria. 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 There is also a chronic lacunar infarct in the left thalamus. Garcia-white matter differentiation is preserved. No extra-axial fluid collection is seen. Ventricles, sulci, cisterns: Prominent secondary to involutional change. Intracranial vasculature: There is atherosclerotic calcification of the cavernous carotid and vertebral artery. Calvarium: Unremarkable. Sinuses and mastoids: The visualized paranasal sinuses are clear. The mastoid air cells are well pneumatized. Orbits: The bony orbits are grossly intact. IMPRESSION: There is no hemorrhage, mass effect, or evidence of acute territorial ischemia by CT criteria. ACT 112: Negative or not required by law. Electronically signed by: Stephen Devlin M.D. 08/29/2024 3:48 PM Shoulder X-Ray 08/29/24 14:19 XR shoulder RT min 2V routine HISTORY: 74 years-old Male fall acute right shoulder pain status post fall COMPARISON: Chest radiograph 07/09/2023 TECHNIQUE: 2 views of the right shoulder FINDINGS: There is no acute proximal metadiaphyseal right humeral fracture deformity which demonstrates 12 mm medial displacement with apex medial angulation and volar displacement of approximately 2 cm. No dislocation. Moderate osteoarthritis with mild soft tissue swelling. IMPRESSION: Acute angulated and displaced proximal metadiaphyseal humeral fracture. No dislocation. ACT 112: Negative or not required by law. The above report was generated using voice recognition software. It may contain grammatical, syntax or spelling errors. Electronically signed by: Shan Reed M.D. 08/29/2024 3:35 PM Chest X-Ray 08/29/24 14:20 XR chest 1V portable CLINICAL HISTORY: Sepsis. COMPARISON STUDY: Chest CT May 23, 2023. Chest radiograph July 09, 2023. FINDINGS: Lung volumes are normal. Lungs are clear. There is no pneumothorax or pleural effusion. Cardiac size is normal. Mediastinal contours are normal. There is no evidence for pulmonary edema. There are left axillary surgical clips. IMPRESSION: No acute cardiopulmonary findings. ACT 112: Negative or not required by law. Electronically signed by: Valente Manriquez M.D. 08/29/2024 3:40 PM Abdomen/Pelvis CT 08/29/24 15:16 CT SCAN OF THE ABDOMEN AND PELVIS WITH IV CONTRAST CLINICAL HISTORY: Sepsis. Follow-up. COMPARISON STUDY: Abdominal CT dated 05/20/2023. TECHNIQUE: Following the IV administration of 119 cc of Optiray 320, CT scan of the abdomen and pelvis is performed from the lung bases to the proximal femora. Images are reviewed in the axial, sagittal, and coronal planes. IV contrast was administered without complication. A dose lowering technique was utilized adhering to the principles of ALARA. The examination is degraded by streak artifact from the arms which could not be elevated above the abdomen. CT DOSE: 3512.73 mGy.cm FINDINGS: Lung bases: The heart is top normal in size and without pericardial effusion. The coronary arteries are densely calcified. There is mild bibasilar scarring/atelectasis. No airspace consolidation or pleural effusion is identified. A 3 mm left basilar pulmonary nodule image #49 is unchanged. A small hiatal hernia is noted. Liver: The contrast-enhanced liver is normal in size, contour, and attenuation. There is no intrahepatic biliary ductal dilatation. The hepatic veins and portal veins are patent. Gallbladder: Surgically absent. There is stones/debris within the distal common bile duct seen on axial image #137. Spleen: The spleen is mildly enlarged measuring 14 cm in length. Pancreas: The pancreas is moderately atrophic. A multiloculated cystic collection along the anterior aspect of the pancreas measures approximately 7 x 3 cm as seen on axial image #129. This is increasingly organized/cystic from the 05/20/2023 examination and likely represents a pseudocyst. An additional 2 cm pseudocyst is seen adjacent to pancreatic head on image #166. Trace pseudocyst is also seen above the celiac trunk on image #119. Adrenal glands: Unremarkable. Kidneys: The contrast enhanced kidneys are normal in size and without hydronephrosis. The kidneys enhance symmetrically. A 4.1 cm cyst arises from the left lower pole. Additional subcentimeter cortical hypodensities also likely represent cysts but are too small for definitive characterization. Abdominal vasculature: There is advanced atherosclerotic calcification and ectasia of the abdominal aorta. A thrombosed saccular aneurysm of the midabdominal aorta measuring up to 3.0 cm is unchanged. There is aneurysm dilatation of the left common iliac artery which measures up to 2.7 cm. Bowel: There is mild to moderate colonic diverticulosis without CT evidence of acute diverticulitis. No bowel obstruction is seen. Mild fecal retention is noted throughout the colon. The appendix is well-visualized and normal. Peritoneum: There is no intraperitoneal free air or abdominal ascites. Lymphadenopathy: None. Pelvic viscera: The prostate gland is enlarged and heterogeneous. The bladder wall appears thickened/trabeculated indicating chronic outlet obstruction. A urachal remnant is seen at the bladder dome. There is a large fat-containing left inguinal hernia, as well as evidence of prior right inguinal herniorrhaphy. Skeletal structures: The skeletal structures are osteopenic there the lumbosacral spine, bony pelvis, and proximal femora appear intact. There is mild to moderate lumbosacral spondylosis. Changes also seen in the sacroiliac joints. No lytic or blastic lesions are seen. There are chronic/healed right-sided rib fractures. IMPRESSION: 1. No acute infectious or inflammatory findings are identified in the abdomen or pelvis. 2. There is no evidence of solid organ injury in the abdomen or pelvis. 3. There are peripancreatic fluid collections as above which are increasingly organized/cystic as compared to the 05/20/2023 examination. These likely represent pseudocysts. Nonemergent GI follow-up is advised. 4. There is evidence of choledocholithiasis, with stones/debris seen within the distal common bile duct. This can also be assessed by GI. 5. Colonic diverticulosis without CT evidence of acute diverticulitis. 6. 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 7. Mild splenomegaly. 8. Additional findings as above. ACT 112: Negative or not required by law. Electronically signed by: Stephen Devlin M.D. 08/29/2024 4:36 PM Chest CTA 08/29/24 15:16 CT ANGIOGRAPHY OF THE CHEST, PULMONARY EMBOLUS PROTOCOL CLINICAL HISTORY: Fall. Sepsis. COMPARISON STUDY: Chest radiograph performed earlier today. Chest CT May 03, 2023. TECHNIQUE: Following IV administration of 119 mL of Optiray, helical axial images of the chest were obtained utilizing the pulmonary embolus protocol. Maximal intensity projections and sagittal and coronal reformats were viewed on an independent 3D workstation. IV contrast was administered without complication. Automated exposure control was utilized for the study. A dose lowering technique was utilized adhering to the principles of ALARA. FINDINGS: No pulmonary emboli are identified. The heart is mildly enlarged. Extensive coronary artery calcification is again noted. There is no pericardial effusion. Dilatation of the ascending aorta measuring 4.1 cm is similar to prior exam. There is no pneumothorax or pleural effusion. Lungs are suboptimally assessed due to respiratory motion. There is no consolidation to suggest pneumonia. There is no pneumothorax or pleural effusion. No acute rib or thoracic spine fractures are noted. There is an acute displaced proximal diaphyseal right humeral fracture. Moderate surrounding hemorrhage is present. This contains tiny hypodensities likely reflecting bone fragments. IMPRESSION: 1. No pulmonary emboli identified. 2. No consolidation to suggest pneumonia. Lungs suboptimally assessed due to respiratory motion. 3. Acute displaced fracture of the proximal diaphysis of the right humerus with moderate surrounding hemorrhage. ACT 112: Negative or not required by law. Electronically signed by: Valente Manriquez M.D. 08/29/2024 3:56 PM Discharge Plan Visit Data Chief Complaint: Fall Stated Complaint: FALL, R ARM PAIN ED Provider: Rome Corbett Discharge Problem: Fall, Abnormal LFTs, Closed right humeral fracture, Hypoxia, Acute hyperglycemia Patient Disposition: Being Evaluated by Hospitalist Forms Stand Alone Forms: [facility] [place] [employer] Prescriptions Prescriptions: No Action clopidogrel 75 mg tablet 75 mg PO QAM Hold Instructions: Resume on 05/19/23. Patient Comments: has holding instructions metformin 500 mg tablet 1,000 mg PO BID Rx Instructions: per daughter she isn't sure if its a full 1000mg daily pantoprazole 40 mg tablet,delayed release (DR/EC) 40 mg PO QAM Qty: 90 3RF aspirin 81 mg Tablet,Delayed Release (Dr/Ec) 81 mg PO DAILY simvastatin 40 mg tablet 40 mg PO DAILY levothyroxine [Synthroid] 88 mcg tablet 88 mcg PO QAM tamsulosin 0.4 mg capsule 0.4 mg PO DAILY magnesium oxide 400 mg magnesium Tablet 400 mg PO BID calcitriol 0.25 mcg Capsule 0.25 mcg PO QAM Qty: 30 0RF (DME) OneTouch Verio test strips Strip See Rx Instructions .Route Qty: 25 2RF Rx Instructions: to test blood glucose once per day nitroglycerin 0.3 mg tablet, sublingual 0.3 mg sublingual DAILY polyethylene glycol 3350 [Miralax] 17 gram powder in packet 0 g PO DAILY PRN (Reason: constipation) Rx Instructions: OTC Per daughter surgeons said to hold off on giving him any doses. lisinopril 10 mg tablet 10 mg PO DAILY fluoxetine 40 mg capsule 40 mg PO HS Vitamin D3 Complete 18 mg iron-800 mcg-150 mg Tablet 1 tab PO DAILY Patient Comments: + vitamin c Referrals Referrals: Juanita Morgan MD [Primary Care Provider] - Discharge Problem: Fall Qualifiers: Encounter type: initial encounter Qualified Code(s): W19.XXXA - Unspecified fall, initial encounter Closed right humeral fracture Qualifiers: Encounter type: initial encounter Humerus Location: proximal Fracture morphology: unspecified fracture morphology Qualified Code(s): S42.201A - Unspecified fracture of upper end of right humerus, initial encounter for closed fracture
[2024-08-29 14:43] LABS: Basophils # (auto) 0.01 K/uL (0.00-0.20); Basophils % (auto) 0.1 %; Hematocrit (blood only) 45.3 % (42.0-52.0); Hemoglobin 15.7 g/dl (14.0-18.0); Immature Granulocytes # (auto) 0.03 K/uL (0.01-0.20); Immature Granulocytes % (auto) 0.4 %; Lymphocytes # (auto) 0.36 K/uL (1.20-3.40); Lymphocytes % (auto) 4.7 %; Mean Corpuscular Hemoglobin 30.7 pg (25.0-34.0); Mean Corpuscular Hgb Conc 34.7 g/dL (32.0-36.0); Mean Corpuscular Volume 88.5 fL (80.0-100.0); Mean Platelet Volume 10.8 fL (9.4-12.4); Monocytes # (auto) 0.53 K/uL (0.11-0.59); Neutrophils # (auto) 6.67 K/uL (1.40-6.50); Neutrophils % (auto) 87.8 %; Platelet Count 180 K/uL (130-400); RDW Coefficient of Variation 15.9 % (11.5-14.5); RDW Standard Deviation 51.8 fL (36.4-46.3); Red Blood Count 5.12 M/uL (4.70-6.10)
[2024-08-29 14:47] LABS: Appearance Urine Clear (Clear); Bacteria Urine Automated None Seen (None Seen); Bilirubin Urine Negative (Negative); Blood Urine Negative (Negative); Cast Urine Automated 0-2 /lpf (0-2); Color Urine Orange; Epithelial Cell Urine Auto 0-2 /hpf (0-2); Glucose Urine UA 3+ (Negative); Ketones Urine 2+ (Negative); Leukocyte Esterase Urine Negative (Negative); Nitrite Urine Negative (Negative); Protein Urine Trace (Negative); RBC Urine Automated 0-2 /hpf (0-2); Specific Gravity Urine 1.045 (1.000-1.030); Urobilinogen Urine Negative (Negative); WBC Urine Automated 0-5 /hpf (0-5)
[2024-08-29 15:05] LABS: Base Excess VBG -7.3 mEq/L; HCO3 VBG 14 mmol/L; Oxygen Saturation VBG 67.5 %; PCO2 VBG 20 mmHg (38-50); PO2 VBG 37 mmHg; pH VBG 7.46 (7.36-7.41)
[2024-08-29 15:13] LABS: Influenza A virus by PCR Negative (Neg); Influenza B virus by PCR Negative (Neg); RSV by PCR Negative (Neg); SARS CoV2 RNA(COVID-19) Ceph NEGATIVE (Negative)
[2024-08-29 15:15] LABS: Albumin Level 4.6 gm/dl (3.4-5.0); BUN Creatinine Ratio 16.2 (10-20); Bilirubin Direct 0.6 mg/dl (0-0.2); Bilirubin,Total 2.5 mg/dl (0.2-1.0); Calcium 9.4 mg/dl (8.6-10.3); Creatinine Clr Calc Pharmacy 67.7 ml/min; Magnesium 1.7 mg/dl (1.7-2.4); Potassium 4.6 mmol/L (3.5-5.1); Total Protein 7.9 gm/dl (6.0-8.3); Troponin I High Sensitivity 19.4 pg/ml (0-20)
[2024-08-29 15:16] LABS: INR 1.1 (0.9-1.1); Partial Thromboplastin Time 28 Seconds (21-31); Prothrombin Time 11.4 Seconds (9.0-12.0)
[2024-08-29] MEDS: OPTIRAY 320 125ml IV ONE (15:35)
--- NOTE | 2024-08-29 15:38 | XRay Report ---
XR shoulder RT min 2V routine HISTORY: 74 years-old Male fall acute right shoulder pain status post fall COMPARISON: Chest radiograph 07/09/2023 TECHNIQUE: 2 views of the right shoulder FINDINGS: There is no acute proximal metadiaphyseal right humeral fracture deformity which demonstrates 12 mm m edial displacement with apex medial angulation and volar displacement of approximately 2 cm. No dislo cation. Moderate osteoarthritis with mild soft tissue swelling. IMPRESSION: Acute angulated and displaced proximal metadiaphyseal humeral fracture. No dislocation. ACT 112: Negative or not required by law. The above report was generated using voice recognition software. It may contain grammatical, syntax o r spelling errors. Electronically signed by: Shan Reed M.D. 08/29/2024 3:35 PM
--- NOTE | 2024-08-29 15:43 | XRay Report ---
XR chest 1V portable CLINICAL HISTORY: Sepsis. COMPARISON STUDY: Chest CT May 23, 2023. Chest radiograph July 09, 2023. FINDINGS: Lung volumes are normal. Lungs are clear. There is no pneumothorax or pleural effusion. Car diac size is normal. Mediastinal contours are normal. There is no evidence for pulmonary edema. There are left axillary surgical clips. IMPRESSION: No acute cardiopulmonary findings. ACT 112: Negative or not required by law. Electronically signed by: Valente Manriquez M.D. 08/29/2024 3:40 PM
[2024-08-29] MEDS: SODIUM CHLORIDE 0.9% 1,000 ML IV ONE ×2 (15:50→16:53)
[2024-08-29] MEDS: PIPERACILLIN/TAZOBACTAM 4.5 GM/100 ML BAG IV ONE (15:50)
--- NOTE | 2024-08-29 15:50 | CT Scan Report ---
CT SCAN OF THE BRAIN WITHOUT IV CONTRAST CLINICAL HISTORY: Change in mental status. COMPARISON STUDY: CT of the brain dated 07/09/2023. TECHNIQUE: Unenhanced axial CT scan of the brain is performed from the vertex to the skull base. A do se lowering technique was utilized adhering to the principles of ALARA. FINDINGS: Brain parenchyma: There is age-related involutional change noting mild subcortical and periventricula r microangiopathic disease. There is no hemorrhage, mass effect, or evidence of acute territorial isc hemia by CT criteria. 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 There is also a c hronic lacunar infarct in the left thalamus. Garcia-white matter differentiation is preserved. No extra -axial fluid collection is seen. Ventricles, sulci, cisterns: Prominent secondary to involutional change. Intracranial vasculature: There is atherosclerotic calcification of the cavernous carotid and vertebr al artery. Calvarium: Unremarkable. Sinuses and mastoids: The visualized paranasal sinuses are clear. The mastoid air cells are well pneu matized. Orbits: The bony orbits are grossly intact. IMPRESSION: There is no hemorrhage, mass effect, or evidence of acute territorial ischemia by CT anival campbell. ACT 112: Negative or not required by law. Electronically signed by: Stephen Devlin M.D. 08/29/2024 3:48 PM
--- NOTE | 2024-08-29 15:57 | CT Scan Report ---
CT ANGIOGRAPHY OF THE CHEST, PULMONARY EMBOLUS PROTOCOL CLINICAL HISTORY: Fall. Sepsis. COMPARISON STUDY: Chest radiograph performed earlier today. Chest CT May 03, 2023. TECHNIQUE: Following IV administration of 119 mL of Optiray, helical axial images of the chest were o btained utilizing the pulmonary embolus protocol. Maximal intensity projections and sagittal and cor onal reformats were viewed on an independent 3D workstation. IV contrast was administered without co mplication. Automated exposure control was utilized for the study. A dose lowering technique was ut ilized adhering to the principles of ALARA. FINDINGS: No pulmonary emboli are identified. The heart is mildly enlarged. Extensive coronary arter y calcification is again noted. There is no pericardial effusion. Dilatation of the ascending aorta m easuring 4.1 cm is similar to prior exam. There is no pneumothorax or pleural effusion. Lungs are sub optimally assessed due to respiratory motion. There is no consolidation to suggest pneumonia. There i s no pneumothorax or pleural effusion. No acute rib or thoracic spine fractures are noted. There is a n acute displaced proximal diaphyseal right humeral fracture. Moderate surrounding hemorrhage is pres ent. This contains tiny hypodensities likely reflecting bone fragments. IMPRESSION: 1. No pulmonary emboli identified. 2. No consolidation to suggest pneumonia. Lungs suboptimally assessed due to respiratory motion. 3. Acute displaced fracture of the proximal diaphysis of the right humerus with moderate surrounding hemorrhage. ACT 112: Negative or not required by law. Electronically signed by: Valente Manriquez M.D. 08/29/2024 3:56 PM
--- NOTE | 2024-08-29 16:14 | CT Scan Report ---
CT cervical spine wo con CLINICAL HISTORY: 74 years-old Male with fall. Acute neck injury status post fall COMPARISON: Head CT of same day, CT cervical spine June 28, 2022 TECHNIQUE: Multiple axial CT images of the cervical spine were obtained without contrast. A dose low ering technique was utilized adhering to the principles of ALARA. FINDINGS: Multilevel degenerative changes of the cervical spine include moderate disc space narrowing at C5-C6. There is a moderate-sized posterior disc osteophyte complex at C4-C5. Multilevel facet art hrosis is predominantly moderate. Suboptimal dilation of the central canal and neural foramen by CT t echnique. The cervical soft tissues appear unremarkable. The visualized lung apices appear clear. IMPRESSION: No acute cervical spine fracture or subluxation identified. ACT 112: Negative or not required by law. The above report was generated using voice recognition software. It may contain grammatical, syntax o r spelling errors. Electronically signed by: Shan Reed M.D. 08/29/2024 4:12 PM
--- NOTE | 2024-08-29 16:38 | CT Scan Report ---
CT SCAN OF THE ABDOMEN AND PELVIS WITH IV CONTRAST CLINICAL HISTORY: Sepsis. Follow-up. COMPARISON STUDY: Abdominal CT dated 05/20/2023. TECHNIQUE: Following the IV administration of 119 cc of Optiray 320, CT scan of the abdomen and pelv is is performed from the lung bases to the proximal femora. Images are reviewed in the axial, sagitta l, and coronal planes. IV contrast was administered without complication. A dose lowering technique w as utilized adhering to the principles of ALARA. The examination is degraded by streak artifact from the arms which could not be elevated above the abdomen. CT DOSE: 3512.73 mGy.cm FINDINGS: Lung bases: The heart is top normal in size and without pericardial effusion. The coronary arteries a re densely calcified. There is mild bibasilar scarring/atelectasis. No airspace consolidation or pleu ral effusion is identified. A 3 mm left basilar pulmonary nodule image #49 is unchanged. A small hiat al hernia is noted. Liver: The contrast-enhanced liver is normal in size, contour, and attenuation. There is no intrahepa tic biliary ductal dilatation. The hepatic veins and portal veins are patent. Gallbladder: Surgically absent. There is stones/debris within the distal common bile duct seen on axi al image #137. Spleen: The spleen is mildly enlarged measuring 14 cm in length. Pancreas: The pancreas is moderately atrophic. A multiloculated cystic collection along the anterior aspect of the pancreas measures approximately 7 x 3 cm as seen on axial image #129. This is increasin gly organized/cystic from the 05/20/2023 examination and likely represents a pseudocyst. An additional 2 cm pseudocyst is seen adjacent to pancreatic head on image #166. Trace pseudocyst is also seen abo ve the celiac trunk on image #119. Adrenal glands: Unremarkable. Kidneys: The contrast enhanced kidneys are normal in size and without hydronephrosis. The kidneys enh ance symmetrically. A 4.1 cm cyst arises from the left lower pole. Additional subcentimeter cortical hypodensities also likely represent cysts but are too small for definitive characterization. Abdominal vasculature: There is advanced atherosclerotic calcification and ectasia of the abdominal a juan diego. A thrombosed saccular aneurysm of the midabdominal aorta measuring up to 3.0 cm is unchanged. T here is aneurysm dilatation of the left common iliac artery which measures up to 2.7 cm. Bowel: There is mild to moderate colonic diverticulosis without CT evidence of acute diverticulitis. No bowel obstruction is seen. Mild fecal retention is noted throughout the colon. The appendix is we ll-visualized and normal. Peritoneum: There is no intraperitoneal free air or abdominal ascites. Lymphadenopathy: None. Pelvic viscera: The prostate gland is enlarged and heterogeneous. The bladder wall appears thickened/ trabeculated indicating chronic outlet obstruction. A urachal remnant is seen at the bladder dome. Th ere is a large fat-containing left inguinal hernia, as well as evidence of prior right inguinal herni orrhaphy. Skeletal structures: The skeletal structures are osteopenic there the lumbosacral spine, bony pelvis, and proximal femora appear intact. There is mild to moderate lumbosacral spondylosis. Changes also s een in the sacroiliac joints. No lytic or blastic lesions are seen. There are chronic/healed right-si ded rib fractures. IMPRESSION: 1. No acute infectious or inflammatory findings are identified in the abdomen or pelvis. 2. There is no evidence of solid organ injury in the abdomen or pelvis. 3. There are peripancreatic fluid collections as above which are increasingly organized/cystic as com pared to the 05/20/2023 examination. These likely represent pseudocysts. Nonemergent GI follow-up is a dvised. 4. There is evidence of choledocholithiasis, with stones/debris seen within the distal common bile du ct. This can also be assessed by GI. 5. Colonic diverticulosis without CT evidence of acute diverticulitis. 6. 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 7. Mild splenomegaly. 8. Additional findings as above. ACT 112: Negative or not required by law. Electronically signed by: Stephen Devlin M.D. 08/29/2024 4:36 PM
--- NOTE | 2024-08-29 16:43 | Electrocardiogram Report ---
Test Reason : Blood Pressure : */* mmHG Vent. Rate : 101 BPM Atrial Rate : 101 BPM P-R Int : 210 ms QRS Dur : 112 ms QT Int : 352 ms P-R-T Axes : 47 -67 93 degrees QTcB Int : 456 ms Sinus tachycardia with 1st degree A-V block Left anterior fascicular block Minimal voltage criteria for LVH, may be normal variant Abnormal ECG When compared with ECG of 09-Jul-2023 23:58, Vent. rate has increased by 44 bpm T wave inversion no longer evident in Inferior leads T wave inversion now evident in Lateral leads Confirmed by Manuel Ledbetter ([id number]) on 08/29/2024 4:43:01 PM Referred By: REFERRED SELF Confirmed By: Manuel Ledbetter
[2024-08-29] MEDS: SODIUM CHLORIDE 0.9% 500 ML IV ONE (16:54)
--- NOTE | 2024-08-29 17:45 | History & Physical Report ---
Date of Service August 29, 2024 Assessment & Plan (1) Unwitnessed fall: Plan: No history surrounding fall. Monitor on telemetry. Will need PT/OT once more stable. Notably has chronic gait instability and prior admission in June 2023 with dizziness after not eating and drinking well CK within normal limits Humeral fracture as result of the fall ?infection with elevated procalcitonin and choledocholithiasis, will cover with IV Zosyn pending blood cultures although no definitive infection found on admission and lack of abdominal pain suggests he does not have true cholangitis, UA not infective appearing and CT chest without consolidative process (2) Choledocholithiasis: Plan: Discussed with GI on admission by ER and recommended trending LFTs rather than transfer for ERCP Given lack of abdominal pain, normal lipase, no definitive infection and no gallbladder this may resolve spontaneously therefore will admit overnight but if LFTs getting worse despite IV fluids, NPO and antibiotics will need transfer for ERCP Hold clopidogrel and Lovenox prior to AM labs in case needs transferred for ERCP (3) Abnormal LFTs: Plan: Suspected secondary to choledocholithiasis Trend with AM labs Hold simvastatin (4) Closed right humeral fracture: Plan: Splint placed in ER. Consult orthopedics (5) Type 2 diabetes mellitus: Plan: HbA1c 7.6 in March 2023, repeat with a.m. labs Suspect uncontrolled diabetes with significant hyperglycemia and glucosuria not on SGLT-2 inhibitor Hold metformin Insulin 3 units IV now Insulin naive and NPO therefore will start Lantus 5 units BID Novolog: --Goal BSG Range: Low 110 mg/dL, High 140 mg/dL --Correction Factor: 45 mg/dL/unit --Carbohydrate ratio = 15 g/unit --BSGs ACHS if eating, q6h if npo Consult pharmacy for ongoing glycemic control (6) Acute hyperglycemia: Plan Hypothyroidism - TSH with a.m. labs, continue levothyroxine BPH - continue tamsulosin Depression and anxiety - continue fluoxetine VTE prophylaxis - Lovenox 40 mg subcu daily Diet - NPO Disposition - admit to PCU Admission and Anticipated Discharge Date Admission Date: August 29, 2024 History of Present Illness Chief Complaint: Unwitnessed fall Primary Care Provider: Juanita Morgan MD Payam Hill is a 74-year-old male who presents to the ER after being found on the floor by his daughter this morning around noon as the patient lives alone. The patient is unable to give any history about fall and does not remember any events yesterday appearing generally confused. Another daughter who did not find his today reports his last known well was 8pm last night. He was found on the bathroom floor. He has chronic problems with gait instability but had been his normal self yesterday. The patient reports pain all over but especially his right arm. However on direct questioning he denies any chest, abdominal, hip or back pain. No headache, neck stiffness, fever, chills, respiratory, gastrointestinal, or urinary symptoms. In the ER he was noted to have choledocholithiasis on imaging which was discussed with assistant professor nurse education vice president of contracts and recommended trending LFTs rather than transfer at this time per ER provider. He has a notable history fo severe gallstone pancreatitis requiring ICU admission in March 2023. He underwent an ERCP during that admission and subsequently underwent laparoscopic cholecystectomy as an outpatient in April 2023 with complication of gallbladder fossa infection and seroma. Allergies Allergy/AdvReac Type Severity Reaction Status Date / Time No Known Allergies Allergy Verified 08/29/24 18:25 Home Medications Medication Instructions Recorded Confirmed Type clopidogrel 75 mg tablet 75 mg PO QAM 08/17/20 08/29/24 History metformin 500 mg tablet 1,000 mg PO BID 08/17/20 08/29/24 History aspirin 81 mg tablet,delayed 81 mg PO DAILY 03/31/23 08/29/24 History release levothyroxine 88 mcg tablet 88 mcg PO QAM 03/31/23 08/29/24 History (Synthroid) magnesium oxide 400 mg PO BID 03/31/23 08/29/24 History simvastatin 40 mg tablet 40 mg PO DAILY 03/31/23 08/29/24 History tamsulosin 0.4 mg capsule 0.4 mg PO DAILY 03/31/23 08/29/24 History blood sugar diagnostic (OneTouch #25 ea 04/14/23 07/09/23 Rx Verio test strips) calcitriol 0.25 mcg capsule 0.25 mcg PO QAM #30 caps 04/14/23 08/29/24 Rx fluoxetine 40 mg capsule 40 mg PO HS 05/12/23 08/29/24 History multivit with 1 tab PO DAILY 05/12/23 08/29/24 History [id number] 18 mg iron-800 mcg-150 mg tablet (Vitamin D3 Complete) nitroglycerin 0.3 mg sublingual 0.3 mg sublingual UD PRN Chest Pain 05/20/23 08/29/24 History tablet polyethylene glycol 3350 17 gram 0 g PO DAILY PRN constipation 05/20/23 08/29/24 History oral powder packet (Miralax) pantoprazole 40 mg tablet,delayed 40 mg PO QAM #90 tabs 06/08/23 08/29/24 Rx release Past Med/Surg History Problem List (Updated 08/30/24 @ 01:17 by Casey Bazan MD) Choledocholithiasis Unwitnessed fall Acute hyperglycemia (Acute) Hypoxia (Acute) Closed right humeral fracture (Acute) Abnormal LFTs (Acute) Fall (Acute) Hypomagnesemia (Acute) Dizziness (Acute) Gait instability (Acute) Status post umbilical hernia repair, follow-up exam Status post laparoscopic cholecystectomy Abscess, intra-abdominal, postoperative (Acute) Acute pancreatitis (Acute) Elevated troponin (Acute) Acute postoperative abdominal pain (Acute) Groin strain (Acute) Popliteal artery aneurysm (Acute) Borderline high cholesterol Malignant melanoma (Acute) Surgical wound, non healing (Acute) Esophageal dysphagia Type 2 diabetes mellitus History of CVA (cerebrovascular accident) Hypocalcemia Depression Vitamin D deficiency Splenic infarct Swelling of right upper extremity Gallstone pancreatitis Umbilical hernia Hypothyroidism HTN (hypertension) Medical History Dizziness Diabetes mellitus, type 2 Depression Hx of melanoma of skin Choledocholithiasis Acute pancreatitis Hospitalized 03/2023 > acute kidney/liver failure Borderline hyperlipidemia Poor historian phone interview done by pts daughter History of COVID-19 11/16- congestion > resolved 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 Hood Enlarged prostate Diabetes TIA (transient ischemic attack) x2, Most recent 8+ years ago- residual problems with taking longer to process info Surgical History H/O umbilical hernia repair (05/16/23) p Laparoscopic Cholecystectomy(Not Applicable) - Deepak Pickering DO s and Open Umbilical Hernia Repair(Not Applicable) - Deepak A. Raheel, DO Hx laparoscopic cholecystectomy (05/16/23) p Laparoscopic Cholecystectomy(Not Applicable) - Deepak Pickering DO s and Open Umbilical Hernia Repair(Not Applicable) - Deepak Pickering DO Family history of reaction to anesthesia daughter > post-op nausea History of esophagogastroduodenoscopy (EGD) History of ERCP + stent (plans for removal after lap [place]) S/P colonoscopy S/P hernia repair inguinal Social History Smoking Status: Never smoker Tobacco Type: Cigarettes Cigarettes Per Day: quit smoking 40+ years; Second Hand Exposure: No; Do You Dip or Chew Tobacco: No; Hx Alcohol Use: No Hx Substance Use: No Preferred Language: Welsh Communication Ability: Effective Visual Impairment: No Limitations Hearing Ability: Normal Process Tank Tender Required: No Beliefs That Will Affect Care: None marital status: Current Living Situation: Alone Current Living Situation Comment: dtr goes to drs appointments - he lives by himself current occupational status: retired Other Information That Helps Us Care for You: No Feels Safe at Home: No Is there a partner from a previous relationship who is making you feel unsafe now?: No Any Concerns about Your Family Situation: No Would You Like to Speak to Someone About Your Situation: No Safety Concerns: Feels Safe At This Time Assistive Devices: Glasses Review of Systems Review of Systems: All systems reviewed & are unremarkable except as noted in HPI & below Physical Exam Constitutional: well developed; + not well nourished and no acute distress Eyes: PERRL, conjunctivae normal, anicteric sclerae ENMT: Mouth: + dry oral mucous membranes Neck: trachea midline, no thyromegaly Respiratory: normal respiratory effort, lungs clear to auscultation Cardiovascular: Rate/Rhythm: regular rhythm and + tachycardic Heart Sounds: + murmur Extremities: normal capillary refill and + pedal edema (1+ b/l equal L > R chronically); no calf tenderness Gastrointestinal (Abdomen): normal bowel sounds, soft, nontender, no hepatosplenomegaly Musculoskeletal: no cyanosis or clubbing, extremities motor strength 5/5 Skin: no rashes, warm and dry (no areas of cellultis noted) Neurologic: awake and + confused; + does not move all extremities (right arm in sling and too painful to move but good right machinist mate strength) Speech / Cognition: normal speech Motor/Sensory: no tremor and no pronator drift (left, unable to examine right side) Cranial Nerves: PERRL, EOM intact bilaterally, normal facial strength, tongue midline, able to rotate head bilaterally, able to elevate shoulders bilaterally, no nystagmus and symmetric palate elevation Psychiatric: Orientation: alert, oriented to person and oriented to place; + not oriented to time Genitourinary: no CVA tenderness Results & Data Results & Data Vital Signs (Past 12 Hours) Vital Signs Temp Pulse Pulse Resp BP BP Pulse Ox 08/29/24 17:00 71 22 141/87 H 95 08/29/24 16:30 73 24 140/85 100 08/29/24 16:00 73 26 H 136/86 100 08/29/24 15:43 75 26 H 149/86 H 100 08/29/24 15:24 32 H 94 08/29/24 15:00 100 H 34 H 120/92 86 L 08/29/24 14:03 36.6 C 100 H 42 H 142/102 H 85 L 08/29/24 13:56 99 H O2 Del Method O2 Flow Rate 08/29/24 17:00 Room Air 08/29/24 16:30 Non-rebreather 08/29/24 16:00 Non-rebreather 15 08/29/24 15:43 Non-rebreather 08/29/24 15:24 Non-rebreather 08/29/24 15:00 Oxymask 8 08/29/24 14:03 Room Air 08/29/24 13:56 Laboratory Results Abnormal lab results 08/29/24 08/29/24 08/29/24 Range/Units 14:02 14:27 14:43 RDW Std Deviation 51.8 H (36.4-46.3) fL RDW Coeff of Dinorah 15.9 H (11.5-14.5) % Neut # (Auto) 6.67 H (1.40-6.50) K/uL Lymph # (Auto) 0.36 L (1.20-3.40) K/uL VBG pH 7.46 H (7.36-7.41) VBG pCO2 20 L (38-50) mmHg Carbon Dioxide 18 L (21-32) mmol/L Anion Gap 19 H (3-11) Glucose 400 H* (70-99(Fasting)) mg/dl Lactate 4.6 H* (0.4-2.0) mmol/L Total Bilirubin 2.5 H (0.2-1.0) mg/dl Direct Bilirubin 0.6 H (0-0.2) mg/dl AST 209 H (13-39) U/L ALT 396 H (7-52) U/L Alkaline Phosphatase 160 H (34-104) U/L Lipase 8 L (11-82) U/L Procalcitonin 1.41 H (0-0.5) ng/ml Ur Specific [place] 1.045 H (1.000-1.030) Urine Protein Trace H (Negative) Urine Glucose (UA) 3+ H (Negative) Urine Ketones 2+ H (Negative) 08/29/24 Range/Units 17:07 RDW Std Deviation (36.4-46.3) fL RDW Coeff of Dinorah (11.5-14.5) % Neut # (Auto) (1.40-6.50) K/uL Lymph # (Auto) (1.20-3.40) K/uL VBG pH (7.36-7.41) VBG pCO2 (38-50) mmHg Carbon Dioxide (21-32) mmol/L Anion Gap (3-11) Glucose (70-99(Fasting)) mg/dl Lactate 2.6 H* (0.4-2.0) mmol/L Total Bilirubin (0.2-1.0) mg/dl Direct Bilirubin (0-0.2) mg/dl AST (13-39) U/L ALT (7-52) U/L Alkaline Phosphatase (34-104) U/L Lipase (11-82) U/L Procalcitonin (0-0.5) ng/ml Ur Specific [place] (1.000-1.030) Urine Protein (Negative) Urine Glucose (UA) (Negative) Urine Ketones (Negative) Diagnostic Findings CT SCAN OF THE BRAIN WITHOUT IV CONTRAST CLINICAL HISTORY: Change in mental status. COMPARISON STUDY: CT of the brain dated 07/09/2023. TECHNIQUE: Unenhanced axial CT scan of the brain is performed from the vertex to the skull base. A dose lowering technique was utilized adhering to the principles of ALARA. FINDINGS: Brain parenchyma: There is age-related involutional change noting mild subcortical and periventricular microangiopathic disease. There is no hemorrhage, mass effect, or evidence of acute territorial ischemia by CT criteria. 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 There is also a chronic lacunar infarct in the left thalamus. Garcia-white matter differentiation is preserved. No extra-axial fluid collection is seen. Ventricles, sulci, cisterns: Prominent secondary to involutional change. Intracranial vasculature: There is atherosclerotic calcification of the cavernous carotid and vertebral artery. Calvarium: Unremarkable. Sinuses and mastoids: The visualized paranasal sinuses are clear. The mastoid air cells are well pneumatized. Orbits: The bony orbits are grossly intact. IMPRESSION: There is no hemorrhage, mass effect, or evidence of acute territorial ischemia by CT criteria. CT ANGIOGRAPHY OF THE CHEST, PULMONARY EMBOLUS PROTOCOL CLINICAL HISTORY: Fall. Sepsis. COMPARISON STUDY: Chest radiograph performed earlier today. Chest CT May 03, 2023. TECHNIQUE: Following IV administration of 119 mL of Optiray, helical axial images of the chest were obtained utilizing the pulmonary embolus protocol. Maximal intensity projections and sagittal and coronal reformats were viewed on an independent 3D workstation. IV contrast was administered without complication. Automated exposure control was utilized for the study. A dose lowering technique was utilized adhering to the principles of ALARA. FINDINGS: No pulmonary emboli are identified. The heart is mildly enlarged. Extensive coronary artery calcification is again noted. There is no pericardial effusion. Dilatation of the ascending aorta measuring 4.1 cm is similar to prior exam. There is no pneumothorax or pleural effusion. Lungs are suboptimally assessed due to respiratory motion. There is no consolidation to suggest pneumonia. There is no pneumothorax or pleural effusion. No acute rib or thoracic spine fractures are noted. There is an acute displaced proximal diaphyseal right humeral fracture. Moderate surrounding hemorrhage is present. This contains tiny hypodensities likely reflecting bone fragments. IMPRESSION: 1. No pulmonary emboli identified. 2. No consolidation to suggest pneumonia. Lungs suboptimally assessed due to respiratory motion. 3. Acute displaced fracture of the proximal diaphysis of the right humerus with moderate surrounding hemorrhage. CT SCAN OF THE ABDOMEN AND PELVIS WITH IV CONTRAST CLINICAL HISTORY: Sepsis. Follow-up. COMPARISON STUDY: Abdominal CT dated 05/20/2023. TECHNIQUE: Following the IV administration of 119 cc of Optiray 320, CT scan of the abdomen and pelvis is performed from the lung bases to the proximal femora. Images are reviewed in the axial, sagittal, and coronal planes. IV contrast was administered without complication. A dose lowering technique was utilized adhering to the principles of ALARA. The examination is degraded by streak artifact from the arms which could not be elevated above the abdomen. CT DOSE: 3512.73 mGy.cm FINDINGS: Lung bases: The heart is top normal in size and without pericardial effusion. The coronary arteries are densely calcified. There is mild bibasilar scarring/atelectasis. No airspace consolidation or pleural effusion is identified. A 3 mm left basilar pulmonary nodule image #49 is unchanged. A small hiatal hernia is noted. Liver: The contrast-enhanced liver is normal in size, contour, and attenuation. There is no intrahepatic biliary ductal dilatation. The hepatic veins and portal veins are patent. Gallbladder: Surgically absent. There is stones/debris within the distal common bile duct seen on axial image #137. Spleen: The spleen is mildly enlarged measuring 14 cm in length. Pancreas: The pancreas is moderately atrophic. A multiloculated cystic collection along the anterior aspect of the pancreas measures approximately 7 x 3 cm as seen on axial image #129. This is increasingly organized/cystic from the 05/20/2023 examination and likely represents a pseudocyst. An additional 2 cm pseudocyst is seen adjacent to pancreatic head on image #166. Trace pseudocyst is also seen above the celiac trunk on image #119. Adrenal glands: Unremarkable. Kidneys: The contrast enhanced kidneys are normal in size and without hydronephrosis. The kidneys enhance symmetrically. A 4.1 cm cyst arises from the left lower pole. Additional subcentimeter cortical hypodensities also likely represent cysts but are too small for definitive characterization. Abdominal vasculature: There is advanced atherosclerotic calcification and ectasia of the abdominal aorta. A thrombosed saccular aneurysm of the midabdominal aorta measuring up to 3.0 cm is unchanged. There is aneurysm dilatation of the left common iliac artery which measures up to 2.7 cm. Bowel: There is mild to moderate colonic diverticulosis without CT evidence of acute diverticulitis. No bowel obstruction is seen. Mild fecal retention is noted throughout the colon. The appendix is well-visualized and normal. Peritoneum: There is no intraperitoneal free air or abdominal ascites. Lymphadenopathy: None. Pelvic viscera: The prostate gland is enlarged and heterogeneous. The bladder wall appears thickened/trabeculated indicating chronic outlet obstruction. A urachal remnant is seen at the bladder dome. There is a large fat-containing left inguinal hernia, as well as evidence of prior right inguinal herniorrhaphy. Skeletal structures: The skeletal structures are osteopenic there the lumbosacral spine, bony pelvis, and proximal femora appear intact. There is mild to moderate lumbosacral spondylosis. Changes also seen in the sacroiliac joints. No lytic or blastic lesions are seen. There are chronic/healed right-sided rib fractures. IMPRESSION: 1. No acute infectious or inflammatory findings are identified in the abdomen or pelvis. 2. There is no evidence of solid organ injury in the abdomen or pelvis. 3. There are peripancreatic fluid collections as above which are increasingly organized/cystic as compared to the 05/20/2023 examination. These likely represent pseudocysts. Nonemergent GI follow-up is advised. 4. There is evidence of choledocholithiasis, with stones/debris seen within the distal common bile duct. This can also be assessed by GI. 5. Colonic diverticulosis without CT evidence of acute diverticulitis. 6. 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 7. Mild splenomegaly. 8. Additional findings as above. XR chest 1V portable CLINICAL HISTORY: Sepsis. COMPARISON STUDY: Chest CT May 23, 2023. Chest radiograph July 09, 2023. FINDINGS: Lung volumes are normal. Lungs are clear. There is no pneumothorax or pleural effusion. Cardiac size is normal. Mediastinal contours are normal. There is no evidence for pulmonary edema. There are left axillary surgical clips. IMPRESSION: No acute cardiopulmonary findings. Addendum: Incidental note is made of an acute displaced transverse fracture of the proximal diaphysis of the right humerus. XR shoulder RT min 2V routine HISTORY: 74 years-old Male fall acute right shoulder pain status post fall COMPARISON: Chest radiograph 07/09/2023 TECHNIQUE: 2 views of the right shoulder FINDINGS: There is no acute proximal metadiaphyseal right humeral fracture deformity which demonstrates 12 mm medial displacement with apex medial angulation and volar displacement of approximately 2 cm. No dislocation. Moderate osteoarthritis with mild soft tissue swelling. IMPRESSION: Acute angulated and displaced proximal metadiaphyseal humeral fracture. No dislocation. Medications Administered ER medications given: Normal saline 1 L bolus Zosyn 4.5 g IV Normal saline 1 L bolus Normal saline 500 mL bolus ECG Rate (beats per minute): 101 Rhythm: sinus tachycardia Findings: + 1st degree AV block Comparison ECG Date: from (July 09, 2023) Change: the following changes noted (T wave inversion no longer evident in inferior leads, now evident in lateral leads) Code Status & VTE Plan Code Status DNR/DNI VTE Prophylaxis Plan VTE Prophylaxis will be ordered: Yes PG Care Time/CCT Total # of Minutes Spent Total Time Spent with Patient: Total time spent is greater than 50% in coordination of care (as documented) at patient's floor/unit and/or counseling patient: Coding Level of Care Code 35474 INT INP/OBS CARE 3/75MIN Diagnoses Unwitnessed fall R29.6 Choledocholithiasis K80.50 Abnormal LFTs R79.89 Closed right humeral fracture S42.201A Encounter type: initial encounter Fracture morphology: unspecified fracture morphology Humerus Location: proximal Type 2 diabetes mellitus E11.9 Acute hyperglycemia R73.9 (4) Closed right humeral fracture Encounter type: initial encounter Fracture morphology: unspecified fracture morphology Humerus Location: proximal Qualified Code(s): S42.201A - Unspecified fracture of upper end of right humerus, initial encounter for closed fracture
[2024-08-29] MEDS: NovoLIN-R INSULIN PER UNIT CHARGE IV STA ×2 (18:22→18:42)
[2024-08-29] MEDS: PANTOprazole 40 MG in SYRINGE 0 ML IV ONE (18:42)
[2024-08-29] MEDS: HYDROmorphone INJ 0.5 MG/0.5 ML SYR IV STA (18:42)
[2024-08-29 21:04] VITALS: RESP 18
[2024-08-29] MEDS ORDERED: DEXTROSE 50% 50 ML SYRINGE IV PRN (21:39)
[2024-08-29] MEDS ORDERED: GLUCOSE 10 TAB/TUBE PO PRN (21:39)
[2024-08-29] MEDS ORDERED: HYDROmorphone INJ 0.5 MG/0.5 ML SYR IV PRN (21:39)
[2024-08-29] MEDS ORDERED: GLUCAGON FOR INJ 1 MG VIAL SQ PRN (21:39)
[2024-08-29] MEDS ORDERED: GLUCOSE 40% GEL 15 GM TUBE PO PRN (21:39)
[2024-08-29] MEDS ORDERED: CARBOHYDRATES FOR HYPOGLYCEMIA PO PRN (21:39)
[2024-08-29] MEDS: INSULIN ASPART PER UNIT CHARGE SC SCH (21:54)
[2024-08-29] MEDS: LANTUS PER UNIT CHARGE SQ SCH (21:54)
[2024-08-29] MEDS: LACTATED RINGER'S 1,000 ML IV SCH (21:57)
[2024-08-29] MEDS: HYDROmorphone INJ 0.5 MG/0.5 ML SYR IV PRN (22:43)
[2024-08-30] MEDS ORDERED: PHARMACY GLYCEMIC MGMT CONSULT PRN (01:23)
[2024-08-30] MEDS: PIPERACILLIN/TAZOBACTAM 4.5 GM/100 ML BAG IV STA (02:14)
[2024-08-30] MEDS: INSULIN ASPART PER UNIT CHARGE SC SCH ×2 (02:18→06:21)
--- OUTSIDE RECORDS SUMMARY | 2024-08-30 03:52 | External Medical Summary | Continuity of Care Document ---
Author Name Unknown Organization [facility] Address [address] [facility] [address] [place], [place] [id number] Care Team Providers Care Inspection Manager Name Role Phone Juanita Morgan Jim Primary Care Physician [phone] Rashmi Pool Unavailable Unavailable Lana Lock Unavailable Unavailable En[facility] [id number] Date(s): 05/16/24 - 05/16/24 [facility] [address] [facility] [address] [place], [place] [id number] Discharge Disposition: Home or Self Care Attending Physician: MD Berkowitz Cassandra Referring Physician: MD Berkowitz Cassandra Allergies, Adverse Reactions, Alerts No Known Allergies Immunizations Given and Recorded Vaccine Date Status Refusal Reason pneumococcal 20-valent conjugate vaccine 05/01/23 Given influenza virus vaccine, inactivated 09/12/22 Give n Medications aspirin 81 mg oral delayed release tablet Start: 12/06/22 11:13:00 AM EST, 1 tab, PO, Daily Start Date: 12/06/22 Status: Ordered calcitriol 0.25 mcg oral capsule Start: 10/05/23 10:59:00 AM EST, 1 cap, PO, Daily, Disp# 90 cap, Refills: 3, Pharmacy: [facility] Start Date: 10/05/23 Status: Ordered clopidogrel 75 mg oral tablet Start: 08/03/23 7:58:00 AM EDT, See Instructions, Disp# 90 tab, Refills: 3, TAKE 1 TABLET DAILY, Pharmacy: [facility] Start Date: 08/03/23 Status: Ordered FLUoxetine 40 mg oral capsule Start: 11/16/23 8:18:00 AM EST, 1 cap, PO, Daily, Disp# 90 cap, Refills: 3, Pharmacy: [facility] Start Date: 11/16/23 Status: Ordered levothyroxine 88 mcg (0.088 mg) oral tablet Start: 11/06/23 12:08:00 PM EST, 1 tab, PO, Daily, Disp# 90 tab, Refills: 3, Pharmacy: [facility] Start Date: 11/06/23 Status: Ordered magnesium oxide 400 mg (241.3 mg elemental magnesium) oral tablet Start: 12/09/22 3:06:00 PM EST, 1 tab, PO, bid, Disp# 180 tab, Refills: 3, [facility] Start Date: 12/09/22 Status: Ordered metFORMIN 500 mg oral tablet Start: 03/04/24 9:14:00 AM EDT, 2 tab, PO, bid, Disp# 360 tab, Refills: 3, Pharmacy: [facility] Start Date: 03/04/24 Status: Ordered One Touch Delica Plus (30G) Lancets Start: 04/19/23 8:52:00 PM EDT, See Instructions, Disp# 100 each, Refills: 3, test BID, Dx : E11.9, Pharmacy: [facility] Start Date: 04/19/23 Status: Ordered One Touch Verio Test Strips Start: 04/19/23 8:50:00 PM EDT, See Instructions, Disp# 100 each, Refills: 3, test BID, Dx E11.9, Pharmacy: [facility] Start Date: 04/19/23 Status: Ordered pantoprazole 40 mg oral delayed release tablet Start: 07/13/22 2:21:00 PM EDT, 1 tab, PO, Daily Start Date: 07/13/22 Status: Ordered simvastatin 40 mg oral tablet Start: 04/29/24 9:28:00 AM EDT, 1 tab, PO, qhs, Disp# 90 tab, Refills: 3, Pharmacy: [facility] Start Date: 04/29/24 Status: Ordered tamsulosin 0.4 mg oral capsule Start: 05/06/24 8:48:00 PM EDT, 1 cap, PO, Daily, Disp# 90 cap, Refills: 1, Pharmacy: [facility] Start Date: 05/06/24 Status: Ordered Mental Status 05/16/24 Barriers to Learning one year None evide nt Mandatory Health Literacy Documentation Yes Health Literacy Communication Barriers N ever Primary Language Hungarian Problem List Condition Confirmation Course Effective Dates Status H ealth Status Informant AAA (abdominal aortic aneurysm) Confirmed Active Acute pancreatitis Confirmed Active Ascending aortic aneurysm Confirmed Active 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 Peripheral artery aneurysm Confirmed Active 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 Cachexia Confirmed Active Dysphagia Confirmed Active Personal history of malignant melanoma Confirmed Active H/O dehydration Confirmed Active History of CVA (cerebrovascular accident) Confirmed Active S/P laparoscopic cholecystectomy Confirmed Active Hyperlipidemia Confirmed Active Hyperlipidemia Confirmed Active Hypomagnesemia Confirmed Active Hypomagnesemia Confirmed Active Lives alone Confirmed Active Melanoma Confirmed Active Annual physical exam Confirmed Active Advanced directives, counseling/discussion Confirmed Active Major depressive disorder, recurrent, in full remission Confirmed Active Episode of syncope Confirmed Active Tobacco user Confirmed Active Type 2 diabetes, HbA1C goal < 8% Confirmed Active Hernia, umbilical Confirmed Active Procedures Procedure Date Related Diagnosis Body Site Status Cholecystectomy 1 05/16/23 Complet ed Repair of umbilical hernia 2 05/16/23 Completed ERCP 3 03/31/23 Completed Excision 03/27/23 Completed Shave biopsy of skin 02/20/23 Comp leted Upper GI (gastrointestinal) endoscopy 4, 5 07/05/22 Completed Shave biopsy and cauterizati on of skin 6 06/23/22 Completed Shave biopsy of skin 03/11/21 Comp leted Shave biopsy 12/10/20 Completed Excision 7 05/20/20 Completed endovascular repair of right popliteal artery aneurysm 06/29/18 Completed Computed tomography (CT) of abdomen and pelvis with contrast 8 Completed Computed tomography (CT) of head and neck [address] cervical spine without contrast 10 Completed Hemorrhoidectomy Complete d Repair of inguinal hernia Right Completed [address] [place] [address] [facility] 3Choledocholithiasis was found. Complete removal was accomplished by biliary sphincteroptomy and balloon extraction. One plastic biliary stent was placed into the common bile duct. [facility] Impression: 1. No endoscopic esophageal abnormality to explain dysphagia. Esophagus dilated 2. Small hiatal hernia 3. Gastritis. Biopsied 4. Normal examined duodenum 5Pathology: Stomach, antrum biopsy: MIld chronic antritis is seen. Atrophy and intestinal metaplasiaare not seen. An immunohistochemical stain for the Helicobactor pylori organisms is negative. The clinical history of dysphagia is noted. 6central back 7excision of melanom mid back 8CT A&P 07/29/22: FINDINGS: Lower chest: Cardiomegaly is noted. Liver: Unremarkable. No focal lesions are seen. Gallbladder and biliary tree: No calcified gallstones. Normal caliber wall. No intra- or extrahepatic biliary ductal dilation. Pancreas: Unremarkable, no focal lesions. Spleen: Unremarkable. Adrenals: Unremarkable. Kidneys and ureters: Perinephric stranding is noted bilaterally. There is a left inferior pole renal cyst. Bladder: Limited evaluation due to underdistention. The bladder wall is thickened. Reproductive organs: Prostatomegaly is seen. Bowel: Diverticulosis is seen without evidence of diverticulitis. The appendix is normal. A hiatal hernia is seen. Lymph nodes Retroperitoneal: Subcentimeter lymph nodes are noted. Pelvic: Unremarkable. Mesenteric: Unremarkable. Peritoneum: Normal. Vessels: Multiple aneurysms are seen. A anterior orientation infrarenal aortic aneurysm measures 38mm in diameter, unchanged from prior exam. There is an aneurysm near the aortic bifurcation measuring 29 mm, also unchanged. There is aneurysmal enlargement of the proximal left common iliac artery measuring 25 mm in diameter, also unchanged. Abdominal wall: Left fat containing inguinal hernia. There is postsurgical change of a right inguinal hernia repair. Fat-containing umbilical hernia is seen. Bones: Degenerative changes in the visualized spine. IMPRESSION: 1. No acute abnormalities are seen. 2. Stable aortic and iliac aneurysms are seen. 3. Additional findings as above. 9CT Head w/o 07/29/22: Findings: Areas of decreased attenuation are present in the periventricular and subcortical white matter bilaterally consistent with small vessel ischemic disease. Generalized cerebral atrophy with commensurate enlargement of the ventricles, sulci, and cisterns is also present. There is no acute intracranial hemorrhage or evidence of acute territorial infarction. No shift of the midline structures, mass effect, or extra-axial abnormalities are shown. Atherosclerotic calcifications are present in the intracranial segments of the internal carotid arteries. Imaged portions of the paranasal sinuses and mastoid air cells are clear. The orbits appear normal.There are no acute fractures of the calvaria or scalp swelling. Impression: No acute intracranial hemorrhage, skull fractures, or scalp swelling. 10CT C-spine 07/29/22: FINDINGS: No acute fractures or subluxations are identified. Degenerative changes are seen in the visualized spine. The alignment is normal. Soft tissues are unremarkable. IMPRESSION: Degenerative changes without evidence of acute bony injury. Social History Social History Type Response Tobacco Former smoker, Smoke less tobacco use: Smokeless tobacco user within last 30 days. Cigarettes 1 Smoking Status Never smoked cigaret martha Sex Male 1Chews 1 can of snuff q3 days for ~50+ years Patient Care team information Care Team Personnel Name: MD Eddie, Juanita Fernandez Position: Physician - Family Med Member Role: Primary Care Provider Address: Address: [address] [place] [address] Name: SULEMA Smith Lynn Position: Physician Sprinkler Fitter Helper Exempt - Vasc Surg Member Role: Lifetime Relationship Address: Address: [address] [place] [address] Care Team Related Persons Name: GERMÁN BERGMAN Address: home [address] [facility] [place] [phone] Name: QASIM ZAPATA Address: home [address] [place] [id number]
[2024-08-30 04:26] LABS: A calco-baum cmplx NotReported Not Detected (NotDetected); Bact fragilis Not Reported Not Detected (NotDetected); Blood Culture Id Panel See PCR Comment (NotDetected); C auris Not Reported Not Detected (NotDetected); CTX-M Resistant Gene Not Detected (NotDetected); Calbicans Not Reported Not Detected (NotDetected); Candida glabrata Not Reported Not Detected (NotDetected); Candida krusei Not Reported Not Detected (NotDetected); Cneoformans/gatti Not Reported Not Detected (NotDetected); Cparapsilosis Not Reported Not Detected (NotDetected); E cloacae compx Not Reported Not Detected (NotDetected); Efaecalis Not Reported Not Detected (NotDetected); Efaecium Not Reported Not Detected (NotDetected); Enterobacterales Not Reported DETECTED (NotDetected); Escherichia coli Not Reported DETECTED (NotDetected); H influenzae Not Reported Not Detected (NotDetected); IMP Resistant Gene Not Detected (NotDetected); K aerogenes Not Reported Not Detected (NotDetected); KPC Resistant Gene Not Detected (NotDetected); Koxytoca Not Reported Not Detected (NotDetected); Kpneumoniae grp Not Reported Not Detected (NotDetected); Lmonocyt Not Reported Not Detected (NotDetected); N meningitidis Not Reported Not Detected (NotDetected); NDM Resistant Gene Not Detected (NotDetected); OXA 48 Like Resistant Gene Not Detected (NotDetected); P aeruginosa Not Reported Not Detected (NotDetected); Proteus spp Not Reported Not Detected (NotDetected); Salmonella spp Not Reported Not Detected (NotDetected); Staph lugdunensis Not Reported Not Detected (NotDetected); Staph spp. Not Reported Not Detected (NotDetected); Staphaureus Not Reported Not Detected (NotDetected); Staphepi Not Reported Not Detected (NotDetected); Stenmaltophilia Not Reported Not Detected (NotDetected); Strep agal(GrpB) Not Reported Not Detected (NotDetected); Strep pneum Not Reported Not Detected (NotDetected); Strep pyog (GrpA) Not Reported Not Detected (NotDetected); Strep spp Not Reported Not Detected (NotDetected); VIM Resistant Gene Not Detected (NotDetected); mcr-1 Colistin Resistant Gene Not Detected (NotDetected)
[2024-08-30 04:31] LABS: Enterobacterales DETECTED (NotDetected)
[2024-08-30] MEDS: LEVOTHYROXINE SODIUM 88 MCG TABLET PO SCH (06:21)
[2024-08-30 07:25] LABS: Albumin Level 3.6 gm/dl (3.4-5.0); Bilirubin,Total 1.6 mg/dl (0.2-1.0); Calcium 8.2 mg/dl (8.6-10.3); Magnesium 1.8 mg/dl (1.7-2.4); Potassium 4.4 mmol/L (3.5-5.1)
[2024-08-30 07:37] LABS: Basophils # (auto) 0.01 K/uL (0.00-0.20); Basophils % (auto) 0.2 %; Eosinophils # (auto) 0.01 K/uL (0.00-0.50); Eosinophils % (auto) 0.2 %; Hematocrit (blood only) 36.6 % (42.0-52.0); Hemoglobin 11.9 g/dl (14.0-18.0); Immature Granulocytes # (auto) 0.03 K/uL (0.01-0.20); Immature Granulocytes % (auto) 0.5 %; Lymphocytes # (auto) 0.88 K/uL (1.20-3.40); Lymphocytes % (auto) 15.4 %; Mean Corpuscular Hemoglobin 29.5 pg (25.0-34.0); Mean Corpuscular Hgb Conc 32.5 g/dL (32.0-36.0); Mean Corpuscular Volume 90.8 fL (80.0-100.0); Mean Platelet Volume 10.6 fL (9.4-12.4); Monocytes # (auto) 0.78 K/uL (0.11-0.59); Monocytes % (auto) 13.6 %; Neutrophils # (auto) 4.01 K/uL (1.40-6.50); Neutrophils % (auto) 70.1 %; Platelet Count 138 K/uL (130-400); RDW Coefficient of Variation 16.1 % (11.5-14.5); RDW Standard Deviation 54.4 fL (36.4-46.3); Red Blood Count 4.03 M/uL (4.70-6.10); White Blood Count 5.72 K/ul (4.8-10.8)
[2024-08-30 07:38] LABS: Albumin Globulin Ratio 1.4 (0.9-2); BUN Creatinine Ratio 24.1 (10-20); Globulin 2.5 gm/dl (2.5-4.0); Phosphorus 2.5 mg/dl (2.5-4.9); Total Protein 6.1 gm/dl (6.0-8.3)
[2024-08-30 07:49] LABS: Thyroid Stimulating Hormone 1.213 uIu/ml (0.300-4.500)
[2024-08-30] MEDS: PIPERACILLIN/TAZOBACTAM 4.5 GM/100 ML BAG IV SCH (08:19)
[2024-08-30] MEDS: TAMSULOSIN HCL 0.4 MG CAP PO SCH (08:21)
[2024-08-30] MEDS: ASPIRIN 81 MG ECTAB PO SCH (08:21)
[2024-08-30] MEDS: MAGNESIUM OXIDE 400 MG TAB PO SCH (08:21)
[2024-08-30] MEDS: PANTOprazole 40 MG TAB PO SCH (08:21)
[2024-08-30 08:22] LABS: Estimated Average Glucose 206 mg/dl; Hemoglobin A1C 8.8 % (4.5-5.6)
[2024-08-30] MEDS: LANTUS PER UNIT CHARGE SQ SCH (08:26)
[2024-08-30] MEDS ORDERED: CLOPIDOGREL BISULFATE 75 MG TAB PO SCH (09:00)
--- NOTE | 2024-08-30 09:31 | Pharmacy Report ---
Pharmacy Glycemic Short Note 2 - Date of Service August 30, 2024 - Glycemic Short BSG Results (Last 24 hours): 08/29/24 08/29/24 08/29/24 14:02 18:11 21:47 Glucose 400 H* POC Glucose 276 H 299 H 08/30/24 08/30/24 08/30/24 02:08 06:12 06:35 Glucose 201 H POC Glucose 218 H 183 H OUTPATIENT ANTIDIABETIC REGIMEN: * metformin 1 g PO BIDM HbA1c: 8.8% (08/30/24) ASSESSMENT: * NL is a 74 year old male who presented to ED following an unwitnessed fall * Found to have humeral fracture w/ concern for choledocholithiasis and now E.coli bacteremia * Patient with uncontrolled T2DM w/ elevated blood sugar on presentation * Patient is currently NPO pending GI and orthopedic surgery consultations * Plan is now for hospital transfer for ERCP PLAN FOR INPATIENT GLYCEMIC CONTROL: * Hold outpatient oral diabetes medications * Basal insulin * Lantus 8 units SQ BID * Bolus insulin * NovoLog per scale ACHS or Q6hrs while NPO * Goal Range: Low 110 mg/dL - High 140 mg/dL * Correction Factor: 30 mg/dL/unit * Nutritional / Prandial insulin per carb ratio of 1 unit per 10 grams CHO consumed
--- NOTE | 2024-08-30 10:00 | Gastrointestinal Consultation ---
Date of Consultation August 30, 2024 Assessment & Plan (1) Choledocholithiasis: 74 year old male with history of HTN, DM, hypothyroidism, prior CVA, gallstone pancreatitis, ileus S/P ERCP w choledocholithiasis removal, biliary sphincterectomy, CBD stent placement in 2022 admitted following fall at home, Closed right humeral fracture He has CBD stones/debris within the CBD, although his LFTs downtrended overnight, blood culture this AM gram negative bacilli. NPO Hold AC Recommend transfer for ERCP coverage. ABX with biliary coverage. Trend LFTs. His persistent pancreatic fluid collections should also be evaluated by an advanced endoscopist as recent CT imaging is concerning for a 7 x 3 cm pseu docyst as this may require endoscopic evacuation vs other management. Thank you for allowing us to participate in the care of this patient. Please call with any acute changes, questions or concerns. Please see addendum below with additional recommendation from my supervising physician. I spent a total of 60 minutes on the date of service in review of patient's record, and previously obtained information in person and appropriate medical visit, discussion and education of plan, with patient and/or caregiver, placing orders for tests/referral/procedures as medically necessary and documentation of pertinent clinical information in patient's medical records for their visit today. Supervising Physician Co-Signing Physician Notes I reviewed patient's chart , laboratory data and imaging studies. I agree with with assessment and plan of care as suggested by advanced practice provider. Likely cholangitis, E. coli sepsis. The patient was transferred to another institution for ERCP before I could see him. History of Present Illness Reason for Consultation: Choledocholithiasis, elevated LFTs Requesting Physician: Betty Jang MD Attending Physician: Betty Jang MD History of Present Illness 74 year old male with history of HTN, DM, hypothyroidism, prior CVA, gallstone pancreatitis, ileus S/P ERCP w choledocholithiasis removal, biliary sphincterectomy, CBD stent placement in 2022 admitted following fall at home, closed right humeral fracture - GI asked to evaluate for elevated LFTs and CBD stone. Pt was seen and evaluated, chart reviewed. Notes from a GI standpoint he is feeling well. Denies abd pain. No nausea, vomiting. Endorses good appetite prior to arrival. No GERD or dysphagia. Bowels moving well - tends towards looser stools. No black or bloody stools. Blood cultures 08/30/24: gram negative bacilli WBC 5 TB 2.5 --> 1.6 AST 209 --> 62 ALT 396 --> 215 ALKP 160 --> 97 CTAP 2023: There are peripancreatic fluid collections as above which are increasingly organized/cystic as compared to the 05/20/2023 examination. These likely represent pseudocysts. Nonemergent GI follow-up is advised. There is evidence of choledocholithiasis, with stones/debris seen within the distal common bile duct. This can also be assessed by GI. Allergies Allergy/AdvReac Type Severity Reaction Status Date / Time No Known Allergies Allergy Verified 08/29/24 18:25 Home Medications Medication Instructions Recorded Confirmed Type clopidogrel 75 mg tablet 75 mg PO QAM 08/17/20 08/29/24 History metformin 500 mg tablet 1,000 mg PO BID 08/17/20 08/29/24 History aspirin 81 mg tablet,delayed 81 mg PO DAILY 03/31/23 08/29/24 History release levothyroxine 88 mcg tablet 88 mcg PO QAM 03/31/23 08/29/24 History (Synthroid) magnesium oxide 400 mg PO BID 03/31/23 08/29/24 History simvastatin 40 mg tablet 40 mg PO DAILY 03/31/23 08/29/24 History tamsulosin 0.4 mg capsule 0.4 mg PO DAILY 03/31/23 08/29/24 History blood sugar diagnostic (OneTouch #25 ea 04/14/23 07/09/23 Rx Verio test strips) calcitriol 0.25 mcg capsule 0.25 mcg PO QAM #30 caps 04/14/23 08/29/24 Rx fluoxetine 40 mg capsule 40 mg PO HS 05/12/23 08/29/24 History multivit with 1 tab PO DAILY 05/12/23 08/29/24 History [id number] 18 mg iron-800 mcg-150 mg tablet (Vitamin D3 Complete) nitroglycerin 0.3 mg sublingual 0.3 mg sublingual UD PRN Chest Pain 05/20/23 08/29/24 History tablet polyethylene glycol 3350 17 gram 0 g PO DAILY PRN constipation 05/20/23 08/29/24 History oral powder packet (Miralax) pantoprazole 40 mg tablet,delayed 40 mg PO QAM #90 tabs 06/08/23 08/29/24 Rx release Patient History Medical History Dizziness Diabetes mellitus, type 2 Depression Hx of melanoma of skin Acute pancreatitis Hospitalized 03/2023 > acute kidney/liver failure Borderline hyperlipidemia Poor historian phone interview done by pts daughter History of COVID-19 11/16- congestion > resolved 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 Hood Enlarged prostate Diabetes TIA (transient ischemic attack) x2, Most recent 8+ years ago- residual problems with taking longer to process info Surgical History H/O umbilical hernia repair (05/16/23) p Laparoscopic Cholecystectomy(Not Applicable) - Deepak Pickering DO s and Open Umbilical Hernia Repair(Not Applicable) - Deepak Pickering DO Hx laparoscopic cholecystectomy (05/16/23) p Laparoscopic Cholecystectomy(Not Applicable) - Deepak Pickering DO s and Open Umbilical Hernia Repair(Not Applicable) - Deepak Pickering DO Family history of reaction to anesthesia daughter > post-op nausea History of esophagogastroduodenoscopy (EGD) History of ERCP + stent (plans for removal after lap [place]) S/P colonoscopy S/P hernia repair inguinal Social History Smoking Status: Never smoker Tobacco Type: Cigarettes Cigarettes Per Day: quit smoking 40+ years; Second Hand Exposure: No; Do You Dip or Chew Tobacco: No; Hx Alcohol Use: No Hx Substance Use: No Preferred Language: Romansh Communication Ability: Effective Visual Impairment: No Limitations Hearing Ability: Normal Activities Volunteer Required: No Beliefs That Will Affect Care: None marital status: Current Living Situation: Alone Current Living Situation Comment: dtr goes to drs appointments - he lives by himself current occupational status: retired Feels Safe at Home: No Is there a partner from a previous relationship who is making you feel unsafe now?: No Assistive Devices: None Review of Systems Review of Systems: All other findings negative except as noted in HPI. Physical Exam Constitutional: WD/WN, vitals as above Respiratory: normal respiratory effort, lungs clear to auscultation Cardiovascular: Rate/Rhythm: regular rate and regular rhythm Gastrointestinal (Abdomen): normal bowel sounds, soft, nontender, no hepatosplenomegaly Skin: no rashes, warm and dry Results & Data Vital Signs (Past 12 Hours) Vital Signs Temp Pulse Pulse Resp BP BP Pulse Ox 08/30/24 07:25 61 08/30/24 07:05 37 C 63 18 148/85 H 96 08/30/24 02:50 36.5 C 64 18 144/86 H 96 08/29/24 23:17 36.6 C 69 18 124/72 93 O2 Del Method 08/30/24 07:25 08/30/24 07:05 Room Air 08/30/24 02:50 Room Air 08/29/24 23:17 Room Air Laboratory Results 08/30/24 08/30/24 08/30/24 Range/Units 06:35 06:12 02:08 WBC 5.72 (4.8-10.8) K/ul RBC 4.03 L (4.70-6.10) M/uL Hgb 11.9 L D (14.0-18.0) g/dl Hct 36.6 L (42.0-52.0) % MCV 90.8 (80.0-100.0) fL MCH 29.5 (25.0-34.0) pg MCHC 32.5 (32.0-36.0) g/dL RDW Std Deviation 54.4 H (36.4-46.3) fL RDW Coeff of Dinorah 16.1 H (11.5-14.5) % Plt Count 138 (130-400) K/uL MPV 10.6 (9.4-12.4) fL Immature Gran % (Auto) 0.5 % Neut % (Auto) 70.1 % Lymph % (Auto) 15.4 % [place] % (Auto) 13.6 % Eos % (Auto) 0.2 % Baso % (Auto) 0.2 % Neut # (Auto) 4.01 (1.40-6.50) K/uL Lymph # (Auto) 0.88 L (1.20-3.40) K/uL [place] # (Auto) 0.78 H (0.11-0.59) K/uL Eos # (Auto) 0.01 (0.00-0.50) K/uL Baso # (Auto) 0.01 (0.00-0.20) K/uL Immature Gran # (Auto) 0.03 (0.01-0.20) K/uL PT (9.0-12.0) Seconds INR (0.9-1.1) APTT (21-31) Seconds PTT Ratio VBG pH (7.36-7.41) VBG pCO2 (38-50) mmHg VBG pO2 mmHg VBG HCO3 mmol/L VBG O2 Saturation % VBG Base Excess mEq/L Sodium 139 (136-145) mmol/L Potassium 4.4 (3.5-5.1) mmol/L Chloride 109 H (98-107) mmol/L Carbon Dioxide 22 (21-32) mmol/L Anion Gap 8 (3-11) BUN 19 (6-23) mg/dl Creatinine 0.79 (0.6-1.4) mg/dl Est Cr Clr Drug Dosing 90.0 ml/min eGFR 93.22 BUN/Creatinine Ratio 24.1 H (10-20) Glucose 201 H (70-99(Fasting)) mg/dl POC Glucose 183 H 218 H (70-99) mg/dl Estimat Average Glucose 206 mg/dl Hemoglobin A1c 8.8 H (4.5-5.6) % Lactate (0.4-2.0) mmol/L Calcium 8.2 L (8.6-10.3) mg/dl Phosphorus 2.5 (2.5-4.9) mg/dl Magnesium 1.8 (1.7-2.4) mg/dl Total Bilirubin 1.6 H (0.2-1.0) mg/dl Direct Bilirubin (0-0.2) mg/dl AST 62 H (13-39) U/L ALT 215 H (7-52) U/L Alkaline Phosphatase 97 (34-104) U/L Total Creatine Kinase (30-223) U/L Troponin I High Sens (0-20) pg/ml Total Protein 6.1 D (6.0-8.3) gm/dl Albumin 3.6 (3.4-5.0) gm/dl Globulin 2.5 (2.5-4.0) gm/dl Albumin/Globulin Ratio 1.4 (0.9-2) Lipase (11-82) U/L Procalcitonin (0-0.5) ng/ml TSH 1.213 (0.300-4.500) uIu/ml Urine Color Urine Appearance (Clear) Urine pH (4.5-7.5) Ur Specific Railroad (1.000-1.030) Urine Protein (Negative) Urine Glucose (UA) (Negative) Urine Ketones (Negative) Urine Blood (Negative) Urine Nitrite (Negative) Urine Bilirubin (Negative) Urine Urobilinogen (Negative) Ur Leukocyte Esterase (Negative) Urine WBC (Auto) (0-5) /hpf Urine RBC (Auto) (0-2) /hpf U Hyaline Cast (Auto) (0-2) /lpf U Epithel Cells (Auto) (0-2) /hpf Urine Bacteria (Auto) (None Seen) SARS-CoV-2 (PCR) (Negative) Enterobacterales (PCR) (NotDetected) E. coli (PCR) (NotDetected) Influenza Type A (PCR) (Neg) Influenza Type B (PCR) (Neg) RSV (RT-PCR) (Neg) mcr-1 Colistin Res Gene PCR (NotDetected) blaIMP Car res Gene PCR (NotDetected) KPC-Carbap Res Gene PCR (NotDetected) blaNDM Car Res Gene PCR (NotDetected) OXA-48 Carbapenem Resis Gene (PCR) (NotDetected) blaVIM Car Res Gene PCR (NotDetected) CTX-M Gene Resistance (PCR) (NotDetected) Bld Cult ID Panel PCR (NotDetected) 08/29/24 08/29/24 08/29/24 Range/Units 21:47 18:11 17:07 WBC (4.8-10.8) K/ul RBC (4.70-6.10) M/uL Hgb (14.0-18.0) g/dl Hct (42.0-52.0) % MCV (80.0-100.0) fL MCH (25.0-34.0) pg MCHC (32.0-36.0) g/dL RDW Std Deviation (36.4-46.3) fL RDW Coeff of Dinorah (11.5-14.5) % Plt Count (130-400) K/uL MPV (9.4-12.4) fL Immature Gran % (Auto) % Neut % (Auto) % Lymph % (Auto) % [place] % (Auto) % Eos % (Auto) % Baso % (Auto) % Neut # (Auto) (1.40-6.50) K/uL Lymph # (Auto) (1.20-3.40) K/uL [place] # (Auto) (0.11-0.59) K/uL Eos # (Auto) (0.00-0.50) K/uL Baso # (Auto) (0.00-0.20) K/uL Immature Gran # (Auto) (0.01-0.20) K/uL PT (9.0-12.0) Seconds INR (0.9-1.1) APTT (21-31) Seconds PTT Ratio VBG pH (7.36-7.41) VBG pCO2 (38-50) mmHg VBG pO2 mmHg VBG HCO3 mmol/L VBG O2 Saturation % VBG Base Excess mEq/L Sodium (136-145) mmol/L Potassium (3.5-5.1) mmol/L Chloride (98-107) mmol/L Carbon Dioxide (21-32) mmol/L Anion Gap (3-11) BUN (6-23) mg/dl Creatinine (0.6-1.4) mg/dl Est Cr Clr Drug Dosing ml/min eGFR BUN/Creatinine Ratio (10-20) Glucose (70-99(Fasting)) mg/dl POC Glucose 299 H 276 H (70-99) mg/dl Estimat Average Glucose mg/dl Hemoglobin A1c (4.5-5.6) % Lactate 2.6 H* (0.4-2.0) mmol/L Calcium (8.6-10.3) mg/dl Phosphorus (2.5-4.9) mg/dl Magnesium (1.7-2.4) mg/dl Total Bilirubin (0.2-1.0) mg/dl Direct Bilirubin (0-0.2) mg/dl AST (13-39) U/L ALT (7-52) U/L Alkaline Phosphatase (34-104) U/L Total Creatine Kinase (30-223) U/L Troponin I High Sens (0-20) pg/ml Total Protein (6.0-8.3) gm/dl Albumin (3.4-5.0) gm/dl Globulin (2.5-4.0) gm/dl Albumin/Globulin Ratio (0.9-2) Lipase (11-82) U/L Procalcitonin (0-0.5) ng/ml TSH (0.300-4.500) uIu/ml Urine Color Urine Appearance (Clear) Urine pH (4.5-7.5) Ur Specific [place] (1.000-1.030) Urine Protein (Negative) Urine Glucose (UA) (Negative) Urine Ketones (Negative) Urine Blood (Negative) Urine Nitrite (Negative) Urine Bilirubin (Negative) Urine Urobilinogen (Negative) Ur Leukocyte Esterase (Negative) Urine WBC (Auto) (0-5) /hpf Urine RBC (Auto) (0-2) /hpf U Hyaline Cast (Auto) (0-2) /lpf U Epithel Cells (Auto) (0-2) /hpf Urine Bacteria (Auto) (None Seen) SARS-CoV-2 (PCR) (Negative) Enterobacterales (PCR) (NotDetected) E. coli (PCR) (NotDetected) Influenza Type A (PCR) (Neg) Influenza Type B (PCR) (Neg) RSV (RT-PCR) (Neg) mcr-1 Colistin Res Gene PCR (NotDetected) blaIMP Car res Gene PCR (NotDetected) KPC-Carbap Res Gene PCR (NotDetected) blaNDM Car Res Gene PCR (NotDetected) OXA-48 Carbapenem Resis Gene (PCR) (NotDetected) blaVIM Car Res Gene PCR (NotDetected) CTX-M Gene Resistance (PCR) (NotDetected) Bld Cult ID Panel PCR (NotDetected) 08/29/24 08/29/24 08/29/24 Range/Units 14:43 14:27 14:02 WBC 7.60 (4.8-10.8) K/ul RBC 5.12 (4.70-6.10) M/uL Hgb 15.7 (14.0-18.0) g/dl Hct 45.3 (42.0-52.0) % MCV 88.5 (80.0-100.0) fL MCH 30.7 (25.0-34.0) pg MCHC 34.7 (32.0-36.0) g/dL RDW Std Deviation 51.8 H (36.4-46.3) fL RDW Coeff of Dinorah 15.9 H (11.5-14.5) % Plt Count 180 (130-400) K/uL MPV 10.8 (9.4-12.4) fL Immature Gran % (Auto) 0.4 % Neut % (Auto) 87.8 % Lymph % (Auto) 4.7 % [place] % (Auto) 7.0 % Eos % (Auto) 0.0 % Baso % (Auto) 0.1 % Neut # (Auto) 6.67 H (1.40-6.50) K/uL Lymph # (Auto) 0.36 L (1.20-3.40) K/uL [place] # (Auto) 0.53 (0.11-0.59) K/uL Eos # (Auto) 0.00 (0.00-0.50) K/uL Baso # (Auto) 0.01 (0.00-0.20) K/uL Immature Gran # (Auto) 0.03 (0.01-0.20) K/uL PT 11.4 (9.0-12.0) Seconds INR 1.1 (0.9-1.1) APTT 28 (21-31) Seconds PTT Ratio 1.0 VBG pH 7.46 H (7.36-7.41) VBG pCO2 20 L (38-50) mmHg VBG pO2 37 mmHg VBG HCO3 14 mmol/L VBG O2 Saturation 67.5 % VBG Base Excess -7.3 mEq/L Sodium 137 (136-145) mmol/L Potassium 4.6 (3.5-5.1) mmol/L Chloride 100 (98-107) mmol/L Carbon Dioxide 18 L (21-32) mmol/L Anion Gap 19 H (3-11) BUN 17 (6-23) mg/dl Creatinine 1.05 (0.6-1.4) mg/dl Est Cr Clr Drug Dosing 67.7 ml/min eGFR 74.49 BUN/Creatinine Ratio 16.2 (10-20) Glucose 400 H* (70-99(Fasting)) mg/dl POC Glucose (70-99) mg/dl Estimat Average Glucose mg/dl Hemoglobin A1c (4.5-5.6) % Lactate 4.6 H* (0.4-2.0) mmol/L Calcium 9.4 (8.6-10.3) mg/dl Phosphorus (2.5-4.9) mg/dl Magnesium 1.7 (1.7-2.4) mg/dl Total Bilirubin 2.5 H (0.2-1.0) mg/dl Direct Bilirubin 0.6 H (0-0.2) mg/dl AST 209 H (13-39) U/L ALT 396 H (7-52) U/L Alkaline Phosphatase 160 H (34-104) U/L Total Creatine Kinase 139 (30-223) U/L Troponin I High Sens 19.4 (0-20) pg/ml Total Protein 7.9 (6.0-8.3) gm/dl Albumin 4.6 (3.4-5.0) gm/dl Globulin (2.5-4.0) gm/dl Albumin/Globulin Ratio (0.9-2) Lipase 8 L (11-82) U/L Procalcitonin 1.41 H (0-0.5) ng/ml TSH (0.300-4.500) uIu/ml Urine Color [place] Urine Appearance Clear (Clear) Urine pH 5.0 (4.5-7.5) Ur Specific [place] 1.045 H (1.000-1.030) Urine Protein Trace H (Negative) Urine Glucose (UA) 3+ H (Negative) Urine Ketones 2+ H (Negative) Urine Blood Negative (Negative) Urine Nitrite Negative (Negative) Urine Bilirubin Negative (Negative) Urine Urobilinogen Negative (Negative) Ur Leukocyte Esterase Negative (Negative) Urine WBC (Auto) 0-5 (0-5) /hpf Urine RBC (Auto) 0-2 (0-2) /hpf U Hyaline Cast (Auto) 0-2 (0-2) /lpf U Epithel Cells (Auto) 0-2 (0-2) /hpf Urine Bacteria (Auto) None Seen (None Seen) SARS-CoV-2 (PCR) NEGATIVE (Negative) Enterobacterales (PCR) DETECTED A (NotDetected) E. coli (PCR) DETECTED A (NotDetected) Influenza Type A (PCR) Negative (Neg) Influenza Type B (PCR) Negative (Neg) RSV (RT-PCR) Negative (Neg) mcr-1 Colistin Res Gene PCR Not Detected (NotDetected) blaIMP Car res Gene PCR Not Detected (NotDetected) KPC-Carbap Res Gene PCR Not Detected (NotDetected) blaNDM Car Res Gene PCR Not Detected (NotDetected) OXA-48 Carbapenem Resis Gene (PCR) Not Detected (NotDetected) blaVIM Car Res Gene PCR Not Detected (NotDetected) CTX-M Gene Resistance (PCR) Not Detected (NotDetected) Bld Cult ID Panel PCR See PCR Comment (NotDetected) PG Care Time/CCT Total # of Minutes Spent Total Time Spent with Patient: Total time spent is greater than 50% in coordination of care (as documented) at patient's floor/unit and/or counseling patient: Coding Level of Care Code 45990 INT INP/OBS CARE 2MIN Diagnoses Choledocholithiasis K80.50
--- NOTE | 2024-08-30 13:12 | Discharge Summary ---
Discharge Summary Date of Service August 30, 2024 Principal Dx & Hospital Course #1 = Principal Diagnosis (1) Acute cholangitis: 74 y/o with history of gallstone pancreatitis underwent ERCP with CBD stent spring 2022 and subsequent cholecystectomy. Presented with unwitnessed fall. CT abdomen with common bile duct stones and debris. Bilirubin mildly elevated at 2.6, AST/ALT/AP also elevated. Poor historian and denied abdominal pain but has RUQ guarding on exam. LFT improved overnight but found to have gram negative august bacteremia. E. coli by molecular assay without significant resistance. CT also notable for multiloculated anterior cystic pancreatic mass 7 x 3 cm consistent with pseudocyst. Increased and more organized/loculated since last scan 04/30/23. He also has 2 cm cyst pancreas head. lipase 8 and nontender over pancreas -discussed with hull and deck remover at [facility] recommended transfer for ERCP -may also benefit from EUS to evaluate pseudocysts, though do not seem infected -ASA/plavix held -continue IVF and antibiotics - had pip-tazo overnight which was changed to ceftriaxone/metronidazole based on molecular resistance panel -not available at [facility] or [place], discussed with GI and hospitalist at [facility] who graciously accepted for transfer (2) Unwitnessed fall: No history surrounding fall, likely weakness related to cholangitis. No arrhythmia on tele. Will need PT/OT once more stable. Notably has chronic gait instability and prior admission in June 2023 with dizziness after not eating and drinking well CK within normal limits Humeral fracture as result of the fall (3) Closed right humeral fracture: Splint placed in ER. Consulted orthopedics, has not been seen yet today however Prox humerus fractures often can be nonoperative NWB RUE, continue splint and sling until ortho evaluation (4) Type 2 diabetes mellitus: HbA1c 7.6 in March 2023, repeat pending Suspect uncontrolled diabetes with significant hyperglycemia and glucosuria not on SGLT-2 inhibitor Hold metformin Insulin naive and NPO therefore started Lantus 5 units BID Novolog: --Goal BSG Range: Low 110 mg/dL, High 140 mg/dL --Correction Factor: 45 mg/dL/unit --Carbohydrate ratio = 15 g/unit --BSGs ACHS if eating, q6h if npo (5) Acute hyperglycemia: improved AM BG 180 (6) Bacteremia: E. coli see above Plan Hypothyroidism - TSH 1.2, continue levothyroxine BPH - continue tamsulosin Depression and anxiety - continue fluoxetine His daughter reports he has poor short term memory ever since previous stroke, but he still lives independently alone VTE prophylaxis - SCD I updated his daughter by phone this morning Admission HPI Per Admitting Provider Payam Hill is a 74-year-old male who presents to the ER after being found on the floor by his daughter this morning around noon as the patient lives alone. The patient is unable to give any history about fall and does not remember any events yesterday appearing generally confused. Another daughter who did not find his today reports his last known well was 8pm last night. He was found on the bathroom floor. He has chronic problems with gait instability but had been his normal self yesterday. The patient reports pain all over but especially his right arm. However on direct questioning he denies any chest, abdominal, hip or back pain. No headache, neck stiffness, fever, chills, respiratory, gastrointestinal, or urinary symptoms. In the ER he was noted to have choledocholithiasis on imaging which was discussed with hull and deck remover investor relations director and recommended trending LFTs rather than transfer at this time per ER provider. He has a notable history fo severe gallstone pancreatitis requiring ICU admission in March 2023. He underwent an ERCP during that admission and subsequently underwent laparoscopic cholecystectomy as an outpatient in April 2023 with complication of gallbladder fossa infection and seroma. Discharge Exam awake and alert, no distress RUE in splint and sling, fingers wwp Heart reg no mrg, no JVD Lungs CTAB no rrw Abd nondistended, guarding over RUQ, nontender in epigastric area, +BT LE wwp without cyanosis or edema Skin w/d no rashes neuro - AOx self, hospital, basic situation, cassy, face symm, moves all extremities spontaneously Discharge Plan Discharge Items Patient Disposition: Transfer Acute Care Hospital Reason For Visit: CHOLEDOCHOLITHIASIS, UNWITNESSED FALL Discharge Diagnosis: cholangitis, choledocholithiasis, gram negative bacteremia, right humerus fracture Activity: Per Instructions section Non-emergency contact: Primary Care Provider Call non-emergency contact if: you have any medication questions and your symptoms worsen Follow-up/Referrals: Juanita Morgan MD [Primary Care Provider] - Diet: Nothing by Mouth Addtl Attending Provider Instructions: nonweightbearing RUE, continue splint/sling ortho consult was called at [facility] but not completed prior to transfer Pending Studies at Discharge: Yes (blood cultures) Stand-Alone Forms: My [facility] Skilled Items Patient informed of condition?: Yes DNR: Yes Discharge Level of Care: Other Communicable Disease: No Discharge Prognosis: Stable Lines: Peripheral IV Urinary Catheter: No Medications and DC Order Prescriptions: No Action clopidogrel 75 mg tablet 75 mg PO QAM Hold Instructions: Resume on 05/19/23. Patient Comments: has holding instructions metformin 500 mg tablet 1,000 mg PO BID Rx Instructions: per daughter she isn't sure if its a full 1000mg daily pantoprazole 40 mg tablet,delayed release (DR/EC) 40 mg PO QAM Qty: 90 3RF aspirin 81 mg Tablet,Delayed Release (Dr/Ec) 81 mg PO DAILY simvastatin 40 mg tablet 40 mg PO DAILY levothyroxine [Synthroid] 88 mcg tablet 88 mcg PO QAM tamsulosin 0.4 mg capsule 0.4 mg PO DAILY magnesium oxide 400 mg magnesium Tablet 400 mg PO BID calcitriol 0.25 mcg Capsule 0.25 mcg PO QAM Qty: 30 0RF (DME) OneTouch Verio test strips Strip See Rx Instructions .Route Qty: 25 2RF Rx Instructions: to test blood glucose once per day nitroglycerin 0.3 mg tablet, sublingual 0.3 mg sublingual UD PRN (Reason: Chest Pain) polyethylene glycol 3350 [Miralax] 17 gram powder in packet 0 g PO DAILY PRN (Reason: constipation) Rx Instructions: OTC Per daughter surgeons said to hold off on giving him any doses. fluoxetine 40 mg capsule 40 mg PO HS Vitamin D3 Complete 18 mg iron-800 mcg-150 mg Tablet 1 tab PO DAILY Patient Comments: + vitamin c Discharge Orders: Discharge Order (Routine); Ordered 08/30/24 Ordered By: Betty Jang Admission Data Admit Date/Time: 08/29/24 18:02 Attending Provider: Betty Jang Admit Provider: Casey Bazan Primary Care Provider: Juanita Morgan Other Providers: Casey Bazan; Wilfredo Montero; Fausto Pantoja Hospital Stay Data Consultations 08/29/24 17:34 ED Decision to Admit Stat 08/29/24 17:38 Consult Gastroenterology Stat 08/29/24 18:54 Consult Orthopedic Surgery Routine Diagnostic Imagining Performed 08/29/24 14:19 CT cervical spine wo con Stat CT head/brain wo con Stat 08/29/24 15:16 CT abd pelvis IV con only Stat CT angio chest PE protocol Stat Discharge Instructions Given to Patient (Per Discharging Provider) nonweightbearing RUE, continue splint/sling ortho consult was called at [facility] but not completed prior to transfer Total Time Total Time Spent Total Time Spent (In Minutes): 65 minutes - reviewing chart notes, labs, studies, vitals, discussion with commercial solar sales consultant, discussion with accepting physicians for transfer, counseling family, examining patient, orders, documentation Coding Level of Care Code 97496 INP/OBS DISCH >30 MIN Diagnoses Acute cholangitis K83.09 Unwitnessed fall R29.6 Closed right humeral fracture S42.201A Encounter type: initial encounter Fracture morphology: unspecified fracture morphology Humerus Location: proximal Type 2 diabetes mellitus E11.9 Acute hyperglycemia R73.9 Bacteremia R78.81
--- NOTE | 2024-08-30 14:47 | Orthopedic Consultation ---
Date of Service August 30, 2024 Assessment & Plan (1) Closed right humeral fracture: We discussed diagnosis and treatment options. This may be treated conservatively if it continues to line up with treatment. Sometimes these fractures line better over time but sometimes they displace further. If it displaces any further I had probably have to recommend open reduction internal fixation of the proximal humerus. He is right-hand dominant and lives alone. Unfortunately, he is doing with other medical histories. He will be transferred to [facility] later today. He can follow-up with orthopedics in 1 week for repeat x-rays and to evaluate the fracture. History of Present Illness Reason for Consultation: Right proximal humerus fracture. Requesting Physician: . Attending Physician: Betty Jang MD Payam is a pleasant 74-year-old male who lives alone. He had an unwitnessed fall yesterday. His daughters found him. He came to the emergency room with complaint of right arm pain. X-rays showed a displaced right proximal humerus fracture. He was admitted to the medical service. Orthopedics was consulted to evaluate and treat.. Allergies Allergy/AdvReac Type Severity Reaction Status Date / Time No Known Allergies Allergy Verified 08/29/24 18:25 Home Medications Medication Instructions Recorded Confirmed Type clopidogrel 75 mg tablet 75 mg PO QAM 08/17/20 08/29/24 History metformin 500 mg tablet 1,000 mg PO BID 08/17/20 08/29/24 History aspirin 81 mg tablet,delayed 81 mg PO DAILY 03/31/23 08/29/24 History release levothyroxine 88 mcg tablet 88 mcg PO QAM 03/31/23 08/29/24 History (Synthroid) magnesium oxide 400 mg PO BID 03/31/23 08/29/24 History simvastatin 40 mg tablet 40 mg PO DAILY 03/31/23 08/29/24 History tamsulosin 0.4 mg capsule 0.4 mg PO DAILY 03/31/23 08/29/24 History blood sugar diagnostic (OneTouch #25 ea 04/14/23 07/09/23 Rx Verio test strips) calcitriol 0.25 mcg capsule 0.25 mcg PO QAM #30 caps 04/14/23 08/29/24 Rx fluoxetine 40 mg capsule 40 mg PO HS 05/12/23 08/29/24 History multivit with 1 tab PO DAILY 05/12/23 08/29/24 History [id number]-#190herbal 18 mg iron-800 mcg-150 mg tablet (Vitamin D3 Complete) nitroglycerin 0.3 mg sublingual 0.3 mg sublingual UD PRN Chest Pain 05/20/23 08/29/24 History tablet polyethylene glycol 3350 17 gram 0 g PO DAILY PRN constipation 05/20/23 08/29/24 History oral powder packet (Miralax) pantoprazole 40 mg tablet,delayed 40 mg PO QAM #90 tabs 06/08/23 08/29/24 Rx release Past Med/Surg History Problem List Bacteremia Acute cholangitis Choledocholithiasis Unwitnessed fall Acute hyperglycemia (Acute) Hypoxia (Acute) Closed right humeral fracture (Acute) Abnormal LFTs (Acute) Fall (Acute) Hypomagnesemia (Acute) Dizziness (Acute) Gait instability (Acute) Status post umbilical hernia repair, follow-up exam Status post laparoscopic cholecystectomy Abscess, intra-abdominal, postoperative (Acute) Acute pancreatitis (Acute) Elevated troponin (Acute) Acute postoperative abdominal pain (Acute) Groin strain (Acute) Popliteal artery aneurysm (Acute) Borderline high cholesterol Malignant melanoma (Acute) Surgical wound, non healing (Acute) Esophageal dysphagia Type 2 diabetes mellitus History of CVA (cerebrovascular accident) Hypocalcemia Depression Vitamin D deficiency Splenic infarct Swelling of right upper extremity Gallstone pancreatitis Umbilical hernia Hypothyroidism HTN (hypertension) Medical History Dizziness Diabetes mellitus, type 2 Depression Hx of melanoma of skin Acute pancreatitis Hospitalized 03/2023 > acute kidney/liver failure Borderline hyperlipidemia Poor historian phone interview done by pts daughter History of COVID-19 11/16- congestion > resolved 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 Hood Enlarged prostate Diabetes TIA (transient ischemic attack) x2, Most recent 8+ years ago- residual problems with taking longer to process info Surgical History H/O umbilical hernia repair (05/16/23) p Laparoscopic Cholecystectomy(Not Applicable) - Deepak Pickering DO s and Open Umbilical Hernia Repair(Not Applicable) - Deepak Pickering DO Hx laparoscopic cholecystectomy (05/16/23) p Laparoscopic Cholecystectomy(Not Applicable) - Deepak Pickering DO s and Open Umbilical Hernia Repair(Not Applicable) - Deepak Pickering DO Family history of reaction to anesthesia daughter > post-op nausea History of esophagogastroduodenoscopy (EGD) History of ERCP + stent (plans for removal after lap [place]) S/P colonoscopy S/P hernia repair inguinal Social History Smoking Status: Never smoker Tobacco Type: Cigarettes Cigarettes Per Day: quit smoking 40+ years; Second Hand Exposure: No; Do You Dip or Chew Tobacco: No; Hx Alcohol Use: No Hx Substance Use: No Preferred Language: Occitan Communication Ability: Effective Visual Impairment: No Limitations Hearing Ability: Normal Money Counter Required: No Beliefs That Will Affect Care: None marital status: Current Living Situation: Alone Current Living Situation Comment: dtr goes to drs appointments - he lives by himself current occupational status: retired Other Information That Helps Us Care for You: No Feels Safe at Home: No Is there a partner from a previous relationship who is making you feel unsafe now?: No Any Concerns about Your Family Situation: No Would You Like to Speak to Someone About Your Situation: No Safety Concerns: Feels Safe At This Time Assistive Devices: None Review of Systems All systems reviewed & are unremarkable except as noted in HPI & below. Physical Exam On physical examination of the right shoulder, he is wearing his sling as instructed. He has a coaptation splint in place. He does have some active motion of his fingers.. Constitutional WD/WN, vitals as above Eyes PERRL, conjunctivae normal, anicteric sclerae ENMT external ear and nose normal, oropharynx normal Neck trachea midline, no thyromegaly Respiratory normal respiratory effort Cardiovascular RRR, no murmur, no edema Gastrointestinal (Abdomen) normal bowel sounds, soft, nontender, no hepatosplenomegaly Psychiatric A+Ox3, euthymic affect Results & Data Results & Data Laboratory Results . Diagnostic Findings X-rays of the right shoulder show a displaced transverse fracture at the metadiaphyseal junction of the right proximal humerus.. PG Care Time/CCT Total # of Minutes Spent Total Time Spent with Patient: Total time spent is greater than 50% in coordination of care (as documented) at patient's floor/unit and/or counseling patient: Coding Level of Care Code 88622 IN/OBS CONSULT LVL 4,60M Diagnoses Closed right humeral fracture S42.201A Encounter type: initial encounter Fracture morphology: unspecified fracture morphology Humerus Location: proximal (1) Closed right humeral fracture Encounter type: initial encounter Fracture morphology: unspecified fracture morphology Humerus Location: proximal Qualified Code(s): S42.201A - Unspecified fracture of upper end of right humerus, initial encounter for closed fracture
[2024-08-30 15:25] VITALS: BP 123/73; PULSE 63; TEMP 98.4; O2SAT 94
[2024-08-30] MEDS ORDERED: cefTRIAXone SODIUM 2,000 MG/50 ML BAG IV SCH (16:00)
[2024-08-30] MEDS ORDERED: metroNIDAZOLE 500 MG/100 ML BAG IV SCH (17:00)
[2024-08-30] MEDS ORDERED: ENOXAPARIN INJ 40 MG/0.4 ML SYR SQ SCH (21:00)
[2024-08-30] MEDS ORDERED: FLUoxetine HCL 20 MG CAP PO SCH (21:00)
== END 2024-08-30 16:00 | disposition short-term general hospital (02) | DRG 563 ==
LOC: ED 13:50 → 2S 18:02 → SUATTDRO 18:02 → 2S 21:02
DX: E11.65 Type 2 diabetes mellitus with hyperglycemia; K80.30 Calculus of bile duct with cholangitis, unspecified, without obstruction; B96.20 Unspecified Escherichia coli [E. coli] as the cause of diseases classified elsewhere; Z90.49 Acquired absence of other specified parts of digestive tract; Z86.16 Personal history of COVID-19; S42.301A Unspecified fracture of shaft of humerus, right arm, initial encounter for closed fracture; Z79.890 Hormone replacement therapy; Z86.73 Personal history of transient ischemic attack (TIA), and cerebral infarction without residual deficits; Z87.891 Personal history of nicotine dependence; Z79.84 Long term (current) use of oral hypoglycemic drugs; R29.6 Repeated falls; I71.40 Abdominal aortic aneurysm, without rupture, unspecified; I10 Essential (primary) hypertension; E78.5 Hyperlipidemia, unspecified; F41.9 Anxiety disorder, unspecified; N40.0 Benign prostatic hyperplasia without lower urinary tract symptoms; Z79.82 Long term (current) use of aspirin; E03.9 Hypothyroidism, unspecified; Z79.02 Long term (current) use of antithrombotics/antiplatelets; W19.XXXA Unspecified fall, initial encounter; F32.A Depression, unspecified; Z79.899 Other long term (current) drug therapy; R78.81 Bacteremia

== ENCOUNTER 2024-09-12 11:26 | Observation (INO) ==
--- NOTE | 2024-09-12 11:17 | Anesthesiology Consultation ---
Date of Service September 12, 2024 Assessment & Plan Chart Review Chart Review: Acceptable Risk for Surgery and Patient NOT seen in Pre Admission Testing Consults Requested none History Surgery Operation Date: 09/12/24 13:00 Proposed Procedures p Open Reduction Internal Fixation Right Proximal Humerus Fracture - Fausto Pantoja DO Allergies Allergy/AdvReac Type Severity Reaction Status Date / Time No Known Allergies Allergy Verified 08/29/24 18:25 Medications Home Medications Medication Instructions Recorded Confirmed Last Taken clopidogrel 75 mg tablet 75 mg PO QAM 08/17/20 09/08/24 08/28/24 metformin 500 mg tablet 1,000 mg PO BID 08/17/20 09/08/24 08/28/24 aspirin 81 mg tablet,delayed 81 mg PO DAILY 03/31/23 09/08/24 08/28/24 release levothyroxine 88 mcg tablet 88 mcg PO QAM 03/31/23 09/08/24 08/28/24 (Synthroid) magnesium oxide 400 mg PO BID 03/31/23 09/08/24 08/28/24 simvastatin 40 mg tablet 40 mg PO DAILY 03/31/23 09/08/24 08/28/24 tamsulosin 0.4 mg capsule 0.4 mg PO DAILY 03/31/23 09/08/24 08/28/24 blood sugar diagnostic (OneTouch #25 ea 04/14/23 07/09/23 Unknown Verio test strips) calcitriol 0.25 mcg capsule 0.25 mcg PO QAM #30 caps 04/14/23 09/08/24 08/28/24 fluoxetine 40 mg capsule 40 mg PO HS 05/12/23 09/08/24 08/28/24 multivit with 1 tab PO DAILY 05/12/23 09/08/24 08/28/24 [id number]-#190herbal 18 mg iron-800 mcg-150 mg tablet (Vitamin D3 Complete) nitroglycerin 0.3 mg sublingual 0.3 mg sublingual UD PRN Chest Pain 05/20/23 09/08/24 Unknown tablet polyethylene glycol 3350 17 gram 0 g PO DAILY PRN constipation 05/20/23 09/08/24 05/18/23 oral powder packet (Miralax) pantoprazole 40 mg tablet,delayed 40 mg PO QAM #90 tabs 06/08/23 09/08/24 08/28/24 release hydrocodone 5 mg-acetaminophen 325 1 tab PO Q6H PRN pain #10 tabs 09/08/24 Unknown mg tablet tramadol 50 mg tablet 50 mg PO DIRECTED 09/08/24 09/08/24 Unknown Past Medical History Medical History Dizziness Diabetes mellitus, type 2 Depression Hx of melanoma of skin Acute pancreatitis Borderline hyperlipidemia Poor historian History of COVID-19 Aneurysm Enlarged prostate Diabetes TIA (transient ischemic attack) Past Surgical History Surgical History H/O umbilical hernia repair (05/16/23) Hx laparoscopic cholecystectomy (05/16/23) Family history of reaction to anesthesia History of esophagogastroduodenoscopy (EGD) History of ERCP S/P colonoscopy S/P hernia repair Social History Smoking Status: Never smoker tobacco type: smokeless tobacco Smoking cigarettes per day: quit smoking 40+ years Do You Dip or Chew Tobacco: No Hx Alcohol Use: No Alcohol type: beer alcohol intake frequency: holidays/special occasions only Hx Substance Use: No substance use type: does not use
--- NOTE | 2024-09-12 12:12 | History & Physical Bridge Note ---
Date of Service September 12, 2024 History & Physical Bridge Note I have examined the patient, reviewed the History & Physical and in the interval since the performance of the History & Physical I have noted the following changes of clinical significance: no changes noted
[2024-09-12] MEDS ORDERED: ROCURONIUM BROMIDE 10 MG/ML 5 ML VIAL IV ONE (12:25)
[2024-09-12] MEDS ORDERED: ONDANSETRON INJ 2 MG/ML 2 ML VIAL ONE (12:25)
[2024-09-12] MEDS ORDERED: LIDOCAINE 2% 2 ML VIAL/AMP(20MG/ML) INFIL ONE (12:25)
[2024-09-12] MEDS ORDERED: DEXAMETHASONE SOD INJ 4 MG/ML VIAL ONE (12:25)
[2024-09-12] MEDS ORDERED: MIDAZOLAM HCL 1 MG/ML 2ML VIAL ONE (12:25)
[2024-09-12] MEDS ORDERED: GLYCOPYRROLATE 0.2 MG/ML VIAL ONE (12:25)
[2024-09-12] MEDS ORDERED: PROPOFOL IV EMULSION 10 MG/ML 20 ML VIAL IV ONE (12:25)
[2024-09-12] MEDS ORDERED: fentaNYL citrate PF 100 MCG/2 ML VIAL ONE (12:25)
[2024-09-12] MEDS ORDERED: SUGAMMADEX SODIUM 200 MG/2 ML VIAL IV ONE (12:33)
[2024-09-12] MEDS: LR 60ML/HR IV SCH (12:42)
[2024-09-12] MEDS: Patient's HEIGHT &/or WEIGHT Needed STA (12:42)
[2024-09-12] MEDS ORDERED: ONDANSETRON INJ 2 MG/ML 2 ML VIAL IV PRN (13:13)
[2024-09-12] MEDS ORDERED: PROMETHAZINE HCL 6.25 MG in SODIUM CHLORIDE 0.9% 50 ML IV PRN (13:13)
[2024-09-12] MEDS ORDERED: fentaNYL citrate PF 100 MCG/2 ML VIAL IV PRN (13:13)
[2024-09-12] MEDS ORDERED: ePHEDrine sulfate 50 MG/ML AMP IV PRN (13:13)
[2024-09-12] MEDS ORDERED: ATROPINE SULFATE 0.1 MG/ML 10ML SYR IV PRN (13:13)
[2024-09-12] MEDS ORDERED: BUPIVACAINE 0.5 % 5 MG/1 ML PF 10ML VIAL ONE (13:17)
[2024-09-12] MEDS: ceFAZolin 2000MG 2,000 MG/15 ML SYR IV SCH (13:33)
--- NOTE | 2024-09-12 15:12 | Operative Report ---
PG Post Operative Report Pre & Post Diagnosis Operation Date: 09/12/24 13:00 Pre-Op Diagnosis: Displaced Right Humerus Fracture Post-Op Diagnosis: Displaced Right Humerus Fracture I identified the patient and participated in the time-out.: Yes Procedure Operation Date: 09/12/24 13:00 Actual Procedures p Open Reduction Internal Fixation Right Proximal Humerus Fracture(Right) - Fausto Pantoja DO Surgeon Fausto Pantoja DO Financial Reporting Director Fausto Castañeda PA-C Estimated Blood Loss 300 Findings Consistent with Post-Op Diagnosis Specimens None Description of Procedure On September 12, 2024 Payam arrived at [facility] for the above procedure. He was seen in the preoperative holding area and the operative extremity was identified and signed. Is given a preoperative antibiotic and a right interscalene nerve block. He was taken back the operative room and laid on table supine position. He was put under general anesthesia. He was put into the beachchair position. The right shoulder was prepped and draped in sterile fashion. A timeout was done. The patient and the operative extremity was properly identified. A deltopectoral approach was used. Dissection was taken down through the fascia. The deltoid was retracted laterally and the conjoined tendon was retracted medially. The fracture was identified. Time was spent cleaning the fracture edges. The surgical site was then irrigated. The long head of the biceps tendon was visualized and used to help align the fracture back up. The fracture was reduced and a Synthes 5 hole proximal humeral locking plate was placed. Guidepins were placed both proximally and distally to hold the plate in place. Fluoroscopic images and images showed near anatomic alignment of the fracture. Locking screws were placed both proximally and distally to hold the plate in place. The length of the locking screws were checked on fluoroscopy. The guide pins were then removed. Final fluoroscopic images showed overall good alignment of the fracture. The wound was then irrigated. Hemostasis was obtained. The deltopectoral interval was closed with 2-0 Vicryl suture. Skin was closed with 3-0 Vicryl and linda. He was placed in a soft dressing. He was then placed in an arm sling. He was then extubated and transferred to a hospital bed. He was taken to the postanesthesia care unit in stable condition. He tolerated the procedure well. Fausto Castañeda PA-C, was present for the entire procedure. He was critical for patient positioning, prepping, draping, retraction exposure, wound closure and application of sterile dressing. I attest to the content of the Intraoperative Record and any orders documented therein. Any exceptions are noted below.
[2024-09-12] MEDS: BUPIVACAINE/EPINEPHRINE 0.5% MPF 1:200,000 30 ML VIAL ONE (15:26)
--- NOTE | 2024-09-12 15:52 | XRay Report ---
XR shoulder RT min 2V routine HISTORY: 74 years-old Male Post shoulder surgery acute fracture of the right proximal humerus COMPARISON: 09/08/2024 TECHNIQUE: 2 views of the right humerus FINDINGS: Acute proximal right humerus fracture redemonstrated. Status post placement of lateral plate and scre w fusion with overlying skin linda, expected postoperative soft tissue swelling with deep tissue ai r. There is improved near anatomic alignment. Proximal humeral cortical irregularity redemonstrated m edially. No dislocation. IMPRESSION: Improved alignment of the acute right proximal humeral fracture status post ORIF. ACT 112: Negative or not required by law. The above report was generated using voice recognition software. It may contain grammatical, syntax o r spelling errors. Electronically signed by: Shan Reed M.D. 09/12/2024 3:50 PM
--- NOTE | 2024-09-12 16:45 | Fluoroscopy Report ---
FL humerus RT 2V CLINICAL HISTORY: RIGHT PROXIMAL HUMERUS TECHNIQUE: 2 views were obtained with the C-arm in the OR with the above procedure. Total fluoroscopy time was 27.4 seconds. Radiation dose was 1.99 mGy. Comparison: Comparison is made to shoulder radiograph 09/08/2024 FINDINGS/IMPRESSION: Intraoperative images were obtained of open reduction internal fixation of the h umeral fracture. Please correlate with intraoperative fluoroscopy and operative report. ACT 112: Negative or not required by law. Electronically signed by: Humphrey Paiz M.D. 09/12/2024 4:44 PM
--- NOTE | 2024-09-12 17:17 | XRay Report ---
XR chest 1V portable CLINICAL HISTORY: hypoxia TECHNIQUE: Single frontal radiograph of the chest was obtained. Comparison: Comparison is made to chest radiograph 08/29/2024 FINDINGS: Postoperative changes are seen in the right shoulder. Calcified aortic knob is seen. The lungs are cl ear. No evidence of pleural effusion or pneumothorax. IMPRESSION: No acute abnormalities and in particular no radiographic evidence of pneumonia. ACT 112: Negative or not required by law. Electronically signed by: Humphrey Paiz M.D. 09/12/2024 5:16 PM
[2024-09-12 17:37] LABS: Hematocrit (blood only) 38.9 % (42.0-52.0); Mean Corpuscular Hemoglobin 30.9 pg (25.0-34.0); Mean Corpuscular Hgb Conc 33.4 g/dL (32.0-36.0); Mean Corpuscular Volume 92.4 fL (80.0-100.0); Mean Platelet Volume 10.1 fL (9.4-12.4); Platelet Count 315 K/uL (130-400); RDW Coefficient of Variation 16.6 % (11.5-14.5); RDW Standard Deviation 54.9 fL (36.4-46.3); Red Blood Count 4.21 M/uL (4.70-6.10); White Blood Count 13.37 K/ul (4.8-10.8)
[2024-09-12 17:50] LABS: iSTAT Allen Test Pass; iSTAT Art Bld Gas pCO2 Correct 30 mmHg (35-46); iSTAT Arterial Blood Gas HCO3 20 meg/L (19-24); iSTAT Arterial Blood Gas pO2 C 50; iSTAT Carbon Dioxide 21 mmol/L (24-31); iSTAT Hematocrit 35 % (42-52); iSTAT Hemoglobin 11.9 g/dl (14.0-18.0); iSTAT Potassium 4.1 mmol/L (3.3-5.0); iSTAT Sample Type Arterial; iSTAT Site L Radial; iSTAT Sodium 140 mmol/L (135-144); iSTAT SpO2 89
[2024-09-12] MEDS: OPTIRAY 320 125ml IV ONE (17:54)
[2024-09-12 17:56] LABS: Albumin Globulin Ratio 1.4 (0.9-2); BUN Creatinine Ratio 22.5 (10-20); Bilirubin,Total 1.1 mg/dl (0.2-1.0); Calcium 8.6 mg/dl (8.6-10.3); Creatinine Clr Calc Pharmacy 88.9 ml/min; Globulin 2.8 gm/dl (2.5-4.0); Potassium 4.2 mmol/L (3.5-5.1); Total Protein 6.8 gm/dl (6.0-8.3)
--- NOTE | 2024-09-12 17:56 | Hospitalist Consultation ---
Date of Consultation September 12, 2024 Assessment & Plan (1) Hypoxemia: Acute - Etiology uncertain, thus far CXR neg for PTX, PNA, pvc/pulmonary edema - Bedside ultrasound performed by attending w/o obvious occlusive DVTs of bilateral LE - Obtain stat CTA chest to r/o PE, ordered - Basic labs ordered including cbc, cmp, coags, poc abg, with reported paO2 of 50 - Refractory to 10L of supplemental O2, CPAP applied by RT PACU - Change admission floor to PCU - Will continue to follow along (2) Fracture of proximal end of right humerus: S/p ORIF by Dr. Pantoja - management per primary service including pain control, therapy consult, NWB to RUE (3) Acute hypoxemic respiratory failure: Plan chronic/stable medical problems: - HLD - continue simvastatin - BPH - continue tamsulosin - DMT2 - diabetic diet ordered, hold metformin, a1c 8.8% in 08/2024, added accuchecks ac and hs and lantus 8u BID and lispro with CF 50 and CR 16 - Hypothyroidism - continue levothyroxine. Defer chemoppx for now until results of CTA available for review. If no evidence of acute PE, recommend Lovenox 40mg sq daily but ultimately at discretion of primary service. AM labs have been ordered. Thank you for allowing us to participate in the care of your patient, will follow along. Above plan of care has been established in collaboration with Dr. Bazan who has also seen and evaluated this patient. Further orders will be recommended as clinically warranted. Supervising Physician Co-Signing Physician Notes I personally saw and examined the patient. I independently reviewed the labs, EKG, imaging, problem list, medication list, past medical history and family history. I verified all harrell points and agree with Sherley Liu PA-C with the following exceptions and/or additions: 74 year old male with recent bacteremia and choledocholithiasis (without abdominal pain) with post operative. POCUS US performed in PACU without DVT, pericardial effusion, normal LVEF and right ventricle volume, lung sliding present in apically. O/E HS RRR, no murmurs, Chest CTAB, Abdo SNT, right arm in sling A/P Post operative hypoxia - evolving respiratory distress. Progressively worsening post operative hypoxia without any etiology found on CT for PE (mild right hemidiaphragm raised from block but should not be causing this degree of hypoxia). Interestingly he was quite hypoxic in the ER with his original bacteremia and shoulder fracture but spontaneously resolved when transferred to the floor room in hours. Unclear etiology at this time - ?left to right shunt - will get formal TTE with bubble study, ?fat embolism - would require supportive care only. PEEP on CPAP increased to 10 and now able to wean FiO2 down to 80% with less respiratory distress from patient. Patient transferred to ICU (discussed with ICU DENTAL ASSISTING INSTRUCTOR) given lack of reversible/diagnosed etiology therefore concern for possibly needing intubation overnight. History of Present Illness Reason for Consultation: Medical consult for hypoxia Requesting Physician: Dr. Arana, sizing end bander Physician: Fausto Pantoja, History of Present Illness Payam is a 74 yo M with a pmhx of choledocholithiasis complicated by bacteremia who was recently admitted to [facility] 08/29 initially due to a fall and then required transfer to [place] for further care. At the time of that admission, he was found to have a displaced right humerus fracture, was placed in a Coaptation splint until he was medically stable to undergo surgery. He followed up with Dr. Pantoja and presented to [facility] today for ORIF of the right shoulder. He tolerated the surgical procedure well and was transferred to PACU where he developed hypoxia that was refractory to supplemental O2. Oxymask was applied and titrated to 10L and despite that his oxygen saturations hovered between 87-89%. He denies feeling short of breath, palpitations, or having any chest pain. He has no prior h/o DVT, PE, CHF, COPD, or WAN. A CXR has been obtained w/o evidence of a PTX. He does have a h/o transient hypoxia from 08/29 while in the ER, at one point requiring 15L on a NRB and then his hypoxia resolved spontaneously. Hospitalists have been consulted for medical management of his acute hypoxia. Allergies Allergy/AdvReac Type Severity Reaction Status Date / Time No Known Allergies Allergy Verified 08/29/24 18:25 Home Medications Medication Instructions Recorded Confirmed Type clopidogrel 75 mg tablet 75 mg PO QAM 08/17/20 09/12/24 History metformin 500 mg tablet 1,000 mg PO BID 08/17/20 09/12/24 History aspirin 81 mg tablet,delayed 81 mg PO DAILY 03/31/23 09/08/24 History release levothyroxine 88 mcg tablet 88 mcg PO QAM 03/31/23 09/12/24 History (Synthroid) magnesium oxide 400 mg PO BID 03/31/23 09/12/24 History simvastatin 40 mg tablet 40 mg PO DAILY 03/31/23 09/12/24 History tamsulosin 0.4 mg capsule 0.4 mg PO DAILY 03/31/23 09/12/24 History blood sugar diagnostic (OneTouch #25 ea 04/14/23 07/09/23 Rx Verio test strips) calcitriol 0.25 mcg capsule 0.25 mcg PO QAM #30 caps 04/14/23 09/12/24 Rx fluoxetine 40 mg capsule 40 mg PO HS 05/12/23 09/12/24 History multivit with 1 tab PO DAILY 05/12/23 09/12/24 History tcu-sodv-EF-#190herbal 18 mg iron-800 mcg-150 mg tablet (Vitamin D3 Complete) nitroglycerin 0.3 mg sublingual 0.3 mg sublingual UD PRN Chest Pain 05/20/23 09/12/24 History tablet polyethylene glycol 3350 17 gram 0 g PO DAILY PRN constipation 05/20/23 09/12/24 History oral powder packet (Miralax) pantoprazole 40 mg tablet,delayed 40 mg PO QAM #90 tabs 06/08/23 09/08/24 Rx release hydrocodone 5 mg-acetaminophen 325 1 tab PO Q6H PRN pain #10 tabs 09/08/24 09/12/24 Rx mg tablet tramadol 50 mg tablet 50 mg PO DIRECTED 09/08/24 09/12/24 History lactobacillus combination no.4 3 3,000 mmu cells PO DAILY 09/12/24 09/12/24 History billion cell capsule (Probiotic) Patient History Medical History Dizziness Diabetes mellitus, type 2 Depression Hx of melanoma of skin Acute pancreatitis Borderline hyperlipidemia Poor historian History of COVID-19 Aneurysm Enlarged prostate Diabetes TIA (transient ischemic attack) Surgical History H/O umbilical hernia repair (05/16/23) Hx laparoscopic cholecystectomy (05/16/23) Family history of reaction to anesthesia History of esophagogastroduodenoscopy (EGD) History of ERCP S/P colonoscopy S/P hernia repair Social History Smoking Status: Former smoker Tobacco Type: Cigarettes Cigarettes Per Day: quit smoking 40+ years; Second Hand Exposure: No; Do You Dip or Chew Tobacco: Yes (last chew yesterday morning); Tobacco Cessation Education Requested by Patient: No Hx Alcohol Use: No Hx Substance Use: No Preferred Language: Azerbaijani Communication Ability: Effective Communication Ability Comment: na Visual Impairment: No Limitations Hearing Ability: Normal Advertising Writer Required: No Beliefs That Will Affect Care: None marital status: Current Living Situation: Alone Current Living Situation Comment: dtr goes to drs appointments - he lives by himself current occupational status: retired Other Information That Helps Us Care for You: No Feels Safe at Home: Yes Safety Concerns: Feels Safe At This Time Assistive Devices: Glasses Review of Systems 2 Review of Systems: All systems reviewed and are unremarkable except as noted in HPI and below. Denies fever, chills, fatigue, headache, nasal congestion, sore throat, cough, chest pain, shortness of breath, palpitations, orthopnea, PND, abdominal pain, n/v/d, constipation, dysuria, hematuria, frequency, back pain, joint pain or swelling, easy bruising or bleeding, skin lesions or rashes. Physical Exam 2 Physical Exam: GENERAL: 74 yo well-nourished elderly WM. NAD. EYES: EOMI. PERRLA. Anicteric. HENT: Moist mucous membranes. No cervical lymphadenopathy. LUNGS: Clear to auscultation bilaterally. No accessory muscle use. No W/R/R. CARDIOVASCULAR: S1 S2 tachycardic. No M/G/R. No JVD. ABDOMEN: Soft, non-tender and non-distended. No palpable masses. Bowel sounds normoactive x 4 quad. EXTREMITIES: No edema. Non-tender. Peripheral pulses +2/4. NEUROLOGIC: A&O x3. No focal neurological deficits. CN II-XII grossly intact. PSYCHIATRIC: Cooperative. Appropriate mood and affect. SKIN: Warm, dry, intact. No rashes or lesions. Results & Data Results & Data Vital Signs (Past 12 Hours) Vital Signs Temp Pulse Pulse Pulse Resp BP Pulse Ox 09/12/24 17:28 102 H 23 95 09/12/24 17:20 98 H 32 H 99/75 L 92 09/12/24 17:10 100 H 30 H 113/80 88 L 09/12/24 17:00 108 H 31 H 113/80 85 L 09/12/24 16:50 109 H 27 H 104/77 86 L 09/12/24 16:40 106 H 24 102/80 84 L 09/12/24 16:30 108 H 23 113/77 86 L 09/12/24 16:20 113 H 25 H 105/76 84 L 09/12/24 16:10 111 H 24 109/75 86 L 09/12/24 16:00 106 H 14 119/79 87 L 09/12/24 15:50 106 H 20 98/78 L 86 L 09/12/24 15:40 100 H 20 109/79 90 09/12/24 15:30 100 H 22 111/77 94 09/12/24 15:23 36.0 C L 99 H 26 H 109/75 94 09/12/24 12:04 36.5 C 68 18 149/94 H 95 O2 Del Method O2 Flow Rate FiO2 09/12/24 17:28 80 09/12/24 17:20 CPAP 09/12/24 17:10 Oxymask 10 09/12/24 17:00 Oxymask 10 09/12/24 16:50 Oxymask 6 09/12/24 16:40 Oxymask 4 09/12/24 16:30 Oxymask 4 09/12/24 16:20 Oxymask 4 09/12/24 16:10 Nasal Cannula 4 09/12/24 16:00 Nasal Cannula 4 09/12/24 15:50 Oxymask 4 09/12/24 15:40 Nasal Cannula 4 09/12/24 15:30 Oxymask 6 09/12/24 15:23 Oxymask 6 09/12/24 12:04 Room Air Laboratory Results 09/12/24 17:21 Diagnostic Findings Humerus X-Ray 09/12/24 13:00 FL humerus RT 2V CLINICAL HISTORY: RIGHT PROXIMAL HUMERUS TECHNIQUE: 2 views were obtained with the C-arm in the OR with the above procedure. Total fluoroscopy time was 27.4 seconds. Radiation dose was 1.99 mGy. Comparison: Comparison is made to shoulder radiograph 09/08/2024 FINDINGS/IMPRESSION: Intraoperative images were obtained of open reduction internal fixation of the humeral fracture. Please correlate with intraoperative fluoroscopy and operative report. ACT 112: Negative or not required by law. Electronically signed by: Humphrey Paiz M.D. 09/12/2024 4:44 PM Shoulder X-Ray 09/12/24 15:22 XR shoulder RT min 2V routine HISTORY: 74 years-old Male Post shoulder surgery acute fracture of the right proximal humerus COMPARISON: 09/08/2024 TECHNIQUE: 2 views of the right humerus FINDINGS: Acute proximal right humerus fracture redemonstrated. Status post placement of lateral plate and screw fusion with overlying skin linda, expected postoperative soft tissue swelling with deep tissue air. There is improved near anatomic alignment. Proximal humeral cortical irregularity redemonstrated medially. No dislocation. IMPRESSION: Improved alignment of the acute right proximal humeral fracture status post ORIF. ACT 112: Negative or not required by law. The above report was generated using voice recognition software. It may contain grammatical, syntax or spelling errors. Electronically signed by: Shan Reed M.D. 09/12/2024 3:50 PM Chest X-Ray 09/12/24 16:56 XR chest 1V portable CLINICAL HISTORY: hypoxia TECHNIQUE: Single frontal radiograph of the chest was obtained. Comparison: Comparison is made to chest radiograph 08/29/2024 FINDINGS: Postoperative changes are seen in the right shoulder. Calcified aortic knob is seen. The lungs are clear. No evidence of pleural effusion or pneumothorax. IMPRESSION: No acute abnormalities and in particular no radiographic evidence of pneumonia. ACT 112: Negative or not required by law. Electronically signed by: Humphrey Paiz M.D. 09/12/2024 5:16 PM PG Care Time/CCT Total # of Minutes Spent Total Time Spent with Patient: Total time spent is greater than 50% in coordination of care (as documented) at patient's floor/unit and/or counseling patient: 80 minutes Critical Care Time: Yes Total Critical Care Time: 40 Coding Level of Care Code 10236 IN/OBS CONSULT LVL 5,80M Diagnoses Hypoxemia R09.02 Fracture of proximal end of right humerus S42.291A Encounter type: initial encounter Fracture alignment: displaced Fracture morphology: other fracture Fracture type: closed Acute hypoxemic respiratory failure J96.01 Additional Codes Critical Care Time - Critical Care Time: Yes ([id number]) (2) Fracture of proximal end of right humerus Encounter type: initial encounter Fracture alignment: displaced Fracture morphology: other fracture Fracture type: closed Qualified Code(s): S42.291A - Other displaced fracture of upper end of right humerus, initial encounter for closed fracture
[2024-09-12 17:57] LABS: Basophils # (auto) 0.03 K/uL (0.00-0.20); Basophils % (auto) 0.2 %; Eosinophils # (auto) 0.03 K/uL (0.00-0.50); Eosinophils % (auto) 0.2 %; Immature Granulocytes # (auto) 0.05 K/uL (0.01-0.20); Immature Granulocytes % (auto) 0.4 %; Lymphocytes # (auto) 0.46 K/uL (1.20-3.40); Lymphocytes % (auto) 3.4 %; Monocytes # (auto) 0.14 K/uL (0.11-0.59); Neutrophils # (auto) 12.66 K/uL (1.40-6.50); Neutrophils % (auto) 94.8 %; Tear Drop Cells 1+
[2024-09-12 18:03] LABS: Partial Thromboplastin Time 26 Seconds (21-31)
--- NOTE | 2024-09-12 18:11 | CT Scan Report ---
CT angio chest PE protocol CLINICAL HISTORY: PE TECHNIQUE: Multidetector row helical CT of the chest was performed with angiographic protocol. Max l and sagittal reformations were obtained. Coronal and sagittal MIPS were obtained from the axial judy a set and were submitted for review. Automated dose lowering techniques and/or adjustment according to patient size were utilized for this exam. CT DOSE: 934.5 mGy.cm Comparison: CT chest 08/29/2024 FINDINGS: Lungs and pleura: 4 mm nodule in the left lower lobe (series 4 image 68), 4 mm pleural-based nodule i n the right middle lobe (image 94), and 3 mm nodule in the right lower lobe (image 100). Heart and pericardium: Heart size is normal. No pericardial effusion. Vessels: No evidence of pulmonary embolism. Mediastinum and jojo: Unremarkable. Chest wall and lower neck: Postsurgical changes about the right humeral fracture again noted. Abdomen: Partial visualization of a biliary stent. There is a small hiatal hernia. Bones: Degenerative changes in the thoracic spine. IMPRESSION: 1. No acute abnormality and in particular no evidence of pulmonary embolus. 2. Stable pulmonary nodules as above. ACT 112: Negative or not required by law. Electronically signed by: Humphrey Paiz M.D. 09/12/2024 6:10 PM
--- NOTE | 2024-09-12 18:17 | Anesthesiology Progress Note ---
Date of Service September 12, 2024 Anesthesia Post Procedure Vital Signs Vital Signs: Temp Pulse Pulse Pulse Resp BP Pulse Ox 09/12/24 17:28 102 H 23 95 09/12/24 17:20 98 H 32 H 99/75 L 92 09/12/24 17:10 100 H 30 H 113/80 88 L 09/12/24 17:00 108 H 31 H 113/80 85 L 09/12/24 16:50 109 H 27 H 104/77 86 L 09/12/24 16:40 106 H 24 102/80 84 L 09/12/24 16:30 108 H 23 113/77 86 L 09/12/24 16:20 113 H 25 H 105/76 84 L 09/12/24 16:10 111 H 24 109/75 86 L 09/12/24 16:00 106 H 14 119/79 87 L 09/12/24 15:50 106 H 20 98/78 L 86 L 09/12/24 15:40 100 H 20 109/79 90 09/12/24 15:30 100 H 22 111/77 94 09/12/24 15:23 96.8 F L 99 H 26 H 109/75 94 09/12/24 12:04 97.7 F 68 18 149/94 H 95 O2 Del Method O2 Flow Rate FiO2 09/12/24 17:28 80 09/12/24 17:20 CPAP 09/12/24 17:10 Oxymask 10 09/12/24 17:00 Oxymask 10 09/12/24 16:50 Oxymask 6 09/12/24 16:40 Oxymask 4 09/12/24 16:30 Oxymask 4 09/12/24 16:20 Oxymask 4 09/12/24 16:10 Nasal Cannula 4 09/12/24 16:00 Nasal Cannula 4 09/12/24 15:50 Oxymask 4 09/12/24 15:40 Nasal Cannula 4 09/12/24 15:30 Oxymask 6 09/12/24 15:23 Oxymask 6 09/12/24 12:04 Room Air Pain Intensity Right Shoulder: Pain Intensity: 0 Transfer of Care Handoff Completed per policy Notes Mental Status: alert / awake / arousable and participated in evaluation Patient Amnestic to Procedure: Yes Nausea / Vomiting: adequately controlled Pain: adequately controlled Airway Patency, RR, SpO2: see Notes below BP & HR: stable & adequate Hydration State: stable & adequate Anesthetic Complications: Pt Satisfied with anesthetic care Notes: Took over postoperative care from Dr. Sexton report at patients bedside, it was relayed that patient had persistent hypoxia with sats 85%. Patient also noted with slight tachycardia ~110s. Patient in no acute distress, no reports of shortness of breath, CP, anxiety. Patient using incentive spirometer with capacity of 1.25L. Patiet received right supraclavicular block, sats noted to be wnl upon arrival to PACU earlier. D/t change CXR ordered and hospitalist team consulted with concern of potential PE. Hospitalist team assessed patient, placed patient on CPAP, POC US of lower extremities revealed no DVT. Patient obtained bed at PCU and was sent to CT for scan.
[2024-09-12] MEDS ORDERED: GLUCOSE 10 TAB/TUBE PO PRN (18:19)
[2024-09-12] MEDS ORDERED: CARBOHYDRATES FOR HYPOGLYCEMIA PO PRN (18:19)
[2024-09-12] MEDS ORDERED: GLUCAGON FOR INJ 1 MG VIAL SQ PRN (18:19)
[2024-09-12] MEDS ORDERED: GLUCOSE 40% GEL 15 GM TUBE PO PRN (18:19)
[2024-09-12] MEDS ORDERED: DEXTROSE 50% 50 ML SYRINGE IV PRN (18:19)
[2024-09-12 19:22] LABS: iSTAT Allen Test Pass; iSTAT Art Bld Gas pCO2 Correct 19 mmHg (35-46); iSTAT Art Bld Gas pH Corrected 7.546 (7.35-7.45); iSTAT Arterial Blood Gas HCO3 17 meg/L (19-24); iSTAT Arterial Blood Gas pO2 C 55; iSTAT Carbon Dioxide 17 mmol/L (24-31); iSTAT FiO2 100 %; iSTAT Hematocrit 36 % (42-52); iSTAT Hemoglobin 12.2 g/dl (14.0-18.0); iSTAT Potassium 4.3 mmol/L (3.3-5.0); iSTAT Sample Type Arterial; iSTAT Site L Radial; iSTAT Sodium 138 mmol/L (135-144); iSTAT SpO2 96
--- NOTE | 2024-09-12 19:45 | Critical Care Consultation ---
Date of Consultation September 12, 2024 Assessment & Plan (1) Acute hypoxemic respiratory failure: Reason Critically Ill: 74-year-old male with DM type II, HLD, TIA, depression, history of pancreatitis and recent admission with cholangitis in which he underwent ERCP at [facility], now presents to the ICU following ORIF of right shoulder, in which the patient became significantly hypoxic postprocedure and currently requiring CPAP with high FiO2 requirement. Neuro - [facility] ICU: Negative Depressioncontinue fluoxetine when appropriate Cardiac - TachycardiaSinus tachycardia on EKG. Troponin within normal limits. Hemodynamically stable. No intervention needed at this time, continue to monitor on telemetry. HLDcontinue statin when appropriate Respiratory - Acute hypoxemic respiratory failure No previous history of pulmonary disease. Underwent ORIF of right shoulder with right clavicular nerve block, And became significantly hypoxic postprocedure in PACU. - Pulmonary exam grossly unremarkable other than hypoxemia. No significant acid-base imbalance - CTA negative for PE. No infiltrates or pulmonary congestion noted on imaging. - Chest x-ray with elevation of the right diaphragm consistent with nerve block. Doubt this would be significant contribution to hypoxemia - Rule out for infectious process - Consider fat emboli? Continue with supportive care - Currently on CPAP. Appears to be improving. Will repeat ABG. -Follow-up morning chest x-ray - Continuous monitoring pulse ox GI - N.p.o. for now Acute cholangitisstatus post ERCP At [facility]. Continue to trend LFTs. Monitor RENAL/LYTES - Creatinine within normal limits, monitor routine BMPs and replete lites as indicated - Strict I's and O's ENDO - DM type IIcontinue with basal bolus/sliding scale insulin regimen. ICU hyperglycemic protocol Hypothyroidismcontinue Synthroid HEME - H&H stable, monitor routine CBC Ortho Status post ORIF right shoulder. Management per surgical team ID - Unsure of infectious process at this time. Bio fire currently pending. Procalcitonin within normal limits. - Start on ceftriaxone for now Recent E. coli bacteremia 08/29 for which she completed treatment LINES/IV ACCESS - Peripheral IVs DVT PROPHYLAXIS - SCDs, Defer anticoagulation to surgery service I have personally spent 50 minutes of critical care time in the direct management of this patient. This is a life/limb threatening event. This includes time spent evaluating patient, direct bedside care, chart review, placing orders, interpretation of diagnostic studies, discussion with consultants, patient, and family members, as well as other required patient management activities. This time is exclusive of all separately billable procedures, and teaching time and separate from and in addition to any other critical care service time. Thank you for allowing us to participate in the care of this patient. Please refer to my attending physician's documentation for any further recommendations. (2) Fracture of proximal end of right humerus: (3) Acute cholangitis: Supervising Physician Co-Signing Physician Notes Patient seen and examined. EMR reviewed. Discussed with critical care PAU and agree with assessment plan as noted. Please refer to my progress note from 09/13/2024 for additional details History of Present Illness Attending Physician: Fausto Pantoja, DO History of Present Illness Patient is a 74-year-old male with past medical history of DM type II, HLD, TIA, depression, pancreatitis, and recent history of colecholelithiasis complicated by bacteremia and was transferred for ERCP to [facility]. Patient was found to have displaced right humerus fracture which was splinted until he was stable to undergo surgery. Patient presented to [facility] for planned ORIF of the right shoulder earlier today. He received a right supraclavicular block, and in postop care he was noted to have significant hypoxia and tachycardia. Patient was sent for CTA chest which was negative for PE, and otherwise unremarkable. Patient became progressively hypoxic, and was placed on BiPAP and transferred to the ICU. Shortly after arrival to the ICU ABG was obtained which showed severe hypoxia with respiratory alkalosis. Patient was transitioned to CPAP settings with increased PEEP and seem to responded well. On assessment, patient complains of shortness of breath but is otherwise asymptomatic. He denies any chest pain, palpitations, abdominal pain, cough or congestion, nausea or vomiting or abdominal pain. He denies fevers, dizziness, syncopal events, sore throat. He denies swelling in hands or feet or pain in the lower extremities. The patient's EKG was unremarkable. He seems to be responding well to CPAP settings and currently weaning FiO2. Suspect possible fat emboli. Will continue with supportive care in ICU for now. Allergies Allergy/AdvReac Type Severity Reaction Status Date / Time No Known Allergies Allergy Verified 08/29/24 18:25 Home Medications Medication Instructions Recorded Confirmed Type clopidogrel 75 mg tablet 75 mg PO QAM 08/17/20 09/12/24 History metformin 500 mg tablet 1,000 mg PO BID 08/17/20 09/12/24 History aspirin 81 mg tablet,delayed 81 mg PO DAILY 03/31/23 09/08/24 History release levothyroxine 88 mcg tablet 88 mcg PO QAM 03/31/23 09/12/24 History (Synthroid) magnesium oxide 400 mg PO BID 03/31/23 09/12/24 History simvastatin 40 mg tablet 40 mg PO DAILY 03/31/23 09/12/24 History tamsulosin 0.4 mg capsule 0.4 mg PO DAILY 03/31/23 09/12/24 History blood sugar diagnostic (OneTouch #25 ea 04/14/23 07/09/23 Rx Verio test strips) calcitriol 0.25 mcg capsule 0.25 mcg PO QAM #30 caps 04/14/23 09/12/24 Rx fluoxetine 40 mg capsule 40 mg PO HS 05/12/23 09/12/24 History multivit with 1 tab PO DAILY 05/12/23 09/12/24 History [id number]#190herbal 18 mg iron-800 mcg-150 mg tablet (Vitamin D3 Complete) nitroglycerin 0.3 mg sublingual 0.3 mg sublingual UD PRN Chest Pain 05/20/23 09/12/24 History tablet polyethylene glycol 3350 17 gram 0 g PO DAILY PRN constipation 05/20/23 09/12/24 History oral powder packet (Miralax) pantoprazole 40 mg tablet,delayed 40 mg PO QAM #90 tabs 06/08/23 09/08/24 Rx release hydrocodone 5 mg-acetaminophen 325 1 tab PO Q6H PRN pain #10 tabs 09/08/24 09/12/24 Rx mg tablet tramadol 50 mg tablet 50 mg PO DIRECTED 09/08/24 09/12/24 History lactobacillus combination no.4 3 3,000 mmu cells PO DAILY 09/12/24 09/12/24 History billion cell capsule (Probiotic) Patient History Medical History Dizziness Diabetes mellitus, type 2 Depression Hx of melanoma of skin Acute pancreatitis Borderline hyperlipidemia Poor historian History of COVID-19 Aneurysm Enlarged prostate Diabetes TIA (transient ischemic attack) Surgical History H/O umbilical hernia repair (05/16/23) Hx laparoscopic cholecystectomy (05/16/23) Family history of reaction to anesthesia History of esophagogastroduodenoscopy (EGD) History of ERCP S/P colonoscopy S/P hernia repair Social History Smoking Status: Former smoker Tobacco Type: Cigarettes Cigarettes Per Day: quit smoking 40+ years; Second Hand Exposure: No; Do You Dip or Chew Tobacco: Yes (last chew yesterday morning); Tobacco Cessation Education Requested by Patient: No Hx Alcohol Use: No Hx Substance Use: No Preferred Language: Zambian Communication Ability: Effective Communication Ability Comment: na Visual Impairment: No Limitations Hearing Ability: Normal 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 Beliefs That Will Affect Care: None marital status: Current Living Situation: Alone Current Living Situation Comment: dtr goes to drs appointments - he lives by himself current occupational status: retired Other Information That Helps Us Care for You: No Feels Safe at Home: Yes Safety Concerns: Feels Safe At This Time Assistive Devices: Glasses Review of Systems Review of Systems: All systems reviewed & are unremarkable except as noted in HPI & below Physical Exam Constitutional: cooperative and comfortable; no acute distress Eyes: PERRL, conjunctivae normal, anicteric sclerae ENMT: external ear and nose normal, oropharynx normal Neck: trachea midline, no thyromegaly Respiratory: normal respiratory effort, lungs clear to auscultation Cardiovascular: RRR, no murmur, no edema Rate/Rhythm: + tachycardic Heart Sounds: normal S1 and normal S2; no murmur Extremities: no edema Gastrointestinal (Abdomen): normal bowel sounds, soft, nontender, no hepatosplenomegaly Musculoskeletal: no cyanosis or clubbing, extremities motor strength 5/5 Skin: no rashes, warm and dry Neurologic: PERRL, EOMI, accommodation nl, no face palsy, no dysarthria Psychiatric: A+Ox3, euthymic affect Results & Data Results & Data Vital Signs (Past 12 Hours) Vital Signs Temp Pulse Pulse Pulse Resp BP BP 09/12/24 19:33 108 H 24 09/12/24 19:18 111 H 27 H 09/12/24 19:16 123/82 09/12/24 19:16 123/82 09/12/24 19:16 123/82 09/12/24 19:05 09/12/24 18:33 110 H 20 09/12/24 18:29 09/12/24 18:21 102 H 30 H 09/12/24 18:18 36.6 C 106 H 17 125/83 09/12/24 18:00 36.6 C 92 H 14 125/83 09/12/24 17:50 98 H 22 114/75 09/12/24 17:40 91 H 28 H 106/80 09/12/24 17:28 102 H 23 09/12/24 17:20 98 H 32 H 99/75 L 09/12/24 17:10 100 H 30 H 113/80 09/12/24 17:00 108 H 31 H 113/80 09/12/24 16:50 109 H 27 H 104/77 09/12/24 16:40 106 H 24 102/80 09/12/24 16:30 108 H 23 113/77 09/12/24 16:20 113 H 25 H 105/76 09/12/24 16:10 111 H 24 109/75 09/12/24 16:00 106 H 14 119/79 09/12/24 15:50 106 H 20 98/78 L 09/12/24 15:40 100 H 20 109/79 09/12/24 15:30 100 H 22 111/77 09/12/24 15:23 36.0 C L 99 H 26 H 109/75 09/12/24 12:04 36.5 C 68 18 149/94 H Pulse Ox Pulse Ox O2 Del Method O2 Del Method O2 Flow Rate O2 Flow Rate FiO2 09/12/24 19:33 99 09/12/24 19:18 100 09/12/24 19:16 09/12/24 19:16 09/12/24 19:16 09/12/24 19:05 98 BiPAP 70 09/12/24 18:33 88 L 09/12/24 18:29 CPAP 09/12/24 18:21 84 L 09/12/24 18:18 90 Oxymask 14 09/12/24 18:00 91 Oxymask 14 09/12/24 17:50 91 CPAP 10/17/24 17:40 89 L CPAP 09/12/24 17:28 95 80 09/12/24 17:20 92 CPAP 09/12/24 17:10 88 L Oxymask 10 09/12/24 17:00 85 L Oxymask 10 09/12/24 16:50 86 L Oxymask 6 09/12/24 16:40 84 L Oxymask 4 09/12/24 16:30 86 L Oxymask 4 09/12/24 16:20 84 L Oxymask 4 09/12/24 16:10 86 L Nasal Cannula 4 09/12/24 16:00 87 L Nasal Cannula 4 09/12/24 15:50 86 L Oxymask 4 09/12/24 15:40 90 Nasal Cannula 4 09/12/24 15:30 94 Oxymask 6 09/12/24 15:23 94 Oxymask 6 09/12/24 12:04 95 Room Air Diagnostic Findings CT angio chest PE protocol CLINICAL HISTORY: PE TECHNIQUE: Multidetector row helical CT of the chest was performed with angiographic protocol. Coronal and sagittal reformations were obtained. Coronal and sagittal MIPS were obtained from the axial data set and were submitted for review. Automated dose lowering techniques and/or adjustment according to patient size were utilized for this exam. CT DOSE: 934.5 mGy.cm Comparison: CT chest 08/29/2024 FINDINGS: Lungs and pleura: 4 mm nodule in the left lower lobe (series 4 image 68), 4 mm pleural-based nodule in the right middle lobe (image 94), and 3 mm nodule in the right lower lobe (image 100). Heart and pericardium: Heart size is normal. No pericardial effusion. Vessels: No evidence of pulmonary embolism. Mediastinum and jojo: Unremarkable. Chest wall and lower neck: Postsurgical changes about the right humeral fracture again noted. Abdomen: Partial visualization of a biliary stent. There is a small hiatal hernia. Bones: Degenerative changes in the thoracic spine. IMPRESSION: 1. No acute abnormality and in particular no evidence of pulmonary embolus. 2. Stable pulmonary nodules as above. ACT 112: Negative or not required by law. Electronically signed by: Humphrey Paiz M.D. 09/12/2024 6:10 PM Coding Level of Care Code 96951 CRITICAL CARE 1ST 30-74M Diagnoses Acute hypoxemic respiratory failure J96.01 Fracture of proximal end of right humerus S42.291A Encounter type: initial encounter Fracture alignment: displaced Fracture morphology: other fracture Fracture type: closed Acute cholangitis K83.09 (2) Fracture of proximal end of right humerus Encounter type: initial encounter Fracture alignment: displaced Fracture morphology: other fracture Fracture type: closed Qualified Code(s): S42.291A - Other displaced fracture of upper end of right humerus, initial encounter for closed fracture
[2024-09-12] MEDS: FLUoxetine HCL 20 MG CAP PO SCH (20:05)
[2024-09-12] MEDS: TAMSULOSIN HCL 0.4 MG CAP PO SCH (20:06)
[2024-09-12] MEDS: INSULIN ASPART PER UNIT CHARGE SC SCH (20:13)
[2024-09-12] MEDS: LANTUS PER UNIT CHARGE SQ SCH (20:13)
[2024-09-12] MEDS: ICU Protocol for HYPERglycemia SCH (20:24)
[2024-09-12 20:31] LABS: Troponin I High Sensitivity 7.4 pg/ml (0-20)
[2024-09-12] MEDS ORDERED: PHARMACY GLYCEMIC MGMT CONSULT PRN (20:59)
[2024-09-12] MEDS: cefTRIAXone SODIUM 2,000 MG/50 ML BAG IV SCH (21:44)
[2024-09-12 23:05] LABS: iSTAT Allen Test Pass; iSTAT Art Bld Gas pCO2 Correct 21 mmHg (35-46); iSTAT Art Bld Gas pH Corrected 7.569 (7.35-7.45); iSTAT Arterial Blood Gas HCO3 19 meg/L (19-24); iSTAT Arterial Blood Gas pO2 C 92; iSTAT Carbon Dioxide 20 mmol/L (24-31); iSTAT FiO2 50 %; iSTAT Hematocrit 34 % (42-52); iSTAT Hemoglobin 11.6 g/dl (14.0-18.0); iSTAT Potassium 4.6 mmol/L (3.3-5.0); iSTAT Sample Type Arterial; iSTAT Site L Radial; iSTAT Sodium 137 mmol/L (135-144); iSTAT SpO2 100
[2024-09-13] MEDS: INSULIN ASPART PER UNIT CHARGE SC SCH ×2 (00:01→11:43)
[2024-09-13 00:18] LABS: Adenovirus PCR Not Detected (NotDetected); Bordetella parapertussis PCR Not Detected (NotDetected); Bordetella pertussis PCR Not Detected (NotDetected); Chlamydia pneumoniae PCR Not Detected (NotDetected); Coronavirus 229E PCR Not Detected (NotDetected); Coronavirus CoV-2 (COVID19)PCR Not Detected (NotDetected); Coronavirus HKU1 PCR Not Detected (NotDetected); Coronavirus NL63 PCR Not Detected (NotDetected); Coronavirus OC43PCR Not Detected (NotDetected); Human Metapneumovirus PCR Not Detected (NotDetected); Influenza A PCR Not Detected (NotDetected); Influenza B PCR Not Detected (NotDetected); Mycoplasma pneumoniae PCR Not Detected (NotDetected); Parainfluenza Virus 1 PCR Not Detected (NotDetected); Parainfluenza Virus 2 PCR Not Detected (NotDetected); Parainfluenza Virus 3 PCR Not Detected (NotDetected); Parainfluenza Virus 4 PCR Not Detected (NotDetected); Respiratory Syncytial VirusPCR Not Detected (NotDetected); Rhinovirus/Enterovirus PCR Not Detected (NotDetected)
[2024-09-13 00:22] LABS: C Reactive Protein 0.99 mg/dl (0-0.5)
[2024-09-13 05:19] LABS: Basophils # (auto) 0.02 K/uL (0.00-0.20); Basophils % (auto) 0.2 %; Eosinophils # (auto) 0.01 K/uL (0.00-0.50); Eosinophils % (auto) 0.1 %; Hemoglobin 10.7 g/dl (14.0-18.0); Immature Granulocytes # (auto) 0.04 K/uL (0.01-0.20); Immature Granulocytes % (auto) 0.4 %; Lymphocytes # (auto) 1.23 K/uL (1.20-3.40); Lymphocytes % (auto) 12.8 %; Mean Corpuscular Hemoglobin 29.3 pg (25.0-34.0); Mean Corpuscular Hgb Conc 32.4 g/dL (32.0-36.0); Mean Corpuscular Volume 90.4 fL (80.0-100.0); Mean Platelet Volume 9.8 fL (9.4-12.4); Monocytes # (auto) 0.71 K/uL (0.11-0.59); Monocytes % (auto) 7.4 %; Neutrophils # (auto) 7.63 K/uL (1.40-6.50); Neutrophils % (auto) 79.1 %; Platelet Count 319 K/uL (130-400); RDW Coefficient of Variation 16.3 % (11.5-14.5); RDW Standard Deviation 53.2 fL (36.4-46.3); Red Blood Count 3.65 M/uL (4.70-6.10); White Blood Count 9.64 K/ul (4.8-10.8)
[2024-09-13 05:42] LABS: Calcium 8.4 mg/dl (8.6-10.3); Magnesium 1.6 mg/dl (1.7-2.4); Potassium 4.3 mmol/L (3.5-5.1)
[2024-09-13 05:48] LABS: BUN Creatinine Ratio 25.3 (10-20); Phosphorus 3.6 mg/dl (2.5-4.9)
[2024-09-13] MEDS: MAGNESIUM SULFATE / D5W 1 GM/100 ML BAG IV SCH (05:54)
[2024-09-13] MEDS: LEVOTHYROXINE SODIUM 88 MCG TABLET PO SCH (05:54)
--- NOTE | 2024-09-13 07:06 | XRay Report ---
XR chest 1V portable HISTORY: 74 years-old Male Resp failure acute respiratory failure COMPARISON: 09/12/2024 TECHNIQUE: AP view the chest FINDINGS: Cardiomediastinal and hilar silhouettes are within normal limits. Spondylotic spurring of the spine. No pneumothorax, pleural effusion or airspace consolidation. Partially imaged area of hardware of the right humerus. Left axillary surgical clips. IMPRESSION: No acute process. ACT 112: Negative or not required by law. The above report was generated using voice recognition software. It may contain grammatical, syntax o r spelling errors. Electronically signed by: Shan Reed M.D. 09/13/2024 7:05 AM
--- NOTE | 2024-09-13 07:57 | Electrocardiogram Report ---
Test Reason : Blood Pressure : */* mmHG Vent. Rate : 109 BPM Atrial Rate : 109 BPM P-R Int : 200 ms QRS Dur : 112 ms QT Int : 338 ms P-R-T Axes : 31 -61 92 degrees QTcB Int : 455 ms Sinus tachycardia Left anterior fascicular block Diffuse Minor Nonspecific ST and T wave abnormality Abnormal ECG When compared with ECG of 29-Aug-2024 14:00, No significant change was found Confirmed by Salbador Salgado ([id number]) on 09/13/2024 7:56:46 AM Referred By: Fausto Pantoja Confirmed By: Salbador Salgado
[2024-09-13] MEDS: SIMVASTATIN 40 MG TAB PO SCH (08:04)
[2024-09-13] MEDS: CALCITRIOL 0.25 MCG CAPSULE PO SCH (08:04)
[2024-09-13] MEDS: LANTUS PER UNIT CHARGE SQ SCH ×2 (08:11→20:31)
--- NOTE | 2024-09-13 08:35 | Critical Care Progress Note ---
Date of Service September 13, 2024 Assessment & Plan (1) Acute hypoxemic respiratory failure: Plan: Reason Critically Ill: 74-year-old male with DM type II, HLD, TIA, depression, history of pancreatitis and recent admission with cholangitis in which he underwent ERCP at [facility], now presents to the ICU following ORIF of right shoulder, in which the patient became significantly hypoxic postprocedure and currently requiring CPAP with high FiO2 requirement. Recommendations: Neuro -no current issues Cardiac -echo with bubble performed this morning. No other issues. Respiratory -postoperative hypoxemic respiratory failure. Appears consistent with shunt physiology or severe VQ mismatch given favorable response to CPAP. This morning down to 6 L nasal cannula. Imaging unremarkable. Given temporal relation to surgery, consideration for fat embolus or other potential embolic events related to surgery is possible however no significant findings on imaging and care would be supportive. This point time would continue to wean oxygen as tolerated. Will follow-up on echo with bubble to see whether or not there is a fcewf-[id number]-mbdu shunt noted. Prior echocardiogram performed in April showed no significant abnormality but the study was not performed as a bubble study. GI -okay to advance diet as tolerated RENAL/LYTES -no current issues -no issues ENDO - glycemic control per protocol. Continue Synthroid HEME - H&H stable, monitor routine CBC Ortho Status post ORIF right shoulder. Management per surgical team ID -no indication for infectious etiologies. LINES/IV ACCESS - Peripheral IVs DVT PROPHYLAXIS - SCDs, Defer anticoagulation to surgery service Patient appears to be clinically improved. Unclear etiology for the patient's episode last evening however it appears to have resolved without sequelae. Okay to transfer out of the ICU to the floor. Critical care services will sign off. Feel free to contact us with questions or concerns (2) Fracture of proximal end of right humerus: (3) Acute cholangitis: Admission and Anticipated Discharge Date Admission Date: September 12, 2024 Subjective Patient seen and examined. EMR reviewed. Discussed with bedside critical care nurse as well as with patient at bedside and reviewed on multidisciplinary rounds. Patient reports slight shortness of breath but overall feels much better. He is not coughing or wheezing. No chest pain or palpitations. No significant lower extremity edema. He denies nausea or vomiting. No melena hematochezia or armen temesis. No skin rashes or lesions. No significant tobacco intake history. No significant alcohol intake history or history of cirrhosis. Review of Systems Review of Systems: All systems reviewed & are unremarkable except as noted in Subjective Physical Exam Constitutional: WD/WN, vitals as above Neck: trachea midline, no thyromegaly Respiratory: normal respiratory effort, lungs clear to auscultation Cardiovascular: RRR, no murmur, no edema Gastrointestinal (Abdomen): normal bowel sounds, soft, nontender, no hepat osplenomegaly Musculoskeletal: Right shoulder dressing intact with patient in sling Skin: no rashes, warm and dry Neurologic: Nonfocal exam Lymphatic: no cervical lymphadenopathy Results & Data Results & Data Vital Signs (Past 12 Hours) Vital Signs Temp Pulse Pulse Resp BP Pulse Ox Pulse Ox 09/13/24 08:28 36.7 C 09/13/24 08:25 09/13/24 08:00 70 13 98 09/13/24 08:00 126/79 09/13/24 07:21 66 18 98 09/13/24 07:12 66 18 100 09/13/24 07:00 127/80 09/13/24 06:36 63 17 99 09/13/24 06:03 68 15 99 09/13/24 06:00 127/84 09/13/24 06:00 127/84 09/13/24 05:09 36.6 C 67 17 96 09/13/24 05:00 121/80 09/13/24 04:39 68 18 100 09/13/24 04:06 71 20 96 09/13/24 04:00 104/80 09/13/24 04:00 104/80 09/13/24 03:57 76 24 99 09/13/24 03:06 69 3 L 99 09/13/24 03:00 115/77 09/13/24 02:57 77 8 L 94 09/13/24 02:06 78 27 H 92 09/13/24 02:00 125/81 09/13/24 02:00 83 18 96 09/13/24 01:51 80 2 L 96 09/13/24 01:03 80 7 L 94 09/13/24 01:00 119/80 09/13/24 01:00 119/80 09/13/24 00:54 79 7 L 94 09/13/24 00:18 85 09/13/24 00:10 36.4 C L 09/13/24 00:00 83 25 H 94 09/12/24 23:00 114/76 09/12/24 23:00 114/76 09/12/24 22:57 89 26 H 94 09/12/24 22:43 97 09/12/24 22:39 92 H 18 94 09/12/24 22:00 115/84 09/12/24 21:12 98 O2 Del Method O2 Del Method O2 Flow Rate O2 Flow Rate FiO2 09/13/24 08:28 09/13/24 08:25 Nasal Cannula 6 09/13/24 08:00 Nasal Cannula 6 09/13/24 08:00 09/13/24 07:21 09/13/24 07:12 Nasal Cannula 8 09/13/24 07:00 09/13/24 06:36 09/13/24 06:03 09/13/24 06:00 09/13/24 06:00 09/13/24 05:09 09/13/24 05:00 09/13/24 04:39 High Flow Nasal Cannula 40 40 09/13/24 04:06 09/13/24 04:00 09/13/24 04:00 09/13/24 03:57 09/13/24 03:06 09/13/24 03:00 09/13/24 02:57 09/13/24 02:06 09/13/24 02:00 09/13/24 02:00 High Flow Nasal Cannula 50 45 09/13/24 01:51 09/13/24 01:03 09/13/24 01:00 09/13/24 01:00 09/13/24 00:54 09/13/24 00:18 09/13/24 00:10 09/13/24 00:00 09/12/24 23:00 09/12/24 23:00 09/12/24 22:57 09/12/24 22:43 Free Flow/Blow-by 50 09/12/24 22:39 High Flow Nasal Cannula 60 50 09/12/24 22:00 09/12/24 21:12 BiPAP 50 Critical Care Results & Data Vital Signs (Past 12 Hours) Vital Signs Temp Pulse Pulse Resp BP Pulse Ox Pulse Ox 09/13/24 08:28 36.7 C 09/13/24 08:25 09/13/24 08:00 70 13 98 09/13/24 08:00 126/79 09/13/24 07:21 66 18 98 09/13/24 07:12 66 18 100 09/13/24 07:00 127/80 09/13/24 06:36 63 17 99 09/13/24 06:03 68 15 99 09/13/24 06:00 127/84 09/13/24 06:00 127/84 09/13/24 05:09 36.6 C 67 17 96 09/13/24 05:00 121/80 09/13/24 04:39 68 18 100 09/13/24 04:06 71 20 96 09/13/24 04:00 104/80 09/13/24 04:00 104/80 09/13/24 03:57 76 24 99 09/13/24 03:06 69 3 L 99 09/13/24 03:00 115/77 09/13/24 02:57 77 8 L 94 09/13/24 02:06 78 27 H 92 09/13/24 02:00 125/81 09/13/24 02:00 83 18 96 09/13/24 01:51 80 2 L 96 09/13/24 01:03 80 7 L 94 09/13/24 01:00 119/80 09/13/24 01:00 119/80 09/13/24 00:54 79 7 L 94 09/13/24 00:18 85 09/13/24 00:10 36.4 C L 09/13/24 00:00 83 25 H 94 09/12/24 23:00 114/76 09/12/24 23:00 114/76 09/12/24 22:57 89 26 H 94 09/12/24 22:43 97 09/12/24 22:39 92 H 18 94 09/12/24 22:00 115/84 09/12/24 21:12 98 O2 Del Method O2 Del Method O2 Flow Rate O2 Flow Rate FiO2 09/13/24 08:28 09/13/24 08:25 Nasal Cannula 6 09/13/24 08:00 Nasal Cannula 6 09/13/24 08:00 09/13/24 07:21 09/13/24 07:12 Nasal Cannula 8 09/13/24 07:00 09/13/24 06:36 09/13/24 06:03 09/13/24 06:00 09/13/24 06:00 09/13/24 05:09 09/13/24 05:00 09/13/24 04:39 High Flow Nasal Cannula 40 40 09/13/24 04:06 09/13/24 04:00 09/13/24 04:00 09/13/24 03:57 09/13/24 03:06 09/13/24 03:00 09/13/24 02:57 09/13/24 02:06 09/13/24 02:00 09/13/24 02:00 High Flow Nasal Cannula 50 45 09/13/24 01:51 09/13/24 01:03 09/13/24 01:00 09/13/24 01:00 09/13/24 00:54 09/13/24 00:18 09/13/24 00:10 09/13/24 00:00 09/12/24 23:00 09/12/24 23:00 09/12/24 22:57 09/12/24 22:43 Free Flow/Blow-by 50 09/12/24 22:39 High Flow Nasal Cannula 60 50 09/12/24 22:00 09/12/24 21:12 BiPAP 50 Lab & Micro Results (Past 24 Hours) RBC 3.65 M/uL (4.70-6.10) L 09/13/24 WBC 9.64 K/ul (4.8-10.8) 09/13/24 Hgb 10.7 g/dl (14.0-18.0) L 09/13/24 Hct 33.0 % (42.0-52.0) L 09/13/24 MCV 90.4 fL (80.0-100.0) 09/13/24 MCH 29.3 pg (25.0-34.0) 09/13/24 MCHC 32.4 g/dL (32.0-36.0) 09/13/24 RDW Standard Deviation 53.2 fL (36.4-46.3) H 09/13/24 RDW Coefficient of Variation 16.3 % (11.5-14.5) H 09/13/24 Plt Count 319 K/uL (130-400) 09/13/24 MPV 9.8 fL (9.4-12.4) 09/13/24 Neutrophils (%) (Auto) 79.1 % 09/13/24 Lymphocytes (%) (Auto) 12.8 % 09/13/24 Monocytes # (Auto) 0.71 K/uL (0.11-0.59) H 09/13/24 Eosinophils # (Auto) 0.01 K/uL (0.00-0.50) 09/13/24 Immature Granulocyte % (Auto) 0.4 % 09/13/24 Neutrophils # (Auto) 7.63 K/uL (1.40-6.50) H 09/13/24 Lymphocytes # (Auto) 1.23 K/uL (1.20-3.40) 09/13/24 Monocytes # (Auto) 0.71 K/uL (0.11-0.59) H 09/13/24 Eosinophils # (Auto) 0.01 K/uL (0.00-0.50) 09/13/24 Basophils # (Auto) 0.02 K/uL (0.00-0.20) 09/13/24 Immature Granulocyte # (Auto) 0.04 K/uL (0.01-0.20) 4 Tear Drop Cells 1+ 09/12/24 Na 139 mmol/L (136-145) 09/13/24 K 4.3 mmol/L (3.5-5.1) 09/13/24 Cl 107 mmol/L (98-107) 09/13/24 CO2 23 mmol/L (21-32) 09/13/24 Anion Gap 9 (3-11) 09/13/24 BUN 20 mg/dl (6-23) 09/13/24 Creatinine 0.79 mg/dl (0.6-1.4) 09/13/24 BUN/Creatinine Ratio 25.3 (10-20) H 09/13/24 Glu 197 mg/dl (70-99(Fasting)) H 09/13/24 Ca 8.4 mg/dl (8.6-10.3) L 09/13/24 Phosphorus Level 3.6 mg/dl (2.5-4.9) 09/13/24 Total Bilirubin 1.1 mg/dl (0.2-1.0) H 09/12/24 AST 16 U/L (13-39) 09/12/24 ALT 25 U/L (7-52) 09/12/24 Alkaline Phosphatase 98 U/L (34-104) 09/12/24 TP 6.8 gm/dl (6.0-8.3) 09/12/24 Albumin 4.0 gm/dl (3.4-5.0) 09/12/24 Globulin 2.8 gm/dl (2.5-4.0) 09/12/24 Albumin/Globulin Ratio 1.4 (0.9-2) 09/12/24 Mg 1.6 mg/dl (1.7-2.4) L 09/13/24 04:54 Calcium Level 8.4 mg/dl (8.6-10.3) L 09/13/24 04:54 Prothromb Time International Ratio 1.0 (0.9-1.1) 09/12/24 17:2 1 Donnell Test Pass 09/12/24 22:38 Diagnostic Findings (Past 24 Hours) Humerus X-Ray 09/12/24 13:00 FL humerus RT 2V CLINICAL HISTORY: RIGHT PROXIMAL HUMERUS TECHNIQUE: 2 views were obtained with the C-arm in the OR with the above procedure. Total fluoroscopy time was 27.4 seconds. Radiation dose was 1.99 mGy. Comparison: Comparison is made to shoulder radiograph 09/08/2024 FINDINGS/IMPRESSION: Intraoperative images were obtained of open reduction internal fixation of the humeral fracture. Please correlate with intraoperative fluoroscopy and operative report. ACT 112: Negative or not required by law. Electronically signed by: Humphrey Paiz M.D. 09/12/2024 4:44 PM Shoulder X-Ray 09/12/24 15:22 XR shoulder RT min 2V routine HISTORY: 74 years-old Male Post shoulder surgery acute fracture of the right proximal humerus COMPARISON: 09/08/2024 TECHNIQUE: 2 views of the right humerus FINDINGS: Acute proximal right humerus fracture redemonstrated. Status post placement of lateral plate and screw fusion with overlying skin linda, expected postoperative soft tissue swelling with deep tissue air. There is improved near anatomic alignment. Proximal humeral cortical irregularity redemonstrated medially. No dislocation. IMPRESSION: Improved alignment of the acute right proximal humeral fracture status post ORIF. ACT 112: Negative or not required by law. The above report was generated using voice recognition software. It may contain grammatical, syntax or spelling errors. Electronically signed by: Shan Reed M.D. 09/12/2024 3:50 PM Chest X-Ray 09/12/24 16:56 XR chest 1V portable CLINICAL HISTORY: hypoxia TECHNIQUE: Single frontal radiograph of the chest was obtained. Comparison: Comparison is made to chest radiograph 08/29/2024 FINDINGS: Postoperative changes are seen in the right shoulder. Calcified aortic knob is seen. The lungs are clear. No evidence of pleural effusion or pneumothorax. IMPRESSION: No acute abnormalities and in particular no radiographic evidence of pneumonia. ACT 112: Negative or not required by law. Electronically signed by: Humphrey Paiz M.D. 09/12/2024 5:16 PM Chest CTA 09/12/24 17:22 CT angio chest PE protocol CLINICAL HISTORY: PE TECHNIQUE: Multidetector row helical CT of the chest was performed with angiographic protocol. Coronal and sagittal reformations were obtained. Coronal and sagittal MIPS were obtained from the axial data set and were submitted for review. Automated dose lowering techniques and/or adjustment according to patient size were utilized for this exam. CT DOSE: 934.5 mGy.cm Comparison: CT chest 08/29/2024 FINDINGS: Lungs and pleura: 4 mm nodule in the left lower lobe (series 4 image 68), 4 mm pleural-based nodule in the right middle lobe (image 94), and 3 mm nodule in the right lower lobe (image 100). Heart and pericardium: Heart size is normal. No pericardial effusion. Vessels: No evidence of pulmonary embolism. Mediastinum and jojo: Unremarkable. Chest wall and lower neck: Postsurgical changes about the right humeral fracture again noted. Abdomen: Partial visualization of a biliary stent. There is a small hiatal hernia. Bones: Degenerative changes in the thoracic spine. IMPRESSION: 1. No acute abnormality and in particular no evidence of pulmonary embolus. 2. Stable pulmonary nodules as above. ACT 112: Negative or not required by law. Electronically signed by: Humphrey Paiz M.D. 09/12/2024 6:10 PM Chest X-Ray 09/13/24 07:00 XR chest 1V portable HISTORY: 74 years-old Male Resp failure acute respiratory failure COMPARISON: 09/12/2024 TECHNIQUE: AP view the chest FINDINGS: Cardiomediastinal and hilar silhouettes are within normal limits. Spondylotic spurring of the spine. No pneumothorax, pleural effusion or airspace consolidation. Partially imaged area of hardware of the right humerus. Left axillary surgical clips. IMPRESSION: No acute process. ACT 112: Negative or not required by law. The above report was generated using voice recognition software. It may contain grammatical, syntax or spelling errors. Electronically signed by: Shan Reed M.D. 09/13/2024 7:05 AM I & O Totals 24 Hours 09/12/24 09/13/24 09/14/24 06:59 06:59 06:59 Intake Total 1050 / 1050 90.833 / 90.833 Output Total 650 / 650 Balance 400 / 400 90.833 / 90.833 Cumulative 09/11/24 15:49 thru 09/13/24 07:43 Intake Total 1140.833 Output Total 650 Balance 490.833 RT Ventilator Mngmt (Last Documented) Ventilator Ordered Settings Respiratory Rate 13 09/13/24 08:00 Fraction of Inspired Oxygen 40 09/13/24 04:39 Ventilator - PT Measurements Respiratory Rate 13 Coding Level of Care Code 79544 SUB INP/OBS CARE 3/50MIN Diagnoses Acute hypoxemic respiratory failure J96.01 Fracture of proximal end of right humerus S42.291A Encounter type: initial encounter Fracture alignment: displaced Fracture morphology: other fracture Fracture type: closed Acute cholangitis K83.09 (2) Fracture of proximal end of right humerus Encounter type: initial encounter Fracture alignment: displaced Fracture morphology: other fracture Fracture type: closed Qualified Code(s): S42.291A - Other displaced fracture of upper end of right humerus, initial encounter for closed fracture
[2024-09-13 11:29] LABS: iSTAT Arterial Blood Gas pCO2 31 mmHg (35-46); iSTAT Arterial Blood Gas pH 7.42 (7.35-7.45); iSTAT Arterial Blood Gas pO2 53 mmHg (80-95)
[2024-09-13 11:29] LABS: iSTAT Arterial Blood Gas pCO2 20 mmHg (35-46); iSTAT Arterial Blood Gas pH 7.54 (7.35-7.45); iSTAT Arterial Blood Gas pO2 58 mmHg (80-95)
[2024-09-13 11:31] LABS: iSTAT Arterial Blood Gas pCO2 21 mmHg (35-46); iSTAT Arterial Blood Gas pH 7.56 (7.35-7.45); iSTAT Arterial Blood Gas pO2 96 mmHg (80-95)
--- NOTE | 2024-09-13 12:13 | Pharmacy Report ---
Pharmacy Glycemic Short Note 2 - Date of Service September 13, 2024 - Glycemic Short BSG Results (Last 24 hours): 09/12/24 09/12/24 09/12/24 11:59 12:50 15:27 Glucose POC Glucose 183 H 182 H 196 H 09/12/24 09/12/24 09/12/24 17:21 18:22 20:04 Glucose 259 H POC Glucose 296 H 311 H* 09/12/24 09/13/24 09/13/24 23:46 03:57 04:54 Glucose 197 H POC Glucose 258 H 200 H 09/13/24 09/13/24 08:03 11:22 Glucose POC Glucose 174 H 231 H OUTPATIENT ANTIDIABETIC REGIMEN: * Metformin 1g BID * A1c: 8.8% 08-30-24 ASSESSMENT: * Patient presented to the ICU following ORIF of right shoulder after which the patient experienced post op hypoxia. * BSGs yesterday were [phone] mg/dL. Patient likely experiencing stress induced hyperglycemia from hypoxic event and was likely given IV dexamethasone perioperatively. * Patient received a total of 18 units insulin yesterday, 8 of which was basal. BSGs today are [phone] mg/dL. * Patient's diet was advanced after AM NovoLog administration. Thus carbs from that meal were not covered and lunchtime BSG (231 mg/dL) likely falsely elevated. PLAN FOR INPATIENT GLYCEMIC CONTROL: * Hold outpatient oral diabetes medications * Basal insulin * Lantus 10 units SQ this morning * Lantus 0 vs 7 based on BSG- See MAR for details * Bolus insulin * NovoLog per scale ACHS or Q6hrs while NPO * Goal Range: Low 110 mg/dL - High 140 mg/dL * Correction Factor: 20 mg/dL/unit, change to 25 mg/dL/unit at dinner * Nutritional / Prandial insulin per carb ratio of 1 unit per 7 grams CHO consumed (change to 9 grams CHO consumed with dinner)
--- NOTE | 2024-09-13 12:13 | XCELERA ---
[id number]
--- NOTE | 2024-09-13 14:43 | Orthopedic Progress Note ---
Date of Service September 13, 2024 Assessment & Plan (1) Fracture of proximal end of right humerus: Overall he is doing well with his fracture but he is currently on 6 L of oxygen by nasal cannula due to acute postoperative respiratory failure. He has been followed by the evaporator operator and the hospitalist for that. We will certainly keep him overnight tonight. If his symptoms continue to improve and he can be weaned off the oxygen then will likely discharge him to home tomorrow. Hugo Hare was seen and examined at bedside this morning. Overall he seems to be doing a little bit better. He is on 6 L of oxygen. He is not having too much pain in the shoulder. He is wearing his sling as instructed. He has no other complaints.. Review of Systems All systems reviewed & are unremarkable except as noted in HPI & below. Physical Exam On physical examination of right shoulder, the dressing is clean and dry. He is wearing his sling as instructed. He has flexion of his fingers but he does not have extension yet.. Results & Data Results & Data Laboratory Results . Diagnostic Findings . PG Care Time/CCT Total # of Minutes Spent Total Time Spent with Patient: Total time spent is greater than 50% in coordination of care (as documented) at patient's floor/unit and/or counseling patient: Coding Level of Care Code 82016 Post Operative Follow-Up Diagnoses Fracture of proximal end of right humerus S42.291A Encounter type: initial encounter Fracture alignment: displaced Fracture morphology: other fracture Fracture type: closed (1) Fracture of proximal end of right humerus Encounter type: initial encounter Fracture alignment: displaced Fracture morphology: other fracture Fracture type: closed Qualified Code(s): S42.291A - Other displaced fracture of upper end of right humerus, initial encounter for closed fracture
[2024-09-14] MEDS: ACETAMINOPHEN 500 MG TAB PO PRN (00:39)
[2024-09-14 06:59] LABS: Magnesium 1.7 mg/dl (1.7-2.4); Phosphorus 3.8 mg/dl (2.5-4.9)
[2024-09-14 07:28] VITALS: BP 121/69; RESP 19; TEMP 97.5; O2SAT 97
--- NOTE | 2024-09-14 08:00 | Hospitalist Progress Note ---
Date of Service September 13, 2024 Assessment & Plan (1) Hypoxemia: Plan: Acute - Etiology uncertain, thus far CXR neg for PTX, PNA, pvc/pulmonary edema - Bedside ultrasound performed by attending w/o obvious occlusive DVTs of bilateral LE - Obtain stat CTA chest to r/o PE, ordered - Basic labs ordered including cbc, cmp, coags, poc abg, with reported paO2 of 50 - Refractory to 10L of supplemental O2, CPAP applied by RT PACU - Patient transferred to ICU on 09/12 Now iwll transfer to PCU as patient's bbreathing has stabilized. O2 saturation is adequate on 6 liters nasal cannula, will monitor. will resume plavix. (2) Fracture of proximal end of right humerus: Plan: S/p ORIF by Dr. Pantoja - management per primary service including pain control, therapy consult, NWB to RUE (3) Acute hypoxemic respiratory failure: Plan chronic/stable medical problems: - HLD - continue simvastatin - BPH - continue tamsulosin - DMT2 - diabetic diet ordered, hold metformin, a1c 8.8% in 08/2024, added accuchecks ac and hs and lantus 8u BID and lispro with CF 50 and CR 16 - Hypothyroidism - continue levothyroxine. Defer chemoppx for now until results of CTA available for review. If no evidence of acute PE, recommend Lovenox 40mg sq daily but ultimately at discretion of primary service. AM labs have been ordered. Thank you for allowing us to participate in the care of your patient, will follow along. Above plan of care has been established in collaboration with Dr. Bazan who has also seen and evaluated this patient. Further orders will be recommended as clinically warranted. Admission and Anticipated Discharge Date Admission Date: September 12, 2024 Subjective 74 yo male reports feeling much better. His breathing has improved. Physical Exam Physical Exam: GENERAL: 74 yo well-nourished elderly WM. NAD. EYES: EOMI. PERRLA. Anicteric. HENT: Moist mucous membranes. No cervical lymphadenopathy. LUNGS: Clear to auscultation bilaterally. No accessory muscle use. No W/R/R. CARDIOVASCULAR: S1 S2 tachycardic. No M/G/R. No JVD. ABDOMEN: Soft, non-tender and non-distended. EXTREMITIES: No edema. Non-tender. Peripheral pulses +2/4. NEUROLOGIC: A&O x3. No focal neurological deficits. CN II-XII grossly intact. Results & Data Results & Data Vital Signs (Past 12 Hours) Vital Signs Temp Pulse Pulse Resp BP Pulse Ox O2 Del Method 09/14/24 07:39 65 09/14/24 07:27 36.4 C L 64 19 121/69 97 Room Air 09/14/24 03:19 36.7 C 64 18 119/76 95 Room Air 09/14/24 00:00 36.7 C 69 18 129/75 96 Room Air 09/13/24 21:51 68 PG Care Time/CCT Total # of Minutes Spent Total Time Spent with Patient: Total time spent is greater than 50% in coordination of care (as documented) at patient's floor/unit and/or counseling patient: Coding Level of Care Code 28218 SUB INP/OBS CARE 2/35MIN Diagnoses Hypoxemia R09.02 Fracture of proximal end of right humerus S42.291A Encounter type: initial encounter Fracture alignment: displaced Fracture morphology: other fracture Fracture type: closed Acute hypoxemic respiratory failure J96.01 (2) Fracture of proximal end of right humerus Encounter type: initial encounter Fracture alignment: displaced Fracture morphology: other fracture Fracture type: closed Qualified Code(s): S42.291A - Other displaced fracture of upper end of right humerus, initial encounter for closed fracture
[2024-09-14] MEDS: CLOPIDOGREL BISULFATE 75 MG TAB PO SCH (08:59)
[2024-09-14 10:42] VITALS: PULSE 64
--- NOTE | 2024-09-15 11:42 | Hospitalist Progress Note ---
Date of Service September 14, 2024 Assessment & Plan (1) Hypoxemia: Plan: Acute - Etiology uncertain, thus far CXR neg for PTX, PNA, pvc/pulmonary edema - Bedside ultrasound performed by attending w/o obvious occlusive DVTs of bilateral LE - Obtain stat CTA chest to r/o PE, ordered - Basic labs ordered including cbc, cmp, coags, poc abg, with reported paO2 of 50 - Refractory to 10L of supplemental O2, CPAP applied by RT PACU - Patient transferred to ICU on 09/12 Now he is in PCU. Patient is now on room air. Patient can be discharged. Defer discharge plan to primary service. resumed plavix. (2) Fracture of proximal end of right humerus: Plan: S/p ORIF by Dr. Pantoja - management per primary service including pain control, therapy consult, NWB to RUE (3) Acute hypoxemic respiratory failure: Plan chronic/stable medical problems: - HLD - continue simvastatin - BPH - continue tamsulosin - DMT2 - diabetic diet ordered, hold metformin, a1c 8.8% in 08/2024, added accuchecks ac and hs and lantus 8u BID and lispro with CF 50 and CR 16 - Hypothyroidism - continue levothyroxine. Defer chemoppx for now until results of CTA available for review. If no evidence of acute PE, recommend Lovenox 40mg sq daily but ultimately at discretion of primary service. AM labs have been ordered. Thank you for allowing us to participate in the care of your patient, will follow along. Above plan of care has been established in collaboration with Dr. Bazan who has also seen and evaluated this patient. Further orders will be recommended as clinically war ranted. Admission and Anticipated Discharge Date Admission Date: September 12, 2024 Subjective 74 yo male reports feeling BACK TO HIS BASELINE IN REGARDS TO HIS BREATHING. Asking to be discharged, Physical Exam Physical Exam: GENERAL: 74 yo well-nourished elderly WM. NAD. EYES: EOMI. PERRLA. Anicteric. HENT: Moist mucous membranes. No cervical lymphadenopathy. LUNGS: Clear to auscultation bilaterally. No accessory muscle use. No W/R/R. CARDIOVASCULAR: S1 S2 tachycardic. No M/G/R. No JVD. ABDOMEN: Soft, non-tender and non-distended. EXTREMITIES: No edema. Non-tender. Peripheral pulses +2/4. NEUROLOGIC: A&O x3. No focal neurological deficits. CN II-XII grossly intact. PG Care Time/CCT Total # of Minutes Spent Total Time Spent with Patient: Total time spent is greater than 50% in coordination of care (as documented) at patient's floor/unit and/or counseling patient: Coding Level of Care Code 09420 SUB INP/OBS CARE 2/35MIN Diagnoses Hypoxemia R09.02 Fracture of proximal end of right humerus S42.291A Encounter type: initial encounter Fracture alignment: displaced Fracture morphology: other fracture Fracture type: closed Acute hypoxemic respiratory failure J96.01 (2) Fracture of proximal end of right humerus Encounter type: initial encounter Fracture alignment: displaced Fracture morphology: other fracture Fracture type: closed Qualified Code(s): S42.291A - Other displaced fracture of upper end of right humerus, initial encounter for closed fracture
== END 2024-09-14 11:49 | disposition home or self-care (01) ==
LOC: 2S 11:26 → ASU 11:26 → 1E 19:06 → 4W 09-13 18:15

== ENCOUNTER 2025-02-01 12:44 | Inpatient (IN) ==
--- OUTSIDE RECORDS SUMMARY | 2025-02-01 12:52 | External Medical Summary | Continuity of Care Document ---
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 Name Role Phone Juanita Morgan Primary Care Physician [phone] Rashmi Pool Unavailable Unavailable Lana Lock Unavailable Unavailable [id number] Date(s): 01/29/25 - 01/29/25 [facility] [address], [address] [place] [address] [phone] Encounter Diagnosis Cholangitis(Discharge Diagnosis) - 01/29/25 Dyspnea(Discharge Diagnosis) - 01/30/25 Closed right humeral fracture(Discharge Diagnosis) - 01/29/25 Type 2 diabetes, HbA1C goal < 8%(Discharge Diagnosis) - 01/29/25 Hypomagnesemia(Discharge Diagnosis) - 01/29/25 Aneurysm of right popliteal artery(Discharge Diagnosis) - 01/29/25 Elderly person living alone(Discharge Diagnosis) - 01/29/25 Major depressive disorder, recurrent, in full remission(Discharge Diagnosis) - 01/29/25 Episode of syncope(Discharge Diagnosis) - 01/29/25 AAA (abdominal aortic aneurysm)(Discharge Diagnosis) - 01/29/25 Discharge Disposition: Home or Self Care Attending Physician: MD Morgan Amy L Encounter Type: Clinic Allergies, Adverse Reactions, Alerts No Known Allergies Assessment and Plan Extracted from: Title:Office Visit Note Author:MD Morgan Amy L D ate:01/30/25 1.Cholangitis STATUS: Chronic, shouldresolvesincestent has been removed. DATA: hx, exam& surgical/GInotesfromHersheyreviewed. GOAL: avoid recurrence, ensure recovery. PLAN: stent wasremoved successfully,& all pathology was benign. [facility] notfeel that follow [facility] wasnecessary. He had been making uneventfulrecovery, butjust nowcoming intooffice,he mentionedRUQ pain to hisdaughter. She is, understandably, concernedabout this.He had apparentlynotcomplainedmuch about pain, evenwhenhe hadfull-blown cholangitis& was septic. His examis notconcerning foracute abdomen, but his daughter isconcerned&would like totake him toER. I agree&calledERto signptout.His daughter will transporthimto ER, & since heis awake, alert & hemodynamically stable, this was felt to be acceptable. 2.Dyspnea STATUS: newcomplaint,appearsstable from respiratory standpoint. DATA: hx,exam& hospitalist's note reviewed. GOAL: Maintain respiratorystability. PLAN: his pulse oxherewasnotedtobesomewhat decreased,however,our ability todo completeO2 desat studyislimited. Hislungsare clear& he ismanifestingno respiratorydistress,or complainingofany respiratory sx.If heisgoingtoER, as above,he will beevaluated, whichwillincludeCXR& likelyabdominalimaging. If felt necessary, [id number]. Of note,he hadsimilar problemswhilein hospitalafterORIFofhumeralfx. Extensivework upwas completedwithoutdefinitive causeidentified. Cont current monitoring. 3.Closed right humeral fracture STATUS: Chronic stable. DATA: hx, exam & hospitalist's notereviewed. GOAL:restorefunction. PLAN: hisdaughter isrequestingPT, whichwas ordered. However,he likelyalso needsorthofollowup,tamika. 4.Type 2 diabetes, HbA1C goal < 8% Status : chronic, controlled. Data : diet & glucometers reviewed. Goal : maintain normal blood sugars. Plan : get glucose& A1C. Continue same dose ofMetformin, pending labs. Of note, we are not aiming for tight control, given his co-morbidities & general level of frailty. 5.Hypomagnesemia Recheck Mg++. 6.AAA (abdominal aortic aneurysm) STATUS: Chronic stable. DATA: hx reviewed. GOAL: Maintain vascularstability. PLAN: he hasabdominal & peripheralDuplex studiesscheduledfor tomorrow, sowill,hopefully, be abletokeepthisappt.He shouldbe abletokeep vascularsurgeryappt, in few weeks, asscheduled. 7.Episode of syncope No recurrence. 8.Major depressive disorder, recurrent, in full remission Status : chronic, stable. Data : hx reviewed. Goal : maintain remission. Plan : need todiscusspossiblechangefromFluoxetine, giveninteractionwithClopidogrel. 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 DATA: hx reviewed. GOAL: Maintain vascularstability. PLAN: keep appt for vascularstudies tomorrow & forvascularsurgeryappt, in few weeks, asscheduled. 10.Elderly person living alone STATUS: Chronic stable. DATA: hxreviewed. GOAL: Maintain independentliving, if safe. PLAN: discussed withdaughterbriefly.His familyis nearby& provides lotsofsupport.Cont current monitoring. Return in 3-4 months. Time:Total time spent with this patient on day of evaluation including chart review, ordering, education and coordination of care elements: 43_ minutes Immunizations Given and Recorded Vaccine Date Status Refusal Reason pneumococcal 20-valent conjugate vaccine 05/01/23 Given influenza virus vaccine, inactivated 09/12/22 Give n Medications Alive Men's 50+ Complete Multivitamin Start: 11/22/24 1:22:00 PM EST Start Date: 11/22/24 Status: Ordered Repeat number: 1 aspirin 81 mg oral delayed release tablet Start: 12/06/22 11:13:00 AM EST, 1 tab, PO, Daily Start Date: 12/06/22 Status: Ordered Repeat number: 1 calcitriol 0.25 mcg oral capsule Start: 09/30/24 8:03:00 AM EST, 1 cap, PO, Daily, Disp# 90 cap, Refills: 3, Pharmacy: [facility] Start Date: 09/30/24 Status: Ordered Quantity: 90.0 Unit: cap Repeat number: 1 clopidogrel 75 mg oral tablet Start: 07/26/24 3:53:00 PM EDT, 1 tab, PO, Daily, Disp# 90 tab, Refills: 3, Pharmacy: [facility] Start Date: 07/26/24 Status: Ordered Quantity: 90.0 Unit: tab Repeat number: 1 FLUoxetine 40 mg oral capsule Start: 11/12/24 4:44:00 PM EST, 1 cap, PO, Daily, Disp# 90 cap, Refills: 1, Pharmacy: [facility] Start Date: 11/12/24 Status: Ordered Quantity: 90.0 Unit: cap Repeat number: 1 levothyroxine 88 mcg (0.088 mg) oral tablet Start: 10/31/24 11:03:00 AM EST, 1 tab, PO, Daily, Disp# 90 tab, Refills: 3, Pharmacy: [facility] Start Date: 10/31/24 Status: Ordered Quantity: 90.0 Unit: tab Repeat number: 1 magnesium oxide 400 mg (241.3 mg elemental magnesium) oral tablet Start: 12/09/22 3:06:00 PM EST, 1 tab, PO, bid, Disp# 180 tab, Refills: 3, [facility] Start Date: 12/09/22 Status: Ordered Quantity: 180.0 Unit: tab Repeat number: 4 metFORMIN 500 mg oral tablet Start: 03/04/24 9:14:00 AM EDT, 2 tab, PO, bid, Disp# 360 tab, Refills: 3, Pharmacy: [facility] Start Date: 03/04/24 Status: Ordered Quantity: 360.0 Unit: tab Repeat number: 1 One Touch Delica Plus (30G) Lancets Start: 04/19/23 8:52:00 PM EDT, See Instructions, Disp# 100 each, Refills: 3, test BID, Dx : E11.9, Pharmacy: [facility] Start Date: 04/19/23 Status: Ordered Quantity: 100.0 Unit: each Repeat number: 4 One Touch Verio Test Strips Start: 04/19/23 8:50:00 PM EDT, See Instructions, Disp# 100 each, Refills: 3, test BID, Dx E11.9, Pharmacy: [facility] Start Date: 04/19/23 Status: Ordered Quantity: 100.0 Unit: each Repeat number: 4 pantoprazole 40 mg oral delayed release tablet Start: 09/19/24 11:23:00 AM EDT, 1 tab, PO, Daily, Disp# 90 tab, Refills: 1, Pharmacy: [facility] Start Date: 09/19/24 Stop Date: 03/18/25 Status: Ordered Quantity: 90.0 Unit: tab Repeat number: 2 Probiotic Formula Start: 01/29/25 2:06:00 PM EST Start Date: 01/29/25 Status: Ordered Repeat number: 1 simvastatin 40 mg oral tablet Start: 04/29/24 9:28:00 AM EDT, 1 tab, PO, qhs, Disp# 90 tab, Refills: 3, Pharmacy: [facility] Start Date: 04/29/24 Status: Ordered Quantity: 90.0 Unit: tab Repeat number: 1 tamsulosin 0.4 mg oral capsule Start: 10/31/24 11:03:00 AM EST, 1 cap, PO, Daily, Disp# 90 cap, Refills: 3, Pharmacy: [facility] Start Date: 10/31/24 Status: Ordered Quantity: 90.0 Unit: cap Repeat number: 1 Vitamin C Start: 11/22/24 1:22:00 PM EST Start Date: 11/22/24 Status: Ordered Repeat number: 1 Mental Status 01/29/25 Barriers to Learning one year None evide nt Mandatory Health Literacy Documentation Yes Health Literacy Communication Barriers N ever Primary Language Lao Problem List Condition Confirmation Course Effective Dates Status H ealth Status Informant AAA (abdominal aortic aneurysm) Confirmed Active Accidental fall Confirmed Active Accidental fall Confirmed Active Acute pancreatitis Confirmed Active Ascending aortic aneurysm Confirmed Active 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 Peripheral artery aneurysm Confirmed Active 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 Cachexia Confirmed Active Closed right humeral fracture Confirmed Active Dysphagia Confirmed Active Erythema 1 Confirmed 10/22/24 Active Unspecified fracture of shaft of humerus, right arm, subsequent encounter for fracture with routine healing 2 Confirmed 10/22/24 Active Personal history of malignant melanoma Confirmed Active H/O dehydration Confirmed Active Personal history of other diseases of the respiratory system 3 Confirmed 10/22/24 Active History of CVA (cerebrovascular accident) Confirmed Active S/P laparoscopic cholecystectomy Confirmed Active History of malignant melanoma of skin Confirmed Active Hyperlipidemia Confirmed Active Hyperlipidemia Confirmed Active Hypomagnesemia Confirmed Active Hypomagnesemia Confirmed Active Lives alone Confirmed Active Elderly person living alone Confirmed Active Melanoma Confirmed Active Chewing tobacco nicotine dependence without complication Confirmed 10/22/24 Active Annual physical exam Confirmed Active Advanced directives, counseling/discussion Confirmed Active Sacral decubitus ulcer, stage II Confirmed Active Pancreatic pseudocyst Confirmed Active Major depressive disorder, recurrent, in full remission Confirmed Active Sepsis due to Escherichia coli Confirmed Active Episode of syncope Confirmed Active Tobacco user Confirmed Active Type 2 diabetes, HbA1C goal < 8% Confirmed Active Hernia, umbilical Confirmed Active 1Added per Crossing Tender Hmbiaj-WU-24/2/24 2Added per Crossing Tender Czuwbc-IF-30/2/24 3Added per Crossing Tender Aggnya-LU-77/2/24 Diagnosis Diagnosis Type Effective Dates Health Status Clinical Service Informant Episode of syncope Discharge Diagnosis 01/29/25 Non-Specified Hypomagnesemia Discharge Diagnosis 01/29/25 Non-Specified Cholangitis Discharge Diagnosis 01/29/25 Non-Specified Type 2 diabetes, HbA1C goal < 8% Discharge Diagnosis 01/29/25 Non-Specified AAA (abdominal aortic aneurysm) Discharge Diagnosis 01/29/25 Non-Specified Aneurysm of right popliteal artery Discharge Diagnosis 01/29/25 Non-Specified Elderly person living alone Discharge Diagnosis 01/29/25 Non-Specified Major depressive disorder, recurrent, in full remission Discharge Diagnosis 01/29/25 Non-Specified Closed right humeral fracture Discharge Diagnosis 01/29/25 Non-Specified Dyspnea Discharge Diagnosis 01/30/25 Non-Specified Procedures Procedure Date Related Diagnosis Body Site [...] of right popliteal artery aneurysm 06/29/18 Completed Arm fracture 8 Completed Computed tomography (CT) of abdomen and pelvis with contrast 9 Completed Computed tomography (CT) of head and neck [address] cervical spine without contrast 11 Completed Hemorrhoidectomy Complete d Repair of inguinal hernia Right Completed [address] [place] [place] [address] 3Choledocholithiasis was found. Complete removal was accomplished by biliary sphincteroptomy and balloon extraction. One plastic biliary stent was placed into the common bile duct. 4[facility] Impression: 1. No endoscopic esophageal abnormality to explain dysphagia. Esophagus dilated 2. Small hiatal hernia 3. Gastritis. Biopsied 4. Normal examined duodenum 5Pathology: Stomach, antrum biopsy: MIld chronic antritis is seen. Atrophy and intestinal metaplasiaare not seen. An immunohistochemical stain for the Helicobactor pylori organisms is negative. The clinical history of dysphagia is noted. 6central back 7excision of melanom mid back 8right arm-required plate and screws 2023 9CT A&P 07/29/22: FINDINGS: Lower chest: Cardiomegaly is [...] are seen. 3. Additional findings as above. 10CT Head w/o 07/29/22: Findings: Areas of decreased [...] intracranial hemorrhage, skull fractures, or scalp swelling. 11CT C-spine 07/29/22: FINDINGS: No acute fractures or subluxations are identified. Degenerative changes are seen in the visualized spine. The alignment is normal. Soft tissues are unremarkable. IMPRESSION: Degenerative changes without evidence of acute bony injury. Vital Signs Most recent to oldest [Reference Range]: 1 Patient Weight 78.8 kg (01/29/25 2:01 PM) Temperature [36.5-37.9 DegC] 36.6 DegC (01/29/25 2:01 PM) Heart Rate 96 bpm (01/29/25 2:01 PM) Respiratory Rate 24 br/min (01/29/25 2:01 PM) Blood Pressure 100/72mmHg (01/29/25 2:01 PM) Cuff Pulse Pressure 28 mmHg (01/29/25 2:01 PM) Social History Social History Type Response Tobacco Former smoker, Smoke less tobacco use: Smokeless tobacco user within last 30 days. Cigarettes 1 Smoking Status Never smoked cigaret martha Sex Male Sex Representation Male (finding) 1Chews 1 can of snuff q3 days for ~50+ years [facility] Outpt Note * MD Eddie, Juanita Fernandez: PERFORM Event Display: [facility] Outpt Note Authored Date: [id number] Chief Complaint Routine visit History of Present Illness * This patient is being followed longitudinally for chronic serious medical problems by Dr. Juanita Morgan. Their most recent visitwith Dr. Morgan:09/17/24. Here for recheckoffollowing concerns : 1) S/P removal of pancreatic stent for cholangitis - he had removal of stent at [facility]. This went well & surgeon told family that there were no complications. They did not advise any furtherfollow up. Just now if office, he mentioned to his daughter that he was having some pain in RUQ. He had not been complaining about this, until today,but it worries her. Overall, he has been doing pretty well. eating is increasing gradually. No fevers or belly pain until today. 2) Hx of syncope - no recent episodes of this. 3) R humeral fx - he had a fall ,when he was septic & had retained stone. For this reason, he never got PT. He can barely move his arm now. 4) SOB - he has complained of this today, which is not typical for him. His daughter wondered if he could get home oxygen. 5)AAA/PAD - hasfollow up scheduledwith vascular surgeryon 02/24/25. He will be having 3 vascular tests tomorrow. 6)Type 2 DM - he feels that his appetite remains somewhat poor,though ithasimprovedsomewhatsincehospital discharge. 7) Living alone - his daughter realized that this is somewhat tenuous. They placed cameras aroundhis home, so that if they don't reach him on his cell phone, they can see what he's doing. Her goes to his house everydayto check on him. Review of Systems Review of Systems- Constitutional: no fatigue, has lostweight. HEENT: no vision changes, or sinus congestion. Respiratory: no cough, +SOB, nowheezing. Cardiac: no chest pain, palpitations or pedal edema. GI: +abdominal pain, no vomiting or change in bowel habits. : no dysuria. Neurologic: no headaches. Musculoskeletal: No joint pains. Physical Exam Vitals & Measurements T:36.6C HR:96(Monitored) RR:24 BP:100/72 SpO2:88% WT:78.800kg(Dosing) WT:78.8kg PHQ2 Data(Data Documented on:01/29/2025 14:01) Emotional health assessment NEGATIVE PE : Alert, in NAD. HEENT - PERRL. Nares - clear. Oropharynx - normal. Neck - supple, without thyromegaly or lymphadenopathy. Lungs - slightly tachypneic with climbing up to exam table. Lungs areclear, withgood breath sounds bilaterally. Heart - RRR without murmur. No pedal edema. Abdomen - +BS, soft, subjectivelytenderRUQ withoutreboundor guarding,without HSM or mass. Neuro - alert & oriented, speech & cognition normal. Skin - warm & dry. Psych - affect appropriate. Assessment/Plan 1.Cholangitis STATUS: Chronic, shouldresolvesincestent has been removed. DATA: hx, exam& surgical/GInotesfromHersheyreviewed. GOAL: avoid recurrence, ensure recovery. PLAN: stent wasremoved successfully,& all pathology was benign. [facility] surgerydid notfeel that follow up wasnecessary. He had been making uneventfulrecovery, butjust nowcoming intooffice,he mentionedRUQ pain to hisdaughter. She is, understandably, concerne dabout this.He had apparentlynotcomplainedmuch about pain, evenwhenhe hadfull-blown cholangitis& was septic. His examis notconcerning foracute abdomen, but his daughter isconcerned&would like totake him toER. I agree&calledERto signptout.His daughter will transporthimto ER, & since heis awake, alert & hemodynamically stable, this was felt to be acceptable. 2.Dyspnea STATUS: newcomplaint,appearsstable from respiratory standpoint. DATA: hx,exam& hospitalist's note reviewed. GOAL: Maintain respiratorystability. PLAN: his pulse oxherewasnotedtobesomewhat decreased,however,our ability todo completeO2 desat studyislimited. Hislungsare clear& he ismanifestingno respiratorydistress,or complainingofany respiratory sx.If heisgoingtoER, as above,he will beevaluated, whichwillincludeCXR& likelyabdominalimaging. If felt necessary, [id number]. Of note,he hadsimilar problemswhilein hospitalafterORIFofhumeralfx. Extensivework upwas completedwithoutdefinitive causeidentified. Cont current monitoring. 3.Closed right humeral fracture STATUS: Chronic stable. DATA: hx, exam & hospitalist's notereviewed. GOAL:restorefunction. PLAN: hisdaughter isrequestingPT, whichwas ordered. However,he likelyalso needstamika tom. 4.Type 2 diabetes, HbA1C goal < 8% Status : chronic, controlled. Data : diet & glucometers reviewed. Goal : maintain normal blood sugars. Plan : get glucose& A1C. Continue same dose ofMetformin, pending labs. Of note, we are not aiming for tight control, given his co-morbidities & general level of frailty. 5.Hypomagnesemia Recheck Mg++. 6.AAA (abdominal aortic aneurysm) STATUS: Chronic stable. DATA: hx reviewed. GOAL: Maintain vascularstability. PLAN: he hasabdominal & peripheralDuplex studiesscheduledfor tomorrow, sowill,hopefully, be abletokeepthisappt.He shouldbe abletokeep vascularsurgeryappt, in fewweeks, asscheduled. 7.Episode of syncope No recurrence. 8.Major depressive disorder, recurrent, in full remission Status : chronic, stable. Data : hx reviewed. Goal : maintain remission. Plan : need todiscusspossiblechangefromFluoxetine, giveninteractionwithClopidogrel. 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 DATA: hx reviewed. GOAL: Maintain vascularstability. PLAN: keep appt for vascularstudies tomorrow & forvascularsurgeryappt, in few weeks, asscheduled. 10.Elderly person living alone STATUS: Chronic stable. DATA: hxreviewed. GOAL: Maintain independentliving, if safe. PLAN: discussed withdaughterbriefly.His familyis nearby& provides lotsofsupport.Cont current monitoring. Return in 3-4 months. Time:Total time spent with this patient on day of evaluation including chart review, ordering, education and coordination of care elements: 43_ minutes Problem List/Past Medical History Ongoing AAA (abdominal aortic aneurysm) Accidental fall Accidental fall Acute pancreatitis Advanced directives, counseling/discussion Aneurysm of right popliteal artery Annual physical exam Ascending aortic aneurysm Cachexia Chewing tobacco nicotine dependence without complication Closed right humeral fracture Dysphagia Elderly person living alone Episode of syncope Erythema Femoral artery aneurysm H/O dehydration Hernia, umbilical History of CVA (cerebrovascular accident) History of malignant melanoma of skin Hyperlipidemia Hyperlipidemia Hypomagnesemia Hypomagnesemia Iliac artery aneurysm Lives alone Major depressive disorder, recurrent, in full remission Melanoma Pancreatic pseudocyst Peripheral artery aneurysm Personal history of malignant melanoma Personal history of other diseases of the respiratory system S/P laparoscopic cholecystectomy Sacral decubitus ulcer, stage II Sepsis due to Escherichia coli Tobacco user Type 2 diabetes, HbA1C goal < 8% Unspecified fracture of shaft of humerus, right arm, subsequent encounter for fracture with routinehealing Procedure/Surgical History Cholecystectomy| Service Date: 05/16/2023Repair of umbilical hernia| Service Date: 05/16/2023ERCP| Service Date: 03/31/2023Excision| Service Date: 03/27/2023Shave biopsy of skin| Service Date: 02/20/2023Upper GI (gastrointestinal) endoscopy| Service Date: 07/05/2022have biopsyand cauterization of skin| Service Date: 06/23/2022have biopsy of skin| Service Date: 03/11/2021have biopsy| Service Date: 12/10/2020xcision| Service Date: 05/20/2020endovascular repair of right popliteal artery aneurysm| Service Date: 06/29/2018HemorrhoidectomyRepair of inguinal hernia RightCT cervical spine without contrastComputed tomography (CT) of abdomen and pelvis with contrastComputed tomography (CT) of head and neckArm fracture Medications ascorbic acid(Vitamin C) aspirin(aspirin 81 mg oral delayed release tablet), 81 mg= 1 tab, PO, Daily bifidobacterium-lactobacillus(Probiotic Formula) calcitriol(calcitriol 0.25 mcg oral capsule), 1 cap, PO, Daily clopidogrel(clopidogrel 75 mg oral tablet), 1 tab, PO, Daily diabetes supplies(One Touch Delica Plus (30G) Lancets), See Instructions, 3 refills diabetes supplies(One Touch Verio Test Strips), See Instructions, 3 refills FLUoxetine(FLUoxetine 40 mg oral capsule), 1 cap, PO, Daily levothyroxine(levothyroxine 88 mcg (0.088 mg) oral tablet), 1 tab, PO, Daily magnesium oxide(magnesium oxide 400 mg (241.3 mg elemental magnesium) oral tablet), 400 mg= 1 tab, PO, bid, 3 refills metFORMIN(metFORMIN 500 mg oral tablet), 2 tab, PO, bid multivitamin with minerals(Alive Men's 50+ Complete Multivitamin) pantoprazole(pantoprazole 40 mg oral delayed release tablet), 40 mg= 1 tab, PO, Daily, 1 refills simvastatin(simvastatin 40 mg oral tablet), 1 tab, PO, qhs tamsulosin(tamsulosin 0.4 mg oral capsule), 1 cap, PO, Daily Allergies NKA No Known Medication Allergies Social History Smoking Status Never smoked cigarettes Alcohol Use:Current Type:Beer Frequency:1-2 times per month Tobacco Use:Former smoker Smokeless tobacco use:Smokeless tobacco user within last 30 days Type:Cigarettes - Comments: Chews 1 can of snuff q3 days for ~50+ years Intake (IView) Smoking History Cigarette smoker: Never smoked cigarettes Tobacco Product Use: Current Smokeless tobacco use Family History Diabetes...: Mother. ESRD (end stage renal disease)...: Mother. Heart attack: Mother. Heart disease: Father. Hypertension: Father. Kidney disease: Mother. Health Status Family Member(s) Immunizations Vaccine Date Status pneumococcal 20-valent conjugate vaccine 05/01/2023 Given influenza virus vaccine, inactivated 09/12/2022 Given Recommendations Health Maintenance Pending(in the next year) OverDue Diabetic Eye Exam due08/13/22and every 366day Adult Influenza Vaccine due05/27/24and every 1year Due Colorectal Cancer Screening due01/30/25Unknown Frequency Diabetes Nephropathy Management due01/30/25Unknown Frequency Hepatitis C Screening due01/30/25One-time only Kidney Health Evaluation due01/30/25Unknown Frequency Medicare Annual Wellness Visit due01/30/25and every 1year Seasonal COVID 19 Vaccine due01/30/25Unknown Frequency Shingles Vaccine due01/30/25One-time only Due In Future Adult Social Determinants of Health Screening not due until08/31/25and every 366day Diabetes Management A1c not due until08/31/25and every 366day Satisfied(in the past 1 year) Satisfied Body Mass Index on08/31/24.Satisfied by JOAO Sutherland, [facility] A1c on08/30/24.Satisfied by SUSANA Nelson Lynnae Kidney Health Evaluation on09/03/24.Satisfied by Contributor_system, CAD Best Electronic Signature on File Electronically Reviewed/Signed by: Juanita Morgan MD Author Signature Dt/Tm:01/30/2025 10:39 AM Vulnerability Researcher [facility] [address], [address] [place] [address] [facility] Patient Care team information Care Team Personnel Name: MD Morgan Amy L Position: Physician - Family Med Member Role: Primary Care Provider Address: [address] [place] [address] Telecom: [phone] Name: SULEMA Smith Lynn Position: Physician Ethics Instructor Exempt - Vasc Surg Member Role: Lifetime Relationship Address: [address] [place] [address] Telecom: [phone] Name: Hoda Roque Jennifer Position: Pharmacist Member Role: Pharmacy - Lifetime Care Team Related Persons Name: QASIM ZAPATA Insurance Providers Guarantor name: RADHA Gamble [employer] Health Plan Information #: 1 Payer: [employer] Member Number: [id number] Policy Number: NA Group Number: [id number] Health Plan Information #: 2 Payer: [employer] Member Number: [id number] Policy Number: NA Group Number: [id number]"
[2025-02-01] MEDS ORDERED: HYDROmorphone INJ 0.5 MG/0.5 ML SYR IV PRN (13:28)
[2025-02-01 13:39] LABS: Basophils # (auto) 0.02 K/uL (0.00-0.20); Basophils % (auto) 0.2 %; Eosinophils # (auto) 0.03 K/uL (0.00-0.50); Eosinophils % (auto) 0.3 %; Hemoglobin 14.1 g/dl (14.0-18.0); Immature Granulocytes # (auto) 0.04 K/uL (0.01-0.20); Immature Granulocytes % (auto) 0.4 %; Lymphocytes # (auto) 1.11 K/uL (1.20-3.40); Lymphocytes % (auto) 11.5 %; Mean Corpuscular Hemoglobin 29.5 pg (25.0-34.0); Mean Corpuscular Hgb Conc 33.6 g/dL (32.0-36.0); Mean Corpuscular Volume 87.9 fL (80.0-100.0); Mean Platelet Volume 9.4 fL (9.4-12.4); Monocytes # (auto) 0.76 K/uL (0.11-0.59); Monocytes % (auto) 7.9 %; Neutrophils # (auto) 7.67 K/uL (1.40-6.50); Neutrophils % (auto) 79.7 %; Platelet Count 257 K/uL (130-400); RDW Coefficient of Variation 15.5 % (11.5-14.5); RDW Standard Deviation 49.4 fL (36.4-46.3); Red Blood Count 4.78 M/uL (4.70-6.10); White Blood Count 9.63 K/ul (4.8-10.8)
[2025-02-01 14:11] LABS: Albumin Globulin Ratio 1.1 (0.9-2); Albumin Level 4.1 gm/dl (3.4-5.0); BUN Creatinine Ratio 26.8 (10-20); Bilirubin,Total 1.3 mg/dl (0.2-1.0); C Reactive Protein 18.55 mg/dl (0-0.5); Calcium 9.6 mg/dl (8.6-10.3); Creatinine Clr Calc Pharmacy 86.7 ml/min; Globulin 3.8 gm/dl (2.5-4.0); Potassium 4.3 mmol/L (3.5-5.1); Total Protein 7.9 gm/dl (6.0-8.3)
[2025-02-01] MEDS: OPTIRAY 320 125ml IV ONE (14:33)
--- NOTE | 2025-02-01 14:42 | Emergency Department Note ---
Impression & Plan Right-sided chest wall pain, Hypoxia ED Provider Note NAME: RADHA BERGMAN AGE: 74 SEX: Male INFORMANT: Patient and weakness and family ED PROVIDER(S): Robert Ramirez MD CHIEF COMPLAINT: Right chest wall pain PLAN: Disposition: Admitted Outpatient prescription management: none Referral: None MEDICAL DECISION MAKING: Patient presented because of pain and he was generally weak. He was noted to be mildly hypoxic again on arrival. He was doing well with supplemental oxygen. His CBC was unremarkable. He did have an elevated CRP. Chemistries were unremarkable. Bilirubin was stable. The patient was treated with a dose of Dilaudid and Zofran for symptom control. He underwent CT imaging of the chest which thankfully did not reveal any evidence of pulmonary embolism or pulmonary pathology to explain the hypoxia. The small fluid collection was visible at the bottom of the cuts. Urinalysis was ordered but is pending. Given the patient's breathing difficulties a ECG and cardiac troponin were done both were normal. Patient's BNP was mildly elevated but he does not have any peripheral edema. This will need further investigation. Given the hypoxia, weakness and this undiagnosed fluid collection problem that could not be taken care of through the primary office further management in the hospital was deemed appropriate. Consultation was made with the [facility]ist service. Patient was evaluated in the ER admitted for further management. Care/management discussed with: loss prevention operations manager Level of care consideration(s): After review of the information above and other included data, I feel the patient requires escalation of care to admission Triage Nursing notes: reviewed and agree them. Vital Signs: reviewed and remarkable for no significant abnormalities Additional History obtained from: Patient and family Chronic Medical/Social Conditions affecting care: Diabetes Prior/ Outside/ External records reviewed: none Differential Diagnosis: Exacerbation of chest wall fluid collection/abscess, renal colic, UTI, appendicitis, diverticulitis, mesenteric ischemia, aortic pathology, infections, inflammatory bowel disease, PUD, biliary pathology, as well as other pathologies. Diagnostics, independently interpreted by me: ECG: Twelve-lead ECG reveals a sinus rhythm with PVCs and left anterior fascicular block at [address] No ST elevation. Cardiac Monitoring: Cardiac monitoring ordered by me: The patient was placed on continuous cardiac monitoring and observed. It revealed a normal sinus rhythm at 75 beats per minute without ectopy or evidence of dysrhythmia. Medical decision rules: none Imaging studies: CT PE study is negative for pulmonary embolus or pneumothorax. I refer you to the EMR for further details. HPI: 74 year old Male arrives for evaluation of right sided chest wall pain and weakness. He points to the area of the lateral eighth rib. This started several weeks and is worsening. Patient was seen last week and was found to have a fluid collection around the eighth and ninth rib. He had a consult with surgery and was referred for outpatient follow-up/biopsy. Daughter states that they did follow-up with the primary office and were told to come back to the emergency department because the primary office does not do referrals for biopsies. Patient noted increased pain. On arrival he was noted to have an O2 saturation of 88%. Similar findings with his oxygen were noted the last visit very briefly but the patient had no persistence hypoxia and is not on oxygen at home. The patient also notes the following associated symptoms, generalized weakness and dyspnea on exertion. The patient has this taken no medication for relieving factors. Current pain is rated as 7/10. Pt denies LOC, headache, fevers, chills, diaphoresis, visual changes, neck pain, left chest pain, nausea, vomiting, abdominal pain, back pain, melena, hematochezia, urinary symptoms, numbness, lymphadenopathy, rash, or other complaints. PAST MEDICAL HISTORY: See Below, CVA, diabetes PAST SURGICAL HISTORY: See Below, SOCIAL HISTORY: See Below, retired HOME MEDICATIONS: See Below ALLERGIES: See Below VITALS: See Below PHYSICAL EXAMINATION: GENERAL: Awake, alert, uncomfortable-appearing, in no distress HENT: Normocephalic, atraumatic. Oropharynx unremarkable. EYES: Normal conjunctiva. Sclera non-icteric. NECK: Inspection normal. Non-tender. Supple. No nuchal rigidity. FROM. No masses. RESPIRATORY: Clear to auscultation. No wheezes. No rales. Normal respiratory effort. CARDIAC: Normal rate. Normal rhythm. No murmurs. No rubs. Extremities warm and well perfused. Pulses equal. No JVD. GI: Soft, non-distended. No tenderness to palpation. No rebound or guarding. No masses. RECTAL: Deferred. MUSCULOSKELETAL: Atraumatic. Chest examination reveals right lateral inferior tenderness. No fluctuance or erythema. The back is symmetrical on inspection without obvious abnormality. There is no CVA tenderness to palpation. No joint edema. LOWER EXTREMITIES: Calves are equal size bilaterally and non-tender. No edema. No discoloration. NEURO: Normal sensorium. No sensory or motor deficits noted. SKIN: No rash or jaundice noted. PROCEDURES: none CRITICAL CARE: none OBSERVATION NOTE: none Past Med/Surg History Problem List (Updated 02/02/25 @ 10:27 by Zhen Rios MD) Phlegmon Hypoxia (Acute) Right-sided chest wall pain (Acute) Flank Pain (Acute) Acute hyperglycemia (Acute) Mass in chest (Acute) Status post open reduction and internal fixation (ORIF) of fracture Acute hypoxemic respiratory failure Hypoxemia (Acute) Bacteremia Acute cholangitis Choledocholithiasis Unwitnessed fall Acute hyperglycemia (Acute) Hypoxia (Acute) Closed right humeral fracture (Acute) Fall (Acute) Hypomagnesemia (Acute) Dizziness (Acute) Gait instability (Acute) Status post umbilical hernia repair, follow-up exam Status post laparoscopic cholecystectomy Abscess, intra-abdominal, postoperative (Acute) Acute pancreatitis (Acute) Elevated troponin (Acute) Acute postoperative abdominal pain (Acute) Groin strain (Acute) Popliteal artery aneurysm (Acute) Borderline high cholesterol Malignant melanoma (Acute) Surgical wound, non healing (Acute) Esophageal dysphagia Type 2 diabetes mellitus History of CVA (cerebrovascular accident) Hypocalcemia Depression Vitamin D deficiency Splenic infarct Swelling of right upper extremity Gallstone pancreatitis Umbilical hernia Hypothyroidism HTN (hypertension) Medical History Dizziness Diabetes mellitus, type 2 Depression Hx of melanoma of skin Acute pancreatitis Hospitalized 03/2023 > acute kidney/liver failure Borderline hyperlipidemia Poor historian phone interview done by pts daughter History of COVID-19 11/16- congestion > resolved 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 Hood Enlarged prostate Diabetes TIA (transient ischemic attack) x2, Most recent 8+ years ago- residual problems with taking longer to process info Surgical History H/O umbilical hernia repair (05/16/23) p Laparoscopic Cholecystectomy(Not Applicable) - Deepak Pickering DO s and Open Umbilical Hernia Repair(Not Applicable) - Deepak Pickering DO Hx laparoscopic cholecystectomy (05/16/23) p Laparoscopic Cholecystectomy(Not Applicable) - Deepak Pickering DO s and Open Umbilical Hernia Repair(Not Applicable) - Deepak Pickering DO Family history of reaction to anesthesia daughter > post-op nausea History of esophagogastroduodenoscopy (EGD) History of ERCP + stent (plans for removal after lap [place]) S/P colonoscopy S/P hernia repair inguinal Social History Smoking Status: Never smoker Tobacco Type: Smokeless Tobacco (Dip or Chew) Cigarettes Per Day: quit smoking 40+ years; Second Hand Exposure: No; Do You Dip or Chew Tobacco: Yes; Hx Alcohol Use: No Hx Substance Use: No Preferred Language: Ukrainian Communication Ability: Effective Communication Ability Comment: na Visual Impairment: No Limitations Hearing Ability: Normal Air Quality Technician Required: No Beliefs That Will Affect Care: None marital status: Current Living Situation: Alone Current Living Situation Comment: dtr goes to drs appointments - he lives by himself current occupational status: retired Feels Safe at Home: Yes Assistive Devices: Glasses Allergies Allergies Allergy/AdvReac Type Severity Reaction Status Date / Time No Known Allergies Allergy Verified 02/01/25 15:08 Home Meds Home Medications Medication Instructions Recorded Confirmed clopidogrel 75 mg tablet 75 mg PO QAM 08/17/20 02/01/25 metformin 500 mg tablet 1,000 mg PO BID 08/17/20 02/01/25 aspirin 81 mg tablet,delayed 81 mg PO DAILY 03/31/23 02/01/25 release levothyroxine 88 mcg tablet 88 mcg PO QAM 03/31/23 02/01/25 (Synthroid) magnesium oxide 400 mg PO BID 03/31/23 02/01/25 simvastatin 40 mg tablet 40 mg PO DAILY 03/31/23 02/01/25 tamsulosin 0.4 mg capsule 0.4 mg PO DAILY 03/31/23 02/01/25 fluoxetine 40 mg capsule 40 mg PO HS 05/12/23 02/01/25 multivit with 1 tab PO DAILY 05/12/23 02/01/25 [id number] 18 mg iron-800 mcg-150 mg tablet (Vitamin D3 Complete) nitroglycerin 0.3 mg sublingual 0.3 mg sublingual UD PRN Chest Pain 05/20/23 02/01/25 tablet polyethylene glycol 3350 17 gram 17 g PO DAILY PRN constipation 05/20/23 02/01/25 oral powder packet (Miralax) lactobacillus combination no.4 3 3,000 mmu cells PO DAILY 09/12/24 02/01/25 billion cell capsule (Probiotic) Previous Rx's Medication Instructions Recorded blood sugar diagnostic (OneTouch #25 ea 04/14/23 Verio test strips) calcitriol 0.25 mcg capsule 0.25 mcg PO QAM #30 caps 04/14/23 pantoprazole 40 mg tablet,delayed 40 mg PO QAM #90 tabs 06/08/23 release Results & Data (ED) Vital Signs Vital Signs - 24 hr 02/01/25 17:00 Pulse Rate [Apical] 79 Respiratory Rate 20 Blood Pressure [Right Arm] 128/83 Blood Pressure Mean [Right Arm] 98 Pulse Oximetry 97 Oxygen Delivery Method Room Air Laboratory Data 02/01/25 13:14 02/01/25 13:14 Lab Results 02/01/25 02/01/25 02/01/25 Range/Units 13:14 14:42 17:14 WBC 9.63 (4.8-10.8) K/ul RBC 4.78 (4.70-6.10) M/uL Hgb 14.1 (14.0-18.0) g/dl Hct 42.0 (42.0-52.0) % MCV 87.9 (80.0-100.0) fL MCH 29.5 (25.0-34.0) pg MCHC 33.6 (32.0-36.0) g/dL RDW Std Deviation 49.4 H (36.4-46.3) fL RDW Coeff of Dinorah 15.5 H (11.5-14.5) % Plt Count 257 (130-400) K/uL MPV 9.4 (9.4-12.4) fL Immature Gran % (Auto) 0.4 % Neut % (Auto) 79.7 % Lymph % (Auto) 11.5 % [place] % (Auto) 7.9 % Eos % (Auto) 0.3 % Baso % (Auto) 0.2 % Neut # (Auto) 7.67 H (1.40-6.50) K/uL Lymph # (Auto) 1.11 L (1.20-3.40) K/uL [place] # (Auto) 0.76 H (0.11-0.59) K/uL Eos # (Auto) 0.03 (0.00-0.50) K/uL Baso # (Auto) 0.02 (0.00-0.20) K/uL Immature Gran # (Auto) 0.04 (0.01-0.20) K/uL Sodium 137 (136-145) mmol/L Potassium 4.3 (3.5-5.1) mmol/L Chloride 103 (98-107) mmol/L Carbon Dioxide 23 (21-32) mmol/L Anion Gap 11 (3-11) BUN 22 (6-23) mg/dl Creatinine 0.82 (0.6-1.4) mg/dl Est Cr Clr Drug Dosing 86.7 ml/min eGFR 92.18 BUN/Creatinine Ratio 26.8 H (10-20) Glucose 314 H* (70-99(Fasting)) mg/dl POC Glucose (70-99) mg/dl Calcium 9.6 (8.6-10.3) mg/dl Total Bilirubin 1.3 H (0.2-1.0) mg/dl AST 15 (13-39) U/L ALT 13 (7-52) U/L Alkaline Phosphatase 92 (34-104) U/L Troponin I High Sens 9.0 (0-20) pg/ml C-Reactive Protein 18.55 H (0-0.5) mg/dl B-Natriuretic Peptide 121 H (0-100) pg/ml Total Protein 7.9 (6.0-8.3) gm/dl Albumin 4.1 (3.4-5.0) gm/dl Globulin 3.8 (2.5-4.0) gm/dl Albumin/Globulin Ratio 1.1 (0.9-2) Lipase 8 L (11-82) U/L Procalcitonin Cancelled 0.20 Urine Color Yellow Urine Appearance Clear (Clear) Urine pH 5.0 (4.5-7.5) Ur Specific [place] > 1.045 H (1.000-1.030) Urine Protein Negative (Negative) Urine Glucose (UA) 3+ H (Negative) Urine Ketones 1+ H (Negative) Urine Blood Negative (Negative) Urine Nitrite Negative (Negative) Urine Bilirubin Negative (Negative) Urine Urobilinogen Negative (Negative) Ur Leukocyte Esterase Negative (Negative) 02/01/25 Range/Units 17:16 WBC (4.8-10.8) K/ul RBC (4.70-6.10) M/uL Hgb (14.0-18.0) g/dl Hct (42.0-52.0) % MCV (80.0-100.0) fL MCH (25.0-34.0) pg MCHC (32.0-36.0) g/dL RDW Std Deviation (36.4-46.3) fL RDW Coeff of Dinorah (11.5-14.5) % Plt Count (130-400) K/uL MPV (9.4-12.4) fL Immature Gran % (Auto) % Neut % (Auto) % Lymph % (Auto) % [place] % (Auto) % Eos % (Auto) % Baso % (Auto) % Neut # (Auto) (1.40-6.50) K/uL Lymph # (Auto) (1.20-3.40) K/uL [place] # (Auto) (0.11-0.59) K/uL Eos # (Auto) (0.00-0.50) K/uL Baso # (Auto) (0.00-0.20) K/uL Immature Gran # (Auto) (0.01-0.20) K/uL Sodium (136-145) mmol/L Potassium (3.5-5.1) mmol/L Chloride (98-107) mmol/L Carbon Dioxide (21-32) mmol/L Anion Gap (3-11) BUN (6-23) mg/dl Creatinine (0.6-1.4) mg/dl Est Cr Clr Drug Dosing ml/min eGFR BUN/Creatinine Ratio (10-20) Glucose (70-99(Fasting)) mg/dl POC Glucose 212 H (70-99) mg/dl Calcium (8.6-10.3) mg/dl Total Bilirubin (0.2-1.0) mg/dl AST (13-39) U/L ALT (7-52) U/L Alkaline Phosphatase (34-104) U/L Troponin I High Sens (0-20) pg/ml C-Reactive Protein (0-0.5) mg/dl B-Natriuretic Peptide (0-100) pg/ml Total Protein (6.0-8.3) gm/dl Albumin (3.4-5.0) gm/dl Globulin (2.5-4.0) gm/dl Albumin/Globulin Ratio (0.9-2) Lipase (11-82) U/L Procalcitonin Urine Color Urine Appearance (Clear) Urine pH (4.5-7.5) Ur Specific [place] (1.000-1.030) Urine Protein (Negative) Urine Glucose (UA) (Negative) Urine Ketones (Negative) Urine Blood (Negative) Urine Nitrite (Negative) Urine Bilirubin (Negative) Urine Urobilinogen (Negative) Ur Leukocyte Esterase (Negative) Administered Medications Aspirin (Aspirin 81 Mg Ectab) 81 mg PO DAILY [facility] Stop: 03/04/25 08:59 Last Admin: 02/02/25 08:02 Dose: 81 mg Documented By: BELEN Enoxaparin Sodium (Enoxaparin Inj 40 Mg/0.4 Ml Syr) 40 mg SQ QAM [place] Stop: 03/04/25 08:59 Last Admin: 02/02/25 08:03 Dose: 40 mg Documented By: BELEN Fluoxetine HCl (Fluoxetine Hcl 20 Mg Cap) 40 mg PO HS [facility] Stop: 03/03/25 20:59 Last Admin: 02/01/25 21:05 Dose: 40 mg Documented By: ROGER Insulin Aspart (Insulin Aspart Per Unit Charge) 0 units SC ACHS [place] Stop: 03/03/25 20:59 Last Admin: 02/02/25 17:05 Dose: 10 units Documented By: BELEN Co-signed By: ALEXANDER Admin: 02/02/25 13:09 Dose: 6 units Documented By: BELEN Co-signed By: ALEXANDER Admin: 02/02/25 08:08 Dose: 8 units Documented By: BELEN Co-signed By: ASTRID Admin: 02/01/25 21:12 Dose: 7 units Documented By: ROGER Co-signed By: CHARLIE Levothyroxine Sodium (Levothyroxine Sodium 88 Mcg Tablet) 88 mcg PO QAM [facility] Stop: 03/04/25 08:59 Last Admin: 02/02/25 08:02 Dose: 88 mcg Documented By: BELEN Magnesium Oxide (Magnesium Oxide 400 Mg Tab) 400 mg PO BID [place] Stop: 03/03/25 20:59 Last Admin: 02/02/25 08:02 Dose: 400 mg Documented By: Admin: 02/01/25 21:06 Dose: 400 mg Documented By: ROGER Miscellaneous (Remove Lidoderm Patch) 1 each N/A DAILY@2100 [facility] Stop: 03/03/25 20:59 Last Admin: 02/01/25 21:04 Dose: Not Given Documented By: ROGER Pantoprazole Sodium (Pantoprazole 40 Mg Tab) 40 mg PO QAM [place] Stop: 03/04/25 08:59 Last Admin: 02/02/25 08:02 Dose: 40 mg Documented By: BELEN Simvastatin (Simvastatin 40 Mg Tab) 40 mg PO DAILY [place] Stop: 03/04/25 08:59 Last Admin: 02/02/25 08:03 Dose: 40 mg Documented By: BELEN Tamsulosin HCl (Tamsulosin Hcl 0.4 Mg Cap) 0.4 mg PO DAILY [facility] Stop: 03/04/25 08:59 Last Admin: 02/02/25 08:03 Dose: 0.4 mg Documented By: BELEN Discontinued Medications Insulin Glargine (Lantus Per Unit Charge) 10 units SC ONE ONE Stop: 02/02/25 08:31 Last Admin: 02/02/25 09:15 Dose: 10 units Documented By: BELEN Co-signed By: ALEXANDER Insulin Human Regular (Novolin-R Insulin Per Unit Charge) 6 units IV NOW STA Stop: 02/01/25 15:43 Last Admin: 02/01/25 16:08 Dose: 6 units Documented By: AbdonGV Co-signed By: NARINDER Ioversol (Optiray 320 125ml) 66 ml IV ONCE ONE Stop: 02/01/25 14:33 Last Admin: 02/01/25 14:33 Dose: 66 ml Documented By: THEO Lidocaine (Lidocaine 5% 1 Patch) 1 patch TD NOW STA Stop: 02/01/25 20:27 Last Admin: 02/01/25 21:04 Dose: Not Given Documented By: ROGER Ondansetron HCl (Ondansetron Inj 2 Mg/Ml 2 Ml Vial) 4 mg IV NOW STA Stop: 02/01/25 13:29 Last Admin: 02/02/25 00:54 Dose: Not Given Documented By: ROGER Imaging Data Radiologist's Impression: Chest CTA 02/01/25 13:28 HISTORY: Right sided chest pain and hypoxia. TECHNIQUE: Helical CT angiography of the chest was performed following uneventful administration of 66 mL of Optiray 320 IV contrast. Images are presented in axial, sagittal, and coronal reformats. Coronal and sagittal 3D MIP reconstructions are also provided. COMPARISON: Chest CT dated 09/12/2024. FINDINGS: Lungs: Scattered sub-4 mm pulmonary nodules involving both lungs. Trace right pleural effusion. Right basilar atelectasis. Mild atelectasis at the left lung base. No pneumothorax. Central tracheobronchial tree is patent. Heart/Mediastinum: Mild cardiomegaly. No pericardial effusion. Coronary artery calcifications are present. No suspicious mediastinal or hilar lymph nodes. Small hiatal hernia. Thoracic esophagus is unremarkable. Vasculature: No evidence of acute pulmonary embolism. No evidence of acute aortic process. Mild atherosclerotic vascular disease of the aorta and arch vessels. Mildly dilated aortic root measuring up to 5.1 cm in diameter Soft Tissues: Mild gynecomastia. Upper Abdomen: Nonspecific pneumobilia in the setting of cholecystectomy. The included upper abdomen is otherwise unremarkable. Bones: No acute osseous abnormality. Fixation hardware about the right proximal humerus. Degenerative changes of the spine and shoulders. IMPRESSION: 1. No evidence of acute pulmonary embolism or acute aortic process. 2. Mildly dilated aortic root measuring 5.1 cm in diameter. No evidence of acute aortic process. 3. Mild cardiomegaly with coronary artery calcifications. 4. Trace right pleural effusion. Mild adjacent right basilar atelectasis. 5. Sub-6 mm pulmonary nodules. No routine follow-up is necessary based on Fleischner Society criteria. If patient is high risk for lung malignancy (i.e. history of smoking or malignancy), then follow-up chest CT can be performed in 12 months. Electronically signed by Robert Rockwell 02-01-2025 2:52 PM Discharge Plan Visit Data Chief Complaint: Flank Pain Stated Complaint: PAIN R SIDE ED Provider: Robert Ramirez Discharge Problem: Right-sided chest wall pain, Hypoxia Patient Disposition: Admitted As Inpatient Discharge Instructions Interventions: ED Discharge Assessment Last Done: 02/01/25 19:34
--- NOTE | 2025-02-01 14:53 | CT Scan Report ---
HISTORY: Right sided chest pain and hypoxia. TECHNIQUE: Helical CT angiography of the chest was performed following uneventful administration of 66 mL of Optiray 320 IV contrast. Images are presented in axial, sagittal, and coronal reformats. Coronal and sagittal 3D MIP reconstructions are also provided. COMPARISON: Chest CT dated 09/12/2024. FINDINGS: Lungs: Scattered sub-4 mm pulmonary nodules involving both lungs. Trace right pleural effusion. Right basilar atelectasis. Mild atelectasis at the left lung base. No pneumothorax. Central tracheobronchial tree is patent. Heart/Mediastinum: Mild cardiomegaly. No pericardial effusion. Coronary artery calcifications are present. No suspicious mediastinal or hilar lymph nodes. Small hiatal hernia. Thoracic esophagus is unremarkable. Vasculature: No evidence of acute pulmonary embolism. No evidence of acute aortic process. Mild atherosclerotic vascular disease of the aorta and arch vessels. Mildly dilated aortic root measuring up to 5.1 cm in diameter Soft Tissues: Mild gynecomastia. Upper Abdomen: Nonspecific pneumobilia in the setting of cholecystectomy. The included upper abdomen is otherwise unremarkable. Bones: No acute osseous abnormality. Fixation hardware about the right proximal humerus. Degenerative changes of the spine and shoulders. IMPRESSION: 1. No evidence of acute pulmonary embolism or acute aortic process. 2. Mildly dilated aortic root measuring 5.1 cm in diameter. No evidence of acute aortic process. 3. Mild cardiomegaly with coronary artery calcifications. 4. Trace right pleural effusion. Mild adjacent right basilar atelectasis. 5. Sub-6 mm pulmonary nodules. No routine follow-up is necessary based on Fleischner Society criteria. If patient is high risk for lung malignancy (i.e. history of smoking or malignancy), then follow-up chest CT can be performed in 12 months. Electronically signed by Robert Rockwell 02-01-2025 2:52 PM
[2025-02-01] MEDS: NovoLIN-R INSULIN PER UNIT CHARGE IV STA (16:08)
[2025-02-01 17:36] LABS: Appearance Urine Clear (Clear); Bilirubin Urine Negative (Negative); Blood Urine Negative (Negative); Color Urine Yellow; Glucose Urine UA 3+ (Negative); Ketones Urine 1+ (Negative); Leukocyte Esterase Urine Negative (Negative); Nitrite Urine Negative (Negative); Protein Urine Negative (Negative); Specific Gravity Urine > 1.045 (1.000-1.030); Urobilinogen Urine Negative (Negative)
--- NOTE | 2025-02-01 18:04 | History & Physical Report ---
Date of Service February 01, 2025 Assessment & Plan (1) Right-sided chest wall pain: (2) Hypoxia: Plan This is a 74-year-old male who was diagnosed with a fluid collection adjacent to the right eighth and ninth rib 3 days ago in the emergency room and was asked to follow-up with PCP for outpatient biopsy. However a biopsy could not be arranged and the patient was asked to come back to the emergency room. He comes back with increasing pain at the site and was noted to be slightly hypoxic in the emergency room. 1. Fluid collection adjacent to right eighth and ninth ribs Recent CT abdomen showed the fluid collection Today's CT angio of the chest was done. Official report does not mention the fluid collection but it was seen on the images The patient needs a biopsy of the lesion. Noted that CRP was elevated but the patient has no leukocytosis or fever Will not start the patient on any antibiotics as there is no fever or elevated white count Differentials include abscess versus metastatic disease Will consult general surgery to see if a biopsy can be obtained. The patient received Plavix in the morning of 01/31. Will continue to hold Plavix until a biopsy can be obtained. No recent percutaneous procedures done in that area. The patient had an ERCP stent placement and removal done within the last few months but no procedure was done percutaneously. The laparoscopic prolonged bilateral removal was done in April 2024. IR is not available over the weekend. May consider consulting IR on Monday Ordered a Lidoderm patch to help with local pain 2. Hypoxia No shortness of breath at rest No hypoxia No leg edema Nothing to suggest CHF Chest CT did not show fluid congestion BNP was only mildly elevated Most likely the hypoxia is because of pain at the right lower ribs caused by deep inspiration Will order incentive spirometer 3. History of CVA Continue aspirin Hold Plavix until biopsy can be done Heart healthy diet 4. Hyperlipidemia Continue simvastatin 5. BPH Continue tamsulosin 6. Qgy-[id number]-[id number] diabetes mellitus type 2 Ordered a sliding scale insulin Hold metformin Diabetic diet 7. Hypothyroidism Continue levothyroxine 8. Anxiety/depression Continue fluoxetine 9. GERD Continue Protonix DVT prophylaxis: Lovenox CODE STATUS: DNR/DNI History of Present Illness Chief Complaint: Right chest wall/flank pain Primary Care Provider: Juanita Morgan MD This is a 74-year-old male who presented with the above chief complain t. The patient was accompanied by his daughter at the bedside. The daughter was the source of most of the history. The daughter stated that the patient had been having a right-sided chest wall/flank pain for several weeks now and it is getting worse. He was seen 3 days ago in the emergency room and was found to have a fluid collection around the eighth and ninth rib. A surgery consult was done in the emergency room and the patient was referred for outpatient follow- up/biopsy. The daughter stated that they followed up with PCP but they were unable to send referrals for biopsies and the patient was instructed to come back to the emergency room. In the meantime, the daughter noticed that his pain was getting worse and he was having difficulty ambulating because of the pain. He was also noted to be short of breath at times because of the pain. In the emergency room, he had some screening tests done that did not show any leukocytosis but he was noted to have an elevated CRP. Chemistries, bilirubin were stable. CT chest showed no PE. The CT chest did not report the fluid collection and the official report however the ED physician stated that it was visible in the lower cuts. However I was not able to open the imaging to visualize it myself. His BNP was very mildly elevated. He did not report any orthopnea. On questioning the daughter stated that she did notice some dyspnea on exertion but the shortness of breath could have been related to pain upon ambulation. In the emergency room, the patient was also noted to be very mildly hypoxic at 88% room air. Of note, the patient had acute hypoxic respiratory failure after right humerus fracture back in August 2024, thought to be related to fat embolism. No leg swelling. Past medical history 1. [id number] diabetes mellitus type 2, on metformin 2. Hyperlipidemia, on simvastatin 3. Anxiety/depression. On fluoxetine 4. History of CVA. On aspirin and Plavix. Last dose of Plavix was 3/7 AM 5. GERD. On Protonix 6. BPH, on tamsulosin 7. Right humerus fracture in August 2024 8. Acute hypoxic respiratory failure due to fat embolus from right humerus fracture in August 2024 9. Laparoscopic cholecystectomy a year ago 10. ERCP biliary stent placement followed by removal of stent in November 2024. No percutaneous procedures were done in the last 2-3 months. The stent placement and removal were both endoscopic procedures 11. Possible early dementia, as the daughter states that he is increasingly forgetful these days. 12. History of melanoma Allergies Allergy/AdvReac Type Severity Reaction Status Date / Time No Known Allergies Allergy Verified 02/01/25 15:08 Home Medications Medication Instructions Recorded Confirmed Type clopidogrel 75 mg tablet 75 mg PO QAM 08/17/20 02/01/25 History metformin 500 mg tablet 1,000 mg PO BID 08/17/20 02/01/25 History aspirin 81 mg tablet,delayed 81 mg PO DAILY 03/31/23 02/01/25 History release levothyroxine 88 mcg tablet 88 mcg PO QAM 03/31/23 02/01/25 History (Synthroid) magnesium oxide 400 mg PO BID 03/31/23 02/01/25 History simvastatin 40 mg tablet 40 mg PO DAILY 03/31/23 02/01/25 History tamsulosin 0.4 mg capsule 0.4 mg PO DAILY 03/31/23 02/01/25 History blood sugar diagnostic (OneTouch #25 ea 04/14/23 07/09/23 Rx Verio test strips) calcitriol 0.25 mcg capsule 0.25 mcg PO QAM #30 caps 04/14/23 02/01/25 Rx fluoxetine 40 mg capsule 40 mg PO HS 05/12/23 02/01/25 History multivit with 1 tab PO DAILY 05/12/23 02/01/25 History [id number]-#190herbal 18 mg iron-800 mcg-150 mg tablet (Vitamin D3 Complete) nitroglycerin 0.3 mg sublingual 0.3 mg sublingual UD PRN Chest Pain 05/20/23 02/01/25 History tablet polyethylene glycol 3350 17 gram 17 g PO DAILY PRN constipation 05/20/23 02/01/25 History oral powder packet (Miralax) pantoprazole 40 mg tablet,delayed 40 mg PO QAM #90 tabs 06/08/23 02/01/25 Rx release lactobacillus combination no.4 3 3,000 mmu cells PO DAILY 09/12/24 02/01/25 History billion cell capsule (Probiotic) Past Med/Surg History Problem List Hypoxia (Acute) Right-sided chest wall pain (Acute) Flank Pain (Acute) Acute hyperglycemia (Acute) Mass in chest (Acute) Status post open reduction and internal fixation (ORIF) of fracture Acute hypoxemic respiratory failure Hypoxemia (Acute) Bacteremia Acute cholangitis Choledocholithiasis Unwitnessed fall Acute hyperglycemia (Acute) Hypoxia (Acute) Closed right humeral fracture (Acute) Fall (Acute) Hypomagnesemia (Acute) Dizziness (Acute) Gait instability (Acute) Status post umbilical hernia repair, follow-up exam Status post laparoscopic cholecystectomy Abscess, intra-abdominal, postoperative (Acute) Acute pancreatitis (Acute) Elevated troponin (Acute) Acute postoperative abdominal pain (Acute) Groin strain (Acute) Popliteal artery aneurysm (Acute) Borderline high cholesterol Malignant melanoma (Acute) Surgical wound, non healing (Acute) Esophageal dysphagia Type 2 diabetes mellitus History of CVA (cerebrovascular accident) Hypocalcemia Depression Vitamin D deficiency Splenic infarct Swelling of right upper extremity Gallstone pancreatitis Umbilical hernia Hypothyroidism HTN (hypertension) Medical History Dizziness Diabetes mellitus, type 2 Depression Hx of melanoma of skin Acute pancreatitis Hospitalized 03/2023 > acute kidney/liver failure Borderline hyperlipidemia Poor historian phone interview done by pts daughter History of COVID-19 11/16- congestion > resolved 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 Hood Enlarged prostate Diabetes TIA (transient ischemic attack) x2, Most recent 8+ years ago- residual problems with taking longer to process info Surgical History H/O umbilical hernia repair (05/16/23) p Laparoscopic Cholecystectomy(Not Applicable) - Deepak Pickering DO s and Open Umbilical Hernia Repair(Not Applicable) - Deepak Pickering DO Hx laparoscopic cholecystectomy (05/16/23) p Laparoscopic Cholecystectomy(Not Applicable) - Deepak Pickering DO s and Open Umbilical Hernia Repair(Not Applicable) - Deepak Pickering DO Family history of reaction to anesthesia daughter > post-op nausea History of esophagogastroduodenoscopy (EGD) History of ERCP + stent (plans for removal after lap [place]) S/P colonoscopy S/P hernia repair inguinal Social History Smoking Status: Former smoker Tobacco Type: Cigarettes Cigarettes Per Day: quit smoking 40+ years; Second Hand Exposure: No; Do You Dip or Chew Tobacco: Yes (last chew yesterday morning); Hx Alcohol Use: No Hx Substance Use: No Preferred Language: Chinese Communication Ability: Effective Communication Ability Comment: na Visual Impairment: No Limitations Hearing Ability: Normal Works Manager Required: No Beliefs That Will Affect Care: None marital status: Current Living Situation: Alone Current Living Situation Comment: dtr goes to drs appointments - he lives by himself current occupational status: retired Feels Safe at Home: Yes Assistive Devices: None Review of Systems Review of Systems: All systems reviewed & are unremarkable except as noted in Subjective Physical Exam Physical Exam: General appearance: Awake, conversant, able to answer questions appropriately. AOx3. Pupils: Equally reactive to light and accommodation Neck: No masses, no thyromegaly Respiration: Clear to auscultation bilaterally. Normal effort Cardiovascular: S1-S2/regular rate and rhythm. No murmur, rubs or gallop. No edema. Abdomen: Soft, nondistended. There is tenderness to palpation over the right lower ribs and in the flank area. The patient seems to be afraid to take deep breath in because of pain on deep inspiration. Musculoskeletal: No clubbing, no cyanosis, normal range of motion Skin: No rashes, no nodules Neuro exam: Cranial nerves intact, sensation grossly intact Psychiatric: Patient has good judgment and insight. AOx3. Mood and affect appear normal Lymphatics: No cervical or axillary lymphadenopathy noted Results & Data Results & Data Vital Signs (Past 12 Hours) Vital Signs Temp Pulse Pulse Resp BP BP Pulse Ox 02/01/25 17:00 79 20 128/83 97 02/01/25 13:18 88 24 93 02/01/25 13:06 88 02/01/25 12:59 20 91 02/01/25 12:51 36.6 C 103 H 20 122/82 88 L O2 Del Method O2 Flow Rate 02/01/25 17:00 Room Air 02/01/25 13:18 Nasal Cannula 2 02/01/25 13:06 02/01/25 12:59 Nasal Cannula 2 02/01/25 12:51 Room Air Laboratory Results Abnormal lab results 02/01/25 02/01/25 02/01/25 Range/Units 13:14 17:14 17:16 RDW Std Deviation 49.4 H (36.4-46.3) fL RDW Coeff of Dinorah 15.5 H (11.5-14.5) % Neut # (Auto) 7.67 H (1.40-6.50) K/uL Lymph # (Auto) 1.11 L (1.20-3.40) K/uL Cuming # (Auto) 0.76 H (0.11-0.59) K/uL BUN/Creatinine Ratio 26.8 H (10-20) Glucose 314 H* (70-99(Fasting)) mg/dl POC Glucose 212 H (70-99) mg/dl Total Bilirubin 1.3 H (0.2-1.0) mg/dl C-Reactive Protein 18.55 H (0-0.5) mg/dl B-Natriuretic Peptide 121 H (0-100) pg/ml Lipase 8 L (11-82) U/L Ur Specific Levan > 1.045 H (1.000-1.030) Urine Glucose (UA) 3+ H (Negative) Urine Ketones 1+ H (Negative) Diagnostic Findings Chest CTA 02/01/25 13:28 HISTORY: Right sided chest pain and hypoxia. TECHNIQUE: Helical CT angiography of the chest was performed following uneventful administration of 66 mL of Optiray 320 IV contrast. Images are presented in axial, sagittal, and coronal reformats. Coronal and sagittal 3D MIP reconstructions are also provided. COMPARISON: Chest CT dated 09/12/2024. FINDINGS: Lungs: Scattered sub-4 mm pulmonary nodules involving both lungs. Trace right pleural effusion. Right basilar atelectasis. Mild atelectasis at the left lung base. No pneumothorax. Central tracheobronchial tree is patent. Heart/Mediastinum: Mild cardiomegaly. No pericardial effusion. Coronary artery calcifications are present. No suspicious mediastinal or hilar lymph nodes. Small hiatal hernia. Thoracic esophagus is unremarkable. Vasculature: No evidence of acute pulmonary embolism. No evidence of acute aortic process. Mild atherosclerotic vascular disease of the aorta and arch vessels. Mildly dilated aortic root measuring up to 5.1 cm in diameter Soft Tissues: Mild gynecomastia. Upper Abdomen: Nonspecific pneumobilia in the setting of cholecystectomy. The included upper abdomen is otherwise unremarkable. Bones: No acute osseous abnormality. Fixation hardware about the right proximal humerus. Degenerative changes of the spine and shoulders. IMPRESSION: 1. No evidence of acute pulmonary embolism or acute aortic process. 2. Mildly dilated aortic root measuring 5.1 cm in diameter. No evidence of acute aortic process. 3. Mild cardiomegaly with coronary artery calcifications. 4. Trace right pleural effusion. Mild adjacent right basilar atelectasis. 5. Sub-6 mm pulmonary nodules. No routine follow-up is necessary based on Fleischner Society criteria. If patient is high risk for lung malignancy (i.e. history of smoking or malignancy), then follow-up chest CT can be performed in 12 months. Electronically signed by Robert Rockwell 02-01-2025 2:52 PM PG Care Time/CCT Total # of Minutes Spent Total Time Spent with Patient: Total time spent is greater than 50% in coordination of care (as documented) at patient's floor/unit and/or counseling patient: Coding Level of Care Code 89395 INT INP/OBS CARE 2/55MIN Diagnoses Right-sided chest wall pain R07.89 Hypoxia R09.02
[2025-02-01] MEDS ORDERED: MELATONIN 3 MG TAB PO PRN (20:26)
[2025-02-01] MEDS ORDERED: CARBOHYDRATES FOR HYPOGLYCEMIA PO PRN (20:26)
[2025-02-01] MEDS ORDERED: GLUCOSE 40% GEL 15 GM TUBE PO PRN (20:26)
[2025-02-01] MEDS ORDERED: ALUMINUM/MAGNESIUM SUSP 30 ML UDC PO PRN (20:26)
[2025-02-01] MEDS ORDERED: POLYETHYLENE (MIRALAX) 17 GM PACK PO PRN (20:26)
[2025-02-01] MEDS ORDERED: DEXTROSE 50% 50 ML SYRINGE IV PRN (20:26)
[2025-02-01] MEDS ORDERED: MAGNESIUM HYDROXIDE SUSP 30 ML UDC PO PRN (20:26)
[2025-02-01] MEDS ORDERED: GLUCOSE 10 TAB/TUBE PO PRN (20:26)
[2025-02-01] MEDS ORDERED: ONDANSETRON INJ 2 MG/ML 2 ML VIAL IV PRN (20:26)
[2025-02-01] MEDS ORDERED: GLUCAGON FOR INJ 1 MG VIAL SQ PRN (20:26)
[2025-02-01] MEDS ORDERED: PHARMACY GLYCEMIC MGMT CONSULT PRN (20:26)
[2025-02-01] MEDS: LIDOCAINE 5% 1 PATCH TD STA (21:04)
[2025-02-01] MEDS: FLUoxetine HCL 20 MG CAP PO SCH (21:05)
[2025-02-01] MEDS: MAGNESIUM OXIDE 400 MG TAB PO SCH (21:06)
[2025-02-01] MEDS: INSULIN ASPART PER UNIT CHARGE SC SCH (21:12)
--- NOTE | 2025-02-01 22:50 | Electrocardiogram Report ---
Test Reason : Blood Pressure : */* mmHG Vent. Rate : 87 BPM Atrial Rate : 87 BPM P-R Int : 190 ms QRS Dur : 120 ms QT Int : 366 ms P-R-T Axes : 41 -60 61 degrees QTcB Int : 440 ms Normal sinus rhythm Left anterior fascicular block Minimal voltage criteria for LVH, may be normal variant ( [place] product ) Abnormal ECG When compared with ECG of 29-Jan-2025 15:46, Premature ventricular complexes are no longer Present Confirmed by Declan Barclay ([id number]) on 02/01/2025 10:50:19 PM Referred By: Juanita Morgan Confirmed By: Declan Barclay
[2025-02-02] MEDS: ONDANSETRON INJ 2 MG/ML 2 ML VIAL IV STA (00:54)
[2025-02-02] MEDS: PANTOprazole 40 MG TAB PO SCH (08:02)
[2025-02-02] MEDS: ASPIRIN 81 MG ECTAB PO SCH (08:02)
[2025-02-02] MEDS: LEVOTHYROXINE SODIUM 88 MCG TABLET PO SCH (08:02)
[2025-02-02] MEDS: ENOXAPARIN INJ 40 MG/0.4 ML SYR SQ SCH (08:03)
[2025-02-02] MEDS: TAMSULOSIN HCL 0.4 MG CAP PO SCH (08:03)
[2025-02-02] MEDS: SIMVASTATIN 40 MG TAB PO SCH (08:03)
[2025-02-02] MEDS: LANTUS PER UNIT CHARGE SC ONE (09:15)
--- NOTE | 2025-02-02 10:18 | Surgery Consultation ---
Date of Consultation February 02, 2025 Assessment & Plan (1) Phlegmon: right chest wall phklegmon/fluid collection recommend image-guided IR biopsy or IR drainage History of Present Illness Attending Physician: Mika Lopez MD History of Present Illness This si a 74YO male with a complex mass./fluid collection next to his right eighth and ninth rib; admitted from ED with hypoxia and right flank pain. There was an attempt to schedule an outpatient biopsy. A CT showed a complex fluid/mass collection. Allergies Allergy/AdvReac Type Severity Reaction Status Date / Time No Known Allergies Allergy Verified 02/01/25 15:08 Home Medications Medication Instructions Recorded Confirmed Type clopidogrel 75 mg tablet 75 mg PO QAM 08/17/20 02/01/25 History metformin 500 mg tablet 1,000 mg PO BID 08/17/20 02/01/25 History aspirin 81 mg tablet,delayed 81 mg PO DAILY 03/31/23 02/01/25 History release levothyroxine 88 mcg tablet 88 mcg PO QAM 03/31/23 02/01/25 History (Synthroid) magnesium oxide 400 mg PO BID 03/31/23 02/01/25 History simvastatin 40 mg tablet 40 mg PO DAILY 03/31/23 02/01/25 History tamsulosin 0.4 mg capsule 0.4 mg PO DAILY 03/31/23 02/01/25 History blood sugar diagnostic (OneTouch #25 ea 04/14/23 07/09/23 Rx Verio test strips) calcitriol 0.25 mcg capsule 0.25 mcg PO QAM #30 caps 04/14/23 02/01/25 Rx fluoxetine 40 mg capsule 40 mg PO HS 05/12/23 02/01/25 History multivit with 1 tab PO DAILY 05/12/23 02/01/25 History [id number]-[id number]-JC-#190herbal 18 mg iron-800 mcg-150 mg tablet (Vitamin D3 Complete) nitroglycerin 0.3 mg sublingual 0.3 mg sublingual UD PRN Chest Pain 05/20/23 02/01/25 History tablet polyethylene glycol 3350 17 gram 17 g PO DAILY PRN constipation 05/20/23 02/01/25 History oral powder packet (Miralax) pantoprazole 40 mg tablet,delayed 40 mg PO QAM #90 tabs 06/08/23 02/01/25 Rx release lactobacillus combination no.4 3 3,000 mmu cells PO DAILY 09/12/24 02/01/25 History billion cell capsule (Probiotic) Patient History Medical History Dizziness Diabetes mellitus, type 2 Depression Hx of melanoma of skin Acute pancreatitis Hospitalized 03/2023 > acute kidney/liver failure Borderline hyperlipidemia Poor historian phone interview done by pts daughter History of COVID-19 11/16- congestion > resolved 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 Hood Enlarged prostate Diabetes TIA (transient ischemic attack) x2, Most recent 8+ years ago- residual problems with taking longer to process info Surgical History H/O umbilical hernia repair (05/16/23) p Laparoscopic Cholecystectomy(Not Applicable) - Deepak Pickering, DO s and Open Umbilical Hernia Repair(Not Applicable) - Deepak Pickering DO Hx laparoscopic cholecystectomy (05/16/23) p Laparoscopic Cholecystectomy(Not Applicable) - Deepak Pickering, DO s and Open Umbilical Hernia Repair(Not Applicable) - Deepak Pickering, DO Family history of reaction to anesthesia daughter > post-op nausea History of esophagogastroduodenoscopy (EGD) History of ERCP + stent (plans for removal after lap [place]) S/P colonoscopy S/P hernia repair inguinal Social History Smoking Status: Never smoker Tobacco Type: Smokeless Tobacco (Dip or Chew) Cigarettes Per Day: quit smoking 40+ years; Second Hand Exposure: No; Do You Dip or Chew Tobacco: Yes; Hx Alcohol Use: No Hx Substance Use: No Preferred Language: Arabic Communication Ability: Effective Communication Ability Comment: na Visual Impairment: No Limitations Hearing Ability: Normal Sourcing Analyst Required: No Beliefs That Will Affect Care: None marital status: Current Living Situation: Alone Current Living Situation Comment: dtr goes to drs appointments - he lives by himself current occupational status: retired Feels Safe at Home: Yes Assistive Devices: Glasses Review of Systems Constitutional: no fever and no chills Eyes: no problem reported Ear, Nose, Mouth, Throat: no problem reported Respiratory: + dyspnea; no cough Cardiovascular: no chest pain Gastrointestinal: + abdominal pain (right flank); no nause a and no vomiting Genitourinary: no dysuria Musculoskeletal: + back pain Neurologic: + generalized weakness; no localized wea kness Psychiatric: no behavioral changes Endocrine: + fatigue Physical Exam Constitutional: WD/WN, vitals as above Eyes: no scleral abnormality ENMT: external ear and nose normal, oropharynx normal Neck: trachea midline Respiratory: normal respiratory effort, lungs clear to auscultation Cardiovascular: RRR, no murmur, no edema Chest (Breasts): Additional Comments: right chest wall tenderness Gastrointestinal (Abdomen): normal bowel sounds, soft, nontender, no hepat osplenomegaly Skin: no rashes, warm and dry Results & Data Vital Signs (Past 12 Hours) Vital Signs Temp Pulse Resp BP Pulse Ox O2 Del Method 02/02/25 07:09 36.7 C 69 16 124/79 92 Room Air Diagnostic Findings EXAM: CT Abdomen and Pelvis With Intravenous Contrast INDICATION: Right abdominal pain. History of biliary stent. TECHNIQUE: Axial computed tomography images of the abdomen and pelvis with intravenous contrast. Sagittal and coronal reformatted images were created and reviewed. This CT exam was performed using one or more of the following dose reduction techniques: automated exposure control, adjustment of the mA and/or kV according to patient size, and/or use of iterative reconstruction technique. CONTRAST: 90ml of Optiray 320 was administered intravenously. COMPARISON: 08/29/2024 FINDINGS: Limitations: None. Lung bases: No abnormality noted. Pleural space: No visualized pleural effusion or pneumothorax. Heart: No abnormality noted. Mediastinum: No abnormality noted. ABDOMEN: Liver: No abnormality noted. Gallbladder and bile ducts: Cholecystectomy. No ductal dilation or stone noted. Pancreas: Homogeneous enhancement. No mass, inflammation or ductal dilation. Spleen: No significant abnormality noted. Adrenals: No significant abnormality noted. Kidneys and ureters: Simple bilateral renal cysts noted. No follow-up necessary. No stones or hydronephrosis. Stable bilateral renal cortical and perinephric scarring. No hydronephrosis or stone. Stomach and bowel: Moderate amounts of stool in the colon and moderate diverticulosis most prominent on the left. No diverticulitis. No obstruction. PELVIS: Appendix: Well seen and appears normal. Bladder: No filling defects to suggest mass or large stone. No inflammation. Reproductive: Stable heterogeneous appearance of the mildly enlarged prostate. ABDOMEN and PELVIS: Intraperitoneal space: No free intraperitoneal air or fluid. Bones/joints: No interval change heterogeneous sclerosis and cortical irregularity of the anterolateral right eighth and ninth ribs. Stable old fracture posterior right 11th rib. There is a new irregular partially loculated rim-enhancing fluid collection located subjacent to the anterolateral ninth rib extending partially into the intercostal space and inwardly bowing the peritoneum. The collection measures 4.1 cm AP by 2.8 cm transverse by 6.0 cm long. Soft tissues: Intact right inguinal hernia repair. Stable fat-containing left inguinal hernia. Vasculature: There is atherosclerosis of the aorta and branches. The distal abdominal aortic aneurysm is unchanged measuring sagittal dimension 4 cm. Stable calcified 2.2 cm left common iliac artery aneurysm. There is no hemorrhage or occlusion. No dissection. Lymph nodes: No pathologically enlarged lymph nodes. IMPRESSION: 1. There is a irregular extraperitoneal fluid collection subjacent to the anterolateral slightly sclerotic right eighth and ninth ribs. Metastatic disease should be considered and correlated clinically. Abscess is an additional consideration. 2. 4 cm distal abdominal aortic aneurysm without rupture. Recommend abdomen/pelvis CT or MR imaging follow-up in 1 year. Impression moderate amounts of colonic stool with diverticulosis. No diverticulitis. 3. Stable heterogeneous appearance of the mildly enlarged enlarged prostate.
--- NOTE | 2025-02-02 10:26 | Orthopedic Consultation ---
Date of Consultation February 02, 2025 Assessment & Plan (1) Status post open reduction and internal fixation (ORIF) of fracture: (2) Acute hypoxemic respiratory failure: (3) Mass in chest: (4) Acute hyperglycemia: (5) Flank Pain: (6) Right-sided chest wall pain: (7) Hypoxia: (8) Malignant melanoma: (9) Type 2 diabetes mellitus: (10) History of CVA (cerebrovascular accident): (11) Depression: (12) Vitamin D deficiency: Plan This is a 74-year-old gentleman who was admitted to the hospital for evaluation of a mass in his right chest wall. General surgery and the medical team are managing this and are working on obtaining a biopsy. Orthopedics was consulted as the patient has a history of ORIF of his right proximal humerus by Dr. Pantoja. August 2024. No x-rays of the shoulder were ordered upon time of consultation, so I did obtain these today. These demonstrate stable internal fixation. otherwise, with regards to the right shoulder, the patient should be working physical therapy on strengthening and range of motion. His primary concern at this point is lack of mobility in the shoulder. Overall, with regards to further care, I have informed Dr. Pantoja that the patient is here and he will see the patient while he is admitted. I do think that the mass in the patient's chest wall needs to be thoroughly worked up as well as workup for metastatic disease including potential bony metastasis. This can be done once a primary diagnosis is obtained. History of Present Illness Reason for Consultation: "f/u for r. arm fracture, concerns about progress" Requesting Physician: Dr Brunner Attending Physician: Mika Lopez MD History of Present Illness This is a 74-year-old male who presented to the hospital to follow up of a fluid collection in his right chest wall. He was diagnosed with a fluid col lection adjacent to the right eighth and ninth rib in the emergency room last week and was asked to follow-up with PCP for outpatient biopsy. Apparantly, a biopsy could not be arranged and the patient was asked to come back to the emergency room. He comes back with increasing pain at the site and was noted to be slightly hypoxic in the emergency room. general surgery has been consulted for the patient's chest wall and he is admitted to the medical team. He is admitted primarily for the above complaint, however in August of last year, the patient did sustain a right proximal humerus fracture from a fall that was managed with open reduction internal fixation by Dr. Pantoja. patient does have follow-up scheduled with Dr. Pantoja. Considering the patient was admitted yesterday, orthopedics was consulted for this issue while he is in house. With regards the patient's right shoulder, he notes that he is not having significant pain. He states that he has not been doing much in the way of physical therapy and notes that his primary complaint is lack of mobility in the shoulder. Allergies Allergy/AdvReac Type Severity Reaction Status Date / Time No Known Allergies Allergy Verified 02/01/25 15:08 Home Medications Medication Instructions Recorded Confirmed Type clopidogrel 75 mg tablet 75 mg PO QAM 08/17/20 02/01/25 History metformin 500 mg tablet 1,000 mg PO BID 08/17/20 02/01/25 History aspirin 81 mg tablet,delayed 81 mg PO DAILY 03/31/23 02/01/25 History release levothyroxine 88 mcg tablet 88 mcg PO QAM 03/31/23 02/01/25 History (Synthroid) magnesium oxide 400 mg PO BID 03/31/23 02/01/25 History simvastatin 40 mg tablet 40 mg PO DAILY 03/31/23 02/01/25 History tamsulosin 0.4 mg capsule 0.4 mg PO DAILY 03/31/23 02/01/25 History blood sugar diagnostic (OneTouch #25 ea 04/14/23 07/09/23 Rx Verio test strips) calcitriol 0.25 mcg capsule 0.25 mcg PO QAM #30 caps 04/14/23 02/01/25 Rx fluoxetine 40 mg capsule 40 mg PO HS 05/12/23 02/01/25 History multivit with 1 tab PO DAILY 05/12/23 02/01/25 History eyx-dfei-OX-#190herbal 18 mg iron-800 mcg-150 mg tablet (Vitamin D3 Complete) nitroglycerin 0.3 mg sublingual 0.3 mg sublingual UD PRN Chest Pain 05/20/23 02/01/25 History tablet polyethylene glycol 3350 17 gram 17 g PO DAILY PRN constipation 05/20/23 02/01/25 History oral powder packet (Miralax) pantoprazole 40 mg tablet,delayed 40 mg PO QAM #90 tabs 06/08/23 02/01/25 Rx release lactobacillus combination no.4 3 3,000 mmu cells PO DAILY 09/12/24 02/01/25 History billion cell capsule (Probiotic) Patient History Medical History Dizziness Diabetes mellitus, type 2 Depression Hx of melanoma of skin Acute pancreatitis Hospitalized 03/2023 > acute kidney/liver failure Borderline hyperlipidemia Poor historian phone interview done by pts daughter History of COVID-19 11/16- congestion > resolved 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 Hood Enlarged prostate Diabetes TIA (transient ischemic attack) x2, Most recent 8+ years ago- residual problems with taking longer to process info Surgical History H/O umbilical hernia repair (05/16/23) p Laparoscopic Cholecystectomy(Not Applicable) - Deepak Pickering, s and Open Umbilical Hernia Repair(Not Applicable) - Deepak Pickering DO Hx laparoscopic cholecystectomy (05/16/23) p Laparoscopic Cholecystectomy(Not Applicable) - Deepak Pickering DO s and Open Umbilical Hernia Repair(Not Applicable) - Deepak Pickering, DO Family history of reaction to anesthesia daughter > post-op nausea History of esophagogastroduodenoscopy (EGD) History of ERCP + stent (plans for removal after lap philly) S/P colonoscopy S/P hernia repair inguinal Social History Smoking Status: Never smoker Tobacco Type: Smokeless Tobacco (Dip or Chew) Cigarettes Per Day: quit smoking 40+ years; Second Hand Exposure: No; Do You Dip or Chew Tobacco: Yes; Hx Alcohol Use: No Hx Substance Use: No Preferred Language: Lithuanian Communication Ability: Effective Communication Ability Comment: na Visual Impairment: No Limitations Hearing Ability: Normal [place] Machine Operator Required: No Beliefs That Will Affect Care: None marital status: Current Living Situation: Alone Current Living Situation Comment: dtr goes to drs appointments - he lives by himself current occupational status: retired Feels Safe at Home: Yes Assistive Devices: Glasses Review of Systems Review of Systems: All systems reviewed & are unremarkable except as noted in HPI & below Physical Exam Physical Exam: Right shoulder: Surgical incision well-healed. Tender to palpation of the right proximal humerus. Patient demonstrates forward elevation of approximately 40 degrees, abduction of approximately 45 degrees, external rotation approximately 10 degrees, and internal rotation to his greater trochanter. Results & Data Vital Signs (Past 12 Hours) Vital Signs Temp Pulse Resp BP Pulse Ox O2 Del Method 02/02/25 07:09 36.7 C 69 16 124/79 92 Room Air Diagnostic Findings X-rays the right shoulder obtained today were personally reviewed and interpreted. These demonstrate stable internal fixation with healing proximal humerus fracture. No evidence of hardware complication or failure.
--- NOTE | 2025-02-02 11:01 | XRay Report ---
XR shoulder RT min 2V routine CLINICAL HISTORY: s/p ORIF COMPARISON: 09/12/2024 FINDINGS: Stable plate-screw fixation of the proximal humerus with no displacement at the healing fr acture. IMPRESSION: Stable alignment. ACT 112: Negative or not required by law. Electronically signed by: Stanley Hernandez M.D. 02/02/2025 11:00 AM
--- NOTE | 2025-02-02 14:13 | Pharmacy Report ---
Pharmacy Glycemic Short Note 2 - Date of Service February 02, 2025 - Glycemic Short BSG Results (Last 24 hours): 02/01/25 02/01/25 02/01/25 13:14 17:16 21:05 Glucose 314 H* POC Glucose 212 H 323 H* 02/01/25 02/01/25 02/02/25 21:08 21:09 07:39 Glucose POC Glucose 278 H 323 H* 250 H 02/02/25 11:23 Glucose POC Glucose 280 H OUTPATIENT ANTIDIABETIC REGIMEN: * metformin 1000mg po BID last HbA1c: 8.8% on 08/30/24, Another level ordered for the morning of 02/03 ASSESSMENT: * 74 year old male admitted 02/01 with right-sided chest wall pain and hypoxia. Pharmacy has been consulted for glycemic management while he is admitted. * BSG was 314mg/dL on admit. He was given 6 units of iv regular insulin and then was started on a weight based bolus insulin regimen with a stress of 2. * Fasting BSG was 250mg/dL this morning. Lantus 10units SQ x 1 was given and the parameters of the bolus insulin were tightened starting with lunch today. PLAN FOR INPATIENT GLYCEMIC CONTROL: * Hold outpatient oral diabetes medications * Basal insulin * Lantus 10 units SQ x 1 today * Bolus insulin * NovoLog per scale ACHS or Q6hrs while NPO * Goal Range: Low 110 mg/dL - High 140 mg/dL * Correction Factor: 25 mg/dL/unit * Nutritional / Prandial insulin per carb ratio of 1 unit per 8 grams CHO consumed
--- NOTE | 2025-02-02 16:21 | Hospitalist Progress Note ---
Date of Service February 02, 2025 Assessment & Plan (1) Right-sided chest wall pain: (2) Hypoxia: Plan This is a 74-year-old male who was diagnosed with a fluid collection adjacent to the right eighth and ninth rib 3 days ago in the emergency room and was asked to follow-up with PCP for outpatient biopsy. However a biopsy could not be arranged and the patient was asked to come back to the emergency room. He comes back with increasing pain at the site and was noted to be slightly hypoxic in the emergency room. 1. Fluid collection adjacent to right eighth and ninth ribs Recent CT abdomen showed the fluid collection CT angio of the chest was done on admission. Official report does not mention the fluid collection but it was seen on the images The patient needs a biopsy of the lesion. Noted that CRP was elevated but the patient has no leukocytosis or fever Will not start the patient on any antibiotics as there is no fever or elevated white count Differentials include abscess versus metastatic disease General Surgery was consulted and recommended IR guided biopsy Consulted IR The patient received Plavix in the morning of 01/31. Will continue to hold Plavix until a biopsy can be obtained. No recent percutaneous procedures done in that area. The patient had an ERCP stent placement and removal done within the last few months but no procedure was done percutaneously. The laparoscopic prolonged bilateral removal was done in April 2024. Ordered a Lidoderm patch to help with local pain 2. Hypoxia No shortness of breath at rest No hypoxia No leg edema Nothing to suggest CHF or pneumonia Chest CT did not show fluid congestion BNP was only mildly elevated Most likely the hypoxia is because of pain at the right lower ribs caused by deep inspiration Will order incentive spirometer 3. Recent right humerus fracture Patient requested orthopedics consult since he was supposed to follow-up with orthopedics outpatient On-call orthopedic surgeon will inform Dr. Pantoja to see the patient while admitted 3. History of CVA Continue aspirin Hold Plavix until biopsy can be done Heart healthy diet 4. Hyperlipidemia Continue simvastatin 5. BPH Continue tamsulosin 6. [id number]-[id number] diabetes mellitus type 2 Ordered a sliding scale insulin Hold metformin Diabetic diet 7. Hypothyroidism Continue levothyroxine 8. Anxiety/depression Continue fluoxetine 9. GERD Continue Protonix DVT prophylaxis: Lovenox CODE STATUS: DNR/DNI Admission and Anticipated Discharge Date Admission Date: February 01, 2025 Subjective Patient was seen and examined at 9:40 AM. He is now on room air. Does not feel short of breath. He is lying flat on his bed. Denies chest pain Review of Systems Review of Systems: All systems reviewed & are unremarkable except as noted in Subjective Physical Exam Physical Exam: General: Awake, conversant Heart: S1, S2/regular rate and rhythm, no murmur rubs or gallops Lungs: Clear to auscultation bilaterally. Normal effort Abdomen: Soft/nontender/nondistended. Right flank tenderness. Tenderness on right eighth and ninth rib Extremities: No clubbing/cyanosis. No edema Behavior: Appropriate, cooperative Results & Data Results & Data Vital Signs (Past 12 Hours) Vital Signs Temp Pulse Resp BP Pulse Ox O2 Del Method 02/02/25 14:52 36.7 C 75 16 119/71 93 Room Air 02/02/25 07:09 36.7 C 69 16 124/79 92 Room Air Laboratory Results Abnormal lab results 02/01/25 02/01/25 02/01/25 Range/Units 13:14 17:14 17:16 POC Glucose 212 H (70-99) mg/dl B-Natriuretic Peptide 121 H (0-100) pg/ml Ur Specific Tyler > 1.045 H (1.000-1.030) Urine Glucose (UA) 3+ H (Negative) Urine Ketones 1+ H (Negative) 02/01/25 02/01/25 02/01/25 Range/Units 21:05 21:08 21:09 POC Glucose 323 H* 278 H 323 H* (70-99) mg/dl B-Natriuretic Peptide (0-100) pg/ml Ur Specific Tyler (1.000-1.030) Urine Glucose (UA) (Negative) Urine Ketones (Negative) 02/02/25 02/02/25 Range/Units 07:39 11:23 POC Glucose 250 H 280 H (70-99) mg/dl B-Natriuretic Peptide (0-100) pg/ml Ur Specific Tyler (1.000-1.030) Urine Glucose (UA) (Negative) Urine Ketones (Negative) Diagnostic Findings Shoulder X-Ray 02/02/25 09:57 XR shoulder RT min 2V routine CLINICAL HISTORY: s/p ORIF COMPARISON: 09/12/2024 FINDINGS: Stable plate-screw fixation of the proximal humerus with no displacement at the healing fracture. IMPRESSION: Stable alignment. ACT 112: Negative or not required by law. Electronically signed by: Stanley Hernandez M.D. 02/02/2025 11:00 AM PG Care Time/CCT Total # of Minutes Spent Total Time Spent with Patient: Total time spent is greater than 50% in coordination of care (as documented) at patient's floor/unit and/or counseling patient: Coding Level of Care Code 70094 SUB INP/OBS CARE 2/35MIN Diagnoses Right-sided chest wall pain R07.89 Hypoxia R09.02
[2025-02-03 08:40] LABS: Estimated Average Glucose 206 mg/dl; Hemoglobin A1C 8.8 % (4.5-5.6)
[2025-02-03] MEDS: LANTUS PER UNIT CHARGE SC SCH (09:34)
--- NOTE | 2025-02-03 11:04 | Surgery Progress Note ---
Date of Service February 03, 2025 Assessment & Plan (1) Phlegmon: Plan: right chest wall phlegmon/fluid collection ? related to cholecystectomy surgery , ? retained stone? recommend image-guided IR biopsy or IR drainage no acute surgical intervention required continue current medical management Discussed with Dr. Rios who agrees with above. Admission and Anticipated Discharge Date Admission Date: February 01, 2025 Subjective still having pain in the right lower chest area, no abdominal pain no nausea or vomiting urinating without difficulty no fevers or chills Physical Exam Constitutional: WD/WN, vitals as above cooperative and comfortable; no acute distress and not ill appearing Respiratory: normal respiratory effort; no respiratory distress Chest (Breasts): Additional Comments: Right anterior lower chest/upper abdomen. There is no erythema, ecchymosis, of the overlying skin. Pinpoint tenderness to the right lower anterior ribs. no i nduration or fluctuance at skin level. Gastrointestinal (Abdomen): Inspection/Auscultation: abdomen normal to inspection and + abdominal surgical scar (lap philly scars); abdomen not distended Percussion/Palpation: abdomen soft; abdomen nontender, no guarding, abdomen not rigid and abdomen not firm Skin: no rashes, warm and dry no jaundice Psychiatric: Orientation: alert and oriented x 3 Results & Data Vital Signs (Past 12 Hours) Vital Signs Temp Pulse Resp BP Pulse Ox O2 Del Method 02/03/25 07:29 36.9 C 70 16 120/79 92 Room Air Laboratory Results 02/03/25 02/03/25 02/03/25 Range/Units 07:07 06:08 00:03 POC Glucose 231 H 165 H (70-99) mg/dl Estimat Average Glucose 206 mg/dl Hemoglobin A1c 8.8 H (4.5-5.6) % 02/02/25 02/02/25 02/02/25 Range/Units 20:21 20:20 20:17 POC Glucose 287 H 281 H 305 H* (70-99) mg/dl Estimat Average Glucose mg/dl Hemoglobin A1c (4.5-5.6) % 02/02/25 02/02/25 Range/Units 16:52 11:23 POC Glucose 188 H 280 H (70-99) mg/dl Estimat Average Glucose mg/dl Hemoglobin A1c (4.5-5.6) %
--- NOTE | 2025-02-03 11:28 | Pharmacy Report ---
Pharmacy Glycemic Short Note 2 - Date of Service February 03, 2025 - Glycemic Short BSG Results (Last 24 hours): 02/02/25 02/02/25 02/02/25 11:23 16:52 20:17 POC Glucose 280 H 188 H 305 H* 02/02/25 02/02/25 02/03/25 20:20 20:21 00:03 POC Glucose 281 H 287 H 165 H 02/03/25 06:08 POC Glucose 231 H OUTPATIENT ANTIDIABETIC REGIMEN: * metformin 1000mg po BID HbA1c: 8.8% (02/03/25) ASSESSMENT: 02/03: * Payam received 40 units of insulin yesterday, 10 of which were basal. BSGs were: [phone] mg/dL. * Fasting BSG this AM is elevated at 231 mg/dL. Patient is currently NPO for possible IR guided biopsy. Uncertain if this will be done today. Will increase basal today. * Novolog was already administered this morning but will tighten both correction factor and carb ratio starting with lunch. 02/02: * 74 year old male admitted 02/01 with right-sided chest wall pain and hypoxia. Pharmacy has been consulted for glycemic management while he is admitted. * BSG was 314mg/dL on admit. He was given 6 units of iv regular insulin and then was started on a weight based bolus insulin regimen with a stress of 2. * Fasting BSG was 250mg/dL this morning. Lantus 10units SQ x 1 was given and th e parameters of the bolus insulin were tightened starting with lunch today. PLAN FOR INPATIENT GLYCEMIC CONTROL: * Hold outpatient oral diabetes medications * Basal insulin * Lantus 10 units SC BID * Bolus insulin * NovoLog per scale ACHS or Q6hrs while NPO * Goal Range: Low 110 mg/dL - High 140 mg/dL * Correction Factor: 20 mg/dL/unit * Nutritional / Prandial insulin per carb ratio of 1 unit per 6 grams CHO consumed
--- NOTE | 2025-02-03 15:40 | Hospitalist Progress Note ---
Date of Service February 03, 2025 Assessment & Plan (1) Right-sided chest wall pain: (2) Hypoxia: Plan This is a 74-year-old male who was diagnosed with a fluid collection adjacent to the right eighth and ninth rib 3 days ago in the emergency room and was asked to follow-up with PCP for outpatient biopsy. However a biopsy could not be arranged and the patient was asked to come back to the emergency room. He comes back with increasing pain at the site and was noted to be slightly hypoxic in the emergency room. 1. Fluid collection adjacent to right eighth and ninth ribs Recent CT abdomen showed the fluid collection CT angio of the chest was done on admission. Official report does not mention the fluid collection but it was seen on the images Patient was not started on any antibiotics as there was no fever or elevated white count and to get a non skewed biopsy finding Biopsy completed today 02/03 showed purulent discharge. Clearly an infection. General surgery notified. May be a dropped gallstone that got infected Patient has been started on IV Zosyn Continue to hold Plavix until further surgery plans 2. Hypoxia No shortness of breath at rest No hypoxia No leg edema Nothing to suggest CHF or pneumonia Chest CT did not show fluid congestion BNP was only mildly elevated Most likely the hypoxia is because of pain at the right lower ribs caused by deep inspiration Will order incentive spirometer 3. Recent right humerus fracture Patient requested orthopedics consult since he was supposed to follow-up with orthopedics outpatient On-call orthopedic surgeon will inform Dr. Pantoja to see the patient while admitted 3. History of CVA Continue aspirin Hold Plavix until further surgery plans Heart healthy diet 4. Hyperlipidemia Continue simvastatin 5. BPH Continue tamsulosin 6. Zev-pjfpgei-hwworqpaq diabetes mellitus type 2 Ordered a sliding scale insulin Hold metformin Diabetic diet 7. Hypothyroidism Continue levothyroxine 8. Anxiety/depression Continue fluoxetine 9. GERD Continue Protonix DVT prophylaxis: Lovenox CODE STATUS: DNR/DNI Daughter informed of biopsy findings. Daughter is relieved that it is not a malignancy. Admission and Anticipated Discharge Date Admission Date: February 01, 2025 Subjective Patient was seen and examined at 10:40 AM. Patient reports no change. No chest pain or shortness of breath. Review of Systems Review of Systems: All systems reviewed & are unremarkable except as noted in Subjective Physical Exam Physical Exam: General: Awake, conversant Heart: S1, S2/regular rate and rhythm, no murmur rubs or gallops Lungs: Clear to auscultation bilaterally. Normal effort Abdomen: Soft/nontender/nondistended. Right flank tenderness. Tenderness on right eighth and ninth rib Extremities: No clubbing/cyanosis. No edema Behavior: Appropriate, cooperative Results & Data Results & Data Vital Signs (Past 12 Hours) Vital Signs Temp Pulse Resp BP Pulse Ox O2 Del Method 02/03/25 15:01 36.6 C 84 16 113/77 94 Room Air 02/03/25 07:29 36.9 C 70 16 120/79 92 Room Air Laboratory Results Abnormal lab results 02/02/25 02/02/25 02/02/25 Range/Units 16:52 20:17 20:20 POC Glucose 188 H 305 H* 281 H (70-99) mg/dl Hemoglobin A1c (4.5-5.6) % 02/02/25 02/03/25 02/03/25 Range/Units 20:21 00:03 06:08 POC Glucose 287 H 165 H 231 H (70-99) mg/dl Hemoglobin A1c (4.5-5.6) % 02/03/25 02/03/25 02/03/25 Range/Units 07:07 11:57 14:48 POC Glucose 164 H 186 H (70-99) mg/dl Hemoglobin A1c 8.8 H (4.5-5.6) % PG Care Time/CCT Total # of Minutes Spent Total Time Spent with Patient: Total time spent is greater than 50% in coordination of care (as documented) at patient's floor/unit and/or counseling patient: Coding Level of Care Code 44673 SUB INP/OBS CARE 2/35MIN Diagnoses Right-sided chest wall pain R07.89 Hypoxia R09.02
--- NOTE | 2025-02-03 15:45 | Ultrasound Report ---
Ultrasound-guided right upper quadrant fluid collection aspiration INDICATION: Right upper quadrant loculated fluid collection PROCEDURE: Procedure and risks were explained. Informed consent was obtained. A final timeout was com pleted. The right upper quadrant was prepped and draped in sterile fashion. 1% lidocaine was utilized for skin anesthesia. Utilizing ultrasound guidance, a 20-gauge spinal needle was advanced into the loculated right upper q uadrant fluid collection. Ultrasound images were obtained. Approximately 6 mL of purulent fluid was a spirated and sent to lab for analysis. The needle was removed and Band-Aid applied. The patient heather ated the procedure well. Vital signs will be monitored postprocedure. IMPRESSION: Ultrasound-guided aspiration of a loculated right upper quadrant fluid collection as abov e. Performed, dictated, and signed by Angel Luis Carlson PA-C; to be co-signed by Dr. Valente Manriquez. Electronically signed by: Valente Manriquez M.D. 02/03/2025 4:07 PM
[2025-02-03] MEDS: 4.5GM X1 IV ONE (16:04)
[2025-02-03] MEDS: PIPERACILLIN/TAZOBACTAM 4.5 GM/100 ML BAG IV SCH (20:11)
[2025-02-04 07:37] LABS: Basophils # (auto) 0.01 K/uL (0.00-0.20); Basophils % (auto) 0.1 %; Eosinophils # (auto) 0.02 K/uL (0.00-0.50); Eosinophils % (auto) 0.2 %; Hematocrit (blood only) 36.6 % (42.0-52.0); Hemoglobin 12.5 g/dl (14.0-18.0); Immature Granulocytes # (auto) 0.04 K/uL (0.01-0.20); Immature Granulocytes % (auto) 0.3 %; Lymphocytes # (auto) 1.12 K/uL (1.20-3.40); Lymphocytes % (auto) 9.7 %; Mean Corpuscular Hemoglobin 29.5 pg (25.0-34.0); Mean Corpuscular Hgb Conc 34.2 g/dL (32.0-36.0); Mean Corpuscular Volume 86.3 fL (80.0-100.0); Mean Platelet Volume 9.2 fL (9.4-12.4); Monocytes # (auto) 0.88 K/uL (0.11-0.59); Monocytes % (auto) 7.7 %; Neutrophils # (auto) 9.43 K/uL (1.40-6.50); Platelet Count 270 K/uL (130-400); RDW Coefficient of Variation 15.4 % (11.5-14.5); RDW Standard Deviation 48.6 fL (36.4-46.3); Red Blood Count 4.24 M/uL (4.70-6.10)
[2025-02-04] MEDS: LANTUS PER UNIT CHARGE SC SCH ×2 (08:38→20:29)
[2025-02-04] MEDS ORDERED: LANTUS PER UNIT CHARGE SC SCH (09:00)
--- NOTE | 2025-02-04 11:24 | Surgery Progress Note ---
Date of Service February 04, 2025 Assessment & Plan (1) Phlegmon: Plan: His CT images and results were personally viewed and interpreted by myself He has a small abscess near the inferior portion of the right lobe of the liver This was aspirated by IR yesterday with return of purulent fluid The concern is retained stones causing the abscess He is still in significant pain and has TTP on exam Will make him NPO at [place] and tentatively plan on diagnostic laparoscopy, drainage of intra abdominal abscess and possible removal of retained stones tomorrow Please hold Plavix and Lovenox (2) Right-sided chest wall pain: (3) Abdominal wall abscess: Admission and Anticipated Discharge Date Admission Date: February 01, 2025 Subjective Pt seen and examined. States his pain is similar to yesterday. Afebrile. Has been tolerating diet. Review of Systems Constitutional: no fever and no chills Eyes: + corrective lenses; no blind spots Ear, Nose, Mouth, Throat: no ear pain and no hearing loss Respiratory: no cough and no dyspnea Cardiovascular: no chest pain and no dyspnea on exertion Gastrointestinal: + abdominal pain; no nausea, no vomiting , no constipation and no diarrhea/loose stools Genitourinary: no dysuria or no urinary incontinence Musculoskeletal: no back pain and no neck pain Integumentary: no changing lesions, no skin ulcer and no sores Neurologic: + memory loss; no unsteadiness and no he adache(s) Psychiatric: no behavioral changes and no depression Hematologic / Lymphatic: no easy bleeding and no easy bruising Physical Exam Constitutional: WD/WN, vitals as above Eyes: PERRL, conjunctivae normal, anicteric sclerae Respiratory: normal respiratory effort, lungs clear to auscultation Cardiovascular: RRR, no murmur, no edema Gastrointestinal (Abdomen): Inspection/Auscultation: abdomen normal to inspection; abdomen not distended Percussion/Palpation: + abdomen tender (Right sided) and abdomen soft Musculoskeletal: no cyanosis or clubbing, extremities motor strength 5/5 Skin: no rashes, warm and dry Neurologic: PERRL, EOMI, accommodation nl, no face palsy, no dysarthria Psychiatric: A+Ox3, euthymic affect Results & Data Vital Signs (Past 12 Hours) Vital Signs Temp Pulse Resp BP Pulse Ox O2 Del Method 03/11/25 07:51 36.7 C 73 18 124/80 91 Room Air PG Care Time/CCT Total # of Minutes Spent Total Time Spent with Patient: Total time spent is greater than 50% in coordination of care (as documented) at patient's floor/unit and/or counseling patient: Coding Level of Care Code 44851 SUB INP/OBS CARE 2/35MIN Diagnoses Phlegmon L02.91 Right-sided chest wall pain R07.89 Abdominal wall abscess L02.211
[2025-02-04] MEDS: ACETAMINOPHEN 325 MG TAB PO PRN (12:12)
--- NOTE | 2025-02-04 12:26 | Surgery Progress Note ---
Date of Service February 04, 2025 Assessment & Plan (1) Abdominal wall abscess: Plan: May or may not be retained the gallstones. I discussed with Dr. Pickering my partner who performed his cholecystectomy. Since I am related to the patient I would prefer he take over the care. I will reach out to discuss with the patient's daughter who I know well. Options would be conservative management with antibiotics and see how he does versus laparoscopy to evaluate the area possibly drain and remove gallstones if present. I will leave that up to the patient and Dr. Pickering. (2) Right-sided chest wall pain: Admission and Anticipated Discharge Date Admission Date: February 01, 2025 Subjective Patient seen. Feels slightly better than yesterday after the drainage although he continues to have right upper quadrant/flank discomfort. No new complaints. Physical Exam Physical Exam: Alert. No acute distress Abdomen is soft. Positive right flank/right upper quadrant tenderness over the abscess site. Results & Data Vital Signs (Past 12 Hours) Vital Signs Temp Pulse Resp BP Pulse Ox O2 Del Method 02/04/25 07:51 36.7 C 73 18 124/80 91 Room Air PG Care Time/CCT Total # of Minutes Spent Total Time Spent with Patient: Total time spent is greater than 50% in coordination of care (as documented) at patient's floor/unit and/or counseling patient: Coding Level of Care Code 18852 SUB INP/OBS CARE 12/21MIN Diagnoses Abdominal wall abscess L02.211 Right-sided chest wall pain R07.89
--- NOTE | 2025-02-04 13:41 | Pharmacy Report ---
Pharmacy Glycemic Short Note 2 - Date of Service February 04, 2025 - Glycemic Short BSG Results (Last 24 hours): 02/03/25 02/03/25 02/03/25 14:48 16:46 20:27 POC Glucose 186 H 277 H 311 H* 02/03/25 02/04/25 02/04/25 20:29 07:53 11:35 POC Glucose 248 H 225 H 216 H OUTPATIENT ANTIDIABETIC REGIMEN: * metformin 1000mg po BID HbA1c: 8.8% (02/03/25) ASSESSMENT: 02/04/25: * Blood sugars elevated yesterday, ranging 164-248 mg/dL w/ fasting blood glucose of 225 mg/dL this morning * Received 34 units of insulin (10 units of basal and 24 units of prandial/correctional bolus) * Patient is NPO after midnight tonight for diagnostic laparoscopy w/ possible drainage of intra-abdominal abscess/removal of retained gallstones * Current Novolog regimen is already fairly aggressive so will not further intensify today since will be NPO again tonight 02/03: * Payam received 40 units of insulin yesterday, 10 of which were basal. BSGs were: [phone] mg/dL. * Fasting BSG this AM is elevated at 231 mg/dL. Patient is currently NPO for possible IR guided biopsy. Uncertain if this will be done today. Will increase basal today. * Novolog was already administered this morning but will tighten both correction factor and carb ratio starting with lunch. 02/02: * 74 year old male admitted 02/01 with right-sided chest wall pain and hypoxia. Pharmacy has been consulted for glycemic management while he is admitted. * BSG was 314mg/dL on admit. He was given 6 units of iv regular insulin and then was started on a weight based bolus insulin regimen with a stress of 2. * Fasting BSG was 250mg/dL this morning. Lantus 10units SQ x 1 was given and the parameters of the bolus insulin were tightened starting with lunch today. PLAN FOR INPATIENT GLYCEMIC CONTROL: * Hold outpatient oral diabetes medications * Basal insulin * Lantus 10 units SC qAM * Lantus 0-5-10 units SC HS x 1 * Reassess in AM * Bolus insulin * NovoLog per scale ACHS or Q6hrs while NPO * Goal Range: Low 110 mg/dL - High 140 mg/dL * Correction Factor: 20 mg/dL/unit * Nutritional / Prandial insulin per carb ratio of 1 unit per 6 grams CHO consumed
[2025-02-04] MEDS: LIDOCAINE 5% 1 PATCH TD SCH (13:46)
--- NOTE | 2025-02-04 15:40 | Hospitalist Progress Note ---
Date of Service February 04, 2025 Assessment & Plan (1) Right-sided chest wall pain: (2) Hypoxia: Plan This is a 74-year-old male who was diagnosed with a fluid collection adjacent to the right eighth and ninth rib 3 days ago in the emergency room and was asked to follow-up with PCP for outpatient biopsy. However a biopsy could not be arranged and the patient was asked to come back to the emergency room. He comes back with increasing pain at the site and was noted to be slightly hypoxic in the emergency room. 1. Abdominal wall abscess Fluid collection adjacent to right eighth and ninth ribs Recent CT abdomen showed the fluid collection CT angio of the chest was done on admission. Official report does not mention the fluid collection but it was seen on the images Patient was not started on any antibiotics as there was no fever or elevated white count and to get a non skewed biopsy finding Biopsy completed 02/03 showed purulent discharge. Clearly an infection. General surgery notified. May be a dropped gallstone that got infected Patient has been started on IV Zosyn Continue to hold Plavix until further surgery plans Surgery planning to take him to the OR tomorrow 02/05. N.p.o. postmidnight 2. Hypoxia No shortness of breath at rest No hypoxia No leg edema Nothing to suggest CHF or pneumonia Chest CT did not show fluid congestion BNP was only mildly elevated Most likely the hypoxia is because of pain at the right lower ribs caused by deep inspiration Will order incentive spirometer Seems to have resolved 3. Recent right humerus fracture Patient requested orthopedics consult since he was supposed to follow-up with orthopedics outpatient On-call orthopedic surgeon will inform Dr. Pantoja to see the patient while admitted 3. History of CVA Continue aspirin Hold Plavix until further surgery plans Heart healthy diet 4. Hyperlipidemia Continue simvastatin 5. BPH Continue tamsulosin 6. [id number] diabetes mellitus type 2 Ordered a sliding scale insulin Hold metformin Diabetic diet 7. Hypothyroidism Continue levothyroxine 8. Anxiety/depression Continue fluoxetine 9. GERD Continue Protonix DVT prophylaxis: Lovenox CODE STATUS: DNR/DNI Daughter informed of biopsy findings 02/03. Daughter is relieved that it is not a malignancy. Admission and Anticipated Discharge Date Admission Date: February 01, 2025 Subjective Patient was seen and examined at 10:55 AM. No new complaints. Review of Systems Review of Systems: All systems reviewed & are unremarkable except as noted in Subjective Physical Exam Physical Exam: General: Awake, conversant Heart: S1, S2/regular rate and rhythm, no murmur rubs or gallops Lungs: Clear to auscultation bilaterally. Normal effort Abdomen: Soft/nontender/nondistended. Right flank tenderness. Tenderness on right eighth and ninth rib Extremities: No clubbing/cyanosis. No edema Behavior: Appropriate, cooperative Results & Data Results & Data Vital Signs (Past 12 Hours) Vital Signs Temp Pulse Resp BP Pulse Ox O2 Del Method 02/04/25 14:36 36.5 C 73 18 120/79 95 Room Air 02/04/25 07:51 36.7 C 73 18 124/80 91 Room Air PG Care Time/CCT Total # of Minutes Spent Total Time Spent with Patient: Total time spent is greater than 50% in coordination of care (as documented) at patient's floor/unit and/or counseling patient: Coding Level of Care Code 54743 SUB INP/OBS CARE 2/35MIN Diagnoses Right-sided chest wall pain R07.89 Hypoxia R09.02
[2025-02-04] MEDS: traMADol HCL 50 MG TABLET PO PRN (17:36)
[2025-02-05] MEDS ORDERED: Nursing to Pharmacy Communication SCH ×2 (04:45→12:30)
[2025-02-05] MEDS: INSULIN ASPART PER UNIT CHARGE SC SCH ×2 (05:39→21:18)
--- NOTE | 2025-02-05 08:24 | Surgery Progress Note ---
Date of Service February 05, 2025 Assessment & Plan (1) Phlegmon: Plan: He continues to have abdominal pain, mainly on the right The concern is retained stones causing the abscess Will proceed today with a diagnostic laparoscopy, drainage of intra abdominal abscess and possible removal of retained stones tomorrow Continue to hold Plavix and Lovenox Consent was obtained and risks discussed including bleeding, infection, injury to surrounding structures, failure to treat, negative findings (2) Right-sided chest wall pain: (3) Abdominal wall abscess: Admission and Anticipated Discharge Date Admission Date: February 01, 2025 Subjective Pt seen and examined. Still c/o abdominal pain, worse on right. Afebrile. No N/V. Review of Systems Constitutional: no fever and no chills Eyes: + corrective lenses; no blind spots Ear, Nose, Mouth, Throat: no ear pain and no hearing loss Respiratory: no cough and no dyspnea Cardiovascular: no chest pain and no dyspnea on exertion Gastrointestinal: + abdominal pain; no nausea, no vomiting , no constipation and no diarrhea/loose stools Genitourinary: no dysuria or no urinary incontinence Musculoskeletal: no back pain and no neck pain Integumentary: no changing lesions, no skin ulcer and no sores Neurologic: + memory loss; no unsteadiness and no he adache(s) Psychiatric: no behavioral changes and no depression Hematologic / Lymphatic: no easy bleeding and no easy bruising Physical Exam Constitutional: WD/WN, vitals as above Eyes: PERRL, conjunctivae normal, anicteric sclerae Respiratory: normal respiratory effort, lungs clear to auscultation Cardiovascular: RRR, no murmur, no edema Gastrointestinal (Abdomen): Inspection/Auscultation: abdomen normal to in spection; abdomen not distended Percussion/Palpation: + abdomen tender (Right sided) and abdomen soft Musculoskeletal: no cyanosis or clubbing, extremities motor strength 5/5 Skin: no rashes, warm and dry Neurologic: PERRL, EOMI, accommodation nl, no face palsy, no dysarthria Psychiatric: A+Ox3, euthymic affect Results & Data Vital Signs (Past 12 Hours) Vital Signs Temp Pulse Resp BP Pulse Ox O2 Del Method 02/05/25 08:01 36.7 C 74 16 117/77 93 Room Air PG Care Time/CCT Total # of Minutes Spent Total Time Spent with Patient: Total time spent is greater than 50% in coordination of care (as documented) at patient's floor/unit and/or counseling patient: Coding Level of Care Code 81405 SUB INP/OBS CARE 2MIN Diagnoses Phlegmon L02.91 Right-sided chest wall pain R07.89 Abdominal wall abscess L02.211
[2025-02-05 11:11] LABS: Hematocrit (blood only) 36.5 % (42.0-52.0); Mean Corpuscular Hemoglobin 28.8 pg (25.0-34.0); Mean Corpuscular Hgb Conc 32.9 g/dL (32.0-36.0); Mean Corpuscular Volume 87.7 fL (80.0-100.0); Mean Platelet Volume 9.2 fL (9.4-12.4); Platelet Count 290 K/uL (130-400); RDW Coefficient of Variation 15.3 % (11.5-14.5); RDW Standard Deviation 49.1 fL (36.4-46.3); Red Blood Count 4.16 M/uL (4.70-6.10); White Blood Count 9.68 K/ul (4.8-10.8)
[2025-02-05] MEDS: LANTUS PER UNIT CHARGE SC ONE (11:31)
[2025-02-05] MEDS: CEFEPIME 2000MG 2,000 MG/20 ML SYR IV SCH (11:32)
[2025-02-05] MEDS ORDERED: ROCURONIUM BROMIDE 10 MG/ML 5 ML VIAL IV ONE (12:07)
[2025-02-05] MEDS ORDERED: LIDOCAINE 2% 2 ML VIAL/AMP(20MG/ML) INFIL ONE (12:07)
[2025-02-05] MEDS ORDERED: DEXAMETHASONE SOD INJ 4 MG/ML VIAL ONE (12:07)
[2025-02-05] MEDS ORDERED: PROPOFOL IV EMULSION 10 MG/ML 20 ML VIAL IV ONE (12:07)
[2025-02-05] MEDS ORDERED: ONDANSETRON INJ 2 MG/ML 2 ML VIAL ONE (12:07)
[2025-02-05] MEDS ORDERED: fentaNYL citrate PF 100 MCG/2 ML VIAL ONE (12:08)
[2025-02-05] MEDS ORDERED: SUCCINYLCHOLINE CHLORIDE 20 MG/ML 10 ML VIAL IV ONE (12:31)
[2025-02-05] MEDS ORDERED: ONDANSETRON INJ 2 MG/ML 2 ML VIAL IV PRN (12:36)
[2025-02-05] MEDS ORDERED: HYDROmorphone INJ 1 MG/ML SYRINGE IV PRN (12:36)
[2025-02-05] MEDS ORDERED: ATROPINE SULFATE 0.1 MG/ML 10ML SYR IV PRN (12:36)
[2025-02-05] MEDS ORDERED: fentaNYL citrate PF 100 MCG/2 ML VIAL IV PRN (12:36)
[2025-02-05] MEDS ORDERED: ePHEDrine sulfate 50 MG/ML AMP IV PRN (12:36)
--- NOTE | 2025-02-05 12:39 | Anesthesiology Consultation ---
Date of Service February 05, 2025 Assessment & Plan Chart Review Chart Review: Acceptable Risk for Surgery Consults Requested none ASA ASA3 Proposed Anesthesia Anesthesia Type: General History Surgery Operation Date: 02/05/25 12:20 Proposed Procedures p Diagnostic Laparoscopy, Possible Drainage Intraabdominal Abscess, Possible Removal Retained Gallstones - Deepak Pickering, Height/Weight Height: 6 ft Weight: 78.2 kg Allergies Allergy/AdvReac Type Severity Reaction Status Date / Time No Known Allergies Allergy Verified 02/05/25 11:46 Medications Home Medications Medication Instructions Recorded Confirmed Last Taken clopidogrel 75 mg tablet 75 mg PO QAM 08/17/20 02/01/25 01/31/25 metformin 500 mg tablet 1,000 mg PO BID 08/17/20 02/01/25 01/31/25 aspirin 81 mg tablet,delayed 81 mg PO DAILY 03/31/23 02/01/25 01/31/25 release levothyroxine 88 mcg tablet 88 mcg PO QAM 03/31/23 02/01/25 01/31/25 (Synthroid) magnesium oxide 400 mg PO BID 03/31/23 02/01/25 01/31/25 simvastatin 40 mg tablet 40 mg PO DAILY 03/31/23 02/01/25 01/31/25 tamsulosin 0.4 mg capsule 0.4 mg PO DAILY 03/31/23 02/01/25 01/31/25 blood sugar diagnostic (OneTouch #25 ea 04/14/23 07/09/23 Unknown Verio test strips) calcitriol 0.25 mcg capsule 0.25 mcg PO QAM #30 caps 04/14/23 02/01/25 01/31/25 fluoxetine 40 mg capsule 40 mg PO HS 05/12/23 02/01/25 01/31/25 multivit with 1 tab PO DAILY 05/12/23 02/01/25 01/31/25 [id number] 18 mg iron-800 mcg-150 mg tablet (Vitamin D3 Complete) nitroglycerin 0.3 mg sublingual 0.3 mg sublingual UD PRN Chest Pain 05/20/23 02/01/25 01/31/25 tablet polyethylene glycol 3350 17 gram 17 g PO DAILY PRN constipation 05/20/23 02/01/25 01/31/25 oral powder packet (Miralax) pantoprazole 40 mg tablet,delayed 40 mg PO QAM #90 tabs 06/08/23 02/01/25 01/31/25 release lactobacillus combination no.4 3 3,000 mmu cells PO DAILY 09/12/24 02/01/25 01/31/25 billion cell capsule (Probiotic) Active Medications Generic Name Dose Route Start Last Admin Trade Name Freq PRN Reason Stop Dose Admin Acetaminophen 650 mg 02/01/25 20:26 02/04/25 20:29 Acetaminophen 325 Mg Tab PO 03/03/25 20:25 650 mg Q4H PRN Administration pain/fever Aspirin 81 mg 02/02/25 09:00 02/05/25 10:10 Aspirin 81 Mg Ectab PO 03/04/25 08:59 81 mg DAILY [facility] Administration Enoxaparin Sodium 40 mg 02/02/25 09:00 02/04/25 08:27 Enoxaparin Inj 40 Mg/0.4 Ml Syr SQ 03/04/25 08:59 40 mg QAM [facility] Administration Fluoxetine HCl 40 mg 02/01/25 21:00 02/04/25 20:30 Fluoxetine Hcl 20 Mg Cap PO 03/03/25 20:59 40 mg HS [facility] Administration Cefepime HCl 2,000 mg in 20 mls @ 5 mls/min 02/05/25 12:00 02/05/25 11:32 Maxipime 2000mg IV 02/15/25 11:59 5 mls/min Q8H [facility] Administration Insulin Aspart 0 units 02/05/25 06:00 02/05/25 05:39 Insulin Aspart Per Unit Charge SC 03/07/25 05:59 Not Given Q6 [facility] Insulin Glargine 15 units 02/04/25 09:00 02/05/25 11:31 Lantus Per Unit Charge SC 03/05/25 08:59 Not Given DAILY [facility] Levothyroxine Sodium 88 mcg 02/02/25 09:00 02/05/25 10:10 Levothyroxine Sodium 88 Mcg Tablet PO 03/04/25 08:59 88 mcg QAM [facility] Administration Lidocaine 1 patch 02/04/25 13:15 02/05/25 10:09 Lidocaine 5% 1 Patch TD 03/06/25 13:14 1 patch QAM [facility] Administration Magnesium Oxide 400 mg 02/01/25 21:00 02/05/25 10:10 Magnesium Oxide 400 Mg Tab PO 03/03/25 20:59 400 mg BID [facility] Administration Miscellaneous 1 each 02/01/25 21:00 02/04/25 20:31 Remove Lidoderm Patch N/A 03/03/25 20:59 1 each DAILY@2100 [facility] Administration Miscellaneous 1 each 02/04/25 21:00 02/04/25 20:31 Remove Lidoderm Patch N/A 03/06/25 20:59 1 each DAILY@2100 [facility] Administration Pantoprazole Sodium 40 mg 02/02/25 09:00 02/05/25 10:10 Pantoprazole 40 Mg Tab PO 03/04/25 08:59 40 mg QAM [facility] Administration Simvastatin 40 mg 02/02/25 09:00 02/05/25 10:10 Simvastatin 40 Mg Tab PO 03/04/25 08:59 40 mg DAILY [facility] Administration Tamsulosin HCl 0.4 mg 02/02/25 09:00 02/05/25 10:10 Tamsulosin Hcl 0.4 Mg Cap PO 03/04/25 08:59 0.4 mg DAILY [facility] Administration Tramadol HCl 50 mg 02/04/25 13:10 02/05/25 05:07 Tramadol Hcl 50 Mg Tablet PO 03/06/25 13:59 50 mg Q8 PRN Administration Mod-Sev Pain (Scale 4-10) NPO Date Last Intake of Fluids: 02/05/25 Time Last Intake of Fluids: 10:10 Last Intake of Fluids Comment: with meds sip water Date Last Intake of Solids: 02/04/25 Time Last Intake of Solids: 17:00 Last Intake of Solids Comment: Greater then 8 hrs Past Medical History Medical History Dizziness Diabetes mellitus, type 2 Depression Hx of melanoma of skin Acute pancreatitis Hospitalized 03/2023 > acute kidney/liver failure Borderline hyperlipidemia Poor historian phone interview done by pts daughter History of COVID-19 11/16- congestion > resolved 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 Hood Enlarged prostate Diabetes TIA (transient ischemic attack) x2, Most recent 8+ years ago- residual problems with taking longer to process info Exercise / Class Metabolic Activity III < 4 Walking/Shop/Light housework Past Surgical History Surgical History H/O umbilical hernia repair (05/16/23) p Laparoscopic Cholecystectomy(Not Applicable) - Deepak Pickering DO s and Open Umbilical Hernia Repair(Not Applicable) - Deepak Pickering DO Hx laparoscopic cholecystectomy (05/16/23) p Laparoscopic Cholecystectomy(Not Applicable) - Deepak Pickering DO s and Open Umbilical Hernia Repair(Not Applicable) - Deepak Pickering DO Family history of reaction to anesthesia daughter > post-op nausea History of esophagogastroduodenoscopy (EGD) History of ERCP + stent (plans for removal after lap [place]) S/P colonoscopy S/P hernia repair inguinal Past Anesthesia History No Hx of Anesthesia Complications History of PONV No Hx of PONV and No Hx of Motion Sickness Social History Smoking Status: Never smoker tobacco type: smokeless tobacco Smoking cigarettes per day: quit smoking 40+ years Do You Dip or Chew Tobacco: Yes Hx Alcohol Use: No Alcohol type: beer alcohol intake frequency: holidays/special occasions only Hx Substance Use: No substance use type: does not use Physical Exam Vital Signs Last Vital Signs Temp 36.8 C 02/05/25 11:54 Pulse 73 02/05/25 11:54 Resp 18 02/05/25 11:54 BP 119/76 02/05/25 11:54 Pulse Ox 95 02/05/25 11:54 O2 Del Method Room Air 02/05/25 11:54 O2 Flow Rate 2 02/01/25 13:18 Constitutional no acute distress ENMT Mouth: + dentition abnormality Thyromental Distance: > or= 3.5 Finger Breadths Mallampati Class: II Mouth / Teeth: 2 1. chipped teeth Neck normal visual inspection Respiratory normal respiratory effort Auscultation: + diminished lung sounds Cardiovascular Rate/Rhythm: regular rate and regular rhythm Neurologic moves all extremities Psychiatric Orientation: alert and oriented x 3 Daughter to sign consent Testing Laboratory Results 02/05/25 10:42 02/01/25 13:14 Hemoglobin A1c 8.8 % (4.5-5.6) H 02/03/25 07:07 Urine Color Yellow 02/01/25 17:14 Urine Appearance Clear (Clear) 02/01/25 17:14 Urine pH 5.0 (4.5-7.5) 02/01/25 17:14 Ur Specific [place] > 1.045 (1.000-1.030) H 02/01/25 17:14 Urine Protein Negative (Negative) 02/01/25 17:14 Urine Glucose (UA) 3+ (Negative) H 02/01/25 17:14 Urine Ketones 1+ (Negative) H 02/01/25 17:14 Urine Nitrite Negative (Negative) 02/01/25 17:14 Ur Leukocyte Esterase Negative (Negative) 02/01/25 17:14 02/03/25 Unknown Gram Stain - Final Abdomen, Right Lower Quadrant Aerobic and Anaerobic Culture - Preliminary Klebsiella aerogenes Streptococcus anginosus 02/03/25 15:06 Aerobic Blood Culture - Preliminary Blood No growth in Aerobic bottle after 24 hours. Anaerobic Blood Culture - Preliminary No growth in Anaerobic bottle after 24 hours. 02/03/25 15:06 Aerobic Blood Culture - Preliminary Blood No growth in Aerobic bottle after 24 hours. Anaerobic Blood Culture - Preliminary No growth in Anaerobic bottle after 24 hours. 02/05/25 02/05/25 11:50 05:24 POC Glucose 151 H 133 H
[2025-02-05] MEDS: metroNIDAZOLE 500 MG/100 ML BAG IV SCH (13:04)
[2025-02-05] MEDS: BUPIVACAINE/EPINEPHRINE 0.25% 1:200,000 30 ML VIAL ONE (13:25)
[2025-02-05] MEDS ORDERED: SUGAMMADEX SODIUM 200 MG/2 ML VIAL IV ONE (13:36)
--- NOTE | 2025-02-05 13:37 | Post Operative Brief Note ---
PG Immediate Post Op with CF Date of Surgery February 05, 2025 Pre & Post Diagnosis Operation Date: 02/05/25 12:20 Pre-Op Diagnosis: Right abdominal pain, concern for retained gallstone Post-Op Diagnosis: Right abdominal pain, abdominal wall abscess I identified the patient and participated in the time-out.: Yes Procedure Operation Date: 02/05/25 12:20 Actual Procedures p Diagnostic Laparoscopy, lysis of adhesions, laparoscopic drainage of abdominal wall Abscess(Not Applicable) - Deepak Pickering DO Surgeon Deepak Pickering DO Manager User Interface Diana Laguerre PA-C Estimated Blood Loss 10 Findings See Below Dense omental adhesions to the RUQ Abdominal wall abscess in the RUQ abdominal/chest wall No gallstones identified Anesthesia Type General Complications none Disposition Disposition: Recovery Room
--- NOTE | 2025-02-05 13:43 | Operative Report ---
PG Post Operative Report Pre & Post Diagnosis Operation Date: 02/05/25 12:20 Pre-Op Diagnosis: Right abdominal pain, concern for retained gallstone Post-Op Diagnosis: Right abdominal pain, abdominal wall abscess I identified the patient and participated in the time-out.: Yes Procedure Operation Date: 02/05/25 12:20 Actual Procedures p Diagnostic Laparoscopy, laparoscopic lysis of adhesions, laparoscopic Drainage of abdominal wall Abscess(Not Applicable) - Deepak Pickering DO Surgeon Deepak Pickering DO Clerical Methods Analyst Diana Laguerre PA-C Estimated Blood Loss 10 Findings See Below Dense omental adhesions to the RUQ Abdominal wall abscess in the RUQ abdominal/chest wall No gallstones identified Fluids see anesthesia record Specimens None Drains None Anesthesia Type General Complications none Disposition Disposition: Recovery Room Indications 74 yo male s/p laparoscopic cholecystectomy April 2023, now with right sided abdominal pain and abdominal wall abscess and concern for retained gallstone Description of Procedure The patient was brought to the operating room and placed in the supine position with both arms extended. At this time he underwent general endotracheal anesthesia without any problems. He was given appropriate pre-operative antibio tics. His abdomen was prepped and draped in the usual sterile fashion. A timeout was called, the procedure was verified as Diagnostic laparoscopy, possible drainage of intraabdominal abscess, possible removal of retained gallstones. Surgical, nursing and anesthesia teams agreed and the procedure was begun. After injection of 0.25% Marcaine with epinephrine, a supraumbilical vertical incision was made and carried down to the fascia using S-retractors. The abdominal wall was then elevated with towel clamps and abdomen entered using the Veress needle confirming position using the saline drop test. Pneumoperitoneum was established. 5mm trocar was placed. Laparoscope was introduced. No injury from entry into the abdomen was visualized after inspection of the abdomen. Two further ports were placed under direct visualization. One 5mm in the subxiphoid region and one 5mm in the midline between the two previous ports. At this time the abdomen was inspected and there were dense omental adhesions to the RUQ. These were lysed using scissors and then bluntly from the abdominal wall more laterally. There was a bulge within the abdominal wall in the RUQ. A laparoscopic needle was placed in this and purulent fluid was aspirated. We then opened up the peritoneum at this site and a moderate amount of purulent fluid was expressed from the abdominal wall. The cavity was irrigated with a copious amount of warm saline. No gallstones were identified within the cavity. The rest of the abdomen was inspected and appeared without any abnormalities. The trocars were then removed under direct visualization and no bleeding was present. Abdomen was desufflated. The skin was then closed using 4-0 Monocryl in a subcuticular fashion. Surgical glue was applied. Needle and sponge counts were correct x 2. At this time the patient was awoken from anesthesia and extubated having remained stable throughout the entire case. The patient was then transported to PACU in stable condition. The physician visitor services assistant was present and scrubbed for the entire. She was essential in positioning, prepping and draping the patient, driving the laparoscope, closure of the incisions and placement of the dressings. I attest to the content of the Intraoperative Record and any orders documented therein. Any exceptions are noted below.
[2025-02-05] MEDS: LR 15ML/HR IV SCH (13:50)
[2025-02-05 14:33] LABS: BUN Creatinine Ratio 18.7 (10-20); Calcium 8.4 mg/dl (8.6-10.3); Creatinine Clr Calc Pharmacy 78.2 ml/min; Potassium 3.8 mmol/L (3.5-5.1)
--- NOTE | 2025-02-05 14:58 | Anesthesiology Progress Note ---
Date of Service February 05, 2025 Anesthesia Post Procedure Vital Signs Vital Signs: Temp Pulse Pulse Resp BP BP Pulse Ox 02/05/25 14:40 78 15 110/74 94 02/05/25 14:30 36.4 C L 76 22 106/62 94 02/05/25 14:20 76 19 109/69 92 02/05/25 14:10 77 20 104/66 93 02/05/25 14:00 75 21 109/68 93 02/05/25 13:50 76 21 118/69 96 02/05/25 13:49 36.0 C L 76 25 H 123/72 96 02/05/25 11:54 36.8 C 73 18 119/76 95 02/05/25 08:01 36.7 C 74 16 117/77 93 02/04/25 19:03 36.6 C 71 18 126/81 91 O2 Del Method O2 Flow Rate 02/05/25 14:40 Nasal Cannula 2 02/05/25 14:30 Nasal Cannula 2 02/05/25 14:20 Oxymask 2 02/05/25 14:10 Oxymask 4 02/05/25 14:00 Oxymask 4 02/05/25 13:50 Oxymask 4 02/05/25 13:49 Oxymask 4 02/05/25 11:54 Room Air 02/05/25 08:01 Room Air 02/04/25 19:03 Room Air Pain Intensity Right Flank: Pain Intensity: 5 Transfer of Care Handoff Completed per policy Notes Mental Status: alert / awake / arousable Patient Amnestic to Procedure: Yes Nausea / Vomiting: adequately controlled Pain: adequately controlled Airway Patency, RR, SpO2: stable & adequate BP & HR: stable & adequate Hydration State: stable & adequate Anesthetic Complications: no major complications apparent and Pt Satisfied with anesthetic care
[2025-02-05] MEDS ORDERED: oxyCODONE HCL IR 5 MG TAB (IMMEDIATE RELEASE) PO PRN (17:05)
[2025-02-05] MEDS: oxyCODONE HCL IR 5 MG TAB (IMMEDIATE RELEASE) PO PRN (17:48)
--- NOTE | 2025-02-05 18:13 | Hospitalist Progress Note ---
Date of Service February 05, 2025 Assessment & Plan (1) Right-sided chest wall pain: (2) Hypoxia: Plan 74-year-old male who was diagnosed with a fluid collection adjacent to the right eighth and ninth rib on 01/29/25 in the emergency room and was asked to follow-up with PCP for outpatient biopsy. However a biopsy could not be arranged and the patient was asked to come back to the emergency room. He returned with increasing pain at the site and was noted to be slightly hypoxic in the emergency room. Patient was not started on any antibiotics on admission as there was no fever or elevated white count and to get a non skewed biopsy finding. #Abdominal wall abscess Fluid collection adjacent to right eighth and ninth ribs Recent CT abdomen showed the fluid collection CT angio of the chest was done on admission. Official report does not mention the fluid collection but it was seen on the images Biopsy completed 02/03 showed purulent discharge with culture growing Klebsiella aerogenes and Streptococcus anginosus Started Cefepime 2 g IV q8h and Flagyl 500 mg IV q8h based on culture results; Zosyn discontinued Diagnostic laparoscopy with lysis of adhesions, laparoscopic drainage of abdominal wall abscess with Dr. Pickering on 02/05. EBL 10 cc, no complications noted, no gallstones identified #Hypoxia Now resolved. Most likely the hypoxia was because of pain at the right lower ribs caused by deep inspiration. No shortness of breath at rest, peripheral edema. Nothing to suggest CHF or pneumonia Chest CT did not show fluid congestion BNP was only mildly elevated Continue incentive spirometer #Recent right humerus fracture Patient requested orthopedics consult since he was supposed to follow-up with orthopedics outpatient On-call orthopedic surgeon will inform Dr. Pantoja to see the patient while admitted #History of CVA Continue aspirin Hold Plavix until cleared to resume by surgical team Heart healthy diet #Hyperlipidemia Continue simvastatin #BPH Continue tamsulosin #Egy-vwoplvi-adjjyphac diabetes mellitus type 2 Ordered a sliding scale insulin Hold metformin Diabetic diet #Hypothyroidism Continue levothyroxine #Anxiety/depression Continue fluoxetine #GERD Continue Protonix DVT prophylaxis: Lovenox CODE STATUS: DNR/DNI Family members updated at bedside Discussed antibiotics with pharmacy Adjusted antibiotics Admission and Anticipated Discharge Date Admission Date: February 01, 2025 Supervising Physician Co-Signing Physician Notes chart reviewed, case d/w S Jane LEONE Subjective Patient seen and evaluated at bedside with 2 family members present. He reports ongoing right-sided abdominal pain. He denies any other complaints or concerns at this time. He is to go down to the OR shortly for surgical intervention. Physical Exam Physical Exam: General: No acute distress, nondiaphoretic, well-developed, well-nourished. Cardiac: Regular rate and rhythm without murmurs gallops or rubs. Pulm: Clear to auscultation bilaterally without wheezes, rales or rhonchi. Normal respiratory effort. 95% on room air. Abdominal: Soft, nondistended. Right-sided flank tenderness and pain with palpation near right sided eighth and ninth ribs. Neuro: A&O x3. No focal neurological deficits. Results & Data Results & Data Vital Signs (Past 12 Hours) Vital Signs Temp Pulse Pulse Resp BP Pulse Ox O2 Del Method 02/05/25 17:07 97.5 F L 82 16 119/79 96 Nasal Cannula 02/05/25 16:35 98.2 F 79 15 113/68 96 Nasal Cannula 02/05/25 15:32 97.9 F 79 16 112/72 94 Nasal Cannula 02/05/25 14:59 97.8 F 77 16 109/73 94 Nasal Cannula 02/05/25 14:40 78 15 110/74 94 Nasal Cannula 02/05/25 14:30 97.5 F L 76 22 106/62 94 Nasal Cannula 02/05/25 14:20 76 19 109/69 92 Oxymask 02/05/25 14:10 77 20 104/66 93 Oxymask 02/05/25 14:00 75 21 109/68 93 Oxymask 02/05/25 13:50 76 21 118/69 96 Oxymask 02/05/25 13:49 96.8 F L 76 25 H 123/72 96 Oxymask 02/05/25 11:54 98.2 F 73 18 119/76 95 Room Air 02/05/25 08:01 98.1 F 74 16 117/77 93 Room Air O2 Flow Rate 02/05/25 17:07 2 02/05/25 16:35 2 02/05/25 15:32 2 02/05/25 14:59 2 02/05/25 14:40 2 02/05/25 14:30 2 02/05/25 14:20 2 02/05/25 14:10 4 02/05/25 14:00 4 02/05/25 13:50 4 02/05/25 13:49 4 02/05/25 11:54 02/05/25 08:01 Laboratory Results Reviewed CBC Reviewed BMP Reviewed culture Diagnostic Findings Reviewed operative report PG Care Time/CCT Total # of Minutes Spent Total Time Spent with Patient: Total time spent is greater than 50% in coordination of care (as documented) at patient's floor/unit and/or counseling patient: Coding Level of Care Code 93401 SUB INP/OBS CARE 3/50MIN Diagnoses Right-sided chest wall pain R07.89 Hypoxia R09.02
[2025-02-05] MEDS: Nursing to Pharmacy Communication SCH (18:48)
[2025-02-05] MEDS: LANTUS PER UNIT CHARGE SC SCH (21:18)
[2025-02-06 06:59] LABS: Basophils # (auto) 0.02 K/uL (0.00-0.20); Basophils % (auto) 0.2 %; Eosinophils # (auto) 0.03 K/uL (0.00-0.50); Eosinophils % (auto) 0.3 %; Hematocrit (blood only) 33.5 % (42.0-52.0); Hemoglobin 11.2 g/dl (14.0-18.0); Immature Granulocytes # (auto) 0.04 K/uL (0.01-0.20); Immature Granulocytes % (auto) 0.4 %; Lymphocytes # (auto) 1.17 K/uL (1.20-3.40); Mean Corpuscular Hemoglobin 29.2 pg (25.0-34.0); Mean Corpuscular Hgb Conc 33.4 g/dL (32.0-36.0); Mean Corpuscular Volume 87.5 fL (80.0-100.0); Mean Platelet Volume 8.9 fL (9.4-12.4); Monocytes # (auto) 0.55 K/uL (0.11-0.59); Monocytes % (auto) 5.7 %; Neutrophils % (auto) 81.4 %; Platelet Count 290 K/uL (130-400); RDW Coefficient of Variation 15.3 % (11.5-14.5); RDW Standard Deviation 48.6 fL (36.4-46.3); Red Blood Count 3.83 M/uL (4.70-6.10); White Blood Count 9.71 K/ul (4.8-10.8)
--- NOTE | 2025-02-06 10:40 | Surgery Progress Note ---
Date of Service February 06, 2025 Assessment & Plan (1) Abdominal wall abscess: Plan: POD 1 Diagnostic Laparoscopy, lysis of adhesions, Drainage of abdominal Abscess Dr Pickering Pt c/o abd discomfort , TTP throughout , denies asking for pain medication, encouraged patient to report pain to nurses, he states he is " ok ", education given. Last documented dose of pain medication was yesterday. Pt does have a lidocaine patch to Right side abd. Port sites with dermabond CDI , no s/s infection noted tolerating diet WBC 9.7, afebrile , VSS IS Q1hr while awake May resume plavix on Monday02/08/25 Patient will need a course of oral abx on d/c He can follow up in our office with Dr Pickering in 1-2 weeks Admission and Anticipated Discharge Date Admission Date: February 01, 2025 Subjective pt reports post surgical discomfort denies f/c , n/v , +flatus Review of Systems Constitutional: no fever and no chills Respiratory: no dyspnea Cardiovascular: no chest pain Gastrointestinal: + abdominal pain; no nausea and no vomit ing Physical Exam Constitutional: cooperative and comfortable; no acute distress Respiratory: normal respiratory effort and able to speak in complete sentences; no respiratory distress Cardiovascular: Rate/Rhythm: regular rate Gastrointestinal (Abdomen): Inspection/Auscultation: + abdominal surgical incision (CDI dermabond ) Percussion/Palpation: + abdomen tender and abdomen soft Results & Data Vital Signs (Past 12 Hours) Vital Signs Temp Pulse Resp BP BP Pulse Ox O2 Del Method 02/06/25 09:16 92 Room Air 02/06/25 07:00 97.7 F 70 16 119/75 97 Nasal Cannula 02/06/25 03:00 97.8 F 70 18 126/80 94 Nasal Cannula 02/05/25 23:19 Nasal Cannula 02/05/25 23:00 97.9 F 77 18 114/76 91 Nasal Cannula O2 Flow Rate 02/06/25 09:16 02/06/25 07:00 1 02/06/25 03:00 2 02/05/25 23:19 2 02/05/25 23:00 2 Results CBC w Diff Results: RBC 3.83 M/uL (4.70-6.10) L 02/06/25 WBC 9.71 K/ul (4.8-10.8) 02/06/25 Hgb 11.2 g/dl (14.0-18.0) L 02/06/25 Hct 33.5 % (42.0-52.0) L 02/06/25 MCV 87.5 fL (80.0-100.0) 02/06/25 MCH 29.2 pg (25.0-34.0) 02/06/25 MCHC 33.4 g/dL (32.0-36.0) 02/06/25 RDW Standard Deviation 48.6 fL (36.4-46.3) H 02/06/25 RDW Coefficient of Variation 15.3 % (11.5-14.5) H 02/06/25 Plt Count 290 K/uL (130-400) 02/06/25 MPV 8.9 fL (9.4-12.4) L 02/06/25 Neutrophils (%) (Auto) 81.4 % 02/06/25 Lymphocytes (%) (Auto) 12.0 % 02/06/25 Monocytes # (Auto) 0.55 K/uL (0.11-0.59) 02/06/25 Eosinophils # (Auto) 0.03 K/uL (0.00-0.50) 02/06/25 Immature Granulocyte % (Auto) 0.4 % 02/06/25 Neutrophils # (Auto) 7.90 K/uL (1.40-6.50) H 02/06/25 Lymphocytes # (Auto) 1.17 K/uL (1.20-3.40) L 02/06/25 Monocytes # (Auto) 0.55 K/uL (0.11-0.59) 02/06/25 Eosinophils # (Auto) 0.03 K/uL (0.00-0.50) 02/06/25 Basophils # (Auto) 0.02 K/uL (0.00-0.20) 02/06/25 Immature Granulocyte # (Auto) 0.04 K/uL (0.01-0.20) 5 Polychromasia 1+ 03/31/23 Echinocytes 2+ 03/31/23 Tear Drop Cells 1+ 09/12/24 Dohle Bodies 1+ 03/31/23 PG Care Time/CCT Total # of Minutes Spent Total Time Spent with Patient: Total time spent is greater than 50% in coordination of care (as documented) at patient's floor/unit and/or counseling patient: Coding Level of Care Code 42425 Post Operative Follow-Up Diagnoses Abdominal wall abscess L02.211
--- NOTE | 2025-02-06 11:39 | Pharmacy Report ---
Pharmacy Glycemic Short Note 2 - Date of Service February 06, 2025 - Glycemic Short BSG Results (Last 24 hours): 02/05/25 02/05/25 02/05/25 10:45 11:50 13:53 Glucose 149 H POC Glucose 151 H 151 H 02/05/25 02/05/25 02/06/25 17:09 20:20 07:40 Glucose POC Glucose 191 H 171 H 128 H 02/06/25 11:23 Glucose POC Glucose 165 H OUTPATIENT ANTIDIABETIC REGIMEN: * metformin 1000mg po BID HbA1c: 8.8% (02/03/25) ASSESSMENT: 02/06: * Payam received 20 units of insulin yesterday (15 were basal), he was NPO for the majority of the day due laparoscopy/drainage of abdominal abscess * Fasting BSG in goal range times two days, will aim to continue with the same amount of basal insulin * Antibiotics adjusted to cefepime/Flagyl, otherwise stressors are stable. * No changes to NovoLog at this time. 02/04/25: * Blood sugars elevated yesterday, ranging 164-248 mg/dL w/ fasting blood glucose of 225 mg/dL this morning * Received 34 units of insulin (10 units of basal and 24 units of pr andial/correctional bolus) * Patient is NPO after midnight tonight for diagnostic laparoscopy w/ possible drainage of intra-abdominal abscess/removal of retained gallstones * Current Novolog regimen is already fairly aggressive so will not further intensify today since will be NPO again tonight 02/03: * Payam received 40 units of insulin yesterday, 10 of which were basal. BSGs were: 340-760-914-287 mg/dL. * Fasting BSG this AM is elevated at 231 mg/dL. Patient is currently NPO for possible IR guided biopsy. Uncertain if this will be done today. Will increase basal today. * Novolog was already administered this morning but will tighten both correction factor and carb ratio starting with lunch. 02/02: * 74 year old male admitted 02/01 with right-sided chest wall pain and hypoxia. Pharmacy has been consulted for glycemic management while he is admitted. * BSG was 314mg/dL on admit. He was given 6 units of iv regular insulin and then was started on a weight based bolus insulin regimen with a stress of 2. * Fasting BSG was 250mg/dL this morning. Lantus 10units SQ x 1 was given and the parameters of the bolus insulin were tightened starting with lunch today. PLAN FOR INPATIENT GLYCEMIC CONTROL: * Hold outpatient oral diabetes medications * Basal insulin * Lantus 10 units SC qAM * Lantus 5-10 units SC HS (see eMAR for additional details) * Bolus insulin * NovoLog per scale ACHS or Q6hrs while NPO * Goal Range: Low 110 mg/dL - High 140 mg/dL * Correction Factor: 20 mg/dL/unit * Nutritional / Prandial insulin per carb ratio of 1 unit per 6 grams CHO consumed
--- NOTE | 2025-02-06 13:23 | Hospitalist Progress Note ---
Date of Service February 06, 2025 Assessment & Plan (1) Right-sided chest wall pain: (2) Hypoxia: Plan 74-year-old male who was diagnosed with a fluid collection adjacent to the right eighth and ninth rib on 01/29/25 in the emergency room and was asked to follow-up with PCP for outpatient biopsy. However a biopsy could not be arranged and the patient was asked to come back to the emergency room. He returned with increasing pain at the site and was noted to be slightly hypoxic in the emergency room. Patient was not started on any antibiotics on admission as there was no fever or elevated white count and to get a non skewed biopsy finding. #Abdominal wall abscess Fluid collection adjacent to right eighth and ninth ribs Recent CT abdomen showed the fluid collection CT angio of the chest was done on admission. Official report does not mention the fluid collection but it was seen on the images Biopsy completed 02/03 showed purulent discharge with culture growing Klebsiella aerogenes and Streptococcus anginosus Downgraded antibiotics to Ceftriaxone 2 g IV, discontinued Cefepime IV and Flagyl IV. Will need to transition to PO antibiotics on discharge Diagnostic laparoscopy with lysis of adhesions, laparoscopic drainage of abdominal wall abscess with Dr. Pickering on 02/05. EBL 10 cc, no complications noted, no gallstones identified KUB obtained due to firm abdomen, without evidence of SBO but noted stool burden. Suppository ordered by surgical team #Hypoxia Now resolved. Most likely the hypoxia was because of pain at the right lower ribs caused by deep inspiration. No shortness of breath at rest, peripheral edema. Nothing to suggest CHF or pneumonia Chest CT did not show fluid congestion BNP was only mildly elevated Continue incentive spirometer #Recent right humerus fracture Patient requested orthopedics consult since he was supposed to follow-up with orthopedics outpatient On-call orthopedic surgeon will inform Dr. Pantoja to see the patient while admitted #History of CVA Continue aspirin Hold Plavix until cleared to resume by surgical team Heart healthy diet #Hyperlipidemia Continue simvastatin #BPH Continue tamsulosin #Sbq-pszablf-bdbhjelyn diabetes mellitus type 2 Ordered a sliding scale insulin Hold metformin Diabetic diet school vocational educator recommended the following: Prescriptions needed at discharge: One Touch Verio meter, One Touch Verio test strips to check 1X/day, One Touch Delica lancetsto check 1X/day. Use ICD- 10 E11.9 for insurance coverage Recommend drinking milk only with meals, drinking fair life milk instead for higher protein/lower carb content #Hypothyroidism Continue levothyroxine #Anxiety/depression Continue fluoxetine #GERD Continue Protonix DVT prophylaxis: Lovenox CODE STATUS: DNR/DNI Discussed antibiotic recommendations and exam findings with general surgery Discussed DM regimen and recommendations with environmental educator Admission and Anticipated Discharge Date Admission Date: February 01, 2025 Supervising Physician Co-Signing Physician Notes chart reviewed, case d/w S Jane LEONE Subjective Patient seen and evaluated at bedside. He reports feeling well, and denies any abdominal pain. He reports a good appetite and has been well tolerating his diet. He denies passing gas or having a BM yet. Upon inspection of his abdomen, he is distended. Bowel sounds present. Firm abdomen but not rigid, tender to palpation throughout abdomen. No additional complaints or concerns at this time. Physical Exam Physical Exam: General: No acute distress, nondiaphoretic, well-developed, well-nourished. Cardiac: Regular rate and rhythm without murmurs gallops or rubs. Pulm: Clear to auscultation bilaterally without wheezes, rales or rhonchi. Normal respiratory effort. 92% on room air. Abdominal: Firm but not rigid. Distended. Tender to palpation throughout abdomen. Surgical sites covered in Dermabond, no signs of infection. Neuro: A&O x3. No focal neurological deficits. Results & Data Results & Data Vital Signs (Past 12 Hours) Vital Signs Temp Pulse Resp BP BP Pulse Ox O2 Del Method 02/06/25 09:16 92 Room Air 02/06/25 08:00 Nasal Cannula 02/06/25 07:00 97.7 F 70 16 119/75 97 Nasal Cannula 02/06/25 03:00 97.8 F 70 18 126/80 94 Nasal Cannula O2 Flow Rate 02/06/25 09:16 02/06/25 08:00 1 02/06/25 07:00 1 02/06/25 03:00 2 Laboratory Results Reviewed CBC with differential Diagnostic Findings Reviewed KUB PG Care Time/CCT Total # of Minutes Spent Total Time Spent with Patient: Total time spent is greater than 50% in coordination of care (as documented) at patient's floor/unit and/or counseling patient: Coding Level of Care Code 92502 SUB INP/OBS CARE 3/50MIN Diagnoses Right-sided chest wall pain R07.89 Hypoxia R09.02
--- NOTE | 2025-02-06 14:13 | XRay Report ---
KUB HISTORY: r/o SBO COMPARISON STUDY: 04/04/2023 FINDINGS: Supine view of the abdomen demonstrates a nonspecific bowel gas pattern. There is no eviden ce of obstruction. There is a prominent stool burden in the right colon and rectosigmoid. IMPRESSION: No evidence of small bowel obstruction. ACT 112: Negative or not required by law. The above report was generated using voice recognition software. It may contain grammatical, syntax o r spelling errors. Electronically signed by: Elysia Rosales M.D. 02/06/2025 2:11 PM
[2025-02-06] MEDS ORDERED: bisacodyL 10 MG SUPP PR PRN (15:21)
--- NOTE | 2025-02-06 15:34 | Communication Note ---
Date of Service: February 06, 2025 Patient revisited at bedside with STEVEN Arora ordered for abdominal distention showing no concerns for SBO/ileus, but noted stool burden. Ordered suppository. Pt in NAD, VSS, denies n/v, voiding without difficulty.
[2025-02-06] MEDS: bisacodyL 10 MG SUPP PR STA (15:36)
[2025-02-06] MEDS: LANTUS PER UNIT CHARGE SC SCH (21:22)
[2025-02-07 08:07] LABS: Basophils # (auto) 0.01 K/uL (0.00-0.20); Basophils % (auto) 0.1 %; Eosinophils # (auto) 0.02 K/uL (0.00-0.50); Eosinophils % (auto) 0.2 %; Hematocrit (blood only) 32.6 % (42.0-52.0); Hemoglobin 10.6 g/dl (14.0-18.0); Immature Granulocytes # (auto) 0.06 K/uL (0.01-0.20); Immature Granulocytes % (auto) 0.7 %; Lymphocytes # (auto) 0.89 K/uL (1.20-3.40); Mean Corpuscular Hemoglobin 28.7 pg (25.0-34.0); Mean Corpuscular Hgb Conc 32.5 g/dL (32.0-36.0); Mean Corpuscular Volume 88.3 fL (80.0-100.0); Mean Platelet Volume 8.8 fL (9.4-12.4); Monocytes # (auto) 0.58 K/uL (0.11-0.59); Monocytes % (auto) 7.2 %; Neutrophils # (auto) 6.52 K/uL (1.40-6.50); Neutrophils % (auto) 80.8 %; Platelet Count 275 K/uL (130-400); RDW Coefficient of Variation 15.2 % (11.5-14.5); RDW Standard Deviation 49.1 fL (36.4-46.3); Red Blood Count 3.69 M/uL (4.70-6.10); White Blood Count 8.08 K/ul (4.8-10.8)
[2025-02-07] MEDS: cefTRIAXone SODIUM 2,000 MG/50 ML BAG IV SCH (08:15)
[2025-02-07] MEDS: LANTUS PER UNIT CHARGE SC SCH (08:17)
--- NOTE | 2025-02-07 10:11 | Pharmacy Report ---
Pharmacy Glycemic Short Note 2 - Date of Service February 07, 2025 - Glycemic Short BSG Results (Last 24 hours): 02/06/25 02/06/25 02/06/25 11:23 16:48 20:42 POC Glucose 165 H 174 H 159 H 02/07/25 07:54 POC Glucose 121 H OUTPATIENT ANTIDIABETIC REGIMEN: * metformin 1000mg po BID HbA1c: 8.8% (02/03/25) ASSESSMENT: 02/07: * Payam received 46 units of insulin yesterday (20 units were basal) * Fasting BSG this AM within goal range, continue current basal regimen, will move to once daily in the AM. * No changes to NovoLog at this time, antibiotics switched to just ceftriaxone. 02/06: * Payam received 20 units of insulin yesterday (15 were basal), he was NPO for the majority of the day due laparoscopy/drainage of abdominal abscess * Fasting BSG in goal range times two days, will aim to continue with the same amount of basal insulin * Antibiotics adjusted to cefepime/Flagyl, otherwise stressors are stable. * No changes to NovoLog at this time. 02/04/25: * Blood sugars elevated yesterday, ranging 164-248 mg/dL w/ fasting blood glucose of 225 mg/dL this morning * Received 34 units of insulin (10 units of basal and 24 units of prandial/correctional bolus) * Patient is NPO after midnight tonight for diagnostic laparoscopy w/ possible drainage of intra-abdominal abscess/removal of retained gallstones * Current Novolog regimen is already fairly aggressive so will not further intensify today since will be NPO again tonight 02/03: * Payam received 40 units of insulin yesterday, 10 of which were basal. BSGs were: 364-129-388-287 mg/dL. * Fasting BSG this AM is elevated at 231 mg/dL. Patient is currently NPO for possible IR guided biopsy. Uncertain if this will be done today. Will increase basal today. * Novolog was already administered this morning but will tighten both correction factor and carb ratio starting with lunch. 02/02: * 74 year old male admitted 02/01 with right-sided chest wall pain and hypoxia. Pharmacy has been consulted for glycemic management while he is admitted. * BSG was 314mg/dL on admit. He was given 6 units of iv regular insulin and then was started on a weight based bolus insulin regimen with a stress of 2. * Fasting BSG was 250mg/dL this morning. Lantus 10units SQ x 1 was given and the parameters of the bolus insulin were tightened starting with lunch today. PLAN FOR INPATIENT GLYCEMIC CONTROL: * Hold outpatient oral diabetes medications * Basal insulin * Lantus 20 units SC qAM * Bolus insulin * NovoLog per scale ACHS or Q6hrs while NPO * Goal Range: Low 110 mg/dL - High 140 mg/dL * Correction Factor: 20 mg/dL/unit * Nutritional / Prandial insulin per carb ratio of 1 unit per 6 grams CHO consumed
--- NOTE | 2025-02-07 10:33 | Surgery Progress Note ---
Date of Service February 07, 2025 Assessment & Plan (1) Abdominal wall abscess: Plan: Not seeing much improvement clinically status post internal drainage. Unclear to me what the swelling is. We will obtain a CT scan and make recommendations accordingly. He is certainly not ready for discharge. Dr. Capps covering for weekend Admission and Anticipated Discharge Date Admission Date: February 01, 2025 Subjective Patient seen. He continues to complain of right sided/flank pain. Comfortable while motionless but gets pain with any movement Physical Exam Physical Exam: Alert. No acute distress His incisions are all healing nicely He does have asymmetry with swelling on the right side near where the initial abscess was. This is also quite tender.? Slightly erythematous Results & Data Vital Signs (Past 12 Hours) Vital Signs Temp Pulse Resp BP Pulse Ox O2 Del Method 02/07/25 07:22 37.0 C 69 16 111/69 93 Room Air PG Care Time/CCT Total # of Minutes Spent Total Time Spent with Patient: Total time spent is greater than 50% in coordination of care (as documented) at patient's floor/unit and/or counseling patient: Coding Level of Care Code 77044 Post Operative Follow-Up Diagnoses Abdominal wall abscess L02.211
--- NOTE | 2025-02-07 10:49 | CT Scan Report ---
CT OF THE ABDOMEN AND PELVIS WITHOUT CONTRAST CLINICAL HISTORY: s/p i d R abd wall abscess, + pain/swelling COMPARISON STUDY: CT of the abdomen and pelvis January 29, 2025. KUB February 06, 2025. TECHNIQUE: Axial images of the abdomen and pelvis were obtained without IV contrast. Images were revi ewed in the axial, sagittal, and coronal planes. Automated exposure control was utilized for the kevin dy. A dose lowering technique was utilized adhering to the principles of ALARA. FINDINGS: Small right and trace left pleural effusions are present. Subpleural opacity favors atelect asis. No pneumatosis, free air or portal venous gas is present. Evaluation of the abdomen and pelvis is suboptimal on this unenhanced exam. A focus of sclerosis within the lateral right ninth rib favors a healing fracture. Pneumobilia is noted. There is no biliary ductal dilatation. The previously desc ribed peripancreatic hypodensities are better depicted on prior contrast enhanced CT. The previously described intraperitoneal fluid collection inferior to the right hepatic lobe has decreased in size s jonathan CT of January 29, 2025 although measurements are difficult to obtain on this unenhanced examination . This contains trace gas from recent drainage. Adjacent stranding is again noted. No new fluid colle ctions are present. Spleen and adrenal glands are unremarkable. There is no hydronephrosis. Water att enuation left lower pole renal lesion represents a cyst. A 4.1 cm infrarenal abdominal aortic aneurys m is unchanged. A 2.8 cm left common iliac artery aneurysm is also unchanged. Extensive aortoiliac at herosclerotic plaque. The prostate is enlarged. Fat-containing left inguinal hernia is noted. Colonic diverticulosis without evidence for acute diverticulitis. The appendix is normal. Right lower abdomi nal/right flank and buttock subcutaneous fluid is present. IMPRESSION: 1. Decrease in size of the right lateral intraperitoneal fluid collection since CT of January 29, 2025 f ollowing drainage. Small residual collection with adjacent stranding. Right flank and lateral right t high fluid and skin thickening. This favors edema. Cellulitis could appear similar. No new fluid garry ection. 2. No bowel obstruction. Colonic diverticulosis. No evidence for acute diverticulitis. 3. Small right and trace left pleural effusions. ACT 112: Negative or not required by law. Electronically signed by: Valente Manriquez M.D. 02/07/2025 10:47 AM
[2025-02-07] MEDS: SODIUM CHLORIDE 0.9% 1,000 ML IV SCH (13:08)
--- NOTE | 2025-02-07 14:03 | Hospitalist Progress Note ---
Date of Service February 07, 2025 Assessment & Plan (1) Right-sided chest wall pain: (2) Hypoxia: Plan 74-year-old male who was diagnosed with a fluid collection adjacent to the right eighth and ninth rib on 01/29/25 in the emergency room and was asked to follow-up with PCP for outpatient biopsy. However a biopsy could not be arranged and the patient was asked to come back to the emergency room. He returned with increasing pain at the site and was noted to be slightly hypoxic in the emergency room. Patient was not started on any antibiotics on admission as there was no fever or elevated white count and to get a non skewed biopsy finding. #Abdominal wall abscess Fluid collection adjacent to right eighth and ninth ribs Diagnostic laparoscopy with lysis of adhesions, laparoscopic drainage of abdominal wall abscess with Dr. Pickering on 02/05. EBL 10 cc, no complications noted, no gallstones identified Biopsy completed 02/03 showed purulent discharge with culture growing Klebsiella aerogenes and Streptococcus anginosus Downgraded from Ceftriaxone IV to Cefdinir 300 mg PO BID to start 3/15 AM KUB obtained due to firm abdomen, without evidence of SBO but noted stool burden. Suppository ordered by surgical team CT A/P obtained due to ongoing distention and pain, noted decrease in size of fluid collection following drainage. Significant stool retention throughout ascending, transverse, and descending colon Ordered 85 g of MiraLAX #Hypoxia Now resolved. Most likely the hypoxia was because of pain at the right lower ribs caused by deep inspiration. No shortness of breath at rest, peripheral edema. Nothing to suggest CHF or pneumonia Chest CT did not show fluid congestion BNP was only mildly elevated Continue incentive spirometer #Recent right humerus fracture Patient requested orthopedics consult since he was supposed to follow-up with orthopedics outpatient On-call orthopedic surgeon will inform Dr. Pantoja to see the patient while admitted #History of CVA Continue aspirin Hold Plavix until cleared to resume by surgical team Heart healthy diet #Hyperlipidemia Continue simvastatin #BPH Continue tamsulosin #Xic-ewxoepi-aicpbltnu diabetes mellitus type 2 Ordered a sliding scale insulin Hold metformin Diabetic diet community nutrition educator recommended the following: Prescriptions needed at discharge: One Touch Verio meter, One Touch Verio test strips to check 1X/day, One Touch Delica lancetsto check 1X/day. Use ICD- 10 E11.9 for insurance coverage Recommend drinking milk only with meals, drinking fair life milk instead for higher protein/lower carb content #Hypothyroidism Continue levothyroxine #Anxiety/depression Continue fluoxetine #GERD Continue Protonix DVT prophylaxis: Lovenox CODE STATUS: DNR/DNI Independently reviewed CT A/P Ordered bowel regimen Adjusted antibiotics Updated family members at bedside Admission and Anticipated Discharge Date Admission Date: February 01, 2025 Supervising Physician Co-Signing Physician Notes chart reviewed, case d/w S Jane LEONE Subjective Patient seen and evaluated at bedside with 2 family members present. He reports ongoing abdominal pain, worse on the right side. He did have a bowel movement yesterday after receiving a suppository. He ate all of his breakfast, states he has no appetite for lunch (family reports this is similar to his eating patterns at home). Family and RN report dark urine. Patient and family report that he does not drink any significant amount of water typically. Will order IV fluid x 1L. We also discussed transition to oral antibiotics pending surgery's opinion. All questions/concerns answered from medical perspective. Family still has some questions for surgical team. No additional complaints or concerns at this time. Physical Exam Physical Exam: General: No acute distress, nondiaphoretic, well-developed, well-nourished. Cardiac: Regular rate and rhythm without murmurs gallops or rubs. Pulm: Clear to auscultation bilaterally without wheezes, rales or rhonchi. Normal respiratory effort. 93% on room air. Abdominal: Firm but not rigid. Distended. Tender to palpation throughout abdomen, R>L. Surgical sites covered in Dermabond, no signs of infection. Neuro: A&O x3. No focal neurological deficits. Results & Data Results & Data Vital Signs (Past 12 Hours) Vital Signs Temp Pulse Resp BP Pulse Ox O2 Del Method 02/07/25 07:22 98.6 F 69 16 111/69 93 Room Air Laboratory Results Reviewed CBC with differential Diagnostic Findings Reviewed CT A/P Abdomen/Pelvis CT 02/07/25 09:39 CT OF THE ABDOMEN AND PELVIS WITHOUT CONTRAST CLINICAL HISTORY: s/p i d R abd wall abscess, + pain/swelling COMPARISON STUDY: CT of the abdomen and pelvis January 29, 2025. KUB February 06, 2025. TECHNIQUE: Axial images of the abdomen and pelvis were obtained without IV contrast. Images were reviewed in the axial, sagittal, and coronal planes. Automated exposure control was utilized for the study. A dose lowering technique was utilized adhering to the principles of ALARA. FINDINGS: Small right and trace left pleural effusions are present. Subpleural opacity favors atelectasis. No pneumatosis, free air or portal venous gas is present. Evaluation of the abdomen and pelvis is suboptimal on this unenhanced exam. A focus of sclerosis within the lateral right ninth rib favors a healing fracture. Pneumobilia is noted. There is no biliary ductal dilatation. The previously described peripancreatic hypodensities are better depicted on prior contrast enhanced CT. The previously described intraperitoneal fluid collection inferior to the right hepatic lobe has decreased in size since CT of January 29, 2025 although measurements are difficult to obtain on this unenhanced examination. This contains trace gas from recent drainage. Adjacent stranding is again noted. No new fluid collections are present. Spleen and adrenal glands are unremarkable. There is no hydronephrosis. Water attenuation left lower pole renal lesion represents a cyst. A 4.1 cm infrarenal abdominal aortic aneurysm is unchanged. A 2.8 cm left common iliac artery aneurysm is also unchanged. Extensive aortoiliac atherosclerotic plaque. The prostate is enlarged. Fat- containing left inguinal hernia is noted. Colonic diverticulosis without evidence for acute diverticulitis. The appendix is normal. Right lower abdominal/right flank and buttock subcutaneous fluid is present. IMPRESSION: 1. Decrease in size of the right lateral intraperitoneal fluid collection since CT of January 29, 2025 following drainage. Small residual collection with adjacent stranding. Right flank and lateral right thigh fluid and skin thickening. This favors edema. Cellulitis could appear similar. No new fluid collection. 2. No bowel obstruction. Colonic diverticulosis. No evidence for acute diverticulitis. 3. Small right and trace left pleural effusions. ACT 112: Negative or not required by law. Electronically signed by: Valente Manriquez M.D. 02/07/2025 10:47 AM PG Care Time/CCT Total # of Minutes Spent Total Time Spent with Patient: Total time spent is greater than 50% in coordination of care (as documented) at patient's floor/unit and/or counseling patient: Coding Level of Care Code 79646 SUB INP/OBS CARE 3/50MIN Diagnoses Right-sided chest wall pain R07.89 Hypoxia R09.02
[2025-02-07] MEDS: POLYETHYLENE (MIRALAX) 17 GM PACK PO ONE (18:33)
[2025-02-07] MEDS: CEFDINIR 300 MG CAP PO SCH (20:36)
[2025-02-08 06:41] LABS: Basophils # (auto) 0.02 K/uL (0.00-0.20); Basophils % (auto) 0.2 %; Eosinophils # (auto) 0.01 K/uL (0.00-0.50); Eosinophils % (auto) 0.1 %; Hematocrit (blood only) 33.3 % (42.0-52.0); Immature Granulocytes # (auto) 0.06 K/uL (0.01-0.20); Immature Granulocytes % (auto) 0.7 %; Lymphocytes # (auto) 0.98 K/uL (1.20-3.40); Lymphocytes % (auto) 11.3 %; Mean Corpuscular Hemoglobin 28.8 pg (25.0-34.0); Mean Corpuscular Volume 87.2 fL (80.0-100.0); Monocytes # (auto) 0.43 K/uL (0.11-0.59); Neutrophils # (auto) 7.17 K/uL (1.40-6.50); Neutrophils % (auto) 82.7 %; Platelet Count 302 K/uL (130-400); RDW Coefficient of Variation 15.3 % (11.5-14.5); RDW Standard Deviation 48.9 fL (36.4-46.3); Red Blood Count 3.82 M/uL (4.70-6.10); White Blood Count 8.67 K/ul (4.8-10.8)
[2025-02-08 07:19] LABS: BUN Creatinine Ratio 16.2 (10-20); Creatinine Clr Calc Pharmacy 104.6 ml/min; Potassium 3.5 mmol/L (3.5-5.1)
[2025-02-08] MEDS: LANTUS PER UNIT CHARGE SC SCH (09:09)
[2025-02-08] MEDS: POLYETHYLENE (MIRALAX) 17 GM PACK PO SCH (11:28)
--- NOTE | 2025-02-08 13:28 | Surgery Progress Note ---
Date of Service February 08, 2025 Assessment & Plan (1) Abdominal wall abscess: Plan: POD#3 Dx laparoscopy with drainage of abd wall abscess today wbc 8.6 (8), hbg 11. vitals are stable, no fevers pt reports feeling better today than previously he still remains tender in the R mid & upper abd & flank regions w/ some swelling compared to the L side. this is stable from yesterday no worse a CT scan was obtained yesterday for evaluation which showed decrease in size of fluid collection with some skin thickening/edema he was started on a bowel regimen for + stool burden with + BMs abx regimen now adjusted to po cefdinir. IR cultures grew strep anginosus and klebsiella serogense sensitive to multiple abx discussed pt w/ family yesterday who does not want to take pt home too soon. he appears to be having improvement overall, may need one more day to ensure co ntinued stability. but if eager to go home do not think this is unreasonable and can follow up in short order with dr. kaiser in the office. needs to continue on course of PO abx upon discharge pt seen/examined with dr. mccollum Admission and Anticipated Discharge Date Admission Date: February 01, 2025 Subjective pt reports pain is improved today. 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 on diet but low appetite. no n/v. bm reported overnight Physical Exam Physical Exam: awake, no distress Gastrointestinal (Abdomen): Inspection/Auscultation: + abdomen distended (mild) and + abdominal surgical incision (c/d/i, no signs of infection) Percussion/Palpation: + abdomen tender (tender to palpation mostly R mid abd/flank regions) and abdomen soft some R sided abdominal swelling noted compared to the L Results & Data Vital Signs (Past 12 Hours) Vital Signs Temp Pulse Resp BP Pulse Ox O2 Del Method 02/08/25 07:31 97.9 F 69 16 133/79 93 Room Air PG Care Time/CCT Total # of Minutes Spent Total Time Spent with Patient: Total time spent is greater than 50% in coordination of care (as documented) at patient's floor/unit and/or counseling patient: Coding Level of Care Code 59178 Post Operative Follow-Up Diagnoses Abdominal wall abscess L02.211
--- NOTE | 2025-02-08 15:09 | Hospitalist Progress Note ---
Date of Service February 08, 2025 Assessment & Plan (1) Right-sided chest wall pain: (2) Hypoxia: Plan 74-year-old male who was diagnosed with a fluid collection adjacent to the right eighth and ninth rib on 01/29/25 in the emergency room and was asked to follow-up with PCP for outpatient biopsy. However a biopsy could not be arranged and the patient was asked to come back to the emergency room. He returned with increasing pain at the site and was noted to be slightly hypoxic in the emergency room. Patient was not started on any antibiotics on admission as there was no fever or elevated white count and to get a non skewed biopsy finding. #Abdominal wall abscess Fluid collection adjacent to right eighth and ninth ribs Diagnostic laparoscopy with lysis of adhesions, laparoscopic drainage of abdominal wall abscess with Dr. Pickering on 02/05. EBL 10 cc, no complications noted, no gallstones identified Biopsy completed 02/03 showed purulent discharge with culture growing Klebsiella aerogenes and Streptococcus anginosus Continue cefdinir [address] A/P obtained due to ongoing distention and pain, noted decrease in size of fluid collection following drainage. Significant stool retention throughout ascending, transverse, and descending colon Ordered 85 g of MiraLAX - significant bowel movement overnight Recommend bowel regimen including daily MiraLAX to prevent chronic constipation #Hypoxia Now resolved. Most likely the hypoxia was because of pain at the right lower ribs caused by deep inspiration. No shortness of breath at rest, peripheral edema. Nothing to suggest CHF or pneumonia Chest CT did not show fluid congestion. BNP was only mildly elevated Continue incentive spirometer #Recent right humerus fracture Patient requested orthopedics consult since he was supposed to follow-up with orthopedics outpatient On-call orthopedic surgeon informed and hopefully will see patient while admitted #History of CVA Continue aspirin Plavix now resumed per clearance from surgical team Heart healthy diet #Hyperlipidemia Continue simvastatin #BPH Continue tamsulosin #Ixn-jyqvtkw-xxvpjjytq diabetes mellitus type 2 Ordered a sliding scale insulin Hold metformin Diabetic diet clinical informatics educator recommended the following: Prescriptions needed at discharge: One Touch Verio meter, One Touch Verio test strips to check 1X/day, One Touch Delica lancetsto check 1X/day. Use ICD- 10 E11.9 for insurance coverage Recommend drinking milk only with meals, drinking fair life milk instead for higher protein/lower carb content #Hypothyroidism Continue levothyroxine #Anxiety/depression Continue fluoxetine #GERD Continue Protonix DVT prophylaxis: Lovenox CODE STATUS: DNR/DNI Dispo: Anticipate discharge in next 24-48 hours pending improvement in abdominal symptoms Resumed Plavix Ordered daily MiraLAX Admission and Anticipated Discharge Date Admission Date: February 01, 2025 Supervising Physician Co-Signing Physician Notes chart reviewed, case d/w S Jane LEONE Subjective Patient seen and evaluated at bedside. He had a significant incontinent bowel movement overnight after receiving 85 g of MiraLAX due to significant stool burden noted on CT A/P. He states that his abdominal discomfort has reduced since this bowel movement overnight. 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 He reports a minimal appetite today. No additional complaints or concerns at this time. Physical Exam Physical Exam: General: No acute distress, nondiaphoretic, well-developed, well-nourished. Cardiac: Regular rate and rhythm without murmurs gallops or rubs. Pulm: Clear to auscultation bilaterally without wheezes, rales or rhonchi. Normal respiratory effort. 95% on room air. Abdominal: Soft, distended, tender to palpation on right-side. Bowel sounds present. Surgical sites covered in Dermabond, no signs of infection. Neuro: A&O x3. No focal neurological deficits. Results & Data Results & Data Vital Signs (Past 12 Hours) Vital Signs Temp Pulse Resp BP Pulse Ox O2 Del Method 02/08/25 14:27 97.7 F 67 16 127/79 95 Room Air 02/08/25 07:31 97.9 F 69 16 133/79 93 Room Air Laboratory Results Reviewed CBC with differential Reviewed BMP PG Care Time/CCT Total # of Minutes Spent Total Time Spent with Patient: Total time spent is greater than 50% in coordination of care (as documented) at patient's floor/unit and/or counseling patient: Coding Level of Care Code 45652 SUB INP/OBS CARE 2/35MIN Diagnoses Right-sided chest wall pain R07.89 Hypoxia R09.02
[2025-02-09 06:54] LABS: Basophils # (auto) 0.03 K/uL (0.00-0.20); Basophils % (auto) 0.5 %; Eosinophils # (auto) 0.05 K/uL (0.00-0.50); Eosinophils % (auto) 0.8 %; Hematocrit (blood only) 33.2 % (42.0-52.0); Immature Granulocytes # (auto) 0.03 K/uL (0.01-0.20); Immature Granulocytes % (auto) 0.5 %; Lymphocytes # (auto) 1.11 K/uL (1.20-3.40); Lymphocytes % (auto) 17.5 %; Mean Corpuscular Hemoglobin 29.1 pg (25.0-34.0); Mean Corpuscular Hgb Conc 33.1 g/dL (32.0-36.0); Mean Corpuscular Volume 87.8 fL (80.0-100.0); Mean Platelet Volume 8.9 fL (9.4-12.4); Monocytes # (auto) 0.39 K/uL (0.11-0.59); Monocytes % (auto) 6.1 %; Neutrophils # (auto) 4.75 K/uL (1.40-6.50); Neutrophils % (auto) 74.6 %; Platelet Count 335 K/uL (130-400); RDW Coefficient of Variation 15.2 % (11.5-14.5); RDW Standard Deviation 48.7 fL (36.4-46.3); Red Blood Count 3.78 M/uL (4.70-6.10); White Blood Count 6.36 K/ul (4.8-10.8)
[2025-02-09 07:23] LABS: BUN Creatinine Ratio 15.2 (10-20); Creatinine Clr Calc Pharmacy 107.8 ml/min; Potassium 3.4 mmol/L (3.5-5.1)
[2025-02-09 07:40] VITALS: RESP 16
[2025-02-09] MEDS: LANTUS PER UNIT CHARGE SC SCH (08:48)
[2025-02-09] MEDS: CLOPIDOGREL BISULFATE 75 MG TAB PO SCH (09:39)
[2025-02-09] MEDS: POTASSIUM CHLORIDE CRTAB 20 MEQ TABCR PO STA (09:39)
--- NOTE | 2025-02-09 13:56 | Surgery Progress Note ---
Date of Service February 09, 2025 Assessment & Plan (1) Abdominal wall abscess: Plan: POD#4 Dx laparoscopy with drainage of abd wall abscess WBC wnl , h/h stable , vss, no fevers TTP throughout abd , worse on right side, +subcutaneous swelling on right compared to left no skin color changes, less distention than prior +BMs Evaluated by PT /OT -safe to return home with family support Will need PO abx upon discharge f/u in office one week on d/c pt seen/examined with dr. mccollum Admission and Anticipated Discharge Date Admission Date: February 01, 2025 Subjective pt report no abd pain at rest tolerating diet , +bm Review of Systems Gastrointestinal: no abdominal pain, no nausea and no vomiting Physical Exam Constitutional: cooperative and comfortable; no acute distress Respiratory: normal respiratory effort; no respiratory distress Gastrointestinal (Abdomen): Inspection/Auscultation: + abdomen distended (mildly ) and + abdominal surgical incision (CDI dermabond no s/s infection ) Percussion/Palpation: + abdomen tender and abdomen soft Results & Data Vital Signs (Past 12 Hours) Vital Signs Temp Pulse Resp BP Pulse Ox O2 Del Method 02/09/25 07:40 97.9 F 71 16 134/75 95 Room Air Results CBC w Diff Results: RBC 3.78 M/uL (4.70-6.10) L 02/09/25 WBC 6.36 K/ul (4.8-10.8) 02/09/25 Hgb 11.0 g/dl (14.0-18.0) L 02/09/25 Hct 33.2 % (42.0-52.0) L 02/09/25 MCV 87.8 fL (80.0-100.0) 02/09/25 MCH 29.1 pg (25.0-34.0) 02/09/25 MCHC 33.1 g/dL (32.0-36.0) 02/09/25 RDW Standard Deviation 48.7 fL (36.4-46.3) H 02/09/25 RDW Coefficient of Variation 15.2 % (11.5-14.5) H 02/09/25 Plt Count 335 K/uL (130-400) 02/09/25 MPV 8.9 fL (9.4-12.4) L 02/09/25 Neutrophils (%) (Auto) 74.6 % 02/09/25 Lymphocytes (%) (Auto) 17.5 % 02/09/25 Monocytes # (Auto) 0.39 K/uL (0.11-0.59) 02/09/25 Eosinophils # (Auto) 0.05 K/uL (0.00-0.50) 02/09/25 Immature Granulocyte % (Auto) 0.5 % 02/09/25 Neutrophils # (Auto) 4.75 K/uL (1.40-6.50) 02/09/25 Lymphocytes # (Auto) 1.11 K/uL (1.20-3.40) L 02/09/25 Monocytes # (Auto) 0.39 K/uL (0.11-0.59) 02/09/25 Eosinophils # (Auto) 0.05 K/uL (0.00-0.50) 02/09/25 Basophils # (Auto) 0.03 K/uL (0.00-0.20) 02/09/25 Immature Granulocyte # (Auto) 0.03 K/uL (0.01-0.20) 5 Polychromasia 1+ 03/31/23 Echinocytes 2+ 03/31/23 Tear Drop Cells 1+ 09/12/24 Dohle Bodies 1+ 03/31/23 PG Care Time/CCT Total # of Minutes Spent Total Time Spent with Patient: Total time spent is greater than 50% in coordination of care (as documented) at patient's floor/unit and/or counseling patient: Coding Level of Care Code 65641 Post Operative Follow-Up Diagnoses Abdominal wall abscess L02.211
--- NOTE | 2025-02-09 16:11 | Hospitalist Progress Note ---
Date of Service February 09, 2025 Assessment & Plan (1) Right-sided chest wall pain: (2) Hypoxia: Plan 74-year-old male who was diagnosed with a fluid collection adjacent to the right eighth and ninth rib on 01/29/25 in the emergency room and was asked to follow-up with PCP for outpatient biopsy. However a biopsy could not be arranged and the patient was asked to come back to the emergency room. He returned with increasing pain at the site and was noted to be slightly hypoxic in the emergency room. Patient was not started on any antibiotics on admission as there was no fever or elevated white count and to get a non skewed biopsy finding. #Abdominal wall abscess Fluid collection adjacent to right eighth and ninth ribs s/p Diagnostic laparoscopy with lysis of adhesions, laparoscopic drainage of abdominal wall abscess with Dr. Pickering on 02/05. EBL 10 cc, no complications noted, no gallstones identified Biopsy completed 02/03 showed purulent discharge with culture growing Klebsiella aerogenes and Streptococcus anginosus Continue cefdinir 300 mg PO BID KUB obtained due to firm abdomen, without evidence of SBO but noted stool burden. Suppository ordered by surgical team CT A/P obtained due to ongoing distention and pain, noted decrease in size of fluid collection following drainage. Significant stool retention throughout ascending, transverse, and descending colon Ordered 85 g of MiraLAX - significant bowel movement overnight Recommend bowel regimen including daily MiraLAX to prevent chronic constipation #Hypoxia Now resolved. Most likely the hypoxia was because of pain at the right lower ribs caused by deep inspiration. No shortness of breath at rest, peripheral edema. Nothing to suggest CHF or pneumonia Chest CT did not show fluid congestion. BNP was only mildly elevated Continue incentive spirometer #Recent right humerus fracture Patient requested orthopedics consult since he was supposed to follow-up with orthopedics outpatient On-call orthopedic surgeon will inform Dr. Pantoja to see the patient while admitted #History of CVA Continue aspirin, Plavix Heart healthy diet #Hyperlipidemia Continue simvastatin #BPH Continue tamsulosin #Bex-msyubhu-deiiufrdw diabetes mellitus type 2 Ordered a sliding scale insulin Hold metformin Diabetic diet medical educator recommended the following: Prescriptions needed at discharge: One Touch Verio meter, One Touch Verio test strips to check 1X/day, One Touch Delica lancetsto check 1X/day. Use ICD- 10 E11.9 for insurance coverage Recommend drinking milk only with meals, drinking fair life milk instead for higher protein/lower carb content #Hypothyroidism Continue levothyroxine #Anxiety/depression Continue fluoxetine #GERD Continue Protonix Dispo: Anticipate discharge home 02/10 Updated family members at bedside Repleted potassium Admission and Anticipated Discharge Date Admission Date: February 01, 2025 Supervising Physician Co-Signing Physician Notes chart reviewed, case d/w S Jane LEONE Subjective Patient seen and evaluated at bedside with family members present. He is more talkative and appears to have more energy today. He denies abdominal pain, nausea. He does have tenderness on palpation of his abdomen R>L. He had another large bowel movement overnight. He ate about half of his breakfast and lunch. Awaiting PT eval but hopeful for discharge home tomorrow 02/10. Physical Exam Physical Exam: General: No acute distress, nondiaphoretic, well-developed, well-nourished. Cardiac: Regular rate and rhythm without murmurs gallops or rubs. Pulm: Clear to auscultation bilaterally without wheezes, rales or rhonchi. Normal respiratory effort. 95% on room air. Abdominal: Soft, distended, tender to palpation on right-side but improving. Bowel sounds present. Surgical sites covered in Dermabond, no signs of infection. Neuro: A&O x3. No focal neurological deficits. Results & Data Results & Data Vital Signs (Past 12 Hours) Vital Signs Temp Pulse Resp BP Pulse Ox O2 Del Method 02/09/25 14:14 97.5 F L 73 16 127/74 93 Room Air 02/09/25 07:40 97.9 F 71 16 134/75 95 Room Air Laboratory Results Reviewed CBC with differential Reviewed BMP - mild hypokalemia with K 3.4 PG Care Time/CCT Total # of Minutes Spent Total Time Spent with Patient: Total time spent is greater than 50% in coordination of care (as documented) at patient's floor/unit and/or counseling patient: Coding Level of Care Code 00565 SUB INP/OBS CARE 2/35MIN Diagnoses Right-sided chest wall pain R07.89 Hypoxia R09.02
[2025-02-10 07:29] VITALS: BP 126/80; PULSE 63; TEMP 98.1; O2SAT 92
--- NOTE | 2025-02-10 10:16 | Discharge Summary ---
Discharge Summary Date of Service February 10, 2025 Principal Dx & Hospital Course #1 = Principal Diagnosis (1) Right-sided chest wall pain: (2) Hypoxia: Plan 74-year-old male who was diagnosed with a fluid collection adjacent to the right eighth and ninth rib on 01/29/25 in the emergency room and was asked to follow-up with PCP for outpatient biopsy. However a biopsy could not be arranged and the patient was asked to come back to the emergency room. He returned with increasing pain at the site and was noted to be slightly hypoxic in the emergency room. Patient was not started on any antibiotics on admission as there was no fever or elevated white count and to get a non skewed biopsy finding. Started antibiotics after biopsy completed. #Abdominal wall abscess Fluid collection adjacent to right eighth and ninth ribs - s/p Diagnostic laparoscopy with lysis of adhesions, laparoscopic drainage of abdominal wall abscess with Dr. Pickering on 02/05. EBL 10 cc, no complications noted, no gallstones identified Biopsy completed 02/03 showed purulent discharge with culture grew Klebsiella aerogenes and Streptococcus anginosus Continue cefdinir 300 mg PO BID through 02/13 for 10 day total antibiotic course CT A/P obtained due to ongoing distention and pain, noted decrease in size of fluid collection following drainage. Significant stool retention throughout ascending, transverse, and descending colon 85 g of MiraLAX resulted in significant bowel movement Recommend bowel regimen including daily MiraLAX to prevent chronic constipation #Hypoxia Now resolved. Most likely the hypoxia was because of pain at the right lower ribs caused by deep inspiration. No shortness of breath at rest, peripheral edema. Nothing to suggest CHF or pneumonia Chest CT did not show fluid congestion. BNP was only mildly elevated Continue incentive spirometer #Recent right humerus fracture Patient requested orthopedics consult since he was supposed to follow-up with orthopedics outpatient Ortho repeated shoulder x-ray which showed stable internal fixation. Continue working with PT on strengthening and ROM #Maf-bcilocr-xhnwysrfk diabetes mellitus type 2 chemical educator recommended the following: Prescriptions needed at discharge: One Touch Verio meter, One Touch Verio test strips to check 1X/day, One Touch Delica lancetsto check 1X/day. Use ICD- 10 E11.9 for insurance coverage Recommend drinking milk only with meals, drinking fair life milk instead for higher protein/lower carb content #History of CVA Continue aspirin, Plavix, heart healthy diet #Hyperlipidemia Continue simvastatin #BPH Continue tamsulosin #Hypothyroidism Continue levothyroxine #Anxiety/depression Continue fluoxetine #GERD Continue Protonix Dispo: Discharged home 02/10 Notes For Next Care Provider Adjust diabetic regimen as needed, A1c 8.8% Recommend daily bowel regimen Medication Changes From Visit Cefdinir 300 mg BID through 02/13 Admission HPI Per Admitting Provider This is a 74-year-old male who presented with the above chief complaint. The patient was accompanied by his daughter at the bedside. The daughter was the source of most of the history. The daughter stated that the patient had been having a right-sided chest wall/flank pain for several weeks now and it is getting worse. He was seen 3 days ago in the emergency room and was found to have a fluid collection around the eighth and ninth rib. A surgery consult was done in the emergency room and the patient was referred for outpatient follow-up/biopsy. The daughter stated that they followed up with PCP but they were unable to send referrals for biopsies and the patient was instructed to come back to the emergency room. In the meantime, the daughter noticed that his pain was getting worse and he was having difficulty ambulating because of the pain. He was also noted to be short of breath at times because of the pain. In the emergency room, he had some screening tests done that did not show any leukocytosis but he was noted to have an elevated CRP. Chemistries, bilirubin were stable. CT chest showed no PE. The CT chest did not report the fluid collection and the official report however the ED physician stated that it was visible in the lower cuts. However I was not able to open the imaging to visualize it myself. His BNP was very mildly elevated. He did not report any orthopnea. On questioning the daughter stated that she did notice some dyspnea on exertion but the shortness of breath could have been related to pain upon ambulation. In the emergency room, the patient was also noted to be very mildly hypoxic at 88% room air. Of note, the patient had acute hypoxic respiratory failure after right humerus fracture back in August 2024, thought to be related to fat embolism. No leg swelling. Past medical history 1. Nzk-mjftsoh-afhlbjqlu diabetes mellitus type 2, on metformin 2. Hyperlipidemia, on simvastatin 3. Anxiety/depression. On fluoxetine 4. History of CVA. On aspirin and Plavix. Last dose of Plavix was 3/7 AM 5. GERD. On Protonix 6. BPH, on tamsulosin 7. Right humerus fracture in August 2024 8. Acute hypoxic respiratory failure due to fat embolus from right humerus fracture in August 2024 9. Laparoscopic cholecystectomy a year ago 10. ERCP biliary stent placement followed by removal of stent in November 2024. No percutaneous procedures were done in the last 2-3 months. The stent placement and removal were both endoscopic procedures 11. Possible early dementia, as the daughter states that he is increasingly fo rgetful these days. 12. History of melanoma Discharge Exam General: No acute distress, nondiaphoretic, well-developed, well-nourished. Cardiac: Regular rate and rhythm without murmurs gallops or rubs. Pulm: Clear to auscultation bilaterally without wheezes, rales or rhonchi. Normal respiratory effort. 95% on room air. Abdominal: Soft, distended, mild tenderness of R side. Bowel sounds present. Surgical sites covered in Dermabond, no signs of infection. Neuro: A&O x3. No focal neurological deficits. Discharge Plan Discharge Items Patient Disposition: Home - Self-Care Reason For Visit: R FLANK PAIN Discharge Diagnosis: diagnostic laparoscopy with drainage of abdominal abscess Activity: As commented below Lifting: No more than 10 pounds Bathing Comment: You can shower. no soaking in pools/baths for 2 weeks Exercise/Sports: Wait until after follow-up appointment Non-emergency contact: Primary Care Provider and Surgeon Call non-emergency contact if: your symptoms worsen, your pain is not controlled, your temperature is above 101, your wound has increased redness, your wound has increased drainage and your wound pain has increased Follow-up/Referrals: Deepak Pickering DO [Physician] - 02/14/25 9:45 am (call office for follow up in 1 week) Juanita Morgan MD [Primary Care Provider] - 02/20/25 8:20 am (Follow-up in 1-2 weeks APPOINTMENT WILL BE AT THE [facility] [address] [place] [address] [address]) Diet: Carb Consistent or DM2 and Heart Healthy Addtl Attending Provider Instructions: Mr. Hill, You were admitted to the hospital with a fluid collection near your right eighth an ninth ribs. You had laparoscopic drainage of this abdominal wall abscess with Dr. Pickering on 02/05/2025. You tolerated this surgery well and had no surgical complications. You were treated with IV antibiotics and will continue on oral antibiotics at home to complete your course. You were also found to be severely constipated and given an aggressive bowel regimen which was successful. Upon discharge from the hospital: * Take Cefdinir (oral antibiotic) twice daily through 02/13/25. You can take your evening dose tonight (02/10). This will complete a total of a 10 day antibiotic course. * Recommend following a bowel regimen at home to prevent chronic constipation. I recommend MiraLAX 1 capful in 8 oz of juice/water daily. * Start checking your blood sugar 1 time per day. Try to change the time checking from day to day. Aim to maintain BG values < 180 (ideally < 140 before meals) to support healing/continued recovery. * Notify your PCP of blood sugar values frequently > 180 or any value <80. * Recommended diabetic lifestyle changes: limit milk to with meals only other low/no sugar drinks between meals, change milk to Fairlife given lower sugar/higher protein content. * Follow-up with your PCP in 1-2 weeks. * Call the general surgery office to schedule a follow-up appointment with Dr. Pickering in 1 week. Please return to the hospital if you experience any of the following: Fever >100.5 F, lethargy, worsening of your abdominal pain, persistent nausea with vomiting, confusion, chest pain, shortness of breath, lightheadedness, passing out, or any other symptoms concerning for you. It was a pleasure taking care of you while you were in the hospital! 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 You may shower with this on. This will tend to come off within a couple of weeks. Do not pick at it. Pending Studies at Discharge: No Stand-Alone Forms: My [facility] [employer], Smoking Cessation Medications and DC Order Prescriptions: New (DME) blood-glucose meter Misc See Rx Instructions .Route Qty: 1 0RF Rx Instructions: to check 1x/day (DME) OneTouch Verio test strips Strip See Rx Instructions .Route Qty: 30 0RF Rx Instructions: to check 1x/day (DME) lancets 33 gauge misc See Rx Instructions .Route Qty: 100 0RF Rx Instructions: to check 1x/day cefdinir 300 mg Capsule 300 mg PO BID Qty: 7 0RF Continued clopidogrel 75 mg tablet 75 mg PO QAM Hold Instructions: Resume on 05/19/23. Patient Comments: has holding instructions metformin 500 mg tablet 1,000 mg PO BID pantoprazole 40 mg tablet,delayed release (DR/EC) 40 mg PO QAM Qty: 90 3RF aspirin 81 mg Tablet,Delayed Release (Dr/Ec) 81 mg PO DAILY Rx Instructions: Unable to verify OTC meds at this date/time. simvastatin 40 mg tablet 40 mg PO DAILY levothyroxine [Synthroid] 88 mcg tablet 88 mcg PO QAM tamsulosin 0.4 mg capsule 0.4 mg PO DAILY magnesium oxide 400 mg magnesium Tablet 400 mg PO BID Rx Instructions: Unable to verify OTC meds at this date/time. calcitriol 0.25 mcg Capsule 0.25 mcg PO QAM Qty: 30 0RF (DME) OneTouch Verio test strips Strip See Rx Instructions .Route Qty: 25 2RF Rx Instructions: to test blood glucose once per day nitroglycerin 0.3 mg tablet, sublingual 0.3 mg sublingual UD PRN (Reason: Chest Pain) Rx Instructions: Not on file w/ pharmacy at this date/time. polyethylene glycol 3350 [Miralax] 17 gram powder in packet 17 g PO DAILY PRN (Reason: constipation) Rx Instructions: Unable to verify OTC meds at this date/time. fluoxetine 40 mg capsule 40 mg PO HS Vitamin D3 Complete 18 mg iron-800 mcg-150 mg Tablet 1 tab PO DAILY Patient Comments: + vitamin c Rx Instructions: Unable to verify OTC meds at this date/time. Probiotic 3 billion cell Capsule 3,000 mmu cells PO DAILY Rx Instructions: Unable to verify OTC meds at this date/time. Discharge Orders: Discharge Order (Routine); Ordered 02/10/25 Ordered By: Betty Broussard/Other Patient Handouts: Managing Type 2 Diabetes Admission Data Admit Date/Time: 02/01/25 17:18 Attending Provider: Mynor Branham Admit Provider: Mika Lopez Primary Care Provider: Juanita Morgan Other Providers: Mika Lopez; Zhen Rios; Jacky Mendoza; Tosha Mclaughlin; Jennifer Marshall; Elodia Estes; Lino Barreto; Ban Cheng; Daniel Hardwick; Diane Scott; Arnel Colon; Saad Aguirre; Ainsley Cerna; Dane Correa; Hortensia Appiah; Fausto Pantoja; Shan Andrea; Marce Moore; Stephy Hernandez; Fan Echeverria; Elizabeth Izquierdo Hospital Stay Data Consultations 02/01/25 17:32 ED Decision to Admit Stat 02/01/25 17:35 Consult General Surgery Routine 02/02/25 00:59 Consult Orthopedic Surgery Routine Procedures Performed Operation Date: 02/05/25 12:20 Actual Procedures p Diagnostic Laparoscopy, lysis of adhesions, Drainage of abdominal Abscess(Not Applicable) - Deepak Pickering, DO Diagnostic Imagining Performed 02/01/25 13:28 CT angio chest PE protocol Stat 02/03/25 08:44 IR punc asp abs/armen/bulla/cys Routine 02/07/25 09:39 CT abd pelvis wo con Stat Pending Results Patient Have Any Pending Studies at Discharge: No Discharge Instructions Given to Patient (Per Discharging Provider) Melvin Celaya were admitted to the hospital with a fluid collection near your right eighth an ninth ribs. You had laparoscopic drainage of this abdominal wall abscess with Dr. Pickering on 02/05/2025. You tolerated this surgery well and had no surgical complications. You were treated with IV antibiotics and will continue on oral antibiotics at home to complete your course. You were also found to be severely constipated and given an aggressive bowel regimen which was successful. Upon discharge from the hospital: * Take Cefdinir (oral antibiotic) twice daily through 02/13/25. You can take your evening dose tonight (02/10). This will complete a total of a 10 day antibiotic course. * Recommend following a bowel regimen at home to prevent chronic constipation. I recommend MiraLAX 1 capful in 8 oz of juice/water daily. * Start checking your blood sugar 1 time per day. Try to change the time checking from day to day. Aim to maintain BG values < 180 (ideally < 140 before meals) to support healing/continued recovery. * Notify your PCP of blood sugar values frequently > 180 or any value <80. * Recommended diabetic lifestyle changes: limit milk to with meals only other low/no sugar drinks between meals, change milk to Fairlife given lower s ugar/higher protein content. * Follow-up with your PCP in 1-2 weeks. * Call the general surgery office to schedule a follow-up appointment with Dr. Pickering in 1 week. Please return to the hospital if you experience any of the following: Fever >100.5 F, lethargy, worsening of your abdominal pain, persistent nausea with vomiting, confusion, chest pain, shortness of breath, lightheadedness, passing out, or any other symptoms concerning for you. It was a pleasure taking care of you while you were in the hospital! Total Time Total Time Spent Total Time Spent (In Minutes): Greater than 30 minutes spent completing this discharge process including direct patient care, medication reconciliation, documentation, review of labs and images, and coordination of care. Coding Level of Care Code 27822 INP/OBS DISCH >30 MIN Diagnoses Right-sided chest wall pain R07.89 Hypoxia R09.02
== END 2025-02-10 12:42 | disposition home or self-care (01) | DRG 357 ==
LOC: SUATTDRO → ED 12:44 → 3W 17:18 → SUATTDRO 17:18 → 3W 19:34

== ENCOUNTER 2025-03-10 11:05 | Observation (INO) ==
--- NOTE | 2025-03-05 16:17 | Anesthesiology Consultation ---
Date of Service March 05, 2025 Assessment & Plan (1) Encounter for pre-operative examination: Plan - check BSG am DOS. - discharge summary 02/10/25 [facility]: "...diagnosed with a fluid collection adjacent to the right eighth and ninth rib on 01/29/25 in the emergency room and was asked to follow-up with PCP for outpatient biopsy. However a biopsy could not be arranged and the patient was asked to come back to the emergency room. He returned with increasing pain at the site and was noted to be slightly hypoxic in the emergency room. Patient was not started on any antibiotics on admission as there was no fever or elevated white count and to get a non skewed biopsy finding. Started antibiotics after biopsy completed...Abdominal wall abscess Fluid collection adjacent to right eighth and ninth ribs - s/p Diagnostic laparoscopy with lysis of adhesions, laparoscopic drainage of abdominal wall abscess with Dr. Pickering on 02/05. EBL 10 cc, no complications noted, no gallstones identified Biopsy completed 02/03 showed purulent discharge with culture grew Klebsiella aerogenes and Streptococcus anginosus Continue cefdinir 300 mg PO BID through 02/13 for 10 day total antibiotic course...Hypoxia Now resolved. Most likely the hypoxia was because of pain at the right lower ribs caused by deep inspiration. No shortness of breath at rest, peripheral edema. Nothing to suggest CHF or pneumonia...Recent right humerus fracture Patient requested orthopedics consult since he was supposed to follow-up with orthopedics outpatient Ortho repeated shoulder x-ray which showed stable internal fixation. Continue working with PT on strengthening and ROM..." - Per fisher trammel net on 03/05/25: No known infectious disease contacts, current infectious disease symptoms in past 10 days or COVID positive test result in the past 30 days. Chart Review Chart Review: Acceptable Risk for Surgery and Patient NOT seen in Pre Admission Testing History Surgery Operation Date: 03/10/25 12:30 Proposed Procedures p Incision and Drainage Chest or Abdominal Wall Abscess - Deepak Pickering DO Height/Weight Height: 6 ft Weight: 77.111 kg Allergies Allergy/AdvReac Type Severity Reaction Status Date / Time No Known Allergies Allergy Verified 03/10/25 11:14 Medications Home Medications Medication Instructions Recorded Confirmed Last Taken clopidogrel 75 mg tablet 75 mg PO QAM 08/17/20 03/10/25 03/05/25 09:00 metformin 500 mg tablet 1,000 mg PO BID 08/17/20 03/10/25 03/09/25 21:00 aspirin 81 mg tablet,delayed 81 mg PO DAILY 03/31/23 03/05/25 01/31/25 release levothyroxine 88 mcg tablet 88 mcg PO QAM 03/31/23 03/10/25 03/09/25 09:00 (Synthroid) magnesium oxide 400 mg PO BID 03/31/23 03/10/25 03/08/25 21:00 simvastatin 40 mg tablet 40 mg PO HS 03/31/23 03/10/25 03/09/25 21:00 tamsulosin 0.4 mg capsule 0.4 mg PO HS 03/31/23 03/10/25 03/09/25 21:00 blood sugar diagnostic (OneTouch #25 ea 04/14/23 03/05/25 Unknown Verio test strips) calcitriol 0.25 mcg capsule 0.25 mcg PO QAM #30 caps 04/14/23 03/10/25 03/09/25 09:00 fluoxetine 40 mg capsule 40 mg PO HS 05/12/23 03/10/25 03/09/25 21:00 nitroglycerin 0.3 mg sublingual 0.3 mg sublingual UD PRN Chest Pain 05/20/23 03/05/25 01/31/25 tablet polyethylene glycol 3350 17 gram 17 g PO DAILY PRN constipation 05/20/23 03/10/25 03/03/25 oral powder packet (Miralax) pantoprazole 40 mg tablet,delayed 40 mg PO QAM #90 tabs 06/08/23 03/10/25 03/09/25 09:00 release lactobacillus combination no.4 3 3,000 mmu cells PO DAILY 09/12/24 03/10/25 03/08/25 billion cell capsule (Probiotic) blood sugar diagnostic (OneTouch #30 ea 02/10/25 03/05/25 Unknown Verio test strips) blood-glucose meter #1 ea 02/10/25 03/05/25 Unknown lancets 33 gauge #100 ea 02/10/25 03/05/25 Unknown cefdinir 300 mg capsule 300 mg PO BID #12 caps 03/05/25 03/05/25 03/09/25 21:00 rrhulrmeyayl-[id number] acid-vit 1 tab PO DAILY 03/05/25 03/10/25 03/08/25 K-lycop 400 mcg-20 mcg-370 mcg tablet (Men's 50 Plus Daily Formula) Active Medications Generic Name Dose Route Start Last Admin Trade Name Andrea PRN Reason Stop Dose Admin Lactated Ringer's 1,000 mls @ 15 mls/hr 03/10/25 06:00 03/10/25 11:41 Lr IV 03/11/25 05:59 15 mls/hr .Q24H SOLANGE Administration Lactated Ringer's 1,000 mls @ 75 mls/hr 03/10/25 06:00 03/10/25 11:41 Lr IV 03/10/25 19:19 Not Given .[id number] SOLANGE Past Medical History Medical History Gallstone pancreatitis (~2022) History of CVA (cerebrovascular accident) entered into EMR 04/01/23 Hypothyroidism HTN (hypertension) hx History of dysphagia no recent issues Right-sided chest wall pain Diabetes mellitus, type 2 NIDDM Depression Hx of melanoma of skin removed Borderline hyperlipidemia Poor historian phone interview done by pts daughter History of COVID-19 11/16- congestion > resolved Aneurysm 4.2 cm infrarenal AAA; follows with Dr. Hood; 2.9 cm left common iliac artery aneurysm Enlarged prostate TIA (transient ischemic attack) x2, most recent 2009- residual problems with taking longer to process info Past Surgical History Surgical History Hx of melanoma excision History of open reduction and internal fixation (ORIF) procedure right humerus fx History of surgery (02/05/25) Diagnostic Laparoscopy, laparoscopic lysis of adhesions, laparoscopic Drainage of abdominal wall Abscess(Not Applicable) - Deepak Pickering DO H/O umbilical hernia repair (05/16/23) p Laparoscopic Cholecystectomy(Not Applicable) - Deepak Pickering DO s and Open Umbilical Hernia Repair(Not Applicable) - Deepak Pickering DO Hx laparoscopic cholecystectomy (05/16/23) p Laparoscopic Cholecystectomy(Not Applicable) - Deepak Pickering DO s and Open Umbilical Hernia Repair(Not Applicable) - Deepak Pickering DO Family history of reaction to anesthesia daughter > post-op nausea History of esophagogastroduodenoscopy (EGD) History of ERCP + stent (removed after gallbladder removed and then replaced and most recently removed 11/2024) S/P colonoscopy S/P hernia repair inguinal Social History Smoking Status: Former smoker tobacco type: smokeless tobacco Smoking cigarettes per day: quit smoking 40+ years Do You Dip or Chew Tobacco: Yes (advised) Smoking End Date: 40+ years ago Hx Alcohol Use: Yes Alcohol type: beer alcohol intake frequency: holidays/special occasions only Hx Substance Use: No substance use type: does not use Physical Exam Vital Signs Last Vital Signs Temp 36.4 C L 03/10/25 11:24 Pulse 93 H 03/10/25 11:24 Resp 20 03/10/25 11:24 BP 128/85 03/10/25 11:24 Pulse Ox 93 03/10/25 11:24 O2 Del Method Room Air 03/10/25 11:24 Lab Results Anesthesia Preop Results Results Anesthesia Widget: WBC 8.01 K/ul (4.8-10.8) 03/05/25 Hgb 12.4 g/dl (14.0-18.0) L 03/05/25 Hct 38.1 % (42.0-52.0) L 03/05/25 Plt 195 K/uL (130-400) 03/05/25 Na 132 mmol/L (136-145) L 03/05/25 K 3.6 mmol/L (3.5-5.1) 03/05/25 Cl 96 mmol/L (98-107) L 03/05/25 CO2 24 mmol/L (21-32) 03/05/25 BUN 20 mg/dl (6-23) 03/05/25 Creat 0.83 mg/dl (0.6-1.4) 03/05/25 Glucose Level 241 mg/dl (70-99(Fasting)) H 03/05/25 POC Glucose 256 mg/dl (70-99) H 03/10/25 PT 10.5 Seconds (9.0-12.0) 01/29/25 INR 1.0 (0.9-1.1) 01/29/25 HA1c 8.8 % (4.5-5.6) H 02/03/25 Urine Color Yellow 02/01/25 Urine Appearance Clear (Clear) 02/01/25 Urine pH 5.0 (4.5-7.5) 02/01/25 Urine Specific [place] > 1.045 (1.000-1.030) H 02/01/25 Urine Protein Negative (Negative) 02/01/25 Urine Glucose (UA) 3+ (Negative) H 02/01/25 Urine Ketones 1+ (Negative) H 02/01/25 Urine Blood Negative (Negative) 02/01/25 Urine Nitrite Negative (Negative) 02/01/25 Urine Bilirubin Negative (Negative) 02/01/25 Urine Urobilinogen Negative (Negative) 02/01/25 Urine Leukocyte Esterase Negative (Negative) 02/01/25 Testing Laboratory Results 03/10/25 11:16 POC Glucose 256 H Laboratory Tests 02/03/25 03/05/25 07:07 13:40 Hgb 12.4 L Plt Count 195 Potassium 3.6 Creatinine 0.83 Hemoglobin A1c 8.8 H Electrocardiogram Date: 02/01/25 NSR, rate 87 bpm Left anterior fascicular block Minimal voltage criteria for LVH, may be normal variant Chest X-Ray Date: 01/29/25 *1 view* No acute findings. Echocardiogram Date: 09/13/24 EF 40-45% Mild to moderate global hypokinesis of the LV Moderate cLVH Mildly dilated RV Mild aortic regurgitation Mild mitral regurgitation Moderate aortic root dilatation, 4.8 cm; ascending aorta diameter 4.5 cm (dimensions unchanged from prior study) Cervical Spine Date: 08/29/24 No acute cervical spine fracture or subluxation identified. Other Testing Abdomen pelvis CT 03/05/25 Small subpleural nodules within the lower lungs are unchanged from earlier exams. These are benign. Pneumobilia is noted status post cholecystectomy. There is no biliary ductal dilatation. There are no hepatic lesions. Spleen, adrenal glands are unremarkable. Several peripancreatic hypodensities remain unchanged. These may represent sequela of pancreatitis. There is a left lower pole renal cyst. Numerous subcentimeter bilateral renal lesions are too small to characterize but favor cysts. A 4.2 cm infrarenal abdominal aortic aneurysm is unchanged. A 2.9 cm left common iliac artery aneurysm is unchanged. There is extensive aortoiliac atherosclerotic plaque. No evidence for rupture. The appendix is normal. Colonic diverticulosis without evidence for acute diverticulitis. There is no evidence for a bowel obstruction. A multiloculated rim-enhancing right lateral abdominal fluid collection has increased in size since CT of February 07, 2025. This is also increased in size when compared to CT of January 29, 2025. This collection of several components which communicate. The superior component is inferior to the right hepatic lobe, along the peritoneum, measuring 6.8 x 2.1 cm. The inferior component is centered within the right lateral abdominal wall, measuring 5.8 x 3.1 cm. There is adjacent stranding. No soft tissue gas is present. IMPRESSION: 1. Increase in size of a multiloculated rim-enhancing right lateral abdominal fluid collection consistent with recurrent abscess, as described above. The superior component, along the peritoneal reflection, measures 6.8 x 2.1 cm and the inferior communicating component centered within the abdominal wall measures 5.8 x 3.1 cm. 2. No change in several peripancreatic hypodensities. These remain indeterminate but may represent the sequela of pancreatitis and can be assessed on follow-up exams to ensure continued stability/resolution. Chest CTA 02/01/25 1. No evidence of acute pulmonary embolism or acute aortic process. 2. Mildly dilated aortic root measuring 5.1 cm in diameter. No evidence of acute aortic process. 3. Mild cardiomegaly with coronary artery calcifications. 4. Trace right pleural effusion. Mild adjacent right basilar atelectasis. 5. Sub-6 mm pulmonary nodules. No routine follow-up is necessary based on Fleischner Society criteria. If patient is high risk for lung malignancy (i.e. history of smoking or malignancy), then follow-up chest CT can be performed in 12 months.
[2025-03-10] MEDS: LR 15ML/HR IV SCH (11:41)
[2025-03-10] MEDS: LACTATED RINGER'S 1,000 ML IV SCH (11:41)
--- NOTE | 2025-03-10 12:18 | History & Physical Bridge Note ---
Date of Service March 10, 2025 History & Physical Bridge Note I have examined the patient, reviewed the History & Physical and in the interval since the performance of the History & Physical I have noted the following changes of clinical significance: no changes noted
[2025-03-10] MEDS ORDERED: ONDANSETRON INJ 2 MG/ML 2 ML VIAL ONE (12:34)
[2025-03-10] MEDS ORDERED: DEXAMETHASONE SOD INJ 4 MG/ML VIAL ONE (12:34)
[2025-03-10] MEDS ORDERED: PROPOFOL IV EMULSION 10 MG/ML 20 ML VIAL IV ONE (12:34)
[2025-03-10] MEDS ORDERED: LIDOCAINE 2% 2 ML VIAL/AMP(20MG/ML) INFIL ONE (12:34)
[2025-03-10] MEDS ORDERED: fentaNYL citrate PF 100 MCG/2 ML VIAL ONE ×2 (12:35→13:14)
[2025-03-10] MEDS ORDERED: MIDAZOLAM HCL 1 MG/ML 2ML VIAL ONE (12:35)
[2025-03-10] MEDS ORDERED: ATROPINE SULFATE 0.1 MG/ML 10ML SYR IV PRN (12:43)
[2025-03-10] MEDS ORDERED: HYDROmorphone INJ 1 MG/ML SYRINGE IV PRN (12:43)
[2025-03-10] MEDS ORDERED: ONDANSETRON INJ 2 MG/ML 2 ML VIAL IV PRN (12:43)
[2025-03-10] MEDS: ceFAZolin 2000MG 2,000 MG/15 ML SYR IV SCH (12:50)
[2025-03-10] MEDS: BUPIVACAINE/EPINEPHRINE 0.5% MPF 1:200,000 30 ML VIAL ONE (13:15)
--- NOTE | 2025-03-10 13:24 | Post Operative Brief Note ---
PG Immediate Post Op with CF Date of Surgery March 10, 2025 Pre & Post Diagnosis Operation Date: 03/10/25 12:30 Pre-Op Diagnosis: Abdominal Wall/Chest wall Abscess, Abdominal Pain Post-Op Diagnosis: Abdominal Wall/chest wall abscess Abdominal Pain I identified the patient and participated in the time-out.: Yes Procedure Operation Date: 03/10/25 12:30 Actual Procedures p Incision and Drainage of Abdominal/Chest Wall Abscess(Right) - Deepak Pickering DO Surgeon Deepak Pickering DO Double End Tenoner Operator Diana Laguerre PA-C Estimated Blood Loss 5 Findings See Below Purulent fluid encountered upon entrance into abscess cavity Subfascial abdominal/chest wall abscess Specimens Specimen Description: 1. Abdominal abscess for culture 2. Abdominal abscess for cytology Anesthesia Type General Complications none Disposition Disposition: Recovery Room
--- NOTE | 2025-03-10 13:28 | Operative Report ---
PG Post Operative Report Pre & Post Diagnosis Operation Date: 03/10/25 12:30 Pre-Op Diagnosis: Abdominal Wall Abscess, Abdominal Pain Post-Op Diagnosis: Abdominal Wall Abscess, Abdominal Pain I identified the patient and participated in the time-out.: Yes Procedure Operation Date: 03/10/25 12:30 Actual Procedures p Incision and Drainage of Abdominal Wall Abscess(Right) - Deepak Pickering DO Surgeon Deepak Pickering DO Electronics Production Supervisor Diana Laguerre PA-C Estimated Blood Loss 5 Findings See Below Purulent fluid encountered upon entrance into abscess cavity Subfascial abdominal/chest wall abscess Specimens Abdominal abscess fluid for culture and cytology Drains None Anesthesia Type General Complications none Disposition Disposition: Recovery Room Indications 74 yo male with recurrent right chest/abdominal wall abscess Description of Procedure The patient was brought to the OR and placed in the lithotomy position. At this time he underwent General LMA anesthesia without issue. He was given appropriate pre-operative antibiotics. The right abdomen and chest were prepped and draped in the usual sterile fashion. A timeout was called. The procedure was verified as Incision and drainage of abdominal/chest wall abscess. Surgical, anesthesia and nursing teams agreed and the procedure was begun. After injection of 0.25% Marcaine with epinephrine, an incision was made directly over the most fluctuant area of abscess using a #15 blade scalpel. The muscle fascia was incised using electrocautery after elevating this with a hemostat clamp. Purulent fluid was encountered. Wide drainage was ensured. All loculations were broken up bluntly. There were multiple areas of loculations that were broken up bluntly. The fluid was sent for culture and cytology. At this time the incision was irrigated until clear. Hemostasis was achieved using electrocautery. Hemostasis was complete. The incision was packed with a wet to dry Kerlix. Sterile dressing was applied. The patient was awakened from anesthesia and taking to PACU having remained stable throughout the entire case. All needle and sponge counts correct x 2. The physician porcelain buildup assistant was present and scrubbed for the entire procedure. She was essential in positioning, prepping and draping the patient, retraction and exposure and placement of the dressing. I attest to the content of the Intraoperative Record and any orders documented therein. Any exceptions are noted below.
--- NOTE | 2025-03-10 13:49 | Anesthesiology Progress Note ---
Date of Service March 10, 2025 Anesthesia Post Procedure Vital Signs Vital Signs: Temp Pulse Pulse Resp BP Pulse Ox O2 Del Method 03/10/25 13:40 75 17 126/79 99 Oxymask 03/10/25 13:31 36.1 C L 77 24 126/77 97 Oxymask 03/10/25 11:24 36.4 C L 93 H 20 128/85 93 Room Air O2 Flow Rate 03/10/25 13:40 8 03/10/25 13:31 8 03/10/25 11:24 Transfer of Care Handoff Completed per policy Notes Mental Status: alert / awake / arousable Patient Amnestic to Procedure: Yes Nausea / Vomiting: adequately controlled Pain: adequately controlled Airway Patency, RR, SpO2: stable & adequate BP & HR: stable & adequate Hydration State: stable & adequate Anesthetic Complications: no major complications apparent
[2025-03-10] MEDS ORDERED: MoRPHine SULFATE 4 MG/ML 1 ML CARP\\VIAL IV PRN (15:10)
[2025-03-10] MEDS ORDERED: MoRPHine SULFATE 2 MG/ML CARP IV PRN (15:10)
[2025-03-10] MEDS ORDERED: oxyCODONE HCL IR 5 MG TAB (IMMEDIATE RELEASE) PO PRN ×2 (15:10)
[2025-03-10] MEDS ORDERED: POLYETHYLENE (MIRALAX) 17 GM PACK PO PRN (15:10)
[2025-03-10] MEDS ORDERED: ACETAMINOPHEN 325 MG TAB PO PRN (15:10)
[2025-03-10] MEDS: SIMVASTATIN 40 MG TAB PO SCH (22:04)
[2025-03-10] MEDS: FLUoxetine HCL 20 MG CAP PO SCH (22:04)
[2025-03-10] MEDS: CEFDINIR 300 MG CAP PO SCH (22:04)
[2025-03-10] MEDS: TAMSULOSIN HCL 0.4 MG CAP PO SCH (22:04)
[2025-03-11] MEDS ORDERED: PHARMACY GLYCEMIC MGMT CONSULT PRN (00:59)
[2025-03-11] MEDS ORDERED: GLUCOSE 10 TAB/TUBE PO PRN (01:30)
[2025-03-11] MEDS ORDERED: CARBOHYDRATES FOR HYPOGLYCEMIA PO PRN (01:30)
[2025-03-11] MEDS ORDERED: DEXTROSE 50% 50 ML SYRINGE IV PRN (01:30)
[2025-03-11] MEDS ORDERED: GLUCAGON FOR INJ 1 MG VIAL SQ PRN (01:30)
[2025-03-11] MEDS ORDERED: GLUCOSE 40% GEL 15 GM TUBE PO PRN (01:30)
[2025-03-11 02:13] VITALS: RESP 16
[2025-03-11] MEDS: INSULIN ASPART PER UNIT CHARGE SC STA (02:19)
[2025-03-11] MEDS: LANTUS PER UNIT CHARGE SC STA (02:19)
[2025-03-11] MEDS: LEVOTHYROXINE SODIUM 88 MCG TABLET PO SCH (06:18)
[2025-03-11 07:12] LABS: Basophils # (auto) 0.01 K/uL (0.00-0.20); Basophils % (auto) 0.1 %; Eosinophils # (auto) 0.02 K/uL (0.00-0.50); Eosinophils % (auto) 0.3 %; Hematocrit (blood only) 33.6 % (42.0-52.0); Immature Granulocytes # (auto) 0.13 K/uL (0.01-0.20); Immature Granulocytes % (auto) 1.7 %; Lymphocytes # (auto) 1.64 K/uL (1.20-3.40); Mean Corpuscular Hemoglobin 28.9 pg (25.0-34.0); Mean Corpuscular Hgb Conc 32.7 g/dL (32.0-36.0); Mean Corpuscular Volume 88.4 fL (80.0-100.0); Mean Platelet Volume 9.6 fL (9.4-12.4); Monocytes # (auto) 0.43 K/uL (0.11-0.59); Monocytes % (auto) 5.8 %; Neutrophils # (auto) 5.24 K/uL (1.40-6.50); Neutrophils % (auto) 70.1 %; Platelet Count 283 K/uL (130-400); RDW Coefficient of Variation 16.7 % (11.5-14.5); RDW Standard Deviation 54.3 fL (36.4-46.3); White Blood Count 7.47 K/ul (4.8-10.8)
[2025-03-11 07:40] LABS: BUN Creatinine Ratio 26.8 (10-20); Calcium 8.7 mg/dl (8.6-10.3); Creatinine Clr Calc Pharmacy 93.3 ml/min
[2025-03-11 07:53] VITALS: O2SAT 97
[2025-03-11] MEDS: PANTOprazole 40 MG TAB PO SCH (08:50)
[2025-03-11] MEDS: LANTUS PER UNIT CHARGE SC SCH (08:51)
[2025-03-11] MEDS: INSULIN ASPART PER UNIT CHARGE SC SCH (08:54)
--- NOTE | 2025-03-11 09:56 | Pharmacy Report ---
Pharmacy Glycemic Short Note 2 - Date of Service March 11, 2025 - Glycemic Short BSG Results (Last 24 hours): 03/10/25 03/10/25 03/10/25 11:16 13:33 16:45 Glucose POC Glucose 256 H 239 H 268 H 03/11/25 03/11/25 03/11/25 02:15 06:21 07:54 Glucose 205 H POC Glucose 268 H 183 H OUTPATIENT ANTIDIABETIC REGIMEN: * Metformin 1gram PO BID * 8.8% 02/03/25 ASSESSMENT: * 74 yo M, POD 1 I&D of abdominal wall abscess, hyperglycemic, pharmacy consulted, patient received 10 units basal and 6 units bolus insulin ~0100 this morning. * Blood sugar 183mg this morning, will continue with basal bolus insulin and titrate to goal blood sugar. PLAN FOR INPATIENT GLYCEMIC CONTROL: * Hold outpatient oral diabetes medications * Basal insulin * Lantus 15 units SQ daily * Bolus insulin * NovoLog per scale ACHS or Q6hrs while NPO * Goal Range: Low 110 mg/dL - High 140 mg/dL * Correction Factor: 20 mg/dL/unit * Nutritional / Prandial insulin per carb ratio of 1 unit per 7 grams CHO consumed
[2025-03-11 11:39] VITALS: PULSE 60; TEMP 97.3
--- NOTE | 2025-03-11 11:41 | Surgery Progress Note ---
Date of Service March 11, 2025 Assessment & Plan (1) Abscess, intra-abdominal, postoperative: Plan: POD 1 incision and drainage chest wall seen at bedside with Dr Pickering dressing and packing removed wound repacked with moist kerlix and covered with 4x4, abd and medipore tape pt to do daily dressing changes will need to follow up in office next week with Dr Pickering Case management in and to set up home nursing to assist with dressing changes Discussed culture results with pharmacy , placed on oral Bactrim DS script sent to pharmacy for 2 week course anticipate d/c today pending home nursing set up. Admission and Anticipated Discharge Date Admission Date: March 10, 2025 Supervising Physician Co-Signing Physician Notes Doing well POD#1 I&D Dressing changed at bedside, looks good Will need once daily dressing changes, 1 inch iodoform packing Bactrim x 14 days, cultures growing Klebsiella Can be d/c today as long as home health is set up for dressing changes or if family is ok with doing them Subjective no complaints Review of Systems Constitutional: no fever and no chills Respiratory: no dyspnea Integumentary: + wounds Physical Exam Constitutional: cooperative and comfortable; no acute distress Respiratory: normal respiratory effort; no respiratory distress Skin: + wound Results & Data Vital Signs (Past 12 Hours) Vital Signs Temp Pulse Pulse Resp BP BP Pulse Ox 03/11/25 07:52 97.5 F L 55 L 16 113/67 97 03/11/25 02:13 97.5 F L 57 L 16 110/70 96 O2 Del Method 03/11/25 07:52 Room Air 03/11/25 02:13 Room Air Results CBC w Diff Results: RBC 3.80 M/uL (4.70-6.10) L 03/11/25 WBC 7.47 K/ul (4.8-10.8) 03/11/25 Hgb 11.0 g/dl (14.0-18.0) L 03/11/25 Hct 33.6 % (42.0-52.0) L 03/11/25 MCV 88.4 fL (80.0-100.0) 03/11/25 MCH 28.9 pg (25.0-34.0) 03/11/25 MCHC 32.7 g/dL (32.0-36.0) 03/11/25 RDW Standard Deviation 54.3 fL (36.4-46.3) H 03/11/25 RDW Coefficient of Variation 16.7 % (11.5-14.5) H 03/11/25 Plt Count 283 K/uL (130-400) 03/11/25 MPV 9.6 fL (9.4-12.4) 03/11/25 Neutrophils (%) (Auto) 70.1 % 03/11/25 Lymphocytes (%) (Auto) 22.0 % 03/11/25 Monocytes # (Auto) 0.43 K/uL (0.11-0.59) 03/11/25 Eosinophils # (Auto) 0.02 K/uL (0.00-0.50) 03/11/25 Immature Granulocyte % (Auto) 1.7 % 03/11/25 Neutrophils # (Auto) 5.24 K/uL (1.40-6.50) 03/11/25 Lymphocytes # (Auto) 1.64 K/uL (1.20-3.40) 03/11/25 Monocytes # (Auto) 0.43 K/uL (0.11-0.59) 03/11/25 Eosinophils # (Auto) 0.02 K/uL (0.00-0.50) 03/11/25 Basophils # (Auto) 0.01 K/uL (0.00-0.20) 03/11/25 Immature Granulocyte # (Auto) 0.13 K/uL (0.01-0.20) 5 Polychromasia 1+ 03/31/23 Echinocytes 2+ 03/31/23 Tear Drop Cells 1+ 09/12/24 Dohle Bodies 1+ 03/31/23 PG Care Time/CCT Total # of Minutes Spent Total Time Spent with Patient: Total time spent is greater than 50% in coordination of care (as documented) at patient's floor/unit and/or counseling patient: Coding Level of Care Code 02548 Post Operative Follow-Up Diagnoses Abscess, intra-abdominal, postoperative T81.43XA
[2025-03-11] MEDS: SULFAMETHOXAZOLE/TRIMETHOPRIM DS 800/160MG TAB PO SCH (12:29)
[2025-03-11 13:59] VITALS: BP 110/70
== END 2025-03-11 16:51 | disposition home health service (06) ==
LOC: 3E 11:05 → ASU 11:05